=== PATIENT | male | born 1940 | race Caucasian/White ===

== ENCOUNTER 2020-07-11 10:26 | Outpatient (REF) | payer MEDICARE, MEDICAID, SELFPAY ==
[2020-07-11 11:09] LABS: Hematocrit 39.7 % (42-52); Hemoglobin 12.4 g/dl (14.0-18.0); Mean Corpuscular HGB Conc 31.2 g/dl (31.0-36.0); Mean Corpuscular Hemoglobin 27.8 pg (27.0-33.0); Mean Platelet Volume 11.3 fL (9.4-12.4); Platelet Count 246 X10*3/uL (160-400); Red Blood Count 4.46 X10*6/uL (4.60-5.80); Red Cell Distribution Width 14.2 % (11.0-16.0); White Blood Count 10.1 X10*3/uL (4.8-10.8)
[2020-07-11 11:39] LABS: Alanine Aminotransferase 13 U/L (0-40); Albumin Level 3.9 g/dL (3.5-5.0); Alkaline Phosphatase 95 U/L (39-117); Anion Gap 13 (12-20); Aspartate Amino Transferase 16 U/L (5-37); Bilirubin Total 0.5 mg/dL (0.0-1.0); Blood Urea Nitrogen 28 mg/dL (9-16); Calcium 9.4 mg/dL (8.4-10.2); Carbon Dioxide 34 mmol/L (22-29); Chloride 99 mmol/L (96-108); Cholesterol 271 mg/dL; Estimated Glomerular Filt Rate 49; Glucose Random 237 mg/dL (60-115); HDL Cholesterol 40 mg/dL; LDL Cholesterol Calculated 171 mg/dl; Potassium 4.9 mmol/L (3.3-5.1); Sodium 141 mmol/L (135-145); Total Protein 7.1 g/dL (6.5-8.0); Triglycerides 300 mg/dL
[2020-07-11 11:46] LABS: Creatinine Urine 100.23 mg/dL; Microalbum/Creatinine Ratio Ur 259.4 ug/mg cr
[2020-07-11 12:02] LABS: Thyroid Stimulating Hormone 1.87 uIU/mL (0.32-4.0)
[2020-07-11 12:13] LABS: Estimated Average Glucose 217 mg/dL; Hemoglobin A1c % 9.2 %
== END 2020-07-11 10:27 | disposition home or self-care (01) ==
LOC: HO.LAB 10:26
PROVIDERS: PCP Internal Medicine; Visit Provider Internal Medicine
DX: I10 Essential (primary) hypertension (principal); E78.00 Pure hypercholesterolemia, unspecified; E13.9 Other specified diabetes mellitus without complications
CPT/HCPCS: 36415; 80053; 80061; 82043; 83036; 84443; 85027

== ENCOUNTER 2020-07-27 11:24 | Inpatient (IN) | payer MEDICARE, MEDICAID, SELFPAY ==
[2020-07-27] VITALS (7 sets, daily range): BP systolic 111–185; BP diastolic 49–70; PULSE 61–88; RESP 16–19; TEMP 36.6–37.7; O2SAT 94–99; BMI 36.0
--- NOTE | ~2020-07-27 | US_ITS ---
EXAMINATION: US EXTRACRANIAL CAROTID DUPLEX, BILATERAL CLINICAL INFORMATION: CVA COMPARISON: None TECHNIQUE: Real-time ultrasound and Doppler techniques (integrating B-mode 2-D vascular images, Doppler spectral analysis and color-flow Doppler imaging) were utilized to interrogate the extracranial carotid arteries, the vertebral arteries and proximal subclavian arteries bilaterally. The degree of stenosis is determined by criteria similar to NASCET. FINDINGS: Right Side: 1. There is minimal atherosclerotic plaque seen in the bifurcation/proximal ICA region. 2. The common carotid artery PSV proximally is 149 cm/s and distally 123 cm/s. 3. The proximal internal carotid artery velocities are 90 cm/s systolic and 25 cm/s diastolic. 4. The proximal external carotid artery PSV is 159 cm/s. 5. The vertebral artery shows antegrade flow. 6. The subclavian artery waveforms are normal. Left Side: 1. There is minimal atherosclerotic plaque seen in the bifurcation/proximal ICA region. 2. The common carotid artery PSV proximally is 116 cm/s and distally 99 cm/s. 3. The proximal internal carotid artery velocities are 111 cm/s systolic and 26 cm/s diastolic. 4. The proximal external carotid artery PSV is 92 cm/s. 5. The vertebral artery shows antegrade flow. 6. The subclavian artery waveforms are normal. US/US carotid duplex BI IMPRESSION: 1. RIGHT: Minimal, non-hemodynamically significant stenosis of the proximal right internal carotid artery corresponding to a 0-49% stenosis by velocity criteria. 2. LEFT: Minimal, non-hemodynamically significant stenosis of the proximal left internal carotid artery corresponding to a 0-49% stenosis by velocity criteria.
--- NOTE | ~2020-07-27 | MR_ITS ---
EXAMINATION: BRAIN MRI WITHOUT CONTRAST CLINICAL INFORMATION: Altered mental status. Question acute stroke. New finding on CT scan. COMPARISON: CT scan of the head 07/27/2020. TECHNIQUE: Multiplanar MR imaging of the brain was performed without contrast. FINDINGS: There is restricted diffusion associated with an acute infarct involving the vascular territory of left posterior cerebral artery. There are a few small foci of magnetic susceptibility artifact within the cortical koch matter of the left occipital lobe demonstrated on the gradient recalled echo imaging that presumably represents petechial microhemorrhage. No overt hematoma. Numerous foci of T2 FLAIR signal hyperintense are also visualized within the periventricular white matter and griffin. No intracranial mass effect or midline shift. No abnormal extra-axial collection. Lateral and third ventricles are proportionate to the subarachnoid spaces. No hydrocephalus. Midline structures including the cervicomedullary junction are normal. No acute bone marrow signal changes. There is a small left mastoid effusion. Mild paranasal sinus disease primarily affecting the ethmoid air cells. Globes and orbits are symmetric. MR/MR head/brain wo con IMPRESSION: There is an acute infarct involving the vascular territory of left posterior cerebral artery and there is some curvilinear magnetic susceptibility artifact presumably representing a manifestation of petechial microhemorrhage. No overt parenchymal hematoma. Numerous chronic small vessel seen changes are also visualized throughout the periventricular white matter and griffin.
--- NOTE | ~2020-07-27 | XR_ITS ---
EXAMINATION: XR ABDOMEN KUB CLINICAL INDICATION: Exam. Evaluate for foreign body. MRI needed. COMPARISON: None TECHNIQUE: AP view of the abdomen. FINDINGS: The bowel gas pattern is normal with no evidence of ileus or obstruction. No unusual soft tissue calcifications are noted. Facet arthropathy is seen at the L4-L5 and L5-S1 level bilaterally. Iliac artery and superficial femoral artery calcifications seen bilaterally. No metallic radiopaque foreign body. XR/XR abdomen 1V IMPRESSION: No metallic radiopaque foreign body identified about the abdomen or pelvis.
--- NOTE | ~2020-07-27 | CT_ITS ---
EXAMINATION: CT ANGIOGRAM HEAD CT ANGIOGRAM NECK CLINICAL INFORMATION: Stroke. COMPARISON: CT head from 07/27/2020. Brain MRI from 07/27/2020. TECHNIQUE: Initial noncontrast pharmacy intake technician imaging of the head and neck was performed. Comparison is made with noncontrast head CT from earlier today. Test bolus sequences followed by intravenous administration 70 mL of Omnipaque 350. Helical imaging was performed in the axial plane from the aortic arch to the skull vertex. Delayed postcontrast imaging of the head was also performed. The data was processed at the certified ophthalmic technologist's workstation for generation of MIP sequences. Angled MIPs and volume rendered reformatted images were also generated at an offline 3D workstation. Stenoses are assessed in accordance with NASCET criteria unless otherwise indicated. DLP: 1573 mGy-cm This CT examination was performed using dose optimization techniques as appropriate, variously including the following: *Automated exposure control. *Adjustment of mA and/or kV according to patient size (this includes techniques or standardized protocols for targeted exams where dose is matched to indication/reason for exam; i.e. extremities or head). *Use of iterative reconstruction technique. FINDINGS: CT Head: Loss of waters-white matter differentiation throughout the parasagittal right occipitoparietal lobes correlating with previously demonstrated acute infarction. There is a superimposed on chronic encephalomalacia of the high left parietal lobe. Scattered hypoattenuation in the periventricular and deep white matter are consistent with moderate microangiopathy. Waters-white matter differentiation is preserved. Proportional prominence of the ventricles and sulcal spaces. No evidence for obstructive hydrocephalus. No abnormal mass effect or midline shift. No extra-axial fluid collections. No pathologic intra-axial arterial enhancement. No acute soft tissue or osseous abnormalities. Moderate mucosal thickening of the paranasal sinuses. The mastoid air cells and middle ear cavities are clear. CT Neck: The thyroid gland and remaining cervical soft tissues are within normal limits. Reversal the normal cervical lordosis centered on C4. Moderate to advanced degenerative disc disease from C2-C7 with disc-osteophyte complex formation. There appears to be at least mild spinal canal stenosis from C3-C6. Moderate to advanced facet and uncovertebral joint arthropathy from C3-C7. CT Upper Chest: The visualized lung apices and upper mediastinum are within normal limits. Neck CTA: Aortic Arch: Normal contour and caliber with moderate calcific atherosclerotic disease. Classic 3 vessel branching pattern of the aortic arch. Great Vessel Origins: No significant stenosis of the branch origins. Right Common Carotid Artery: Normal opacification without focal stenosis or occlusion. Cervical Right Internal Carotid Artery: Mild calcific atherosclerotic disease of the carotid bulb and proximal internal carotid artery without flow-limiting stenosis. Left Common Carotid Artery: Normal opacification without focal stenosis or occlusion. Cervical Left Internal Carotid Artery: Calcific atherosclerotic disease of the carotid bulb and proximal internal carotid artery causing less than 50% stenosis. Cervical Right Vertebral Artery: Dominant. The right vertebral artery is diminutive from its origin and largely terminates as the posterior inferior cerebellar artery. Threadlike continuation to the basilar artery. Cervical Left Vertebral Artery: The left vertebral artery is threadlike from its origin with concomitant decreased caliber of the foramen transversarium transversarium. Brain CTA: Intracranial Internal Carotid Arteries: Moderate calcific atherosclerotic disease of the intracranial internal carotid arteries without occlusion or flow-limiting stenosis. Normal contrast opacification of the petrous, cavernous, paraophthalmic, and supraclinoid segments of the internal carotid arteries without focal stenosis. 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 Right Anterior Cerebral Artery: The A1 segment is diminutive. Normal opacification of the distal segments of the DEMETRIO. Left Anterior Cerebral Artery: Normal A1 segment. Normal opacification of the distal segments of the DEMETRIO. Anterior Communicating Artery: Normal. Right Middle Cerebral Artery: Normal opacification of the M1 segment of the MCA without focal stenosis or occlusion. Normal arborization of the distal segments. Left Middle Cerebral Artery: Normal opacification of the M1 segment of the MCA without focal stenosis or occlusion. Normal arborization of the distal segments. Right Vertebral Artery: Normal opacification of the V4 segment. Normal opacification of the proximal segments of the posterior inferior cerebellar artery. Left Vertebral Artery: The V4 segment is minimally opacified with multifocal moderate irregular narrowings. Basilar Artery: The proximal basilar artery is threadlike in nature. The mid to distal basilar artery is reconstituted and largely fed by prominent left-sided trigeminal artery. Normal appearance of the proximal superior cerebellar arteries. Right Posterior Cerebral Artery: Normal P1 segment. Normal opacification of the distal segments of the MOVING PICTURE OPERATOR. Left Posterior Cerebral Artery: Normal P1 segment. Normal opacification of the distal segments of the MOVING PICTURE OPERATOR. CT/CT angio head neck stroke IMPRESSION: 1. Evolving acute infarct of the left occipitoparietal lobe as demonstrated on previous examinations. No demonstrated evidence of hemorrhagic conversion. Moderate underlying microangiopathy. 2. CTA of the head and neck is notable for a diminutive vertebrobasilar system (including the bilateral vertebral arteries and proximal basilar artery). The distal basilar artery and posterior cerebral arteries are largely fed by a prominent left-sided persistent trigeminal artery. Otherwise, CTA of the head and neck without proximal occlusion. 3. Advanced multilevel degenerative spondyloarthropathy of the cervical spine. There appears to be at least mild spinal canal stenosis from C3-C6.
--- NOTE | ~2020-07-27 | XR_ITS ---
EXAMINATION: XR CHEST CLINICAL INFORMATION: Acute mental status change. COMPARISON: 07/06/2019 chest/rib radiographs. TECHNIQUE: Frontal view of the chest was obtained. FINDINGS: No significant abnormality is noted involving the heart, lungs, mediastinum, bony thorax or soft tissues. XR/XR chest 1V IMPRESSION: No acute cardiopulmonary process.
--- NOTE | ~2020-07-27 | CT_ITS ---
EXAMINATION: CT HEAD WITHOUT CONTRAST CLINICAL INFORMATION: Acute mental status change. COMPARISON: None TECHNIQUE: Contiguous axial imaging was performed from the skull base to vertex without intravenous administration of contrast. This CT examination was performed using dose optimization techniques as appropriate, variously including the following: *Automated exposure control *Adjustment of mA and/or kV according to patient size (this includes techniques or standardized protocols for targeted exams where dose is matched to indication/reason for exam; i.e. extremities or head) *Use of iterative reconstruction technique DLP: 681 mGy-cm FINDINGS: An area of low-attenuation is seen in the left posterior parietal and occipital regions in the distribution of the left os or cerebral artery. No definitive hemorrhage, mass effect or midline shift is seen. There is mild widening of the cortical sulci and associated ventriculomegaly. Periventricular microvascular changes are seen most pronounced adjacent to the frontal horns. The lateral ventricles are symmetrical. The third and fourth ventricles are in their normal midline position. The basilar and prepontine cisterns are unremarkable. Sections through the bony calvarium are unremarkable. The orbits are intact. Mild mucosal thickening is seen in the paranasal sinuses. The remainder of the visualized paranasal sinuses are clear without air-fluid levels. The mastoid air cells are clear. CT/CT head/brain wo con IMPRESSION: 1. Age-indeterminate infarct in the distribution of the left posterior cerebral artery involving the left posterior parietal and occipital lobes. An acute infarct cannot be excluded. MRI is recommended to better assess for acuity. This critical result was discussed with Dr. Weathers at 12:30 PM on 05/26/2021 and it was ascertained that the content and urgency of the report was understood at the time of direct communication.
--- NOTE | 2020-07-27 11:26 | ED_ITS ---
HPI - Altered Mental Status General Chief Complaint: Altered Mental Status Stated Complaint: AMS PER VNA Time Seen by Provider: 07/27/20 11:31 Source: patient and EMS Mode of arrival: EMS Limitations: altered mental status History of Present Illness HPI narrative: 79 yo male with COPD, HTN, DM here with confusion reported by his [facility]NA the visit today, last known well not known - he has no complaints but is only oriented to person at this time, BS stable with EMS MD complaint: altered mental status Onset (ago): unknown Timing confirmed by: caregiver Severity: mild Consistency of symptoms: constant Context: COPD Associated symptoms: denies other symptoms Related Data Home Medications Medication Instructions Recorded Confirmed amlodipine 10 mg PO BEDTIME 07/27/20 07/27/20 aspirin 81 mg PO DAILY 07/27/20 07/27/20 atorvastatin 80 mg PO BEDTIME 07/27/20 07/27/20 cholecalciferol (vitamin D3) 25 mcg PO DAILY 07/27/20 07/27/20 furosemide 40 mg PO DAILY 07/27/20 07/27/20 glimepiride 4 mg PO DAILY 07/27/20 07/27/20 hydralazine 25 mg PO BID 07/27/20 07/27/20 insulin asp prt-insulin aspart 37 unit SUBCUT BEDTIME 07/27/20 07/27/20 [Novolog Mix 70-30FlexPen U-100] insulin asp prt-insulin aspart 48 unit SUBCUT DAILY 07/27/20 07/27/20 [Novolog Mix 70-30FlexPen U-100] losartan 100 mg PO DAILY 07/27/20 07/27/20 metoprolol succinate 150 mg PO DAILY 07/27/20 07/27/20 omeprazole 20 mg PO DAILY@0630 07/27/20 07/27/20 Allergies Allergy/AdvReac Type Severity Reaction Status Date / Time Penicillins [PENICILLINS] Allergy Intermediate RASH Unverified 02/24/20 17:47 Review of Systems Review of Systems: ROS unable to be obtained due to altered mental status [facility] Past Medical History Attestation statement: The following information was validated with the patient. Source: old records reviewed Medical History (Updated 07/27/20 @ 15:04 by Penny Weathers DO) COPD (chronic obstructive pulmonary disease) Diabetes HTN (hypertension) Hyperlipidemia Pneumonia Social History Social History (Updated 07/27/20 @ 11:34 by Penny Weathers DO) Alcohol intake: unknown Smoking Status: Smoker, status unknown Use of substances other than those prescribed or required for medical reasons: Unknown Advance Directives: No Advance Directives Information Provided: No Physical Exam Vital Signs: Vital Signs: Last Vital Signs Temp 99.9 F 07/27/20 11:34 Pulse 69 07/27/20 11:34 Resp 18 07/27/20 11:34 BP 180/64 H 07/27/20 11:34 Pulse Ox 98 07/27/20 11:34 Body Mass Index 36.0 Appearance: Alert. Oriented X1. No acute distress. Eyes: Pupils equal, round and reactive to light. ENT: Pharynx normal. Neck: Normal inspection. Neck supple. CVS: Normal heart rate and rhythm. Pulses normal. Respiratory: No respiratory distress. Breath sounds normal. Abdomen: Soft and nontender. Skin: Skin warm and dry. Normal skin color. Normal skin turgor. Extremities: No lower extremity edema. No calf ttp Neuro: Oriented X 1. No motor deficit. No sensory deficit. patient denies visual changes, states he has normal sensation, patient was not ambulated NIH Stroke Scale Internal: Initial- Upon Arrival Level of Consciousness: Not Alert; but arousable by minor stimulation Level of Consciousness Questions: Answers one question correctly Level of Consciousness Commands: Performs both tasks correctly Best Gaze: Normal Visual: No visual loss Facial Palsy: Normal Motor Arm (Right): No drift Motor Arm (Left): No drift Motor Leg (Right): No drift Motor Leg (Left): No drift Limb Ataxia: Absent Sensory: Normal Best Language: No aphasia Dysarthia: Normal Extinction and Inattention: No abnormality Score: 2 Course Course Course Narrative: call from Radiology : 1231 pm 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 ?subacute no shift no hemorrhage xrays ordered for FB needs MRI for ?acute stroke family states AMS since yesterday - no implants or metal in body for MRI MRI acute stroke - planned admit, neurology and workers compensation coordinator involved - 81mg ASA daily, will see in ED, okay to keep here MDM - Altered Mental Status MDM Narrative Medical decision making narrative: 79 yo male with COPD, HTN, HPL, DM here with AMS noted by VNA I do not know his last known well, lives alone per EMS - he has no focal deficits other than only oriented to self, follows all commands, no signs of trauma at this time will need labs, CXR, venous blood gas, ETOH level, head CT dispo per results and findings. Lab Data Result diagrams: 07/27/20 12:43 07/27/20 12:43 Labs: Lab Results 07/27/20 07/27/20 07/27/20 Range/Units 12:42 12:42 12:43 WBC 9.2 (4.8-10.8) X10*3/uL RBC 4.28 L (4.60-5.80) X10*6/uL Hgb 11.9 L (14.0-18.0) g/dl Hct 38.2 L (42-52) % MCV 89.3 (80-98) fL MCH 27.8 (27.0-33.0) pg MCHC 31.2 (31.0-36.0) g/dl RDW 14.5 (11.0-16.0) % Plt Count 259 (160-400) X10*3/uL MPV 11.3 (9.4-12.4) fL Immature Gran % (Auto) 0.3 (0.0-0.4) % Neut % (Auto) 66.9 (45-73) % Lymph % (Auto) 22.9 (20-40) % Levy % (Auto) 7.2 (2-11) % Eos % (Auto) 2.3 (0-4) % Baso % (Auto) 0.4 (0-2) % Lymph # (Auto) 2.1 (1.2-4.9) X10*3/uL Levy # (Auto) 0.7 (0.1-1.2) X10*3/uL Eos # (Auto) 0.2 (0.0-0.4) X10*3/uL Baso # (Auto) 0.0 (0.0-0.2) X10*3/uL Abs Immat Gran (auto) 0.03 (0.00-0.03) X10*3/uL Absolute Neuts (auto) 6.2 (2.0-8.3) X10*3/uL Absolute Nucleated RBC 0.000 (0.0-0.012) X10*3/uL Nucleated RBC % (auto) 0.0 (0.0-0.2) /100WBC PT (10.8-13.0) SEC INR (0.9-1.1) APTT (24.1-38.0) SEC VBG pH 7.40 (7.32-7.43) VBG pCO2 62 mmHg VBG pO2 43 mmHg VBG HCO3 38 mmol/L VBG O2 Saturation 67.0 % VBG Base Excess 11.8 mmol/L Sodium (135-145) mmol/L Potassium (3.3-5.1) mmol/L Chloride (96-108) mmol/L Carbon Dioxide (22-29) mmol/L Anion Gap (12-20) BUN (9-16) mg/dL Creatinine (0.5-1.4) mg/dL Estim Creat Clear Calc Estimated GFR Random Glucose (60-115) mg/dL Calcium (8.4-10.2) mg/dL Magnesium (1.6-2.6) mg/dL Total Bilirubin (0.0-1.0) mg/dL Direct Bilirubin (0.0-0.5) mg/dL AST (5-37) U/L ALT (0-40) U/L Alkaline Phosphatase (39-117) U/L Ammonia (13-55) umol/L Total Creatine Kinase (38-174) U/L Troponin I High Sens 10.1 (<3.5-35.0) ng/L Total Protein (6.5-8.0) g/dL Albumin (3.5-5.0) g/dL Lipase (8-78) U/L Ethyl Alcohol mg/dL COVID-19 (SHANA) (Negative) COVID-19 Clin Com 07/27/20 07/27/20 07/27/20 Range/Units 12:43 12:43 12:43 WBC (4.8-10.8) X10*3/uL RBC (4.60-5.80) X10*6/uL Hgb (14.0-18.0) g/dl Hct (42-52) % MCV (80-98) fL MCH (27.0-33.0) pg MCHC (31.0-36.0) g/dl RDW (11.0-16.0) % Plt Count (160-400) X10*3/uL MPV (9.4-12.4) fL Immature Gran % (Auto) (0.0-0.4) % Neut % (Auto) (45-73) % Lymph % (Auto) (20-40) % Levy % (Auto) (2-11) % Eos % (Auto) (0-4) % Baso % (Auto) (0-2) % Lymph # (Auto) (1.2-4.9) X10*3/uL Levy # (Auto) (0.1-1.2) X10*3/uL Eos # (Auto) (0.0-0.4) X10*3/uL Baso # (Auto) (0.0-0.2) X10*3/uL Abs Immat Gran (auto) (0.00-0.03) X10*3/uL Absolute Neuts (auto) (2.0-8.3) X10*3/uL Absolute Nucleated RBC (0.0-0.012) X10*3/uL Nucleated RBC % (auto) (0.0-0.2) /100WBC PT 12.9 (10.8-13.0) SEC INR 1.1 (0.9-1.1) APTT 39.5 H (24.1-38.0) SEC VBG pH (7.32-7.43) VBG pCO2 mmHg VBG pO2 mmHg VBG HCO3 mmol/L VBG O2 Saturation % VBG Base Excess mmol/L Sodium 142 (135-145) mmol/L Potassium 4.1 (3.3-5.1) mmol/L Chloride 100 (96-108) mmol/L Carbon Dioxide 35 H (22-29) mmol/L Anion Gap 11 L (12-20) BUN 22 H (9-16) mg/dL Creatinine 1.16 (0.5-1.4) mg/dL Estim Creat Clear Calc 52.8 Estimated GFR > 60 Random Glucose 101 D (60-115) mg/dL Calcium 9.5 (8.4-10.2) mg/dL Magnesium 2.0 (1.6-2.6) mg/dL Total Bilirubin 0.7 (0.0-1.0) mg/dL Direct Bilirubin 0.2 (0.0-0.5) mg/dL AST 12 (5-37) U/L ALT 11 (0-40) U/L Alkaline Phosphatase 90 (39-117) U/L Ammonia 23 (13-55) umol/L Total Creatine Kinase 75 (38-174) U/L Troponin I High Sens (<3.5-35.0) ng/L Total Protein 6.8 (6.5-8.0) g/dL Albumin 3.8 (3.5-5.0) g/dL Lipase 13 (8-78) U/L Ethyl Alcohol mg/dL COVID-19 (SHANA) (Negative) COVID-19 Clin Com 07/27/20 07/27/20 Range/Units 12:43 13:00 WBC (4.8-10.8) X10*3/uL RBC (4.60-5.80) X10*6/uL Hgb (14.0-18.0) g/dl Hct (42-52) % MCV (80-98) fL MCH (27.0-33.0) pg MCHC (31.0-36.0) g/dl RDW (11.0-16.0) % Plt Count (160-400) X10*3/uL MPV (9.4-12.4) fL Immature Gran % (Auto) (0.0-0.4) % Neut % (Auto) (45-73) % Lymph % (Auto) (20-40) % Levy % (Auto) (2-11) % Eos % (Auto) (0-4) % Baso % (Auto) (0-2) % Lymph # (Auto) (1.2-4.9) X10*3/uL Levy # (Auto) (0.1-1.2) X10*3/uL Eos # (Auto) (0.0-0.4) X10*3/uL Baso # (Auto) (0.0-0.2) X10*3/uL Abs Immat Gran (auto) (0.00-0.03) X10*3/uL Absolute Neuts (auto) (2.0-8.3) X10*3/uL Absolute Nucleated RBC (0.0-0.012) X10*3/uL Nucleated RBC % (auto) (0.0-0.2) /100WBC PT (10.8-13.0) SEC INR (0.9-1.1) APTT (24.1-38.0) SEC VBG pH (7.32-7.43) VBG pCO2 mmHg VBG pO2 mmHg VBG HCO3 mmol/L VBG O2 Saturation % VBG Base Excess mmol/L Sodium (135-145) mmol/L Potassium (3.3-5.1) mmol/L Chloride (96-108) mmol/L Carbon Dioxide (22-29) mmol/L Anion Gap (12-20) BUN (9-16) mg/dL Creatinine (0.5-1.4) mg/dL Estim Creat Clear Calc Estimated GFR Random Glucose (60-115) mg/dL Calcium (8.4-10.2) mg/dL Magnesium (1.6-2.6) mg/dL Total Bilirubin (0.0-1.0) mg/dL Direct Bilirubin (0.0-0.5) mg/dL AST (5-37) U/L ALT (0-40) U/L Alkaline Phosphatase (39-117) U/L Ammonia (13-55) umol/L Total Creatine Kinase (38-174) U/L Troponin I High Sens (<3.5-35.0) ng/L Total Protein (6.5-8.0) g/dL Albumin (3.5-5.0) g/dL Lipase (8-78) U/L Ethyl Alcohol < 10 mg/dL COVID-19 (SHANA) Negative (Negative) COVID-19 Clin Com See Note ECG Data ECG #1: Attestation: I personally reviewed and interpreted this ECG as follows: ECG interpretation date: 07/27/20 ECG interpretation time: 12:26 Interpretation: Rate: 63 Rhythm: NSR with occ PVCs Spelter: normal Normal P waves. Normal LAUREN. Normal QRS complex. ST T wave : no NEAL, normal qTC: normal prior studies: no acute ischemia The study has been interpreted contemporaneously by me. . Discharge Plan Discharge Clinical Impression: Acute CVA (cerebrovascular accident), Acute alteration in mental status Patient Disposition: Admitted As Inpatient
--- NOTE | 2020-07-27 12:22 | ECG_ITS ---
Test Reason : HYPERTENSION Blood Pressure : / mmHG Vent. Rate : 063 BPM Atrial Rate : 063 BPM P-R Int : 170 ms QRS Dur : 080 ms QT Int : 394 ms P-R-T Axes : 042 008 021 degrees QTc Int : 403 ms Sinus rhythm with frequent Premature ventricular complexes Nonspecific T changes abnormal ecg When compared to the previous EKG of Premature ventricular complexes Present Referred By: Penny Weathers Electronically Signed By:Mao Reddy
[2020-07-27 12:51] LABS: MANUAL DIFF FLAG NO
[2020-07-27 12:57] LABS: Base Excess VBG 11.8 mmol/L; HCO3 VBG 38 mmol/L; PCO2 VBG 62 mmHg; PO2 VBG 43 mmHg
[2020-07-27 12:58] LABS: Basophils Percent Auto 0.4 % (0-2); Eosinophils Absolute Auto 0.2 X10*3/uL (0.0-0.4); Eosinophils Percent Auto 2.3 % (0-4); Hematocrit 38.2 % (42-52); Hemoglobin 11.9 g/dl (14.0-18.0); Imm Gran Abs Auto 0.03 X10*3/uL (0.00-0.03); Imm Gran Pct Auto 0.3 % (0.0-0.4); Lymphocytes Absolute Auto 2.1 X10*3/uL (1.2-4.9); Lymphocytes Percent Auto 22.9 % (20-40); Mean Corpuscular HGB Conc 31.2 g/dl (31.0-36.0); Mean Corpuscular Hemoglobin 27.8 pg (27.0-33.0); Mean Corpuscular Volume 89.3 fL (80-98); Mean Platelet Volume 11.3 fL (9.4-12.4); Monocytes Absolute Auto 0.7 X10*3/uL (0.1-1.2); Monocytes Percent Auto 7.2 % (2-11); Neutrophils Absolute Auto 6.2 X10*3/uL (2.0-8.3); Neutrophils Percent Auto 66.9 % (45-73); Platelet Count 259 X10*3/uL (160-400); Red Blood Count 4.28 X10*6/uL (4.60-5.80); Red Cell Distribution Width 14.5 % (11.0-16.0); White Blood Count 9.2 X10*3/uL (4.8-10.8)
[2020-07-27] MEDS: Acetaminophen 325 MG TABLET 650 MG PO (12:58)
[2020-07-27 13:12] LABS: Ammonia 23 umol/L (13-55)
[2020-07-27 13:13] LABS: INTERNATIONAL NORM RATIO 1.1 (0.9-1.1); Prothrombin Time 12.9 SEC (10.8-13.0)
[2020-07-27 13:16] LABS: Partial Thromboplastin Time 39.5 SEC (24.1-38.0)
[2020-07-27 13:22] LABS: Ethanol < 10 mg/dL
[2020-07-27 13:24] LABS: Alanine Aminotransferase 11 U/L (0-40); Albumin Level 3.8 g/dL (3.5-5.0); Alkaline Phosphatase 90 U/L (39-117); Anion Gap 11 (12-20); Aspartate Amino Transferase 12 U/L (5-37); Bilirubin Direct 0.2 mg/dL (0.0-0.5); Bilirubin Total 0.7 mg/dL (0.0-1.0); Blood Urea Nitrogen 22 mg/dL (9-16); Calcium 9.5 mg/dL (8.4-10.2); Carbon Dioxide 35 mmol/L (22-29); Chloride 100 mmol/L (96-108); Creatinine Clr Calc Pharmacy 52.8; Estimated Glomerular Filt Rate > 60; Glucose Random 101 mg/dL (60-115); Lipase 13 U/L (8-78); Potassium 4.1 mmol/L (3.3-5.1); Sodium 142 mmol/L (135-145); Total Protein 6.8 g/dL (6.5-8.0)
[2020-07-27 13:25] LABS: COVID-19 Test Negative (Negative); IDNOW Serial# 9DD0AD1C
[2020-07-27 13:25] LABS: Troponin-I High Sensitivity 10.1 ng/L (<3.5-35.0)
--- NOTE | 2020-07-27 14:00 | MHC.STROKE ---
Addendum entered by Keke Hager RN 07/31/20 14:30: 07/30/20 1752, patient was discharged to [facility], I clarified this with Case Managment. Addendum entered by Keke Hager RN 07/28/20 15:49: I MET WITH THE PATIENT TODAY IN ICU OVERFLOW. HE WAS VERY COOPERATIVE. HIS NIHSS = 5. RIGHT HEMIANOPSIA, NEGLECT AND ATAXIA. I REVIEWED THE STROKE EDUCATION BOOKLET, HIS INDIVIDUAL RISK FACTORS, HIS MRI IMAGE WITH THE LOCATION OF THE STROKE AND HOW THAT AFFECTS HIS VISION ON THE RIGHT SIDE OF EACH EYE. I SPENT TIME EXPLAINING HIS DEFICIT. HE COULD NOT IDENTIFY WHEN HE LOST HIS VISION. I ANSWERED ALL OF HIS QUESTIONS. I WILL CONTINUE TO FOLLOW. Addendum entered by Keke Hager RN 07/27/20 16:14: I REVIEWED THE MRI WITH DR BENJAMIN. HE WILL SEE THE PATIENT TONIGHT. NO NEED TO TRANSFER. ADMIT TO TELEMETRY. SEE HIS NOTE ONCE HE EXAMINES THE PATIENT. Original Note: 1118 EMS PRE-NOTIFICATION, ARRIVED AT 1124. C/O AMS, FOUND BY VNA. LAST KNOWN WELL YESTERDAY PER FAMILY. 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 AWAKE, ALERT, BU UNABLE TO ANSWER EITHER QUESTION CORRECTLY OR FOLLOW COMMANDS. DIFFICULT TO TEST VISUAL FIELD, AWAIT NEUROLOGY EXAM FOR COMPLETE NIHSS. BP ELEVATED 180/64. 1255 PASSED SWALLOW SCREEN. TYLENOL GIVEN WITOUT DIFFICULTY AT 1258. PMH AND STROKE RISK FACTORS INCLUDE: HTN, HDL, DM. I DID SPEAK WITH DR GLASER AND SHE HAS UPDATED THE FAMILY. I WILL CONTINUE TO FOLLOW.
[2020-07-27] MEDS: Aspirin Enteric Coated 325 MG TABLET.DR PO (14:28)
--- NOTE | 2020-07-27 14:33 | PC.NURSE ---
PT TOLERATING PO W/O ISSUE. MEDICATED FURTHER PER EMAR. PLAN FOR MRI D/T CT SCAN FINDINGS, SCREENING FORM COMPLETED W FAMILY ASSISTANCE. PT C/O R SIDE VISION LOSS WHICH IS NEW FOR HIM TODAY, PT STS.
--- NOTE | 2020-07-27 16:10 | PC.NURSE ---
RETURNED FROM MRI, AWAITING NEURO CONSULT. PER NEUOLOGY, NO NEED FOR TRANSPORT TO HIGHER LEVEL OF CARE, PLAN FOR INPT ADMISSION.
--- NOTE | 2020-07-27 17:06 | PM.EVENT ---
Event Note Date of Service: 07/27/20 Event Note: Patient seen and examined independently and was present during busby portion of E/M service. Agree with midlevel's history, physical, assessment, and plan. 79M presented with ams found to have acute cva acute cva antiplatelet, statin, neuro eval, rehab
--- NOTE | 2020-07-27 17:14 | PM.NEUROCN ---
History of Present Illness Data of Consult Service Date: 07/27/20 Primary Care Provider: Gonzales Ross MD HPI Reason for consult: Altered mental status This is a 79-year-old man was a poor historian was brought in because the family noted altered mental status. He has a history of hypertension and hyperlipidemia,Diabetes and GERD.He denies any complaints specifically headache dizziness weakness or numbness. He has a right homonymous hemianopsia but is totally unaware of it. Review of Systems Eyes: Eyes: Reports no additional eye complaints ENT: Reports system reviewed and no additional complaints, except as documented and Reports Normal hearing present Cardiovascular: Cardiovascular: Reports no additional cardiovascular complaints Respiratory: Respiratory: Reports no additional respiratory complaints Gastrointestinal: Gastrointestinal: Reports no additional gastrointestinal complaints Genitourinary: Genitourinary: Reports no additional male genitourinary complaints Musculoskeletal: Musculoskeletal: Reports no additional musculoskeletal complaints Integumentary/Breasts: Skin/Breast: Reports system reviewed and no additional complaints, except as docu Neurologic: Reports as per HPI and Reports Normal hearing present Psychiatric: Psychiatric: Reports as per HPI Endocrine: Endocrine: Reports no additional endocrine complaints Hematologic/Lymphatic: Hematologic/Lymphatic: Reports no additional hematologic/lymphatic complaints Allergic/Immunologic: Allergic/Immunologic: Reports no additional allergic/immunologic complaints [facility] Past Medical History Medical History (Updated 07/27/20 @ 17:17 by Fidel Alva MD) COPD (chronic obstructive pulmonary disease) Diabetes HTN (hypertension) Hyperlipidemia Pneumonia Social History Social History (Updated 07/27/20 @ 11:34 by Penny Weathers DO) Alcohol intake: unknown Smoking Status: Smoker, status unknown Use of substances other than those prescribed or required for medical reasons: Unknown Advance Directives: No Advance Directives Information Provided: No Meds Allergies Allergy/AdvReac Type Severity Reaction Status Date / Time Penicillins [PENICILLINS] Allergy Intermediate RASH Unverified 02/24/20 17:47 Active Medications: Current Medications Generic Name Dose Route Start Last Admin Trade Name Freq PRN Reason Stop Dose Admin Acetaminophen 650 mg 07/27/20 17:07 Acetaminophen 325 Mg Tablet PO Q6H PRN Pain, Mild (Pain Scale 1-3) Amlodipine Besylate 10 mg 07/27/20 21:00 Amlodipine Besylate 10 Mg Tablet PO BEDTIME EBER Protocol Aspirin 81 mg 07/28/20 09:00 Aspirin Enteric Coated 81 Mg Tablet. PO DAILY REPLACED BY [facility] Atorvastatin Calcium 80 mg 07/27/20 21:00 Atorvastatin Calcium 80 Mg Tablet PO BEDTIME REPLACED BY [facility] Furosemide 40 mg 07/28/20 09:00 Furosemide 40 Mg Tablet PO DAILY REPLACED BY [facility] Protocol Glipizide 10 mg 07/28/20 09:00 Glipizide 10 Mg Tablet PO DAILY REPLACED BY [facility] Hydralazine HCl 25 mg 07/27/20 21:00 Hydralazine Hcl 25 Mg Tablet PO BID REPLACED BY [facility] Protocol Metoprolol Succinate 150 mg 07/28/20 09:00 Metoprolol Succinate Er 100 Mg Tab.Er.24h PO DAILY REPLACED BY [facility] Protocol Omeprazole 20 mg 07/28/20 06:30 Omeprazole 20 Mg Capsule. PO DAILY@0630 REPLACED BY [facility] Ondansetron HCl 4 mg 07/27/20 17:07 Ondansetron Hcl 4 Mg/2 Ml Vial IVPUSH Q8H PRN Nausea and Vomiting Pharmacy Consult 1 each 07/27/20 11:34 Consult Rx Perform Med Rec MISCELLANE ONCE PRN Consult order Sodium Chloride 3 ml 07/28/20 00:00 0.9 % Sodium Chloride Flush 3 Ml Syringe IVFLUSH QSHIFT REPLACED BY [facility] Vitamin D 25 mcg 07/28/20 09:00 Cholecalciferol (Vitamin D3) 25 Mcg Tablet PO DAILY REPLACED BY [facility] Home Medications Medication Instructions Recorded Confirmed Last Taken Type amlodipine 10 mg PO BEDTIME 07/27/20 07/27/20 Unknown History aspirin 81 mg PO DAILY 07/27/20 07/27/20 Unknown History atorvastatin 80 mg PO BEDTIME 07/27/20 07/27/20 Unknown History cholecalciferol (vitamin D3) 25 mcg PO DAILY 07/27/20 07/27/20 Unknown History furosemide 40 mg PO DAILY 07/27/20 07/27/20 Unknown History glimepiride 4 mg PO DAILY 07/27/20 07/27/20 Unknown History hydralazine 25 mg PO BID 07/27/20 07/27/20 Unknown History insulin asp prt-insulin aspart 37 unit SUBCUT BEDTIME 07/27/20 07/27/20 Unknown History [Novolog Mix 70-30FlexPen U-100] insulin asp prt-insulin aspart 48 unit SUBCUT DAILY 07/27/20 07/27/20 Unknown History [Novolog Mix 70-30FlexPen U-100] losartan 100 mg PO DAILY 07/27/20 07/27/20 Unknown History metoprolol succinate 150 mg PO DAILY 07/27/20 07/27/20 Unknown History omeprazole 20 mg PO DAILY@0630 07/27/20 07/27/20 Unknown History Physical Exam Vital Signs: Vital Signs: Last Vital Signs Temp 97.9 F 07/27/20 16:12 Pulse 61 07/27/20 16:12 Resp 18 07/27/20 16:12 BP 147/57 H 07/27/20 16:12 Pulse Ox 94 07/27/20 16:12 Body Mass Index 36.0 Const: General: cooperative, comfortable, no acute distress, well developed, alert and awake Nutritional Appearance: well nourished Orientation/consciousness: oriented to person, oriented to place and oriented to time Limitations: no limitations HENMT: Head: Yes normal to inspection, Yes normocephalic and Yes atraumatic Ears: hearing grossly normal bilaterally General nose exam: Normal external nose present Face and sinus: Yes normal facial exam Mouth: Normal oral and palatal mucosa present Eyes: General: appearance normal, both eyes and all related structures Visual Pool: abnormal by confrontation (Right homonymous hemianopsia) Alignment and Position: alignment normal Periorbital: periorbital findings normal Eyelids: Yes eyelids normal Conjunctivae: conjunctivae normal Sclerae: sclerae normal Corneas: corneas normal Pupils: Equal, round and reactive pupils present and Pupil accommodation reflex normal EOM: EOMs intact bilaterally Direct Ophthalmoscopy: normal light reflex Neck: Neck: Yes normal visual inspection, Yes full ROM and Yes no meningeal signs Thyroid: Thyroid normal Carotids: normal carotid upstroke and bounding pulses Chest: Chest palpation & inspection: normal inspection of the chest Resp: Effort & Inspection: normal respiratory effort Auscultation: clear to auscultation bilaterally Cardio: Rate: regular rate Rhythm: regular rhythm Heart sounds: S1 normal heart sound present and S2 normal heart sound present Peripheral pulses: Peripheral pulses 2+ throughout GI: Inspection: Yes normal to inspection Percussion: Yes normal to percussion Auscultation: normal bowel sounds Rectal Exam - Male: Yes deferred Back/Spine/Pelvis: Cervical Spine: normal cervical lordosis and cervical ROM normal Thoracic/Lumbar Spine: thoracic and lumbar spine normal to inspection Skin: General skin exam: no rashes or lesions noted Neuro: General: oriented to person, oriented to place, oriented to time, gait normal, tone normal, moves all extremities, Normal light touch and pain sensation, no meningeal signs, no focal motor deficits, normal sensation to monofilament and deep tendon reflexes 2+ bilaterally Cranial nerves: Yes Equal, round and reactive pupils present, Yes Bilaterally intact EOM present, Yes Nystagmus not present, Yes Normal facial strength present, Yes Midline tongue present, Yes Normal gag reflex present, Yes Symmetric palate elevation present, Yes Normal hearing present and Yes Ability to bilaterally rotate head present Speech: Other speech findings present (Neuro) Gait exam (Neuro): Normal gait present Motor exam (neuro): 5/5 motor strength present throughout, Pronator motor function not present, no tremor noted, no asterixis, Motor fasciculations not present, Normal motor muscle tone present throughout and Motor abnormalities not present Sensory Exam: Bilaterally intact graphesthesia Deep tendon reflexes (DTR's): Right triceps reflex intensity grade: 2+, Left triceps reflex intensity grade: 2+, Rt Biceps (C5, C6): 2+, Left biceps reflex intensity grade: 2+, Right brachioradialis reflex intensity grade: 2+, Left brachioradialis reflex intensity grade: 2+, Right patellar reflex intensity grade: 2+, Left patellar reflex intensity grade: 2+, Right ankle reflex intensity grade: 2+ and Left ankle reflex intensity grade: 2+ Plantar Reflex Responses: downgoing: right, left and bilateral Coordination: [id number] test normal, [id number] test normal, tandem gait normal and Romberg test negative Pupils: Normal pupillary reactivity/response: bilateral Extrem: General: Yes normal to inspection, Yes normal exam except as noted and Yes no pedal edema Psych: Appearance: grossly normal Mental Status: mental status grossly normal Speech and movement: Normal speech and movement present and Clear speech present Affect: normal affect Attitude: cooperative Thought process: Normal thought process present Results Labs CBC & Chem 7: 07/27/20 12:43 07/27/20 12:43 Labs: Short CBC 07/27/20 Range/Units 12:43 WBC 9.2 (4.8-10.8) X10*3/uL Hgb 11.9 L (14.0-18.0) g/dl Hct 38.2 L (42-52) % Plt Count 259 (160-400) X10*3/uL BMP 07/27/20 12:43 Sodium 142 Potassium 4.1 Chloride 100 Carbon Dioxide 35 H BUN 22 H Creatinine 1.16 Calcium 9.5 Cardiac Enzymes 07/27/20 Range/Units 12:43 Total Creatine Kinase 75 (38-174) U/L Liver Function 07/27/20 Range/Units 12:43 Total Bilirubin 0.7 (0.0-1.0) mg/dL Direct Bilirubin 0.2 (0.0-0.5) mg/dL AST 12 (5-37) U/L ALT 11 (0-40) U/L Alkaline Phosphatase 90 (39-117) U/L Albumin 3.8 (3.5-5.0) g/dL Assessment and Plan (1) Acute CVA (cerebrovascular accident): Problem details: Acute right homonymous hemianopsia secondary to left posterior cerebral distribution infarct probably embolic Status: Acute Echocardiogram, cardiac monitoring for atrial fibrillation, CTA of the neck and head if his kidney functions are normal (2) Acute alteration in mental status: Status: Acute
--- NOTE | 2020-07-27 17:46 | P.HPHOSP_ITS ---
History of Present Illness Date of Service: 07/27/20 79 year old man presenting with confusion. According to the patients step daughter, Ashely Bass ([phone]) he had seemed more confused Over the last few days. She reports that for some time now he has had some increasing forgetfulness. Apparently he had complained to his that he was having difficulty seeing out of his right eye yesterday. She suggested that he go to e evaluated in the emergency department however patient declined. Today he had gotten up and ended up going back to bed and when he woke up he told his that he had a headache. His called her daughter and they decided to call EMS for further evaluation. Patient was quite vague in the ER was unable to give much information. The he did report though that he had a central headache. MRI Showed acute infarct involving the vascular territory of left posterior cerebral artery and there is some curvilinear magnetic susceptibility artifact presumably representing a manifestation of petechial microhemorrhage. He was given aspirin, tylenol, zofran in the ED. He will be admitted fort further management and treatment of acute stroke. Review of Systems Review of Systems: Yes Unobtainable due to mental status [facility] Medical History COPD (chronic obstructive pulmonary disease) Diabetes HTN (hypertension) Hyperlipidemia Pneumonia Social History (Updated 07/27/20 @ 11:34 by Penny Weathers DO) Alcohol intake: unknown Smoking Status: Smoker, status unknown Use of substances other than those prescribed or required for medical reasons: Unknown Advance Directives: No Advance Directives Information Provided: No service: No Current occupational status: retired Meds Allergies Allergy/AdvReac Type Severity Reaction Status Date / Time Penicillins [PENICILLINS] Allergy Intermediate RASH Verified 07/27/20 21:30 Active Medications: Current Medications Generic Name Dose Route Start Last Admin Trade Name Freq PRN Reason Stop Dose Admin Acetaminophen 650 mg 07/27/20 17:07 Acetaminophen 325 Mg Tablet PO Q6H PRN Pain, Mild (Pain Scale 1-3) Amlodipine Besylate 10 mg 07/27/20 21:00 Amlodipine Besylate 10 Mg Tablet PO BEDTIME [facility] Protocol Aspirin 81 mg 07/28/20 09:00 Aspirin Enteric Coated 81 Mg Tablet. PO DAILY [facility] Atorvastatin Calcium 80 mg 07/27/20 21:00 Atorvastatin Calcium 80 Mg Tablet PO BEDTIME [facility] Furosemide 40 mg 07/28/20 09:00 Furosemide 40 Mg Tablet PO DAILY [facility] Protocol Glipizide 10 mg 07/28/20 09:00 Glipizide 10 Mg Tablet PO DAILY [facility] Hydralazine HCl 25 mg 07/27/20 21:00 Hydralazine Hcl 25 Mg Tablet PO BID [facility] Protocol Metoprolol Succinate 150 mg 07/28/20 09:00 Metoprolol Succinate Er 100 Mg Tab.Er.24h PO DAILY [facility] Protocol Omeprazole 20 mg 07/28/20 06:30 Omeprazole 20 Mg Capsule.Dr PO DAILY@0630 [facility] Ondansetron HCl 4 mg 07/27/20 17:07 Ondansetron Hcl 4 Mg/2 Ml Vial IVPUSH Q8H PRN Nausea and Vomiting Pharmacy Consult 1 each 07/27/20 11:34 Consult Rx Perform Med Rec MISCELLANE ONCE PRN Consult order Sodium Chloride 3 ml 07/28/20 00:00 0.9 % Sodium Chloride Flush 3 Ml Syringe IVFLUSH QSHIFT [facility] Vitamin D 25 mcg 07/28/20 09:00 Cholecalciferol (Vitamin D3) 25 Mcg Tablet PO DAILY [facility] Home Medications Medication Instructions Recorded Confirmed Last Taken Type amlodipine 10 mg PO BEDTIME 07/27/20 07/27/20 Unknown History aspirin 81 mg PO DAILY 07/27/20 07/27/20 Unknown History atorvastatin 80 mg PO BEDTIME 07/27/20 07/27/20 Unknown History cholecalciferol (vitamin D3) 25 mcg PO DAILY 07/27/20 07/27/20 Unknown History furosemide 40 mg PO DAILY 07/27/20 07/27/20 Unknown History glimepiride 4 mg PO DAILY 07/27/20 07/27/20 Unknown History hydralazine 25 mg PO BID 07/27/20 07/27/20 Unknown History insulin asp prt-insulin aspart 37 unit SUBCUT BEDTIME 07/27/20 07/27/20 Unknown History [Novolog Mix 70-30FlexPen U-100] insulin asp prt-insulin aspart 48 unit SUBCUT DAILY 07/27/20 07/27/20 Unknown History [Novolog Mix 70-30FlexPen U-100] losartan 100 mg PO DAILY 07/27/20 07/27/20 Unknown History metoprolol succinate 150 mg PO DAILY 07/27/20 07/27/20 Unknown History omeprazole 20 mg PO DAILY@0630 07/27/20 07/27/20 Unknown History Physical Exam Vital Signs and Narrative: Vital Signs: Last Vital Signs Temp 98.1 F 07/27/20 17:37 Pulse 78 07/27/20 17:37 Resp 16 07/27/20 17:37 BP 111/65 07/27/20 17:37 Pulse Ox 99 07/27/20 17:37 Body Mass Index 36.0 Appearing in no acute distress head is normocephalic atraumatic eyes No noted trauma mouth throat mucous membranes are intact and moist neck is supple no lymphadenopathy, no JVD noted lung sounds are clear to auscultation heart regular rate rhythm, clear S1, S2 positive bowel sounds, abdomen is soft, nontender neuro patient is alert, no focal deficits Results Labs CBC and Chem 7: 07/28/20 05:38 07/28/20 05:38 Labs: Laboratory Results - last 24 hr 07/27/20 07/27/20 07/27/20 12:42 12:42 12:43 MCV 89.3 MCH 27.8 MCHC 31.2 RDW 14.5 Plt Count 259 MPV 11.3 Immature Gran % (Auto) 0.3 Neut % (Auto) 66.9 Lymph % (Auto) 22.9 [place] % (Auto) 7.2 Eos % (Auto) 2.3 Baso % (Auto) 0.4 Lymph # (Auto) 2.1 [place] # (Auto) 0.7 Eos # (Auto) 0.2 Baso # (Auto) 0.0 Abs Immat Gran (auto) 0.03 Absolute Neuts (auto) 6.2 Absolute Nucleated RBC 0.000 Nucleated RBC % (auto) 0.0 PT INR APTT VBG pH 7.40 VBG pCO2 62 VBG pO2 43 VBG HCO3 38 VBG O2 Saturation 67.0 VBG Base Excess 11.8 Anion Gap Estim Creat Clear Calc Estimated GFR Random Glucose Calcium Magnesium Total Bilirubin Direct Bilirubin AST ALT Alkaline Phosphatase Ammonia Total Creatine Kinase Troponin I High Sens 10.1 Total Protein Albumin Lipase Ethyl Alcohol COVID-19 (SHANA) COVID-19 Clin Com 07/27/20 07/27/20 07/27/20 12:43 12:43 12:43 MCV MCH MCHC RDW Plt Count MPV Immature Gran % (Auto) Neut % (Auto) Lymph % (Auto) [place] % (Auto) Eos % (Auto) Baso % (Auto) Lymph # (Auto) [place] # (Auto) Eos # (Auto) Baso # (Auto) Abs Immat Gran (auto) Absolute Neuts (auto) Absolute Nucleated RBC Nucleated RBC % (auto) PT 12.9 INR 1.1 APTT 39.5 H VBG pH VBG pCO2 VBG pO2 VBG HCO3 VBG O2 Saturation VBG Base Excess Anion Gap 11 L Estim Creat Clear Calc 52.8 Estimated GFR > 60 Random Glucose 101 D Calcium 9.5 Magnesium 2.0 Total Bilirubin 0.7 Direct Bilirubin 0.2 AST 12 ALT 11 Alkaline Phosphatase 90 Ammonia 23 Total Creatine Kinase 75 Troponin I High Sens Total Protein 6.8 Albumin 3.8 Lipase 13 Ethyl Alcohol COVID-19 (SHANA) COVID-19 [employer] Com 07/27/20 07/27/20 12:43 13:00 MCV MCH MCHC RDW Plt Count MPV Immature Gran % (Auto) Neut % (Auto) Lymph % (Auto) [place] % (Auto) Eos % (Auto) Baso % (Auto) Lymph # (Auto) [place] # (Auto) Eos # (Auto) Baso # (Auto) Abs Immat Gran (auto) Absolute Neuts (auto) Absolute Nucleated RBC Nucleated RBC % (auto) PT INR APTT VBG pH VBG pCO2 VBG pO2 VBG HCO3 VBG O2 Saturation VBG Base Excess Anion Gap Estim Creat Clear Calc Estimated GFR Random Glucose Calcium Magnesium Total Bilirubin Direct Bilirubin AST ALT Alkaline Phosphatase Ammonia Total Creatine Kinase Troponin I High Sens Total Protein Albumin Lipase Ethyl Alcohol < 10 COVID-19 (SHANA) Negative COVID-19 Clin Com See Note Imaging Radiologist's Impressions: Impressions Head CT 07/27/20 11:34 IMPRESSION: 1. Age-indeterminate infarct in the distribution of the left posterior cerebral artery involving the left posterior parietal and occipital lobes. An acute infarct cannot be excluded. MRI is recommended to better assess for acuity. This critical result was discussed with Dr. Weathers at 12:30 PM on 05/26/2021 and it was ascertained that the content and urgency of the report was understood at the time of direct communication. Chest X-Ray 07/27/20 11:35 IMPRESSION: No acute cardiopulmonary process. Brain MRI 07/27/20 12:43 IMPRESSION: There is an acute infarct involving the vascular territory of left posterior cerebral artery and there is some curvilinear magnetic susceptibility artifact presumably representing a manifestation of petechial microhemorrhage. No overt parenchymal hematoma. Numerous chronic small vessel seen changes are also visualized throughout the periventricular white matter and griffin. Abdomen X-Ray 07/27/20 13:11 IMPRESSION: No metallic radiopaque foreign body identified about the abdomen or pelvis. Assessment and Plan (1) Acute CVA (cerebrovascular accident): Problem details: Acute right homonymous hemianopsia secondary to left posterior cerebral distribution infarct probably embolic Status: Acute 79 year old man admitted with acute stroke ? embolic Acute Stroke. MRI completed, obtain echocardiogram, carotid doppler. Head and neck CTA. Neurology to follow. Aspirin and statin. Small hem conversion noted. Hypertension. Hold amlodipine, hydralazine, losartan and metoprolol for now. Diabetes mellitus. Sliding scale, ADA diet. GERD. PPI. DVT prophylaxis mechanical compression boots. Case discussed with Dr. Naa Manning code
[2020-07-27] MEDS: iohexoL 350 MG/ML 100 ML INFUS..BTL IV (20:46)
[2020-07-27 21:03] LABS: Glucose, Whole Blood 48 mg/dL (60-115)
[2020-07-27] MEDS: hydrALAZINE HCl 25 MG TABLET PO (21:30)
[2020-07-27] MEDS: Dextrose 5 % and 0.45 % NaCl 1,000 ML 42 ML IVCONT (21:31)
[2020-07-27] MEDS: Atorvastatin Calcium 80 MG TABLET PO (21:31)
[2020-07-27] MEDS: amLODIPine Besylate 10 MG TABLET PO (21:31)
[2020-07-27 21:45] LABS: Glucose Urine UA NEG (NEG); Leukocyte Esterase Urine NEG (NEG); Nitrite Urine NEG (NEG); PH 7.5 (5.0-8.0); Specific Gravity - Urine 1.015 (1.005-1.025); Urine Blood NEG (NEG); Urine Ketones NEG (NEG); Urine Protein 1+ MG/DL (NEG-TRACE)
[2020-07-27 21:49] LABS: Appearance Urine CLEAR; Color Urine YELLOW
[2020-07-27 21:52] LABS: Bacteria Urine TRACE /LPF; RBC Urine 0-2 /HPF (0); Squamous Epithelial Cell Urine TRACE /LPF; WBC Urine 0-2 /HPF (0-4)
[2020-07-27 22:09] LABS: Amphetamine Screen Urine Not Detected (Not Detect); Barbiturates, Urine Not Detected (Not Detect); Benzodiazepines Screen Urine Not Detected (Not Detect); Cannabinoid Screen Urine Not Detected (Not Detect); Cocaine Screen Urine Not Detected (Not Detect); Opiate Screen Urine POSITIVE (Not Detect); Phencyclidine Screen Urine Not Detected (Not Detect)
[2020-07-27 22:14] LABS: Glucose, Whole Blood 153 mg/dL (60-115)
[2020-07-28] VITALS (11 sets, daily range): BP systolic 119–172; BP diastolic 50–97; PULSE 60–84; RESP 15–20; TEMP 36.6–37; O2SAT 86–97
[2020-07-28 00:51] LABS: Glucose, Whole Blood 121 mg/dL (60-115)
[2020-07-28 06:15] LABS: MANUAL DIFF FLAG NO
--- NOTE | 2020-07-28 06:33 | PC.NURSE ---
Patient refused his 0630 medicated because he was sleeping. Patient's iv has been alarming most of the shift because patient keeps bending his arm despite being reminded numerous times to keep arm straight.
[2020-07-28 06:53] LABS: Anion Gap 12 (12-20); Blood Urea Nitrogen 13 mg/dL (9-16); Calcium 8.9 mg/dL (8.4-10.2); Carbon Dioxide 32 mmol/L (22-29); Chloride 99 mmol/L (96-108); Cholesterol 249 mg/dL; Creatinine Clr Calc Pharmacy 68.1; Estimated Glomerular Filt Rate > 60; Glucose Random 135 mg/dL (60-115); HDL Cholesterol 32 mg/dL; LDL Cholesterol Calculated 167 mg/dl; Potassium 3.6 mmol/L (3.3-5.1); Sodium 139 mmol/L (135-145); Triglycerides 252 mg/dL
[2020-07-28 07:01] LABS: Basophils Absolute Auto 0.1 X10*3/uL (0.0-0.2); Basophils Percent Auto 0.5 % (0-2); Eosinophils Absolute Auto 0.3 X10*3/uL (0.0-0.4); Eosinophils Percent Auto 2.7 % (0-4); Hemoglobin 11.6 g/dl (14.0-18.0); Imm Gran Abs Auto 0.04 X10*3/uL (0.00-0.03); Imm Gran Pct Auto 0.4 % (0.0-0.4); Lymphocytes Absolute Auto 2.6 X10*3/uL (1.2-4.9); Lymphocytes Percent Auto 25.8 % (20-40); Mean Corpuscular HGB Conc 31.4 g/dl (31.0-36.0); Mean Corpuscular Hemoglobin 27.8 pg (27.0-33.0); Mean Corpuscular Volume 88.5 fL (80-98); Mean Platelet Volume 11.5 fL (9.4-12.4); Monocytes Absolute Auto 0.7 X10*3/uL (0.1-1.2); Monocytes Percent Auto 7.3 % (2-11); Neutrophils Absolute Auto 6.3 X10*3/uL (2.0-8.3); Neutrophils Percent Auto 63.3 % (45-73); Platelet Count 270 X10*3/uL (160-400); Red Blood Count 4.18 X10*6/uL (4.60-5.80); Red Cell Distribution Width 14.5 % (11.0-16.0); White Blood Count 9.9 X10*3/uL (4.8-10.8)
[2020-07-28 09:33] LABS: Glucose, Whole Blood 212 mg/dL (60-115)
[2020-07-28] MEDS: Metoprolol Succinate ER 100 MG TAB.ER.24H 150 MG PO (09:33)
[2020-07-28] MEDS: Cholecalciferol (Vitamin D3) 25 MCG TABLET PO (09:33)
[2020-07-28] MEDS: hydrALAZINE HCl 25 MG TABLET PO ×2 (09:35→20:20)
[2020-07-28] MEDS: Aspirin Enteric Coated 81 MG TABLET.DR PO (09:35)
[2020-07-28] MEDS: Furosemide 40 MG TABLET PO (09:36)
--- NOTE | 2020-07-28 10:11 | MHC.CM.PN ---
Attempted to meet with patient in regards to discharge planning. Patient currently sleeping. Occupational therapy eval is complete. Rehab is being recommended. Physical therapy eval is pending. Spoke with patient's step-daughter, Ashely via telephone at [phone]. Patient lives with Ashely's mom, Carolyne; ambulates independently and has daily nursing visits. Ashely is not sure of the agency's name. PCP verified. HCP is not on file. Ashely doesn't believe patient ever completed one. IMM explained and sent via certified mail. Rehab options discussed. [facility] is first choice. Referral sent via [employer] [employer]. Continue to [facility] for d/c needs.
--- NOTE | 2020-07-28 11:22 | PC.NURSE ---
pt ambulates in room with unsteady gait, he also needs frequent reminders to use call light for help, pt has been shouting for help. He is ptherwise calm and cooperative.
--- NOTE | 2020-07-28 11:59 | HO.PM.IMPN ---
Subjective Subjective Date of Service: 07/28/20 Interval History: no complaints ENT Ears, Nose, Mouth, and Throat: Reports Normal hearing present Respiratory Respiratory: Reports no additional respiratory complaints Gastrointestinal Gastrointestinal: Reports no additional gastrointestinal complaints Genitourinary Genitourinary: Reports no additional male genitourinary complaints Neurologic Neurologic: Reports Normal hearing present Physical Exam Vital Signs: Vital Signs: Last Vital Signs Temp 98.4 F 07/27/20 20:56 Pulse 67 07/28/20 09:35 Resp 16 07/28/20 06:00 BP 172/75 H 07/28/20 09:35 Pulse Ox 97 07/28/20 06:00 Body Mass Index 36.0 Const: Orientation/consciousness: oriented to person, oriented to place and oriented to time Eyes: Pupils: Equal, round and reactive pupils present Neck: Neck: Yes no meningeal signs Chest: Chest palpation & inspection: normal inspection of the chest Resp: Effort & Inspection: normal respiratory effort Auscultation: clear to auscultation bilaterally Cardio: Rate: regular rate Rhythm: regular rhythm Heart sounds: S1 normal heart sound present and S2 normal heart sound present Peripheral pulses: Peripheral pulses 2+ throughout GI: Inspection: Yes normal to inspection Percussion: Yes normal to percussion Auscultation: normal bowel sounds Rectal Exam - Male: Yes deferred Neuro: General: oriented to person, oriented to place, oriented to time, gait normal, tone normal, moves all extremities, Normal light touch and pain sensation, no meningeal signs, no focal motor deficits, normal sensation to monofilament and deep tendon reflexes 2+ bilaterally Cranial nerves: Yes Equal, round and reactive pupils present, Yes Bilaterally intact EOM present, Yes Nystagmus not present, Yes Normal facial strength present, Yes Midline tongue present, Yes Normal gag reflex present, Yes Symmetric palate elevation present, Yes Normal hearing present and Yes Ability to bilaterally rotate head present Speech: Other speech findings present (Neuro) Gait exam (Neuro): Normal gait present Motor exam (neuro): 5/5 motor strength present throughout, Pronator motor function not present, no tremor noted, no asterixis, Motor fasciculations not present, Normal motor muscle tone present throughout and Motor abnormalities not present Sensory Exam: Bilaterally intact graphesthesia Deep tendon reflexes (DTR's): Right triceps reflex intensity grade: 2+, Left triceps reflex intensity grade: 2+, Rt Biceps (C5, C6): 2+, Left biceps reflex intensity grade: 2+, Right brachioradialis reflex intensity grade: 2+, Left brachioradialis reflex intensity grade: 2+, Right patellar reflex intensity grade: 2+, Left patellar reflex intensity grade: 2+, Right ankle reflex intensity grade: 2+ and Left ankle reflex intensity grade: 2+ Plantar Reflex Responses: downgoing: right, left and bilateral Coordination: [id number] test normal, tqpo-[id number] test normal, tandem gait normal and Romberg test negative Pupils: Normal pupillary reactivity/response: bilateral Objective Data Current Medications Generic Name Dose Route Start Last Admin Trade Name Freq PRN Reason Stop Dose Admin Acetaminophen 650 mg 07/27/20 17:07 Acetaminophen 325 Mg Tablet PO Q6H PRN Pain, Mild (Pain Scale 1-3) Aspirin 81 mg 07/28/20 09:00 07/28/20 09:35 Aspirin Enteric Coated 81 Mg Tablet. PO 81 mg DAILY EBER Administration Atorvastatin Calcium 80 mg 07/27/20 21:00 07/27/20 21:31 Atorvastatin Calcium 80 Mg Tablet PO 80 mg BEDTIME [facility] Administration Furosemide 40 mg 07/28/20 09:00 07/28/20 09:36 Furosemide 40 Mg Tablet PO 40 mg DAILY [facility] Administration Protocol Glipizide 10 mg 07/28/20 09:00 07/28/20 09:48 Glipizide 10 Mg Tablet PO Not Given DAILY [facility] Hydralazine HCl 25 mg 07/27/20 21:00 07/28/20 09:35 Hydralazine Hcl 25 Mg Tablet PO 25 mg BID [facility] Administration Protocol Insulin Human Lispro 0 unit 07/27/20 21:00 07/28/20 09:30 Insulin Lispro 100 Unit/Ml 3 Ml Vial SUBCUT Not Given QIDACHS [facility] Protocol Metoprolol Succinate 50 mg 07/29/20 09:00 Metoprolol Succinate Er 50 Mg Tab.Er.24h PO DAILY [facility] Protocol Metoprolol Succinate 100 mg 07/29/20 09:00 Metoprolol Succinate Er 100 Mg Tab.Er.24h PO DAILY [facility] Protocol Omeprazole 20 mg 07/28/20 06:30 07/28/20 06:29 Omeprazole 20 Mg Capsule. PO Not Given DAILY@0630 [facility] Ondansetron HCl 4 mg 07/27/20 17:07 Ondansetron Hcl 4 Mg/2 Ml Vial IVPUSH Q8H PRN Nausea and Vomiting Pharmacy Consult 1 each 07/27/20 11:34 Consult Rx Perform Med Rec MISCELLANE ONCE PRN Consult order Sodium Chloride 3 ml 07/28/20 00:00 07/28/20 09:36 0.9 % Sodium Chloride Flush 3 Ml Syringe IVFLUSH Not Given QSHIFT EBER Vitamin D 25 mcg 07/28/20 09:00 07/28/20 09:33 Cholecalciferol (Vitamin D3) 25 Mcg Tablet PO 25 mcg DAILY EBER Administration Labs CBC & Chem 7: 07/28/20 05:38 07/28/20 05:38 Assessment and Plan (1) Acute CVA (cerebrovascular accident): Problem details: Acute right homonymous hemianopsia secondary to left posterior cerebral distribution infarct probably embolic Status: Acute Assessment and Plan: 79 year old man admitted with acute stroke Acute Stroke follow up echo asa, statin rehab permissive htn Hypertension. Hold amlodipine, hydralazine, losartan and metoprolol for now. Diabetes mellitus. Sliding scale, ADA diet. GERD. PPI.
[2020-07-28 12:12] LABS: Glucose, Whole Blood 205 mg/dL (60-115)
[2020-07-28 15:59] LABS: Glucose, Whole Blood 277 mg/dL (60-115)
--- NOTE | 2020-07-28 17:07 | CA_ITS ---
Transthoracic Echocardiogram Patient (Last, First, Middle): Jerome Ro, Gender: Male Date of : 1940 Age: 79 Procedure Date: 07/28/2020 Procedure Type: Transthoracic Echocardiogram Location: ER Height: 162.56 cm Weight: 95.26 kg BSA: 2.00 m2 Heart Rate: bpm BP: 172 / 75 mmHg System Technologist: KELVIN Referring MD: Nisha Conner NP Symptoms: STROKE Study Quality: Fair Conclusions: - Normal left ventricular size, thickness, systolic function, and wall motion. - Elevated filling pressures. - Normal right ventricular cavity size and systolic function. - The left atrium is likely dilated. There is no evidence of interatrial shunt by color Doppler. - Mildly elevated right atrial pressure. Mild pulmonary hypertension is present. - There is mild dilatation of the ascending aorta. Findings Left Ventricle Normal left ventricular size, thickness, systolic function, and wall motion. The visually estimated ejection fraction is between 55-60%. Abnormal diastolic function is noted. Spectral Doppler is indicative of an impaired relaxation filling pattern. Elevated filling pressures. Right Ventricle Normal right ventricular cavity size and systolic function. Atria The left atrium is likely dilated. There is no evidence of interatrial shunt by color Doppler. Aortic Valve There is a normal trileaflet aortic valve. There is mild calcification of the aortic valve. There is mild thickening of the aortic valve. There is no aortic valve stenosis. There is no aortic valve regurgitation. Mitral Valve Normal mitral valve structure and function. There is no mitral valve regurgitation. There is no mitral valve stenosis. Pulmonic Valve Normal pulmonic valve structure and function. There is trace pulmonic valve regurgitation. Tricuspid Valve Normal tricuspid valve structure and function. There is trace tricuspid valve regurgitation. Mildly elevated right atrial pressure. Mild pulmonary hypertension is present. Great Vessels The pulmonary artery was not well visualized. There is mild dilatation of the ascending aorta. Venous The inferior vena cava is dilated and collapses greater than 50% with inspiration. Pericardium/Pleural There is no evidence of pericardial effusion. Prior Study Comparison No prior study available for comparison. Measurements 2D Linear Measurements IVSd: 0.94 0.6-0.9/0.6-1.0 cm LVIDd: 4.57 3.9-5.3/4.2-5.9 cm LVIDd Index: 2.29 2.4-3.2/2.2-3.1 cm/m2 LVIDs: 2.83 2.0-3.6 cm LVPWd: 0.96 0.7-1.1 cm Ao Root: 3.30 2.1-3.5 cm LA Diam: 4.00 2.7-3.8/3.0-4.0 cm LAIDs Index: 2.00 1.5-2.3 cm/m2 LV Mass: 181.89 67-162/88-224 g LV Mass Index: 90.94 43-95/49-115 g/m2 LVOT Diam: 2.00 3.0+(-)1.3 cm Mitral Valve MV Pk E: 1.00 MV PK A: 1.22 MV Decel Time: 332.00 E/A: 0.80 E'Lateral: 6.74 E'Medial: 6.31 E/E' Med: 15.80 E/E' Lat: 14.80 PHT: 97.00 MVA PHT: 2.27 Decel [place]: 3.02 Aortic Valve AoV Pk Charli: 1.55 AoV Mn Charli: 1.00 AoV VTI: 0.33 AoV Pk Grad: 10.00 Aov Mn Grad: 5.00 PIERO Cont.VTI: 2.71 LVOT LVOT Pk Charli: 1.26 LVOT Mn Charli: 0.80 LVOT VTI: 0.28 LVOT Pk Grad: 6.00 LVOT Mn Grad: 3.00 LVOT Diam: 2.00 LVOT Area: 3.14 Diastolic Function MV Pk E: 1.00 MV Pk A: 1.22 E/A: 0.80 E'Medial: 6.31 E/E' Med: 15.80 E' Laterial: 6.74 E/E' Lat: 14.80 Tricuspid Valve TR Pk Charli: 2.66 TR Pk Grad: 28.00 RA Press: 8.00 RVSP: 36.00 Great Vessels Aorta Ao Root-2D: 3.30 2.0-3.7 cm Ao Asc: 3.60 2.1-3.4 cm Updated in Other Vendor System with Status of Final Mao Reddy MD electronically signed on 07/29/2020 12:59:00 PM with status of Final
[2020-07-28] MEDS: Insulin Lispro 100 UNIT/ML 3 ML VIAL SUBCUT ×2 (17:34→21:44)
[2020-07-28] MEDS: 0.9 % Sodium Chloride Flush 3 ML SYRINGE IVFLUSH (17:34)
[2020-07-28] MEDS: Atorvastatin Calcium 80 MG TABLET PO (20:28)
[2020-07-28 21:43] LABS: Glucose, Whole Blood 211 mg/dL (60-115)
[2020-07-29] VITALS (7 sets, daily range): BP systolic 130–168; BP diastolic 52–65; PULSE 54–66; RESP 17–24; TEMP 36.4–37.1; O2SAT 90–95
[2020-07-29] MEDS: 0.9 % Sodium Chloride Flush 3 ML SYRINGE IVFLUSH ×4 (00:41→22:23)
[2020-07-29] MEDS: Omeprazole 20 MG CAPSULE.DR PO (06:41)
[2020-07-29 07:09] LABS: Glucose, Whole Blood 182 mg/dL (60-115)
[2020-07-29] MEDS: glipiZIDE 10 MG TABLET PO (08:16)
[2020-07-29] MEDS: Aspirin Enteric Coated 81 MG TABLET.DR PO (08:16)
[2020-07-29] MEDS: Insulin Lispro 100 UNIT/ML 3 ML VIAL SUBCUT ×4 (08:16→22:22)
[2020-07-29] MEDS: Metoprolol Succinate ER 50 MG TAB.ER.24H PO (08:16)
[2020-07-29] MEDS: hydrALAZINE HCl 25 MG TABLET PO ×2 (08:17→22:21)
[2020-07-29] MEDS: Metoprolol Succinate ER 100 MG TAB.ER.24H PO (08:17)
[2020-07-29] MEDS: Furosemide 40 MG TABLET PO (08:17)
[2020-07-29] MEDS: Cholecalciferol (Vitamin D3) 25 MCG TABLET PO (08:17)
[2020-07-29] MEDS: Acetaminophen 325 MG TABLET 650 MG PO (08:18)
--- NOTE | 2020-07-29 10:41 | P.PNIM_ITS ---
Subjective Subjective Date of Service: 07/29/20 Interval History: diarrhea Cardiovascular Cardiovascular: Reports no additional cardiovascular complaints Respiratory Respiratory: Reports no additional respiratory complaints Physical Exam Vital Signs: Vital Signs: Last Vital Signs Temp 98.0 F 07/29/20 07:29 Pulse 62 07/29/20 07:29 Resp 20 07/29/20 07:29 BP 144/61 H 07/29/20 07:29 Pulse Ox 93 07/29/20 07:29 Body Mass Index 36.0 General: AO X 3, no acute distress Resp: CTA bilateral CVS: S1,S2,RRR GI: soft, non tender, non distended Psych: appropriate affect Objective Data Current Medications Generic Name Dose Route Start Last Admin Trade Name Freq PRN Reason Stop Dose Admin Acetaminophen 650 mg 07/27/20 17:07 07/29/20 08:18 Acetaminophen 325 Mg Tablet PO 650 mg Q6H PRN Administration Pain, Mild (Pain Scale 1-3) Aspirin 81 mg 07/28/20 09:00 07/29/20 08:16 Aspirin Enteric Coated 81 Mg Tablet.Dr PO 81 mg DAILY EBER Administration Atorvastatin Calcium 80 mg 07/27/20 21:00 07/28/20 20:28 Atorvastatin Calcium 80 Mg Tablet PO 80 mg BEDTIME [facility] Administration Furosemide 40 mg 07/28/20 09:00 07/29/20 08:17 Furosemide 40 Mg Tablet PO 40 mg DAILY EBER Administration Protocol Glipizide 10 mg 07/28/20 09:00 07/29/20 08:16 Glipizide 10 Mg Tablet PO 10 mg DAILY EBER Administration Hydralazine HCl 25 mg 07/27/20 21:00 07/29/20 08:17 Hydralazine Hcl 25 Mg Tablet PO 25 mg BID EBER Administration Protocol Insulin Human Lispro 0 unit 07/27/20 21:00 07/29/20 08:16 Insulin Lispro 100 Unit/Ml 3 Ml Vial SUBCUT 2 unit QIDACHS [facility] Administration Protocol Metoprolol Succinate 50 mg 07/29/20 09:00 07/29/20 08:16 Metoprolol Succinate Er 50 Mg Tab.Er.24h PO 50 mg DAILY EBER Administration Protocol Metoprolol Succinate 100 mg 07/29/20 09:00 07/29/20 08:17 Metoprolol Succinate Er 100 Mg Tab.Er.24h PO 100 mg DAILY EBER Administration Protocol Omeprazole 20 mg 07/28/20 06:30 07/29/20 06:41 Omeprazole 20 Mg Capsule. PO 20 mg DAILY@0630 E[facility] Administration Ondansetron HCl 4 mg 07/27/20 17:07 Ondansetron Hcl 4 Mg/2 Ml Vial IVPUSH Q8H PRN Nausea and Vomiting Pharmacy Consult 1 each 07/27/20 11:34 Consult Rx Perform Med Rec MISCELLANE ONCE PRN Consult order Sodium Chloride 3 ml 07/28/20 00:00 07/29/20 08:17 0.9 % Sodium Chloride Flush 3 Ml Syringe IVFLUSH 3 ml QSHIFT EBER Administration Vitamin D 25 mcg 07/28/20 09:00 07/29/20 08:17 Cholecalciferol (Vitamin D3) 25 Mcg Tablet PO 25 mcg DAILY EBER Administration Labs CBC & Chem 7: 07/28/20 05:38 07/28/20 05:38 Microbiology Microbiology Results: Microbiology 07/27/20 13:00 Blood - Venous Blood Culture - Preliminary No growth after 24 hours. 07/27/20 12:42 Blood - Venous Blood Culture - Preliminary No growth after 24 hours. Assessment and Plan (1) Acute CVA (cerebrovascular accident): Status: Acute Assessment and Plan: 79 year old man admitted with acute stroke Acute Stroke follow up echo asa, statin rehab permissive htn diarrhea monitor if continues - check cdif Hypertension. Hold amlodipine, hydralazine, losartan and metoprolol for now. Diabetes mellitus. Sliding scale, ADA diet. GERD. PPI.
[2020-07-29 11:25] LABS: Glucose, Whole Blood 321 mg/dL (60-115)
[2020-07-29 16:08] LABS: Glucose, Whole Blood 221 mg/dL (60-115)
[2020-07-29 20:53] LABS: Glucose, Whole Blood 247 mg/dL (60-115)
[2020-07-29] MEDS: Atorvastatin Calcium 80 MG TABLET PO (22:22)
[2020-07-30 04:20] VITALS: BP 138/63; PULSE 69; RESP 12; TEMP 36.8; O2SAT 91
[2020-07-30] MEDS: Omeprazole 20 MG CAPSULE.DR PO (06:19)
[2020-07-30 07:13] LABS: Glucose, Whole Blood 262 mg/dL (60-115)
[2020-07-30 08:00] VITALS: BP 179/71; PULSE 91; RESP 18; TEMP 36.8; O2SAT 91
[2020-07-30] MEDS: Insulin Lispro 100 UNIT/ML 3 ML VIAL SUBCUT ×3 (08:37→17:04)
[2020-07-30] MEDS: 0.9 % Sodium Chloride Flush 3 ML SYRINGE IVFLUSH (08:37)
[2020-07-30 08:42] VITALS: BP 179/71; PULSE 91
[2020-07-30] MEDS: glipiZIDE 10 MG TABLET PO (08:42)
[2020-07-30] MEDS: Aspirin Enteric Coated 81 MG TABLET.DR PO (08:42)
[2020-07-30] MEDS: Metoprolol Succinate ER 100 MG TAB.ER.24H PO (08:42)
[2020-07-30] MEDS: hydrALAZINE HCl 25 MG TABLET PO (08:42)
[2020-07-30] MEDS: Metoprolol Succinate ER 50 MG TAB.ER.24H PO (08:42)
[2020-07-30] MEDS: Cholecalciferol (Vitamin D3) 25 MCG TABLET PO (08:42)
[2020-07-30] MEDS: Furosemide 40 MG TABLET PO (08:42)
--- NOTE | 2020-07-30 10:48 | P.DS_ITS ---
DS: Providers Provider Date of Service: 07/30/20 Date of admission: 07/27/20 17:07 Primary care physician: Gonzales Ross MD Consults: 07/27/20 17:07 Consult to Neurology Routine Consulting Provider: [facility] Reason for consultation: STROKE Has provider been notified: No DS: Diagnosis Discharge Diagnosis (1) Acute CVA (cerebrovascular accident): Status: Acute DS: Medications Discharge Medications Home Medications: Home Medications Medication Instructions Recorded Confirmed amlodipine 10 mg PO BEDTIME 07/27/20 07/27/20 aspirin 81 mg PO DAILY 07/27/20 07/27/20 atorvastatin 80 mg PO BEDTIME 07/27/20 07/27/20 cholecalciferol (vitamin D3) 25 mcg PO DAILY 07/27/20 07/27/20 furosemide 40 mg PO DAILY 07/27/20 07/27/20 glimepiride 4 mg PO DAILY 07/27/20 07/27/20 hydralazine 25 mg PO BID 07/27/20 07/27/20 insulin asp prt-insulin aspart 37 unit SUBCUT BEDTIME 07/27/20 07/27/20 [Novolog Mix 70-30FlexPen U-100] insulin asp prt-insulin aspart 48 unit SUBCUT DAILY 07/27/20 07/27/20 [Novolog Mix 70-30FlexPen U-100] losartan 100 mg PO DAILY 07/27/20 07/27/20 metoprolol succinate 150 mg PO DAILY 07/27/20 07/27/20 omeprazole 20 mg PO DAILY@0630 07/27/20 07/27/20 DS: Summary Hospital Course Hospital Course: . He was seen by neurology recommended aspirin statin. Echocardiogram was unremarkable. Patient was seen by physical therapy recommended rehab. he had no events on tele Time Spent with Patient Time attestation: Total time spent providing and/or coordinating discharge services: Discharge coordination time: Greater than 30 minutes Quality: Stroke Pt Provided Written Stroke Discharge Instructions: Patient given written information Physical Exam Vital Signs: Vital Signs: Last Vital Signs Temp 98.2 F 07/30/20 08:00 Pulse 91 07/30/20 08:42 Resp 18 07/30/20 08:00 BP 179/71 H 07/30/20 08:42 Pulse Ox 91 L 07/30/20 08:00 Body Mass Index 36.0 General: Alert, no acute distress Resp: CTA bilateral CVS: S1,S2,RRR GI: soft, non tender, non distended General: oriented to person, oriented to place, oriented to time, gait normal, tone normal, moves all extremities, Normal light touch and pain sensation, no meningeal signs, no focal motor deficits, normal sensation to monofilament and deep tendon reflexes 2+ bilaterally Cranial nerves: Yes Equal, round and reactive pupils present, Yes Bilaterally intact EOM present, Yes Nystagmus not present, Yes Normal facial strength present, Yes Midline tongue present, Yes Normal gag reflex present, Yes Symmetric palate elevation present, Yes Normal hearing present and Yes Ability to bilaterally rotate head present Speech: Other speech findings present (Neuro) Gait exam (Neuro): Normal gait present Motor exam (neuro): 5/5 motor strength present throughout, Pronator motor function not present, no tremor noted, no asterixis, Motor fasciculations not present, Normal motor muscle tone present throughout and Motor abnormalities not present Sensory Exam: Bilaterally intact graphesthesia Deep tendon reflexes (DTR's): Right triceps reflex intensity grade: 2+, Left triceps reflex intensity grade: 2+, Rt Biceps (C5, C6): 2+, Left biceps reflex intensity grade: 2+, Right brachioradialis reflex intensity grade: 2+, Left brachioradialis reflex intensity grade: 2+, Right patellar reflex intensity grade: 2+, Left patellar reflex intensity grade: 2+, Right ankle reflex intensity grade: 2+ and Left ankle reflex intensity grade: 2+ Plantar Reflex Responses: downgoing: right, left and bilateral Coordination: [id number] test normal, [id number] test normal, tandem gait normal and Romberg test negative Pupils: Normal pupillary reactivity/response: bilateral Psych: appropriate affect DS: Data Data Completed and Pending Labs on day of discharge: Laboratory Results - last 24 hr 07/29/20 07/29/20 07/29/20 11:21 16:04 20:45 POC Glucose 321 H 221 H 247 H 07/30/20 07:10 POC Glucose 262 H Preliminary micro results at discharge 07/27/20 13:00 Blood Culture - Preliminary Blood - Venous No growth after 48 hours. 07/27/20 12:42 Blood Culture - Preliminary Blood - Venous No growth after 48 hours. Discharge Plan Discharge Patient Disposition: [facility] Referrals: Gonzales Ross MD [Primary Care Provider] - Discharge Medications: Continued furosemide 40 mg Tablet 40 mg PO DAILY RF: 0 atorvastatin 80 mg Tablet 80 mg PO BEDTIME RF: 0 metoprolol succinate 100 mg Tablet Extended Release 24 Hr 150 mg PO DAILY RF: 0 hydralazine 25 mg Tablet 25 mg PO BID RF: 0 aspirin 81 mg Tablet,Delayed Release (Dr/Ec) 81 mg PO DAILY RF: 0 amlodipine 10 mg Tablet 10 mg PO BEDTIME RF: 0 glimepiride 4 mg Tablet 4 mg PO DAILY RF: 0 omeprazole 20 mg Capsule,Delayed Release(Dr/Ec) 20 mg PO DAILY@0630 RF: 0 losartan 100 mg Tablet 100 mg PO DAILY RF: 0 insulin asp prt-insulin aspart [Novolog Mix 70-30FlexPen U-100] 100 unit/mL (70-30) Insulin Pen 48 unit SUBCUT DAILY RF: 0 insulin asp prt-insulin aspart [Novolog Mix 70-30FlexPen U-100] 100 unit/mL (70-30) Insulin Pen 37 unit SUBCUT BEDTIME RF: 0 cholecalciferol (vitamin D3) 25 mcg (1,000 unit) Tablet 25 mcg PO DAILY RF: 0 Discharge Orders: Discharge Order (Routine); Ordered 07/30/20 Ordered By: Xander Jacome Activity on Discharge: As tolerated Stand Alone Forms: Patient Portal Discharge page Care Plan Goals: prevent strokes Health Concerns: stroke Plan of Treatment: rehab, asa, statin
--- NOTE | 2020-07-30 11:55 | P.PNIM_ITS ---
Subjective Subjective Date of Service: 07/30/20 Interval History: no complaints, diarrhea resolved Cardiovascular Cardiovascular: Reports no additional cardiovascular complaints Respiratory Respiratory: Reports no additional respiratory complaints Physical Exam Vital Signs: Vital Signs: Last Vital Signs Temp 98.2 F 07/30/20 08:00 Pulse 91 07/30/20 08:42 Resp 18 07/30/20 08:00 BP 179/71 H 07/30/20 08:42 Pulse Ox 91 L 07/30/20 08:00 Body Mass Index 36.0 General: AO X 3, no acute distress Resp: CTA bilateral CVS: S1,S2,RRR GI: soft, non tender, non distended Psych: appropriate affect Objective Data Current Medications Generic Name Dose Route Start Last Admin Trade Name Freq PRN Reason Stop Dose Admin Acetaminophen 650 mg 07/27/20 17:07 07/29/20 08:18 Acetaminophen 325 Mg Tablet PO 650 mg Q6H PRN Administration Pain, Mild (Pain Scale 1-3) Aspirin 81 mg 07/28/20 09:00 07/30/20 08:42 Aspirin Enteric Coated 81 Mg Tablet.Dr PO 81 mg DAILY EBER Administration Atorvastatin Calcium 80 mg 07/27/20 21:00 07/29/20 22:22 Atorvastatin Calcium 80 Mg Tablet PO 80 mg BEDTIME EBER Administration Furosemide 40 mg 07/28/20 09:00 07/30/20 08:42 Furosemide 40 Mg Tablet PO 40 mg DAILY [facility] Administration Protocol Glipizide 10 mg 07/28/20 09:00 07/30/20 08:42 Glipizide 10 Mg Tablet PO 10 mg DAILY EBER Administration Hydralazine HCl 25 mg 07/27/20 21:00 07/30/20 08:42 Hydralazine Hcl 25 Mg Tablet PO 25 mg BID EBER Administration Protocol Insulin Human Lispro 0 unit 07/27/20 21:00 07/30/20 08:37 Insulin Lispro 100 Unit/Ml 3 Ml Vial SUBCUT 6 unit QIDACHS [facility] Administration Protocol Metoprolol Succinate 50 mg 07/29/20 09:00 07/30/20 08:42 Metoprolol Succinate Er 50 Mg Tab.Er.24h PO 50 mg DAILY [facility] Administration Protocol Metoprolol Succinate 100 mg 07/29/20 09:00 07/30/20 08:42 Metoprolol Succinate Er 100 Mg Tab.Er.24h PO 100 mg DAILY [facility] Administration Protocol Omeprazole 20 mg 07/28/20 06:30 07/30/20 06:19 Omeprazole 20 Mg Capsule. PO 20 mg DAILY@0630 [facility] Administration Ondansetron HCl 4 mg 07/27/20 17:07 Ondansetron Hcl 4 Mg/2 Ml Vial IVPUSH Q8H PRN Nausea and Vomiting Pharmacy Consult 1 each 07/27/20 11:34 Consult Rx Perform Med Rec MISCELLANE ONCE PRN Consult order Sodium Chloride 3 ml 07/28/20 00:00 07/30/20 08:37 0.9 % Sodium Chloride Flush 3 Ml Syringe IVFLUSH 3 ml QSHIFT [facility] Administration Vitamin D 25 mcg 07/28/20 09:00 07/30/20 08:42 Cholecalciferol (Vitamin D3) 25 Mcg Tablet PO 25 mcg DAILY EBER Administration Labs CBC & Chem 7: 07/28/20 05:38 07/28/20 05:38 Microbiology Microbiology Results: Microbiology 07/27/20 13:00 Blood - Venous Blood Culture - Preliminary No growth after 48 hours. 07/27/20 12:42 Blood - Venous Blood Culture - Preliminary No growth after 48 hours. Assessment and Plan (1) Acute CVA (cerebrovascular accident): Status: Acute Assessment and Plan: 79 year old man admitted with acute stroke Acute Stroke unremarkable echo asa, statin rehab awaiting placement diarrhea monitor if continues - check cdif Hypertension. Hold amlodipine, hydralazine, losartan and metoprolol for now. resumed on dc Diabetes mellitus. Sliding scale, ADA diet. GERD. PPI.
[2020-07-30 12:00] VITALS: BP 155/63; PULSE 70; RESP 22; TEMP 36.6; O2SAT 93
[2020-07-30] MEDS: Acetaminophen 325 MG TABLET 650 MG PO (12:09)
[2020-07-30 12:13] LABS: Glucose, Whole Blood 285 mg/dL (60-115)
[2020-07-30 13:36] LABS: COVID-19 Test Negative (Negative)
[2020-07-30 16:00] VITALS: BP 161/60; PULSE 63; RESP 20; TEMP 36.6; O2SAT 93
[2020-07-30 16:17] LABS: Glucose, Whole Blood 360 mg/dL (60-115)
[2020-07-30 16:17] LABS: Glucose, Whole Blood 409 mg/dL (60-115)
== END 2020-07-30 17:52 | DRG 66 ==
LOC: HO.ED 15:04 → HO.EDOVER 17:29 → HO.ICU 07-28 10:41
PROVIDERS: Nurse Practitioner Acute Care; Admitting Provider Internal Medicine; Emergency Provider Emergency Medicine; PCP Internal Medicine; Visit Provider Internal Medicine
DX: I63.432 Cerebral infarction due to embolism of left posterior cerebral artery (principal); E78.5 Hyperlipidemia, unspecified; R29.702 NIHSS score 2; I10 Essential (primary) hypertension; H53.461 Homonymous bilateral field defects, right side; K21.9 Gastro-esophageal reflux disease without esophagitis; E11.9 Type 2 diabetes mellitus without complications; Z20.822 Contact with and (suspected) exposure to COVID-19; Z79.4 Long term (current) use of insulin; Z79.82 Long term (current) use of aspirin; Z79.899 Other long term (current) drug therapy
CPT/HCPCS: 36415; 70450; 70496; 70498; 70551; 71045; 74018; 80048; 80061; 80076; 80307; 80320; 81001; 82140; 82550; 82803; 82947; 83690; 83735; 84484; 85025; 85610; 85730; 87040; 87635; 93005; 93306; 93880; 97162; 97165; 99285; Q9967

== ENCOUNTER 2020-08-31 12:34 | Emergency (ER) | payer MEDICARE, MEDICAID, SELFPAY ==
[2020-08-31] VITALS (9 sets, daily range): BP systolic 123–171; BP diastolic 48–68; PULSE 58–73; RESP 13–20; TEMP 36.8–37; O2SAT 94–98; BMI 35.2; BMI 34.8
--- NOTE | ~2020-08-31 | XR_ITS ---
EXAMINATION: XR LUMBAR SPINE XR CHEST XR KNEE, BILATERAL CLINICAL INFORMATION: Fall. COMPARISON: Chest 07/27/2020 TECHNIQUE: Chest 2 views. 4 views each knee. 3 views lumbar spine. FINDINGS: LUMBAR SPINE: There is normal lumbar lordosis. The vertebral heights and alignment is normal. There is loss of disc height virtually at every disc level. There is mild ventral spondylosis. There is minimal dextroscoliosis could be positional. No acute fracture or lytic process seen. RIGHT KNEE: There is mild loss of medial and patellofemoral compartment joint space with mild suprapatellar joint effusion. No bony erosive changes or loose body seen. No acute fracture or subluxation. LEFT KNEE: There is minimal loss of medial compartment joint space. The lateral and the patellofemoral compartment joint space is normal. There is no abnormal joint effusion. No bony erosive changes seen. There is a small anterior enthesophyte along the patella. XR/XR knee LT 4V IMPRESSION: Small enthesophyte along the anterior patellar left knee. 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 Mild right knee suprapatellar joint effusion. Unremarkable lumbar spine exam.
--- NOTE | ~2020-08-31 | CT_ITS ---
EXAMINATION: CT HEAD/BRAIN WITHOUT CONTRAST CLINICAL INFORMATION: Fall with recent CVA COMPARISON: July 27, 2020 TECHNIQUE: CT scanning from base of skull to vertex performed without IV contrast administration. DLP: 718.77 mGy-cm. FINDINGS: There is prominence of ventricles, sulci, and cisterns consistent with generalized atrophy. There is a large amount of periventricular white matter low density consistent with microangiopathy. 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 No blood products are seen within the ventricular system and no definite subarachnoid blood is evident. Paranasal sinuses and mastoid air cells unremarkable. 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 EXAMINATION: CT OF THE CERVICAL SPINE CLINICAL INFORMATION: [facility] [place] COMPARISON: None. TECHNIQUE: Thin helical images with sagittal and coronal reformats. DOSE: DLP 598.92 mGy-cm. FINDINGS: No abnormal prevertebral soft tissue swelling is seen. No acute cervical spine fracture is noted. There is osteopenia visualized bones. There is degenerative change with disc space narrowing from C2 through C7 with marginal spurring. There is some anterior neural foraminal compartment related from spurring of the joints of Luschka bilaterally from C3-C4 through C6-C7. Temporomandibular joints and pterygoid plates intact. Mastoid air cells and visualized paranasal sinuses are well aerated. Bilateral carotid artery calcifications seen. IMPRESSION: No acute cervical spine fracture. Diffuse cervical spondylosis C3 to through C7 as described. This critical result was discussed with Blanca Dela Cruz at 2:30 PM on August 31, 2020 and it was ascertained that the content and urgency of the report was understood at the time of direct communication.
--- NOTE | ~2020-08-31 | CT_ITS ---
EXAMINATION: CT CHEST WITH CONTRAST CLINICAL INFORMATION: abnormal cxr,?soft tissue density retrosternal eval for mass COMPARISON: 05/01/2016 TECHNIQUE: Multidetector volumetric CT imaging of the chest was obtained after the administration of 65 mL of Omnipaque 350 intravenous contrast without immediate adverse reactions. Axial MIP volume rendering provided. Sagittal and coronal reformatted images were obtained. This CT examination was performed using dose optimization techniques as appropriate, variously including the following: *Automated exposure control *Adjustment of mA and/or kV according to patient size (this includes techniques or standardized protocols for targeted exams where dose is matched to indication/reason for exam; i.e. extremities or head) *Use of iterative reconstruction technique DLP: 341 mGy-cm FINDINGS: LUNGS: There is a spiculated lobular pulmonary nodule in the right lower lobe measuring 2.3 x 1.5 cm with an adjacent micro-Satellite nodule along the major fissure which measures 1.1 x 0.6 cm. There is adjacent pleural retraction at the fissure as well. In the right upper lobe, there is a 1 x 1 cm pulmonary nodule with spiculated margins as well. In the anterior aspect of the left upper lobe, there is an oblong 1.1 x 0.6 cm reticular, subsolid nodule with adjacent pleural retraction, possibly corresponding to pleural parenchymal scarring, not significantly changed from 2016. Central airways are clear. No airspace consolidation. No bronchiectasis. MEDIASTINUM: Calcific and fibrofatty atherosclerotic disease is present in the thoracic aorta. No aneurysmal dilatation. Avascular calcifications are also present within the coronary arteries. Heart is normal in size. No mediastinal or hilar adenopathy. Thyroid gland is unremarkable. No pericardial effusion PLEURA: Multiple pleural calcifications are identified, notably in the left hemithorax. AXILLA: No lymphadenopathy. UPPER ABDOMEN: Multifocal renal cortical scarring is present at the left kidney. No acute upper abdominal abnormalities. OSSEOUS STRUCTURES: Mild to moderate multilevel degenerative disc disease. No acute osseous abnormalities. No aggressive osseous lesions are identified. CT/CT chest w con IMPRESSION: 1. A 2.3 cm spiculated, lobulated right pulmonary nodule with an adjacent satellite lesion, most concerning for a primary pulmonary neoplasm. 2. A 1 cm spiculated nodule in the right upper lobe which may correspond to a metastatic or metachronous lesion. 3. A 1 cm spiculated subpleural focus at the left lung apex is not significantly changed from 2016, most likely corresponding to pleural parenchymal scarring. Subsegmental nodules can be slow growing, however. Consider correlation with PET-CT as part of a oncologic workup. This critical result was discussed by telephone with AKIKO Quiñones on 08/31/2020 at 9:45 PM.
--- NOTE | ~2020-08-31 | XR_ITS ---
EXAMINATION: XR LUMBAR SPINE XR CHEST XR KNEE, BILATERAL CLINICAL INFORMATION: Fall. COMPARISON: Chest 07/27/2020 TECHNIQUE: Chest 2 views. 4 views each knee. 3 views lumbar spine. FINDINGS: LUMBAR SPINE: There is normal lumbar lordosis. The vertebral heights and alignment is normal. There is loss of disc height virtually at every disc level. There is mild ventral spondylosis. There is minimal dextroscoliosis could be positional. No acute fracture or lytic process seen. RIGHT KNEE: There is mild loss of medial and patellofemoral compartment joint space with mild suprapatellar joint effusion. No bony erosive changes or loose body seen. No acute fracture or subluxation. LEFT KNEE: There is minimal loss of medial compartment joint space. The lateral and the patellofemoral compartment joint space is normal. There is no abnormal joint effusion. No bony erosive changes seen. There is a small anterior enthesophyte along the patella. XR/XR chest 2V IMPRESSION: Small enthesophyte along the anterior patellar left knee. 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 Mild right knee suprapatellar joint effusion. Unremarkable lumbar spine exam.
--- NOTE | ~2020-08-31 | XR_ITS ---
EXAMINATION: XR LUMBAR SPINE XR CHEST XR KNEE, BILATERAL CLINICAL INFORMATION: Fall. COMPARISON: Chest 07/27/2020 TECHNIQUE: Chest 2 views. 4 views each knee. 3 views lumbar spine. FINDINGS: LUMBAR SPINE: There is normal lumbar lordosis. The vertebral heights and alignment is normal. There is loss of disc height virtually at every disc level. There is mild ventral spondylosis. There is minimal dextroscoliosis could be positional. No acute fracture or lytic process seen. RIGHT KNEE: There is mild loss of medial and patellofemoral compartment joint space with mild suprapatellar joint effusion. No bony erosive changes or loose body seen. No acute fracture or subluxation. LEFT KNEE: There is minimal loss of medial compartment joint space. The lateral and the patellofemoral compartment joint space is normal. There is no abnormal joint effusion. No bony erosive changes seen. There is a small anterior enthesophyte along the patella. XR/XR knee RT 4V IMPRESSION: Small enthesophyte along the anterior patellar left knee. 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 Mild right knee suprapatellar joint effusion. Unremarkable lumbar spine exam.
--- NOTE | ~2020-08-31 | XR_ITS ---
EXAMINATION: XR LUMBAR SPINE XR CHEST XR KNEE, BILATERAL CLINICAL INFORMATION: Fall. COMPARISON: Chest 07/27/2020 TECHNIQUE: Chest 2 views. 4 views each knee. 3 views lumbar spine. FINDINGS: LUMBAR SPINE: There is normal lumbar lordosis. The vertebral heights and alignment is normal. There is loss of disc height virtually at every disc level. There is mild ventral spondylosis. There is minimal dextroscoliosis could be positional. No acute fracture or lytic process seen. RIGHT KNEE: There is mild loss of medial and patellofemoral compartment joint space with mild suprapatellar joint effusion. No bony erosive changes or loose body seen. No acute fracture or subluxation. LEFT KNEE: There is minimal loss of medial compartment joint space. The lateral and the patellofemoral compartment joint space is normal. There is no abnormal joint effusion. No bony erosive changes seen. There is a small anterior enthesophyte along the patella. XR/XR lumbar spine 2-3V IMPRESSION: Small enthesophyte along the anterior patellar left knee. 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 Mild right knee suprapatellar joint effusion. Unremarkable lumbar spine exam.
--- NOTE | ~2020-08-31 | CT_ITS ---
EXAMINATION: CT HEAD/BRAIN WITHOUT CONTRAST CLINICAL INFORMATION: Fall with recent CVA COMPARISON: July 27, 2020 TECHNIQUE: CT scanning from base of skull to vertex performed without IV contrast administration. DLP: 718.77 mGy-cm. FINDINGS: There is prominence of ventricles, sulci, and cisterns consistent with generalized atrophy. There is a large amount of periventricular white matter low density consistent with microangiopathy. 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 No blood products are seen within the ventricular system and no definite subarachnoid blood is evident. Paranasal sinuses and mastoid air cells unremarkable. 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 EXAMINATION: CT OF THE CERVICAL SPINE CLINICAL INFORMATION: [facility] [place] COMPARISON: None. TECHNIQUE: Thin helical images with sagittal and coronal reformats. DOSE: DLP 598.92 mGy-cm. FINDINGS: No abnormal prevertebral soft tissue swelling is seen. No acute cervical spine fracture is noted. There is osteopenia visualized bones. There is degenerative change with disc space narrowing from C2 through C7 with marginal spurring. There is some anterior neural foraminal compartment related from spurring of the joints of Luschka bilaterally from C3-C4 through C6-C7. Temporomandibular joints and pterygoid plates intact. Mastoid air cells and visualized paranasal sinuses are well aerated. Bilateral carotid artery calcifications seen. IMPRESSION: No acute cervical spine fracture. Diffuse cervical spondylosis C3 to through C7 as described. This critical result was discussed with Blanca Dela Cruz at 2:30 PM on August 31, 2020 and it was ascertained that the content and urgency of the report was understood at the time of direct communication.
--- NOTE | 2020-08-31 12:47 | ED_ITS ---
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 Most of the h istory is obtained from the family as the patient is confused and a vague historian. Per family since being home patient has not been active, spending most days in recliner, in bed at nighttime. Does have visiting nurses, [facility]. PT to start tomorrow. Patient has had 2 falls at home witnessed by family. They tell me these falls have occurred when the patient stands and starts to walk. he takes 1-2 steps and his knees start to buckle and he falls to the ground. They tell me since falls patient has complained of bilateral knee pain and low back pain. No headache, dizziness, vision changes, chest pain, SOB, palpitations. They did not witness a head injury during these falls. Patient is on ASA only. They have noted some LE swelling but no SOB, weight gain or CP. Patient spends most days in recliner with feet in a dependent positions. Patient has been taking vicodin for his pain management which per family is a new prescription in the last week. Of note, patient has been confused for the last few weeks >1 month which is baseline since stroke per family. No change from baseline. On arrival patient c/o bilateral knee pain, low back pain. Related Data Home Medications Medication Instructions Recorded Confirmed amlodipine 10 mg PO BEDTIME 07/27/20 07/27/20 aspirin 81 mg PO DAILY 07/27/20 07/27/20 atorvastatin 80 mg PO BEDTIME 07/27/20 07/27/20 cholecalciferol (vitamin D3) 25 mcg PO DAILY 07/27/20 07/27/20 furosemide 40 mg PO DAILY 07/27/20 07/27/20 glimepiride 4 mg PO DAILY 07/27/20 07/27/20 hydralazine 25 mg PO BID 07/27/20 07/27/20 insulin asp prt-insulin aspart 37 unit SUBCUT BEDTIME 07/27/20 07/27/20 [Novolog Mix 70-30FlexPen U-100] insulin asp prt-insulin aspart 48 unit SUBCUT DAILY 07/27/20 07/27/20 [Novolog Mix 70-30FlexPen U-100] losartan 100 mg PO DAILY 07/27/20 07/27/20 metoprolol succinate 150 mg PO DAILY 07/27/20 07/27/20 omeprazole 20 mg PO DAILY@0630 07/27/20 07/27/20 Allergies Allergy/AdvReac Type Severity Reaction Status Date / Time Penicillins [PENICILLINS] Allergy Intermediate RASH Verified 08/31/20 12:51 Review of Systems Review of Systems: Yes all other systems are reviewed and are negative Constitutional: Constitutional: Reports no additional constitutional complaints, Denies body ache(s), Denies chills, Denies fever(s), Denies headac he(s) and Reports weakness Eyes: Eyes: Reports no additional eye complaints and Denies change in vision ENT: Reports system reviewed and no additional complaints, except as documented, Denies dizziness, Denies headache(s), Denies nasal congestion, Denies nasal discharge and Denies neck pain Cardiovascular: Cardiovascular: Reports no additional cardiovascular complaints, Denies chest pain, Reports leg edema and Denies dyspnea Respiratory: Respiratory: Reports no additional respiratory complaints, Denies cough and Denies dyspnea Gastrointestinal: Gastrointestinal: Reports no additional gastrointestinal complaints, Denies abdominal pain, Denies diarrhea, Denies nausea and Denies vomiting Genitourinary: Genitourinary: Denies urinary incontinence Musculoskeletal: Musculoskeletal: Reports no additional musculoskeletal complaints, Reports back pain, Reports arthralgias, Denies joint swelling, Denies limited range of motion, Denies neck pain, Denies numbness and Denies tingling Integumentary/Breasts: Skin/Breast: Reports system reviewed and no additional complaints, except as docu and Denies rash Neurologic: Reports system reviewed and no additional complaints, except as documented, Denies Abnormal speech present (normal speech ), Reports confusion, Denies dizziness, Denies headache(s), Denies numbness, Denies tingling and Reports weakness Psychiatric: Psychiatric: Reports confusion PMFSH Past Medical History Attestation statement: The following information was validated with the patient. Source: old records reviewed and nursing notes reviewed Medical History COPD (chronic obstructive pulmonary disease) Diabetes HTN (hypertension) Hyperlipidemia Pneumonia Stroke Social History Social History Household Members: Spouse Housing: House Alcohol intake: unknown Smoking Status: Former smoker Smoked in Last 30 Days: No Use of substances other than those prescribed or required for medical reasons: No Advance Directives: No Advance Directives Information Provided: No service: No Current occupational status: retired Physical Exam Vital Signs: Vital Signs: Last Vital Signs Temp 98.3 F 08/31/20 12:45 Pulse 60 08/31/20 17:40 Resp 19 08/31/20 17:40 BP 123/50 L 08/31/20 17:40 Pulse Ox 95 08/31/20 17:40 Body Mass Index 34.8 Const: General: cooperative, healthy appearing, comfortable, no acute distress and confusion Orientation/consciousness: oriented to person, oriented to place and confusion Limitations: altered mental status HENMT: Head: Yes normal to inspection Ears: hearing grossly normal bilaterally General nose exam: Normal external nose present Face and sinus: Yes normal facial exam Mouth: Normal oral and palatal mucosa present Throat: Yes posterior oropharynx normal Eyes: General: appearance normal, both eyes and all related structures Visual Pool: normal visual pool by confrontation Alignment and Position: alignment normal Pupils: Equal, round and reactive pupils present EOM: EOMs intact bilaterally Neck: Neck: Yes normal visual inspection, Yes full ROM, Yes no lymphadenopathy, Yes no meningeal signs and Yes trachea midline Chest: Chest palpation & inspection: normal inspection of the chest Resp: Effort & Inspection: normal respiratory effort Auscultation: clear to auscultation bilaterally Cardio: Rate: regular rate Rhythm: regular rhythm Peripheral pulses: Peripheral pulses 2+ throughout GI: Inspection: Yes normal to inspection Palpation (GI): Soft to palpation and nontender Auscultation: normal bowel sounds Back/Spine/Pelvis: Other: lower midline tenderness with no step offs, deformities, eechymosis. Thoracic/Lumbar Spine: thoracic and lumbar spine normal to inspection Skin: General skin exam: no rashes or lesions noted Neuro: General: oriented to person, oriented to place, no meningeal signs, no focal motor deficits, normal sensation to monofilament and confusion Cranial nerves: Yes Equal, round and reactive pupils present, Yes Bilaterally intact EOM present, Yes Nystagmus not present, Yes Normal facial strength present and Yes Midline tongue present Cognition (Neuro): normal cognition Speech: No Abnormal speech present (normal speech ) Motor exam (neuro): 5/5 motor strength present throughout Sensory Exam: Normal double simultaneous stimulation for sensation Deep tendon reflexes (DTR's): Right patellar reflex intensity grade: 2+, Left patellar reflex intensity grade: 2+, Right ankle reflex intensity grade: 2+ and Left ankle reflex intensity grade: 2+ Coordination: [id number] test normal and [id number] test normal Extrem: Other: abrasions to bilateral knees with FROM. Mild tenderness. No swelling, erythema, warmth. General: Yes full ROM, Yes capillary refill normal, Yes normal exam except as noted, Yes no calf tenderness and Yes edema (1+ edema (non pitting) bilateral until ankles ) NIH Stroke Scale Internal: Initial- Upon Arrival Level of Consciousness: Alert Level of Consciousness Questions: Answers one question correctly Level of Consciousness Commands: Performs both tasks correctly Best Gaze: Normal Visual: No visual loss Facial Palsy: Normal Motor Arm (Right): No drift Motor Arm (Left): No drift Motor Leg (Right): No drift Motor Leg (Left): No drift Limb Ataxia: Absent Sensory: Normal Best Language: No aphasia Dysarthia: Normal Extinction and Inattention: No abnormality Score: 1 Course Course Course Narrative: 79 yo male here with LE weakness/LE swelling, multiple falls at home with recent admit for CVA. On arrival patient very vague historian, offers little complaints with exception of bilateral knee discomfort and low b ack pain. NO neuro deficit. NIH 1 for confusion which per family is baseline. Called family who share additional concerns of weakness, falls and LE swelling. Will need labs, x-rays (knees, lumbar, chest), ct head/neck, EKG, UA. 1430-CT head shows hemorrhagic conversion of left parietal occipital infarct without significant mass effect. No shift. BP 145/54. No neurological deficits with exception of confusion which is unchanged from baseline. Will discuss with neurology. 1445-Call back from neurology Dr Alva. No further intervention necessary. If no neurological deficits, no mass effect or shift on CT no further intervention required. 1620-x-rays unremarkable. Labs show no acute finding. Urine is negative. EKG shows no ischemic changes. Patient at this point will need physical therapy evaluation and case management involved for possible placement due to the multiple falls at home. Family was updated and agreeable with this. Mildly elevated troponin with no EKG changes. Plan for repeat 3 hour troponin. Mildly elevated BNP with mild lower extremity edema. No hypoxia, shortness of breath, LS CTA. On lasix 40mg. Likely needs increased dose, compression stockings and elevation. 1940-repeat troponin unchanged. Call from radiologist. 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 New when compared to previous. Discussed with attending Dr. York. Recommended obtaining chest CT with contrast eval for mass. Patient will be placed tomorrow per case management. 2100-Sign out to Night team pending above. MDM - Weakness MDM Narrative Medical decision making narrative: [place] infection (uti, pna, viral syndrome), cva vs ich, metabolic abnormality, acs, fx vs contusion, orthostatic hypotension, GB, deconditioning. Less likely GB with no progressive symptoms, normal reflexes. Medical Records Attestation: I reviewed the patient's medical records. Lab Data Attestation: I reviewed the patient's lab results. Result diagrams: 08/31/20 13:25 08/31/20 13:25 Labs: Lab Results 08/31/20 08/31/20 08/31/20 Range/Units 13:25 13:25 13:25 WBC 11.4 H (4.8-10.8) X10*3/uL RBC 4.00 L (4.60-5.80) X10*6/uL Hgb 11.2 L (14.0-18.0) g/dl Hct 35.9 L (42-52) % MCV 89.8 (80-98) fL MCH 28.0 (27.0-33.0) pg MCHC 31.2 (31.0-36.0) g/dl RDW 15.2 (11.0-16.0) % Plt Count 292 (160-400) X10*3/uL MPV 10.2 (9.4-12.4) fL Immature Gran % (Auto) 0.4 (0.0-0.4) % Neut % (Auto) 61.8 (45-73) % Lymph % (Auto) 25.7 (20-40) % [place] % (Auto) 8.7 (2-11) % Eos % (Auto) 3.0 (0-4) % Baso % (Auto) 0.4 (0-2) % Lymph # (Auto) 2.9 (1.2-4.9) X10*3/uL [place] # (Auto) 1.0 (0.1-1.2) X10*3/uL Eos # (Auto) 0.3 (0.0-0.4) X10*3/uL Baso # (Auto) 0.1 (0.0-0.2) X10*3/uL Abs Immat Gran (auto) 0.04 H (0.00-0.03) X10*3/uL Absolute Neuts (auto) 7.1 (2.0-8.3) X10*3/uL Absolute Nucleated RBC 0.000 (0.0-0.012) X10*3/uL Nucleated RBC % (auto) 0.0 (0.0-0.2) /100WBC PT (10.8-13.0) SEC INR (0.9-1.1) Sodium 142 (135-145) mmol/L Potassium 4.6 D (3.3-5.1) mmol/L Chloride 97 (96-108) mmol/L Carbon Dioxide 34 H (22-29) mmol/L Anion Gap 16 (12-20) BUN 26 H D (9-16) mg/dL Creatinine 1.33 (0.5-1.4) mg/dL Estim Creat Clear Calc 45.5 Estimated GFR 52 Random Glucose 151 H (60-115) mg/dL Calcium 9.7 D (8.4-10.2) mg/dL Magnesium 2.0 (1.6-2.6) mg/dL Total Bilirubin 0.5 (0.0-1.0) mg/dL Direct Bilirubin 0.2 (0.0-0.5) mg/dL AST 34 D (5-37) U/L ALT 21 (0-40) U/L Alkaline Phosphatase 115 D (39-117) U/L Troponin I High Sens 14.9 (<3.5-35.0) ng/L B-Natriuretic Peptide (<100) pg/mL Total Protein 7.1 (6.5-8.0) g/dL Albumin 3.6 (3.5-5.0) g/dL Urine Color Urine Appearance Urine pH (5.0-8.0) Ur Specific [place] (1.005-1.025) Urine Protein (NEG-TRACE) MG/DL Urine Glucose (UA) (NEG) MG/DL Urine Ketones (NEG) MG/DL Urine Blood (NEG) Urine Nitrite (NEG) Ur Leukocyte Esterase (NEG) COVID-19 (SHANA) (Negative) COVID-19 Clin Com 08/31/20 08/31/20 08/31/20 Range/Units 13:25 13:25 13:25 WBC (4.8-10.8) X10*3/uL RBC (4.60-5.80) X10*6/uL Hgb (14.0-18.0) g/dl Hct (42-52) % MCV (80-98) fL MCH (27.0-33.0) pg MCHC (31.0-36.0) g/dl RDW (11.0-16.0) % Plt Count (160-400) X10*3/uL MPV (9.4-12.4) fL Immature Gran % (Auto) (0.0-0.4) % Neut % (Auto) (45-73) % Lymph % (Auto) (20-40) % [place] % (Auto) (2-11) % Eos % (Auto) (0-4) % Baso % (Auto) (0-2) % Lymph # (Auto) (1.2-4.9) X10*3/uL [place] # (Auto) (0.1-1.2) X10*3/uL Eos # (Auto) (0.0-0.4) X10*3/uL Baso # (Auto) (0.0-0.2) X10*3/uL Abs Immat Gran (auto) (0.00-0.03) X10*3/uL Absolute Neuts (auto) (2.0-8.3) X10*3/uL Absolute Nucleated RBC (0.0-0.012) X10*3/uL Nucleated RBC % (auto) (0.0-0.2) /100WBC PT 12.7 (10.8-13.0) SEC INR 1.1 (0.9-1.1) Sodium (135-145) mmol/L Potassium (3.3-5.1) mmol/L Chloride (96-108) mmol/L Carbon Dioxide (22-29) mmol/L Anion Gap (12-20) BUN (9-16) mg/dL Creatinine (0.5-1.4) mg/dL Estim Creat Clear Calc Estimated GFR Random Glucose (60-115) mg/dL Calcium (8.4-10.2) mg/dL Magnesium (1.6-2.6) mg/dL Total Bilirubin (0.0-1.0) mg/dL Direct Bilirubin (0.0-0.5) mg/dL AST (5-37) U/L ALT (0-40) U/L Alkaline Phosphatase (39-117) U/L Troponin I High Sens (<3.5-35.0) ng/L B-Natriuretic Peptide 108 H (<100) pg/mL Total Protein (6.5-8.0) g/dL Albumin (3.5-5.0) g/dL Urine Color Urine Appearance Urine pH (5.0-8.0) Ur Specific [place] (1.005-1.025) Urine Protein (NEG-TRACE) MG/DL Urine Glucose (UA) (NEG) MG/DL Urine Ketones (NEG) MG/DL Urine Blood (NEG) Urine Nitrite (NEG) Ur Leukocyte Esterase (NEG) COVID-19 (SHANA) Negative (Negative) COVID-19 Clin Com See Note 08/31/20 08/31/20 Range/Units 13:25 16:39 WBC (4.8-10.8) X10*3/uL RBC (4.60-5.80) X10*6/uL Hgb (14.0-18.0) g/dl Hct (42-52) % MCV (80-98) fL MCH (27.0-33.0) pg MCHC (31.0-36.0) g/dl RDW (11.0-16.0) % Plt Count (160-400) X10*3/uL MPV (9.4-12.4) fL Immature Gran % (Auto) (0.0-0.4) % Neut % (Auto) (45-73) % Lymph % (Auto) (20-40) % [place] % (Auto) (2-11) % Eos % (Auto) (0-4) % Baso % (Auto) (0-2) % Lymph # (Auto) (1.2-4.9) X10*3/uL [place] # (Auto) (0.1-1.2) X10*3/uL Eos # (Auto) (0.0-0.4) X10*3/uL Baso # (Auto) (0.0-0.2) X10*3/uL Abs Immat Gran (auto) (0.00-0.03) X10*3/uL Absolute Neuts (auto) (2.0-8.3) X10*3/uL Absolute Nucleated RBC (0.0-0.012) X10*3/uL Nucleated RBC % (auto) (0.0-0.2) /100WBC PT (10.8-13.0) SEC INR (0.9-1.1) Sodium (135-145) mmol/L Potassium (3.3-5.1) mmol/L Chloride (96-108) mmol/L Carbon Dioxide (22-29) mmol/L Anion Gap (12-20) BUN (9-16) mg/dL Creatinine (0.5-1.4) mg/dL Estim Creat Clear Calc Estimated GFR Random Glucose (60-115) mg/dL Calcium (8.4-10.2) mg/dL Magnesium (1.6-2.6) mg/dL Total Bilirubin (0.0-1.0) mg/dL Direct Bilirubin (0.0-0.5) mg/dL AST (5-37) U/L ALT (0-40) U/L Alkaline Phosphatase (39-117) U/L Troponin I High Sens 11.4 (<3.5-35.0) ng/L B-Natriuretic Peptide (<100) pg/mL Total Protein (6.5-8.0) g/dL Albumin (3.5-5.0) g/dL Urine Color YELLOW Urine Appearance CLEAR Urine pH 6.0 (5.0-8.0) Ur Specific [place] 1.010 (1.005-1.025) Urine Protein NEG (NEG-TRACE) MG/DL Urine Glucose (UA) NEG (NEG) MG/DL Urine Ketones NEG (NEG) MG/DL Urine Blood NEG (NEG) Urine Nitrite NEG (NEG) Ur Leukocyte Esterase NEG (NEG) COVID-19 (SHANA) (Negative) COVID-19 Clin Com Imaging Data CT scan - head: Attestation: I personally reviewed and interpreted this imaging study as follows: Radiologist's impression: Hemorrhagic conversion of left parietal occipital infarct without significant mass effect. lumbar xray: Attestation: I personally reviewed and interpreted this imaging study as follows: Radiologist's impression: LUMBAR SPINE: There is normal lumbar lordosis. The vertebral heights and alignment is normal. There is loss of disc height virtually at every disc level. There is mild ventral spondylosis. There is minimal dextroscoliosis could be positional. No acute fracture or lytic process seen. knee left xray: Attestation: I personally reviewed and interpreted this imaging study as follows: Radiologist's impression: LEFT KNEE: There is minimal loss of medial compartment joint space. The lateral and the patellofemoral compartment joint space is normal. There is no abnormal joint effusion. No bony erosive changes seen. There is a small anterior enthesophyte along the patella. right knee xray: Attestation: I personally reviewed and interpreted this imaging study as follows: Radiologist's impression: RIGHT KNEE: There is mild loss of medial and patellofemoral compartment joint space with mild suprapatellar joint effusion. No bony erosive changes or loose body seen. No acute fracture or subluxation. Chest x-ray: Attestation: I personally reviewed and interpreted this imaging study as follows: Radiologist's impression: EXAMINATION: Chest. CLINICAL INDICATION: fall. COMPARISON: Chest 07/27/2020 FINDINGS: The lungs are well-expanded and clear of acute pneumonic process. There is a nodular densities in the right lung base on PA projection not seen on the AP projection question artifact versus underlying nodule. Heart size and pulmonary vascularity is normal. There is soft tissue density in the superior mediastinum likely retrosternal goiter and or ectatic arch. No gross bony abnormality seen. IMPRESSION: Small nodule right lower lobe stable compared to 07/27/2020. 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 Consider CT chest exam. ECG Data Attestation: I personally reviewed and interpreted this ECG as follows: ECG interpretation date: 08/31/20 ECG interpretation time: 14:16 Interpretation: NSR, normal pr, normal qrs, normal qtc Discharge Plan Discharge Clinical Impression: Weakness, Multiple falls Patient Disposition: [facility] Prescriptions: No Action furosemide 40 mg Tablet 40 mg PO DAILY RF: 0 atorvastatin 80 mg Tablet 80 mg PO BEDTIME RF: 0 metoprolol succinate 100 mg Tablet Extended Release 24 Hr 150 mg PO DAILY RF: 0 hydralazine 25 mg Tablet 25 mg PO BID RF: 0 aspirin 81 mg Tablet,Delayed Release (Dr/Ec) 81 mg PO DAILY RF: 0 amlodipine 10 mg Tablet 10 mg PO BEDTIME RF: 0 glimepiride 4 mg Tablet 4 mg PO DAILY RF: 0 omeprazole 20 mg Capsule,Delayed Release(Dr/Ec) 20 mg PO DAILY@0630 RF: 0 losartan 100 mg Tablet 100 mg PO DAILY RF: 0 insulin asp prt-insulin aspart [Novolog Mix 70-30FlexPen U-100] 100 unit/mL (70-30) Insulin Pen 48 unit SUBCUT DAILY RF: 0 insulin asp prt-insulin aspart [Novolog Mix 70-30FlexPen U-100] 100 unit/mL (70-30) Insulin Pen 37 unit SUBCUT BEDTIME RF: 0 cholecalciferol (vitamin D3) 25 mcg (1,000 unit) Tablet 25 mcg PO DAILY RF: 0
--- NOTE | 2020-08-31 13:06 | ECG_ITS ---
Test Reason : FALL Blood Pressure : / mmHG Vent. Rate : 062 BPM Atrial Rate : 062 BPM P-R Int : 188 ms QRS Dur : 086 ms QT Int : 394 ms P-R-T Axes : 038 003 025 degrees QTc Int : 399 ms Normal sinus rhythm Normal ECG When compared to the previous EKG of 27 jul 2020, PVC not seen. Referred By: Blanca Dela Cruz Electronically Signed By:JEFFERY PLUMMER
[2020-08-31 13:31] LABS: MANUAL DIFF FLAG NO
[2020-08-31 13:35] LABS: Basophils Absolute Auto 0.1 X10*3/uL (0.0-0.2); Basophils Percent Auto 0.4 % (0-2); Eosinophils Absolute Auto 0.3 X10*3/uL (0.0-0.4); Hematocrit 35.9 % (42-52); Hemoglobin 11.2 g/dl (14.0-18.0); Imm Gran Abs Auto 0.04 X10*3/uL (0.00-0.03); Imm Gran Pct Auto 0.4 % (0.0-0.4); Lymphocytes Absolute Auto 2.9 X10*3/uL (1.2-4.9); Lymphocytes Percent Auto 25.7 % (20-40); Mean Corpuscular HGB Conc 31.2 g/dl (31.0-36.0); Mean Corpuscular Volume 89.8 fL (80-98); Mean Platelet Volume 10.2 fL (9.4-12.4); Monocytes Percent Auto 8.7 % (2-11); Neutrophils Absolute Auto 7.1 X10*3/uL (2.0-8.3); Neutrophils Percent Auto 61.8 % (45-73); Platelet Count 292 X10*3/uL (160-400); Red Cell Distribution Width 15.2 % (11.0-16.0); White Blood Count 11.4 X10*3/uL (4.8-10.8)
[2020-08-31 13:36] LABS: Glucose Urine UA NEG (NEG); Leukocyte Esterase Urine NEG (NEG); Nitrite Urine NEG (NEG); Urine Blood NEG (NEG); Urine Ketones NEG (NEG); Urine Protein NEG (NEG-TRACE)
[2020-08-31 13:40] LABS: Appearance Urine CLEAR; Color Urine YELLOW
[2020-08-31 13:42] LABS: INTERNATIONAL NORM RATIO 1.1 (0.9-1.1); Prothrombin Time 12.7 SEC (10.8-13.0)
[2020-08-31 13:50] LABS: COVID-19 Test Negative (Negative)
[2020-08-31 14:07] LABS: B Type Natriuretic Peptide 108 pg/mL (<100); Troponin-I High Sensitivity 14.9 ng/L (<3.5-35.0)
[2020-08-31 14:09] LABS: Alanine Aminotransferase 21 U/L (0-40); Albumin Level 3.6 g/dL (3.5-5.0); Alkaline Phosphatase 115 U/L (39-117); Anion Gap 16 (12-20); Aspartate Amino Transferase 34 U/L (5-37); Bilirubin Direct 0.2 mg/dL (0.0-0.5); Bilirubin Total 0.5 mg/dL (0.0-1.0); Blood Urea Nitrogen 26 mg/dL (9-16); Calcium 9.7 mg/dL (8.4-10.2); Carbon Dioxide 34 mmol/L (22-29); Chloride 97 mmol/L (96-108); Creatinine Clr Calc Pharmacy 45.5; Estimated Glomerular Filt Rate 52; Glucose Random 151 mg/dL (60-115); Potassium 4.6 mmol/L (3.3-5.1); Sodium 142 mmol/L (135-145); Total Protein 7.1 g/dL (6.5-8.0)
--- NOTE | 2020-08-31 15:23 | MHC.CM.ED ---
Received case management consult from Blanca TORRES. Patient was discharged from [facility] 08/21 with VNA and PHERESIS NURSE. Patient came to ER due to a fall. Found to have a head hemorrhage. Per Neuro, patient will only be medically managed and the bleed should heal on its own in about 6 weeks. Per Blanca, family was not happy with [facility]. Attemped to reach patient's step son, Flex via telephone at [phone]. No answer. Attempted to reach patient's step daughter, Ashely via telephone at [phone]. Left voicemail requesting return telephone call. Referrals sent to [facility] at this time. PT eval is pending. No HCP is on file at [facility], [facility], or [facility]. Continue to monitor for d/c needs.
[2020-08-31 17:20] LABS: Troponin-I High Sensitivity 11.4 ng/L (<3.5-35.0)
--- NOTE | 2020-08-31 18:11 | MHC.CM.ED ---
CM met with pt. Alert to person and place. No sure of why he is in the emergency room. Doesn't remember falling. Informed that he has some bleeding in his head that is controlled. Informed that PT recommneds STR. Pt c/o right leg and foot discomfort. Pt would like to go home, but understands he needs to go to STR to get stronger to go home. Explained with railroad cook what a HCP is. Pt requests his be HCP, Grace Alexander ([phone]) and Flex Bass ([phone]) be the alternate. Spoke with Flex at [phone]. Reviewed medical record and PT recommendations for STR. Explained that acute rehab may be best with him having a brain Hemorrhage. Reviewed that both [facility] and [place] have accepted pt. Flex would like pt to go to [facility] Pt had recently been at [facility] and Flex was not happy that they discharged his step-father and he did not have services at home. Spoke with pt and he is agreeable to [facility] if Flex thinks it best. Expect d/c tomorrow to [facility] via BLS. CM to follow for d/c needs.
--- NOTE | 2020-08-31 18:33 | PC.NURSE ---
Pt is alert x 2 (uknown date), rr even, speaks in full sentences, skin is pwdi, and he is in nad. He presents to the ED with concerns from family over falls and weakness, status post a stroke 1 month. CM reviewed paln with pt, post-ED work-up, which consists of SNF placement tomorrow. Pt agrees with plan. He will remain on observation in ED until bed availability tomorrow at [facility].
--- NOTE | 2020-08-31 18:54 | MHC.CM.ED ---
HCP reviewed, completed and signed. Uploaded in [employer] and [facility]. HCP/ Carolyne Alexander ([phone]) haitian speaking and alternate Flex Bass ([phone]) tajik speaking. Pt and his live with Flex. Copies of HCP given to pt. CM continuing to follow for d/c needs.
--- NOTE | 2020-08-31 21:40 | PC.NURSE ---
Patient given food and juice. Repositioned. Oriented to place and overnight stay pending transfer to rehab tomorrow.
[2020-09-01] VITALS: RESP 16
[2020-09-01 06:00] VITALS: PULSE 70; RESP 16; O2SAT 99
--- NOTE | 2020-09-01 07:48 | PC.NURSE ---
patient up in bed, helped with breakfast tray.
[2020-09-01 08:50] VITALS: BP 154/44; PULSE 63; RESP 18; O2SAT 95
--- NOTE | 2020-09-01 08:59 | MHC.CM.ED ---
Patient remains in ER. Per Ann at [facility], patient can leave at 11am. [facility] booked. [facility] with chart. Spoke with patient's step son Flex via telephone at [phone]. Flex upset patient isn't going to [facility]. T/W explained patient has a brain hemorrhage due to his fall. [facility] is a higher level of care. Flex verbalized understanding and agreeable. Patient, Braeden RN and Pasha [facility] CL[facility]PER aware. Continue to monitor for d/c needs.
[2020-09-01] MEDS: polyethylene glycoL 3350 17 GM POWD.PACK PO (10:25)
[2020-09-01] MEDS: Omeprazole 20 MG CAPSULE.DR PO (10:25)
[2020-09-01 10:26] VITALS: BP 161/53; PULSE 72
[2020-09-01] MEDS: Insulin Glargine,Hum.rec.anlog 100 UNIT/ML 10 ML VIAL 26 UNIT SUBCUT (10:26)
[2020-09-01] MEDS: Metoprolol Succinate ER 50 MG TAB.ER.24H 150 MG PO (10:26)
[2020-09-01] MEDS: Aspirin Enteric Coated 81 MG TABLET.DR PO (10:27)
[2020-09-01] MEDS: Losartan Potassium 50 MG TABLET 100 MG PO (10:27)
[2020-09-01] MEDS: Furosemide 40 MG TABLET PO (10:27)
[2020-09-01] MEDS: Cholecalciferol (Vitamin D3) 25 MCG TABLET PO (10:27)
[2020-09-01] MEDS: Docusate Sodium 100 MG CAPSULE PO (10:27)
[2020-09-01] MEDS: Gabapentin 100 MG CAPSULE PO (10:27)
[2020-09-01] MEDS: Ascorbic Acid 500 MG TABLET PO (10:27)
[2020-09-01 10:28] VITALS: PULSE 72
[2020-09-01 10:28] LABS: Glucose, Whole Blood 242 mg/dL (60-115)
[2020-09-01] MEDS: hydrALAZINE HCl 50 MG TABLET PO (10:28)
== END 2020-09-01 11:00 | disposition skilled nursing facility (03) ==
PROVIDERS: Nurse Practitioner Family; Emergency Provider Internal Medicine; PCP Internal Medicine
DX: I63.532 Cerebral infarction due to unspecified occlusion or stenosis of left posterior cerebral artery (principal); S80.212A Abrasion, left knee, initial encounter; S80.211A Abrasion, right knee, initial encounter; W01.0XXA Fall on same level from slipping, tripping and stumbling without subsequent striking against object, initial encounter; R53.1 Weakness; Z91.81 History of falling; R91.8 Other nonspecific abnormal finding of lung field; M25.562 Pain in left knee; M25.561 Pain in right knee; M54.5 Low back pain; M76.51 Patellar tendinitis, right knee; R60.0 Localized edema; R77.8 Other specified abnormalities of plasma proteins; Z20.822 Contact with and (suspected) exposure to COVID-19; J44.9 Chronic obstructive pulmonary disease, unspecified; E11.9 Type 2 diabetes mellitus without complications; E78.5 Hyperlipidemia, unspecified; G89.29 Other chronic pain; Z79.891 Long term (current) use of opiate analgesic; Z86.73 Personal history of transient ischemic attack (TIA), and cerebral infarction without residual deficits; Z87.01 Personal history of pneumonia (recurrent); Z79.82 Long term (current) use of aspirin; Z79.02 Long term (current) use of antithrombotics/antiplatelets; Z79.4 Long term (current) use of insulin; Z79.899 Other long term (current) drug therapy; Z87.891 Personal history of nicotine dependence; Y93.9 Activity, unspecified; Y92.019 Unspecified place in single-family (private) house as the place of occurrence of the external cause; Y99.9 Unspecified external cause status
CPT/HCPCS: 36415; 70450; 71046; 71260; 72100; 72125; 73564; 80048; 80076; 81003; 82947; 83735; 83880; 84484; 85025; 85610; 87635; 93005; 96372; 97162; 99284; 99285; Q9967

== ENCOUNTER → 2020-09-19 09:07 | Day surgery (SDC) | payer MEDICARE, MEDICAID, SELFPAY ==
[2020-09-19 10:10] LABS: Glucose, Whole Blood 145 mg/dL (60-115)
[2020-09-19 10:47] LABS: Anion Gap 12 (12-20); Blood Urea Nitrogen 38 mg/dL (9-16); Carbon Dioxide 28 mmol/L (22-29); Chloride 104 mmol/L (96-108); Estimated Glomerular Filt Rate 55; Potassium 4.9 mmol/L (3.3-5.1); Sodium 139 mmol/L (135-145)
== END ==
PROVIDERS: Radiology Diagnostic Radiology; PCP Internal Medicine; Visit Provider Radiology Diagnostic Radiology
DX: R91.8 Other nonspecific abnormal finding of lung field (principal); Z53.9 Procedure and treatment not carried out, unspecified reason; E11.9 Type 2 diabetes mellitus without complications; I10 Essential (primary) hypertension; J44.9 Chronic obstructive pulmonary disease, unspecified; Z79.4 Long term (current) use of insulin; Z79.899 Other long term (current) drug therapy
CPT/HCPCS: 36415; 80051; 82565; 82947; 84520; J2250; J3010

== ENCOUNTER 2020-10-13 11:04 | Day surgery (SDC) | payer MEDICARE, MEDICAID, SELFPAY ==
--- NOTE | ~2020-10-13 | CT_ITS ---
EXAMINATION: CT-GUIDED NEEDLE PLACEMENT CT-GUIDED LUNG BIOPSY CT-GUIDED FNA CLINICAL INFORMATION: Right lower lobe nodule. COMPARISON: Previous chest CT August 2020. TECHNIQUE: Procedure and risks and benefits including bleeding, infection and pneumothorax were discussed with the patient's healthcare proxy, his [id number] by telephone and informed consent was obtained. The patient was positioned in the supine/slight LPO position. Limited axial images through the lower chest was performed. The right lateral chest was prepped and draped in the usual sterile fashion. The skin and soft tissues were anesthetized with 1% lidocaine plain. Using CT guidance and a coaxial system, access to the right lower lobe nodule was obtained. Four 20-gauge core biopsies were obtained. There is no complication. The patient received Versed 2 mg and fentanyl 100 mcg intravenously during the procedure. DLP: 157 mGy-cm. SEDATION TIME: 40 minutes. FINDINGS: There is a 2 cm right lower lobe nodule that was targeted for biopsy. CT/CT guided FNA IMPRESSION: CT-guided right lower lobe lung nodule biopsy.
--- NOTE | ~2020-10-13 | XR_ITS ---
EXAMINATION: XR CHEST CLINICAL INFORMATION: Post right lower lung biopsy COMPARISON: Previous chest x-ray most recent 08/31/2020 TECHNIQUE: Frontal view of the chest was obtained. FINDINGS: The cardiac and mediastinal contours are stable. The lung volumes are low. The known right lower lobe nodule is not well visualized. There is no pleural effusion or pneumothorax. Bony structures are unremarkable. XR/XR chest 1V IMPRESSION: No pneumothorax post right lower lobe lung biopsy.
--- NOTE | ~2020-10-13 | CT_ITS ---
EXAMINATION: CT-GUIDED NEEDLE PLACEMENT CT-GUIDED LUNG BIOPSY CT-GUIDED FNA CLINICAL INFORMATION: Right lower lobe nodule. COMPARISON: Previous chest CT August 2020. TECHNIQUE: Procedure and risks and benefits including bleeding, infection and pneumothorax were discussed with the patient's healthcare proxy, his [id number] by telephone and informed consent was obtained. The patient was positioned in the supine/slight LPO position. Limited axial images through the lower chest was performed. The right lateral chest was prepped and draped in the usual sterile fashion. The skin and soft tissues were anesthetized with 1% lidocaine plain. Using CT guidance and a coaxial system, access to the right lower lobe nodule was obtained. Four 20-gauge core biopsies were obtained. There is no complication. The patient received Versed 2 mg and fentanyl 100 mcg intravenously during the procedure. DLP: 157 mGy-cm. SEDATION TIME: 40 minutes. FINDINGS: There is a 2 cm right lower lobe nodule that was targeted for biopsy. CT/CT biopsy lung RT IMPRESSION: CT-guided right lower lobe lung nodule biopsy.
--- NOTE | ~2020-10-13 | CT_ITS ---
EXAMINATION: CT-GUIDED NEEDLE PLACEMENT CT-GUIDED LUNG BIOPSY CT-GUIDED FNA CLINICAL INFORMATION: Right lower lobe nodule. COMPARISON: Previous chest CT August 2020. TECHNIQUE: Procedure and risks and benefits including bleeding, infection and pneumothorax were discussed with the patient's healthcare proxy, his [id number] by telephone and informed consent was obtained. The patient was positioned in the supine/slight LPO position. Limited axial images through the lower chest was performed. The right lateral chest was prepped and draped in the usual sterile fashion. The skin and soft tissues were anesthetized with 1% lidocaine plain. Using CT guidance and a coaxial system, access to the right lower lobe nodule was obtained. Four 20-gauge core biopsies were obtained. There is no complication. The patient received Versed 2 mg and fentanyl 100 mcg intravenously during the procedure. DLP: 157 mGy-cm. SEDATION TIME: 40 minutes. FINDINGS: There is a 2 cm right lower lobe nodule that was targeted for biopsy. CT/CT guided needle placement IMPRESSION: CT-guided right lower lobe lung nodule biopsy.
[2020-10-13 11:24] VITALS: BMI 27.3
[2020-10-13 11:34] LABS: MANUAL DIFF FLAG NO
[2020-10-13 11:45] LABS: Basophils Absolute Auto 0.1 X10*3/uL (0.0-0.2); Basophils Percent Auto 0.6 % (0-2); Eosinophils Absolute Auto 0.5 X10*3/uL (0.0-0.4); Eosinophils Percent Auto 4.6 % (0-4); Hematocrit 35.5 % (42-52); Hemoglobin 11.4 g/dl (14.0-18.0); Imm Gran Abs Auto 0.02 X10*3/uL (0.00-0.03); Imm Gran Pct Auto 0.2 % (0.0-0.4); Lymphocytes Absolute Auto 3.4 X10*3/uL (1.2-4.9); Lymphocytes Percent Auto 30.7 % (20-40); Mean Corpuscular HGB Conc 32.1 g/dl (31.0-36.0); Mean Corpuscular Hemoglobin 28.9 pg (27.0-33.0); Mean Corpuscular Volume 90.1 fL (80-98); Mean Platelet Volume 10.8 fL (9.4-12.4); Monocytes Absolute Auto 0.6 X10*3/uL (0.1-1.2); Monocytes Percent Auto 5.8 % (2-11); Neutrophils Absolute Auto 6.4 X10*3/uL (2.0-8.3); Neutrophils Percent Auto 58.1 % (45-73); Platelet Count 291 X10*3/uL (160-400); Prothrombin Time 12.2 SEC (10.8-13.0); Red Blood Count 3.94 X10*6/uL (4.60-5.80); Red Cell Distribution Width 15.1 % (11.0-16.0); White Blood Count 11.1 X10*3/uL (4.8-10.8)
[2020-10-13 11:48] LABS: Partial Thromboplastin Time 42.4 SEC (24.1-38.0)
[2020-10-13 12:01] LABS: Anion Gap 14 (12-20); Blood Urea Nitrogen 26 mg/dL (9-16); Carbon Dioxide 31 mmol/L (22-29); Chloride 100 mmol/L (96-108); Potassium 4.8 mmol/L (3.3-5.1); Sodium 140 mmol/L (135-145)
[2020-10-13 12:54] LABS: Glucose, Whole Blood 195 mg/dL (60-115)
[2020-10-13 14:25] VITALS: BP 145/102; PULSE 67; RESP 18; TEMP 36.2; O2SAT 96
--- NOTE | 2020-10-13 14:27 | HO.RADPN ---
RADIOLOGY Narrative Narrative: Right lower lobe 20g core biopsy x3 and 22g FNA performed using coaxial system. No complication.
[2020-10-13 14:40] VITALS: BP 137/99; PULSE 68; RESP 18; O2SAT 95
[2020-10-13 14:55] VITALS: BP 172/69; PULSE 73; RESP 18; O2SAT 96
[2020-10-13 15:25] VITALS: BP 146/73; PULSE 72; RESP 18; O2SAT 96
[2020-10-13 15:55] VITALS: BP 150/42; PULSE 71; RESP 18; O2SAT 96
== END 2020-10-13 16:19 | disposition home or self-care (01) ==
PROVIDERS: Radiology Diagnostic Radiology; PCP Internal Medicine; Visit Provider Radiology Diagnostic Radiology
DX: R91.1 Solitary pulmonary nodule (principal); C34.31 Malignant neoplasm of lower lobe, right bronchus or lung; I10 Essential (primary) hypertension; J44.9 Chronic obstructive pulmonary disease, unspecified; E11.9 Type 2 diabetes mellitus without complications; Z79.4 Long term (current) use of insulin; Z79.899 Other long term (current) drug therapy; Z86.73 Personal history of transient ischemic attack (TIA), and cerebral infarction without residual deficits; Z87.01 Personal history of pneumonia (recurrent); Z87.891 Personal history of nicotine dependence
CPT/HCPCS: 10009; 32408; 36415; 71045; 77012; 80051; 81210; 81235; 82947; 84520; 85025; 85610; 85730; 88173; 88305; 88341; 88342; 88360; 88377; 99152; 99153; J2250; J3010

== ENCOUNTER 2020-11-01 10:24 | Outpatient (REF) | payer MEDICARE, MEDICAID, SELFPAY ==
--- NOTE | ~2020-11-01 | MR_ITS ---
MRI OF THE BRAIN WITH AND WITHOUT IV CONTRAST INDICATION: Staging of lung cancer. COMPARISON: Brain MRI 07/22/2020. TECHNIQUE: Multiplanar multisequence MR imaging of the brain was obtained without and following the administration of 8.5 mL of Gadavist without complication. 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 There is no hydrocephalus, extra-axial surface collection, or herniation. The major flow voids at the skull base are preserved. 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 There is no acute infarct on diffusion-weighted imaging. There is no intracranial hemorrhage on the gradient recalled echo acquisition. The midline structures are normal. The cerebellar tonsils are normally positioned. The craniocervical junction is normal. Osseous marrow signal intensity is homogenous. The visualized soft tissues are unremarkable. MR/MR head/brain wo/w con IMPRESSION: - No suspicious enhancing intracranial lesions to suggest intracranial metastatic disease. 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 There is some gyriform enhancement in the left occipital lobe in the setting of chronic infarction, most likely attributable to chronic blood brain barrier breakdown. - There is background advanced chronic microangiopathy.
== END 2020-11-01 10:25 | disposition home or self-care (01) ==
LOC: HO.MRI 10:24
PROVIDERS: Visit Provider Internal Medicine
DX: C34.90 Malignant neoplasm of unspecified part of unspecified bronchus or lung (principal)
CPT/HCPCS: 70553; A9585

== ENCOUNTER 2021-01-10 13:04 | Outpatient (REF) | payer MEDICARE, MEDICAID, SELFPAY ==
--- NOTE | ~2021-01-10 | CT_ITS ---
EXAMINATION: CT ABDOMEN AND PELVIS WITHOUT CONTRAST CLINICAL INFORMATION: Lung cancer staging. COMPARISON: Previous renal ultrasound December 2013 TECHNIQUE: Multidetector volumetric imaging was performed from the superior aspect of the liver through the pubic symphysis. Sagittal and coronal reformatted images were obtained on the technologist's workstation. This CT examination was performed using dose optimization techniques as appropriate, variously including the following: *Automated exposure control *Adjustment of mA and/or kV according to patient size (this includes techniques or standardized protocols for targeted exams where dose is matched to indication/reason for exam; i.e. extremities or head) *Use of iterative reconstruction technique DLP: 465 mGy-cm FINDINGS: LUNG BASES: The visualized lung bases are unremarkable. LIVER, GALLBLADDER, AND BILIARY TREE: The liver is normal in size, shape, and attenuation. No focal hepatic lesion or biliary ductal dilatation is present. The gallbladder is unremarkable with no evidence of radiopaque gallstones, gallbladder wall thickening, or obvious pericholecystic inflammatory changes. PANCREAS: Unremarkable. SPLEEN: Unremarkable. ADRENAL GLANDS: Unremarkable. KIDNEYS AND URETERS: There is a small 3 mm stone in the upper pole of the right kidney. There are other small right renal calcifications probably representing vascular calcifications as opposed to stones. There is a 1 cm lesion exophytic to the medial lower pole of the left kidney axial image 37 series 3. Hounsfield units without contrast measure 25 not compatible with a simple cyst. Kidneys are otherwise unremarkable. BLADDER: Unremarkable. GASTROINTESTINAL TRACT: The small and large bowel are unremarkable. The appendix is unremarkable. ABDOMINAL WALL: There are bilateral inguinal hernias containing fat. LYMPH NODES: Normal. VASCULAR: There is evidence of atherosclerotic disease. No aneurysm is seen. PELVIC VISCERA: Unremarkable. OSSEOUS STRUCTURES: There are degenerative changes of the spine. CT/CT abdomen pelvis wo con IMPRESSION: Small right renal stone. 1 cm lesion exophytic to the lower pole of the left kidney. It is uncertain whether this represents a complex cyst or solid lesion. Followup renal ultrasound is recommended.
--- NOTE | ~2021-01-10 | CT_ITS ---
EXAMINATION: CT CHEST WITHOUT CONTRAST CLINICAL INFORMATION: Lung cancer. Staging. COMPARISON: Previous chest CT 08/31/[address] November 2020 TECHNIQUE: Multidetector volumetric CT imaging of the chest was done. Axial MIP volume rendering provided. Sagittal and coronal reformatted images were obtained. This CT examination was performed using dose optimization techniques as appropriate, variously including the following: *Automated exposure control *Adjustment of mA and/or kV according to patient size (this includes techniques or standardized protocols for targeted exams where dose is matched to indication/reason for exam; i.e. extremities or head) *Use of iterative reconstruction technique DLP: 159 mGy-cm FINDINGS: LUNGS: There is a linear density in the medial apical right upper lobe probably representing scarring or subsegmental atelectasis axial image 111 series 7. There is an abnormal parenchymal density in the anterior segment of the left upper lobe. This abuts the pleural surface and there is adjacent pleural thickening. This is unchanged and measures 2 x 6 mm in AP and transverse dimension. There is a 9 mm posterior segment right upper lobe nodule that appears unchanged axial image 244 series 7. There is a spiculated right lower lobe nodule that measures 1.5 x 2 cm axial image 332 series 7. This does not appear appreciably changed in size. This has a spicule that extends laterally into the adjacent pleural surface/right major fissure. The lungs are otherwise clear. MEDIASTINUM: There are small mediastinal lymph nodes that are stable. No enlarged lymph nodes are seen. The heart does not appear enlarged. There is severe coronary artery calcification. There is severe aortic valve calcification. The thoracic aorta is tortuous and upper normal in size.. There is no pericardial effusion. PLEURA: There is a left pleural calcification. There is no pleural effusion or pleural thickening. AXILLA: There are small bilateral axillary lymph nodes. No enlarged lymph nodes are seen. OSSEOUS STRUCTURES: There are degenerative changes of the spine. CT/CT chest wo con IMPRESSION: Stable right upper and right lower lobe pulmonary nodules and abnormal parenchymal density in the left upper lobe. Coronary artery calcification.
== END 2021-01-10 13:05 | disposition home or self-care (01) ==
LOC: HO.CT 13:04
PROVIDERS: Visit Provider Internal Medicine
DX: C34.90 Malignant neoplasm of unspecified part of unspecified bronchus or lung (principal)
CPT/HCPCS: 71250; 74176

== ENCOUNTER 2021-01-18 08:40 | Emergency (ER) | payer MEDICARE, MEDICAID, SELFPAY ==
--- NOTE | ~2021-01-18 | US_ITS ---
EXAMINATION: US ABDOMEN LIMITED CLINICAL INFORMATION: Diffuse abdominal pain. Distended gallbladder with possible wall thickening and pericholecystic fluid on CT. COMPARISON: CT abdomen and pelvis noncontrast 01/18/2021 TECHNIQUE: Real-time imaging of the right upper quadrant abdominal viscera. FINDINGS: PANCREAS: The pancreatic neck and body are normal in size and contour and echogenicity. There is no pancreatic ductal distention. The pancreatic tail is obscured by bowel gas and not imaged but unremarkable on CT earlier today. LIVER: Upper limits of normal size and smooth in contour. Parenchyma is homogeneous. No focal hepatic parenchymal lesion or intrahepatic ductal dilatation. GALLBLADDER: The gallbladder is distended within limits of normal, diameter 3.5 cm. There is a 2.4 cm mobile stone in the lumen along with tumefactive dependent sludge. The gallbladder wall is within normal thickness and there is no hyperemia in the wall on color Doppler or pericholecystic fluid. Negative sonographic Britton's sign. COMMON BILE DUCT: Normal in caliber measuring 0.5 cm in diameter. No choledocholithiasis. RIGHT KIDNEY: Right kidney measures 10.8 cm in length. There is no hydronephrosis or caliectasis or perinephric fluid. Normal renal parenchymal thickness and echogenicity. Nonobstructing renal calculus noted on CT not well visualized by ultrasound. FREE FLUID: None. US/US abdomen limited IMPRESSION: 1. Mobile gallstone 2.4 cm along with sludge in gallbladder lumen. No gallbladder wall thickening, or ductal dilatation, or pericholecystic fluid. 2. No right hydronephrosis or caliectasis.
--- NOTE | ~2021-01-18 | CT_ITS ---
EXAMINATION: CT ABDOMEN AND PELVIS WITHOUT CONTRAST CLINICAL INFORMATION: Diffuse abdominal pain. History urinary tract calculi, lung cancer. COMPARISON: CT chest, abdomen and pelvis noncontrast 01/10/2021 TECHNIQUE: Multidetector volumetric imaging was performed from the superior aspect of the liver through the pubic symphysis. No oral or intravenous contrast. Sagittal and coronal reformatted images were obtained on the technologist's workstation. This CT examination was performed using dose optimization techniques as appropriate, variously including the following: *Automated exposure control *Adjustment of mA and/or kV according to patient size (this includes techniques or standardized protocols for targeted exams where dose is matched to indication/reason for exam; i.e. extremities or head) *Use of iterative reconstruction technique DLP: 601 mGy-cm FINDINGS: LUNG BASES: Irregular nodule right base similar to recent CT. Subsegmental atelectasis left lateral base. No interval airspace consolidation or effusion. LIVER, GALLBLADDER, AND BILIARY TREE: The liver is normal in size and smooth in contour and homogeneous. No intrahepatic ductal dilatation or interval parenchymal lesion. The gallbladder is distended to 4.2 cm in diameter. There may be mild wall thickening with trace pericholecystic fluid. Common duct unremarkable. PANCREAS: Unremarkable. SPLEEN: Normal in size and homogeneous. Small splenule left upper quadrant. ADRENAL GLANDS: Unremarkable. KIDNEYS AND URETERS: Kidneys are normal in size and attenuation. There is no hydronephrosis, hydroureter, or interval perinephric stranding. Bilateral fine renal vascular calcifications are again seen. There is a small nonobstructing calculus again noted upper pole right kidney. There may be some fine parenchymal calcifications on the right as previously noted. No ureteral calculi. BLADDER: Unremarkable. GASTROINTESTINAL TRACT: No bowel obstruction or focal inflammatory changes in the bowel. Normal appendix. No generalized ascites or fluid collection. ABDOMINAL WALL: Diastases rectus, small bilateral fat-containing inguinal hernias. LYMPH NODES: No lymphadenopathy. VASCULAR: No acute abnormality. PELVIC VISCERA: Unremarkable. OSSEOUS STRUCTURES: Unremarkable. CT/CT abdomen pelvis wo con IMPRESSION: 1. Distended gallbladder. Suspect gallbladder wall thickening and possibly trace pericholecystic fluid. No visible gallstone or biliary ductal dilatation. Clinically correlate. Right upper quadrant ultrasound may be helpful for further assessment. 2. Nonobstructing right upper pole renal calculus similar to recent exam. No hydronephrosis or perinephric stranding. 3. No bowel obstruction or focal inflammatory changes in bowel. Normal appendix.
[2021-01-18 09:54] VITALS: BP 181/82; PULSE 70; RESP 18; TEMP 36.6; O2SAT 98; BMI 29.0
--- NOTE | 2021-01-18 10:18 | ED.ABDPAIN ---
HPI - Abdominal Pain General Chief Complaint: Abdominal Pain Stated Complaint: abdominal pain Time Seen by Provider: 01/18/21 10:03 Source: patient Mode of arrival: ambulatory Limitations: no limitations History of Present Illness HPI narrative: Patient comes to the emergency room complaining of diffuse abdominal pain that started approximately 2 days ago. Patient denies vomiting or diarrhea. Patient was recently diagnosed with lung cancer, states that he had a CT scan done on January 10, but he was not having any symptoms when the CT scan was done. Patient denies rectal bleeding, no UTI, denies chest pain or shortness of breath Related Data Home Medications Medication Instructions Recorded Confirmed amlodipine 10 mg tablet 10 mg PO BEDTIME 07/27/20 09/12/20 aspirin 81 mg tablet,delayed 81 mg PO DAILY 07/27/20 09/12/20 release atorvastatin 80 mg tablet 80 mg PO BEDTIME 07/27/20 09/12/20 cholecalciferol (vitamin D3) 25 25 mcg PO DAILY 07/27/20 09/12/20 mcg (1,000 unit) tablet furosemide 40 mg tablet 40 mg PO DAILY 07/27/20 09/12/20 glimepiride 4 mg tablet 4 mg PO DAILY 07/27/20 09/12/20 insulin aspar prot-insulin aspart 37 unit SUBCUT BEDTIME 07/27/20 09/12/20 100 unit/mL (70-30) subcutaneous pen (Novolog Mix 70-30FlexPen U-100) insulin aspar prot-insulin aspart 48 unit SUBCUT DAILY 07/27/20 09/12/20 100 unit/mL (70-30) subcutaneous pen (Novolog Mix 70-30FlexPen U-100) losartan 100 mg tablet 100 mg PO DAILY 07/27/20 09/12/20 metoprolol succinate 100 mg 150 mg PO DAILY 07/27/20 09/12/20 tablet,extended release 24 hr omeprazole 20 mg capsule,delayed 20 mg PO DAILY@0630 07/27/20 09/12/20 release ascorbic acid (vitamin C) 500 mg 500 mg PO DAILY 08/31/20 09/12/20 tablet docusate sodium 100 mg capsule 1 cap PO BID 08/31/20 09/12/20 gabapentin 100 mg capsule 1 cap PO BID 08/31/20 09/12/20 hydralazine 50 mg tablet 1 tab PO BID 08/31/20 09/12/20 hydrocodone 7.5 mg-acetaminophen 1 tab PO Q12H PRN 08/31/20 09/12/20 325 mg tablet polyethylene glycol 3350 17 gram 17 g PO DAILY 08/31/20 09/12/20 oral powder packet (Miralax) Allergies Allergy/AdvReac Type Severity Reaction Status Date / Time Penicillins [PENICILLINS] Allergy Intermediate RASH Verified 09/19/20 10:13 Review of Systems Review of Systems Constitutional : No Weight loss, No Fever, No Chills, No Night Sweats, No Fatigue, No Malaise ENT/Mouth : No Hearing loss, No Ear Pain, No Nasal Congestion, No Sinus Pain, No Hoarseness, No sore throat, No Rhinorrhea, No Swallowing Difficulty Eyes: No Eye Pain, No Swelling, No Redness, No Foreign Body, No Discharge, No Vision Changes Cardiovascular : No Chest Pain, No SOB, No Dyspnea on Exertion, No Orthopnea, No Edema, No Palpitations Respiratory : No Cough, No Sputum, No Wheezing, No Smoke Exposure, No Dyspnea Gastrointestinal : No Nausea, No Vomiting, No Diarrhea, complaining of diffuse abdominal pain, No Hematochezia, No Melena Genitourinary : no irregular bleeding, No Dysuria, No Urinary Frequency, No Hematuria, No Urinary Incontinence, No Urgency, No Flank Pain, No Urinary Flow Changes, No Hesitancy Musculoskeletal : No joint pain, No Myalgias, No Joint Swelling Skin : No Skin Lesions, No rash Neuro : No Weakness, No Numbness, No Paresthesias, No Loss of Consciousness, No Dizziness, No Headache Psych : No Anxiety/Panic, No Depression, No SI/HI/AH/VH, No Social Issues, Heme/Lymph: No Bruising, No Bleeding,No Lymphadenopathy Endocrine : No Polyuria, No Polydipsia, No Temperature Intolerance Physical Exam Vital Signs: Vital Signs: Last Vital Signs Temp 98.4 F 01/18/21 10:22 Pulse 98 01/18/21 14:31 Resp 16 01/18/21 14:31 BP 165/78 H 01/18/21 14:31 Pulse Ox 93 01/18/21 14:31 Body Mass Index 29.0 Const: Other: Appearance: Alert. Oriented X3. No acute distress. Eyes: Pupils equal, round and reactive to light. ENT: Pharynx normal. Neck: Normal inspection. Neck supple. No lymph nodes noted. No crepitus CVS: Normal heart rate and rhythm. Pulses normal. Normal S1 and S2 Respiratory: No respiratory distress. Breath sounds normal. No Wheezing. No rales Abdomen: Soft , pain to palpation in all quadrants, [id number] pain, mild distension, no guarding No rigidity. No distention. Skin: Skin warm and dry. Normal skin color. Normal skin turgor. Extremities: No lower extremity edema. No lower extremity edema. No Lacerations. No Rash Neuro: Oriented X 3. No motor deficit. No sensory deficit. Moving all extermities. No slurred speech. Course Course Course Narrative: Patient states that he feels well. I discussed the labs and imaging with Dr. Saucedo is from surgery. Patient can be discharged and follow-up as an outpatient. I tried to call the patient's significant other/friend. The call did not go through despite multiple attempts MDM - Abdominal Pain Lab Data Result diagrams: 01/18/21 10:27 01/18/21 10:27 Labs: Lab Results 01/18/21 01/18/21 01/18/21 Range/Units 10:27 10:27 10:27 WBC 12.1 H (4.8-10.8) X10*3/uL RBC 4.14 L (4.60-5.80) X10*6/uL Hgb 11.9 L (14.0-18.0) g/dl Hct 36.5 L (42-52) % MCV 88.2 (80-98) fL MCH 28.7 (27.0-33.0) pg MCHC 32.6 (31.0-36.0) g/dl RDW 13.7 (11.0-16.0) % Plt Count 224 (160-400) X10*3/uL MPV 11.2 (9.4-12.4) fL Immature Gran % (Auto) 0.3 (0.0-0.4) % Neut % (Auto) 81.5 H (45-73) % Lymph % (Auto) 12.3 L (20-40) % [place] % (Auto) 5.5 (2-11) % Eos % (Auto) 0.2 (0-4) % Baso % (Auto) 0.2 (0-2) % Lymph # (Auto) 1.5 (1.2-4.9) X10*3/uL [place] # (Auto) 0.7 (0.1-1.2) X10*3/uL Eos # (Auto) 0.0 (0.0-0.4) X10*3/uL Baso # (Auto) 0.0 (0.0-0.2) X10*3/uL Abs Immat Gran (auto) 0.04 H (0.00-0.03) X10*3/uL Absolute Neuts (auto) 9.9 H (2.0-8.3) X10*3/uL Absolute Nucleated RBC 0.000 (0.0-0.012) X10*3/uL Nucleated RBC % (auto) 0.0 (0.0-0.2) /100WBC Sodium 142 (135-145) mmol/L Potassium 4.5 (3.3-5.1) mmol/L Chloride 97 (96-108) mmol/L Carbon Dioxide 35 H (22-29) mmol/L Anion Gap 15 (12-20) BUN 31 H (9-16) mg/dL Creatinine 2.14 H (0.5-1.4) mg/dL Estim Creat Clear Calc 27.1 Estimated GFR 30 Random Glucose 314 H (60-115) mg/dL Calcium 9.6 (8.4-10.2) mg/dL Total Bilirubin 1.8 H (0.0-1.0) mg/dL Direct Bilirubin 1.3 H (0.0-0.5) mg/dL AST 149 H (5-37) U/L ALT 105 H (0-40) U/L Alkaline Phosphatase 316 H D (39-117) U/L Total Protein 7.3 (6.5-8.0) g/dL Albumin 4.0 (3.5-5.0) g/dL Lipase 37 (8-78) U/L Urine Color Urine Appearance Urine pH (5.0-8.0) Ur Specific [place] (1.005-1.025) Urine Protein (NEG-TRACE) MG/DL Urine Glucose (UA) (NEG) MG/DL Urine Ketones (NEG) MG/DL Urine Blood (NEG) Urine Nitrite (NEG) Ur Leukocyte Esterase (NEG) Urine RBC (0) /HPF Urine WBC (0-4) /HPF Ur Squamous Epith Cells /LPF Urine Bacteria /LPF 01/18/21 Range/Units 10:44 WBC (4.8-10.8) X10*3/uL RBC (4.60-5.80) X10*6/uL Hgb (14.0-18.0) g/dl Hct (42-52) % MCV (80-98) fL MCH (27.0-33.0) pg MCHC (31.0-36.0) g/dl RDW (11.0-16.0) % Plt Count (160-400) X10*3/uL MPV (9.4-12.4) fL Immature Gran % (Auto) (0.0-0.4) % Neut % (Auto) (45-73) % Lymph % (Auto) (20-40) % [place] % (Auto) (2-11) % Eos % (Auto) (0-4) % Baso % (Auto) (0-2) % Lymph # (Auto) (1.2-4.9) X10*3/uL [place] # (Auto) (0.1-1.2) X10*3/uL Eos # (Auto) (0.0-0.4) X10*3/uL Baso # (Auto) (0.0-0.2) X10*3/uL Abs Immat Gran (auto) (0.00-0.03) X10*3/uL Absolute Neuts (auto) (2.0-8.3) X10*3/uL Absolute Nucleated RBC (0.0-0.012) X10*3/uL Nucleated RBC % (auto) (0.0-0.2) /100WBC Sodium (135-145) mmol/L Potassium (3.3-5.1) mmol/L Chloride (96-108) mmol/L Carbon Dioxide (22-29) mmol/L Anion Gap (12-20) BUN (9-16) mg/dL Creatinine (0.5-1.4) mg/dL Estim Creat Clear Calc Estimated GFR Random Glucose (60-115) mg/dL Calcium (8.4-10.2) mg/dL Total Bilirubin (0.0-1.0) mg/dL Direct Bilirubin (0.0-0.5) mg/dL AST (5-37) U/L ALT (0-40) U/L Alkaline Phosphatase (39-117) U/L Total Protein (6.5-8.0) g/dL Albumin (3.5-5.0) g/dL Lipase (8-78) U/L Urine Color YELLOW Urine Appearance CLEAR Urine pH 7.0 (5.0-8.0) Ur Specific [place] 1.010 (1.005-1.025) Urine Protein 2+ H (NEG-TRACE) MG/DL Urine Glucose (UA) >=1000 H (NEG) MG/DL Urine Ketones 5 (NEG) MG/DL Urine Blood NEG (NEG) Urine Nitrite NEG (NEG) Ur Leukocyte Esterase NEG (NEG) Urine RBC 0-2 (0) /HPF Urine WBC 0-2 (0-4) /HPF Ur Squamous Epith Cells TRACE /LPF Urine Bacteria NONE /LPF Imaging Data CT scan - abdomen: Radiologist's impression: LUNG BASES: Irregular nodule right base similar to recent CT. Subsegmental atelectasis left lateral base. No interval airspace consolidation or effusion.? LIVER, GALLBLADDER, AND BILIARY TREE: The liver is normal in size and smooth in contour and homogeneous. No intrahepatic ductal dilatation or interval parenchymal lesion. The gallbladder is distended to 4.2 cm in diameter. There may be mild wall thickening with trace pericholecystic fluid. Common duct unremarkable.? PANCREAS: Unremarkable.? SPLEEN: Normal in size and homogeneous. Small splenule left upper quadrant.? ADRENAL GLANDS: Unremarkable.? KIDNEYS AND URETERS: Kidneys are normal in size and attenuation. There is no hydronephrosis, hydroureter, or interval perinephric stranding. Bilateral fine renal vascular calcifications are again seen. There is a small nonobstructing calculus again noted upper pole right kidney. There may be some fine parenchymal calcifications on the right as previously noted. No ureteral calculi.? BLADDER: Unremarkable.? GASTROINTESTINAL TRACT: No bowel obstruction or focal inflammatory changes in the bowel. Normal appendix. No generalized ascites or fluid collection.? ABDOMINAL WALL: Diastases rectus, small bilateral fat-containing inguinal hernias.? LYMPH NODES: No lymphadenopathy. VASCULAR: No acute abnormality. PELVIC VISCERA: Unremarkable.? OSSEOUS STRUCTURES: Unremarkable.? CT/CT abdomen pelvis wo con IMPRESSION: ? 1. Distended gallbladder. Suspect gallbladder wall thickening and possibly trace pericholecystic fluid. No visible gallstone or biliary ductal dilatation.? Clinically correlate. Right upper quadrant ultrasound may be helpful for further assessment. ? 2. Nonobstructing right upper pole renal calculus similar to recent exam. No hydronephrosis or perinephric stranding. ? 3. No bowel obstruction or focal inflammatory changes in bowel. Normal appendix. Discharge Plan Discharge Clinical Impression: Abdominal pain Patient Disposition: Home, Self-Care Instructions: Abdominal Pain (ED) Additional Instructions: You need to follow-up with surgery. If you continue having abdominal pain, it is possible you may need to have her gallbladder taken out (cholecystectomy). Please follow-up with your primary care physician tomorrow. If you have any worsening or new symptoms, please return to the emergency room or call 911 Prescriptions: No Action furosemide 40 mg Tablet 40 mg PO DAILY RF: 0 atorvastatin 80 mg Tablet 80 mg PO BEDTIME RF: 0 metoprolol succinate 100 mg Tablet Extended Release 24 Hr 150 mg PO DAILY RF: 0 aspirin 81 mg Tablet,Delayed Release (Dr/Ec) 81 mg PO DAILY RF: 0 amlodipine 10 mg Tablet 10 mg PO BEDTIME RF: 0 glimepiride 4 mg Tablet 4 mg PO DAILY RF: 0 omeprazole 20 mg Capsule,Delayed Release(Dr/Ec) 20 mg PO DAILY@0630 RF: 0 losartan 100 mg Tablet 100 mg PO DAILY RF: 0 insulin asp prt-insulin aspart [Novolog Mix 70-30FlexPen U-100] 100 unit/mL (70-30) Insulin Pen 48 unit SUBCUT DAILY RF: 0 insulin asp prt-insulin aspart [Novolog Mix 70-30FlexPen U-100] 100 unit/mL (70-30) Insulin Pen 37 unit SUBCUT BEDTIME RF: 0 cholecalciferol (vitamin D3) 25 mcg (1,000 unit) Tablet 25 mcg PO DAILY RF: 0 hydrocodone-acetaminophen 7.5-325 mg tablet 1 tab PO Q12H PRN (Reason: pain) RF: 0 docusate sodium 100 mg capsule 1 cap PO BID RF: 0 hydralazine 50 mg tablet 1 tab PO BID RF: 0 gabapentin 100 mg capsule 1 cap PO BID RF: 0 polyethylene glycol 3350 [Miralax] 17 gram Powder In Packet 17 g PO DAILY RF: 0 ascorbic acid (vitamin C) 500 mg Tablet 500 mg PO DAILY RF: 0 Referrals: Keith Saucedo MD [Physician] - 2 days [facility] Past Medical History Medical History COPD (chronic obstructive pulmonary disease) Diabetes HTN (hypertension) Hyperlipidemia Pneumonia Stroke Social History Social History (Updated 09/12/20 @ 14:35 by Krystyna Contreras) Household Members: Spouse Housing: House Alcohol intake: never Patient Tobacco Use Status: Never used Tobacco Cigarette Packs Per Day: 1 Use of substances other than those prescribed or required for medical reasons: No Advance Directives: Yes Advance Directives on File: Yes Advance Directives Date on File: 08/31/20 service: No Current occupational status: retired
[2021-01-18 10:22] VITALS: BP 173/65; PULSE 67; RESP 16; TEMP 36.9; O2SAT 97
[2021-01-18 10:33] LABS: MANUAL DIFF FLAG NO
[2021-01-18 10:34] LABS: Basophils Percent Auto 0.2 % (0-2); Eosinophils Percent Auto 0.2 % (0-4); Hematocrit 36.5 % (42-52); Hemoglobin 11.9 g/dl (14.0-18.0); Imm Gran Abs Auto 0.04 X10*3/uL (0.00-0.03); Imm Gran Pct Auto 0.3 % (0.0-0.4); Lymphocytes Absolute Auto 1.5 X10*3/uL (1.2-4.9); Lymphocytes Percent Auto 12.3 % (20-40); Mean Corpuscular HGB Conc 32.6 g/dl (31.0-36.0); Mean Corpuscular Hemoglobin 28.7 pg (27.0-33.0); Mean Corpuscular Volume 88.2 fL (80-98); Mean Platelet Volume 11.2 fL (9.4-12.4); Monocytes Absolute Auto 0.7 X10*3/uL (0.1-1.2); Monocytes Percent Auto 5.5 % (2-11); Neutrophils Absolute Auto 9.9 X10*3/uL (2.0-8.3); Neutrophils Percent Auto 81.5 % (45-73); Platelet Count 224 X10*3/uL (160-400); Red Blood Count 4.14 X10*6/uL (4.60-5.80); Red Cell Distribution Width 13.7 % (11.0-16.0); White Blood Count 12.1 X10*3/uL (4.8-10.8)
[2021-01-18 10:52] LABS: Glucose Urine UA >=1000 MG/DL (NEG); Leukocyte Esterase Urine NEG (NEG); Nitrite Urine NEG (NEG); UACC Culture Trigger NO; Urine Blood NEG (NEG); Urine Ketones 5 MG/DL (NEG); Urine Protein 2+ MG/DL (NEG-TRACE)
[2021-01-18 10:54] LABS: Appearance Urine CLEAR; Color Urine YELLOW
[2021-01-18 10:57] LABS: Anion Gap 15 (12-20); Blood Urea Nitrogen 31 mg/dL (9-16); Calcium 9.6 mg/dL (8.4-10.2); Carbon Dioxide 35 mmol/L (22-29); Chloride 97 mmol/L (96-108); Creatinine Clr Calc Pharmacy 27.1; Estimated Glomerular Filt Rate 30; Glucose Random 314 mg/dL (60-115); Potassium 4.5 mmol/L (3.3-5.1); Sodium 142 mmol/L (135-145)
[2021-01-18 10:59] LABS: Alanine Aminotransferase 105 U/L (0-40); Alkaline Phosphatase 316 U/L (39-117); Aspartate Amino Transferase 149 U/L (5-37); Bilirubin Direct 1.3 mg/dL (0.0-0.5); Bilirubin Total 1.8 mg/dL (0.0-1.0); Lipase 37 U/L (8-78); Total Protein 7.3 g/dL (6.5-8.0)
[2021-01-18 11:06] LABS: RBC Urine 0-2 /HPF (0); Squamous Epithelial Cell Urine TRACE /LPF; WBC Urine 0-2 /HPF (0-4)
[2021-01-18 11:53] VITALS: BP 148/63; PULSE 68; RESP 16; O2SAT 98
[2021-01-18] MEDS: 0.9 % Sodium Chloride 1,000 ML 999 ML IVCONT (11:53)
[2021-01-18 13:02] VITALS: BP 159/61; PULSE 70; RESP 16; O2SAT 98
[2021-01-18 14:31] VITALS: BP 165/78; PULSE 98; RESP 16; O2SAT 93
== END 2021-01-18 16:30 | disposition home or self-care (01) ==
PROVIDERS: Emergency Provider Emergency Medicine
DX: R10.9 Unspecified abdominal pain (principal); I10 Essential (primary) hypertension; E11.9 Type 2 diabetes mellitus without complications; Z85.118 Personal history of other malignant neoplasm of bronchus and lung; Z79.4 Long term (current) use of insulin; Z79.899 Other long term (current) drug therapy; Z79.02 Long term (current) use of antithrombotics/antiplatelets; Z86.73 Personal history of transient ischemic attack (TIA), and cerebral infarction without residual deficits
CPT/HCPCS: 36415; 74176; 76705; 80048; 80076; 81001; 83690; 85025; 96360; 99284

== ENCOUNTER 2021-03-07 00:06 | Emergency (ER) | payer MEDICARE, MEDICAID, SELFPAY ==
--- NOTE | ~2021-03-07 | CT_ITS ---
EXAMINATION: CT HEAD WITHOUT CONTRAST CLINICAL INFORMATION: Stroke protocol COMPARISON: 08/31/2020 TECHNIQUE: Contiguous axial imaging was performed from the skull base to vertex without intravenous contrast. This CT examination was performed using dose optimization techniques as appropriate, variously including the following: * Automated exposure control * Adjustment of mA and/or kV according to patient size (this includes techniques or standardized protocols for targeted exams where dose is matched to indication/reason for exam; i.e. extremities or head) Use of iterative reconstruction technique DLP: 726 mGy-cm. FINDINGS: There is no evidence of acute intracranial hemorrhage or territorial infarction. No abnormal mass effect or midline shift is seen. There is a chronic left parieto-occipital infarct. Waters to white matter differentiation is otherwise well preserved. No extra-axial fluid collections are identified. No hydrocephalus. Proportional prominence of the ventricles and sulcal spaces is consistent with moderate volume loss. Patchy periventricular and deep white matter hypoattenuation is consistent with moderate small vessel ischemic changes. The osseous structures and soft tissues are normal. The mastoid air cells and visualized portions of the paranasal sinuses are well aerated. CT/CT head for stroke IMPRESSION: No acute intracranial pathology. Chronic left parieto-occipital infarct. Chronic volume loss with small vessel ischemic change. This critical result was discussed with Carlos Guevara MD by telephone at 03/07/2021 12:23 AM and it was ascertained that the content and urgency of the report was understood at the time of direct communication.
--- NOTE | ~2021-03-07 | XR_ITS ---
EXAMINATION: XR CHEST CLINICAL INFORMATION: CVA COMPARISON: 10/13/2020 TECHNIQUE: Frontal view of the chest was obtained. FINDINGS: Cardiac leads overlie the chest. The lungs are well expanded. No consolidation, edema, or effusion. No pneumothorax. The cardiomediastinal silhouette is unchanged with a calcified aorta. XR/XR chest 1V IMPRESSION: No acute pulmonary finding.
--- NOTE | 2021-03-07 00:07 | ECG_ITS ---
Test Reason : STROKE? Blood Pressure : / mmHG Vent. Rate : 071 BPM Atrial Rate : 071 BPM P-R Int : 180 ms QRS Dur : 090 ms QT Int : 412 ms P-R-T Axes : 053 012 021 degrees QTc Int : 447 ms Sinus rhythm with occasional Premature ventricular complexes Otherwise normal ECG When compared with ECG of 31-AUG-2020 14:16, Premature ventricular complexes are now Present QT has lengthened Referred By: Carlos Guevara Electronically Signed By:WELLINGTON COOPER
[2021-03-07 00:13] LABS: Prothrombin Time Whole Bld POC 12.8 sec (11.1-13.5); ~PT, ~INR - Anti Coag Clinic 1.1 (0.9-1.1)
[2021-03-07 00:13] LABS: Glucose, Whole Blood 72 mg/dL (60-115)
--- NOTE | 2021-03-07 00:13 | ED_ITS ---
HPI - Neuro Symptoms/Deficit General Chief Complaint: Weakness Stated Complaint: Stroke Time Seen by Provider: 03/07/21 00:06 Source: patient and EMS Mode of arrival: EMS Limitations: no limitations History of Present Illness HPI Narrative: Patient has her diabetes hypertension history of CVA 07/30 left [employer] with full recovery with CTA neck negative was with family noticed that he has difficulty in expressing himself left facial droop no other deficit started about an hour prior to arrival. Patient's blood sugar noted to be 52 in the ER blood sugar was 72 when patient arrived was asymptomatic no speech problem or focal deficits noticed Related Data Home Medications Medication Instructions Recorded Confirmed amlodipine 10 mg tablet 10 mg PO BEDTIME 03/07/21 03/07/21 aspirin 81 mg tablet,delayed 81 mg PO QAM 03/07/21 03/07/21 release atorvastatin 80 mg tablet 80 mg PO BEDTIME 03/07/21 03/07/21 cholecalciferol (vitamin D3) 25 25 mcg PO QAM 03/07/21 03/07/21 mcg (1,000 unit) tablet furosemide 40 mg tablet 40 mg PO QAM 03/07/21 03/07/21 glimepiride 4 mg tablet 4 mg PO QAM 03/07/21 03/07/21 hydralazine 50 mg tablet 50 mg PO TID 03/07/21 03/07/21 insulin aspar prot-insulin aspart 37 unit SUBCUT BEDTIME 03/07/21 03/07/21 100 unit/mL (70-30) subcutaneous pen (Novolog Mix 70-30FlexPen U-100) insulin aspar prot-insulin aspart 48 unit SUBCUT QAM 03/07/21 03/07/21 100 unit/mL (70-30) subcutaneous pen (Novolog Mix 70-30FlexPen U-100) losartan 50 mg tablet 50 mg PO QAM 03/07/21 03/07/21 metoprolol succinate 50 mg 50 mg PO QAM 03/07/21 03/07/21 tablet,extended release 24 hr omeprazole 20 mg capsule,delayed 20 mg PO QAM 03/07/21 03/07/21 release Allergies Allergy/AdvReac Type Severity Reaction Status Date / Time Penicillins [PENICILLINS] Allergy Intermediate RASH Verified 09/19/20 10:13 Review of Systems Review of Systems: Yes all other systems are reviewed and are negative Neurologic: Denies Abnormal speech present PMFSH Past Medical History Medical History COPD (chronic obstructive pulmonary disease) Diabetes HTN (hypertension) Hyperlipidemia Pneumonia Stroke Social History Social History Household Members: Spouse Housing: House Alcohol intake: never Patient Tobacco Use Status: Never used Tobacco Cigarette Packs Per Day: 1 Advance Directives: Yes Advance Directives on File: Yes Advance Directives Date on File: 08/31/20 service: No Current occupational status: retired Physical Exam Vital Signs: Vital Signs: Last Vital Signs Temp 97.7 F 03/07/21 03:30 Pulse 73 03/07/21 03:30 Resp 16 03/07/21 04:52 BP 126/53 L 03/07/21 03:30 Pulse Ox 93 03/07/21 03:30 Body Mass Index 32.1 Const: General: healthy appearing, comfortable and no acute distress Nutritional Appearance: average body habitus Orientation/consciousness: patient oriented x3 HENMT: Head: Yes normal to inspection and Yes normocephalic Ears: hearing grossly normal bilaterally Eyes: General: appearance normal, both eyes and all related structures Pupils: Equal, round and reactive pupils present Neck: Neck: Yes normal visual inspection, Yes full ROM and Yes no lymphadenopathy Carotids: normal carotid upstroke Resp: Effort & Inspection: normal respiratory effort Auscultation: clear to auscultation bilaterally Cardio: Jugular venous distension: no JVD Palpation: normal PMI Rate: regular rate Rhythm: regular rhythm Heart sounds: S1 normal heart sound present and S2 normal heart sound present Peripheral pulses: Peripheral pulses 2+ throughout GI: Inspection: Yes normal to inspection Palpation (GI): Soft to palpation and nontender Auscultation: normal bowel sounds Back/Spine/Pelvis: Thoracic/Lumbar Spine: No thoracic spinal tenderness and No lumbar spinal tenderness Skin: General skin exam: no rashes or lesions noted Neuro: General: patient oriented x3, tone normal, moves all extremities, Normal light touch and pain sensation, no focal motor deficits and CN's II-XI intact bilaterally Cranial nerves: Yes CN's II-XII intact bilaterally and Yes Equal, round and reactive pupils present Speech: No Abnormal speech present Motor exam (neuro): 5/5 motor strength present throughout and Pronator motor function not present Course Reevaluation(s) Reevaluation #1: Patient case discussed with family was fine till 20:00 when son reached at 22:00 he found him a little confused EMS came blood sugar was 50 to give some orange juice when patient came to the ER was 72 during stay in the ER patient had some food and repeat blood sugar was 49 patient received 70/30 insulin 37 units in the evening usually given by the nurse. According to patient's family his sugar is very low he never gets blood sugar lower than 100. Likely the cause of symptoms is hypoglycemia will give him 3 dextrose 50 IV push and started on drip watch for some time Time: 02:03 MDM - Neuro Symptoms/Deficit MDM Narrative Medical decision making narrative: Patient with generalized weakness no focal deficit CT head is negative for any acute CVA noticed to have hyperglycemia , symptoms improved after hypoglycemia corrected patient had food in the ER and feeling much better back to normal no focal neurological deficit while in the ER. Case discussed with patient's family with patient take the patient home advised to follow with PCP Medical Records Attestation: I reviewed the patient's medical records. Lab Data Attestation: I reviewed the patient's lab results. Result diagrams: 03/07/21 00:15 03/07/21 00:15 Labs: Lab Results 03/07/21 03/07/21 03/07/21 Range/Units 00:08 00:10 00:15 WBC 12.1 H (4.8-10.8) X10*3/uL RBC 3.50 L (4.60-5.80) X10*6/uL Hgb 10.0 L (14.0-18.0) g/dl Hct 31.7 L (42-52) % MCV 90.6 (80-98) fL MCH 28.6 (27.0-33.0) pg MCHC 31.5 (31.0-36.0) g/dl RDW 14.6 (11.0-16.0) % Plt Count 267 (160-400) X10*3/uL MPV 10.9 (9.4-12.4) fL Immature Gran % (Auto) 0.2 (0.0-0.4) % Neut % (Auto) 73.0 (45-73) % Lymph % (Auto) 16.2 L (20-40) % [place] % (Auto) 7.0 (2-11) % Eos % (Auto) 3.2 (0-4) % Baso % (Auto) 0.4 (0-2) % Lymph # (Auto) 2.0 (1.2-4.9) X10*3/uL [place] # (Auto) 0.8 (0.1-1.2) X10*3/uL Eos # (Auto) 0.4 (0.0-0.4) X10*3/uL Baso # (Auto) 0.1 (0.0-0.2) X10*3/uL Abs Immat Gran (auto) 0.03 (0.00-0.03) X10*3/uL Absolute Neuts (auto) 8.8 H (2.0-8.3) X10*3/uL Absolute Nucleated RBC 0.000 (0.0-0.012) X10*3/uL Nucleated RBC % (auto) 0.0 (0.0-0.2) /100WBC PT (9.9-13.0) SEC Whole Blood PT 12.8 (11.1-13.5) sec INR (0.9-1.1) Whole Blood INR 1.1 (0.9-1.1) Sodium (135-145) mmol/L Potassium (3.3-5.1) mmol/L Chloride (96-108) mmol/L Carbon Dioxide (22-29) mmol/L Anion Gap (12-20) BUN (9-16) mg/dL Creatinine (0.5-1.4) mg/dL Estim Creat Clear Calc Estimated GFR POC Glucose 72 (60-115) mg/dL Random Glucose (60-115) mg/dL Calcium (8.4-10.2) mg/dL Troponin I High Sens (<3.5-35.0) ng/L B-Natriuretic Peptide (<100) pg/mL Urine Color Urine Appearance Urine pH (5.0-8.0) Ur Specific [place] (1.005-1.025) Urine Protein (NEG-TRACE) MG/DL Urine Glucose (UA) (NEG) MG/DL Urine Ketones (NEG) MG/DL Urine Blood (NEG) Urine Nitrite (NEG) Ur Leukocyte Esterase (NEG) Urine RBC (0) /HPF Urine WBC (0-4) /HPF Ur Squamous Epith Cells /LPF Urine Bacteria /LPF Granular Casts /LPF COVID-19 (SHANA) (Negative) COVID-19 Clin Com 03/07/21 03/07/21 03/07/21 Range/Units 00:15 00:15 00:30 WBC (4.8-10.8) X10*3/uL RBC (4.60-5.80) X10*6/uL Hgb (14.0-18.0) g/dl Hct (42-52) % MCV (80-98) fL MCH (27.0-33.0) pg MCHC (31.0-36.0) g/dl RDW (11.0-16.0) % Plt Count (160-400) X10*3/uL MPV (9.4-12.4) fL Immature Gran % (Auto) (0.0-0.4) % Neut % (Auto) (45-73) % Lymph % (Auto) (20-40) % [place] % (Auto) (2-11) % Eos % (Auto) (0-4) % Baso % (Auto) (0-2) % Lymph # (Auto) (1.2-4.9) X10*3/uL [place] # (Auto) (0.1-1.2) X10*3/uL Eos # (Auto) (0.0-0.4) X10*3/uL Baso # (Auto) (0.0-0.2) X10*3/uL Abs Immat Gran (auto) (0.00-0.03) X10*3/uL Absolute Neuts (auto) (2.0-8.3) X10*3/uL Absolute Nucleated RBC (0.0-0.012) X10*3/uL Nucleated RBC % (auto) (0.0-0.2) /100WBC PT 11.5 (9.9-13.0) SEC Whole Blood PT (11.1-13.5) sec INR 1.0 (0.9-1.1) Whole Blood INR (0.9-1.1) Sodium 144 (135-145) mmol/L Potassium 3.8 (3.3-5.1) mmol/L Chloride 106 (96-108) mmol/L Carbon Dioxide 24 (22-29) mmol/L Anion Gap 18 (12-20) BUN 24 H (9-16) mg/dL Creatinine 1.71 H (0.5-1.4) mg/dL Estim Creat Clear Calc 36.8 Estimated GFR 39 POC Glucose (60-115) mg/dL Random Glucose 68 D (60-115) mg/dL Calcium 9.3 (8.4-10.2) mg/dL Troponin I High Sens 8.5 (<3.5-35.0) ng/L B-Natriuretic Peptide 255 H (<100) pg/mL Urine Color Urine Appearance Urine pH (5.0-8.0) Ur Specific [place] (1.005-1.025) Urine Protein (NEG-TRACE) MG/DL Urine Glucose (UA) (NEG) MG/DL Urine Ketones (NEG) MG/DL Urine Blood (NEG) Urine Nitrite (NEG) Ur Leukocyte Esterase (NEG) Urine RBC (0) /HPF Urine WBC (0-4) /HPF Ur Squamous Epith Cells /LPF Urine Bacteria /LPF Granular Casts /LPF COVID-19 (SHANA) (Negative) COVID-19 Clin Com 03/07/21 03/07/21 03/07/21 Range/Units 00:48 01:57 02:31 WBC (4.8-10.8) X10*3/uL RBC (4.60-5.80) X10*6/uL Hgb (14.0-18.0) g/dl Hct (42-52) % MCV (80-98) fL MCH (27.0-33.0) pg MCHC (31.0-36.0) g/dl RDW (11.0-16.0) % Plt Count (160-400) X10*3/uL MPV (9.4-12.4) fL Immature Gran % (Auto) (0.0-0.4) % Neut % (Auto) (45-73) % Lymph % (Auto) (20-40) % [place] % (Auto) (2-11) % Eos % (Auto) (0-4) % Baso % (Auto) (0-2) % Lymph # (Auto) (1.2-4.9) X10*3/uL [place] # (Auto) (0.1-1.2) X10*3/uL Eos # (Auto) (0.0-0.4) X10*3/uL Baso # (Auto) (0.0-0.2) X10*3/uL Abs Immat Gran (auto) (0.00-0.03) X10*3/uL Absolute Neuts (auto) (2.0-8.3) X10*3/uL Absolute Nucleated RBC (0.0-0.012) X10*3/uL Nucleated RBC % (auto) (0.0-0.2) /100WBC PT (9.9-13.0) SEC Whole Blood PT (11.1-13.5) sec INR (0.9-1.1) Whole Blood INR (0.9-1.1) Sodium (135-145) mmol/L Potassium (3.3-5.1) mmol/L Chloride (96-108) mmol/L Carbon Dioxide (22-29) mmol/L Anion Gap (12-20) BUN (9-16) mg/dL Creatinine (0.5-1.4) mg/dL Estim Creat Clear Calc Estimated GFR POC Glucose 49 L* (60-115) mg/dL Random Glucose (60-115) mg/dL Calcium (8.4-10.2) mg/dL Troponin I High Sens (<3.5-35.0) ng/L B-Natriuretic Peptide (<100) pg/mL Urine Color YELLOW Urine Appearance CLEAR Urine pH 6.0 (5.0-8.0) Ur Specific [place] 1.020 (1.005-1.025) Urine Protein 1+ H (NEG-TRACE) MG/DL Urine Glucose (UA) NEG (NEG) MG/DL Urine Ketones NEG (NEG) MG/DL Urine Blood NEG (NEG) Urine Nitrite NEG (NEG) Ur Leukocyte Esterase NEG (NEG) Urine RBC 0 (0) /HPF Urine WBC 0-2 (0-4) /HPF Ur Squamous Epith Cells 1+ /LPF Urine Bacteria NONE /LPF Granular Casts 0-2 /LPF COVID-19 (SHANA) Negative (Negative) COVID-19 Clin Com See Note 03/07/21 03/07/21 Range/Units 03:38 04:44 WBC (4.8-10.8) X10*3/uL RBC (4.60-5.80) X10*6/uL Hgb (14.0-18.0) g/dl Hct (42-52) % MCV (80-98) fL MCH (27.0-33.0) pg MCHC (31.0-36.0) g/dl RDW (11.0-16.0) % Plt Count (160-400) X10*3/uL MPV (9.4-12.4) fL Immature Gran % (Auto) (0.0-0.4) % Neut % (Auto) (45-73) % Lymph % (Auto) (20-40) % [place] % (Auto) (2-11) % Eos % (Auto) (0-4) % Baso % (Auto) (0-2) % Lymph # (Auto) (1.2-4.9) X10*3/uL [place] # (Auto) (0.1-1.2) X10*3/uL Eos # (Auto) (0.0-0.4) X10*3/uL Baso # (Auto) (0.0-0.2) X10*3/uL Abs Immat Gran (auto) (0.00-0.03) X10*3/uL Absolute Neuts (auto) (2.0-8.3) X10*3/uL Absolute Nucleated RBC (0.0-0.012) X10*3/uL Nucleated RBC % (auto) (0.0-0.2) /100WBC PT (9.9-13.0) SEC Whole Blood PT (11.1-13.5) sec INR (0.9-1.1) Whole Blood INR (0.9-1.1) Sodium (135-145) mmol/L Potassium (3.3-5.1) mmol/L Chloride (96-108) mmol/L Carbon Dioxide (22-29) mmol/L Anion Gap (12-20) BUN (9-16) mg/dL Creatinine (0.5-1.4) mg/dL Estim Creat Clear Calc Estimated GFR POC Glucose 176 H 170 H (60-115) mg/dL Random Glucose (60-115) mg/dL Calcium (8.4-10.2) mg/dL Troponin I High Sens (<3.5-35.0) ng/L B-Natriuretic Peptide (<100) pg/mL Urine Color Urine Appearance Urine pH (5.0-8.0) Ur Specific [place] (1.005-1.025) Urine Protein (NEG-TRACE) MG/DL Urine Glucose (UA) (NEG) MG/DL Urine Ketones (NEG) MG/DL Urine Blood (NEG) Urine Nitrite (NEG) Ur Leukocyte Esterase (NEG) Urine RBC (0) /HPF Urine WBC (0-4) /HPF Ur Squamous Epith Cells /LPF Urine Bacteria /LPF Granular Casts /LPF COVID-19 (SHANA) (Negative) COVID-19 Clin Com NIH Stroke Scale Internal: Initial- Upon Arrival Level of Consciousness: Alert Level of Consciousness Questions: Answers both questions correctly Level of Consciousness Commands: Performs both tasks correctly Best Gaze: Normal Visual: No visual loss Facial Palsy: Normal Motor Arm (Right): No drift Motor Arm (Left): No drift Motor Leg (Right): No drift Motor Leg (Left): No drift Limb Ataxia: Absent Sensory: Normal Best Language: No aphasia Dysarthia: Normal Extinction and Inattention: No abnormality Score: 0 Discharge Plan Discharge Clinical Impression: Hypoglycemia, Acute alteration in mental status Patient Disposition: Home, Self-Care Instructions: Hypoglycemia in a Person with Diabetes (ED) Additional Instructions: Eat well while taking insulin Check blood sugar at least 2 to 3 times a day Continue other medications and follow with PCP Prescriptions: No Action losartan 50 mg tablet 50 mg PO QAM RF: 0 furosemide 40 mg tablet 40 mg PO QAM RF: 0 atorvastatin 80 mg tablet 80 mg PO BEDTIME RF: 0 metoprolol succinate 50 mg tablet extended release 24 hr 50 mg PO QAM RF: 0 aspirin 81 mg tablet,delayed release (DR/EC) 81 mg PO QAM RF: 0 amlodipine 10 mg tablet 10 mg PO BEDTIME RF: 0 glimepiride 4 mg tablet 4 mg PO QAM RF: 0 omeprazole 20 mg capsule,delayed release(DR/EC) 20 mg PO QAM RF: 0 hydralazine 50 mg tablet 50 mg PO TID RF: 0 insulin asp prt-insulin aspart [Novolog Mix 70-30FlexPen U-100] 100 unit/mL (70-30) insulin pen 48 unit subcut QAM RF: 0 cholecalciferol (vitamin D3) 25 mcg (1,000 unit) tablet 25 mcg PO QAM RF: 0 insulin asp prt-insulin aspart [Novolog Mix 70-30FlexPen U-100] 100 unit/mL (70-30) insulin pen 37 unit subcut BEDTIME RF: 0
[2021-03-07 00:20] VITALS: BP 142/65; PULSE 74; RESP 20; TEMP 36.5; O2SAT 97; BMI 32.1
[2021-03-07 00:23] LABS: MANUAL DIFF FLAG NO
[2021-03-07 00:24] LABS: Basophils Absolute Auto 0.1 X10*3/uL (0.0-0.2); Basophils Percent Auto 0.4 % (0-2); Eosinophils Absolute Auto 0.4 X10*3/uL (0.0-0.4); Eosinophils Percent Auto 3.2 % (0-4); Hematocrit 31.7 % (42-52); Imm Gran Abs Auto 0.03 X10*3/uL (0.00-0.03); Imm Gran Pct Auto 0.2 % (0.0-0.4); Lymphocytes Percent Auto 16.2 % (20-40); Mean Corpuscular HGB Conc 31.5 g/dl (31.0-36.0); Mean Corpuscular Hemoglobin 28.6 pg (27.0-33.0); Mean Corpuscular Volume 90.6 fL (80-98); Mean Platelet Volume 10.9 fL (9.4-12.4); Monocytes Absolute Auto 0.8 X10*3/uL (0.1-1.2); Neutrophils Absolute Auto 8.8 X10*3/uL (2.0-8.3); Platelet Count 267 X10*3/uL (160-400); Red Cell Distribution Width 14.6 % (11.0-16.0); White Blood Count 12.1 X10*3/uL (4.8-10.8)
--- NOTE | 2021-03-07 00:29 | PC.NURSE ---
at bedside for eval.
[2021-03-07 00:40] LABS: Prothrombin Time 11.5 SEC (9.9-13.0)
--- NOTE | 2021-03-07 00:41 | PC.NURSE ---
This RN at bedside, attempting to complete Med Rec with pt and photography manager. Pt completely unaware of what home medications he is taking. Per pt, noone at home to call and verify medications. This RN completing Med Rec from recent refills, pt noted to be allegedly taking multiple antihypertensives, pt unable to confirm.
[2021-03-07 00:43] LABS: Anion Gap 18 (12-20); Blood Urea Nitrogen 24 mg/dL (9-16); Calcium 9.3 mg/dL (8.4-10.2); Carbon Dioxide 24 mmol/L (22-29); Chloride 106 mmol/L (96-108); Creatinine Clr Calc Pharmacy 36.8; Estimated Glomerular Filt Rate 39; Glucose Random 68 mg/dL (60-115); Potassium 3.8 mmol/L (3.3-5.1); Sodium 144 mmol/L (135-145)
[2021-03-07 00:51] LABS: Troponin-I High Sensitivity 8.5 ng/L (<3.5-35.0)
--- NOTE | 2021-03-07 00:52 | PC.NURSE ---
PT's son called for update. PT consented to this nurse speaking with him. Son was informed that his father would be held overnight. Labs and CT pending.
[2021-03-07 01:01] LABS: B Type Natriuretic Peptide 255 pg/mL (<100)
[2021-03-07 01:07] LABS: COVID-19 Test Negative (Negative); IDNOW Serial# 08D9AD1C
[2021-03-07 01:14] LABS: Stroke Lab Use COMPLETE
--- NOTE | 2021-03-07 01:28 | PC.NURSE ---
Per MD, provide pt with food/drink and recheck POC in 1 hour.
[2021-03-07 02:01] LABS: Glucose, Whole Blood 49 mg/dL (60-115)
[2021-03-07] MEDS: Dextrose 5 % and 0.45 % NaCl 1,000 ML 100 ML IVCONT (02:06)
--- NOTE | 2021-03-07 02:10 | PC.NURSE ---
PT POC was rechecked, found to be 49 mg/dL. PT is mentating well, eating food at the bed side when prompted. PT medicated per AUG. Plan is to hold PT overnight until blood sugar stabilizes.
[2021-03-07 02:14] VITALS: BP 161/66; PULSE 76; RESP 16; O2SAT 95
--- NOTE | 2021-03-07 02:29 | PC.NURSE ---
PT used urinal in bed to provide urine sample.
[2021-03-07 02:37] LABS: Appearance Urine CLEAR; Color Urine YELLOW; Glucose Urine UA NEG (NEG); Leukocyte Esterase Urine NEG (NEG); Nitrite Urine NEG (NEG); UACC Culture Trigger NO; Urine Blood NEG (NEG); Urine Ketones NEG (NEG); Urine Protein 1+ MG/DL (NEG-TRACE)
[2021-03-07 02:45] LABS: Granular Casts Urine 0-2 /LPF; RBC Urine 0 /HPF (0); Squamous Epithelial Cell Urine 1+ /LPF; WBC Urine 0-2 /HPF (0-4)
[2021-03-07 03:30] VITALS: BP 126/53; PULSE 73; RESP 15; TEMP 36.5; O2SAT 93
[2021-03-07 03:43] LABS: Glucose, Whole Blood 176 mg/dL (60-115)
--- NOTE | 2021-03-07 04:13 | PC.NURSE ---
Family calling for an update. Per MD, plan to pause drip and recheck POC in 30 minutes. Family to be called for updated plan.
[2021-03-07 04:49] LABS: Glucose, Whole Blood 170 mg/dL (60-115)
[2021-03-07 04:52] VITALS: RESP 16
--- NOTE | 2021-03-07 06:11 | PC.NURSE ---
This RN calling family for transport home. Son, Flex not answering the phone at this time.
[2021-03-07 06:14] VITALS: BP 162/74; PULSE 75; RESP 16; TEMP 36.8; O2SAT 96
[2021-03-07 06:17] LABS: Glucose, Whole Blood 164 mg/dL (60-115)
== END 2021-03-07 06:31 | disposition home or self-care (01) ==
PROVIDERS: Emergency Provider Internal Medicine
DX: E11.649 Type 2 diabetes mellitus with hypoglycemia without coma (principal); J44.9 Chronic obstructive pulmonary disease, unspecified; I10 Essential (primary) hypertension; R29.700 NIHSS score 0; F17.210 Nicotine dependence, cigarettes, uncomplicated; Z20.822 Contact with and (suspected) exposure to COVID-19; Z71.6 Tobacco abuse counseling; Z79.899 Other long term (current) drug therapy; Z79.82 Long term (current) use of aspirin; Z86.73 Personal history of transient ischemic attack (TIA), and cerebral infarction without residual deficits
CPT/HCPCS: 36415; 70450; 71045; 80048; 81001; 82947; 83880; 84484; 85025; 85610; 87635; 93005; 96365; 96366; 96375; 99284; 99285

== ENCOUNTER → 2021-04-06 10:26 | Outpatient (BNVA) | payer MEDICARE, MEDICAID, SELFPAY | PROVIDERS: Visit Provider Surgery | DX: C34.91 Malignant neoplasm of unspecified part of right bronchus or lung (principal); R91.8 Other nonspecific abnormal finding of lung field; Z79.899 Other long term (current) drug therapy; Z79.82 Long term (current) use of aspirin; Z79.4 Long term (current) use of insulin; F03.90 Unspecified dementia, unspecified severity, without behavioral disturbance, psychotic disturbance, mood disturbance, and anxiety; Z87.891 Personal history of nicotine dependence; Z86.73 Personal history of transient ischemic attack (TIA), and cerebral infarction without residual deficits | CPT/HCPCS: 99212 ==

== ENCOUNTER 2021-04-29 10:07 | Inpatient (IN) | payer MEDICARE, MEDICAID, SELFPAY ==
[2021-04-29] VITALS (8 sets, daily range): BP systolic 124–167; BP diastolic 55–89; PULSE 60–68; RESP 16–19; TEMP 36.3–36.9; O2SAT 95–98; BMI 33.3
--- NOTE | ~2021-04-29 | US_ITS ---
EXAMINATION: US VENOUS ULTRASOUND WITH DOPPLER LOWER EXTREMITY, BILATERAL CLINICAL INFORMATION: Pain and edema COMPARISON: 09.01.2016 TECHNIQUE: Ultrasound of the deep veins is performed from the hip to the calf with compression sonography and color and pulse Doppler assessment. Spectral analysis with color-flow imaging is performed. FINDINGS: RIGHT: There is normal venous compression and respiratory variation and augmented flow. The visualized common femoral vein, superficial femoral vein, profunda femoral vein, popliteal vein, and the trifurcation region shows no evidence of deep venous thrombosis. There is no significant popliteal fossa cyst. LEFT: There is normal venous compression and respiratory variation and augmented flow. The visualized common femoral vein, superficial femoral vein, profunda femoral vein, popliteal vein, and the trifurcation region shows no evidence of deep venous thrombosis. There is no significant popliteal fossa cyst. If the patient's symptoms persist, followup ultrasound in 5 days 7 days might be of value to exclude proximal propagation from a non-visualized calf vein. US/US venous duplex LE BI IMPRESSION: No DVT demonstrated in the bilateral lower extremities.
--- NOTE | ~2021-04-29 | XR_ITS ---
EXAMINATION: XR CHEST CLINICAL INFORMATION: Lower extremity edema. History of lung cancer. COMPARISON: Chest x-rays of 03/07/2021, 10/13/2020, chest CT of 01/10/2021. Lung biopsy CT of 10/13/2020. TECHNIQUE: 2 views of the chest were obtained. FINDINGS: The cardiomediastinal silhouette is unchanged with upper limits of normal cardiac size. No abnormal tracheal deviation. Right lung nodules seen on the CT scan are not well appreciated by plain radiographs. Faint 1.2 cm nodular opacity in the right mid lung zone laterally likely corresponds to the right upper lobe lung nodule seen on the CT scan. Spiculated right lower lobe lung mass is not as discretely seen, however, there might be an ill-defined density in the region on the chest radiographs at the lung base. No new airspace opacities are noted. No pleural effusions, pulmonary edema or pneumothorax. No acute osseous abnormality. Osteopenia of the spine. Visualized upper abdomen is unremarkable. XR/XR chest 2V IMPRESSION: No radiographic evidence of pulmonary edema. No acute pulmonary process. Known right lung nodules are not as discretely seen on plain radiographs.
--- NOTE | 2021-04-29 12:00 | ED_ITS ---
HPI - General Adult General Chief complaint: General Medical Stated complaint: legs, hands, feet swollen Time Seen by Provider: 04/29/21 11:40 Source: patient Mode of arrival: ambulatory Limitations: no limitations History of Present Illness HPI narrative: 80-year-old male with a history of dementia,CVA, COPD, ravinder nocarcinoma of the right lung (has not yet had PET scan for staging), diabetes on insulin, HTN who presents to the ER for evaluation of swelling of his lower extremities and hands. He is a poor historian given his dementia. Upon review of his medication list it appears he is on Lasix 40 mg daily. Last ECHO showed a normal EF. he does not know how long his legs have been swollen for. He states he is walking normally even with the swelling. He denies any shortness of breath or chest pain, no orthopnea or or dyspnea on exertion. No fever or chills. No family at the bedside to assist in obtaining an acccurate history. MD complaint: worsening LE edema Onset (ago): unknown Location: left, right and lower extremity Radiation: proximal Severity: moderate Quality: aching Relieving factors: none Exacerbating factors: none Associated symptoms: denies other symptoms Treatments prior to arrival: none Related Data Home Medications Medication Instructions Recorded Confirmed amlodipine 10 mg tablet 10 mg PO BEDTIME 03/07/21 04/29/21 aspirin 81 mg tablet,delayed 81 mg PO QAM 03/07/21 04/29/21 release atorvastatin 80 mg tablet 80 mg PO BEDTIME 03/07/21 04/29/21 cholecalciferol (vitamin D3) 25 25 mcg PO QAM 03/07/21 04/29/21 mcg (1,000 unit) tablet furosemide 40 mg tablet 40 mg PO QAM 03/07/21 04/29/21 glimepiride 4 mg tablet 4 mg PO QAM 03/07/21 04/29/21 hydralazine 50 mg tablet 50 mg PO BID 03/07/21 04/29/21 insulin aspar prot-insulin aspart 37 unit SUBCUT 1630 03/07/21 04/29/21 100 unit/mL (70-30) subcutaneous pen (Novolog Mix 70-30FlexPen U-100) insulin aspar prot-insulin aspart 48 unit SUBCUT QAM 03/07/21 04/29/21 100 unit/mL (70-30) subcutaneous pen (Novolog Mix 70-30FlexPen U-100) losartan 50 mg tablet 50 mg PO QAM 03/07/21 04/29/21 metoprolol succinate 50 mg 50 mg PO QAM 03/07/21 04/29/21 tablet,extended release 24 hr omeprazole 20 mg capsule,delayed 20 mg PO QAM 03/07/21 04/29/21 release Allergies Allergy/AdvReac Type Severity Reaction Status Date / Time Penicillins [PENICILLINS] Allergy Intermediate RASH Verified 04/06/21 10:59 Review of Systems Review of Systems: Constitutional: No Fever, No Chills ENT/Mouth: No sore throat, No Rhinorrhea, No Swallowing Difficulty Cardiovascular: No Chest Pain, No SOB, No Orthopnea, + Edema Respiratory: No Cough, No Sputum, No Wheezing, No dyspnea Gastrointestinal: No Nausea, No Vomiting, No Diarrhea, No abdominal Pain Genitourinary: No Dysuria, No Urinary Frequency, No Hematuria Musculoskeletal: No joint pain, No Myalgias Skin: No Skin Lesions, No rash Neuro: No Weakness, No Numbness, No Dizziness, No Headache Psych: No Anxiety/Panic, No Depression Heme/Lymph: No Bruising, No Lymphadenopathy Endocrine: No Polyuria, No Polydipsia FOR[facility]LY [facility], [facility] Past Medical History Medical History COPD (chronic obstructive pulmonary disease) Dementia Diabetes Former smoker, stopped smoking in distant past History of CVA (cerebrovascular accident) (~07/2020) HTN (hypertension) Hyperlipidemia Pneumonia Surgical History History of lung biopsy (~10/2020) Social History Social History Household Members: Spouse Housing: House Alcohol intake: never Patient Tobacco Use Status: Never used Tobacco Cigarette Packs Per Day: 1 Use of substances other than those prescribed or required for medical reasons: No Advance Directives: No Advance Directives Date on File: 08/31/20 service: No Current occupational status: retired Physical Exam Vital Signs: Vital Signs: Last Vital Signs Temp 98.2 F 04/29/21 12:19 Pulse 68 04/29/21 14:23 Resp 16 04/29/21 14:23 BP 155/67 H 04/29/21 14:23 Pulse Ox 95 04/29/21 14:23 Body Mass Index 33.3 Appearance: Alert. Oriented X2. No acute distress. Eyes: Pupils equal, round and reactive to light. ENT: Pharynx normal. Neck: Normal inspection. Neck supple. CVS: Normal heart rate and rhythm. Pulses normal. Respiratory: No respiratory distress. Breath sounds normal. Abdomen: Soft and nontender. +BS x4 Skin: Skin warm and dry. Normal skin color. Normal skin turgor. No rashes. Extremities: 3+ pitting lower extremity edema from feet to below the knee bilaterally. 2+ dependent edema of the thighs as well. Excoriations on the anterior moeller bilaterally worse on the left than the right. No surrounding erythema or warmth to suggest cellulitis. He does have bilateral calf tenderness. Neuro: Oriented X 2. No motor deficit. No sensory deficit. Answers questions appropriately with poor memory. Course Course Course Narrative: 80-year-old male with a history of COPD, stroke, dementia, adenocarcinoma of the right lung who is not currently been staged or started on any treatment presents to the ER with worsening lower extremity edema for unknown amount of time. He is on Lasix at baseline. His edema is pitting bilaterally with slightly worse swelling on the left side. No signs of an infection. Concern for possible DVT given his active malignancy. Will get lower extremity Dopplers to rule out deep vein thrombosis. Will also get basic lab workup including BNP. Chest x-ray also ordered to assess for pulmonary edema. Reevaluation(s) Reevaluation #1: BNP 586 up from prior 255 in February. CXR is clear. Given his significant pitting edema he will likely require IV diuresis. Will give dose of IV lasix 80 mg now, PO KCl and monitor UOP. LE dopplers pending. Reevaluation #2: LE dopplers are negative for DVT. Will plan for admission for IV diuresis. Patient agreeable with plan. Medical Decision Making Lab Data Result diagrams: 04/29/21 12:13 04/29/21 12:13 Labs: Lab Results 04/29/21 04/29/21 04/29/21 Range/Units 12:13 12:13 12:13 WBC 9.0 (4.8-10.8) X10*3/uL RBC 3.38 L (4.60-5.80) X10*6/uL Hgb 9.9 L (14.0-18.0) g/dl Hct 31.0 L (42.0-52.0) % MCV 91.7 (80.0-98.0) fL MCH 29.3 (27.0-33.0) pg MCHC 31.9 (31.0-36.0) g/dl RDW 15.0 (11.0-16.0) % Plt Count 213 (160-400) X10*3/uL MPV 10.8 (9.4-12.4) fL Immature Gran % (Auto) 0.4 (0.0-0.4) % Neut % (Auto) 62.7 (45-73) % Lymph % (Auto) 25.0 (20-40) % [place] % (Auto) 7.3 (2-11) % Eos % (Auto) 4.2 H (0-4) % Baso % (Auto) 0.4 (0-2) % Lymph # (Auto) 2.2 (1.2-4.9) X10*3/uL [place] # (Auto) 0.7 (0.1-1.2) X10*3/uL Eos # (Auto) 0.4 (0.0-0.4) X10*3/uL Baso # (Auto) 0.0 (0.0-0.2) X10*3/uL Abs Immat Gran (auto) 0.04 H (0.00-0.03) X10*3/uL Absolute Neuts (auto) 5.6 (2.0-8.3) x10*3/uL Absolute Nucleated RBC 0.000 (0.0-0.012) X10*3/uL Nucleated RBC % (auto) 0.0 (0.0-0.2) /100WBC Sodium 142 (135-145) mmol/L Potassium 3.8 (3.3-5.1) mmol/L Chloride 104 (96-108) mmol/L Carbon Dioxide 31 H (22-29) mmol/L Anion Gap 11 L (12-20) BUN 16 (9-16) mg/dL Creatinine 1.24 (0.5-1.4) mg/dL Estim Creat Clear Calc 48.3 Estimated GFR 56 Random Glucose 284 H D (60-115) mg/dL Calcium 9.1 (8.4-10.2) mg/dL Magnesium 1.9 (1.6-2.6) mg/dL Total Bilirubin 0.5 (0.0-1.0) mg/dL Direct Bilirubin 0.2 (0.0-0.5) mg/dL AST 13 D (5-37) U/L ALT 14 (0-40) U/L Alkaline Phosphatase 104 D (39-117) U/L B-Natriuretic Peptide 586 H (<100) pg/mL Total Protein 6.5 (6.5-8.0) g/dL Albumin 3.6 (3.5-5.0) g/dL Urine Color Urine Appearance Urine pH (5.0-8.0) Ur Specific Rinard (1.005-1.025) Urine Protein (NEG-TRACE) MG/DL Urine Glucose (UA) (NEG) MG/DL Urine Ketones (NEG) MG/DL Urine Blood (NEG) Urine Nitrite (NEG) Ur Leukocyte Esterase (NEG) Urine RBC (0) /HPF Urine WBC (0-4) /HPF Ur Squamous Epith Cells /LPF Urine Bacteria COVID-19 (SHANA) (Negative) COVID-19 Clin Com 04/29/21 04/29/21 Range/Units 12:36 14:09 WBC (4.8-10.8) X10*3/uL RBC (4.60-5.80) X10*6/uL Hgb (14.0-18.0) g/dl Hct (42.0-52.0) % MCV (80.0-98.0) fL MCH (27.0-33.0) pg MCHC (31.0-36.0) g/dl RDW (11.0-16.0) % Plt Count (160-400) X10*3/uL MPV (9.4-12.4) fL Immature Gran % (Auto) (0.0-0.4) % Neut % (Auto) (45-73) % Lymph % (Auto) (20-40) % [place] % (Auto) (2-11) % Eos % (Auto) (0-4) % Baso % (Auto) (0-2) % Lymph # (Auto) (1.2-4.9) X10*3/uL [place] # (Auto) (0.1-1.2) X10*3/uL Eos # (Auto) (0.0-0.4) X10*3/uL Baso # (Auto) (0.0-0.2) X10*3/uL Abs Immat Gran (auto) (0.00-0.03) X10*3/uL Absolute Neuts (auto) (2.0-8.3) x10*3/uL Absolute Nucleated RBC (0.0-0.012) X10*3/uL Nucleated RBC % (auto) (0.0-0.2) /100WBC Sodium (135-145) mmol/L Potassium (3.3-5.1) mmol/L Chloride (96-108) mmol/L Carbon Dioxide (22-29) mmol/L Anion Gap (12-20) BUN (9-16) mg/dL Creatinine (0.5-1.4) mg/dL Estim Creat Clear Calc Estimated GFR Random Glucose (60-115) mg/dL Calcium (8.4-10.2) mg/dL Magnesium (1.6-2.6) mg/dL Total Bilirubin (0.0-1.0) mg/dL Direct Bilirubin (0.0-0.5) mg/dL AST (5-37) U/L ALT (0-40) U/L Alkaline Phosphatase (39-117) U/L B-Natriuretic Peptide (<100) pg/mL Total Protein (6.5-8.0) g/dL Albumin (3.5-5.0) g/dL Urine Color YELLOW Urine Appearance CLEAR Urine pH 6.0 (5.0-8.0) Ur Specific Rinard 1.020 (1.005-1.025) Urine Protein 2+ H (NEG-TRACE) MG/DL Urine Glucose (UA) 500 H (NEG) MG/DL Urine Ketones NEG (NEG) MG/DL Urine Blood NEG (NEG) Urine Nitrite NEG (NEG) Ur Leukocyte Esterase NEG (NEG) Urine RBC 0 (0) /HPF Urine WBC 0 (0-4) /HPF Ur Squamous Epith Cells TRACE /LPF Urine Bacteria Not Reportable COVID-19 (SHANA) Negative (Negative) COVID-19 Clin Com See Note ECG Data Attestation: I personally reviewed and interpreted this ECG as follows: Prior ECG tracings: available for review Interpretation: sinus rhythm with frequent PVCs in a pattern of bigeminy, heart rate 64 beats per minute, IN interval normal 186 ms, no ST segment elevation or depression Discharge Plan Discharge Clinical Impression: Volume overload Patient Disposition: Admitted As Inpatient Prescriptions: No Action losartan 50 mg tablet 50 mg PO QAM RF: 0 furosemide 40 mg tablet 40 mg PO QAM RF: 0 atorvastatin 80 mg tablet 80 mg PO BEDTIME RF: 0 metoprolol succinate 50 mg tablet extended release 24 hr 50 mg PO QAM RF: 0 aspirin 81 mg tablet,delayed release (DR/EC) 81 mg PO QAM RF: 0 amlodipine 10 mg tablet 10 mg PO BEDTIME RF: 0 glimepiride 4 mg tablet 4 mg PO QAM RF: 0 omeprazole 20 mg capsule,delayed release(DR/EC) 20 mg PO QAM RF: 0 hydralazine 50 mg tablet 50 mg PO BID RF: 0 insulin asp prt-insulin aspart [Novolog Mix 70-30FlexPen U-100] 100 unit/mL (70-30) insulin pen 48 unit subcut QAM RF: 0 cholecalciferol (vitamin D3) 25 mcg (1,000 unit) tablet 25 mcg PO QAM RF: 0 insulin asp prt-insulin aspart [Novolog Mix 70-30FlexPen U-100] 100 unit/mL (70-30) insulin pen 37 unit subcut 1630 RF: 0
[2021-04-29 12:18] LABS: MANUAL DIFF FLAG NO
[2021-04-29 12:19] LABS: Basophils Percent Auto 0.4 % (0-2); Eosinophils Absolute Auto 0.4 X10*3/uL (0.0-0.4); Eosinophils Percent Auto 4.2 % (0-4); Hemoglobin 9.9 g/dl (14.0-18.0); Imm Gran Abs Auto 0.04 X10*3/uL (0.00-0.03); Imm Gran Pct Auto 0.4 % (0.0-0.4); Lymphocytes Absolute Auto 2.2 X10*3/uL (1.2-4.9); Mean Corpuscular HGB Conc 31.9 g/dl (31.0-36.0); Mean Corpuscular Hemoglobin 29.3 pg (27.0-33.0); Mean Corpuscular Volume 91.7 fL (80.0-98.0); Mean Platelet Volume 10.8 fL (9.4-12.4); Monocytes Absolute Auto 0.7 X10*3/uL (0.1-1.2); Monocytes Percent Auto 7.3 % (2-11); Neutrophils Absolute Auto 5.6 x10*3/uL (2.0-8.3); Neutrophils Percent Auto 62.7 % (45-73); Platelet Count 213 X10*3/uL (160-400); Red Blood Count 3.38 X10*6/uL (4.60-5.80)
[2021-04-29 12:39] LABS: Alanine Aminotransferase 14 U/L (0-40); Albumin Level 3.6 g/dL (3.5-5.0); Alkaline Phosphatase 104 U/L (39-117); Anion Gap 11 (12-20); Aspartate Amino Transferase 13 U/L (5-37); Bilirubin Direct 0.2 mg/dL (0.0-0.5); Bilirubin Total 0.5 mg/dL (0.0-1.0); Blood Urea Nitrogen 16 mg/dL (9-16); Calcium 9.1 mg/dL (8.4-10.2); Carbon Dioxide 31 mmol/L (22-29); Chloride 104 mmol/L (96-108); Creatinine Clr Calc Pharmacy 48.3; Estimated Glomerular Filt Rate 56; Glucose Random 284 mg/dL (60-115); Magnesium 1.9 mg/dL (1.6-2.6); Potassium 3.8 mmol/L (3.3-5.1); Sodium 142 mmol/L (135-145); Total Protein 6.5 g/dL (6.5-8.0)
[2021-04-29 12:40] LABS: B Type Natriuretic Peptide 586 pg/mL (<100)
[2021-04-29 12:44] LABS: Appearance Urine CLEAR; Color Urine YELLOW; Glucose Urine UA 500 MG/DL (NEG); Leukocyte Esterase Urine NEG (NEG); Nitrite Urine NEG (NEG); UACC Culture Trigger NO; Urine Blood NEG (NEG); Urine Ketones NEG (NEG); Urine Protein 2+ MG/DL (NEG-TRACE)
[2021-04-29 13:03] LABS: RBC Urine 0 /HPF (0); Squamous Epithelial Cell Urine TRACE /LPF; WBC Urine 0 /HPF (0-4)
--- NOTE | 2021-04-29 13:16 | PHA.MEDREC ---
Pharmacy Consult ? Medication Reconciliation Pharmacy has completed the medication reconciliation. matched claim history
[2021-04-29] MEDS: Furosemide 100 MG/10 ML VIAL 80 MG IVPUSH (14:21)
[2021-04-29] MEDS: Potassium Chloride ER 20 MEQ TAB.ER.PRT 40 MEQ PO (14:21)
[2021-04-29 14:34] LABS: COVID-19 Test Negative (Negative)
--- NOTE | 2021-04-29 15:01 | ECG_ITS ---
Test Reason : general medical Blood Pressure : / mmHG Vent. Rate : 064 BPM Atrial Rate : 064 BPM P-R Int : 186 ms QRS Dur : 082 ms QT Int : 422 ms P-R-T Axes : 048 005 030 degrees QTc Int : 435 ms Sinus rhythm with frequent Premature ventricular complexes in a pattern of bigeminy Abnormal ECG When compared with ECG of 07-MAR-2021 00:20, in a pattern of bigeminy is new Referred By: Germania Rushing Electronically Signed By:LIZETH CHAVARRIA MD
--- NOTE | 2021-04-29 15:28 | P.HPHOSP_ITS ---
History of Present Illness Date of Service: 04/29/21 Attending physician on admission: Blanca Zhao Chief Complaint: leg swelling This is an 80 year old male with history of multiple medical problems who presents to the emergency department due to lower extremity edema. Patient has dementia and his history is somewhat limited. He is unsure why he was brought to the emergency department today. He was noted to have significant bilateral leg edema, but is not sure how long it has been present. He denies any shortness of breath at rest or with walking. His health care proxy Ashely says that his legs have been swollen for about 5 days. She does not think he is compliant with a low salt diet and he does not monitor his weight at home. She was worried that he was retaining fluid so she sent him to the hospital for his increasing leg edema. Workup in the emergency department revealed elevated BNP of 586. Chest x-ray was unremarkable. Bilateral lower extremity Doppler ultrasound was done and showed no evidence of DVT. The remainder was lab work. To be at his baseline. He was treated with a dose of IV Lasix the decision was made to admit him to the hospital for further management of acute on chronic CHF. Review of Systems 2 Review of Systems: Yes all other systems are reviewed and are negative Constitutional: Constitutional: Denies chills and Denies fever(s) Cardiovascular: Cardiovascular: Denies chest pain Respiratory: Respiratory: Denies cough Gastrointestinal: Gastrointestinal: Denies abdominal pain [facility] Medical History Adenocarcinoma of right lung (~2020) COPD (chronic obstructive pulmonary disease) Dementia Diabetes Former smoker, stopped smoking in distant past History of CVA (cerebrovascular accident) (~07/2020) HTN (hypertension) Hyperlipidemia Pneumonia Functional capacity: independent ambulation Pertinent family history: this was reviewed and unable to be obtained due to the patient's memory impairment Surgical History History of lung biopsy (~10/2020) Social History Household Members: Spouse Household Members Other:: step-son spends the night frequently Housing: House Alcohol intake: never Patient Tobacco Use Status: Former Tobacco user Use of substances other than those prescribed or required for medical reasons: No Are you DNR?: No Advance Directives: No Advance Directives Date on File: 08/31/20 service: No Current occupational status: retired Meds Allergies Allergy/AdvReac Type Severity Reaction Status Date / Time Penicillins [PENICILLINS] Allergy Intermediate RASH Verified 04/06/21 10:59 Active Medications: Current Medications Acetaminophen (Acetaminophen 325 Mg Tablet) 650 mg PO Q6H PRN PRN Reason: Pain, Mild (Pain Scale 1-3) Amlodipine Besylate (Amlodipine Besylate 10 Mg Tablet) 10 mg PO BEDTIME EBER; Protocol Aspirin (Aspirin Enteric Coated 81 Mg Tablet.) 81 mg PO QAM EBER Atorvastatin Calcium (Atorvastatin Calcium 80 Mg Tablet) 80 mg PO BEDTIME EBER Dextrose (Dextrose 50 % 25 Gm/50 Ml Vial) 25 gm IVPUSH Q15M PRN; Protocol PRN Reason: per Hypoglycemia Standing Ord. Docusate Sodium (Docusate Sodium 100 Mg Capsule) 100 mg PO DAILY PRN PRN Reason: Constipation Enoxaparin Sodium (Enoxaparin Sodium 40 Mg/0.4 Ml Syringe) 40 mg SUBCUT Q24H S [facility] Furosemide (Furosemide 40 Mg/4 Ml Vial) 40 mg IVPUSH BID@0900,1800 EBER; Protocol Glucose (Glucose Gel 15 Gm Gel..Gram.) 15 gm PO Q15M PRN; Protocol PRN Reason: per Hypoglycemia Standing Ord. Hydralazine HCl (Hydralazine Hcl 50 Mg Tablet) 50 mg PO BID EBER; Protocol Insulin Human Lispro (Insulin Lispro 100 Unit/Ml 3 Ml Vial) 0 unit SUBCUT QIDACHS EBER; Protocol Losartan Potassium (Losartan Potassium 50 Mg Tablet) 50 mg PO QAM EBER; Protocol Metoprolol Succinate (Metoprolol Succinate Er 50 Mg Tab.Er.24h) 50 mg PO QAM EBER; Protocol Non-Formulary Medication (Insulin Asp Prt-Insulin Aspart [Novolog Mix 70-30flexpen U-100]) 37 unit SUBCUT 1630 EBER Non-Formulary Medication (Insulin Asp Prt-Insulin Aspart [Novolog Mix 70- 30flexpen U-100]) 48 unit SUBCUT QAM EBER Omeprazole (Omeprazole 20 Mg Capsule.) 20 mg PO QAM EBER Ondansetron HCl (Ondansetron Hcl 4 Mg/2 Ml Vial) 4 mg IVPUSH Q8H PRN PRN Reason: Nausea and Vomiting Pharmacy Consult (Consult Rx Perform Med Rec) 1 each MISCELLANE ONCE PRN PRN Reason: Consult order Sodium Chloride (0.9 % Sodium Chloride Flush 3 Ml Syringe) [facility] Vitamin D (Cholecalciferol (Vitamin D3) 25 Mcg Tablet) [facility] [place] Medications Medication Instructions Recorded Confirmed Last Taken Type amlodipine 10 mg tablet 10 mg PO BEDTIME 03/07/21 04/29/21 Unknown History aspirin 81 mg tablet,delayed 81 mg PO QAM 03/07/21 04/29/21 Unknown History release atorvastatin 80 mg tablet 80 mg PO BEDTIME 03/07/21 04/29/21 Unknown History cholecalciferol (vitamin D3) 25 25 mcg PO QAM 03/07/21 04/29/21 Unknown History mcg (1,000 unit) tablet furosemide 40 mg tablet 40 mg PO QAM 03/07/21 04/29/21 Unknown History glimepiride 4 mg tablet 4 mg PO QAM 03/07/21 04/29/21 Unknown History hydralazine 50 mg tablet 50 mg PO BID 03/07/21 04/29/21 Unknown History insulin aspar prot-insulin aspart 37 unit SUBCUT 1630 03/07/21 04/29/21 Unknown History 100 unit/mL (70-30) subcutaneous pen (Novolog Mix 70-30FlexPen U-100) insulin aspar prot-insulin aspart 48 unit SUBCUT QA 03/07/21 04/29/21 Unknown History 100 unit/mL (70-30) subcutaneous pen (Novolog Mix 70-30FlexPen U-100) losartan 50 mg tablet 50 mg PO QAM 03/07/21 04/29/21 Unknown History metoprolol succinate 50 mg 50 mg PO QAM 03/07/21 04/29/21 Unknown History tablet,extended release 24 hr omeprazole 20 mg capsule,delayed 20 mg PO QAM 03/07/21 04/29/21 Unknown History release Physical Exam Vital Signs and Narrative: Vital Signs: Last Vital Signs Temp 98.2 F 04/29/21 12:19 Pulse 68 04/29/21 14:23 Resp 16 04/29/21 14:23 BP 155/67 H 04/29/21 14:23 Pulse Ox 95 04/29/21 14:23 Body Mass Index 33.3 Const: General: cooperative, healthy appearing, comfortable, no acute distress, alert and awake Nutritional Appearance: well nourished Orientation/consciousness: oriented to person and oriented to place HENMT: Head: Yes normocephalic and Yes atraumatic Eyes: Sclerae: sclerae normal Resp: Effort & Inspection: normal respiratory effort and no respiratory distress Cardio: Rate: regular rate Rhythm: regular rhythm GI: Inspection: No distended Palpation (GI): Soft to palpation and nontender Neuro: General: oriented to person and oriented to place Cranial nerves: Yes CN's II-XII intact bilaterally and Yes Bilaterally intact EOM present Extrem: Other: b/l pitting edema Results Labs CBC and Chem 7: 04/29/21 12:13 04/29/21 12:13 Labs: Laboratory Results - last 24 hr 04/29/21 04/29/21 04/29/21 12:13 12:13 12:13 MCV 91.7 MCH 29.3 MCHC 31.9 RDW 15.0 Plt Count 213 MPV 10.8 Immature Gran % (Auto) 0.4 Neut % (Auto) 62.7 Lymph % (Auto) 25.0 [place] % (Auto) 7.3 Eos % (Auto) 4.2 H Baso % (Auto) 0.4 Lymph # (Auto) 2.2 [place] # (Auto) 0.7 Eos # (Auto) 0.4 Baso # (Auto) 0.0 Abs Immat Gran (auto) 0.04 H Absolute Neuts (auto) 5.6 Absolute Nucleated RBC 0.000 Nucleated RBC % (auto) 0.0 Anion Gap 11 L Estim Creat Clear Calc 48.3 Estimated GFR 56 Random Glucose 284 H D Calcium 9.1 Magnesium 1.9 Total Bilirubin 0.5 Direct Bilirubin 0.2 AST 13 D ALT 14 Alkaline Phosphatase 104 D B-Natriuretic Peptide 586 H Total Protein 6.5 Albumin 3.6 Urine Color Urine Appearance Urine pH Ur Specific [place] Urine Protein Urine Glucose (UA) Urine Ketones Urine Blood Urine Nitrite Ur Leukocyte Esterase Urine RBC Urine WBC Ur Squamous Epith Cells Urine Bacteria COVID-19 (SHANA) COVID-19 Clin Com 04/29/21 04/29/21 12:36 14:09 MCV MCH MCHC RDW Plt Count MPV Immature Gran % (Auto) Neut % (Auto) Lymph % (Auto) [place] % (Auto) Eos % (Auto) Baso % (Auto) Lymph # (Auto) [place] # (Auto) Eos # (Auto) Baso # (Auto) Abs Immat Gran (auto) Absolute Neuts (auto) Absolute Nucleated RBC Nucleated RBC % (auto) Anion Gap Estim Creat Clear Calc Estimated GFR Random Glucose Calcium Magnesium Total Bilirubin Direct Bilirubin AST ALT Alkaline Phosphatase B-Natriuretic Peptide Total Protein Albumin Urine Color YELLOW Urine Appearance CLEAR Urine pH 6.0 Ur Specific [place] 1.020 Urine Protein 2+ H Urine Glucose (UA) 500 H Urine Ketones NEG Urine Blood NEG Urine Nitrite NEG Ur Leukocyte Esterase NEG Urine RBC 0 Urine WBC 0 Ur Squamous Epith Cells TRACE Urine Bacteria Not Reportable COVID-19 (SHANA) Negative COVID-19 Clin Com See Note Imaging Radiologist's Impressions: Impressions Chest X-Ray 04/29/21 11:42 IMPRESSION: No radiographic evidence of pulmonary edema. No acute pulmonary process. Known right lung nodules are not as discretely seen on plain radiographs. Venous Duplex 04/29/21 12:05 IMPRESSION: No DVT demonstrated in the bilateral lower extremities. Assessment and Plan (1) Acute on chronic heart failure with preserved ejection fraction: Status: Acute This is an 80-year-old male with history of dementia, stroke, COPD, hypertension, hyperlipidemia, diabetes and lung cancer who was brought to the emergency department for evaluation of lower extremity edema found to be in acute heart failure Acute on chronic HFpEF last echo from 07/30 with preserved EF and diastolic dysfunction BNP 586 -IV lasix -Is&Os -fluid restriction DM on 70/30 insulin at home will convert to lower dose of Lantus while inpatient. monitor POCs and uptitrate as needed -SSI, POCs, ADA diet HTN continue home doses of Norvasc, hydralzine, losartan, metoprolol HLD Continue statin gerd Continue omeprazole h/o CVA continue asa, statin Lung adenocarcinoma FNA 10/2020 revealed lung adenocarcinoma staging CT chest/abdomen/pelvis from 01/2021 with no evidence of metastatic disease follows with Dr. Dsouza, Dr. Chino, likely not good surgical candidate due to dementia and multiple co-morbidities; but awaiting PET scan to complete staging to determine treatment plan code status - Full code - confirmed with HCP Ashely DVT ppx - lovenox Attending. Dr. Pavel Quality Stroke Does the patient have a stroke diagnosis?: No VTE Prior VTE?: No VTE Risk Level:: Medical - moderate - high VTE Device Contraindication: Treatment Not Indicated VTE Drug Contraindication: N/A - Med Ordered
--- NOTE | 2021-04-29 16:42 | P.EN_ITS ---
Event Note Date of Service: 04/30/21 Event Note: Addendum to history and physical by mid-level provider AKIKO Ruiz. I interviewed and examined the patient. I discussed their presentation and management with the mid-level provider. I reviewed the history and physical and agree with the documentation, with the following additions and corrections: 80yo M with dementia, COPD, DM2, recently diagnosed lung CA, HTN, HLD, PNA, diastolic HF presenting with worsening edema no respiratory symptoms per HCP/stepdaughter [place]- nonadherent with low-sodium diet on exam, disoriented, lungs clear, 2+ pitting edema bilateral legs BNP 586 CXR clear plan admit to [facility] for acute/chronic HFpEF, diurese with IV furosemide, update TTE
[2021-04-29 16:48] LABS: Glucose, Whole Blood 166 mg/dL (60-115)
[2021-04-29] MEDS: Aspirin Enteric Coated 81 MG TABLET.DR PO (16:52)
[2021-04-29] MEDS: Enoxaparin Sodium 40 MG/0.4 ML SYRINGE SUBCUT (16:52)
[2021-04-29] MEDS: Insulin Lispro 100 UNIT/ML 3 ML VIAL SUBCUT ×2 (16:52→21:21)
[2021-04-29] MEDS: 0.9 % Sodium Chloride Flush 3 ML SYRINGE IVFLUSH ×2 (16:52→21:21)
[2021-04-29] MEDS: Furosemide 40 MG/4 ML VIAL IVPUSH (18:42)
[2021-04-29 20:40] LABS: Glucose, Whole Blood 172 mg/dL (60-115)
[2021-04-29] MEDS: Acetaminophen 325 MG TABLET 650 MG PO (21:19)
[2021-04-29] MEDS: amLODIPine Besylate 10 MG TABLET PO (21:19)
[2021-04-29] MEDS: Atorvastatin Calcium 80 MG TABLET PO (21:20)
[2021-04-29] MEDS: hydrALAZINE HCl 50 MG TABLET PO (21:20)
[2021-04-29] MEDS: Insulin Glargine,Hum.rec.anlog 100 UNIT/ML 10 ML VIAL 20 UNIT SUBCUT (21:21)
[2021-04-30] VITALS (7 sets, daily range): BP systolic 153–186; BP diastolic 62–78; PULSE 53–70; RESP 18–20; TEMP 36.5–36.8; O2SAT 94–97; BMI 33.4
[2021-04-30] MEDS: Omeprazole 20 MG CAPSULE.DR PO (05:49)
[2021-04-30 06:27] LABS: MANUAL DIFF FLAG NO
[2021-04-30 06:45] LABS: Anion Gap 15 (12-20); Blood Urea Nitrogen 19 mg/dL (9-16); Calcium 9.6 mg/dL (8.4-10.2); Carbon Dioxide 30 mmol/L (22-29); Chloride 103 mmol/L (96-108); Creatinine Clr Calc Pharmacy 51.3; Estimated Glomerular Filt Rate 60; Glucose Random 95 mg/dL (60-115); Potassium 3.9 mmol/L (3.3-5.1); Sodium 144 mmol/L (135-145)
[2021-04-30 06:51] LABS: Basophils Absolute Auto 0.1 X10*3/uL (0.0-0.2); Basophils Percent Auto 0.8 % (0-2); Eosinophils Absolute Auto 0.7 X10*3/uL (0.0-0.4); Hematocrit 32.4 % (42.0-52.0); Hemoglobin 10.4 g/dl (14.0-18.0); Imm Gran Abs Auto 0.03 X10*3/uL (0.00-0.03); Imm Gran Pct Auto 0.3 % (0.0-0.4); Lymphocytes Absolute Auto 3.1 X10*3/uL (1.2-4.9); Lymphocytes Percent Auto 32.3 % (20-40); Mean Corpuscular HGB Conc 32.1 g/dl (31.0-36.0); Mean Corpuscular Hemoglobin 28.5 pg (27.0-33.0); Mean Corpuscular Volume 88.8 fL (80.0-98.0); Monocytes Absolute Auto 0.7 X10*3/uL (0.1-1.2); Monocytes Percent Auto 7.2 % (2-11); Neutrophils Absolute Auto 5.1 x10*3/uL (2.0-8.3); Neutrophils Percent Auto 52.4 % (45-73); Platelet Count 245 X10*3/uL (160-400); Red Blood Count 3.65 X10*6/uL (4.60-5.80); Red Cell Distribution Width 14.6 % (11.0-16.0); White Blood Count 9.6 X10*3/uL (4.8-10.8)
[2021-04-30 07:37] LABS: Glucose, Whole Blood 98 mg/dL (60-115)
[2021-04-30 08:25] LABS: Estimated Average Glucose 180 mg/dL; Hemoglobin A1c % 7.9 %
[2021-04-30] MEDS: Aspirin Enteric Coated 81 MG TABLET.DR PO (08:34)
[2021-04-30] MEDS: Losartan Potassium 50 MG TABLET PO (08:34)
[2021-04-30] MEDS: Cholecalciferol (Vitamin D3) 25 MCG TABLET PO (08:34)
[2021-04-30] MEDS: hydrALAZINE HCl 50 MG TABLET PO ×2 (08:34→20:43)
[2021-04-30] MEDS: Furosemide 40 MG/4 ML VIAL IVPUSH ×2 (08:34→18:23)
[2021-04-30] MEDS: Metoprolol Succinate ER 50 MG TAB.ER.24H PO (08:34)
[2021-04-30] MEDS: 0.9 % Sodium Chloride Flush 3 ML SYRINGE IVFLUSH ×2 (08:35→18:23)
[2021-04-30] MEDS: Insulin Glargine,Hum.rec.anlog 100 UNIT/ML 10 ML VIAL 15 UNIT SUBCUT (08:35)
--- NOTE | 2021-04-30 10:18 | P.CDIC_ITS ---
CDI Concurrent Query Documentation Clarification: PHYSICIAN'S DOCUMENTATION REQUEST Date of Query: 04/30/21 1019 Patient Name: Jerome Davis Admit Date: 04/29/21 Dear Doctor, A review of the medical record indicates additional documentation may be needed. Please review below and update the documentation accordingly. Risk Factors/Clinical Indicators/Treatments H&P: 04/29 - Dementia, unsure what happened and why in the Ed. Not a good surgical candidate due to Dementia. Uable to obtain H/O due to patients memory impairment. If possible, please further clarify type of Alzheimer's and any associated manifestations: Disease Type: Dementia Dementia, Vascular, Senile, Presenile, etc. * Dementia without behavioral disturbance * Dementia with behavioral disturbance * No associated manifestations * Other ? please specify * Unable to determine Use of terms such as suspected, likely, concern for, or probable (associated with a specific diagnosis that is being evaluated, monitored, or treated as if it exists) are acceptable and can be coded in the inpatient setting, when documented at the time of discharge. Thank you, Yessenia Larson [facility], CDIS Extension: [phone] Please use your independent medical judgment in providing your response. THIS QUERY IS PART OF THE PERMANENT MEDICAL RECORD Provider Response: Other Other Diagnosis: dementia unable to determine
[2021-04-30 11:18] LABS: Glucose, Whole Blood 197 mg/dL (60-115)
[2021-04-30] MEDS: Insulin Lispro 100 UNIT/ML 3 ML VIAL SUBCUT ×3 (12:39→20:46)
--- NOTE | 2021-04-30 12:56 | HO.PM.IMPN ---
Subjective Subjective Date of Service: 04/30/21 Interval History: no complaints but unreliable ROS due to dementia Review of Systems Review of Systems: Yes Unobtainable due to mental status Physical Exam Vital Signs: Vital Signs: Last Vital Signs Temp 97.7 F 04/30/21 11:39 Pulse 58 04/30/21 11:39 Resp 20 04/30/21 11:39 BP 158/62 H 04/30/21 11:39 Pulse Ox 96 04/30/21 11:39 Body Mass Index 33.4 Gen: in no acute distress HEENT: sclera anicteric, moist mucus membranes Neck: supple Lungs: clear to auscultation bilaterally Heart: regular rate and rhythm, no murmurs Abd: soft, non-tender, non-distended Ext: 1+ lower extremity edema Skin: warm/well-perfused Neuro: disoriented Psych: appropriate affect Objective Data Active Medications Acetaminophen (Acetaminophen 325 Mg Tablet) 650 mg PO Q6H PRN PRN Reason: Pain, Mild (Pain Scale 1-3) Last Admin: 04/29/21 21:19 Dose: 650 mg Documented by: KINJAL Amlodipine Besylate (Amlodipine Besylate 10 Mg Tablet) 10 mg PO BEDTIME [facility]; Protocol Last Admin: 04/29/21 21:19 Dose: 10 mg Documented by: KINJAL Aspirin (Aspirin Enteric Coated 81 Mg Tablet.) 81 mg PO DAILY [facility] Last Admin: 04/30/21 08:34 Dose: 81 mg Documented by: JULIETTE Atorvastatin Calcium (Atorvastatin Calcium 80 Mg Tablet) 80 mg PO BEDTIME [facility] Last Admin: 04/29/21 21:20 Dose: 80 mg Documented by: KINJAL Dextrose (Dextrose 50 % 25 Gm/50 Ml Vial) 25 gm IVPUSH Q15M PRN; Protocol PRN Reason: per Hypoglycemia Standing Ord. Docusate Sodium (Docusate Sodium 100 Mg Capsule) 100 mg PO DAILY PRN PRN Reason: Constipation Enoxaparin Sodium (Enoxaparin Sodium 40 Mg/0.4 Ml Syringe) 40 mg SUBCUT Q24H [facility] Last Admin: 04/29/21 16:52 Dose: 40 mg Documented by: ANJUOPEAnnette Furosemide (Furosemide 40 Mg/4 Ml Vial) 40 mg IVPUSH BID@0900,1800 [facility]; Protocol Last Admin: 04/30/21 08:34 Dose: 40 mg Documented by: JULIETTE Glucose (Glucose Gel 15 Gm Gel..Gram.) 15 gm PO Q15M PRN; Protocol PRN Reason: per Hypoglycemia Standing Ord. Hydralazine HCl (Hydralazine Hcl 50 Mg Tablet) 50 mg PO BID [facility]; Protocol Last Admin: 04/30/21 08:34 Dose: 50 mg Documented by: JULIETTE Insulin Glargine (Insulin Glargine,Hum.Rec.Anlog 100 Unit/Ml 10 Ml Vial) 15 unit SUBCUT DAILY [facility] Last Admin: 04/30/21 08:35 Dose: 15 unit Documented by: JULIETTE Insulin Glargine (Insulin Glargine,Hum.Rec.Anlog 100 Unit/Ml 10 Ml Vial) 20 unit SUBCUT BEDTIME [facility] Last Admin: 04/29/21 21:21 Dose: 20 unit Documented by: KINJAL Insulin Human Lispro (Insulin Lispro 100 Unit/Ml 3 Ml Vial) 0 unit SUBCUT QIDACHS [facility]; Protocol Last Admin: 04/30/21 12:39 Dose: 2 unit Documented by: JULIETTE Losartan Potassium (Losartan Potassium 50 Mg Tablet) 50 mg PO DAILY [facility]; Protocol Last Admin: 04/30/21 08:34 Dose: 50 mg Documented by: JULIETTE Metoprolol Succinate (Metoprolol Succinate Er 50 Mg Tab.Er.24h) 50 mg PO DAILY [facility]; Protocol Last Admin: 04/30/21 08:34 Dose: 50 mg Documented by: JULIETTE Omeprazole (Omeprazole 20 Mg Capsule.) 20 mg PO DAILY@0630 [facility] Last Admin: 04/30/21 05:49 Dose: 20 mg Documented by: KINJAL Ondansetron HCl (Ondansetron Hcl 4 Mg/2 Ml Vial) 4 mg IVPUSH Q8H PRN PRN Reason: Nausea and Vomiting Pharmacy Consult (Consult Rx Perform Med Rec) 1 each MISCELLANE ONCE PRN PRN Reason: Consult order Sodium Chloride (0.9 % Sodium Chloride Flush 3 Ml Syringe) 3 ml IVFLUSH QSHIFT [facility] Last Admin: 04/30/21 08:35 Dose: 3 ml Documented by: JULIETTE Vitamin D (Cholecalciferol (Vitamin D3) 25 Mcg Tablet) 25 mcg PO DAILY [facility] Last Admin: 04/30/21 08:34 Dose: 25 mcg Documented by: JULIETTE Labs CBC & Chem 7: 04/30/21 05:57 04/30/21 05:57 Labs: Laboratory Results - last 24 hr 04/29/21 04/29/21 04/29/21 12:36 14:09 16:44 MCV MCH MCHC RDW Plt Count MPV Immature Gran % (Auto) Neut % (Auto) Lymph % (Auto) [place] % (Auto) Eos % (Auto) Baso % (Auto) Lymph # (Auto) [place] # (Auto) Eos # (Auto) Baso # (Auto) Abs Immat Gran (auto) Absolute Neuts (auto) Absolute Nucleated RBC Nucleated RBC % (auto) Anion Gap Estim Creat Clear Calc Estimated GFR POC Glucose 166 H Random Glucose Estimat Average Glucose Hemoglobin A1c % Calcium Urine Color YELLOW Urine Appearance CLEAR Urine pH 6.0 Ur Specific [place] 1.020 Urine Protein 2+ H Urine Glucose (UA) 500 H Urine Ketones NEG Urine Blood NEG Urine Nitrite NEG Ur Leukocyte Esterase NEG Urine RBC 0 Urine WBC 0 Ur Squamous Epith Cells TRACE Urine Bacteria Not Reportable COVID-19 (SHANA) Negative COVID-19 Clin Com See Note 04/29/21 04/30/21 04/30/21 20:36 05:57 05:57 MCV 88.8 MCH 28.5 MCHC 32.1 RDW 14.6 Plt Count 245 MPV 12.0 Immature Gran % (Auto) 0.3 Neut % (Auto) 52.4 Lymph % (Auto) 32.3 [place] % (Auto) 7.2 Eos % (Auto) 7.0 H Baso % (Auto) 0.8 Lymph # (Auto) 3.1 [place] # (Auto) 0.7 Eos # (Auto) 0.7 H Baso # (Auto) 0.1 Abs Immat Gran (auto) 0.03 Absolute Neuts (auto) 5.1 Absolute Nucleated RBC 0.000 Nucleated RBC % (auto) 0.0 Anion Gap 15 Estim Creat Clear Calc 51.3 Estimated GFR 60 POC Glucose 172 H Random Glucose 95 D Estimat Average Glucose Hemoglobin A1c % Calcium 9.6 Urine Color Urine Appearance Urine pH Ur Specific [place] Urine Protein Urine Glucose (UA) Urine Ketones Urine Blood Urine Nitrite Ur Leukocyte Esterase Urine RBC Urine WBC Ur Squamous Epith Cells Urine Bacteria COVID-19 (SHANA) COVID-19 Clin Com 04/30/21 04/30/21 04/30/21 05:57 07:20 11:14 MCV MCH MCHC RDW Plt Count MPV Immature Gran % (Auto) Neut % (Auto) Lymph % (Auto) [place] % (Auto) Eos % (Auto) Baso % (Auto) Lymph # (Auto) [place] # (Auto) Eos # (Auto) Baso # (Auto) Abs Immat Gran (auto) Absolute Neuts (auto) Absolute Nucleated RBC Nucleated RBC % (auto) Anion Gap Estim Creat Clear Calc Estimated GFR POC Glucose 98 197 H Random Glucose Estimat Average Glucose 180 Hemoglobin A1c % 7.9 Calcium Urine Color Urine Appearance Urine pH Ur Specific [place] Urine Protein Urine Glucose (UA) Urine Ketones Urine Blood Urine Nitrite Ur Leukocyte Esterase Urine RBC Urine WBC Ur Squamous Epith Cells Urine Bacteria COVID-19 (SHANA) COVID-19 Clin Com Assessment and Plan (1) Acute on chronic heart failure with preserved ejection fraction: Status: Acute Assessment and Plan: hospital d#2 80yo M with dementia, CVA, COPD, HTN, HLD, DM2, lung CA, diastolic HF admitted for CHF exacerbation # acute/chronic HFpEF - continue IV diuresis, trend I/O + BNP, monitor BMP + Mg - continue ARB, B-alejandro + other antihypertensives # HTN - continue amlodipine, losartan, metoprolol, hydralazine # HLD # hx CVA - continue statin + ASA # DM2, A1c 7.7 - basal/bolus insulin # GERD - continue PPI # lung CA - diagnosed on FNA October 2020- staging CT Jan 27 no evidence of metastatic dz; awaiting PET scan to complete staging; followed by Sameera Dsouza + Lul[place] # VTE ppx - LMWH Quality Stroke Does the patient have a stroke diagnosis?: No VTE Prior VTE?: No VTE Risk Level:: Medical - moderate - high VTE Device Contraindication: Treatment Not Indicated VTE Drug Contraindication: N/A - Med Ordered
--- NOTE | 2021-04-30 15:10 | MHC.CM.PN ---
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 HE REPORTS THE NURSE IS FROM [facility]. PT DENIES USE OF DME PT HAS A HCP ON FILE AND HIS PCP IS CELESTINA TOMPKINS. IMM DELIVERED CURRENT DC PLAN IS HOME WITH RESUMPTION OF SERVICES PT FAMILY TO TRANSPORT
[2021-04-30 16:43] LABS: Glucose, Whole Blood 184 mg/dL (60-115)
[2021-04-30] MEDS: Enoxaparin Sodium 40 MG/0.4 ML SYRINGE SUBCUT (18:24)
[2021-04-30 20:20] LABS: Glucose, Whole Blood 155 mg/dL (60-115)
[2021-04-30] MEDS: Atorvastatin Calcium 80 MG TABLET PO (20:43)
[2021-04-30] MEDS: amLODIPine Besylate 10 MG TABLET PO (20:43)
[2021-04-30] MEDS: Insulin Glargine,Hum.rec.anlog 100 UNIT/ML 10 ML VIAL 20 UNIT SUBCUT (20:43)
[2021-05-01] VITALS (9 sets, daily range): BP systolic 120–149; BP diastolic 46–75; PULSE 55–112; RESP 16–18; TEMP 35.8–37.1; O2SAT 92–97; BMI 32.8
[2021-05-01] MEDS: 0.9 % Sodium Chloride Flush 3 ML SYRINGE IVFLUSH ×4 (00:16→21:13)
[2021-05-01] MEDS: Omeprazole 20 MG CAPSULE.DR PO (05:44)
[2021-05-01 07:08] LABS: Anion Gap 15 (12-20); Blood Urea Nitrogen 26 mg/dL (9-16); Calcium 9.6 mg/dL (8.4-10.2); Carbon Dioxide 31 mmol/L (22-29); Chloride 101 mmol/L (96-108); Creatinine Clr Calc Pharmacy 44.4; Estimated Glomerular Filt Rate 51; Glucose Random 60 mg/dL (60-115); Magnesium 1.8 mg/dL (1.6-2.6); Potassium 3.5 mmol/L (3.3-5.1); Sodium 143 mmol/L (135-145)
[2021-05-01 07:11] LABS: B Type Natriuretic Peptide 172 pg/mL (<100)
[2021-05-01 07:28] LABS: Glucose, Whole Blood 60 mg/dL (60-115)
[2021-05-01 08:07] LABS: Glucose, Whole Blood 119 mg/dL (60-115)
--- NOTE | 2021-05-01 09:00 | CA_ITS ---
Transthoracic Echocardiogram Patient (Last, First, Middle): Jerome Ro, Gender: Male Date of : 1940 Age: 80 Procedure Date: 05/01/2021 Procedure Type: Transthoracic Echocardiogram Location: [facility] [place] Height: 165.1 cm Weight: 91.17 kg BSA: 1.98 m2 Heart Rate: bpm BP: 186 / 78 mmHg Embroiderer: Referring MD: Blanca Zhao MD Lump Room Supervisor: Clark Mercado MD Symptoms: chf Study Quality: Fair ECG Rhythm: Sinus with extra beats Conclusions: - 1. Normal LV systolic function with mild LVH with impaired relaxation filling pattern 2. Borderline left atrial enlargement 3. Normal cardiac valvular Doppler 4. Normal RV systolic pressure 5. No gross pericardial effusion Findings Left Ventricle Normal left ventricular size and systolic function. There is mildly increased left ventricular wall thickness. The visually estimated ejection fraction is between 60-65%. Spectral Doppler is indicative of an impaired relaxation filling pattern. E/E prime ratio is between 8 and 15 consistent with indeterminate filling pressures. Right Ventricle Normal right ventricular cavity size and systolic function. Atria The left atrium is likely dilated. There is lipomatous hypertrophy of the interatrial septum. Interatrial shunt cannot be excluded. The right atrium is normal in size. Aortic Valve There is mild calcification of the aortic valve. There is mild thickening of the aortic valve. There is no aortic valve stenosis. There is no aortic valve regurgitation. Mitral Valve There is mild anterior and posterior mitral leaflet thickening. There is mild mitral annular calcification. There is trace mitral valve regurgitation. There is no mitral valve stenosis. Pulmonic Valve The pulmonic valve was not well visualized. Tricuspid Valve Likely normal tricuspid valve structure and function. There is mild tricuspid valve regurgitation. The right ventricular systolic pressure is normal. The right ventricular systolic pressure is 29 mmHg. Normal right atrial pressure. There is no evidence of pulmonary hypertension. Great Vessels The pulmonary artery was not well visualized. Venous The inferior vena cava is normal in size and collapses greater than 50% with inspiration. Pericardium/Pleural There is no evidence of pericardial effusion. Prior Study Comparison Changes noted compared to prior study dated: 07/28/2020. RV systolic pressure measured on this study are within normal limits. Measurements 2D Linear Measurements IVSd: 1.27 0.6-0.9/0.6-1.0 cm LVIDd: 4.71 3.9-5.3/4.2-5.9 cm LVIDd Index: 2.38 2.4-3.2/2.2-3.1 cm/m2 LVIDs: 2.58 2.0-3.6 cm LVPWd: 1.27 0.7-1.1 cm Ao Root: 3.00 2.1-3.5 cm LA Diam: 4.40 2.7-3.8/3.0-4.0 cm LAIDs Index: 2.22 1.5-2.3 cm/m2 LV Mass: 287.65 67-162/88-224 g LV Mass Index: 145.28 43-95/49-115 g/m2 LVOT Diam: 2.10 3.0+(-)1.3 cm Mitral Valve MV Pk E: 1.04 MV PK A: 1.14 MV Decel Time: 262.00 E/A: 0.90 E'Lateral: 10.70 E'Medial: 6.42 E/E' Med: 16.20 E/E' Lat: 9.70 PHT: 77.00 MVA PHT: 2.86 Decel Grady: 3.98 Aortic Valve AoV Pk Charli: 1.75 AoV Mn Charli: 1.18 AoV VTI: 0.46 AoV Pk Grad: 12.00 Aov Mn Grad: 6.00 PIERO Cont.VTI: 2.56 LVOT LVOT Pk Charli: 1.13 LVOT Mn Charli: 0.67 LVOT VTI: 0.34 LVOT Pk Grad: 5.00 LVOT Mn Grad: 2.00 LVOT Diam: 2.10 LVOT Area: 3.46 Diastolic Function MV Pk E: 1.04 MV Pk A: 1.14 E/A: 0.90 E'Medial: 6.42 E/E' Med: 16.20 E' Laterial: 10.70 E/E' Lat: 9.70 Right Ventricle TAPSE (mm): 34.00 TVS' Charli: 15.00 Tricuspid Valve TR Pk Charli: 2.54 TR Pk Grad: 26.00 RA Press: 3.00 RVSP: 29.00 Great Vessels Aorta Ao Root-2D: 3.00 2.0-3.7 cm Ao Asc: 2.90 2.1-3.4 cm Pulmonary Valve PV Pk Charli: 1.19 Peak PV Grad: 6.00 Updated in Other Vendor System with Status of Final Clark Mercado MD electronically signed on 05/01/2021 4:58:47 PM with status of Final
[2021-05-01] MEDS: Losartan Potassium 50 MG TABLET PO (09:17)
[2021-05-01] MEDS: Aspirin Enteric Coated 81 MG TABLET.DR PO (09:18)
[2021-05-01] MEDS: Cholecalciferol (Vitamin D3) 25 MCG TABLET PO (09:18)
[2021-05-01] MEDS: hydrALAZINE HCl 50 MG TABLET PO ×2 (09:19→21:11)
[2021-05-01] MEDS: Metoprolol Succinate ER 50 MG TAB.ER.24H PO (09:19)
[2021-05-01] MEDS: Insulin Glargine,Hum.rec.anlog 100 UNIT/ML 10 ML VIAL 15 UNIT SUBCUT (09:20)
[2021-05-01] MEDS: Furosemide 40 MG/4 ML VIAL IVPUSH ×2 (09:21→18:09)
--- NOTE | 2021-05-01 11:32 | MHC.CM.PN ---
IMM 04/29/21 Male 80 DX CHF is discharged to home today with caregiver home; which is already in place. Family is providing transportation home.
[2021-05-01 11:41] LABS: Glucose, Whole Blood 246 mg/dL (60-115)
--- NOTE | 2021-05-01 12:02 | P.PNIM_ITS ---
Subjective Subjective Date of Service: 05/01/21 Interval History: still c/o leg edema Review of Systems Review of Systems: Yes all other systems are reviewed and are negative Physical Exam Vital Signs: Vital Signs: Last Vital Signs Temp 98.3 F 05/01/21 07:43 Pulse 67 05/01/21 09:19 Resp 16 05/01/21 07:43 BP 143/64 H 05/01/21 09:19 Pulse Ox 95 05/01/21 07:43 Body Mass Index 32.8 Gen: in no acute distress HEENT: sclera anicteric, moist mucus membranes Neck: supple Lungs: clear to auscultation bilaterally Heart: regular rate and rhythm, no murmurs Abd: soft, non-tender, non-distended Ext: 1+ lower extremity edema Skin: warm/well-perfused Neuro: disoriented Psych: appropriate affect Objective Data Active Medications Acetaminophen (Acetaminophen 325 Mg Tablet) 650 mg PO Q6H PRN PRN Reason: Pain, Mild (Pain Scale 1-3) Last Admin: 04/29/21 21:19 Dose: 650 mg Documented by: KINJAL Amlodipine Besylate (Amlodipine Besylate 10 Mg Tablet) 10 mg PO BEDTIME [facility]; Protocol Last Admin: 04/30/21 20:43 Dose: 10 mg Documented by: NATE Aspirin (Aspirin Enteric Coated 81 Mg Tablet.) 81 mg PO DAILY [facility] Last Admin: 05/01/21 09:18 Dose: 81 mg Documented by: ZORA Atorvastatin Calcium (Atorvastatin Calcium 80 Mg Tablet) 80 mg PO BEDTIME [facility] Last Admin: 04/30/21 20:43 Dose: 80 mg Documented by: NATE Dextrose (Dextrose 50 % 25 Gm/50 Ml Vial) 25 gm IVPUSH Q15M PRN; Protocol PRN Reason: per Hypoglycemia Standing Ord. Docusate Sodium (Docusate Sodium 100 Mg Capsule) 100 mg PO DAILY PRN PRN Reason: Constipation Enoxaparin Sodium (Enoxaparin Sodium 40 Mg/0.4 Ml Syringe) 40 mg SUBCUT Q24H [facility] Last Admin: 04/30/21 18:24 Dose: 40 mg Documented by: NATE Furosemide (Furosemide 40 Mg/4 Ml Vial) 40 mg IVPUSH BID@0900,1800 [facility]; Protocol Last Admin: 05/01/21 09:21 Dose: 40 mg Documented by: ZORA Glucose (Glucose Gel 15 Gm Gel..Gram.) 15 gm PO Q15M PRN; Protocol PRN Reason: per Hypoglycemia Standing Ord. Hydralazine HCl (Hydralazine Hcl 50 Mg Tablet) 50 mg PO BID [facility]; Protocol Last Admin: 05/01/21 09:19 Dose: 50 mg Documented by: ZORA Insulin Glargine (Insulin Glargine,Hum.Rec.Anlog 100 Unit/Ml 10 Ml Vial) 15 unit SUBCUT DAILY [facility] Last Admin: 05/01/21 09:20 Dose: 15 unit Documented by: ZORA Insulin Glargine (Insulin Glargine,Hum.Rec.Anlog 100 Unit/Ml 10 Ml Vial) 20 unit SUBCUT BEDTIME [facility] Last Admin: 04/30/21 20:43 Dose: 20 unit Documented by: NATE Insulin Human Lispro (Insulin Lispro 100 Unit/Ml 3 Ml Vial) 0 unit SUBCUT QIDACHS [facility]; Protocol Last Admin: 05/01/21 07:30 Dose: Not Given Documented by: MELVA Non-Admin Reason: No Insulin Coverage Losartan Potassium (Losartan Potassium 50 Mg Tablet) 50 mg PO DAILY [facility]; Protocol Last Admin: 05/01/21 09:17 Dose: 50 mg Documented by: ZORA Metoprolol Succinate (Metoprolol Succinate Er 50 Mg Tab.Er.24h) 50 mg PO DAILY [facility]; Protocol Last Admin: 05/01/21 09:19 Dose: 50 mg Documented by: ZORA Omeprazole (Omeprazole 20 Mg Capsule.Dr) 20 mg PO DAILY@0630 [facility] Last Admin: 05/01/21 05:44 Dose: 20 mg Documented by: GEO Ondansetron HCl (Ondansetron Hcl 4 Mg/2 Ml Vial) 4 mg IVPUSH Q8H PRN PRN Reason: Nausea and Vomiting Pharmacy Consult (Consult Rx Perform Med Rec) 1 each MISCELLANE ONCE PRN PRN Reason: Consult order Sodium Chloride (0.9 % Sodium Chloride Flush 3 Ml Syringe) 3 ml IVFLUSH QSHIFT [facility] Last Admin: 05/01/21 09:21 Dose: 3 ml Documented by: ZORA Vitamin D (Cholecalciferol (Vitamin D3) 25 Mcg Tablet) 25 mcg PO DAILY [facility] Last Admin: 05/01/21 09:18 Dose: 25 mcg Documented by: ZORA Labs CBC & Chem 7: 04/30/21 05:57 05/01/21 06:04 Labs: Laboratory Results - last 24 hr 04/30/21 04/30/21 05/01/21 16:36 20:17 06:04 Anion Gap 15 Estim Creat Clear Calc 44.4 Estimated GFR 51 POC Glucose 184 H 155 H Random Glucose 60 D Calcium 9.6 Magnesium 1.8 B-Natriuretic Peptide 05/01/21 05/01/21 05/01/21 06:04 07:23 08:04 Anion Gap Estim Creat Clear Calc Estimated GFR POC Glucose 60 119 H Random Glucose Calcium Magnesium B-Natriuretic Peptide 172 H 05/01/21 11:36 Anion Gap Estim Creat Clear Calc Estimated GFR POC Glucose 246 H Random Glucose Calcium Magnesium B-Natriuretic Peptide Assessment and Plan (1) Acute on chronic heart failure with preserved ejection fraction: Status: Acute Assessment and Plan: hospital d#3 80yo M with dementia, CVA, COPD, HTN, HLD, DM2, lung CA, diastolic HF admitted for CHF exacerbation # acute/chronic HFpEF - continue IV diuresis, trend I/O + BNP, monitor BMP + Mg - continue ARB, B-alejandro + other antihypertensives - TTE pending # HTN - continue amlodipine, losartan, metoprolol, hydralazine # HLD # hx CVA - continue statin + ASA # DM2, A1c 7.7 - basal/bolus insulin # GERD - continue PPI # lung CA - diagnosed on FNA October 2020- staging CT Jan 27 no evidence of metastatic dz; awaiting PET scan to complete staging; followed by Sameera Dsouza + Lul[facility] # VTE ppx - LMWH # dispo - anticipate home with VNA likely tomorrow Quality Stroke Does the patient have a stroke diagnosis?: No VTE Prior VTE?: No VTE Risk Level:: Medical - moderate - high VTE Device Contraindication: Treatment Not Indicated VTE Drug Contraindication: N/A - Med Ordered
[2021-05-01] MEDS: Insulin Lispro 100 UNIT/ML 3 ML VIAL SUBCUT ×2 (12:24→21:12)
[2021-05-01 16:30] LABS: Glucose, Whole Blood 142 mg/dL (60-115)
[2021-05-01] MEDS: Enoxaparin Sodium 40 MG/0.4 ML SYRINGE SUBCUT (18:09)
[2021-05-01] MEDS: Acetaminophen 325 MG TABLET 650 MG PO (18:14)
[2021-05-01 20:17] LABS: Glucose, Whole Blood 231 mg/dL (60-115)
[2021-05-01] MEDS: Atorvastatin Calcium 80 MG TABLET PO (21:11)
[2021-05-01] MEDS: amLODIPine Besylate 10 MG TABLET PO (21:11)
[2021-05-01] MEDS: Insulin Glargine,Hum.rec.anlog 100 UNIT/ML 10 ML VIAL 20 UNIT SUBCUT (21:12)
--- NOTE | 2021-05-01 21:31 | PC.NURSE ---
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
[2021-05-02 03:20] VITALS: BP 145/66; PULSE 65; RESP 17; TEMP 36.7; O2SAT 92
[2021-05-02] MEDS: Omeprazole 20 MG CAPSULE.DR PO (05:53)
[2021-05-02 06:58] LABS: B Type Natriuretic Peptide 104 pg/mL (<100)
[2021-05-02 07:00] LABS: Anion Gap 16 (12-20); Blood Urea Nitrogen 31 mg/dL (9-16); Calcium 9.3 mg/dL (8.4-10.2); Carbon Dioxide 30 mmol/L (22-29); Chloride 101 mmol/L (96-108); Creatinine Clr Calc Pharmacy 37.7; Estimated Glomerular Filt Rate 42; Glucose Random 91 mg/dL (60-115); Magnesium 1.9 mg/dL (1.6-2.6); Potassium 3.8 mmol/L (3.3-5.1); Sodium 143 mmol/L (135-145)
[2021-05-02 07:07] VITALS: BP 160/68; PULSE 67; RESP 20; TEMP 36.1; O2SAT 94
[2021-05-02 07:24] LABS: Glucose, Whole Blood 89 mg/dL (60-115)
[2021-05-02 08:32] VITALS: BP 160/68; PULSE 67
[2021-05-02] MEDS: Losartan Potassium 50 MG TABLET PO (08:32)
[2021-05-02 08:33] VITALS: BP 160/68; PULSE 67
[2021-05-02] MEDS: Aspirin Enteric Coated 81 MG TABLET.DR PO (08:33)
[2021-05-02] MEDS: Cholecalciferol (Vitamin D3) 25 MCG TABLET PO (08:33)
[2021-05-02] MEDS: Metoprolol Succinate ER 50 MG TAB.ER.24H PO (08:33)
[2021-05-02 08:34] VITALS: BP 160/68; PULSE 67
[2021-05-02] MEDS: hydrALAZINE HCl 50 MG TABLET PO (08:34)
[2021-05-02] MEDS: Insulin Glargine,Hum.rec.anlog 100 UNIT/ML 10 ML VIAL 15 UNIT SUBCUT (08:35)
[2021-05-02] MEDS: 0.9 % Sodium Chloride Flush 3 ML SYRINGE IVFLUSH (08:37)
--- NOTE | 2021-05-02 10:23 | PM.DS ---
DS: Providers Provider Date of Service: 05/02/21 Date of admission: 04/29/21 15:16 Primary care physician: Gonzales Ross MD DS: Diagnosis Discharge Diagnosis (1) Acute on chronic heart failure with preserved ejection fraction: Status: Acute DS: Summary Hospital Course Hospital Course: patient was admitted for acute on chronic diastolic chf. he was diuresed well, echo showed - EF 60-65%, impaired relaxation. his edema improved, sob improved. he is feeling much better and will be discharged home. will continue lasix 40mg daily, encouraged to keep low salt diet. Time Spent with Patient Time attestation: Total time spent providing and/or coordinating discharge services: Discharge coordination time: Greater than 30 minutes Quality: Stroke Does the patient have a stroke diagnosis?: No Physical Exam Vital Signs: Vital Signs: Last Vital Signs Temp 97 F 05/02/21 07:07 Pulse 67 05/02/21 08:34 Resp 20 05/02/21 07:07 BP 160/68 H 05/02/21 08:34 Pulse Ox 94 05/02/21 07:07 Body Mass Index 32.8 General: AO X 3, no acute distress Resp: CTA bilateral, no accessory muscles used CVS: S1,S2,RRR, 1-2+ edema GI: soft, non tender, non distended Neuro: motor grossly intact, alert Psych: appropriate affect, appropriate insight DS: Data Data Completed and Pending Labs on day of discharge: Laboratory Results - last 24 hr 05/01/21 05/01/21 05/01/21 11:36 16:19 20:11 Sodium Potassium Chloride Carbon Dioxide Anion Gap BUN Creatinine Estim Creat Clear Calc Estimated GFR POC Glucose 246 H 142 H 231 H Random Glucose Calcium Magnesium B-Natriuretic Peptide 05/02/21 05/02/21 05/02/21 06:02 06:02 07:07 Sodium 143 Potassium 3.8 Chloride 101 Carbon Dioxide 30 H Anion Gap 16 BUN 31 H Creatinine 1.58 H Estim Creat Clear Calc 37.7 Estimated GFR 42 POC Glucose 89 Random Glucose 91 D Calcium 9.3 Magnesium 1.9 B-Natriuretic Peptide 104 H Discharge Plan Discharge Patient Disposition: Home Health Service Discharge Diagnosis: chf Referrals: [facility] [Other] - 1 Week Gonzales oRss MD [Primary Care Provider] - 1 Week Discharge Medications: Continued losartan 50 mg tablet 50 mg PO QAM RF: 0 furosemide 40 mg tablet 40 mg PO QAM RF: 0 atorvastatin 80 mg tablet 80 mg PO BEDTIME RF: 0 metoprolol succinate 50 mg tablet extended release 24 hr 50 mg PO QAM RF: 0 aspirin 81 mg tablet,delayed release (DR/EC) 81 mg PO QAM RF: 0 amlodipine 10 mg tablet 10 mg PO BEDTIME RF: 0 glimepiride 4 mg tablet 4 mg PO QAM RF: 0 omeprazole 20 mg capsule,delayed release(DR/EC) 20 mg PO QAM RF: 0 hydralazine 50 mg tablet 50 mg PO BID RF: 0 insulin asp prt-insulin aspart [Novolog Mix 70-30FlexPen U-100] 100 unit/mL (70-30) insulin pen 48 unit subcut QAM RF: 0 cholecalciferol (vitamin D3) 25 mcg (1,000 unit) tablet 25 mcg PO QAM RF: 0 insulin asp prt-insulin aspart [Novolog Mix 70-30FlexPen U-100] 100 unit/mL (70-30) insulin pen 37 unit subcut 1630 RF: 0 Discharge Orders: Discharge Order (Routine); Ordered 05/02/21 Ordered By: Xander Jacome Diet: advance to usual diet Activity on Discharge: As tolerated Stand Alone Forms: Patient Portal Discharge page Care Plan Goals: avoid fluid overload Health Concerns: chf Plan of Treatment: continue lasix, avoid salt Assessment: see above
--- NOTE | 2021-05-02 10:24 | MHC.CM.PN ---
Addendum entered by Varsha Flores 05/02/21 12:45: Patient is discharged today. He is not able to arrange a ride home today. C shuttle has been arranged to bring the pt home. Original Note: IMM 05/01/21 Male 80 DX CHF. He lives with a friend. DP home with services already in place. [facility] the agency. Family will provide transportation.
[2021-05-02 11:05] VITALS: BP 150/66; PULSE 50; RESP 19; TEMP 36.1; O2SAT 97
[2021-05-02 11:25] LABS: Glucose, Whole Blood 217 mg/dL (60-115)
[2021-05-02] MEDS: Insulin Lispro 100 UNIT/ML 3 ML VIAL SUBCUT (11:42)
== END 2021-05-02 13:55 | disposition home health service (06) | DRG 291 ==
LOC: HO.ED 15:16 → HO.EDOVER 15:38 → HO.IMC 17:08
PROVIDERS: Family Medicine; Physician Assistant; Admitting Provider Physician Assistant Medical; Emergency Provider Emergency Medicine Emergency Medical Services; PCP Internal Medicine; Visit Provider Internal Medicine
DX: I11.0 Hypertensive heart disease with heart failure (principal); I50.33 Acute on chronic diastolic (congestive) heart failure; C34.91 Malignant neoplasm of unspecified part of right bronchus or lung; Z86.73 Personal history of transient ischemic attack (TIA), and cerebral infarction without residual deficits; E78.5 Hyperlipidemia, unspecified; E11.9 Type 2 diabetes mellitus without complications; K21.9 Gastro-esophageal reflux disease without esophagitis; F03.90 Unspecified dementia, unspecified severity, without behavioral disturbance, psychotic disturbance, mood disturbance, and anxiety; Z20.822 Contact with and (suspected) exposure to COVID-19; Z87.891 Personal history of nicotine dependence; Z79.4 Long term (current) use of insulin; Z79.82 Long term (current) use of aspirin; Z79.899 Other long term (current) drug therapy
CPT/HCPCS: 36415; 71046; 80048; 80076; 81001; 81003; 82947; 83036; 83735; 83880; 85025; 87635; 93005; 93306; 93970; 97161; 99285; J1650; J1940

== ENCOUNTER 2021-05-17 00:24 | Inpatient (IN) | payer MEDICARE, MEDICAID, SELFPAY ==
[2021-05-17] VITALS (10 sets, daily range): BP systolic 110–161; BP diastolic 39–73; PULSE 58–109; RESP 15–24; TEMP 36.6–39.3; O2SAT 88–99; BMI 30.2
--- NOTE | ~2021-05-17 | XR_ITS ---
EXAMINATION: XR CHEST CLINICAL INFORMATION: Weakness COMPARISON: 04/29/2021 TECHNIQUE: Frontal view of the chest was obtained. FINDINGS: Lung volumes are symmetric. There is patchy airspace opacity at the left lung base, new from 04/29/2021. There is also suggestion of minimal patchy opacity at the right lung base. No evidence of pneumothorax, significant pleural effusion, or overt pulmonary edema. The cardiomediastinal contour is unremarkable. Calcification is present at the aortic arch. No acute osseous findings are seen. XR/XR chest 1V IMPRESSION: Patchy bibasilar opacities, left greater than right, new from prior and concerning for developing pneumonia or sequelae of aspiration in the proper clinical setting.
--- NOTE | 2021-05-17 00:28 | ECG_ITS ---
Test Reason : weakness Blood Pressure : / mmHG Vent. Rate : 076 BPM Atrial Rate : 076 BPM P-R Int : 178 ms QRS Dur : 080 ms QT Int : 352 ms P-R-T Axes : 003 -08 017 degrees QTc Int : 396 ms Normal sinus rhythm Normal ECG When compared with ECG of 29-APR-2021 15:07, Premature ventricular complexes are no longer Present Referred By: Breanna Nicole Electronically Signed By:Mao Reddy
--- NOTE | 2021-05-17 00:38 | ED_ITS ---
HPI - Weakness General Chief complaint: Dyspnea Stated complaint: weakness Time Seen by Provider: 05/17/21 00:27 Source: patient and EMS Mode of arrival: EMS History of Present Illness HPI Narrative: 80-year-old male with history of COPD and CHF is brought in by EMS with initial call for knee pain and leg weakness and on arrival EMS noted that patient was face down on the bed and at 88% SpO2. They applied nasal cannula immediate response in oxygenation, on questioning patient denies feeling short of breath or having chest pain or palpitations. In addition, patient denies any new cough, abdominal pain, sore throat. Related Data Home Medications Medication Instructions Recorded Confirmed amlodipine 10 mg tablet 10 mg PO BEDTIME 03/07/21 05/17/21 aspirin 81 mg tablet,delayed 81 mg PO QAM 03/07/21 05/17/21 release atorvastatin 80 mg tablet 80 mg PO BEDTIME 03/07/21 05/17/21 cholecalciferol (vitamin D3) 25 25 mcg PO QAM 03/07/21 05/17/21 mcg (1,000 unit) tablet furosemide 40 mg tablet 40 mg PO QAM 03/07/21 05/17/21 glimepiride 4 mg tablet 4 mg PO QAM 03/07/21 05/17/21 hydralazine 50 mg tablet 50 mg PO BID 03/07/21 05/17/21 insulin aspar prot-insulin aspart 37 unit SUBCUT 1630 03/07/21 05/17/21 100 unit/mL (70-30) subcutaneous pen (Novolog Mix 70-30FlexPen U-100) insulin aspar prot-insulin aspart 48 unit SUBCUT QA 03/07/21 05/17/21 100 unit/mL (70-30) subcutaneous pen (Novolog Mix 70-30FlexPen U-100) losartan 50 mg tablet 50 mg PO QAM 03/07/21 05/17/21 metoprolol succinate 50 mg 50 mg PO QAM 03/07/21 05/17/21 tablet,extended release 24 hr omeprazole 20 mg capsule,delayed 20 mg PO QAM 03/07/21 05/17/21 release Allergies Allergy/AdvReac Type Severity Reaction Status Date / Time Penicillins [PENICILLINS] Allergy Intermediate RASH Verified 04/06/21 10:59 Review of Systems Review of Systems: Pertinent positives and negatives as stated in HPI 10 point review of systems is otherwise negative. [facility] Past Medical History Source: nursing notes reviewed Medical History Adenocarcinoma of right lung (~2020) COPD (chronic obstructive pulmonary disease) Dementia Diabetes Former smoker, stopped smoking in distant past History of CVA (cerebrovascular accident) (~07/2020) HTN (hypertension) Hyperlipidemia Pneumonia Surgical History History of lung biopsy (~10/2020) Social History Social History Household Members: Family Household Members Other:: step-son spends the night frequently Housing: House Do you presently have visiting nurse or other home services: Yes Alcohol intake: never Patient Tobacco Use Status: Former Tobacco user Advance Directives: No Advance Directives Information Provided: No Advance Directives Date on File: 08/31/20 service: No Current occupational status: retired and disabled Physical Exam Vital Signs: Vital Signs: Last Vital Signs Temp 101.1 F H 05/17/21 01:38 Pulse 66 05/17/21 01:38 Resp 22 H 05/17/21 01:38 BP 133/45 L 05/17/21 01:38 Pulse Ox 98 05/17/21 01:38 Oxygen Flow Rate 5 05/17/21 00:35 BMI result Body Mass Index 30.2 VITAL SIGNS: Reviewed. GENERAL: Elderly, chronically ill, in no acute distress. HEAD: Normocephalic/atraumatic EYES: PERRLA, EOMI OROPHARYNX: no oral lesions noted, posterior pharynx clear NECK: Supple, no adenopathy LUNGS: Coarse bibasilar rales, tachypnea, no retractions. SpO2<98> 3L nasal cannula CARDIOVASCULAR: Regular rate and rhythm without noted murmurs, no JVD but L>R 2+ pitting edema (venous duplex 04/29/2021 negative) ABDOMEN: Obese, Soft, non-tender, non-distended with bowel sounds. MUSCULOSKELETAL: No tenderness, deformities, or effusions noted on gross inspection. EXTREMITIES: No cyanosis, clubbing or edema. SKIN: Inspection of the skin reveals no rashes NEUROLOGIC: Alert and oriented x 2. Strength and sensation to light touch were grossly intact x 4. Course Course Course Narrative: 80-year-old male with history and clinical presentation consistent with possible COPD/CHF exacerbation, pneumonia given patient is febrile and clinically suspicious for CHF exacerbation and no focal findings. 0051: On review of all investigations patient is COVID-19 and responded well to antipyretic as well as 2 L nasal cannula. Therefore, this is not a sepsis case. This case was discussed with the inpatient hospitalist who accepts admission. MDM - Weakness Lab Data Result diagrams: 05/17/21 00:51 05/17/21 00:51 Labs: Lab Results 05/17/21 05/17/21 05/17/21 Range/Units 00:51 00:51 00:51 WBC 7.1 (4.8-10.8) X10*3/uL RBC 3.26 L (4.60-5.80) X10*6/uL Hgb 9.5 L (14.0-18.0) g/dl Hct 29.6 L (42.0-52.0) % MCV 90.8 (80.0-98.0) fL MCH 29.1 (27.0-33.0) pg MCHC 32.1 (31.0-36.0) g/dl RDW 14.6 (11.0-16.0) % Plt Count 228 (160-400) X10*3/uL MPV 10.1 (9.4-12.4) fL Immature Gran % (Auto) 0.4 (0.0-0.4) % Neut % (Auto) 78.7 H (45-73) % Lymph % (Auto) 11.9 L (20-40) % Ransom % (Auto) 8.8 (2-11) % Eos % (Auto) 0.1 (0-4) % Baso % (Auto) 0.1 (0-2) % Lymph # (Auto) 0.9 L (1.2-4.9) X10*3/uL Ransom # (Auto) 0.6 (0.1-1.2) X10*3/uL Eos # (Auto) 0.0 (0.0-0.4) X10*3/uL Baso # (Auto) 0.0 (0.0-0.2) X10*3/uL Abs Immat Gran (auto) 0.03 (0.00-0.03) X10*3/uL Absolute Neuts (auto) 5.6 (2.0-8.3) x10*3/uL Absolute Nucleated RBC 0.000 (0.0-0.012) X10*3/uL Nucleated RBC % (auto) 0.0 (0.0-0.2) /100WBC PT 13.1 H (9.9-13.0) SEC INR 1.2 H (0.9-1.1) VBG pH (7.32-7.43) VBG pCO2 mmHg VBG pO2 mmHg VBG HCO3 (22-26) mmol/L VBG O2 Saturation % VBG Base Excess mmol/L Sodium 142 (135-145) mmol/L Potassium 3.8 (3.3-5.1) mmol/L Chloride 107 (96-108) mmol/L Carbon Dioxide 25 (22-29) mmol/L Anion Gap 14 (12-20) BUN 24 H (9-16) mg/dL Creatinine 1.61 H (0.5-1.4) mg/dL Estim Creat Clear Calc 39.2 Estimated GFR 41 Random Glucose 75 (60-115) mg/dL Lactic Acid (0.5-2.0) mmol/L Calcium 8.8 (8.4-10.2) mg/dL Total Bilirubin 0.2 (0.0-1.0) mg/dL AST 43 H D (5-37) U/L ALT 21 (0-40) U/L Alkaline Phosphatase 102 (39-117) U/L B-Natriuretic Peptide (<100) pg/mL Total Protein 6.7 (6.5-8.0) g/dL Albumin 3.5 (3.5-5.0) g/dL Urine Color Urine Appearance Urine pH (5.0-8.0) Ur Specific Alber[place]on (1.005-1.025) Urine Protein (NEG-TRACE) MG/DL Urine Glucose (UA) (NEG) MG/DL Urine Ketones (NEG) MG/DL Urine Blood (NEG) Urine Nitrite (NEG) Ur Leukocyte Esterase (NEG) COVID-19 (SHANA) (Negative) COVID-19 Clin Com 05/17/21 05/17/21 05/17/21 Range/Units 00:51 00:51 00:51 WBC (4.8-10.8) X10*3/uL RBC (4.60-5.80) X10*6/uL Hgb (14.0-18.0) g/dl Hct (42.0-52.0) % MCV (80.0-98.0) fL MCH (27.0-33.0) pg MCHC (31.0-36.0) g/dl RDW (11.0-16.0) % Plt Count (160-400) X10*3/uL MPV (9.4-12.4) fL Immature Gran % (Auto) (0.0-0.4) % Neut % (Auto) (45-73) % Lymph % (Auto) (20-40) % Ransom % (Auto) (2-11) % Eos % (Auto) (0-4) % Baso % (Auto) (0-2) % Lymph # (Auto) (1.2-4.9) X10*3/uL Ransom # (Auto) (0.1-1.2) X10*3/uL Eos # (Auto) (0.0-0.4) X10*3/uL Baso # (Auto) (0.0-0.2) X10*3/uL Abs Immat Gran (auto) (0.00-0.03) X10*3/uL Absolute Neuts (auto) (2.0-8.3) x10*3/uL Absolute Nucleated RBC (0.0-0.012) X10*3/uL Nucleated RBC % (auto) (0.0-0.2) /100WBC PT (9.9-13.0) SEC INR (0.9-1.1) VBG pH (7.32-7.43) VBG pCO2 mmHg VBG pO2 mmHg VBG HCO3 (22-26) mmol/L VBG O2 Saturation % VBG Base Excess mmol/L Sodium (135-145) mmol/L Potassium (3.3-5.1) mmol/L Chloride (96-108) mmol/L Carbon Dioxide (22-29) mmol/L Anion Gap (12-20) BUN (9-16) mg/dL Creatinine (0.5-1.4) mg/dL Estim Creat Clear Calc Estimated GFR Random Glucose (60-115) mg/dL Lactic Acid 1.5 (0.5-2.0) mmol/L Calcium (8.4-10.2) mg/dL Total Bilirubin (0.0-1.0) mg/dL AST (5-37) U/L ALT (0-40) U/L Alkaline Phosphatase (39-117) U/L B-Natriuretic Peptide 76 (<100) pg/mL Total Protein (6.5-8.0) g/dL Albumin (3.5-5.0) g/dL Urine Color Urine Appearance Urine pH (5.0-8.0) Ur Specific Alber[place]on (1.005-1.025) Urine Protein (NEG-TRACE) MG/DL Urine Glucose (UA) (NEG) MG/DL Urine Ketones (NEG) MG/DL Urine Blood (NEG) Urine Nitrite (NEG) Ur Leukocyte Esterase (NEG) COVID-19 (SHANA) Positive A (Negative) COVID-19 Clin Com See Note 05/17/21 05/17/21 Range/Units 00:55 01:40 WBC (4.8-10.8) X10*3/uL RBC (4.60-5.80) X10*6/uL Hgb (14.0-18.0) g/dl Hct (42.0-52.0) % MCV (80.0-98.0) fL MCH (27.0-33.0) pg MCHC (31.0-36.0) g/dl RDW (11.0-16.0) % Plt Count (160-400) X10*3/uL MPV (9.4-12.4) fL Immature Gran % (Auto) (0.0-0.4) % Neut % (Auto) (45-73) % Lymph % (Auto) (20-40) % Ransom % (Auto) (2-11) % Eos % (Auto) (0-4) % Baso % (Auto) (0-2) % Lymph # (Auto) (1.2-4.9) X10*3/uL Ransom # (Auto) (0.1-1.2) X10*3/uL Eos # (Auto) (0.0-0.4) X10*3/uL Baso # (Auto) (0.0-0.2) X10*3/uL Abs Immat Gran (auto) (0.00-0.03) X10*3/uL Absolute Neuts (auto) (2.0-8.3) x10*3/uL Absolute Nucleated RBC (0.0-0.012) X10*3/uL Nucleated RBC % (auto) (0.0-0.2) /100WBC PT (9.9-13.0) SEC INR (0.9-1.1) VBG pH 7.41 (7.32-7.43) VBG pCO2 47 mmHg VBG pO2 66 mmHg VBG HCO3 30 H (22-26) mmol/L VBG O2 Saturation 89.0 % VBG Base Excess 5.1 mmol/L Sodium (135-145) mmol/L Potassium (3.3-5.1) mmol/L Chloride (96-108) mmol/L Carbon Dioxide (22-29) mmol/L Anion Gap (12-20) BUN (9-16) mg/dL Creatinine (0.5-1.4) mg/dL Estim Creat Clear Calc Estimated GFR Random Glucose (60-115) mg/dL Lactic Acid (0.5-2.0) mmol/L Calcium (8.4-10.2) mg/dL Total Bilirubin (0.0-1.0) mg/dL AST (5-37) U/L ALT (0-40) U/L Alkaline Phosphatase (39-117) U/L B-Natriuretic Peptide (<100) pg/mL Total Protein (6.5-8.0) g/dL Albumin (3.5-5.0) g/dL Urine Color YELLOW Urine Appearance CLEAR Urine pH 6.0 (5.0-8.0) Ur Specific [employer] 1.025 (1.005-1.025) Urine Protein 2+ H (NEG-TRACE) MG/DL Urine Glucose (UA) NEG (NEG) MG/DL Urine Ketones NEG (NEG) MG/DL Urine Blood 1+ H (NEG) Urine Nitrite NEG (NEG) Ur Leukocyte Esterase NEG (NEG) COVID-19 (SHANA) (Negative) COVID-19 Clin Com ECG Data Attestation: I personally reviewed and interpreted this ECG as follows: Prior ECG tracings: available for review (04/29/21) Interpretation: Normal sinus rhythm, HR-76, no STEMI, [place]/QRS/QTC are within normal limits. Discharge Plan Discharge Clinical Impression: Pneumonia due to COVID-19 virus, Hypoxia Patient Disposition: Admitted As Inpatient
[2021-05-17] MEDS: Acetaminophen 325 MG TABLET 975 MG PO (00:42)
[2021-05-17 00:58] LABS: Basophils Percent Auto 0.1 % (0-2); Eosinophils Percent Auto 0.1 % (0-4); Hematocrit 29.6 % (42.0-52.0); Hemoglobin 9.5 g/dl (14.0-18.0); Imm Gran Abs Auto 0.03 X10*3/uL (0.00-0.03); Imm Gran Pct Auto 0.4 % (0.0-0.4); Lymphocytes Absolute Auto 0.9 X10*3/uL (1.2-4.9); Lymphocytes Percent Auto 11.9 % (20-40); MANUAL DIFF FLAG NO; Mean Corpuscular HGB Conc 32.1 g/dl (31.0-36.0); Mean Corpuscular Hemoglobin 29.1 pg (27.0-33.0); Mean Corpuscular Volume 90.8 fL (80.0-98.0); Mean Platelet Volume 10.1 fL (9.4-12.4); Monocytes Absolute Auto 0.6 X10*3/uL (0.1-1.2); Monocytes Percent Auto 8.8 % (2-11); Neutrophils Absolute Auto 5.6 x10*3/uL (2.0-8.3); Neutrophils Percent Auto 78.7 % (45-73); Platelet Count 228 X10*3/uL (160-400); Red Blood Count 3.26 X10*6/uL (4.60-5.80); Red Cell Distribution Width 14.6 % (11.0-16.0); White Blood Count 7.1 X10*3/uL (4.8-10.8)
[2021-05-17 01:01] LABS: VBG Base Excess 5.1 mmol/L; VBG HCO3 30 mmol/L (22-26); VBG pCO2 47 mmHg; VBG pH 7.41 (7.32-7.43); VBG pO2 66 mmHg
[2021-05-17 01:02] LABS: Venous Blood Gas Refer to POC result
[2021-05-17 01:03] LABS: INTERNATIONAL NORM RATIO 1.2 (0.9-1.1); Prothrombin Time 13.1 SEC (9.9-13.0)
[2021-05-17 01:08] LABS: COVID-19 Test Positive (Negative)
[2021-05-17 01:11] LABS: Lactic Acid 1.5 mmol/L (0.5-2.0)
[2021-05-17 01:18] LABS: Alanine Aminotransferase 21 U/L (0-40); Albumin Level 3.5 g/dL (3.5-5.0); Alkaline Phosphatase 102 U/L (39-117); Anion Gap 14 (12-20); Aspartate Amino Transferase 43 U/L (5-37); Bilirubin Total 0.2 mg/dL (0.0-1.0); Blood Urea Nitrogen 24 mg/dL (9-16); Calcium 8.8 mg/dL (8.4-10.2); Carbon Dioxide 25 mmol/L (22-29); Chloride 107 mmol/L (96-108); Creatinine Clr Calc Pharmacy 39.2; Estimated Glomerular Filt Rate 41; Glucose Random 75 mg/dL (60-115); Potassium 3.8 mmol/L (3.3-5.1); Sodium 142 mmol/L (135-145); Total Protein 6.7 g/dL (6.5-8.0)
[2021-05-17 01:19] LABS: B Type Natriuretic Peptide 76 pg/mL (<100)
[2021-05-17 01:52] LABS: Appearance Urine CLEAR; Color Urine YELLOW; Glucose Urine UA NEG (NEG); Leukocyte Esterase Urine NEG (NEG); Nitrite Urine NEG (NEG); Specific Gravity - Urine 1.025 (1.005-1.025); UACC Culture Trigger NO; Urine Blood 1+ (NEG); Urine Ketones NEG (NEG); Urine Protein 2+ MG/DL (NEG-TRACE)
--- NOTE | 2021-05-17 01:57 | P.HPHOSP_ITS ---
History of Present Illness Date of Service: 05/17/21 Chief Complaint: Gen Weakness 80-year-old male with a past medical history of hypertension, hyperlipidemia, diabetes, CHF, COPD, CVA, dementia, history of lung cancer presented to the hospital with a chief complaint of generalized weakness/ bilateral leg pain; Patient denies any chest pain palpitations lightheadedness or dizziness. Denies any fever chills cough or shortness of breath. Denies any GI or symptoms. Review of all other systems is negative except mentioned above ER course: Per ER team when EMS saw the patient patient was saturating 88% on room air; placed on supplemental oxygen subsequent gotten to the hospital for further evaluation. On presentation patient noted to be febrile and has coarse breath sounds; Chest x-ray showed patchy opacities consistent COVID-19; COVID-19 rapid test came back positive. Admitted to the hospital for further management. [facility] Medical History Adenocarcinoma of right lung (~2020) COPD (chronic obstructive pulmonary disease) Dementia Diabetes Former smoker, stopped smoking in distant past History of CVA (cerebrovascular accident) (~07/2020) HTN (hypertension) Hyperlipidemia Pneumonia Surgical History History of lung biopsy (~10/2020) Social History Household Members: Spouse Household Members Other:: step-son spends the night frequently Housing: Apartment Do you presently have visiting nurse or other home services: Yes Alcohol intake: never Patient Tobacco Use Status: Former Tobacco user Advance Directives Date on File: 08/31/20 service: No Current occupational status: retired and disabled Meds Allergies Allergy/AdvReac Type Severity Reaction Status Date / Time Penicillins [PENICILLINS] Allergy Intermediate RASH Verified 04/06/21 10:59 Active Medications: Current Medications Acetaminophen (Acetaminophen 325 Mg Tablet) 650 mg PO Q6H PRN PRN Reason: Pain, Mild (Pain Scale 1-3) Enoxaparin Sodium (Enoxaparin Sodium 40 Mg/0.4 Ml Syringe) 40 mg SUBCUT Q24H EBER Melatonin (Melatonin 3 Mg Tablet) 6 mg PO BEDTIME PRN PRN Reason: Insomnia Morphine Sulfate (Morphine Sulfate 4 Mg/Ml Cartridge) 1 mg IVPUSH Q4H PRN; Protocol PRN Reason: Pain, SOB Senna (Sennosides 8.6 Mg Tablet) 17.2 mg PO BEDTIME PRN PRN Reason: Constipation Sodium Chloride (0.9 % Sodium Chloride Flush 3 Ml Syringe) 3 ml IVFLUSH [facility] Home Medications Medication Instructions Recorded Confirmed Last Taken Type amlodipine 10 mg tablet 10 mg PO BEDTIME 03/07/21 05/17/21 05/16/21 History aspirin 81 mg tablet,delayed 81 mg PO QAM 03/07/21 05/17/21 05/16/21 History release atorvastatin 80 mg tablet 80 mg PO BEDTIME 03/07/21 05/17/21 05/16/21 History cholecalciferol (vitamin D3) 25 25 mcg PO QAM 03/07/21 05/17/21 05/16/21 History mcg (1,000 unit) tablet furosemide 40 mg tablet 40 mg PO QAM 03/07/21 05/17/21 05/16/21 History glimepiride 4 mg tablet 4 mg PO QAM 03/07/21 05/17/21 05/16/21 History hydralazine 50 mg tablet 50 mg PO BID 03/07/21 05/17/21 05/16/21 History insulin aspar prot-insulin aspart 37 unit SUBCUT 1630 03/07/21 05/17/21 05/16/21 History 100 unit/mL (70-30) subcutaneous pen (Novolog Mix 70-30FlexPen U-100) insulin aspar prot-insulin aspart 48 unit SUBCUT QA 03/07/21 05/17/21 05/16/21 History 100 unit/mL (70-30) subcutaneous pen (Novolog Mix 70-30FlexPen U-100) losartan 50 mg tablet 50 mg PO QAM 03/07/21 05/17/21 05/16/21 History metoprolol succinate 50 mg 50 mg PO QAM 03/07/21 05/17/21 05/16/21 History tablet,extended release 24 hr omeprazole 20 mg capsule,delayed 20 mg PO QAM 03/07/21 05/17/21 05/16/21 History release Physical Exam Vital Signs and Narrative: Vital Signs: Last Vital Signs Temp 101.1 F H 12/09/21 01:38 Pulse 66 05/17/21 01:38 Resp 22 H 05/17/21 01:38 BP 133/45 L 05/17/21 01:38 Pulse Ox 98 05/17/21 01:38 Oxygen Flow Rate 5 05/17/21 00:35 BMI result Body Mass Index 30.2 Gen: Appears be in no acute distress HEENT: NCAT, Moist mucosa. Pulmonary: Coarse breath sounds, fair air entry CVS: Normal S1-S2 Abdomen: BS+, Soft, Nontender Extremities: Warm well perfused Neuro: Alert and awake. Results Labs CBC and Chem 7: 05/21/21 05:50 05/21/21 05:50 Labs: Laboratory Results - last 24 hr 05/17/21 05/17/21 05/17/21 00:51 00:51 00:51 MCV 90.8 MCH 29.1 MCHC 32.1 RDW 14.6 Plt Count 228 MPV 10.1 Immature Gran % (Auto) 0.4 Neut % (Auto) 78.7 H Lymph % (Auto) 11.9 L Mclennan % (Auto) 8.8 Eos % (Auto) 0.1 Baso % (Auto) 0.1 Lymph # (Auto) 0.9 L Mclennan # (Auto) 0.6 Eos # (Auto) 0.0 Baso # (Auto) 0.0 Abs Immat Gran (auto) 0.03 Absolute Neuts (auto) 5.6 Absolute Nucleated RBC 0.000 Nucleated RBC % (auto) 0.0 PT 13.1 H INR 1.2 H VBG pH VBG pCO2 VBG pO2 VBG HCO3 VBG O2 Saturation VBG Base Excess Anion Gap 14 Estim Creat Clear Calc 39.2 Estimated GFR 41 Random Glucose 75 Lactic Acid Calcium 8.8 Total Bilirubin 0.2 AST 43 H D ALT 21 Alkaline Phosphatase 102 B-Natriuretic Peptide Total Protein 6.7 Albumin 3.5 COVID-19 (SHANA) COVID-19 Clin Com 05/17/21 05/17/21 05/17/21 00:51 00:51 00:51 MCV MCH MCHC RDW Plt Count MPV Immature Gran % (Auto) Neut % (Auto) Lymph % (Auto) Mclennan % (Auto) Eos % (Auto) Baso % (Auto) Lymph # (Auto) Mclennan # (Auto) Eos # (Auto) Baso # (Auto) Abs Immat Gran (auto) Absolute Neuts (auto) Absolute Nucleated RBC Nucleated RBC % (auto) PT INR VBG pH VBG pCO2 VBG pO2 VBG HCO3 VBG O2 Saturation VBG Base Excess Anion Gap Estim Creat Clear Calc Estimated GFR Random Glucose Lactic Acid 1.5 Calcium Total Bilirubin AST ALT Alkaline Phosphatase B-Natriuretic Peptide 76 Total Protein Albumin COVID-19 (SHANA) Positive A COVID-19 Clin Com See Note 05/17/21 00:55 MCV MCH MCHC RDW Plt Count MPV Immature Gran % (Auto) Neut % (Auto) Lymph % (Auto) Mclennan % (Auto) Eos % (Auto) Baso % (Auto) Lymph # (Auto) Mclennan # (Auto) Eos # (Auto) Baso # (Auto) Abs Immat Gran (auto) Absolute Neuts (auto) Absolute Nucleated RBC Nucleated RBC % (auto) PT INR VBG pH 7.41 VBG pCO2 47 VBG pO2 66 VBG HCO3 30 H VBG O2 Saturation 89.0 VBG Base Excess 5.1 Anion Gap Estim Creat Clear Calc Estimated GFR Random Glucose Lactic Acid Calcium Total Bilirubin AST ALT Alkaline Phosphatase B-Natriuretic Peptide Total Protein Albumin COVID-19 (SHANA) COVID-19 Clin Com Imaging Radiologist's Impressions: Impressions Chest X-Ray 05/17/21 00:45 IMPRESSION: Patchy bibasilar opacities, left greater than right, new from prior and concerning for developing pneumonia or sequelae of aspiration in the proper clinical setting. Assessment and Plan (1) Pneumonia due to COVID-19 virus: Status: Acute 80-year-old male with a past medical history of hypertension, hyperlipidemia, diabetes, CHF, COPD, CVA, dementia, history of lung cancer presented to the hospital with a chief complaint of generalized weakness/ bilateral leg pain; noted to be febrile in COVID-19 positive. Admitted to the hospital for further management. Acute hypoxic respiratory failure: In the setting of COVID-19 pneumonia. Patient is saturating well on 3 L of supplemental oxygen. Noted in respiratory distress. Supportive care. COVID-19 pneumonia: Will give the patient Decadron 6 mg daily. Will also cover for any superimposed bacterial infection with Levaquin. Id consult for further recommendations. ELIZABETH on CKD: Patient's creatinine on presentation is 1.6. Patient's prior creatinine noted to be between 1.2-1.3. Avoid nephrotoxins History of CHF: Stable. Continue home Lasix. History of COPD: Stable. History of diabetes: Will give the patient on Lantus 20 units b.i.d. and insulin sliding scale. Monitor fingerstick glucose. Hold home oral hypoglycemic agents. History of hypertension / hyperlipidemia: Continue home metoprolol, amlodipine, statin. hold losartan. DVT prophylaxis: Lovenox Code status: Full code Quality Stroke Does the patient have a stroke diagnosis?: No VTE Prior VTE?: No VTE Risk Level:: Medical - moderate - high VTE Device Contraindication: Treatment Not Indicated VTE Drug Contraindication: N/A - Med Ordered
[2021-05-17 02:07] LABS: Bacteria Urine 1+ /LPF; Hyaline Casts Urine 0-2 /LPF; Squamous Epithelial Cell Urine 1+ /LPF
--- NOTE | 2021-05-17 02:30 | PC.NURSE ---
pt asleep in room vital signs stable will continue to monitor
[2021-05-17] MEDS: levoFLOXacin 500 MG TABLET PO (03:42)
[2021-05-17] MEDS: Enoxaparin Sodium 40 MG/0.4 ML SYRINGE SUBCUT (03:42)
[2021-05-17 06:55] LABS: Basophils Percent Auto 0.2 % (0-2); Eosinophils Percent Auto 0.2 % (0-4); Hematocrit 29.5 % (42.0-52.0); Hemoglobin 9.2 g/dl (14.0-18.0); Imm Gran Abs Auto 0.03 X10*3/uL (0.00-0.03); Imm Gran Pct Auto 0.4 % (0.0-0.4); Lymphocytes Absolute Auto 1.7 X10*3/uL (1.2-4.9); Lymphocytes Percent Auto 21.1 % (20-40); MANUAL DIFF FLAG NO; Mean Corpuscular HGB Conc 31.2 g/dl (31.0-36.0); Mean Corpuscular Hemoglobin 28.3 pg (27.0-33.0); Mean Corpuscular Volume 90.8 fL (80.0-98.0); Mean Platelet Volume 10.6 fL (9.4-12.4); Monocytes Absolute Auto 0.7 X10*3/uL (0.1-1.2); Monocytes Percent Auto 8.9 % (2-11); Neutrophils Absolute Auto 5.7 x10*3/uL (2.0-8.3); Neutrophils Percent Auto 69.2 % (45-73); Platelet Count 226 X10*3/uL (160-400); Red Blood Count 3.25 X10*6/uL (4.60-5.80); Red Cell Distribution Width 14.6 % (11.0-16.0); White Blood Count 8.2 X10*3/uL (4.8-10.8)
[2021-05-17] MEDS: Aspirin Enteric Coated 81 MG TABLET.DR PO (10:00)
[2021-05-17] MEDS: Furosemide 40 MG TABLET PO (10:00)
[2021-05-17] MEDS: Metoprolol Succinate ER 50 MG TAB.ER.24H PO (10:00)
[2021-05-17] MEDS: hydrALAZINE HCl 50 MG TABLET PO ×2 (10:01→22:42)
[2021-05-17] MEDS: Omeprazole 20 MG CAPSULE.DR PO (10:01)
[2021-05-17] MEDS: 0.9 % Sodium Chloride Flush 3 ML SYRINGE IVFLUSH ×2 (10:01→18:20)
[2021-05-17] MEDS: Cholecalciferol (Vitamin D3) 25 MCG TABLET PO (10:01)
[2021-05-17] MEDS: Acetaminophen 325 MG TABLET 650 MG PO ×2 (10:16→16:09)
--- NOTE | 2021-05-17 10:18 | PC.NURSE ---
repeat poc 87, long acting insulin held. temp 99.9 now, apap given, ate 60% breakfast
--- NOTE | 2021-05-17 11:17 | PC.NURSE ---
son called this am and is requesting rehab for the father when he is discharged from the hospital.
--- NOTE | 2021-05-17 12:49 | MHC.CM.PN ---
this interview was conducted through the pt's step daughter, jake harvey (ph: [phone]). pt is from [place] , he has no family here in the [place] except his , step daughter and step grandaughter. he lives in an apt c his . his step daughter jake is his HCP (copy of hcp requested) and a cares for patient and her mother, both of them need help c their care. jake's daughter is a drama teacher for [employer] through [employer] for 1hr/day. they are currently trying to get an increase in [place] hrs c the help of pt's pcp which dr. latif name at [facility]. pt is active [facility] [place] a ref. to this agency has been made. as reported by jake the patient has dementia and requires constant reminding and direction. he uses a walker and is still unsteady on his feet and considered a fall risk by jake who also works as a drama teacher for 30 + yrs. pt did recieve 2 pfizer vaccines completed sometime last spring but has not been boosted. jake prefers to have the patient return home at dc c his current svcs, however she says that if pt would benefit from going to STR then she would support that. she would like to make this decision when we get closer to the dc date depending on his condition then. dc plan is uncertain at this time pending further evaluation, most likely to STR vs return home c [facility] and drama teacher. cm to cont. to follow.
[2021-05-17] MEDS: dexAMETHasone sod phosphate 4 MG/ML VIAL 6 MG IVPUSH (13:18)
[2021-05-17 13:42] LABS: Glucose, Whole Blood 40 mg/dL (60-115)
[2021-05-17 13:42] LABS: Glucose, Whole Blood 124 mg/dL (60-115)
[2021-05-17 13:42] LABS: Glucose, Whole Blood 87 mg/dL (60-115)
--- NOTE | 2021-05-17 16:07 | PC.NURSE ---
Pt repositioned, states he feels like he can't breath, SPO2 96% at this time. Verbal reassurance provided. Medicated w PO APAP for fever 101.5Will continue to monitor.
--- NOTE | 2021-05-17 16:51 | PC.NURSE ---
PATIENT BEDDING WAS CHANGE AND PATIENT WAS REPOSITION .
[2021-05-17 17:59] LABS: Glucose, Whole Blood 247 mg/dL (60-115)
[2021-05-17] MEDS: Insulin Lispro 100 UNIT/ML 3 ML VIAL SUBCUT ×2 (18:21→22:43)
--- NOTE | 2021-05-17 21:02 | PC.NURSE ---
Pt w/ decreased respiratory difficulty, endorses relief s/p nebulizer administration. Remains attached to monitor
[2021-05-17 21:42] LABS: Glucose, Whole Blood 344 mg/dL (60-115)
[2021-05-17] MEDS: amLODIPine Besylate 10 MG TABLET PO (22:42)
[2021-05-17] MEDS: Insulin Glargine,Hum.rec.anlog 100 UNIT/ML 10 ML VIAL 20 UNIT SUBCUT (22:42)
[2021-05-17] MEDS: Atorvastatin Calcium 80 MG TABLET PO (22:42)
[2021-05-18] VITALS (9 sets, daily range): BP systolic 138–160; BP diastolic 41–61; PULSE 65–81; RESP 12–21; TEMP 37.1–37.9; O2SAT 93–99
[2021-05-18 06:44] LABS: Hematocrit 30.3 % (42.0-52.0); Hemoglobin 9.7 g/dl (14.0-18.0); Mean Corpuscular Hemoglobin 28.5 pg (27.0-33.0); Mean Corpuscular Volume 89.1 fL (80.0-98.0); Mean Platelet Volume 10.6 fL (9.4-12.4); Platelet Count 247 X10*3/uL (160-400); Red Cell Distribution Width 14.3 % (11.0-16.0); White Blood Count 10.2 X10*3/uL (4.8-10.8)
[2021-05-18 07:07] LABS: Anion Gap 13 (12-20); Blood Urea Nitrogen 29 mg/dL (9-16); Calcium 8.8 mg/dL (8.4-10.2); Carbon Dioxide 27 mmol/L (22-29); Chloride 102 mmol/L (96-108); Creatinine Clr Calc Pharmacy 39.4; Estimated Glomerular Filt Rate 42; Glucose Fasting 270 mg/dL (60-99); Potassium 3.8 mmol/L (3.3-5.1); Sodium 138 mmol/L (135-145)
[2021-05-18 07:55] LABS: Glucose, Whole Blood 230 mg/dL (60-115)
[2021-05-18] MEDS: Insulin Glargine,Hum.rec.anlog 100 UNIT/ML 10 ML VIAL 20 UNIT SUBCUT ×2 (08:51→20:42)
[2021-05-18] MEDS: Insulin Lispro 100 UNIT/ML 3 ML VIAL SUBCUT ×4 (08:52→20:59)
[2021-05-18] MEDS: Metoprolol Succinate ER 50 MG TAB.ER.24H PO (08:53)
[2021-05-18] MEDS: Acetaminophen 325 MG TABLET 650 MG PO (08:53)
[2021-05-18] MEDS: Aspirin Enteric Coated 81 MG TABLET.DR PO (08:53)
[2021-05-18] MEDS: Cholecalciferol (Vitamin D3) 25 MCG TABLET PO (08:54)
[2021-05-18] MEDS: Omeprazole 20 MG CAPSULE.DR PO (08:54)
[2021-05-18] MEDS: Furosemide 40 MG TABLET PO (08:54)
[2021-05-18] MEDS: dexAMETHasone sod phosphate 4 MG/ML VIAL 6 MG IVPUSH (08:55)
[2021-05-18] MEDS: hydrALAZINE HCl 50 MG TABLET PO ×2 (08:57→20:42)
[2021-05-18] MEDS: 0.9 % Sodium Chloride Flush 3 ML SYRINGE IVFLUSH (08:58)
--- NOTE | 2021-05-18 10:18 | PC.NURSE ---
pt's gave his family member kevin carmona his ebt card.
--- NOTE | 2021-05-18 11:22 | P.PNIM_ITS ---
Subjective Subjective Date of Service: 05/18/21 Interval History: cc: weakness interval history: weakness about the same, some right foot pain Cardiovascular Cardiovascular: Reports no additional cardiovascular complaints Respiratory Respiratory: Reports no additional respiratory complaints Physical Exam Vital Signs: Vital Signs: Last Vital Signs Temp 99.3 F 05/18/21 11:15 Pulse 65 05/18/21 11:15 Resp 21 H 05/18/21 11:15 BP 154/56 H 05/18/21 11:15 Pulse Ox 95 05/18/21 11:15 Oxygen Flow Rate 5 05/17/21 00:35 BMI result Body Mass Index 30.2 General: AO X 3, no acute distress Resp: diminihsed bilateral, no accessory muscles used CVS: S1,S2,RRR GI: soft, non tender, non distended Neuro: motor grossly intact, alert Psych: appropriate affect, appropriate insight Objective Data Active Medications Acetaminophen (Acetaminophen 325 Mg Tablet) 650 mg PO Q6H PRN PRN Reason: Pain, Mild (Pain Scale 1-3) Last Admin: 05/18/21 08:53 Dose: 650 mg Documented by: DENI Amlodipine Besylate (Amlodipine Besylate 10 Mg Tablet) 10 mg PO BEDTIME [facility]; Protocol Last Admin: 05/17/21 22:42 Dose: 10 mg Documented by: ANSHUL Aspirin (Aspirin Enteric Coated 81 Mg Tablet.) 81 mg PO 0800 [facility] Last Admin: 05/18/21 08:53 Dose: 81 mg Documented by: DENI Atorvastatin Calcium (Atorvastatin Calcium 80 Mg Tablet) 80 mg PO BEDTIME [facility] Last Admin: 05/17/21 22:42 Dose: 80 mg Documented by: ANSHUL Dexamethasone Sodium Phosphate (Dexamethasone Sod Phosphate 4 Mg/Ml Vial) 6 mg IVPUSH DAILY [facility] Last Admin: 05/18/21 08:55 Dose: 6 mg Documented by: DENI Dextrose (Dextrose 50 % 25 Gm/50 Ml Vial) 25 gm IVPUSH Q15M PRN; Protocol PRN Reason: per Hypoglycemia Standing Ord. Enoxaparin Sodium (Enoxaparin Sodium 40 Mg/0.4 Ml Syringe) 40 mg SUBCUT Q24H [facility] Last Admin: 05/18/21 04:16 Dose: Not Given Documented by: ANSHUL Non-Admin Reason: Patient Asleep Furosemide (Furosemide 40 Mg Tablet) 40 mg PO 0800 [facility]; Protocol Last Admin: 05/18/21 08:54 Dose: 40 mg Documented by: DENI Glucose (Glucose Gel 15 Gm Gel..Gram.) 15 gm PO Q15M PRN; Protocol PRN Reason: per Hypoglycemia Standing Ord. Hydralazine HCl (Hydralazine Hcl 50 Mg Tablet) 50 mg PO BID [facility]; Protocol Last Admin: 05/18/21 08:57 Dose: 50 mg Documented by: DENI Insulin Glargine (Insulin Glargine,Hum.Rec.Anlog 100 Unit/Ml 10 Ml Vial) 20 unit SUBCUT BID [facility] Last Admin: 05/18/21 08:51 Dose: 20 unit Documented by: DENI Insulin Human Lispro (Insulin Lispro 100 Unit/Ml 3 Ml Vial) 0 unit SUBCUT QIDACHS [facility]; Protocol Last Admin: 05/18/21 08:52 Dose: 4 unit Documented by: DENI Melatonin (Melatonin 3 Mg Tablet) 6 mg PO BEDTIME PRN PRN Reason: Insomnia Metoprolol Succinate (Metoprolol Succinate Er 50 Mg Tab.Er.24h) 50 mg PO 0800 [facility]; Protocol Last Admin: 05/18/21 08:53 Dose: 50 mg Documented by: DENI Morphine Sulfate (Morphine Sulfate 4 Mg/Ml Cartridge) 1 mg IVPUSH Q4H PRN; Protocol PRN Reason: Pain, SOB Omeprazole (Omeprazole 20 Mg Capsule.Dr) 20 mg PO 0800 [facility] Last Admin: 05/18/21 08:54 Dose: 20 mg Documented by: DENI Senna (Sennosides 8.6 Mg Tablet) 17.2 mg PO BEDTIME PRN PRN Reason: Constipation Sodium Chloride (0.9 % Sodium Chloride Flush 3 Ml Syringe) 3 ml IVFLUSH QSHIFT [facility] Last Admin: 05/18/21 08:58 Dose: 3 ml Documented by: DENI Vitamin D (Cholecalciferol (Vitamin D3) 25 Mcg Tablet) 25 mcg PO 0800 [facility] Last Admin: 05/18/21 08:54 Dose: 25 mcg Documented by: DENI Labs CBC & Chem 7: 05/18/21 06:37 05/18/21 06:37 Labs: Laboratory Results - last 24 hr 05/17/21 05/17/21 05/17/21 09:52 10:17 13:22 MCV MCH MCHC RDW Plt Count MPV Absolute Nucleated RBC Nucleated RBC % (auto) Anion Gap Estim Creat Clear Calc Estimated GFR POC Glucose 40 L* 87 124 H Fasting Glucose Calcium 05/17/21 05/17/21 05/18/21 16:37 21:38 06:37 MCV 89.1 MCH 28.5 MCHC 32.0 RDW 14.3 Plt Count 247 MPV 10.6 Absolute Nucleated RBC 0.000 Nucleated RBC % (auto) 0.0 Anion Gap Estim Creat Clear Calc Estimated GFR POC Glucose 247 H 344 H Fasting Glucose Calcium 05/18/21 05/18/21 06:37 07:47 MCV MCH MCHC RDW Plt Count MPV Absolute Nucleated RBC Nucleated RBC % (auto) Anion Gap 13 Estim Creat Clear Calc 39.4 Estimated GFR 42 POC Glucose 230 H Fasting Glucose 270 H Calcium 8.8 Microbiology Microbiology Results: Microbiology 05/17/21 00:51 Blood Culture - Preliminary Blood - Venous No growth after 24 hours. 05/17/21 00:51 Blood Culture - Preliminary Blood - Venous No growth after 24 hours. Assessment and Plan (1) Pneumonia due to COVID-19 virus: Status: Acute Assessment and Plan: 80M presented with weakness, found to have covid acute hypoxic respiratory failure and viral sepsis due to covid pneumonia continue decadron day 2 no evidence of bacterial superinfection - levaquin dced CKD III at baseline monitor chronic HFpEF continue lasix 40mg po HTN continue amlodipine, metoprolol, hydralazine hx CVA -continue statin + ASA DM2 basal/bolus insulin monitor poc lung CA diagnosed on FNA October 2020- staging CT Jan 27 no evidence of metastatic dz; awaiting PET scan to complete staging; followed by Sameera Dsouza + [facility] Quality Stroke Does the patient have a stroke diagnosis?: No VTE Prior VTE?: No VTE Risk Level:: Medical - moderate - high VTE Device Contraindication: Treatment Not Indicated VTE Drug Contraindication: N/A - Med Ordered
[2021-05-18 11:58] LABS: Glucose, Whole Blood 205 mg/dL (60-115)
[2021-05-18 18:21] LABS: Glucose, Whole Blood 306 mg/dL (60-115)
[2021-05-18] MEDS: Atorvastatin Calcium 80 MG TABLET PO (20:43)
[2021-05-18] MEDS: amLODIPine Besylate 10 MG TABLET PO (20:43)
[2021-05-18 20:49] LABS: Glucose, Whole Blood 288 mg/dL (60-115)
[2021-05-18 21:34] LABS: Glucose, Whole Blood 410 mg/dL (60-115)
--- NOTE | 2021-05-18 22:47 | W.PM.IDCN ---
History of Present Illness Data of Consult Service Date: 05/18/21 Requesting physician: Xander Jacome Primary Care Provider: [place] JEAN Guadarrama Reason for consult: shortness of breath He presents with shortness of breath worse for three days He has no fever or chills He has COPD Review of Systems Review of Systems: Yes all other systems are reviewed and are negative [facility] Past Medical History Medical History Adenocarcinoma of right lung (~2020) COPD (chronic obstructive pulmonary disease) Dementia Diabetes Former smoker, stopped smoking in distant past History of CVA (cerebrovascular accident) (~07/2020) HTN (hypertension) Hyperlipidemia Pneumonia Surgical History Surgical History History of lung biopsy (~10/2020) Social History Social History Household Members: Family Household Members Other:: step-son spends the night frequently Housing: House Do you presently have visiting nurse or other home services: Yes Alcohol intake: never Patient Tobacco Use Status: Former Tobacco user Use of substances other than those prescribed or required for medical reasons: No Advance Directives: No Advance Directives Information Provided: No Advance Directives Date on File: 08/31/20 service: No Current occupational status: retired and disabled Meds Allergies Allergy/AdvReac Type Severity Reaction Status Date / Time Penicillins [PENICILLINS] Allergy Intermediate RASH Verified 04/06/21 10:59 Active Medications: Current Medications Acetaminophen (Acetaminophen 325 Mg Tablet) 650 mg PO Q6H PRN PRN Reason: Pain, Mild (Pain Scale 1-3) Last Admin: 05/18/21 08:53 Dose: 650 mg Documented by: Amlodipine Besylate (Amlodipine Besylate 10 Mg Tablet) 10 mg PO BEDTIME [facility]; Protocol Last Admin: 05/18/21 20:43 Dose: 10 mg Documented by: Aspirin (Aspirin Enteric Coated 81 Mg Tablet.) 81 mg PO 0800 [facility] Last Admin: 05/18/21 08:53 Dose: 81 mg Documented by: Atorvastatin Calcium (Atorvastatin Calcium 80 Mg Tablet) 80 mg PO BEDTIME [facility] Last Admin: 05/18/21 20:43 Dose: 80 mg Documented by: Dexamethasone Sodium Phosphate (Dexamethasone Sod Phosphate 4 Mg/Ml Vial) 6 mg IVPUSH DAILY [facility] Last Admin: 05/18/21 08:55 Dose: 6 mg Documented by: Dextrose (Dextrose 50 % 25 Gm/50 Ml Vial) 25 gm IVPUSH Q15M PRN; Protocol PRN Reason: per Hypoglycemia Standing Ord. Enoxaparin Sodium (Enoxaparin Sodium 40 Mg/0.4 Ml Syringe) 40 mg SUBCUT Q24H [facility] Last Admin: 05/18/21 04:16 Dose: Not Given Documented by: Furosemide (Furosemide 40 Mg Tablet) 40 mg PO 0800 [facility]; Protocol Last Admin: 05/18/21 08:54 Dose: 40 mg Documented by: Glucose (Glucose Gel 15 Gm Gel..Gram.) 15 gm PO Q15M PRN; Protocol PRN Reason: per Hypoglycemia Standing Ord. Hydralazine HCl (Hydralazine Hcl 50 Mg Tablet) 50 mg PO BID [facility]; Protocol Last Admin: 05/18/21 20:42 Dose: 50 mg Documented by: Insulin Glargine (Insulin Glargine,Hum.Rec.Anlog 100 Unit/Ml 10 Ml Vial) 20 unit SUBCUT BID [facility] Last Admin: 05/18/21 20:42 Dose: 20 unit Documented by: Insulin Human Lispro (Insulin Lispro 100 Unit/Ml 3 Ml Vial) 0 unit SUBCUT QIDACHS [facility]; Protocol Last Admin: 05/18/21 20:59 Dose: 6 unit Documented by: Melatonin (Melatonin 3 Mg Tablet) 6 mg PO BEDTIME PRN PRN Reason: Insomnia Metoprolol Succinate (Metoprolol Succinate Er 50 Mg Tab.Er.24h) 50 mg PO 0800 [facility]; Protocol Last Admin: 05/18/21 08:53 Dose: 50 mg Documented by: Morphine Sulfate (Morphine Sulfate 4 Mg/Ml Cartridge) 1 mg IVPUSH Q4H PRN; Protocol PRN Reason: Pain, SOB Omeprazole (Omeprazole 20 Mg Capsule.Dr) 20 mg PO 0800 [facility] Last Admin: 05/18/21 08:54 Dose: 20 mg Documented by: Senna (Sennosides 8.6 Mg Tablet) 17.2 mg PO BEDTIME PRN PRN Reason: Constipation Sodium Chloride (0.9 % Sodium Chloride Flush 3 Ml Syringe) 3 ml IVFLUSH QSHIFT [facility] Last Admin: 05/18/21 19:33 Dose: Not Given Documented by: Vitamin D (Cholecalciferol (Vitamin D3) 25 Mcg Tablet) 25 mcg PO 0800 [facility] Last Admin: 05/18/21 08:54 Dose: 25 mcg Documented by: Home Medications Medication Instructions Recorded Confirmed Last Taken Type amlodipine 10 mg tablet 10 mg PO BEDTIME 03/07/21 05/17/21 05/16/21 History aspirin 81 mg tablet,delayed 81 mg PO QAM 03/07/21 05/17/21 05/16/21 History release atorvastatin 80 mg tablet 80 mg PO BEDTIME 03/07/21 05/17/21 05/16/21 History cholecalciferol (vitamin D3) 25 25 mcg PO QAM 03/07/21 05/17/21 05/16/21 History mcg (1,000 unit) tablet furosemide 40 mg tablet 40 mg PO QAM 03/07/21 05/17/21 05/16/21 History glimepiride 4 mg tablet 4 mg PO QAM 03/07/21 05/17/21 05/16/21 History hydralazine 50 mg tablet 50 mg PO BID 03/07/21 05/17/21 05/16/21 History insulin aspar prot-insulin aspart 37 unit SUBCUT 1630 03/07/21 05/17/21 05/16/21 History 100 unit/mL (70-30) subcutaneous pen (Novolog Mix 70-30FlexPen U-100) insulin aspar prot-insulin aspart 48 unit SUBCUT QA 03/07/21 05/17/21 05/16/21 History 100 unit/mL (70-30) subcutaneous pen (Novolog Mix 70-30FlexPen U-100) losartan 50 mg tablet 50 mg PO QAM 03/07/21 05/17/21 05/16/21 History metoprolol succinate 50 mg 50 mg PO QAM 03/07/21 05/17/21 05/16/21 History tablet,extended release 24 hr omeprazole 20 mg capsule,delayed 20 mg PO QAM 03/07/21 05/17/21 05/16/21 History release Physical Exam Vital Signs: Vital Signs: Last Vital Signs Temp 99.0 F 05/18/21 20:35 Pulse 73 05/18/21 20:35 Resp 18 05/18/21 20:35 BP 152/52 H 05/18/21 20:35 Pulse Ox 94 05/18/21 20:35 Oxygen Flow Rate 5 05/17/21 00:35 BMI result Body Mass Index 30.2 Const: General: cooperative Resp: Effort & Inspection: normal respiratory effort Cardio: Rate: regular rate Rhythm: regular rhythm GI: Palpation (GI): Soft to palpation and nontender Results Labs CBC & Chem 7: 05/18/21 06:37 05/18/21 06:37 Labs: Short CBC 05/18/21 Range/Units 06:37 WBC 10.2 (4.8-10.8) X10*3/uL Hgb 9.7 L (14.0-18.0) g/dl Hct 30.3 L (42.0-52.0) % Plt Count 247 (160-400) X10*3/uL BMP 05/18/21 06:37 Sodium 138 Potassium 3.8 Chloride 102 Carbon Dioxide 27 BUN 29 H Creatinine 1.60 H Calcium 8.8 Microbiology Microbiology Results: Microbiology 05/17/21 00:51 Blood - Venous Blood Culture - Preliminary No growth after 24 hours. 05/17/21 00:51 Blood - Venous Blood Culture - Preliminary No growth after 24 hours. Assessment and Plan (1) Pneumonia due to COVID-19 virus: Status: Acute He has no hypoxia He has weakness (2) Hypoxia: Status: Acute Can observe and only give oxygen as needed for COPD Hold Remdesivir unless has respiratory insufficiency and needs oxygen within seven days
[2021-05-19] VITALS (9 sets, daily range): BP systolic 135–169; BP diastolic 60–74; PULSE 61–82; RESP 18–20; TEMP 36.2–37.4; O2SAT 91–96; BMI 29.9
[2021-05-19 01:21] LABS: Glucose, Whole Blood 250 mg/dL (60-115)
[2021-05-19] MEDS: Enoxaparin Sodium 40 MG/0.4 ML SYRINGE SUBCUT (01:34)
[2021-05-19] MEDS: 0.9 % Sodium Chloride Flush 3 ML SYRINGE IVFLUSH ×4 (01:34→19:56)
[2021-05-19 07:01] LABS: D Dimer High Sensitivity 362 NG/ML
[2021-05-19 07:08] LABS: Anion Gap 13 (12-20); Blood Urea Nitrogen 33 mg/dL (9-16); C Reactive Protein 6.13 mg/dL (< or = 0.50); Calcium 8.9 mg/dL (8.4-10.2); Carbon Dioxide 29 mmol/L (22-29); Chloride 103 mmol/L (96-108); Estimated Glomerular Filt Rate 53; Glucose Fasting 160 mg/dL (60-99); Lactate Dehydrogenase 246 U/L (118-273); Sodium 141 mmol/L (135-145)
[2021-05-19 07:43] LABS: Glucose, Whole Blood 133 mg/dL (60-115)
[2021-05-19] MEDS: Furosemide 40 MG TABLET PO (07:53)
[2021-05-19] MEDS: hydrALAZINE HCl 50 MG TABLET PO ×2 (07:53→19:55)
[2021-05-19] MEDS: Metoprolol Succinate ER 50 MG TAB.ER.24H PO (07:53)
[2021-05-19] MEDS: Cholecalciferol (Vitamin D3) 25 MCG TABLET PO (07:53)
[2021-05-19] MEDS: Omeprazole 20 MG CAPSULE.DR PO (07:53)
[2021-05-19] MEDS: Aspirin Enteric Coated 81 MG TABLET.DR PO (07:53)
[2021-05-19] MEDS: Insulin Glargine,Hum.rec.anlog 100 UNIT/ML 10 ML VIAL 20 UNIT SUBCUT ×2 (07:54→19:56)
[2021-05-19] MEDS: dexAMETHasone sod phosphate 4 MG/ML VIAL 6 MG IVPUSH (07:54)
--- NOTE | 2021-05-19 10:17 | P.PNIM_ITS ---
Subjective Subjective Date of Service: 05/19/21 Interval History: ?cc: weakness interval history: weakness about the same Cardiovascular Cardiovascular: Reports no additional cardiovascular complaints Respiratory Respiratory: Reports no additional respiratory complaints Physical Exam Vital Signs: Vital Signs: Last Vital Signs Temp 99.3 F 05/19/21 07:33 Pulse 73 05/19/21 07:53 Resp 20 05/19/21 07:33 BP 169/74 H 05/19/21 07:53 Pulse Ox 96 05/19/21 07:33 Oxygen Flow Rate 5 05/17/21 00:35 BMI result Body Mass Index 29.9 General: AO X 3, no acute distress Resp:? diminihsed bilateral, no accessory muscles used CVS: S1,S2,RRR GI: soft, non tender, non distended Neuro:? motor grossly intact, alert Psych: appropriate affect, appropriate insight? Objective Data Active Medications Acetaminophen (Acetaminophen 325 Mg Tablet) 650 mg PO Q6H PRN PRN Reason: Pain, Mild (Pain Scale 1-3) Last Admin: 05/18/21 08:53 Dose: 650 mg Documented by: DENI Amlodipine Besylate (Amlodipine Besylate 10 Mg Tablet) 10 mg PO BEDTIME [facility]; Protocol Last Admin: 05/18/21 20:43 Dose: 10 mg Documented by: MILTON Aspirin (Aspirin Enteric Coated 81 Mg Tablet.) 81 mg PO 0800 [facility] Last Admin: 05/19/21 07:53 Dose: 81 mg Documented by: MELVA Atorvastatin Calcium (Atorvastatin Calcium 80 Mg Tablet) 80 mg PO BEDTIME [facility] Last Admin: 05/18/21 20:43 Dose: 80 mg Documented by: MILTON Dexamethasone Sodium Phosphate (Dexamethasone Sod Phosphate 4 Mg/Ml Vial) 6 mg IVPUSH DAILY [facility] Last Admin: 05/19/21 07:54 Dose: 6 mg Documented by: MELVA Dextrose (Dextrose 50 % 25 Gm/50 Ml Vial) 25 gm IVPUSH Q15M PRN; Protocol PRN Reason: per Hypoglycemia Standing Ord. Enoxaparin Sodium (Enoxaparin Sodium 40 Mg/0.4 Ml Syringe) 40 mg SUBCUT Q24H [facility] Last Admin: 05/19/21 01:34 Dose: 40 mg Documented by: KAT Furosemide (Furosemide 40 Mg Tablet) 40 mg PO 0800 [facility]; Protocol Last Admin: 05/19/21 07:53 Dose: 40 mg Documented by: MELVA Glucose (Glucose Gel 15 Gm Gel..Gram.) 15 gm PO Q15M PRN; Protocol PRN Reason: per Hypoglycemia Standing Ord. Hydralazine HCl (Hydralazine Hcl 50 Mg Tablet) 50 mg PO BID [facility]; Protocol Last Admin: 05/19/21 07:53 Dose: 50 mg Documented by: MELVA Insulin Glargine (Insulin Glargine,Hum.Rec.Anlog 100 Unit/Ml 10 Ml Vial) 20 unit SUBCUT BID [facility] Last Admin: 05/19/21 07:54 Dose: 20 unit Documented by: MELVA Insulin Human Lispro (Insulin Lispro 100 Unit/Ml 3 Ml Vial) 0 unit SUBCUT QIDACHS [facility]; Protocol Last Admin: 05/19/21 07:40 Dose: Not Given Documented by: MELVA Non-Admin Reason: No Insulin Coverage Melatonin (Melatonin 3 Mg Tablet) 6 mg PO BEDTIME PRN PRN Reason: Insomnia Metoprolol Succinate (Metoprolol Succinate Er 50 Mg Tab.Er.24h) 50 mg PO 0800 [facility]; Protocol Last Admin: 05/19/21 07:53 Dose: 50 mg Documented by: MELVA Morphine Sulfate (Morphine Sulfate 4 Mg/Ml Cartridge) 1 mg IVPUSH Q4H PRN; Protocol PRN Reason: Pain, SOB Omeprazole (Omeprazole 20 Mg Capsule.Dr) 20 mg PO 0800 [facility] Last Admin: 05/19/21 07:53 Dose: 20 mg Documented by: MELVA Senna (Sennosides 8.6 Mg Tablet) 17.2 mg PO BEDTIME PRN PRN Reason: Constipation Sodium Chloride (0.9 % Sodium Chloride Flush 3 Ml Syringe) 3 ml IVFLUSH QSHIFT [facility] Last Admin: 05/19/21 07:54 Dose: 3 ml Documented by: MELVA Vitamin D (Cholecalciferol (Vitamin D3) 25 Mcg Tablet) 25 mcg PO 0800 [facility] Last Admin: 05/19/21 07:53 Dose: 25 mcg Documented by: EMLVA Labs CBC & Chem 7: 05/18/21 06:37 05/19/21 06:05 Labs: Laboratory Results - last 24 hr 05/18/21 05/18/21 05/18/21 11:53 18:11 20:40 D-Dimer High Sensitivty Anion Gap Estim Creat Clear Calc Estimated GFR POC Glucose 205 H 306 H 288 H Fasting Glucose Calcium Lactate Dehydrogenase C-Reactive Protein 05/18/21 05/19/21 05/19/21 21:29 01:16 06:05 D-Dimer High Sensitivty 362 Anion Gap Estim Creat Clear Calc Estimated GFR POC Glucose 410 H* 250 H Fasting Glucose Calcium Lactate Dehydrogenase C-Reactive Protein 05/19/21 05/19/21 06:05 07:36 D-Dimer High Sensitivty Anion Gap 13 Estim Creat Clear Calc 48.0 Estimated GFR 53 POC Glucose 133 H Fasting Glucose 160 H D Calcium 8.9 Lactate Dehydrogenase 246 C-Reactive Protein 6.13 H Microbiology Microbiology Results: Microbiology 05/17/21 00:51 Blood Culture - Preliminary Blood - Venous No growth after 48 hours. 05/17/21 00:51 Blood Culture - Preliminary Blood - Venous No growth after 48 hours. Assessment and Plan (1) Pneumonia due to COVID-19 virus: Status: Acute Assessment and Plan: 80M presented with weakness, found to have covid acute hypoxic respiratory failure and viral sepsis due to covid pneumonia continue decadron day 3 no evidence of bacterial superinfection - levaquin dced CKD III at baseline monitor chronic HFpEF continue lasix 40mg po HTN continue amlodipine, metoprolol, hydralazine hx CVA continue statin + ASA DM2 basal/bolus insulin monitor poc lung CA diagnosed on FNA October 2020- staging CT Jan 27 no evidence of metastatic dz; awaiting PET scan to complete staging; followed by Sameera Dsouza + Lulú Quality Stroke Does the patient have a stroke diagnosis?: No VTE Prior VTE?: No VTE Risk Level:: Medical - moderate - high VTE Device Contraindication: Treatment Not Indicated VTE Drug Contraindication: N/A - Med Ordered
[2021-05-19 11:10] LABS: Glucose, Whole Blood 288 mg/dL (60-115)
[2021-05-19] MEDS: Insulin Lispro 100 UNIT/ML 3 ML VIAL SUBCUT ×3 (11:44→19:56)
[2021-05-19 16:23] LABS: Glucose, Whole Blood 296 mg/dL (60-115)
[2021-05-19] MEDS: amLODIPine Besylate 10 MG TABLET PO (19:55)
[2021-05-19] MEDS: Atorvastatin Calcium 80 MG TABLET PO (19:55)
[2021-05-19 19:56] LABS: Glucose, Whole Blood 384 mg/dL (60-115)
[2021-05-20] VITALS (8 sets, daily range): BP systolic 147–183; BP diastolic 62–74; PULSE 68–73; RESP 16–20; TEMP 36.2–36.8; O2SAT 90–96
[2021-05-20 08:05] LABS: Glucose, Whole Blood 291 mg/dL (60-115)
[2021-05-20] MEDS: dexAMETHasone sod phosphate 4 MG/ML VIAL 6 MG IVPUSH (08:17)
[2021-05-20] MEDS: Insulin Glargine,Hum.rec.anlog 100 UNIT/ML 10 ML VIAL 20 UNIT SUBCUT ×2 (08:17→22:09)
[2021-05-20] MEDS: hydrALAZINE HCl 50 MG TABLET PO ×2 (08:18→22:02)
[2021-05-20] MEDS: Omeprazole 20 MG CAPSULE.DR PO (08:18)
[2021-05-20] MEDS: Aspirin Enteric Coated 81 MG TABLET.DR PO (08:18)
[2021-05-20] MEDS: Insulin Lispro 100 UNIT/ML 3 ML VIAL SUBCUT ×5 (08:18→22:06)
[2021-05-20] MEDS: Furosemide 40 MG TABLET PO (08:18)
[2021-05-20] MEDS: Metoprolol Succinate ER 50 MG TAB.ER.24H PO (08:18)
[2021-05-20] MEDS: Cholecalciferol (Vitamin D3) 25 MCG TABLET PO (08:18)
[2021-05-20] MEDS: 0.9 % Sodium Chloride Flush 3 ML SYRINGE IVFLUSH ×3 (08:19→22:03)
--- NOTE | 2021-05-20 10:11 | P.PNIM_ITS ---
Subjective Subjective Date of Service: 05/20/21 Interval History: cc: weakness interval history: weakness about the same Cardiovascular Cardiovascular: Reports no additional cardiovascular complaints Respiratory Respiratory: Reports no additional respiratory complaints Physical Exam Vital Signs: Vital Signs: Last Vital Signs Temp 98.3 F 05/20/21 07:52 Pulse 70 05/20/21 08:18 Resp 20 05/20/21 07:52 BP 183/72 H 05/20/21 08:18 Pulse Ox 93 05/20/21 07:52 Oxygen Flow Rate 5 05/17/21 00:35 BMI result Body Mass Index 29.9 General: AO X 3, no acute distress Resp:? diminihsed bilateral, no accessory muscles used CVS: S1,S2,RRR GI: soft, non tender, non distended Neuro:? motor grossly intact, alert Psych: appropriate affect, appropriate insight? Objective Data Active Medications Acetaminophen (Acetaminophen 325 Mg Tablet) 650 mg PO Q6H PRN PRN Reason: Pain, Mild (Pain Scale 1-3) Last Admin: 05/18/21 08:53 Dose: 650 mg Documented by: DENI Amlodipine Besylate (Amlodipine Besylate 10 Mg Tablet) 10 mg PO BEDTIME [facility]; Protocol Last Admin: 05/19/21 19:55 Dose: 10 mg Documented by: KAT Aspirin (Aspirin Enteric Coated 81 Mg Tablet.) 81 mg PO 0800 [facility] Last Admin: 05/20/21 08:18 Dose: 81 mg Documented by: MELVA Atorvastatin Calcium (Atorvastatin Calcium 80 Mg Tablet) 80 mg PO BEDTIME [facility] Last Admin: 05/19/21 19:55 Dose: 80 mg Documented by: KAT Dexamethasone Sodium Phosphate (Dexamethasone Sod Phosphate 4 Mg/Ml Vial) 6 mg IVPUSH DAILY [facility] Last Admin: 05/20/21 08:17 Dose: 6 mg Documented by: MELVA Dextrose (Dextrose 50 % 25 Gm/50 Ml Vial) 25 gm IVPUSH Q15M PRN; Protocol PRN Reason: per Hypoglycemia Standing Ord. Enoxaparin Sodium (Enoxaparin Sodium 40 Mg/0.4 Ml Syringe) 40 mg SUBCUT Q24H [facility] Last Admin: 05/20/21 03:00 Dose: Not Given Documented by: KAT Non-Admin Reason: Patient Refused Furosemide (Furosemide 40 Mg Tablet) 40 mg PO 0800 [facility]; Protocol Last Admin: 05/20/21 08:18 Dose: 40 mg Documented by: MELVA Glucose (Glucose Gel 15 Gm Gel..Gram.) 15 gm PO Q15M PRN; Protocol PRN Reason: per Hypoglycemia Standing Ord. Hydralazine HCl (Hydralazine Hcl 50 Mg Tablet) 50 mg PO BID [facility]; Protocol Last Admin: 05/20/21 08:18 Dose: 50 mg Documented by: MELVA Insulin Glargine (Insulin Glargine,Hum.Rec.Anlog 100 Unit/Ml 10 Ml Vial) 20 unit SUBCUT BID [facility] Last Admin: 05/20/21 08:17 Dose: 20 unit Documented by: MELVA Comments: Insulin Human Lispro (Insulin Lispro 100 Unit/Ml 3 Ml Vial) 0 unit SUBCUT QIDACHS [facility]; Protocol Last Admin: 05/20/21 08:18 Dose: 6 unit Documented by: MELVA Melatonin (Melatonin 3 Mg Tablet) 6 mg PO BEDTIME PRN PRN Reason: Insomnia Metoprolol Succinate (Metoprolol Succinate Er 50 Mg Tab.Er.24h) 50 mg PO 0800 [facility]; Protocol Last Admin: 05/20/21 08:18 Dose: 50 mg Documented by: MELVA Morphine Sulfate (Morphine Sulfate 4 Mg/Ml Cartridge) 1 mg IVPUSH Q4H PRN; Protocol PRN Reason: Pain, SOB Omeprazole (Omeprazole 20 Mg Capsule.Dr) 20 mg PO 0800 [facility] Last Admin: 05/20/21 08:18 Dose: 20 mg Documented by: MELVA Senna (Sennosides 8.6 Mg Tablet) 17.2 mg PO BEDTIME PRN PRN Reason: Constipation Sodium Chloride (0.9 % Sodium Chloride Flush 3 Ml Syringe) 3 ml IVFLUSH QSHIFT [facility] Last Admin: 05/20/21 08:19 Dose: 3 ml Documented by: MELVA Vitamin D (Cholecalciferol (Vitamin D3) 25 Mcg Tablet) 25 mcg PO 0800 [facility] Last Admin: 05/20/21 08:18 Dose: 25 mcg Documented by: MELVA Labs CBC & Chem 7: 05/18/21 06:37 05/19/21 06:05 Labs: Laboratory Results - last 24 hr 12/11/21 12/11/21 12/11/21 10:59 16:20 19:45 POC Glucose 288 H 296 H 384 H* 05/20/21 08:01 POC Glucose 291 H Assessment and Plan (1) Pneumonia due to COVID-19 virus: Status: Acute Assessment and Plan: 80M presented with weakness, found to have covid acute hypoxic respiratory failure and viral sepsis due to covid pneumonia continue decadron day 4 no evidence of bacterial superinfection - levaquin dced CKD III at baseline monitor chronic HFpEF continue lasix 40mg po HTN continue amlodipine, metoprolol, hydralazine hx CVA continue statin + ASA DM2 basal/bolus insulin monitor poc lung CA diagnosed on FNA October 2020- staging CT Jan 27 no evidence of metastatic dz; awaiting PET scan to complete staging; followed by Sameera Dsouza + Lulú Quality Stroke Does the patient have a stroke diagnosis?: No VTE Prior VTE?: No VTE Risk Level:: Medical - moderate - high VTE Device Contraindication: Treatment Not Indicated VTE Drug Contraindication: N/A - Med Ordered
[2021-05-20 11:39] LABS: Glucose, Whole Blood 334 mg/dL (60-115)
[2021-05-20 16:35] LABS: Glucose, Whole Blood 286 mg/dL (60-115)
[2021-05-20 21:06] LABS: Glucose, Whole Blood 385 mg/dL (60-115)
[2021-05-20] MEDS: amLODIPine Besylate 10 MG TABLET PO (22:02)
[2021-05-20] MEDS: Atorvastatin Calcium 80 MG TABLET PO (22:03)
[2021-05-21] VITALS (8 sets, daily range): BP systolic 135–170; BP diastolic 64–76; PULSE 64–70; RESP 16–19; TEMP 36.2–36.7; O2SAT 90–95
[2021-05-21 06:13] LABS: Hematocrit 34.7 % (42.0-52.0); Hemoglobin 11.1 g/dl (14.0-18.0); Mean Corpuscular Volume 87.4 fL (80.0-98.0); Mean Platelet Volume 11.5 fL (9.4-12.4); Platelet Count 320 X10*3/uL (160-400); Red Blood Count 3.97 X10*6/uL (4.60-5.80); Red Cell Distribution Width 14.1 % (11.0-16.0); White Blood Count 12.8 X10*3/uL (4.8-10.8)
[2021-05-21 06:20] LABS: D Dimer High Sensitivity 700 NG/ML
[2021-05-21 06:39] LABS: Anion Gap 14 (12-20); Blood Urea Nitrogen 52 mg/dL (9-16); C Reactive Protein 5.91 mg/dL (< or = 0.50); Calcium 9.3 mg/dL (8.4-10.2); Carbon Dioxide 29 mmol/L (22-29); Chloride 101 mmol/L (96-108); Creatinine Clr Calc Pharmacy 43.6; Estimated Glomerular Filt Rate 47; Glucose Fasting 201 mg/dL (60-99); Lactate Dehydrogenase 298 U/L (118-273); Potassium 4.1 mmol/L (3.3-5.1); Sodium 140 mmol/L (135-145)
[2021-05-21 07:32] LABS: Glucose, Whole Blood 186 mg/dL (60-115)
[2021-05-21] MEDS: Insulin Lispro 100 UNIT/ML 3 ML VIAL SUBCUT ×4 (07:58→21:44)
[2021-05-21] MEDS: dexAMETHasone sod phosphate 4 MG/ML VIAL 6 MG IVPUSH (07:59)
[2021-05-21] MEDS: hydrALAZINE HCl 50 MG TABLET PO ×2 (08:00→21:45)
[2021-05-21] MEDS: Omeprazole 20 MG CAPSULE.DR PO (08:00)
[2021-05-21] MEDS: Metoprolol Succinate ER 50 MG TAB.ER.24H PO (08:00)
[2021-05-21] MEDS: Aspirin Enteric Coated 81 MG TABLET.DR PO (08:00)
[2021-05-21] MEDS: Furosemide 40 MG TABLET PO (08:00)
[2021-05-21] MEDS: 0.9 % Sodium Chloride Flush 3 ML SYRINGE IVFLUSH ×3 (08:01→21:50)
[2021-05-21] MEDS: Cholecalciferol (Vitamin D3) 25 MCG TABLET PO (08:01)
[2021-05-21 08:17] LABS: HIV AB/AG Nonreactive (Nonreactive); HIV Num 1 0.12 S/CO (0.00-0.99); ~HepC Num1 0.09 S/CO (0.00-0.79); ~Hepatitis B Surface Antibody NONREACTIVE (Nonreactive); ~Hepatitis C Antibody Nonreactive (Nonreactive)
[2021-05-21 08:35] LABS: HBc Num1 0.11 S/CO (0.00-0.79); Hepatitis B Core Antibody Nonreactive (Nonreactive); Hepatitis B Surface Antigen Negative (Negative)
[2021-05-21] MEDS: Insulin Glargine,Hum.rec.anlog 100 UNIT/ML 10 ML VIAL 20 UNIT SUBCUT ×2 (10:21→21:44)
--- NOTE | 2021-05-21 11:13 | P.PNIM_ITS ---
Subjective Subjective Date of Service: 05/21/21 Interval History: ?cc: weakness interval history: weakness about the same, sob resolved, asking for discharge but unable to ambulate Cardiovascular Cardiovascular: Reports no additional cardiovascular complaints Gastrointestinal Gastrointestinal: Reports no additional gastrointestinal complaints Physical Exam Vital Signs: Vital Signs: Last Vital Signs Temp 98.0 F 05/21/21 11:00 Pulse 70 05/21/21 11:00 Resp 18 05/21/21 11:00 BP 170/76 H 05/21/21 11:00 Pulse Ox 90 L 05/21/21 11:00 Oxygen Flow Rate 5 05/17/21 00:35 BMI result Body Mass Index 29.9 General: AO X 3, no acute distress Resp:? diminihsed bilateral, no accessory muscles used CVS: S1,S2,RRR GI: soft, non tender, non distended Neuro:? motor grossly weak, alert Psych: appropriate affect, appropriate insight? Objective Data Active Medications Acetaminophen (Acetaminophen 325 Mg Tablet) 650 mg PO Q6H PRN PRN Reason: Pain, Mild (Pain Scale 1-3) Last Admin: 05/18/21 08:53 Dose: 650 mg Documented by: DENI Amlodipine Besylate (Amlodipine Besylate 10 Mg Tablet) 10 mg PO BEDTIME [facility]; Protocol Last Admin: 05/20/21 22:02 Dose: 10 mg Documented by: PHILL Aspirin (Aspirin Enteric Coated 81 Mg Tablet.) 81 mg PO 0800 [facility] Last Admin: 05/21/21 08:00 Dose: 81 mg Documented by: ONEIDA Atorvastatin Calcium (Atorvastatin Calcium 80 Mg Tablet) 80 mg PO BEDTIME [facility] Last Admin: 05/20/21 22:03 Dose: 80 mg Documented by: PHILL Dexamethasone Sodium Phosphate (Dexamethasone Sod Phosphate 4 Mg/Ml Vial) 6 mg IVPUSH DAILY [facility] Last Admin: 05/21/21 07:59 Dose: 6 mg Documented by: ONEIDA Dextrose (Dextrose 50 % 25 Gm/50 Ml Vial) 25 gm IVPUSH Q15M PRN; Protocol PRN Reason: per Hypoglycemia Standing Ord. Enoxaparin Sodium (Enoxaparin Sodium 40 Mg/0.4 Ml Syringe) 40 mg SUBCUT Q24H [facility] Last Admin: 05/21/21 02:46 Dose: Not Given Documented by: PHILL Non-Admin Reason: Patient Refused Furosemide (Furosemide 40 Mg Tablet) 40 mg PO 0800 [facility]; Protocol Last Admin: 05/21/21 08:00 Dose: 40 mg Documented by: ONEIDA Glucose (Glucose Gel 15 Gm Gel..Gram.) 15 gm PO Q15M PRN; Protocol PRN Reason: per Hypoglycemia Standing Ord. Hydralazine HCl (Hydralazine Hcl 50 Mg Tablet) 50 mg PO BID [facility]; Protocol Last Admin: 05/21/21 08:00 Dose: 50 mg Documented by: ONEIDA Insulin Glargine (Insulin Glargine,Hum.Rec.Anlog 100 Unit/Ml 10 Ml Vial) 20 unit SUBCUT BID [facility] Last Admin: 05/21/21 10:21 Dose: 20 unit Documented by: ONEIDA Insulin Human Lispro (Insulin Lispro 100 Unit/Ml 3 Ml Vial) 0 unit SUBCUT QIDACHS [facility]; Protocol Last Admin: 05/21/21 07:58 Dose: 2 unit Documented by: ONEIDA Melatonin (Melatonin 3 Mg Tablet) 6 mg PO BEDTIME PRN PRN Reason: Insomnia Metoprolol Succinate (Metoprolol Succinate Er 50 Mg Tab.Er.24h) 50 mg PO 0800 [facility]; Protocol Last Admin: 05/21/21 08:00 Dose: 50 mg Documented by: ONEIDA Morphine Sulfate (Morphine Sulfate 4 Mg/Ml Cartridge) 1 mg IVPUSH Q4H PRN; Protocol PRN Reason: Pain, SOB Omeprazole (Omeprazole 20 Mg Capsule.Dr) 20 mg PO 0800 [facility] Last Admin: 05/21/21 08:00 Dose: 20 mg Documented by: ONEIDA Senna (Sennosides 8.6 Mg Tablet) 17.2 mg PO BEDTIME PRN PRN Reason: Constipation Sodium Chloride (0.9 % Sodium Chloride Flush 3 Ml Syringe) 3 ml IVFLUSH QSHIFT [facility] Last Admin: 05/21/21 08:01 Dose: 3 ml Documented by: ONEIDA Vitamin D (Cholecalciferol (Vitamin D3) 25 Mcg Tablet) 25 mcg PO 0800 [facility] Last Admin: 05/21/21 08:01 Dose: 25 mcg Documented by: ONEIDA Labs CBC & Chem 7: 05/21/21 05:50 05/21/21 05:50 Labs: Laboratory Results - last 24 hr 05/20/21 05/20/21 05/20/21 11:35 16:29 20:57 MCV MCH MCHC RDW Plt Count MPV Absolute Nucleated RBC Nucleated RBC % (auto) D-Dimer High Sensitivty Anion Gap Estim Creat Clear Calc Estimated GFR POC Glucose 334 H 286 H 385 H* Fasting Glucose Calcium Lactate Dehydrogenase C-Reactive Protein Hep Bs Antigen Hep Bs Antibody Hep B Core Total Ab Hepatitis C Ab (EIA) HIV 1&2 Ab/P24 Ag 4thGn 05/20/21 05/21/21 05/21/21 23:34 05:50 05:50 MCV 87.4 MCH 28.0 MCHC 32.0 RDW 14.1 Plt Count 320 D MPV 11.5 Absolute Nucleated RBC 0.000 Nucleated RBC % (auto) 0.0 D-Dimer High Sensitivty 700 Anion Gap Estim Creat Clear Calc Estimated GFR POC Glucose Fasting Glucose Calcium Lactate Dehydrogenase C-Reactive Protein Hep Bs Antigen Negative Hep Bs Antibody NONREACTIVE Hep B Core Total Ab Nonreactive Hepatitis C Ab (EIA) Nonreactive HIV 1&2 Ab/P24 Ag 4thGn Nonreactive 05/21/21 05/21/21 05:50 07:21 MCV MCH MCHC RDW Plt Count MPV Absolute Nucleated RBC Nucleated RBC % (auto) D-Dimer High Sensitivty Anion Gap 14 Estim Creat Clear Calc 43.6 Estimated GFR 47 POC Glucose 186 H Fasting Glucose 201 H Calcium 9.3 Lactate Dehydrogenase 298 H C-Reactive Protein 5.91 H Hep Bs Antigen Hep Bs Antibody Hep B Core Total Ab Hepatitis C Ab (EIA) HIV 1&2 Ab/P24 Ag 4thGn Assessment and Plan (1) Pneumonia due to COVID-19 virus: Status: Acute Assessment and Plan: 80M presented with weakness, found to have covid acute hypoxic respiratory failure and viral sepsis due to covid pneumonia continue decadron day 5 no evidence of bacterial superinfection - levaquin dced CKD III at baseline monitor chronic HFpEF continue lasix 40mg po HTN continue amlodipine, metoprolol, hydralazine hx CVA continue statin + ASA DM2 basal/bolus insulin monitor poc lung CA diagnosed on October 2020- staging CT Jan 27 no evidence of metastatic dz; awaiting PET scan to complete staging; followed by Sameera Dsouza + Lulú debility - PT eval Quality Stroke Does the patient have a stroke diagnosis?: No VTE Prior VTE?: No VTE Risk Level:: Medical - moderate - high VTE Device Contraindication: Treatment Not Indicated VTE Drug Contraindication: N/A - Med Ordered
[2021-05-21 11:20] LABS: Glucose, Whole Blood 331 mg/dL (60-115)
--- NOTE | 2021-05-21 11:26 | MHC.CM.PN ---
Per ROUNDS discussion, Patient is not yet medically cleared for dc (IV Decadron, 2L O2). Home/resume services vs STR is the goal, pending PT eval. CM will follow.
--- NOTE | 2021-05-21 11:58 | MHC.CM.PN ---
PT is recommending STR; referrals have been made. [facility] and [facility] are first choice and [facility]/HCP/[facility] at [phone] is also agreeable to additional SNF referrals. CM will follow.
[2021-05-21 16:22] LABS: Glucose, Whole Blood 305 mg/dL (60-115)
[2021-05-21 20:19] LABS: Glucose, Whole Blood 345 mg/dL (60-115)
[2021-05-21] MEDS: amLODIPine Besylate 10 MG TABLET PO (21:45)
[2021-05-21] MEDS: Atorvastatin Calcium 80 MG TABLET PO (21:45)
[2021-05-22] VITALS (9 sets, daily range): BP systolic 134–187; BP diastolic 61–85; PULSE 56–89; RESP 17–20; TEMP 36.1–37.1; O2SAT 90–97
[2021-05-22 07:23] LABS: Glucose, Whole Blood 239 mg/dL (60-115)
[2021-05-22] MEDS: Insulin Glargine,Hum.rec.anlog 100 UNIT/ML 10 ML VIAL 20 UNIT SUBCUT ×2 (08:46→21:09)
[2021-05-22] MEDS: dexAMETHasone sod phosphate 4 MG/ML VIAL 6 MG IVPUSH (08:47)
[2021-05-22] MEDS: Insulin Lispro 100 UNIT/ML 3 ML VIAL SUBCUT ×4 (08:47→21:10)
[2021-05-22] MEDS: Cholecalciferol (Vitamin D3) 25 MCG TABLET PO (08:48)
[2021-05-22] MEDS: hydrALAZINE HCl 50 MG TABLET PO ×2 (08:48→21:10)
[2021-05-22] MEDS: Omeprazole 20 MG CAPSULE.DR PO (08:48)
[2021-05-22] MEDS: 0.9 % Sodium Chloride Flush 3 ML SYRINGE IVFLUSH ×3 (08:49→21:11)
[2021-05-22] MEDS: Aspirin Enteric Coated 81 MG TABLET.DR PO (08:49)
[2021-05-22] MEDS: Metoprolol Succinate ER 50 MG TAB.ER.24H PO (08:49)
[2021-05-22] MEDS: Furosemide 40 MG TABLET PO (08:49)
[2021-05-22 10:56] LABS: Glucose, Whole Blood 409 mg/dL (60-115)
--- NOTE | 2021-05-22 13:04 | HO.PM.IMPN ---
Subjective Subjective Date of Service: 05/22/21 Interval History: ?cc: weakness interval history: weakness about the same, sob resolved Cardiovascular Cardiovascular: Reports no additional cardiovascular complaints Gastrointestinal Gastrointestinal: Reports no additional gastrointestinal complaints Physical Exam Vital Signs: Vital Signs: Last Vital Signs Temp 97.5 F 05/22/21 10:56 Pulse 72 05/22/21 10:56 Resp 20 05/22/21 10:56 BP 187/79 H 05/22/21 10:56 Pulse Ox 93 05/22/21 10:56 Oxygen Flow Rate 5 05/17/21 00:35 BMI result Body Mass Index 29.9 General: AO X 3, no acute distress Resp:? diminihsed bilateral, no accessory muscles used CVS: S1,S2,RRR GI: soft, non tender, non distended Neuro:? motor grossly weak, alert Psych: appropriate affect, appropriate insight? Objective Data Active Medications Acetaminophen (Acetaminophen 325 Mg Tablet) 650 mg PO Q6H PRN PRN Reason: Pain, Mild (Pain Scale 1-3) Last Admin: 05/18/21 08:53 Dose: 650 mg Documented by: DENI Amlodipine Besylate (Amlodipine Besylate 10 Mg Tablet) 10 mg PO BEDTIME [facility]; Protocol Last Admin: 05/21/21 21:45 Dose: 10 mg Documented by: TIAN Aspirin (Aspirin Enteric Coated 81 Mg Tablet.) 81 mg PO 0800 [facility] Last Admin: 05/22/21 08:49 Dose: 81 mg Documented by: NORMAN Atorvastatin Calcium (Atorvastatin Calcium 80 Mg Tablet) 80 mg PO BEDTIME [facility] Last Admin: 05/21/21 21:45 Dose: 80 mg Documented by: TIAN Dexamethasone Sodium Phosphate (Dexamethasone Sod Phosphate 4 Mg/Ml Vial) 6 mg IVPUSH DAILY [facility] Last Admin: 05/22/21 08:47 Dose: 6 mg Documented by: NORMAN Dextrose (Dextrose 50 % 25 Gm/50 Ml Vial) 25 gm IVPUSH Q15M PRN; Protocol PRN Reason: per Hypoglycemia Standing Ord. Enoxaparin Sodium (Enoxaparin Sodium 40 Mg/0.4 Ml Syringe) 40 mg SUBCUT Q24H [facility] Last Admin: 05/22/21 04:01 Dose: Not Given Documented by: TIAN Non-Admin Reason: Patient Refused Furosemide (Furosemide 40 Mg Tablet) 40 mg PO 0800 [facility]; Protocol Last Admin: 05/22/21 08:49 Dose: 40 mg Documented by: NORMAN Glucose (Glucose Gel 15 Gm Gel..Gram.) 15 gm PO Q15M PRN; Protocol PRN Reason: per Hypoglycemia Standing Ord. Hydralazine HCl (Hydralazine Hcl 50 Mg Tablet) 50 mg PO BID [facility]; Protocol Last Admin: 05/22/21 08:48 Dose: 50 mg Documented by: NORMAN Insulin Glargine (Insulin Glargine,Hum.Rec.Anlog 100 Unit/Ml 10 Ml Vial) 20 unit SUBCUT BID [facility] Last Admin: 05/22/21 08:46 Dose: 20 unit Documented by: NORMAN Insulin Human Lispro (Insulin Lispro 100 Unit/Ml 3 Ml Vial) 0 unit SUBCUT QIDACHS [facility]; Protocol Last Admin: 05/22/21 12:09 Dose: 20 unit Documented by: NORMAN Melatonin (Melatonin 3 Mg Tablet) 6 mg PO BEDTIME PRN PRN Reason: Insomnia Metoprolol Succinate (Metoprolol Succinate Er 50 Mg Tab.Er.24h) 50 mg PO 0800 [facility]; Protocol Last Admin: 05/22/21 08:49 Dose: 50 mg Documented by: NORMAN Omeprazole (Omeprazole 20 Mg Capsule.Dr) 20 mg PO 0800 [facility] Last Admin: 05/22/21 08:48 Dose: 20 mg Documented by: NORMAN Senna (Sennosides 8.6 Mg Tablet) 17.2 mg PO BEDTIME PRN PRN Reason: Constipation Sodium Chloride (0.9 % Sodium Chloride Flush 3 Ml Syringe) [facility] Last Admin: 05/22/21 08:49 Dose: 3 ml Documented by: NORMAN Vitamin D (Cholecalciferol (Vitamin D3) 25 Mcg Tablet) 25 mcg PO 0800 [facility] Last Admin: 05/22/21 08:48 Dose: 25 mcg Documented by: NORMAN Labs CBC & Chem 7: 05/21/21 05:50 05/21/21 05:50 Labs: Laboratory Results - last 24 hr 05/21/21 05/21/21 05/22/21 16:15 20:15 07:14 POC Glucose 305 H 345 H 239 H 05/22/21 10:51 POC Glucose 409 H* Microbiology Microbiology Results: Microbiology 05/17/21 00:51 Blood Culture - Final Blood - Venous No growth after 5 days. 05/17/21 00:51 Blood Culture - Final Blood - Venous No growth after 5 days. Assessment and Plan (1) Pneumonia due to COVID-19 virus: Status: Acute Assessment and Plan: 80M presented with weakness, found to have covid acute hypoxic respiratory failure and viral sepsis due to covid pneumonia continue decadron day 6 now on room air CKD III at baseline monitor chronic HFpEF continue lasix 40mg po HTN continue amlodipine, metoprolol, hydralazine hx CVA continue statin + ASA DM2 basal/bolus insulin monitor poc lung CA diagnosed on FNA October 2020- staging CT Jan 27 no evidence of metastatic dz; awaiting PET scan to complete staging; followed by Sameera Dsouza + Lulú debility - PT appreciated, awaiting SNF bed Quality Stroke Does the patient have a stroke diagnosis?: No VTE Prior VTE?: No VTE Risk Level:: Medical - moderate - high VTE Device Contraindication: Treatment Not Indicated VTE Drug Contraindication: N/A - Med Ordered
--- NOTE | 2021-05-22 15:05 | MHC.CM.PN ---
Male 80 DX Covid+ Spoke with step dtr. DP STR via BLS. Referrals updated. No covid bed available. [facility] is following for bed availability. If they have a bed available 10 days from 1st + covid test they will accept him. She also requested PET scan for [facility] plan of care. It was explained to her that insurance does not cover out pt procedures. MD aware.
[2021-05-22 16:14] LABS: Glucose, Whole Blood 348 mg/dL (60-115)
[2021-05-22 20:38] LABS: Glucose, Whole Blood 377 mg/dL (60-115)
[2021-05-22] MEDS: amLODIPine Besylate 10 MG TABLET PO (21:10)
[2021-05-22] MEDS: Atorvastatin Calcium 80 MG TABLET PO (21:10)
[2021-05-23] MEDS: Enoxaparin Sodium 40 MG/0.4 ML SYRINGE SUBCUT (00:02)
[2021-05-23 04:00] VITALS: BP 160/70; PULSE 60; RESP 17; TEMP 36.3; O2SAT 88
[2021-05-23 07:16] VITALS: BP 170/80; PULSE 62; RESP 18; TEMP 36.3; O2SAT 93
[2021-05-23 07:23] LABS: Glucose, Whole Blood 199 mg/dL (60-115)
[2021-05-23] MEDS: Insulin Lispro 100 UNIT/ML 3 ML VIAL SUBCUT ×3 (07:52→11:59)
[2021-05-23] MEDS: Insulin Glargine,Hum.rec.anlog 100 UNIT/ML 10 ML VIAL 20 UNIT SUBCUT (07:52)
[2021-05-23 07:53] VITALS: BP 170/80; PULSE 62
[2021-05-23] MEDS: dexAMETHasone sod phosphate 4 MG/ML VIAL 6 MG IVPUSH (07:53)
[2021-05-23] MEDS: Metoprolol Succinate ER 50 MG TAB.ER.24H PO (07:53)
[2021-05-23 07:54] VITALS: BP 170/80; PULSE 62
[2021-05-23] MEDS: hydrALAZINE HCl 50 MG TABLET PO (07:54)
[2021-05-23] MEDS: Omeprazole 20 MG CAPSULE.DR PO (07:54)
[2021-05-23] MEDS: Cholecalciferol (Vitamin D3) 25 MCG TABLET PO (07:54)
[2021-05-23] MEDS: 0.9 % Sodium Chloride Flush 3 ML SYRINGE IVFLUSH (07:54)
[2021-05-23] MEDS: Furosemide 40 MG TABLET PO (07:54)
[2021-05-23] MEDS: Aspirin Enteric Coated 81 MG TABLET.DR PO (07:54)
[2021-05-23 08:29] LABS: Hepatitis A Antibody IgM 0.36 Index (0-0.79); ~Hepatitis A Antibody IgM Nonreactive (Nonreactive)
[2021-05-23 09:20] VITALS: BP 170/80; PULSE 62
[2021-05-23 10:55] VITALS: BP 146/65; PULSE 59; RESP 18; TEMP 36.7; O2SAT 96
[2021-05-23 11:00] LABS: Glucose, Whole Blood 397 mg/dL (60-115)
--- NOTE | 2021-05-23 11:53 | PM.DS ---
DS: Providers Provider Date of Service: 05/23/21 Date of admission: 05/17/21 01:51 Primary care physician: Grant Carlson MD Consults: 05/17/21 01:47 Consult to Infectious Diseases Routine Consulting Provider: Thuy Gale Reason for consultation: COVID PNA DS: Diagnosis Discharge Diagnosis (1) Pneumonia due to COVID-19 virus: Status: Acute (2) Hypoxia: Status: Acute DS: Summary Hospital Course Hospital Course: Admission note HPI ?80-year-old male with a past medical history of hypertension, hyperlipidemia, diabetes, CHF, COPD, CVA, dementia, history of lung cancer presented to the hospital with a chief complaint of generalized weakness/ bilateral leg pain; Patient denies any chest pain palpitations lightheadedness or dizziness.? Denies any fever chills cough or shortness of breath.? Denies any GI or symptoms.? Per ER team when EMS saw the patient patient was saturating 88% on room air; placed on supplemental oxygen subsequent gotten to the hospital for further evaluation.? On presentation patient noted to be febrile and has coarse breath sounds; Chest x-ray showed patchy opacities consistent COVID-19; COVID-19 rapid test came back positive.? Admitted to the hospital for further management. Hospital course The patient was admitted for treatment of COVID-19 infection with hypoxia. Started on IV dexamethasone and oxygen supplement. Evaluated by infectious disease team who recommended no need for remdesivir. Patient responded well to the treatment and was weaned of the oxygen and able to ambulate with assistance from physical therapy team who recommended short-term rehab. To you discharged on 3 more days of dexamethasone. Time Spent with Patient Time attestation: Total time spent providing and/or coordinating discharge services: Discharge coordination time: Greater than 30 minutes Quality: Stroke Does the patient have a stroke diagnosis?: No Physical Exam Vital Signs: Vital Signs: Last Vital Signs Temp 98.1 F 05/23/21 10:55 Pulse 59 05/23/21 10:55 Resp 18 05/23/21 10:55 BP 146/65 H 05/23/21 10:55 Pulse Ox 96 05/23/21 10:55 Oxygen Flow Rate 5 05/17/21 00:35 BMI result Body Mass Index 29.9 Const: Other: Constitutional : Alert, oriented, not in distress Neck : Normal inspection, Supple Cardiovascular : RRR, S1 S2, no lower extremity edema Respiratory : Chest wall moving bilaterally, not in respiratory distress, on room air Gastrointestinal: soft, lax, Normal bowel sounds, Non tender Skin : Warm, Dry Neurological : Alert & oriented x3, No focal deficit DS: Data Data Completed and Pending Labs on day of discharge: Laboratory Results - last 24 hr 05/20/21 05/22/21 05/22/21 23:34 16:09 20:34 POC Glucose 348 H 377 H* Hepatitis A IgM Ab Nonreactive 05/23/21 05/23/21 07:15 10:56 POC Glucose 199 H 397 H* Hepatitis A IgM Ab Discharge Plan Discharge Patient Disposition: [facility] Discharge Diagnosis: COVID-19 infection Referrals: Name,MD Grant [Primary Care Provider] - 1 Week Discharge Medications: New dexamethasone 6 mg tablet 6 mg PO DAILY Qty: 3 RF: 0 Continued losartan 50 mg tablet 50 mg PO QAM RF: 0 furosemide 40 mg tablet 40 mg PO QAM RF: 0 atorvastatin 80 mg tablet 80 mg PO BEDTIME RF: 0 metoprolol succinate 50 mg tablet extended release 24 hr 50 mg PO QAM RF: 0 aspirin 81 mg tablet,delayed release (DR/EC) 81 mg PO QAM RF: 0 amlodipine 10 mg tablet 10 mg PO BEDTIME RF: 0 glimepiride 4 mg tablet 4 mg PO QAM RF: 0 omeprazole 20 mg capsule,delayed release(DR/EC) 20 mg PO QAM RF: 0 hydralazine 50 mg tablet 50 mg PO BID RF: 0 insulin asp prt-insulin aspart [Novolog Mix 70-30FlexPen U-100] 100 unit/mL (70-30) insulin pen 48 unit subcut QAM RF: 0 cholecalciferol (vitamin D3) 25 mcg (1,000 unit) tablet 25 mcg PO QAM RF: 0 insulin asp prt-insulin aspart [Novolog Mix 70-30FlexPen U-100] 100 unit/mL (70-30) insulin pen 37 unit subcut 1630 RF: 0 Discharge Orders: Discharge Order (Routine); Ordered 05/23/21 Ordered By: Douglas Yee Diet: low fat, low cholesterol and low salt diet Activity on Discharge: As tolerated Stand Alone Forms: Patient Portal Discharge page Care Plan Goals: Read below Health Concerns: Read below Plan of Treatment: Read below Assessment: You were admitted to the hospital for evaluation of difficulty breathing. Found to have COVID-19 infection treated with IV steroids and oxygen supplement with good response over the course of hospital stay as you were weaned of oxygen. To continue dexamethasone for 3 more days
--- NOTE | 2021-05-23 13:20 | MHC.CM.PN ---
IMM 05/23/21 Male 80 is discharged today to [facility]. He has been accepted @ [facility]. The Pt accepts the bed offer. Family will not accept the Pt @ home until Friday. Friday is 10 days from the + Covid test. His stepdtrAshely was called x2, no answer. VM left x2. Notification was provided re acceptance at [facility], and transportation is scheduled for 3pm.
== END 2021-05-23 15:24 | disposition skilled nursing facility (03) | DRG 177 ==
LOC: HO.ED 01:59 → HO.EDOVER 02:23 → HO.IMC 05-18 23:30
PROVIDERS: Internal Medicine; Admitting Provider Hospitalist; Emergency Provider Student in an Organized Health Care Education/Training Program; PCP Internal Medicine Geriatric Medicine; Visit Provider Student in an Organized Health Care Education/Training Program
DX: U07.1 COVID-19 (principal); J12.82 Pneumonia due to coronavirus disease 2019; J96.01 Acute respiratory failure with hypoxia; I13.0 Hypertensive heart and chronic kidney disease with heart failure and stage 1 through stage 4 chronic kidney disease, or unspecified chronic kidney disease; N17.9 Acute kidney failure, unspecified; C34.31 Malignant neoplasm of lower lobe, right bronchus or lung; I50.32 Chronic diastolic (congestive) heart failure; F03.90 Unspecified dementia, unspecified severity, without behavioral disturbance, psychotic disturbance, mood disturbance, and anxiety; E11.22 Type 2 diabetes mellitus with diabetic chronic kidney disease; H53.461 Homonymous bilateral field defects, right side; N18.30 Chronic kidney disease, stage 3 unspecified; J44.9 Chronic obstructive pulmonary disease, unspecified; I69.898 Other sequelae of other cerebrovascular disease; Z88.0 Allergy status to penicillin; Z79.4 Long term (current) use of insulin; Z79.82 Long term (current) use of aspirin; Z79.899 Other long term (current) drug therapy
CPT/HCPCS: 36415; 71045; 80048; 80053; 81001; 81003; 82803; 82947; 83605; 83615; 83880; 85025; 85027; 85379; 85610; 86140; 86704; 86706; 86709; 86803; 87040; 87340; 87389; 87635; 93005; 97110; 97116; 97162; 99285; J1100; J1650

== ENCOUNTER 2021-06-24 18:40 | Emergency (ER) | payer MEDICARE, MEDICAID, SELFPAY ==
[2021-06-24 18:57] VITALS: BP 167/90; PULSE 95; O2SAT 97
[2021-06-24 18:58] VITALS: BP 161/82; PULSE 65; RESP 19; TEMP 36.6; O2SAT 99; BMI 33.4
--- NOTE | 2021-06-24 19:04 | ED_ITS ---
HPI - Altered Mental Status General Chief Complaint: General Medical Stated Complaint: HYPOGLYCEMIA Time Seen by Provider: 06/24/21 19:03 Source: patient and family Mode of arrival: ambulatory Limitations: altered mental status History of Present Illness HPI narrative: Patient's history of diabetes on Humulin 70/30 37 units in the evening and 48 units in the morning which is given by visiting nurse apparently patient had the insulin in the morning but did not eat anything and when his stepdaughter came to see him he was on the couch in semi reclining position semiconscious she checked the blood sugar was 24 immediately she given juice with sugar when EMS came blood sugar was 42 patient was given dextrose after arrival patient's blood sugar improved to 167 Related Data Home Medications Medication Instructions Recorded Confirmed amlodipine 10 mg tablet 10 mg PO BEDTIME 03/07/21 05/17/21 aspirin 81 mg tablet,delayed 81 mg PO QAM 03/07/21 05/17/21 release atorvastatin 80 mg tablet 80 mg PO BEDTIME 03/07/21 05/17/21 cholecalciferol (vitamin D3) 25 25 mcg PO QAM 03/07/21 05/17/21 mcg (1,000 unit) tablet furosemide 40 mg tablet 40 mg PO QAM 03/07/21 05/17/21 glimepiride 4 mg tablet 4 mg PO QAM 03/07/21 05/17/21 hydralazine 50 mg tablet 50 mg PO BID 03/07/21 05/17/21 insulin aspar prot-insulin aspart 37 unit SUBCUT 1630 03/07/21 05/17/21 100 unit/mL (70-30) subcutaneous pen (Novolog Mix 70-30FlexPen U-100) insulin aspar prot-insulin aspart 48 unit SUBCUT QAM 03/07/21 05/17/21 100 unit/mL (70-30) subcutaneous pen (Novolog Mix 70-30FlexPen U-100) losartan 50 mg tablet 50 mg PO QAM 03/07/21 05/17/21 metoprolol succinate 50 mg 50 mg PO QAM 03/07/21 05/17/21 tablet,extended release 24 hr omeprazole 20 mg capsule,delayed 20 mg PO QAM 03/07/21 05/17/21 release Previous Rx's Medication Instructions Recorded dexamethasone 6 mg tablet 6 mg PO DAILY #3 tab 05/23/21 Allergies Allergy/AdvReac Type Severity Reaction Status Date / Time Penicillins [PENICILLINS] Allergy Intermediate RASH Verified 04/06/21 10:59 Review of Systems Review of Systems: Yes all other systems are reviewed and are negative [facility] Past Medical History Medical History Adenocarcinoma of right lung (~2020) COPD (chronic obstructive pulmonary disease) Dementia Diabetes Former smoker, stopped smoking in distant past History of CVA (cerebrovascular accident) (~07/2020) HTN (hypertension) Hyperlipidemia Pneumonia Surgical History History of lung biopsy (~10/2020) Social History Social History Household Members: Spouse Household Members Other:: step-son spends the night frequently Housing: Apartment Do you presently have visiting nurse or other home services: Yes Alcohol intake: never Patient Tobacco Use Status: Former Tobacco user Use of substances other than those prescribed or required for medical reasons: No Advance Directives: Yes Advance Directives on File: Yes Advance Directives Date on File: 08/31/20 service: No Current occupational status: retired and disabled Physical Exam Vital Signs: Vital Signs: Last Vital Signs Temp 98 F 06/24/21 18:58 Pulse 65 06/24/21 18:58 Resp 19 06/24/21 18:58 BP 161/82 H 06/24/21 18:58 Pulse Ox 99 06/24/21 18:58 BMI result Body Mass Index 33.4 Appearance: Alert. Oriented X2. No acute distress. Eyes: No pallor or icterus ENT: Pharynx normal. Oral Mucosa moist Neck: Normal inspection. Neck supple. CVS: Normal heart rate and rhythm. Pulses normal. Respiratory: No respiratory distress. Equal air entry bilateral, no wheez ing/rales/rhonchi Abdomen: Soft and nontender. Bowel sounds are present, no mass palpable, no CVA tenderness Skin: Skin warm and dry. Normal skin color. Normal skin turgor. Extremities: No lower extremity edema. No calf tenderness Neuro: Oriented X 2. No motor deficit. No sensory deficit.No cerebellar signs , cranial nerves II-XII intact MDM - Altered Mental Status MDM Narrative Medical decision making narrative: Patient hypoglycemic secondary to poor oral intake blood sugar improved after food was given in the ER no source of infection patient is at his baseline will discharge him home Lab Data Attestation: I reviewed the patient's lab results. Result diagrams: 06/24/21 20:07 06/24/21 20:07 Labs: Lab Results 06/24/21 06/24/21 06/24/21 Range/Units 19:04 20:07 20:07 WBC 12.2 H (4.8-10.8) X10*3/uL RBC 3.97 L (4.60-5.80) X10*6/uL Hgb 11.3 L (14.0-18.0) g/dl Hct 35.7 L (42.0-52.0) % MCV 89.9 (80.0-98.0) fL MCH 28.5 (27.0-33.0) pg MCHC 31.7 (31.0-36.0) g/dl RDW 15.2 (11.0-16.0) % Plt Count 417 H D (160-400) X10*3/uL MPV 9.8 (9.4-12.4) fL Immature Gran % (Auto) 0.7 H (0.0-0.4) % Neut % (Auto) 86.7 H (45-73) % Lymph % (Auto) 8.0 L (20-40) % [place] % (Auto) 3.9 (2-11) % Eos % (Auto) 0.2 (0-4) % Baso % (Auto) 0.5 (0-2) % Lymph # (Auto) 1.0 L (1.2-4.9) X10*3/uL [place] # (Auto) 0.5 (0.1-1.2) X10*3/uL Eos # (Auto) 0.0 (0.0-0.4) X10*3/uL Baso # (Auto) 0.1 (0.0-0.2) X10*3/uL Abs Immat Gran (auto) 0.08 H (0.00-0.03) X10*3/uL Absolute Neuts (auto) 10.6 H (2.0-8.3) x10*3/uL Absolute Nucleated RBC 0.000 (0.0-0.012) X10*3/uL Nucleated RBC % (auto) 0.0 (0.0-0.2) /100WBC Sodium 141 (135-145) mmol/L Potassium 4.1 (3.3-5.1) mmol/L Chloride 98 (96-108) mmol/L Carbon Dioxide 30 H (22-29) mmol/L Anion Gap 17 (12-20) BUN 19 H D (9-16) mg/dL Creatinine 1.43 H (0.5-1.4) mg/dL Estim Creat Clear Calc 46.3 Estimated GFR 47 POC Glucose 112 (60-115) mg/dL Random Glucose 141 H D (60-115) mg/dL Calcium 9.7 (8.4-10.2) mg/dL Urine Color Urine Appearance Urine pH (5.0-8.0) Ur Specific [place] (1.005-1.025) Urine Protein (NEG-TRACE) MG/DL Urine Glucose (UA) (NEG) MG/DL Urine Ketones (NEG) MG/DL Urine Blood (NEG) Urine Nitrite (NEG) Ur Leukocyte Esterase (NEG) Urine RBC (0) /HPF Urine WBC (0-4) /HPF Ur Squamous Epith Cells /LPF Urine Bacteria /LPF 06/24/21 Range/Units 20:07 WBC (4.8-10.8) X10*3/uL RBC (4.60-5.80) X10*6/uL Hgb (14.0-18.0) g/dl Hct (42.0-52.0) % MCV (80.0-98.0) fL MCH (27.0-33.0) pg MCHC (31.0-36.0) g/dl RDW (11.0-16.0) % Plt Count (160-400) X10*3/uL MPV (9.4-12.4) fL Immature Gran % (Auto) (0.0-0.4) % Neut % (Auto) (45-73) % Lymph % (Auto) (20-40) % [place] % (Auto) (2-11) % Eos % (Auto) (0-4) % Baso % (Auto) (0-2) % Lymph # (Auto) (1.2-4.9) X10*3/uL [place] # (Auto) (0.1-1.2) X10*3/uL Eos # (Auto) (0.0-0.4) X10*3/uL Baso # (Auto) (0.0-0.2) X10*3/uL Abs Immat Gran (auto) (0.00-0.03) X10*3/uL Absolute Neuts (auto) (2.0-8.3) x10*3/uL Absolute Nucleated RBC (0.0-0.012) X10*3/uL Nucleated RBC % (auto) (0.0-0.2) /100WBC Sodium (135-145) mmol/L Potassium (3.3-5.1) mmol/L Chloride (96-108) mmol/L Carbon Dioxide (22-29) mmol/L Anion Gap (12-20) BUN (9-16) mg/dL Creatinine (0.5-1.4) mg/dL Estim Creat Clear Calc Estimated GFR POC Glucose (60-115) mg/dL Random Glucose (60-115) mg/dL Calcium (8.4-10.2) mg/dL Urine Color YELLOW Urine Appearance CLEAR Urine pH 6.5 (5.0-8.0) Ur Specific [place] 1.010 (1.005-1.025) Urine Protein NEG (NEG-TRACE) MG/DL Urine Glucose (UA) NEG (NEG) MG/DL Urine Ketones NEG (NEG) MG/DL Urine Blood TRACE (NEG) Urine Nitrite NEG (NEG) Ur Leukocyte Esterase NEG (NEG) Urine RBC 0-2 (0) /HPF Urine WBC 0 (0-4) /HPF Ur Squamous Epith Cells TRACE /LPF Urine Bacteria NONE /LPF Discharge Plan Discharge Clinical Impression: Hypoglycemia Patient Disposition: Home, Self-Care Instructions: Hypoglycemia in a Person with Diabetes (ED) Additional Instructions: Eat well while taking insulin , do not miss your meals Prescriptions: No Action losartan 50 mg tablet 50 mg PO QAM RF: 0 furosemide 40 mg tablet 40 mg PO QAM RF: 0 atorvastatin 80 mg tablet 80 mg PO BEDTIME RF: 0 metoprolol succinate 50 mg tablet extended release 24 hr 50 mg PO QAM RF: 0 aspirin 81 mg tablet,delayed release (DR/EC) 81 mg PO QAM RF: 0 amlodipine 10 mg tablet 10 mg PO BEDTIME RF: 0 glimepiride 4 mg tablet 4 mg PO QAM RF: 0 omeprazole 20 mg capsule,delayed release(DR/EC) 20 mg PO QAM RF: 0 hydralazine 50 mg tablet 50 mg PO BID RF: 0 insulin asp prt-insulin aspart [Novolog Mix 70-30FlexPen U-100] 100 unit/mL (70-30) insulin pen 48 unit subcut QAM RF: 0 cholecalciferol (vitamin D3) 25 mcg (1,000 unit) tablet 25 mcg PO QAM RF: 0 insulin asp prt-insulin aspart [Novolog Mix 70-30FlexPen U-100] 100 unit/mL (70-30) insulin pen 37 unit subcut 1630 RF: 0 dexamethasone 6 mg tablet 6 mg PO DAILY Qty: 3 RF: 0
[2021-06-24 19:09] LABS: Glucose, Whole Blood 112 mg/dL (60-115)
[2021-06-24 20:12] LABS: MANUAL DIFF FLAG NO
[2021-06-24 20:13] LABS: Basophils Absolute Auto 0.1 X10*3/uL (0.0-0.2); Basophils Percent Auto 0.5 % (0-2); Eosinophils Percent Auto 0.2 % (0-4); Hematocrit 35.7 % (42.0-52.0); Hemoglobin 11.3 g/dl (14.0-18.0); Imm Gran Abs Auto 0.08 X10*3/uL (0.00-0.03); Imm Gran Pct Auto 0.7 % (0.0-0.4); Mean Corpuscular HGB Conc 31.7 g/dl (31.0-36.0); Mean Corpuscular Hemoglobin 28.5 pg (27.0-33.0); Mean Corpuscular Volume 89.9 fL (80.0-98.0); Mean Platelet Volume 9.8 fL (9.4-12.4); Monocytes Absolute Auto 0.5 X10*3/uL (0.1-1.2); Monocytes Percent Auto 3.9 % (2-11); Neutrophils Absolute Auto 10.6 x10*3/uL (2.0-8.3); Neutrophils Percent Auto 86.7 % (45-73); Platelet Count 417 X10*3/uL (160-400); Red Blood Count 3.97 X10*6/uL (4.60-5.80); Red Cell Distribution Width 15.2 % (11.0-16.0); White Blood Count 12.2 X10*3/uL (4.8-10.8)
[2021-06-24 20:15] LABS: Appearance Urine CLEAR; Color Urine YELLOW; Glucose Urine UA NEG (NEG); Leukocyte Esterase Urine NEG (NEG); Nitrite Urine NEG (NEG); PH 6.5 (5.0-8.0); UACC Culture Trigger NO; Urine Blood TRACE (NEG); Urine Ketones NEG (NEG); Urine Protein NEG (NEG-TRACE)
[2021-06-24 20:35] LABS: RBC Urine 0-2 /HPF (0); Squamous Epithelial Cell Urine TRACE /LPF; WBC Urine 0 /HPF (0-4)
[2021-06-24 20:38] LABS: Anion Gap 17 (12-20); Blood Urea Nitrogen 19 mg/dL (9-16); Calcium 9.7 mg/dL (8.4-10.2); Carbon Dioxide 30 mmol/L (22-29); Chloride 98 mmol/L (96-108); Creatinine Clr Calc Pharmacy 46.3; Estimated Glomerular Filt Rate 47; Glucose Random 141 mg/dL (60-115); Potassium 4.1 mmol/L (3.3-5.1); Sodium 141 mmol/L (135-145)
--- NOTE | 2021-06-24 23:00 | PC.NURSE ---
D/C'd into the care of his sobn Jevon. i brought the pt to front of waiting room in a wheelchair and assisted him into private vehicle of Jevon.Pt and Jevon vebralized an understanding of all DC orders. I assisted pt from wheelchair into private vehicle.
== END 2021-06-24 23:00 | disposition home or self-care (01) ==
PROVIDERS: Emergency Provider Internal Medicine
DX: E11.649 Type 2 diabetes mellitus with hypoglycemia without coma (principal); I10 Essential (primary) hypertension; J44.9 Chronic obstructive pulmonary disease, unspecified; Z79.4 Long term (current) use of insulin; Z79.899 Other long term (current) drug therapy; Z79.82 Long term (current) use of aspirin; Z87.891 Personal history of nicotine dependence
CPT/HCPCS: 36415; 80048; 81001; 82947; 85025; 96360; 99284

== ENCOUNTER 2021-07-07 01:00 | Inpatient (IN) | payer MEDICARE, MEDICAID, SELFPAY ==
[2021-07-07] VITALS (9 sets, daily range): BP systolic 121–150; BP diastolic 38–70; PULSE 72–95; RESP 15–21; TEMP 36.6–39.4; O2SAT 90–99; BMI 27.8
--- NOTE | ~2021-07-07 | XR_ITS ---
EXAMINATION: XR CHEST CLINICAL INFORMATION: Weakness COMPARISON: 05/17/2021 TECHNIQUE: Frontal view of the chest was obtained. FINDINGS: Cardiac leads overlie the chest. The lungs are well expanded. Patchy opacities of the lower lungs bilaterally. No pleural effusion or pneumothorax. The cardiomediastinal silhouette is unchanged with a calcified aorta. XR/XR chest 1V IMPRESSION: Patchy opacities are seen in both lungs which could be infectious or inflammatory.
--- NOTE | ~2021-07-07 | CT_ITS ---
EXAMINATION: CT HEAD WITHOUT CONTRAST CLINICAL INFORMATION: Confusion COMPARISON: 03/07/2021 TECHNIQUE: Contiguous axial imaging was performed from the skull base to vertex without intravenous contrast. This CT examination was performed using dose optimization techniques as appropriate, variously including the following: * Automated exposure control * Adjustment of mA and/or kV according to patient size (this includes techniques or standardized protocols for targeted exams where dose is matched to indication/reason for exam; i.e. extremities or head) Use of iterative reconstruction technique DLP: 707 mGy-cm. FINDINGS: There is no evidence of acute intracranial hemorrhage or territorial infarction. No abnormal mass effect or midline shift is seen. Chronic left parietal and occipital infarcts. Wat[place] to white matter differentiation is otherwise well preserved. No extra-axial fluid collections are identified. No hydrocephalus. Proportional prominence of the ventricles and sulcal spaces is consistent with mild volume loss. Patchy periventricular and deep white matter hypoattenuation is consistent with mild small vessel ischemic changes. The osseous structures and soft tissues are normal. The mastoid air cells and visualized portions of the paranasal sinuses are well aerated. CT/CT head/brain wo con IMPRESSION: No acute intracranial pathology. Chronic left parieto-occipital infarcts.
--- NOTE | 2021-07-07 01:07 | ECG_ITS ---
Test Reason : AMS Blood Pressure : / mmHG Vent. Rate : 092 BPM Atrial Rate : 092 BPM P-R Int : 166 ms QRS Dur : 074 ms QT Int : 332 ms P-R-T Axes : -11 015 045 degrees QTc Int : 410 ms Normal sinus rhythm Normal ECG When compared with ECG of 17-MAY-2021 00:35, No significant change was found Referred By: Penny Weathers Electronically Signed By:KRYSTEN COURTNEY MD
--- NOTE | 2021-07-07 01:08 | ED_ITS ---
HPI - Altered Mental Status General Chief Complaint: Altered Mental Status Stated Complaint: ams Time Seen by Provider: 07/07/21 01:06 Source: patient and EMS Mode of arrival: EMS Limitations: altered mental status (poor historian one word answers) History of Present Illness MD complaint: other (family told EMS he didnt take his medications today then woke up and peed on the floor he also ate a lot today) Onset (ago): unknown (EMS believes he was himself sometime earlier today) Timing confirmed by: family member Severity: mild Consistency of symptoms: unknown Context: other (hx of dementia) Associated symptoms: denies other symptoms Related Data Home Medications Medication Instructions Recorded Confirmed amlodipine 10 mg tablet 10 mg PO BEDTIME 03/07/21 07/07/21 aspirin 81 mg tablet,delayed 81 mg PO QAM 03/07/21 07/07/21 release atorvastatin 80 mg tablet 80 mg PO BEDTIME 03/07/21 07/07/21 cholecalciferol (vitamin D3) 25 25 mcg PO QAM 03/07/21 07/07/21 mcg (1,000 unit) tablet furosemide 40 mg tablet 40 mg PO QAM 03/07/21 07/07/21 omeprazole 20 mg capsule,delayed 20 mg PO QAM 03/07/21 07/07/21 release Previous Rx's Medication Instructions Recorded dexamethasone 6 mg tablet 6 mg PO DAILY #3 tab 05/23/21 Allergies Allergy/AdvReac Type Severity Reaction Status Date / Time Penicillins Allergy Intermediate RASH Verified 04/06/21 10:59 [PENICILLINS] Review of Systems Verdana 4l Review of Systems: Verdana 4d ROS unable to be obtained Verdana 4d due to poor historian, cognitive impairment Verdana 4d [facility] Past Medical History Medical History Adenocarcinoma of right lung (~2020) COPD (chronic obstructive pulmonary disease) Dementia Diabetes Former smoker, stopped smoking in distant past History of CVA (cerebrovascular accident) (~07/2020) HTN (hypertension) Hyperlipidemia Pneumonia Surgical History History of lung biopsy (~10/2020) Social History Social History Household Members: Spouse Household Members Other:: step-son spends the night frequently Housing: Apartment Do you presently have visiting nurse or other home services: Yes Alcohol intake: never Patient Tobacco Use Status: Former Tobacco user Advance Directives: Yes Advance Directives on File: Yes Advance Directives Date on File: 08/31/20 service: No Current occupational status: retired and disabled Physical Exam Verdana 4l Vital Signs: Verdana 4d Verdana 4d Vital Signs: Verdana 4d Verdana 4Bd Last Vital Signs Verdana 4d Outgoing Inspector New 4d Outgoing Inspector New 4d Temp 103 F H 07/07/21 05:17 Outgoing Inspector New 4d Pulse 92 07/07/21 05:17 Outgoing Inspector New 4d Resp 18 07/07/21 05:17 BP 137/61 07/07/21 05:17 Pulse Ox 95 07/07/21 05:17 BMI result Body Mass Index 27.8 Appearance: Alert. Oriented to person. No acute distress. Eyes: Pupils equal, round and reactive to light. ENT: Pharynx normal. Neck: Normal inspection. Neck supple. CVS: Normal heart rate and rhythm. Pulses normal. Respiratory: No respiratory distress. Breath sounds diminished at bases Abdomen: Soft and non-tender. Skin: Skin warm and dry. Normal skin color. Normal skin turgor. Extremities: 1+ pitting lower extremity edema. No calf ttp Neuro: Oriented to person. No motor deficit. No sensory deficit. Course Course Course Narrative: + fever - lactic acid, cultures UA and CXR ordered along with COVID and flu swab given CXR and recent admit treated for HCAP - started on cefepime and vancomycin MDM - Altered Mental Status MDM Narrative Medical decision making narrative: 80 yo male with hx of CHF, CVA, COPD, DM, dementia here with c/o being confused per family to EMS unknown last well but EMS notes sometime today he refused his medications with VNA and then woke up prior to arrival and urinated on the floor - currently he is alert and oriented to person he is annoyed he is in the ED. No focal weakness will obtain basic labs, CXR, UA and attempt to reach family. Dispo per results and findings. Lab Data Result diagrams: 07/07/21 01:54 07/07/21 01:54 Labs: Lab Results 07/07/21 07/07/21 07/07/21 Range/Units 01:45 01:45 01:54 WBC 9.0 (4.8-10.8) X10*3/uL RBC 3.83 L (4.60-5.80) X10*6/uL Hgb 10.8 L (14.0-18.0) g/dl Hct 34.3 L (42.0-52.0) % MCV 89.6 (80.0-98.0) fL MCH 28.2 (27.0-33.0) pg MCHC 31.5 (31.0-36.0) g/dl RDW 15.8 (11.0-16.0) % Plt Count 287 D (160-400) X10*3/uL MPV 10.7 (9.4-12.4) fL Immature Gran % (Auto) 0.2 (0.0-0.4) % Neut % (Auto) 85.3 H (45-73) % Lymph % (Auto) 6.1 L (20-40) % [place] % (Auto) 4.5 (2-11) % Eos % (Auto) 3.7 (0-4) % Baso % (Auto) 0.2 (0-2) % Lymph # (Auto) 0.6 L (1.2-4.9) X10*3/uL [place] # (Auto) 0.4 (0.1-1.2) X10*3/uL Eos # (Auto) 0.3 (0.0-0.4) X10*3/uL Baso # (Auto) 0.0 (0.0-0.2) X10*3/uL Abs Immat Gran (auto) 0.02 (0.00-0.03) X10*3/uL Absolute Neuts (auto) 7.7 (2.0-8.3) x10*3/uL Absolute Nucleated RBC 0.000 (0.0-0.012) X10*3/uL Nucleated RBC % (auto) 0.0 (0.0-0.2) /100WBC VBG pH (7.32-7.43) VBG pCO2 mmHg VBG pO2 mmHg VBG HCO3 (22-26) mmol/L VBG O2 Saturation % VBG Base Excess mmol/L Sodium (135-145) mmol/L Potassium (3.3-5.1) mmol/L Chloride (96-108) mmol/L Carbon Dioxide (22-29) mmol/L Anion Gap (12-20) BUN (9-16) mg/dL Creatinine (0.5-1.4) mg/dL Estim Creat Clear Calc Estimated GFR Random Glucose (60-115) mg/dL Lactic Acid (0.5-2.0) mmol/L Calcium (8.4-10.2) mg/dL Magnesium (1.6-2.6) mg/dL Total Bilirubin (0.0-1.0) mg/dL Direct Bilirubin (0.0-0.5) mg/dL AST (5-37) U/L ALT (0-40) U/L Alkaline Phosphatase (39-117) U/L Total Protein (6.5-8.0) g/dL Albumin (3.5-5.0) g/dL TSH (0.32-4.0) uIU/mL Urine Color Urine Appearance Urine pH (5.0-8.0) Ur Specific [place] (1.005-1.025) Urine Protein (NEG-TRACE) MG/DL Urine Glucose (UA) (NEG) MG/DL Urine Ketones (NEG) MG/DL Urine Blood (NEG) Urine Nitrite (NEG) Ur Leukocyte Esterase (NEG) Urine RBC (0) /HPF Urine WBC (0-4) /HPF Ur Squamous Epith Cells /LPF Uric Acid Crystals /LPF Urine Bacteria /LPF Urine Mucus /LPF Ethyl Alcohol mg/dL COVID-19 (SHANA) Negative (Negative) COVID-19 Clin Com See Note Influenza Type A (MICHELLE) Negative (Negative) Influenza Type B (MICHELLE) Negative (Negative) Influenza A & B Note See Note 07/07/21 07/07/21 07/07/21 Range/Units 01:54 01:54 01:54 WBC (4.8-10.8) X10*3/uL RBC (4.60-5.80) X10*6/uL Hgb (14.0-18.0) g/dl Hct (42.0-52.0) % MCV (80.0-98.0) fL MCH (27.0-33.0) pg MCHC (31.0-36.0) g/dl RDW (11.0-16.0) % Plt Count (160-400) X10*3/uL MPV (9.4-12.4) fL Immature Gran % (Auto) (0.0-0.4) % Neut % (Auto) (45-73) % Lymph % (Auto) (20-40) % [place] % (Auto) (2-11) % Eos % (Auto) (0-4) % Baso % (Auto) (0-2) % Lymph # (Auto) (1.2-4.9) X10*3/uL [place] # (Auto) (0.1-1.2) X10*3/uL Eos # (Auto) (0.0-0.4) X10*3/uL Baso # (Auto) (0.0-0.2) X10*3/uL Abs Immat Gran (auto) (0.00-0.03) X10*3/uL Absolute Neuts (auto) (2.0-8.3) x10*3/uL Absolute Nucleated RBC (0.0-0.012) X10*3/uL Nucleated RBC % (auto) (0.0-0.2) /100WBC VBG pH (7.32-7.43) VBG pCO2 mmHg VBG pO2 mmHg VBG HCO3 (22-26) mmol/L VBG O2 Saturation % VBG Base Excess mmol/L Sodium 142 (135-145) mmol/L Potassium 4.9 (3.3-5.1) mmol/L Chloride 103 (96-108) mmol/L Carbon Dioxide 28 (22-29) mmol/L Anion Gap 16 (12-20) BUN 33 H D (9-16) mg/dL Creatinine 2.10 H (0.5-1.4) mg/dL Estim Creat Clear Calc 32.7 Estimated GFR 30 Random Glucose 182 H (60-115) mg/dL Lactic Acid (0.5-2.0) mmol/L Calcium 9.1 D (8.4-10.2) mg/dL Magnesium 1.9 (1.6-2.6) mg/dL Total Bilirubin 0.5 (0.0-1.0) mg/dL Direct Bilirubin 0.2 (0.0-0.5) mg/dL AST 15 D (5-37) U/L ALT 15 (0-40) U/L Alkaline Phosphatase 115 (39-117) U/L Total Protein 7.0 (6.5-8.0) g/dL Albumin 3.4 L (3.5-5.0) g/dL TSH 0.79 (0.32-4.0) uIU/mL Urine Color Urine Appearance Urine pH (5.0-8.0) Ur Specific [place] (1.005-1.025) Urine Protein (NEG-TRACE) MG/DL Urine Glucose (UA) (NEG) MG/DL Urine Ketones (NEG) MG/DL Urine Blood (NEG) Urine Nitrite (NEG) Ur Leukocyte Esterase (NEG) Urine RBC (0) /HPF Urine WBC (0-4) /HPF Ur Squamous Epith Cells /LPF Uric Acid Crystals /LPF Urine Bacteria /LPF Urine Mucus /LPF Ethyl Alcohol < 10 mg/dL COVID-19 (SHANA) (Negative) COVID-19 Clin Com Influenza Type A (MICHELLE) (Negative) Influenza Type B (MICHELLE) (Negative) Influenza A & B Note 07/07/21 07/07/21 07/07/21 Range/Units 01:54 01:58 01:59 WBC (4.8-10.8) X10*3/uL RBC (4.60-5.80) X10*6/uL Hgb (14.0-18.0) g/dl Hct (42.0-52.0) % MCV (80.0-98.0) fL MCH (27.0-33.0) pg MCHC (31.0-36.0) g/dl RDW (11.0-16.0) % Plt Count (160-400) X10*3/uL MPV (9.4-12.4) fL Immature Gran % (Auto) (0.0-0.4) % Neut % (Auto) (45-73) % Lymph % (Auto) (20-40) % [place] % (Auto) (2-11) % Eos % (Auto) (0-4) % Baso % (Auto) (0-2) % Lymph # (Auto) (1.2-4.9) X10*3/uL [place] # (Auto) (0.1-1.2) X10*3/uL Eos # (Auto) (0.0-0.4) X10*3/uL Baso # (Auto) (0.0-0.2) X10*3/uL Abs Immat Gran (auto) (0.00-0.03) X10*3/uL Absolute Neuts (auto) (2.0-8.3) x10*3/uL Absolute Nucleated RBC (0.0-0.012) X10*3/uL Nucleated RBC % (auto) (0.0-0.2) /100WBC VBG pH 7.44 H (7.32-7.43) VBG pCO2 44 mmHg VBG pO2 47 mmHg VBG HCO3 30 H (22-26) mmol/L VBG O2 Saturation 70.0 % VBG Base Excess 5.3 mmol/L Sodium (135-145) mmol/L Potassium (3.3-5.1) mmol/L Chloride (96-108) mmol/L Carbon Dioxide (22-29) mmol/L Anion Gap (12-20) BUN (9-16) mg/dL Creatinine (0.5-1.4) mg/dL Estim Creat Clear Calc Estimated GFR Random Glucose (60-115) mg/dL Lactic Acid 2.3 H* (0.5-2.0) mmol/L Calcium (8.4-10.2) mg/dL Magnesium (1.6-2.6) mg/dL Total Bilirubin (0.0-1.0) mg/dL Direct Bilirubin (0.0-0.5) mg/dL AST (5-37) U/L ALT (0-40) U/L Alkaline Phosphatase (39-117) U/L Total Protein (6.5-8.0) g/dL Albumin (3.5-5.0) g/dL TSH (0.32-4.0) uIU/mL Urine Color YELLOW Urine Appearance CLEAR Urine pH 7.0 (5.0-8.0) Ur Specific [place] 1.010 (1.005-1.025) Urine Protein NEG (NEG-TRACE) MG/DL Urine Glucose (UA) >=1000 H (NEG) MG/DL Urine Ketones NEG (NEG) MG/DL Urine Blood NEG (NEG) Urine Nitrite NEG (NEG) Ur Leukocyte Esterase NEG (NEG) Urine RBC 0-2 (0) /HPF Urine WBC 0 (0-4) /HPF Ur Squamous Epith Cells TRACE /LPF Uric Acid Crystals 1+ /LPF Urine Bacteria NONE /LPF Urine Mucus TRACE /LPF Ethyl Alcohol mg/dL COVID-19 (SHANA) (Negative) COVID-19 Clin Com Influenza Type A (MICHELLE) (Negative) Influenza Type B (MICHELLE) (Negative) Influenza A & B Note ECG Data ECG #1: Attestation: I personally reviewed and interpreted this ECG as follows: ECG interpretation date: 07/07/21 ECG interpretation time: 01:43 Interpretation: Rate:92 Rhythm: NSR [place]: normal Normal P waves. Normal LAUREN. Normal QRS complex. ST T wave : normal no NEAL qTC: normal prior studies: no acute ischemia The study has been interpreted contemporaneously by me. . Discharge Plan Discharge Clinical Impression: ELIZABETH (acute kidney injury), Acidosis, lactic, Acute confusion Fever Qualifiers: Fever type: unspecified Qualified Code(s): R50.9 - Fever, unspecified Pneumonia Qualifiers: Pneumonia type: due to unspecified organism Laterality: bilateral Lung location: lower lobe of lung Qualified Code(s): J18.9 - Pneumonia, unspecified organism Patient Disposition: Admitted As Inpatient
[2021-07-07 02:05] LABS: VBG Base Excess 5.3 mmol/L; VBG HCO3 30 mmol/L (22-26); VBG pCO2 44 mmHg; VBG pH 7.44 (7.32-7.43); VBG pO2 47 mmHg
[2021-07-07 02:05] LABS: Venous Blood Gas Refer to POC result
[2021-07-07 02:06] LABS: MANUAL DIFF FLAG NO
[2021-07-07 02:09] LABS: Basophils Percent Auto 0.2 % (0-2); Eosinophils Absolute Auto 0.3 X10*3/uL (0.0-0.4); Eosinophils Percent Auto 3.7 % (0-4); Hematocrit 34.3 % (42.0-52.0); Hemoglobin 10.8 g/dl (14.0-18.0); Imm Gran Abs Auto 0.02 X10*3/uL (0.00-0.03); Imm Gran Pct Auto 0.2 % (0.0-0.4); Lymphocytes Absolute Auto 0.6 X10*3/uL (1.2-4.9); Lymphocytes Percent Auto 6.1 % (20-40); Mean Corpuscular HGB Conc 31.5 g/dl (31.0-36.0); Mean Corpuscular Hemoglobin 28.2 pg (27.0-33.0); Mean Corpuscular Volume 89.6 fL (80.0-98.0); Mean Platelet Volume 10.7 fL (9.4-12.4); Monocytes Absolute Auto 0.4 X10*3/uL (0.1-1.2); Monocytes Percent Auto 4.5 % (2-11); Neutrophils Absolute Auto 7.7 x10*3/uL (2.0-8.3); Neutrophils Percent Auto 85.3 % (45-73); Platelet Count 287 X10*3/uL (160-400); Red Blood Count 3.83 X10*6/uL (4.60-5.80); Red Cell Distribution Width 15.8 % (11.0-16.0)
[2021-07-07] MEDS: cefEPime HCl 2 GM in 0.9 % Sodium Chloride 50 ML IV ×3 (02:13→22:26)
[2021-07-07] MEDS: Acetaminophen 325 MG TABLET 650 MG PO (02:13)
[2021-07-07 02:15] LABS: Appearance Urine CLEAR; Color Urine YELLOW; Glucose Urine UA >=1000 MG/DL (NEG); Leukocyte Esterase Urine NEG (NEG); Nitrite Urine NEG (NEG); Urine Blood NEG (NEG); Urine Ketones NEG (NEG); Urine Protein NEG (NEG-TRACE)
[2021-07-07 02:21] LABS: Ethanol < 10 mg/dL
[2021-07-07 02:25] LABS: Alanine Aminotransferase 15 U/L (0-40); Albumin Level 3.4 g/dL (3.5-5.0); Alkaline Phosphatase 115 U/L (39-117); Anion Gap 16 (12-20); Aspartate Amino Transferase 15 U/L (5-37); Bilirubin Direct 0.2 mg/dL (0.0-0.5); Bilirubin Total 0.5 mg/dL (0.0-1.0); Blood Urea Nitrogen 33 mg/dL (9-16); Calcium 9.1 mg/dL (8.4-10.2); Carbon Dioxide 28 mmol/L (22-29); Chloride 103 mmol/L (96-108); Creatinine Clr Calc Pharmacy 32.7; Estimated Glomerular Filt Rate 30; Glucose Random 182 mg/dL (60-115); Magnesium 1.9 mg/dL (1.6-2.6); Potassium 4.9 mmol/L (3.3-5.1); Sodium 142 mmol/L (135-145)
[2021-07-07 02:27] LABS: COVID-19 Test Negative (Negative); IDNOW Serial# 9DD0AD1C; Influenza A Negative (Negative); Influenza B2 Negative (Negative)
[2021-07-07 02:29] LABS: Lactic Acid 2.3 mmol/L (0.5-2.0)
[2021-07-07 02:30] LABS: Mucus Urine TRACE /LPF; RBC Urine 0-2 /HPF (0); Squamous Epithelial Cell Urine TRACE /LPF; Uric Acid Crystals Urine 1+ /LPF; WBC Urine 0 /HPF (0-4)
[2021-07-07] MEDS: 0.9 % Sodium Chloride 500 ML IV (02:30)
[2021-07-07 02:45] LABS: TSH reflex Free T4 0.79 uIU/mL (0.32-4.0)
[2021-07-07] MEDS: vancomycin HCL 1,250 MG in 0.9 % Sodium Chloride 250 ML 166.67 MG IV (03:57)
[2021-07-07 04:05] LABS: Reflex Lactate? Lactic Acid Added
--- NOTE | 2021-07-07 04:07 | PC.NURSE ---
pt medicated as per emar.
--- NOTE | 2021-07-07 04:35 | PC.NURSE ---
PT refusing lab work for lactic acid level. have attempted 3x. will ask again later
[2021-07-07] MEDS: Azithromycin 500 MG in 0.9 % Sodium Chloride 250 ML 125 MG IV (05:00)
--- NOTE | 2021-07-07 06:13 | P.HPHOSP_ITS ---
History of Present Illness Date of Service: 07/07/21 Chief Complaint: Confused This is an 80-year-old male with past medical history of adenocarcinoma of the right lung, COPD, dementia, diabetes, history of CVA, hyperlipidemia, hypertension presents to the hospital with increased confusion. History is obtained from family as patient is confused, oriented to self only, unable to give much history. According to the family patient has become more and more confused over the last few days. He has urinated on the floor, not directable, and his baseline is usually alert oriented x3. I am unable to get any more review of system given the patient's confusion Of note patient was discharged from the hospital in May after being treated for COVID-19 pneumonia On arrival to the ED his vitals are significant for a temp of 102.3?, satting 95% on room air Labs are significant for WBC count of 9.0, hemoglobin of 10.8, hematocrit 34.3, pH of 7.44, CO2 of 47, creatinine of 2.1 with a baseline of around 1.4, lactic acid of 2.3, UA negative, COVID-19 not tested negative chest x-ray shows patchy opacities in both lungs Head CT negative for any acute intracranial pathology Review of Systems Verdana 4l Review of Systems: Yes Unobtainable due to mental Verdana 4d condition and Unobtainable due to mental status PMFSH Medical History Adenocarcinoma of right lung (~2020) COPD (chronic obstructive pulmonary disease) Dementia Diabetes Former smoker, stopped smoking in distant past History of CVA (cerebrovascular accident) (~07/2020) HTN (hypertension) Hyperlipidemia Pneumonia Pertinent family history: No history of CAD Surgical History History of lung biopsy (~10/2020) Social History Household Members: Spouse Household Members Other:: step-son spends the night frequently Housing: Apartment Do you presently have visiting nurse or other home services: Yes Alcohol intake: never Patient Tobacco Use Status: Former Tobacco user Advance Directives: Yes Advance Directives on File: Yes Advance Directives Date on File: 08/31/20 service: No Current occupational status: retired and disabled Meds Allergies Allergy/AdvReac Type Severity Reaction Status Date / Time Penicillins Allergy Intermediate RASH Verified 04/06/21 10:59 [PENICILLINS] Active Medications: Current Medications Acetaminophen (Acetaminophen 325 Mg Tablet) 650 mg PO Q6H PRN PRN Reason: Pain, Mild (Pain Scale 1-3) Docusate Sodium (Docusate Sodium 100 Mg Capsule) 100 mg PO DAILY PRN PRN Reason: Constipation Heparin Sodium (Porcine) (Heparin Sodium,Porcine 5,000 Unit/Ml Vial) 5,000 unit SUBCUT Q12H EBER Ceftriaxone Sodium 1 gm/ (Sodium Chloride) 50 mls @ 100 mls/hr IV Q24H EBER Azithromycin 500 mg/ Sodium (Chloride) 250 mls @ 125 mls/hr IV Q24H EBER Ondansetron HCl (Ondansetron Hcl 4 Mg/2 Ml Vial) 4 mg IVPUSH Q8H PRN PRN Reason: Nausea and Vomiting Pharmacy Consult (Consult Rx Vancomycin Dosing) 1 each MISCELLANE DAILY PRN PRN Reason: Consult order Sodium Chloride (0.9 % Sodium Chloride Flush 3 Ml Syringe) [facility] Medications Medication Instructions Recorded Confirmed Last Taken Type amlodipine 10 mg 10 mg PO BEDTIME 03/07/21 07/07/21 05/16/21 History tablet aspirin 81 mg 81 mg PO QAM 03/07/21 07/07/21 05/16/21 History tablet,delayed release atorvastatin 80 80 mg PO BEDTIME 03/07/21 07/07/21 05/16/21 History mg tablet cholecalciferol 25 mcg PO QAM 03/07/21 07/07/21 05/16/21 History (vitamin D3) 25 mcg (1,000 unit) tablet furosemide 40 mg 40 mg PO QAM 03/07/21 07/07/21 05/16/21 History tablet omeprazole 20 mg 20 mg PO QAM 03/07/21 07/07/21 05/16/21 History capsule,delayed release Physical Exam Verdana 4l Vital Signs and Narrative: Verdana 4d Verdana 4d Vital Signs: Verdana 4d Verdana 4Bd Last Vital Signs Verdana 4d Computer Systems Engineer New 4d Computer Systems Engineer New 4d Temp 103 F H 07/07/21 05:17 Computer Systems Engineer New 4d Pulse 92 07/07/21 05:17 Computer Systems Engineer New 4d Resp 18 07/07/21 05:17 BP 137/61 07/07/21 05:17 Pulse Ox 95 07/07/21 05:17 BMI result Body Mass Index 27.8 Const: Other: Patient is confused, trying to get out of bed, not answering questions approp riately General: no acute distress Eyes: General: appearance normal, both eyes and all related structures Pupils: Equal, round and reactive pupils present Resp: Other: Crackles bilaterally Effort & Inspection: normal respiratory effort Cardio: Rate: regular rate Rhythm: regular rhythm GI: Palpation (GI): Soft to palpation Auscultation: normal bowel sounds Skin: General skin exam: no rashes or lesions noted Neuro: Cranial nerves: Yes Equal, round and reactive pupils present Extrem: General: Yes normal to inspection and Yes no pedal edema Results Labs CBC and Chem 7: 07/07/21 01:54 07/07/21 01:54 Labs: Laboratory Results - last 24 hr 07/07/21 07/07/21 07/07/21 01:45 01:45 01:54 MCV 89.6 MCH 28.2 MCHC 31.5 RDW 15.8 Plt Count 287 D MPV 10.7 Immature Gran % (Auto) 0.2 Neut % (Auto) 85.3 H Lymph % (Auto) 6.1 L [place] % (Auto) 4.5 Eos % (Auto) 3.7 Baso % (Auto) 0.2 Lymph # (Auto) 0.6 L [place] # (Auto) 0.4 Eos # (Auto) 0.3 Baso # (Auto) 0.0 Abs Immat Gran (auto) 0.02 Absolute Neuts (auto) 7.7 Absolute Nucleated RBC 0.000 Nucleated RBC % (auto) 0.0 VBG pH VBG pCO2 VBG pO2 VBG HCO3 VBG O2 Saturation VBG Base Excess Anion Gap Estim Creat Clear Calc Estimated GFR Random Glucose Lactic Acid Calcium Magnesium Total Bilirubin Direct Bilirubin AST ALT Alkaline Phosphatase Total Protein Albumin TSH Urine Color Urine Appearance Urine pH Ur Specific [place] Urine Protein Urine Glucose (UA) Urine Ketones Urine Blood Urine Nitrite Ur Leukocyte Esterase Urine RBC Urine WBC Ur Squamous Epith Cells Uric Acid Crystals Urine Bacteria Urine Mucus Ethyl Alcohol COVID-19 (SHANA) Negative COVID-19 Clin Com See Note Influenza Type A (MICHELLE) Negative Influenza Type B (MICHELLE) Negative Influenza A & B Note See Note 07/07/21 07/07/21 07/07/21 01:54 01:54 01:54 MCV MCH MCHC RDW Plt Count MPV Immature Gran % (Auto) Neut % (Auto) Lymph % (Auto) [place] % (Auto) Eos % (Auto) Baso % (Auto) Lymph # (Auto) [place] # (Auto) Eos # (Auto) Baso # (Auto) Abs Immat Gran (auto) Absolute Neuts (auto) Absolute Nucleated RBC Nucleated RBC % (auto) VBG pH VBG pCO2 VBG pO2 VBG HCO3 VBG O2 Saturation VBG Base Excess Anion Gap 16 Estim Creat Clear Calc 32.7 Estimated GFR 30 Random Glucose 182 H Lactic Acid Calcium 9.1 D Magnesium 1.9 Total Bilirubin 0.5 Direct Bilirubin 0.2 AST 15 D ALT 15 Alkaline Phosphatase 115 Total Protein 7.0 Albumin 3.4 L TSH 0.79 Urine Color Urine Appearance Urine pH Ur Specific [place] Urine Protein Urine Glucose (UA) Urine Ketones Urine Blood Urine Nitrite Ur Leukocyte Esterase Urine RBC Urine WBC Ur Squamous Epith Cells Uric Acid Crystals Urine Bacteria Urine Mucus Ethyl Alcohol < 10 COVID-19 (SHANA) COVID-19 Clin Com Influenza Type A (MICHELLE) Influenza Type B (MICHELLE) Influenza A & B Note 07/07/21 07/07/21 07/07/21 01:54 01:58 01:59 MCV MCH MCHC RDW Plt Count MPV Immature Gran % (Auto) Neut % (Auto) Lymph % (Auto) [place] % (Auto) Eos % (Auto) Baso % (Auto) Lymph # (Auto) [place] # (Auto) Eos # (Auto) Baso # (Auto) Abs Immat Gran (auto) Absolute Neuts (auto) Absolute Nucleated RBC Nucleated RBC % (auto) VBG pH 7.44 H VBG pCO2 44 VBG pO2 47 VBG HCO3 30 H VBG O2 Saturation 70.0 VBG Base Excess 5.3 Anion Gap Estim Creat Clear Calc Estimated GFR Random Glucose Lactic Acid 2.3 H* Calcium Magnesium Total Bilirubin Direct Bilirubin AST ALT Alkaline Phosphatase Total Protein Albumin TSH Urine Color YELLOW Urine Appearance CLEAR Urine pH 7.0 Ur Specific [place] 1.010 Urine Protein NEG Urine Glucose (UA) >=1000 H Urine Ketones NEG Urine Blood NEG Urine Nitrite NEG Ur Leukocyte Esterase NEG Urine RBC 0-2 Urine WBC 0 Ur Squamous Epith Cells TRACE Uric Acid Crystals 1+ Urine Bacteria NONE Urine Mucus TRACE Ethyl Alcohol COVID-19 (SHANA) COVID-19 Clin Com Influenza Type A (MICHELLE) Influenza Type B (MICHELLE) Influenza A & B Note Imaging Radiologist's Impressions: Impressions Chest X-Ray 07/07/21 01:32 IMPRESSION: Patchy opacities are seen in both lungs which could be infectious or inflammatory. Head CT 07/07/21 01:37 IMPRESSION: No acute intracranial pathology. Chronic left parieto-occipital infarcts. Assessment and Plan (1) ELIZABETH (acute kidney injury): Status: Acute (2) Acidosis, lactic: Status: Acute (3) Pneumonia: Qualifiers: Laterality: bilateral Lung location: lower lobe of lung Pneumonia type: due to unspecified organism Qualified Code(s): J18.9 - Pneumonia, unspe cified organism Status: Acute (4) Encephalopathy: Status: Acute Plan 80-year-old male who recently discharged from the hospital after being treated for COVID-19 infection returns with increased confusion found to have pneumonia # encephalopathy - most likely secondary to acute pneumonia/toxic metabolic encephalopathy - will treat pneumonia as well as ELIZABETH - apparently baseline is A&O x3- per family - head CT negative - monitor mentation # hospital-acquired pneumonia - patchy infiltrates bilaterally - recently admitted to the hospital in May - broad-spectrum antibiotics - follow cultures # lactic acidosis - likely secondary to infection - no evidence of hypoxia or hypotension - IV fluids - follow lactic acid # ELIZABETH - most likely prerenal - will treat with IV fluids - follow BMP # hypertension - stable - continue antihypertensive DVT prophylaxis: Heparin subQ Quality Stroke Does the patient have a stroke diagnosis?: No VTE Prior VTE?: No VTE Risk Level:: Medical - moderate - high VTE Device Contraindication: Treatment Not Indicated VTE Drug Contraindication: N/A - Med Ordered
[2021-07-07 06:19] LABS: MANUAL DIFF FLAG NO
[2021-07-07 06:25] LABS: Basophils Percent Auto 0.4 % (0-2); Eosinophils Absolute Auto 0.2 X10*3/uL (0.0-0.4); Eosinophils Percent Auto 2.3 % (0-4); Hematocrit 32.8 % (42.0-52.0); Hemoglobin 10.2 g/dl (14.0-18.0); Imm Gran Abs Auto 0.02 X10*3/uL (0.00-0.03); Imm Gran Pct Auto 0.3 % (0.0-0.4); Lymphocytes Absolute Auto 0.8 X10*3/uL (1.2-4.9); Lymphocytes Percent Auto 10.2 % (20-40); Mean Corpuscular HGB Conc 31.1 g/dl (31.0-36.0); Mean Corpuscular Volume 90.1 fL (80.0-98.0); Monocytes Absolute Auto 0.4 X10*3/uL (0.1-1.2); Monocytes Percent Auto 5.4 % (2-11); Neutrophils Absolute Auto 6.5 x10*3/uL (2.0-8.3); Neutrophils Percent Auto 81.4 % (45-73); Platelet Count 257 X10*3/uL (160-400); Red Blood Count 3.64 X10*6/uL (4.60-5.80); Red Cell Distribution Width 15.6 % (11.0-16.0); White Blood Count 7.9 X10*3/uL (4.8-10.8)
[2021-07-07 06:27] LABS: ~Lactic Acid-LAB USE ONLY 1.5 mmol/L (0.5-2.0)
[2021-07-07 06:48] LABS: Anion Gap 15 (12-20); Blood Urea Nitrogen 34 mg/dL (9-16); Calcium 8.8 mg/dL (8.4-10.2); Carbon Dioxide 29 mmol/L (22-29); Chloride 105 mmol/L (96-108); Creatinine Clr Calc Pharmacy 34.1; Estimated Glomerular Filt Rate 32; Glucose Random 178 mg/dL (60-115); Potassium 4.5 mmol/L (3.3-5.1); Sodium 144 mmol/L (135-145)
[2021-07-07] MEDS: cefTRIAXone sodium 1 GM in 0.9 % Sodium Chloride 50 ML IV (07:06)
[2021-07-07] MEDS: 0.9 % Sodium Chloride Flush 3 ML SYRINGE IVFLUSH (07:06)
[2021-07-07] MEDS: Lactated Ringers 1,000 ML 100 ML IVCONT (07:36)
--- NOTE | 2021-07-07 07:51 | PHA.PROG ---
Admission Date/Time: July 07, 2021 05:22 Indication: Respiratory infection Weight in k.2 kg Adjusted body weight in Kg: [place] body weight in Kg: Obesity Dosing Indication % IBW: Serum Creatinine - Last 168 Hours 07/07/21 07/07/21 01:54 06:09 Creatinine 2.10 H 2.01 H Estimated CrCl and GFR - Last 168 Hours 07/07/21 07/07/21 01:54 06:09 Estim Creat Clear Calc 32.7 34.1 Estimated GFR 30 32 Vancomycin Loading Dose: 1250 mg Current Vancomycin Dosing Regimen: 750mg Q24H Vancomycin Monitoring using AUC goal of 400 - 600 range with trough as surrogate marker: AUC 411; TROUGH 13.9 Date and Time for next Vancomycin Level to be drawn: 07/08 @ 2200 Pharmacist Comments on Vancomycin Plan: Patient SCr is still elevated. Would consider 1g Q24H (10.7mg/kg) if SCR improves. Trough scheduled to be drawn after 2 doses to help assess safety Vancomycin dosing will take advantage of [employer] as a clinical decision support tool that uses Bayesian modeling to calculate individual patient's pharmacokinetic parameters and forecast the patient's drug concentration time course with the target goal AUC 24 range of 400 - 600 mg/L/hr.
--- NOTE | 2021-07-07 10:15 | PHA.MEDREC ---
MED REC COMPLETE, verified meds with family member contact, and pharmacy fill history Pharmacy Consult ? Medication Reconciliation Pharmacy has completed the medication reconciliation.
--- NOTE | 2021-07-07 11:47 | PM.EVENT ---
Event Note Date of Service: 07/07/21 Event Note: Pt examined/chart reviewed. No changes from admission
[2021-07-07] MEDS: ondansetron HCL 4 MG/2 ML VIAL IVPUSH (13:38)
--- NOTE | 2021-07-07 16:00 | PC.NURSE ---
PATIENT HAD A SMALL LOOSE BOWEL MOVEMENT ,CARE WAS GIVEN BEDDING WAS CHANGE ,PATIENT WAS REPOSITION .
[2021-07-07] MEDS: Heparin Sodium,Porcine 5,000 UNIT/ML VIAL 5000 UNIT SUBCUT (17:16)
--- NOTE | 2021-07-07 22:45 | PC.NURSE ---
Assumed care of pt Pt resting on stretcher wtih eyes closed Breathing even and unlabored NAD Pt medicated per AUG Pt tolerating abx Will continue to monitor
[2021-07-07] MEDS: vancomycin HCL 750 MG in 0.9 % Sodium Chloride 250 ML 265 MG IV (23:26)
[2021-07-08 02:00] VITALS: BP 149/51; PULSE 88; RESP 16; TEMP 37.1; O2SAT 98
[2021-07-08] MEDS: Lactated Ringers 1,000 ML 100 ML IVCONT ×2 (02:04→12:19)
[2021-07-08] MEDS: Heparin Sodium,Porcine 5,000 UNIT/ML VIAL 5000 UNIT SUBCUT ×2 (06:04→17:52)
[2021-07-08 06:20] LABS: MANUAL DIFF FLAG NO
[2021-07-08 06:27] LABS: Basophils Percent Auto 0.2 % (0-2); Eosinophils Absolute Auto 0.5 X10*3/uL (0.0-0.4); Eosinophils Percent Auto 6.5 % (0-4); Hematocrit 29.2 % (42.0-52.0); Hemoglobin 9.1 g/dl (14.0-18.0); Imm Gran Abs Auto 0.04 X10*3/uL (0.00-0.03); Imm Gran Pct Auto 0.5 % (0.0-0.4); Lymphocytes Absolute Auto 1.7 X10*3/uL (1.2-4.9); Mean Corpuscular HGB Conc 31.2 g/dl (31.0-36.0); Mean Corpuscular Hemoglobin 28.3 pg (27.0-33.0); Mean Platelet Volume 10.9 fL (9.4-12.4); Monocytes Absolute Auto 0.5 X10*3/uL (0.1-1.2); Monocytes Percent Auto 6.3 % (2-11); Neutrophils Absolute Auto 5.3 x10*3/uL (2.0-8.3); Neutrophils Percent Auto 65.5 % (45-73); Platelet Count 202 X10*3/uL (160-400); Red Blood Count 3.21 X10*6/uL (4.60-5.80); Red Cell Distribution Width 15.6 % (11.0-16.0); White Blood Count 8.1 X10*3/uL (4.8-10.8)
[2021-07-08 07:12] LABS: Alanine Aminotransferase 13 U/L (0-40); Albumin Level 2.6 g/dL (3.5-5.0); Alkaline Phosphatase 79 U/L (39-117); Anion Gap 13 (12-20); Aspartate Amino Transferase 15 U/L (5-37); Bilirubin Total 0.2 mg/dL (0.0-1.0); Blood Urea Nitrogen 26 mg/dL (9-16); Calcium 8.2 mg/dL (8.4-10.2); Carbon Dioxide 27 mmol/L (22-29); Chloride 105 mmol/L (96-108); Creatinine Clr Calc Pharmacy 50.5; Estimated Glomerular Filt Rate 50; Glucose Fasting 138 mg/dL (60-99); Potassium 3.8 mmol/L (3.3-5.1); Sodium 141 mmol/L (135-145); Total Protein 5.4 g/dL (6.5-8.0)
--- NOTE | 2021-07-08 11:24 | MHC.CM.PN ---
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 SHE REPORTS THE PT IS ALSO ACTIVE WITH [facility]. JOLYNN REPORTS SHE DOES NOT KNOW WHO THE PTS PCP IS BUT HAS THE INFORMATION BACK AT HER MOTHERS HOME SHE IS THE PTS HCP AND A COPY IS ON FILE JOLYNN REPORTS SHE FEELS THE PT MAY NEED STR AND WOULD LIKE HIM TO HAVE A PT EVAL PRIOR TO DC. SHE REPORTS HE DID RECEIVE THE COVID VACCINES, SHE DOES NOT KNOW THE INFORMATION BUT REPORTS SHE HAS THE PTS VAX CARD AT HER MOTHERS WELL. JOLYNN REQUESTS A REFERRAL BE MADE TO [facility] REFERRAL PLACED. IMM DELIVERED, COPY WILL BE EMAILED TO [email or web address], AND A COPY WAS SENT TO [facility] CURRENTLY DC PLAN IS TBD PENDING PT EVAL HOME [facility] VS STR [facility] IS PREFERRED FACILITY TRANSPORT TBD BY DISPO
[2021-07-08] MEDS: cefEPime HCl 2 GM in 0.9 % Sodium Chloride 50 ML IV ×2 (11:53→22:25)
[2021-07-08 12:51] VITALS: BP 137/81; PULSE 88; RESP 16; TEMP 36.9; O2SAT 96
--- NOTE | 2021-07-08 13:21 | PC.NURSE ---
pt alert, oriented x2, vss, denies pain. pt accidentally pulled out Iv, new iv placed in LAC 20g. meds given as documented, breakfast and lunch given. will continue to monitor.
--- NOTE | 2021-07-08 15:10 | P.PNIM_ITS ---
Subjective Subjective Date of Service: 07/08/21 Interval History: No acute issues overnight Physical Exam Verdana 4l Vital Signs: Verdana 4d Verdana 4d Vital Signs: Verdana 4d Verdana 4Bd Last Vital Signs Verdana 4d Senior Accounting Analyst New 4d Senior Accounting Analyst New 4d Temp 98.5 F 07/08/21 12:51 Senior Accounting Analyst New 4d Pulse 88 07/08/21 12:51 Senior Accounting Analyst New 4d Resp 16 07/08/21 12:51 BP 137/81 07/08/21 12:51 Pulse Ox 96 07/08/21 12:51 BMI result Body Mass Index 27.8 Const: Other: No acute distress Resp: Other: Scant bibasilar crackles Cardio: Other: -S4 +S1/S2 -S3 M/R/G GI: Other: Soft NABS x 4 quads Extrem: Other: No edema bilat Objective Data Active Medications Acetaminophen (Acetaminophen 325 Mg Tablet) 650 mg PO Q6H PRN PRN Reason: Pain, Mild (Pain Scale 1-3) Docusate Sodium (Docusate Sodium 100 Mg Capsule) 100 mg PO DAILY PRN PRN Reason: Constipation Heparin Sodium (Porcine) (Heparin Sodium,Porcine 5,000 Unit/Ml Vial) 5,000 unit SUBCUT Q12H [facility] Last Admin: 07/08/21 06:04 Dose: 5,000 unit Documented by: NEFTALI Lactated Ringer's (Lr) 1,000 mls @ 100 mls/hr IVCONT .Q10H [facility] Last Admin: 07/08/21 12:19 Dose: 100 mls/hr Documented by: NAVDEEP Vancomycin HCl 750 mg/ Sodium (Chloride) 265 mls @ 265 mls/hr IV Q24H [facility] Last Infusion: 07/08/21 00:46 Dose: 0 mls/hr Documented by: NEFTALI Cefepime HCl 2 gm/ Sodium (Chloride) 50 mls @ 100 mls/hr IV Q12H [facility] Last Infusion: 07/08/21 12:30 Dose: 0 mls/hr Documented by: NAVDEEP Ondansetron HCl (Ondansetron Hcl 4 Mg/2 Ml Vial) 4 mg IVPUSH Q8H PRN PRN Reason: Nausea and Vomiting Last Admin: 07/07/21 13:38 Dose: 4 mg Documented by: PAM Pharmacy Consult (Consult Rx Vancomycin Dosing) 1 each MISCELLANE DAILY PRN PRN Reason: Consult order Sodium Chloride (0.9 % Sodium Chloride Flush 3 Ml Syringe) 3 ml IVFLUSH QSHIFT [facility] Last Admin: 07/08/21 08:09 Dose: Not Given Documented by: NAVDEEP Non-Admin Reason: IV Running Labs CBC & Chem 7: 07/08/21 05:51 07/08/21 05:51 Labs: Laboratory Results - last 24 hr 07/08/21 07/08/21 05:51 05:51 MCV 91.0 MCH 28.3 MCHC 31.2 RDW 15.6 Plt Count 202 MPV 10.9 Immature Gran % (Auto) 0.5 H Neut % (Auto) 65.5 Lymph % (Auto) 21.0 [place] % (Auto) 6.3 Eos % (Auto) 6.5 H Baso % (Auto) 0.2 Lymph # (Auto) 1.7 [place] # (Auto) 0.5 Eos # (Auto) 0.5 H Baso # (Auto) 0.0 Abs Immat Gran (auto) 0.04 H Absolute Neuts (auto) 5.3 Absolute Nucleated RBC 0.000 Nucleated RBC % (auto) 0.0 Anion Gap 13 Estim Creat Clear Calc 50.5 Estimated GFR 50 Fasting Glucose 138 H Calcium 8.2 L D Total Bilirubin 0.2 AST 15 ALT 13 Alkaline Phosphatase 79 D Total Protein 5.4 L D Albumin 2.6 L D Microbiology Microbiology Results: Microbiology 07/07/21 01:54 Blood Culture - Preliminary Blood - Venous No growth after 24 hours. 07/07/21 01:54 Blood Culture - Preliminary Blood - Venous No growth after 24 hours. Assessment and Plan (1) HAP (hospital-acquired pneumonia): Status: Acute (2) Encephalopathy: Status: Acute Plan 80-year-old male who recently discharged from the hospital after being treated for COVID-19 infection returns with increased confusion found to have pneumonia 1. Hospital-acquired pneumonia -continue Vanco/Cefepime (2) -follow culture 2. ELIZABETH - Cr returned to baseline - follow renals/divalents 3.Hypertension - stable - continue antihypertensive DVT prophylaxis: Heparin subQ Quality Stroke Does the patient have a stroke diagnosis?: No VTE Prior VTE?: No VTE Risk Level:: Medical - moderate - high VTE Device Contraindication: Treatment Not Indicated VTE Drug Contraindication: N/A - Med Ordered
[2021-07-08 18:05] VITALS: PULSE 74; RESP 16; TEMP 36.2; O2SAT 96
--- NOTE | 2021-07-08 18:30 | PC.NURSE ---
pt sleeping on and off, fluid hung as documented, no complaints.
[2021-07-08 21:00] VITALS: PULSE 76; RESP 16; TEMP 36.4; O2SAT 94
[2021-07-08 21:31] LABS: Vancomycin Trough 7.1 mcg/mL (10.0-20.0)
--- NOTE | 2021-07-08 21:38 | PHA.PROG ---
Admission Date/Time: July 07, 2021 05:22 Indication: Weight in k.2 kg Adjusted body weight in Kg: [place] body weight in Kg: Obesity Dosing Indication % IBW: Serum Creatinine - Last 168 Hours 07/07/21 07/07/21 07/08/21 01:54 06:09 05:51 Creatinine 2.10 H 2.01 H 1.36 Estimated CrCl and GFR - Last 168 Hours 07/07/21 07/07/21 07/08/21 01:54 06:09 05:51 Estim Creat Clear Calc 32.7 34.1 50.5 Estimated GFR 30 32 50 Vancomycin Loading Dose: Current Vancomycin Dosing Regimen: Vancomycin Monitoring using AUC goal of 400 - 600 range with trough as surrogate marker: Date and Time for next Vancomycin Level to be drawn: Vancomycin Trough 7.1 mcg/mL (10.0-20.0) L 07/08/21 21:00 Pharmacist Comments on Vancomycin Plan: increase vanco to 1250 q24h Vancomycin dosing will take advantage of [employer] as a clinical decision support tool that uses Bayesian modeling to calculate individual patient's pharmacokinetic parameters and forecast the patient's drug concentration time course with the target goal AUC 24 range of 400 - 600 mg/L/hr.
[2021-07-08] MEDS: vancomycin HCL 1,250 MG in 0.9 % Sodium Chloride 250 ML 166.67 MG IV (23:00)
[2021-07-09 01:54] VITALS: BP 140/88; PULSE 62; RESP 14; TEMP 36.5; O2SAT 93
[2021-07-09 05:46] LABS: MANUAL DIFF FLAG NO
[2021-07-09 05:51] LABS: Basophils Percent Auto 0.2 % (0-2); Eosinophils Percent Auto 11.9 % (0-4); Hematocrit 30.2 % (42.0-52.0); Hemoglobin 9.4 g/dl (14.0-18.0); Imm Gran Abs Auto 0.03 X10*3/uL (0.00-0.03); Imm Gran Pct Auto 0.3 % (0.0-0.4); Lymphocytes Absolute Auto 2.1 X10*3/uL (1.2-4.9); Lymphocytes Percent Auto 23.6 % (20-40); Mean Corpuscular HGB Conc 31.1 g/dl (31.0-36.0); Mean Corpuscular Hemoglobin 27.8 pg (27.0-33.0); Mean Corpuscular Volume 89.3 fL (80.0-98.0); Mean Platelet Volume 11.1 fL (9.4-12.4); Monocytes Absolute Auto 0.8 X10*3/uL (0.1-1.2); Monocytes Percent Auto 8.6 % (2-11); Neutrophils Absolute Auto 4.8 x10*3/uL (2.0-8.3); Neutrophils Percent Auto 55.4 % (45-73); Platelet Count 203 X10*3/uL (160-400); Red Blood Count 3.38 X10*6/uL (4.60-5.80); Red Cell Distribution Width 15.2 % (11.0-16.0); White Blood Count 8.7 X10*3/uL (4.8-10.8)
[2021-07-09 06:06] LABS: Alanine Aminotransferase 13 U/L (0-40); Albumin Level 2.7 g/dL (3.5-5.0); Alkaline Phosphatase 82 U/L (39-117); Anion Gap 10 (12-20); Aspartate Amino Transferase 21 U/L (5-37); Bilirubin Total 0.3 mg/dL (0.0-1.0); Blood Urea Nitrogen 21 mg/dL (9-16); Calcium 8.6 mg/dL (8.4-10.2); Carbon Dioxide 30 mmol/L (22-29); Chloride 104 mmol/L (96-108); Creatinine Clr Calc Pharmacy 58.7; Estimated Glomerular Filt Rate 60; Glucose Fasting 128 mg/dL (60-99); Potassium 3.9 mmol/L (3.3-5.1); Sodium 140 mmol/L (135-145); Total Protein 5.6 g/dL (6.5-8.0)
[2021-07-09 06:17] VITALS: BP 156/71; PULSE 74; RESP 16; TEMP 36.8; O2SAT 95
[2021-07-09] MEDS: Heparin Sodium,Porcine 5,000 UNIT/ML VIAL 5000 UNIT SUBCUT (06:38)
[2021-07-09] MEDS: Lactated Ringers 1,000 ML 100 ML IVCONT ×2 (06:43→08:45)
--- NOTE | 2021-07-09 07:23 | PHA.PROG ---
Admission Date/Time: July 07, 2021 05:22 Indication: Resp. Infection Weight in k.2 kg Adjusted body weight in K.84 kg [place] body weight in K.6 kg Obesity Dosing Indication % IBW: 120% Serum Creatinine - Last 168 Hours 07/07/21 07/07/21 07/08/21 01:54 06:09 05:51 Creatinine 2.10 H 2.01 H 1.36 07/09/21 05:26 Creatinine 1.17 Estimated CrCl and GFR - Last 168 Hours 07/07/21 07/07/21 07/08/21 01:54 06:09 05:51 Estim Creat Clear Calc 32.7 34.1 50.5 Estimated GFR 30 32 50 07/09/21 05:26 Estim Creat Clear Calc 58.7 Estimated GFR 60 Vancomycin Loading Dose: 1250 mg (13 mg/kg) given 07/07 Current Vancomycin Dosing Regimen: 1250 mg Q24H Date and Time for next Vancomycin Level to be drawn: 07/10 @ 2100 Vancomycin Trough 7.1 mcg/mL (10.0-20.0) L 07/08/21 21:00 Pharmacist Comments on Vancomycin Plan: Patient's renal function is improving rapidly. Dose was adjust yesterday. Patient has one more dose tonight then a trough tomorrow. With the improvement in renal function, patient is predicted to still be in therapeutic levels. Expected Auc 414 with a trough of 12.7. Will adjust dose tomorrow when level comes back for more accurate adjustments Riri Camilo PharmD Vancomycin dosing will take advantage of [employer] as a clinical decision support tool that uses Bayesian modeling to calculate individual patient's pharmacokinetic parameters and forecast the patient's drug concentration time course with the target goal AUC 24 range of 400 - 600 mg/L/hr.
[2021-07-09 10:48] VITALS: BP 151/59; PULSE 59; RESP 18; TEMP 36.8; O2SAT 96
--- NOTE | 2021-07-09 10:56 | PC.NURSE ---
Pt Alert, oriented to person and place, asking when he can leave. Confused but redirectable. Concerned for BLE edema, +1 pitting edema noted at this time, MD made aware. Pt uses urinal with no assistance, fluids running as per MAR orders. Call sampson within reach, bed alarm on, will continue to monitor.
[2021-07-09] MEDS: cefEPime HCl 2 GM in 0.9 % Sodium Chloride 50 ML IV (11:34)
--- NOTE | 2021-07-09 12:52 | MHC.CM.PN ---
Addendum entered by Yusra Barroso 07/09/21 13:07: FAMILY UNABLE TO PROVIDE NAME OF VISITING NURSE AGENCY. CM CALLED DR SINGLETON'S OFFICE ([phone]) AND WAS INFORMED PT IS ACTIVE WITH [facility] ([phone]) CM CALLED [facility] TO OBTAIN A FAX NUMBER FOR PTS DC SUMMARY AND F2F. DOCUMENTS FAXED TO [phone]. 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 CM INFORMED HER THIS WOULD BE AN OUTPATIENT PROCEDURE AND COULD NOT BE DONE WHILE HE IS INPATIENT. JOLYNN ASKED TO SPEAK TO PTS MD PRIOR TO DC. REQUEST FORWARDED AND MD CONTACTED HER CM CALLED HER BACK TO [id number] HER SHE SHOULD PICK PT UP AROUND 1400 HOURS HOWEVER SHE DID NOT ANSWER. VM MESSAGE LEFT WITH INFORMATION
[2021-07-09 12:58] LABS: Glucose, Whole Blood 184 mg/dL (60-115)
--- NOTE | 2021-07-09 13:48 | P.DS_ITS ---
DS: Providers Provider Date of Service: 07/09/21 Date of admission: 07/07/21 05:22 Date of discharge: 07/09/21 Primary care physician: Unknown Physician DS: Diagnosis Discharge Diagnosis (1) HAP (hospital-acquired pneumonia): Status: Acute (2) Encephalopathy: Status: Acute DS: Summary Hospital Course Hospital Course: This is an 80-year-old male with past medical history of adenocarcinoma of the right lung, COPD, dementia, diabetes, history of CVA, hyperlipidemia, hypertension presents to the hospital with increased confusion.? History is obtained from family as patient is confused, oriented to self only, unable to give much history.? According to the family patient has become more and more confused over the last few days.? He has urinated on the floor, not directable, and his baseline is usu ally alert oriented x3. Hospital Course Admitted..placed on Cefepime/Vanco. Over the next 48 hrs remarkable improvement. This am, awake/pleasant and oriented. Seen by PT...OK to D/C home with home PT. 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 4d Marine Engine Mechanic New 4d Temp 98.2 F 07/09/21 10:48 Marine Engine Mechanic New 4d Pulse 59 07/09/21 10:48 Marine Engine Mechanic New 4d Resp 18 07/09/21 10:48 BP 151/59 H 07/09/21 10:48 Pulse Ox 96 07/09/21 10:48 BMI result Body Mass Index 27.8 Const: Other: No acute distress Resp: Other: Scant bibasilar crackles(improved) Cardio: Other: -S4 +S1/S2 -S4 M/R/G Extrem: Other: no edema DS: Data Data Completed and Pending Labs on day of discharge: Laboratory Results - last 24 hr 07/08/21 07/09/21 07/09/21 21:00 05:26 05:26 WBC 8.7 RBC 3.38 L Hgb 9.4 L Hct 30.2 L MCV 89.3 MCH 27.8 MCHC 31.1 RDW 15.2 Plt Count 203 MPV 11.1 Immature Gran % (Auto) 0.3 Neut % (Auto) 55.4 Lymph % (Auto) 23.6 [place] % (Auto) 8.6 Eos % (Auto) 11.9 H Baso % (Auto) 0.2 Lymph # (Auto) 2.1 [place] # (Auto) 0.8 Eos # (Auto) 1.0 H Baso # (Auto) 0.0 Abs Immat Gran (auto) 0.03 Absolute Neuts (auto) 4.8 Absolute Nucleated RBC 0.000 Nucleated RBC % (auto) 0.0 Sodium 140 Potassium 3.9 Chloride 104 Carbon Dioxide 30 H Anion Gap 10 L BUN 21 H Creatinine 1.17 Estim Creat Clear Calc 58.7 Estimated GFR 60 POC Glucose Fasting Glucose 128 H Calcium 8.6 Total Bilirubin 0.3 AST 21 ALT 13 Alkaline Phosphatase 82 Total Protein 5.6 L Albumin 2.7 L Vancomycin Trough 7.1 L 07/09/21 12:46 WBC RBC Hgb Hct MCV MCH MCHC RDW Plt Count MPV Immature Gran % (Auto) Neut % (Auto) Lymph % (Auto) [place] % (Auto) Eos % (Auto) Baso % (Auto) Lymph # (Auto) [place] # (Auto) Eos # (Auto) Baso # (Auto) Abs Immat Gran (auto) Absolute Neuts (auto) Absolute Nucleated RBC Nucleated RBC % (auto) Sodium Potassium Chloride Carbon Dioxide Anion Gap BUN Creatinine Estim Creat Clear Calc Estimated GFR POC Glucose 184 H Fasting Glucose Calcium Total Bilirubin AST ALT Alkaline Phosphatase Total Protein Albumin Vancomycin Trough Preliminary micro results at discharge 07/07/21 01:54 Blood Culture - Preliminary Blood - Venous No growth after 48 hours. 07/07/21 01:54 Blood Culture - Preliminary Blood - Venous No growth after 48 hours. Discharge Plan Discharge Patient Disposition: Home Health Service Discharge Diagnosis: Pneumonia Referrals: Physician,Unknown J [Primary Care Provider] - 1 Week Discharge Medications: New doxycycline hyclate 100 mg capsule 100 mg PO BID Qty: 20 0RF Continued furosemide 40 mg tablet 40 mg PO QAM 0RF atorvastatin 80 mg tablet 80 mg PO BEDTIME 0RF aspirin 81 mg tablet,delayed release (DR/EC) 81 mg PO QAM 0RF amlodipine 10 mg tablet 10 mg PO BEDTIME 0RF omeprazole 20 mg capsule,delayed release(DR/EC) 20 mg PO QAM 0RF cholecalciferol (vitamin D3) 25 mcg (1,000 unit) tablet 25 mcg PO QAM 0RF Jardiance 10 mg Tablet 10 mg PO QAM 0RF Trulicity 0.75 mg/0.5 mL Pen Injector 0.75 mg SUBCUT QWEEK 0RF hydralazine 50 mg Tablet 50 mg PO BID 0RF losartan 50 mg Tablet 100 mg PO DAILY 0RF Rx Instructions: THIS WAS JUST RECENTLY INCREASED TO 100 MG metoprolol succinate 50 mg Tablet Extended Release 24 Hr 50 mg PO DAILY 0RF insulin asp prt-insulin aspart [Novolog Mix 70-30FlexPen U-100] 100 unit/mL (70-30) Insulin Pen 48 unit SUBCUT QAM 0RF insulin asp prt-insulin aspart [Novolog Mix 70-30FlexPen U-100] 100 unit/mL (70-30) Insulin Pen 37 unit SUBCUT BEDTIME 0RF dexamethasone 6 mg tablet 6 mg PO DAILY Qty: 3 0RF Discharge Orders: Discharge Order (Routine); Ordered 07/09/21 Ordered By: Feliberto Bills Diet: advance to usual diet Activity on Discharge: As tolerated Stand Alone Forms: Patient Portal Discharge page Care Plan Goals: Home with services. Complete course of Doxycycline 100mg twice daily x 10 days Health Concerns: Complete therapies Plan of Treatment: Oral antibiotics. Follow up with PCP 2 weeks Assessment: Improved
--- NOTE | 2021-07-09 14:11 | PC.NURSE ---
Called [facility], phone number busy signal only. Called [facility], left voicemail.
[2021-07-09 14:30] VITALS: BP 164/64; PULSE 94; RESP 21; TEMP 37.1; O2SAT 96
--- NOTE | 2021-07-09 17:54 | PC.NURSE ---
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 IV has been removed, Dr. Zamorano aware of pt's inability to be DC'd at this time. Will continue to monitor.
== END 2021-07-09 19:53 | disposition home health service (06) | DRG 193 ==
LOC: HO.ED 02:38 → HO.EDOVER 05:31 → HO.S3 07-09 19:14
PROVIDERS: Admitting Provider Internal Medicine; Emergency Provider Emergency Medicine; PCP Internal Medicine Geriatric Medicine; Visit Provider Hospitalist
DX: J18.9 Pneumonia, unspecified organism (principal); G92.8 Other toxic encephalopathy; N17.9 Acute kidney failure, unspecified; F03.90 Unspecified dementia, unspecified severity, without behavioral disturbance, psychotic disturbance, mood disturbance, and anxiety; E11.9 Type 2 diabetes mellitus without complications; Z20.822 Contact with and (suspected) exposure to COVID-19; Z85.118 Personal history of other malignant neoplasm of bronchus and lung; Z87.891 Personal history of nicotine dependence; Z88.0 Allergy status to penicillin; Z79.4 Long term (current) use of insulin; Z79.82 Long term (current) use of aspirin; Z79.899 Other long term (current) drug therapy
CPT/HCPCS: 36415; 70450; 71045; 80048; 80053; 80076; 80202; 81001; 82077; 82803; 82947; 83605; 83735; 84443; 85025; 87040; 87502; 87635; 93005; 96361; 96365; 96375; 97162; 99285; J0456; J0692; J0696; J2405; J3370

== ENCOUNTER 2021-08-18 09:05 | Inpatient (IN) | payer MEDICARE, MEDICAID, SELFPAY ==
--- NOTE | ~2021-08-18 | US_ITS ---
EXAMINATION: US VENOUS ULTRASOUND WITH DOPPLER LOWER EXTREMITY, LEFT CLINICAL INFORMATION: Left lower extremity swelling and rash. COMPARISON: Left lower extremity venous ultrasonography 04/29/2021. TECHNIQUE: Ultrasound of the deep veins is performed from the hip to the calf with compression sonography and color and pulse Doppler assessment. Spectral analysis with color-flow imaging is performed. FINDINGS: There is normal venous compression and respiratory variation and augmented flow. The visualized common femoral vein, superficial femoral vein, profunda femoral vein, popliteal vein, and the trifurcation region shows no evidence of deep venous thrombosis. There is no significant popliteal fossa cyst. Mild segmental narrowing of the middle and distal segments of the left femoral vein are noted no mural thrombus is identified in this region. Findings may represent normal anatomic variation. If the patient's symptoms persist, followup ultrasound in 5 days 7 days might be of value to exclude proximal propagation from a non-visualized calf vein. US/US venous duplex LE LT IMPRESSION: No DVT demonstrated in the left lower extremity.
--- NOTE | ~2021-08-18 | XR_ITS ---
EXAMINATION: XR CHEST CLINICAL INFORMATION: Lower extremity swelling. COMPARISON: 07/07/2021 TECHNIQUE: Frontal view of the chest was obtained. FINDINGS: Rotated positioning. Cardiomediastinal silhouette is similar, line for difference in technique. Aortic arch calcification. Slightly low lung volumes. Mild patchy bibasilar opacities. Mild bronchial thickening in the right lower lobe. No effusion. No edema or pneumothorax. XR/XR chest 1V IMPRESSION: Mild bibasilar patchy opacities may reflect infectious inflammatory process.
--- NOTE | ~2021-08-18 | CT_ITS ---
EXAMINATION: CT ABDOMEN AND PELVIS WITHOUT CONTRAST CLINICAL INFORMATION: r/o obstruction. ELIZABETH . COMPARISON: 01/18/2021. TECHNIQUE: Multidetector volumetric imaging was performed from the superior aspect of the liver through the pubic symphysis without contrast per renal stone protocol. Sagittal and coronal reformatted images were obtained on the technologist workstation. This CT examination was performed using dose optimization techniques as appropriate, variously including the following: *Automated exposure control *Adjustment of mA and/or kV according to patient size (this includes techniques or standardized protocols for targeted exams where dose is matched to indication/reason for exam; i.e. extremities or head) *Use of iterative reconstruction technique DLP: 531 mGy-cm. FINDINGS: LUNG BASES: Minimal dependent basilar atelectasis LIVER, GALLBLADDER, BILIARY TREE: The non-contrast liver is normal in size, shape, and attenuation. No focal hepatic lesion or biliary ductal dilatation is present. The gallbladder is unremarkable with no evidence of radiopaque gallstones, gallbladder wall thickening, or obvious pericholecystic inflammatory changes. PANCREAS: Unremarkable. SPLEEN: Unremarkable. ADRENAL GLANDS: Unremarkable. KIDNEYS AND URETERS: The kidneys are normal in size, shape, and attenuation. Vascular calcification bilaterally. No hydronephrosis, hydroureter, or intrarenal calculi seen. No perinephric stranding. BLADDER: Unremarkable. GASTROINTESTINAL TRACT: Few scattered colonic diverticula are noted. No evidence for diverticulitis. Normal-appearing appendix in the right lower quadrant. Small bowel unremarkable ABDOMINAL WALL: Small bilateral fat-containing inguinal hernias LYMPHOVASCULAR STRUCTURES: Vascular calcification within the aorta iliac system. PELVIC VISCERA: Unremarkable. OSSEUS STRUCTURES: Multilevel degenerative changes noted in the spine CT/CT abdomen pelvis wo con IMPRESSION: Chronic appearing changes but no acute intra-abdominal process.
[2021-08-18 09:21] VITALS: BP 151/41; PULSE 62; RESP 16; TEMP 36.4; O2SAT 99; BMI 26.6
[2021-08-18 10:45] LABS: MANUAL DIFF FLAG NO
[2021-08-18 10:48] LABS: Basophils Absolute Auto 0.1 X10*3/uL (0.0-0.2); Basophils Percent Auto 0.7 % (0-2); Eosinophils Absolute Auto 0.6 X10*3/uL (0.0-0.4); Hematocrit 31.3 % (42.0-52.0); Hemoglobin 9.6 g/dl (14.0-18.0); Imm Gran Abs Auto 0.03 X10*3/uL (0.00-0.03); Imm Gran Pct Auto 0.3 % (0.0-0.4); Lymphocytes Absolute Auto 2.8 X10*3/uL (1.2-4.9); Lymphocytes Percent Auto 30.4 % (20-40); Mean Corpuscular HGB Conc 30.7 g/dl (31.0-36.0); Mean Corpuscular Hemoglobin 26.7 pg (27.0-33.0); Mean Corpuscular Volume 87.2 fL (80.0-98.0); Mean Platelet Volume 10.7 fL (9.4-12.4); Monocytes Absolute Auto 0.7 X10*3/uL (0.1-1.2); Neutrophils Percent Auto 54.6 % (45-73); Platelet Count 253 X10*3/uL (160-400); Red Blood Count 3.59 X10*6/uL (4.60-5.80); Red Cell Distribution Width 15.5 % (11.0-16.0); White Blood Count 9.2 X10*3/uL (4.8-10.8)
--- NOTE | 2021-08-18 10:54 | ED_ITS ---
HPI - Skin/Abscess/Foreign Bdy General Chief complaint: Skin/Abscess/Foreign Body Stated complaint: Rash on legs Time Seen by Provider: 08/18/21 09:25 Source: patient Mode of arrival: ambulatory History of Present Illness HPI narrative: 80-year-old male with a past medical history of COPD, dementia, DM, adenocarcinoma of the lung, CVA, HTN, HLD, presenting to the ED complaining bilateral lower extremity erythema/pruritic rash x3 days. Reports LLE more swollen than right. Denies fever, chills, SOB, new exposures including lotion/detergents, known insect bites MD complaint: rash Onset (ago): day(s) Related Data Home Medications Medication Instructions Recorded Confirmed amlodipine 10 mg tablet 10 mg PO BEDTIME 03/07/21 08/18/21 aspirin 81 mg tablet,delayed 81 mg PO QAM 03/07/21 08/18/21 release atorvastatin 80 mg tablet 80 mg PO BEDTIME 03/07/21 08/18/21 cholecalciferol (vitamin D3) 25 25 mcg PO QAM 03/07/21 08/18/21 mcg (1,000 unit) tablet furosemide 40 mg tablet 40 mg PO QAM 03/07/21 08/18/21 omeprazole 20 mg capsule,delayed 20 mg PO QAM 03/07/21 08/18/21 release dulaglutide 0.75 mg/0.5 mL 0.75 mg SUBCUT QWEEK 07/07/21 08/18/21 subcutaneous pen injector (Trulicity) empagliflozin 10 mg tablet 10 mg PO QAM 07/07/21 08/18/21 (Jardiance) hydralazine 50 mg tablet 50 mg PO BID 07/07/21 08/18/21 insulin aspar prot-insulin aspart 37 unit SUBCUT BEDTIME 07/07/21 08/18/21 100 unit/mL (70-30) subcutaneous pen (Novolog Mix 70-30FlexPen U-100) insulin aspar prot-insulin aspart 48 unit SUBCUT QAM 07/07/21 08/18/21 100 unit/mL (70-30) subcutaneous pen (Novolog Mix 70-30FlexPen U-100) losartan 50 mg tablet 100 mg PO DAILY 07/07/21 08/18/21 metoprolol succinate 50 mg 50 mg PO DAILY 07/07/21 08/18/21 tablet,extended release 24 hr Allergies Allergy/AdvReac Type Severity Reaction Status Date / Time Penicillins [PENICILLINS] Allergy Intermediate RASH Verified 04/06/21 10:59 Review of Systems Review of Systems: Constitutional: No Fever, No Chills, No Fatigue, No Malaise ENT/Mouth: No Ear Pain, No sore throat, No Rhinorrhea Eyes: No Eye Pain, No Swelling, No Redness Cardiovascular: No Chest Pain, No SOB, No Dyspnea on Exertion, No Orthopnea, + Edema Respiratory: No Cough, No Sputum, No Dyspnea Gastrointestinal: No Nausea, No Vomiting, No Diarrhea, No Abdominal pain Genitourinary: No Dysuria, No Urinary Frequency, No Urinary Incontinence, No Flank Pain Musculoskeletal: No joint pain, No Myalgias, No Joint Swelling Skin: No Skin Lesions, + rash Neuro: No Weakness, No Numbness, No Paresthesias, No Dizziness, No Headache Yes all other systems are reviewed and are negative [facility] Past Medical History Attestation statement: The following information was validated with the patient. Medical History Adenocarcinoma of right lung (~2020) COPD (chronic obstructive pulmonary disease) Dementia Diabetes Former smoker, stopped smoking in distant past History of CVA (cerebrovascular accident) (~07/2020) HTN (hypertension) Hyperlipidemia Pneumonia Surgical History History of lung biopsy (~10/2020) Social History Social History Household Members: Spouse Household Members Other:: step-son spends the night frequently Housing: Apartment Do you presently have visiting nurse or other home services: Yes Alcohol intake: never Patient Tobacco Use Status: Former Tobacco user Advance Directives: Yes Advance Directives on File: Yes Advance Directives Date on File: 05/24/21 service: No Current occupational status: retired and disabled Physical Exam Vital Signs: Vital Signs: Last Vital Signs Temp 97.5 F 08/18/21 09:21 Pulse 62 08/18/21 09:21 Resp 16 08/18/21 09:21 BP 151/41 H 08/18/21 09:21 Pulse Ox 99 08/18/21 09:21 BMI result Body Mass Index 26.6 Const: General: cooperative, healthy appearing, no acute distress, alert and awake Limitations: no limitations HENMT: Head: Yes normal to inspection Ears: hearing grossly normal bilater ally General nose exam: Normal external nose present Face and sinus: Yes normal facial exam Eyes: General: appearance normal, both eyes and all related structures EOM: EOMs intact bilaterally Neck: Neck: Yes normal visual inspection and Yes no meningeal signs Resp: Effort & Inspection: normal respiratory effort and no respiratory distress Auscultation: clear to auscultation bilaterally Cardio: Rate: regular rate Heart sounds: S1 normal heart sound present and S2 normal heart sound present Peripheral pulses: dorsalis pedis present GI: Inspection: Yes normal to inspection Palpation (GI): Soft to palpation, nontender and no guarding Skin: Wounds: no wounds Neuro: General: no meningeal signs Gait exam (Neuro): Normal gait present Extrem: Other: +bilateral LE with erythema and slight warmth to touch > LLE. +overlying dry skin with excoriations. No streaking, no drainage, no fluctuance/induration. +mild bilateral LE pitting edema > Left Course Course Course Narrative: Spoke to patient's son Flex who reports patient mental status is at baseline. States patient has decreased appetite, very picky are home with decreased p.o. intake. States interested in father getting STR or LTC -1200--no leukocytosis. H&H at patient's baseline. Potassium mildly elevated to 5.4, will obtain EKG. + ELIZABETH with BUN of 58, creatinine of 2.91 > ?Likely from dehydration. BNP 278 > will obtain UA, lactic/blood cultures ans anticipated admission -1246--UA not infected. US venous duplex LE LT IMPRESSION: No DVT demonstrated in the left lower extremity. XR chest 1V IMPRESSION: Mild bibasilar patchy opacities may reflect infectious inflammatory process. > appears similar to prior CXR on 07/07/2021. Patient denies, fever MDM - Skin/Abscess/Foreign Bdy MDM Narrative Medical decision making narrative: 80-year-old male with a past medical history of COPD, dementia, DM, adenoca rcinoma of the lung, CVA, HTN, HLD, presenting to the ED complaining bilateral lower extremity erythema/pruritic rash x3 days. On exam vital signs stable, NAD, well-appearing, physical exam as above, concern for early cellulitis vs dermatitis with superinfection vs DVT vs CHF. Low suspicion for allergic reaction Plan: Labs, venous duplex ultrasound Differential Diagnosis Differential diagnosis: Likely cellulitis, eczema and contact dermatitis Medical Records Attestation: I reviewed the patient's medical records. Lab Data Attestation: I reviewed the patient's lab results. Result diagrams: 08/18/21 10:41 08/18/21 10:41 Labs: Lab Results 08/18/21 08/18/21 08/18/21 Range/Units 10:41 10:41 10:41 WBC 9.2 (4.8-10.8) X10*3/uL RBC 3.59 L (4.60-5.80) X10*6/uL Hgb 9.6 L (14.0-18.0) g/dl Hct 31.3 L (42.0-52.0) % MCV 87.2 (80.0-98.0) fL MCH 26.7 L (27.0-33.0) pg MCHC 30.7 L (31.0-36.0) g/dl RDW 15.5 (11.0-16.0) % Plt Count 253 (160-400) X10*3/uL MPV 10.7 (9.4-12.4) fL Immature Gran % (Auto) 0.3 (0.0-0.4) % Neut % (Auto) 54.6 (45-73) % Lymph % (Auto) 30.4 (20-40) % [place] % (Auto) 8.0 (2-11) % Eos % (Auto) 6.0 H (0-4) % Baso % (Auto) 0.7 (0-2) % Lymph # (Auto) 2.8 (1.2-4.9) X10*3/uL [place] # (Auto) 0.7 (0.1-1.2) X10*3/uL Eos # (Auto) 0.6 H (0.0-0.4) X10*3/uL Baso # (Auto) 0.1 (0.0-0.2) X10*3/uL Abs Immat Gran (auto) 0.03 (0.00-0.03) X10*3/uL Absolute Neuts (auto) 5.0 (2.0-8.3) x10*3/uL Absolute Nucleated RBC 0.000 (0.0-0.012) X10*3/uL Nucleated RBC % (auto) 0.0 (0.0-0.2) /100WBC Sodium 137 (135-145) mmol/L Potassium 5.4 H D (3.3-5.1) mmol/L Chloride 103 (96-108) mmol/L Carbon Dioxide 28 (22-29) mmol/L Anion Gap 11 L (12-20) BUN 58 H D (9-16) mg/dL Creatinine 2.91 H (0.5-1.4) mg/dL Estim Creat Clear Calc 17.9 Estimated GFR 21 Random Glucose 219 H (60-115) mg/dL Lactic Acid (0.5-2.0) mmol/L Calcium 9.5 D (8.4-10.2) mg/dL Total Bilirubin 0.7 (0.0-1.0) mg/dL Direct Bilirubin 0.2 (0.0-0.5) mg/dL AST 14 (5-37) U/L ALT 15 (0-40) U/L Alkaline Phosphatase 99 D (39-117) U/L B-Natriuretic Peptide 278 H (<100) pg/mL Total Protein 7.0 D (6.5-8.0) g/dL Albumin 3.6 D (3.5-5.0) g/dL Urine Color Urine Appearance Urine pH (5.0-8.0) Ur Specific [place] (1.005-1.025) Urine Protein (NEG-TRACE) MG/DL Urine Glucose (UA) (NEG) MG/DL Urine Ketones (NEG) MG/DL Urine Blood (NEG) Urine Nitrite (NEG) Ur Leukocyte Esterase (NEG) Urine RBC (0) /HPF Urine WBC (0-4) /HPF Ur Squamous Epith Cells /LPF Urine Bacteria /LPF COVID-19 (SHANA) (Negative) COVID-19 Clin Com 08/18/21 08/18/21 08/18/21 Range/Units 11:21 11:21 11:50 WBC (4.8-10.8) X10*3/uL RBC (4.60-5.80) X10*6/uL Hgb (14.0-18.0) g/dl Hct (42.0-52.0) % MCV (80.0-98.0) fL MCH (27.0-33.0) pg MCHC (31.0-36.0) g/dl RDW (11.0-16.0) % Plt Count (160-400) X10*3/uL MPV (9.4-12.4) fL Immature Gran % (Auto) (0.0-0.4) % Neut % (Auto) (45-73) % Lymph % (Auto) (20-40) % [place] % (Auto) (2-11) % Eos % (Auto) (0-4) % Baso % (Auto) (0-2) % Lymph # (Auto) (1.2-4.9) X10*3/uL [place] # (Auto) (0.1-1.2) X10*3/uL Eos # (Auto) (0.0-0.4) X10*3/uL Baso # (Auto) (0.0-0.2) X10*3/uL Abs Immat Gran (auto) (0.00-0.03) X10*3/uL Absolute Neuts (auto) (2.0-8.3) x10*3/uL Absolute Nucleated RBC (0.0-0.012) X10*3/uL Nucleated RBC % (auto) (0.0-0.2) /100WBC Sodium (135-145) mmol/L Potassium (3.3-5.1) mmol/L Chloride (96-108) mmol/L Carbon Dioxide (22-29) mmol/L Anion Gap (12-20) BUN (9-16) mg/dL Creatinine (0.5-1.4) mg/dL Estim Creat Clear Calc Estimated GFR Random Glucose (60-115) mg/dL Lactic Acid 0.9 (0.5-2.0) mmol/L Calcium (8.4-10.2) mg/dL Total Bilirubin (0.0-1.0) mg/dL Direct Bilirubin (0.0-0.5) mg/dL AST (5-37) U/L ALT (0-40) U/L Alkaline Phosphatase (39-117) U/L B-Natriuretic Peptide (<100) pg/mL Total Protein (6.5-8.0) g/dL Albumin (3.5-5.0) g/dL Urine Color YELLOW Urine Appearance CLEAR Urine pH 7.0 (5.0-8.0) Ur Specific [place] <= 1.005 (1.005-1.025) Urine Protein NEG (NEG-TRACE) MG/DL Urine Glucose (UA) >=1000 H (NEG) MG/DL Urine Ketones NEG (NEG) MG/DL Urine Blood NEG (NEG) Urine Nitrite NEG (NEG) Ur Leukocyte Esterase NEG (NEG) Urine RBC 0 (0) /HPF Urine WBC 0 (0-4) /HPF Ur Squamous Epith Cells TRACE /LPF Urine Bacteria NONE /LPF COVID-19 (SHANA) Negative (Negative) COVID-19 Clin Com See Note ECG Data Attestation: I personally reviewed and interpreted this ECG as follows: ECG interpretation date: 08/18/21 ECG interpretation time: 12:15 Interpretation: EKG normal sinus rhythm with occasional PVCs. Artifact present. Rate of 67. Due to see 409. Nose numbing Discharge Plan Discharge Clinical Impression: ELIZABETH (acute kidney injury), Cellulitis Patient Disposition: Admitted As Inpatient
[2021-08-18 11:07] LABS: Alanine Aminotransferase 15 U/L (0-40); Albumin Level 3.6 g/dL (3.5-5.0); Alkaline Phosphatase 99 U/L (39-117); Anion Gap 11 (12-20); Aspartate Amino Transferase 14 U/L (5-37); Bilirubin Direct 0.2 mg/dL (0.0-0.5); Bilirubin Total 0.7 mg/dL (0.0-1.0); Blood Urea Nitrogen 58 mg/dL (9-16); Calcium 9.5 mg/dL (8.4-10.2); Carbon Dioxide 28 mmol/L (22-29); Chloride 103 mmol/L (96-108); Creatinine Clr Calc Pharmacy 17.9; Estimated Glomerular Filt Rate 21; Glucose Random 219 mg/dL (60-115); Potassium 5.4 mmol/L (3.3-5.1); Sodium 137 mmol/L (135-145)
[2021-08-18 11:08] LABS: B Type Natriuretic Peptide 278 pg/mL (<100)
--- NOTE | 2021-08-18 11:20 | ECG_ITS ---
Test Reason : hyperkalemia Blood Pressure : / mmHG Vent. Rate : 067 BPM Atrial Rate : 067 BPM P-R Int : 174 ms QRS Dur : 088 ms QT Int : 388 ms P-R-T Axes : 028 011 035 degrees QTc Int : 409 ms Sinus rhythm with occasional Premature ventricular complexes Otherwise normal ECG When compared with ECG of 07-JUL-2021 01:36, Premature ventricular complexes are now Present Referred By: Lisa Zimmerman Electronically Signed By:KRYSTEN COURTNEY MD
--- NOTE | 2021-08-18 12:06 | PHA.MEDREC ---
Pharmacy Consult ? Medication Reconciliation Pharmacy has completed the medication reconciliation.
[2021-08-18 12:09] LABS: Appearance Urine CLEAR; Color Urine YELLOW; Glucose Urine UA >=1000 MG/DL (NEG); Leukocyte Esterase Urine NEG (NEG); Nitrite Urine NEG (NEG); Specific Gravity - Urine <= 1.005 (1.005-1.025); Urine Blood NEG (NEG); Urine Ketones NEG (NEG); Urine Protein NEG (NEG-TRACE)
[2021-08-18 12:32] LABS: RBC Urine 0 /HPF (0); Squamous Epithelial Cell Urine TRACE /LPF; WBC Urine 0 /HPF (0-4)
[2021-08-18] MEDS: 0.9 % Sodium Chloride 500 ML 999 ML IV (13:05)
[2021-08-18 13:16] LABS: Lactic Acid 0.9 mmol/L (0.5-2.0)
[2021-08-18 13:19] LABS: COVID-19 Test Negative (Negative); IDNOW Serial# 16C4AD1C
[2021-08-18] MEDS: cefTRIAXone sodium 1 GM in 0.9 % Sodium Chloride 50 ML IV (13:34)
--- NOTE | 2021-08-18 13:58 | PM.IMHP ---
History of Present Illness Date of Service: 08/18/21 Attending physician on admission: Douglas Yee Chief Complaint: itchy leg rash This is an 80-year-old male with multiple medical problems who presented to the emergency department today with complaint of rash on his legs. For the past 2-3 days he has noticed redness on his bilateral lower legs. This area is very itchy. He does not have a rash on any other area of his body. He denies associated fevers or chills. He denies use of any new personal care products, detergent etc cetera. He denies any other changes prior to the onset of the rash. In the emergency department he was treated for possible cellulitis with IV ceftriaxone. He was afebrile and there was no leukocytosis on CBC. Lab work was significant for ELIZABETH with creatinine 2.91 and associated hyperkalemia with a potassium of 5.4. CT scan of the abdomen to evaluate for obstruction is pending at this time. The patient denies any urinary symptoms and has been eating and drinking well with no change in his appetite. Review of Systems Review of Systems: Yes all other systems are reviewed and are negative Constitutional: Constitutional: Denies chills and Denies fever(s) Cardiovascular: Cardiovascular: Denies chest pain, Denies palpitations and Denies dyspnea Respiratory: Respiratory: Denies dyspnea Gastrointestinal: Gastrointestinal: Denies abdominal pain Endocrine: Endocrine: Denies palpitations [facility] Medical History Adenocarcinoma of right lung (~2020) COPD (chronic obstructive pulmonary disease) Dementia Diabetes Former smoker, stopped smoking in distant past History of CVA (cerebrovascular accident) (~07/2020) HTN (hypertension) Hyperlipidemia Pneumonia Functional capacity: independent ambulation Pertinent family history: Family history was reviewed with the patient and unable to be obtained due to underlying memory impairment Surgical History History of lung biopsy (~10/2020) Social History Household Members: Spouse Household Members Other:: step-son spends the night frequently Housing: Apartment Do you presently have visiting nurse or other home services: Yes Alcohol intake: never Patient Tobacco Use Status: Former Tobacco user Advance Directives: Yes Advance Directives on File: Yes Advance Directives Date on File: 05/24/21 service: No Current occupational status: retired and disabled Meds Allergies Allergy/AdvReac Type Severity Reaction Status Date / Time Penicillins [PENICILLINS] Allergy Intermediate RASH Verified 04/06/21 10:59 Active Medications: Current Medications Acetaminophen (Acetaminophen 325 Mg Tablet) 650 mg PO Q6H PRN PRN Reason: Pain, Mild (Pain Scale 1-3) Amlodipine Besylate (Amlodipine Besylate 10 Mg Tablet) 10 mg PO BEDTIME EBER; Protocol Aspirin (Aspirin Enteric Coated 81 Mg Tablet.) 81 mg PO QAM EBER Atorvastatin Calcium (Atorvastatin Calcium 80 Mg Tablet) 80 mg PO BEDTIME EBER Dextrose (Dextrose 50 % 25 Gm/50 Ml Vial) 25 gm IVPUSH Q15M PRN; Protocol PRN Reason: per Hypoglycemia Standing Ord. Docusate Sodium (Docusate Sodium 100 Mg Capsule) 100 mg PO DAILY PRN PRN Reason: Constipation Glucose (Glucose Gel 15 Gm Gel..Gram.) 15 gm PO Q15M PRN; Protocol PRN Reason: per Hypoglycemia Standing Ord. Heparin Sodium (Porcine) (Heparin Sodium,Porcine 5,000 Unit/Ml Vial) 5,000 unit SUBCUT Q12H EBER Hydralazine HCl (Hydralazine Hcl 50 Mg Tablet) 50 mg PO BID EBER; Protocol Sodium Chloride (Ns) 500 mls @ 999 mls/hr IV .Q31M EBER Last Admin: 08/18/21 13:05 Dose: 999 mls/hr Documented by: Doxycycline Hyclate 100 mg/ (Sodium Chloride) 250 mls @ 166.67 mls/hr IV Q12H [facility] Insulin Human Lispro (Insulin Lispro 100 Unit/Ml 3 Ml Vial) 0 unit SUBCUT QIDACHS [facility]; Protocol Metoprolol Succinate (Metoprolol Succinate Er 50 Mg Tab.Er.24h) 50 mg PO DAILY EBER; Protocol Non-Formulary Medication (Insulin Asp Prt-Insulin Aspart [Novolog Mix 70-30flexpen U-100]) 48 unit SUBCUT QAM [facility] Non-Formulary Medication (Insulin Asp Prt-Insulin Aspart [Novolog Mix 70-30flexpen U-100]) 37 unit SUBCUT BEDTIME [facility] Omeprazole (Omeprazole 20 Mg Capsule.) 20 mg PO QAM [facility] Ondansetron HCl (Ondansetron Hcl 4 Mg/2 Ml Vial) 4 mg IVPUSH Q8H PRN PRN Reason: Nausea and Vomiting Pharmacy Consult (Consult Rx Perform Med Rec) 1 each MISCELLANE ONCE PRN PRN Reason: Consult order Sodium Chloride (0.9 % Sodium Chloride Flush 3 Ml Syringe) 3 ml IVFLUSH QSHIFT [facility] Sodium Zirconium Cyclosilicate (Sodium Zirconium Cyclosilicate 10 Gm Powd.Pack) 10 gm PO ONCE ONE Stop: 08/18/21 13:55 Vitamin D (Cholecalciferol (Vitamin D3) 25 Mcg Tablet) 25 mcg PO [facility] Home Medications Medication Instructions Recorded Confirmed Last Taken Type amlodipine 10 mg tablet 10 mg PO BEDTIME 03/07/21 08/18/21 05/16/21 History aspirin 81 mg tablet,delayed 81 mg PO QAM 03/07/21 08/18/21 05/16/21 History release atorvastatin 80 mg tablet 80 mg PO BEDTIME 03/07/21 08/18/21 05/16/21 History cholecalciferol (vitamin D3) 25 25 mcg PO QAM 03/07/21 08/18/21 05/16/21 History mcg (1,000 unit) tablet furosemide 40 mg tablet 40 mg PO QAM 03/07/21 08/18/21 05/16/21 History omeprazole 20 mg capsule,delayed 20 mg PO QAM 03/07/21 08/18/21 05/16/21 History release dulaglutide 0.75 mg/0.5 mL 0.75 mg SUBCUT QWEEK 07/07/21 08/18/21 Unknown History subcutaneous pen injector (Trulicity) empagliflozin 10 mg tablet 10 mg PO QAM 07/07/21 08/18/21 Unknown History (Jardiance) hydralazine 50 mg tablet 50 mg PO BID 07/07/21 08/18/21 Unknown History insulin aspar prot-insulin aspart 37 unit SUBCUT BEDTIME 07/07/21 08/18/21 Unknown History 100 unit/mL (70-30) subcutaneous pen (Novolog Mix 70-30FlexPen U-100) insulin aspar prot-insulin aspart 48 unit SUBCUT QAM 07/07/21 08/18/21 Unknown History 100 unit/mL (70-30) subcutaneous pen (Novolog Mix 70-30FlexPen U-100) losartan 50 mg tablet 100 mg PO DAILY 07/07/21 08/18/21 Unknown History metoprolol succinate 50 mg 50 mg PO DAILY 07/07/21 08/18/21 Unknown History tablet,extended release 24 hr Physical Exam Vital Signs and Narrative: Vital Signs: Last Vital Signs Temp 97.5 F 08/18/21 09:21 Pulse 62 08/18/21 09:21 Resp 16 08/18/21 09:21 BP 151/41 H 08/18/21 09:21 Pulse Ox 99 08/18/21 09:21 BMI result Body Mass Index 26.6 Const: General: cooperative, comfortable, no acute distress, alert and awake Nutritional Appearance: average body habitus Eyes: Pupils: Equal, round and reactive pupils present Resp: Effort & Inspection: normal respiratory effort and able to speak in complete sentences Cardio: Rate: regular rate Heart sounds: S1 normal heart sound present and S2 normal heart sound present GI: Inspection: No distended Palpation (GI): Soft to palpation and nontender Skin: Other: Neuro: Cranial nerves: Yes Equal, round and reactive pupils present Results Labs CBC and Chem 7: 08/18/21 10:41 08/18/21 10:41 Labs: Laboratory Results - last 24 hr 08/18/21 08/18/21 08/18/21 10:41 10:41 10:41 MCV 87.2 MCH 26.7 L MCHC 30.7 L RDW 15.5 Plt Count 253 MPV 10.7 Immature Gran % (Auto) 0.3 Neut % (Auto) 54.6 Lymph % (Auto) 30.4 [place] % (Auto) 8.0 Eos % (Auto) 6.0 H Baso % (Auto) 0.7 Lymph # (Auto) 2.8 [place] # (Auto) 0.7 Eos # (Auto) 0.6 H Baso # (Auto) 0.1 Abs Immat Gran (auto) 0.03 Absolute Neuts (auto) 5.0 Absolute Nucleated RBC 0.000 Nucleated RBC % (auto) 0.0 Anion Gap 11 L Estim Creat Clear Calc 17.9 Estimated GFR 21 Random Glucose 219 H Lactic Acid Calcium 9.5 D Total Bilirubin 0.7 Direct Bilirubin 0.2 AST 14 ALT 15 Alkaline Phosphatase 99 D B-Natriuretic Peptide 278 H Total Protein 7.0 D Albumin 3.6 D Urine Color Urine Appearance Urine pH Ur Specific [place] Urine Protein Urine Glucose (UA) Urine Ketones Urine Blood Urine Nitrite Ur Leukocyte Esterase Urine RBC Urine WBC Ur Squamous Epith Cells Urine Bacteria COVID-19 (SHANA) COVID-19 Clin Com 08/18/21 08/18/21 08/18/21 11:21 11:21 11:50 MCV MCH MCHC RDW Plt Count MPV Immature Gran % (Auto) Neut % (Auto) Lymph % (Auto) [place] % (Auto) Eos % (Auto) Baso % (Auto) Lymph # (Auto) [place] # (Auto) Eos # (Auto) Baso # (Auto) Abs Immat Gran (auto) Absolute Neuts (auto) Absolute Nucleated RBC Nucleated RBC % (auto) Anion Gap Estim Creat Clear Calc Estimated GFR Random Glucose Lactic Acid 0.9 Calcium Total Bilirubin Direct Bilirubin AST ALT Alkaline Phosphatase B-Natriuretic Peptide Total Protein Albumin Urine Color YELLOW Urine Appearance CLEAR Urine pH 7.0 Ur Specific [place] <= 1.005 Urine Protein NEG Urine Glucose (UA) >=1000 H Urine Ketones NEG Urine Blood NEG Urine Nitrite NEG Ur Leukocyte Esterase NEG Urine RBC 0 Urine WBC 0 Ur Squamous Epith Cells TRACE Urine Bacteria NONE COVID-19 (SHANA) Negative COVID-19 Clin Com See Note Imaging Radiologist's Impressions: Impressions Venous Duplex 08/18/21 11:11 IMPRESSION: No DVT demonstrated in the left lower extremity. Chest X-Ray 08/18/21 11:35 IMPRESSION: Mild bibasilar patchy opacities may reflect infectious inflammatory process. Assessment and Plan (1) ELIZABETH (acute kidney injury): Status: Acute Plan This is an 80-year-old male with history of dementia, stroke, COPD, hypertension, hyperlipidemia, diabetes and lung cancer who was brought to the emergency department for evaluation of lower extremity pruritic rash found to have ELIZABETH. ELIZABETH on CKD3 creatinine 2.91, basline around 1.5 CT to r/o obstruction pending gentle IVF hold nephrotoxins (lasix, losartan) close monitoring of renal function b/l Lower extremity rash/dermatitis rash covering knee to ankle on both lower legs no systemic features to indicate cellulitis but given age and relative immune compromise with DM will cover with Doxycycline due to risk of superimposed bacterial infection hydrocortisone cream DM on 70/30 insulin at home -will convert to Lantus while inpatient. monitor POCs -SSI, POCs, ADA diet HTN continue home doses of Norvasc, hydralzine, metoprolol hold losartan for ELIZABETH Chronic HFpEF lasix on hold for ELIZABETH monitor fluid status closely HLD Continue statin gerd Continue omeprazole h/o CVA continue asa, statin Lung adenocarcinoma FNA 10/2020 revealed lung adenocarcinoma staging CT chest/abdomen/pelvis from 01/2021 with no evidence of metastatic disease follows with Dr. Dsouza, Dr. Chino, likely not good surgical candidate due to dementia and multiple co-morbidities unclear if he has begun treatment DVT ppx -heparin due to renal dysfunction Code status - full code Attending: dr. ojeda Due to pt age multiple medical comorbidities including DM, patient will likely require 2 midnights in the hospital for evaluation/treatment of ELIZABETH and well as dermatitis of b/l legs Quality Stroke Does the patient have a stroke diagnosis?: No VTE Prior VTE?: No VTE Risk Level:: Medical - moderate - high VTE Device Contraindication: Treatment Not Indicated VTE Drug Contraindication: N/A - Med Ordered
[2021-08-18] MEDS: Sodium Zirconium Cyclosilicate 10 GM POWD.PACK PO (14:33)
[2021-08-18] MEDS: Doxycycline Hyclate 100 MG in 0.9 % Sodium Chloride 250 ML 166.67 MG IV (14:39)
[2021-08-18] MEDS: Heparin Sodium,Porcine 5,000 UNIT/ML VIAL 5000 UNIT SUBCUT (14:42)
[2021-08-18] MEDS: Hydrocortisone 1 % Ointment 28.35 GM TUBE 1 APPL TOPICAL ×3 (14:47→22:49)
[2021-08-18 16:50] VITALS: BP 141/48; PULSE 59; RESP 14; TEMP 36.3; O2SAT 98
[2021-08-18] MEDS: Cholecalciferol (Vitamin D3) 25 MCG TABLET PO (17:09)
[2021-08-18] MEDS: Aspirin Enteric Coated 81 MG TABLET.DR PO (17:09)
[2021-08-18] MEDS: 0.9 % Sodium Chloride Flush 3 ML SYRINGE IVFLUSH (17:10)
[2021-08-18] MEDS: Lactated Ringers 1,000 ML 80 ML IVCONT (17:11)
[2021-08-18 18:12] LABS: Glucose, Whole Blood 190 mg/dL (60-115)
[2021-08-18] MEDS: Insulin Lispro 100 UNIT/ML 3 ML VIAL SUBCUT ×2 (18:21→22:28)
[2021-08-18 20:21] LABS: Glucose, Whole Blood 175 mg/dL (60-115)
[2021-08-18 20:45] VITALS: BP 116/42; PULSE 62; RESP 14; TEMP 37.2; O2SAT 97
[2021-08-18] MEDS: hydrALAZINE HCl 50 MG TABLET PO (22:27)
[2021-08-18] MEDS: amLODIPine Besylate 10 MG TABLET PO (22:27)
[2021-08-18] MEDS: Atorvastatin Calcium 80 MG TABLET PO (22:27)
[2021-08-18] MEDS: Insulin Glargine,Hum.rec.anlog 100 UNIT/ML 10 ML VIAL 48 UNIT SUBCUT (22:28)
[2021-08-19] MEDS: 0.9 % Sodium Chloride Flush 3 ML SYRINGE IVFLUSH ×2 (00:47→07:55)
[2021-08-19 00:48] VITALS: BP 141/62; PULSE 67; RESP 18; TEMP 37.2; O2SAT 98
[2021-08-19 01:13] VITALS: BP 163/82
[2021-08-19] MEDS: Doxycycline Hyclate 100 MG in 0.9 % Sodium Chloride 250 ML 166.67 MG IV ×2 (04:01→15:12)
[2021-08-19] MEDS: Heparin Sodium,Porcine 5,000 UNIT/ML VIAL 5000 UNIT SUBCUT ×2 (04:04→15:13)
[2021-08-19] MEDS: Omeprazole 20 MG CAPSULE.DR PO (05:58)
[2021-08-19 07:22] LABS: Glucose, Whole Blood 98 mg/dL (60-115)
[2021-08-19 07:33] LABS: Anion Gap 10 (12-20); Blood Urea Nitrogen 40 mg/dL (9-16); Carbon Dioxide 25 mmol/L (22-29); Chloride 108 mmol/L (96-108); Creatinine Clr Calc Pharmacy 29.3; Estimated Glomerular Filt Rate 37; Glucose Random 103 mg/dL (60-115); Potassium 4.4 mmol/L (3.3-5.1); Sodium 139 mmol/L (135-145)
[2021-08-19] MEDS: Hydrocortisone 1 % Ointment 28.35 GM TUBE 1 APPL TOPICAL (08:03)
[2021-08-19] MEDS: Metoprolol Succinate ER 50 MG TAB.ER.24H PO (08:35)
[2021-08-19] MEDS: Aspirin Enteric Coated 81 MG TABLET.DR PO (08:35)
[2021-08-19] MEDS: Cholecalciferol (Vitamin D3) 25 MCG TABLET PO (08:35)
[2021-08-19] MEDS: hydrALAZINE HCl 50 MG TABLET PO ×2 (08:36→20:55)
--- NOTE | 2021-08-19 09:06 | MHC.CM.PN ---
IMM 08/19/21, CM CONTACTED PT'S DTR/HCP AT 0850 AND ASSESMENT PT HAS DEMENTIA, JOLYNN REPORTS PT LIVES W/SPOUSE AND STEP SON CONT'S TO STAY OVERNIGHT FREQUENTLY, PT HAS A WALKER HE DOES NOT LIKE TO USE AND HAS UNSTEADY GAIT, PT HAS HOME CARE [facility] [phone] BID 7D/WK AND HIS GDTR IS HIS [facility] THROUGH [facility], PT HAS 2DAY HRS AND 2 EVENING HRS AND IS ASSISTED WITH ADL'S/SHOWERING ETC. JOLYNN REPORTING THEY STILL HAVE NOT BEEN ABLE TO GET PT TO A PET SCAN HE HAS NOT BEEN VERY COOPERATIVE ABOUT GETTING UP EARLY AND GETTING TO APPT HE NEEDS TO EAT 4HRS PRIOR TO SCAN. D/C PLAN: HOME W/RESUMP OF HOME CARE [facility] & [facility] [employer] HRS, FAMILY FOR TRANSPORT ONCOLOGY: DR STINSON HCP: DTR-JOLYNN BRIGGS [phone] PCP: DTR REPORTS PT USES [facility] NAME ON FILE AND PREVIOUS CM NOTES LIST DR SINGLETON, RUMA WILL CLARIFY FRIDAY.
[2021-08-19 12:27] VITALS: BP 129/57; PULSE 56; RESP 16; TEMP 36.2; O2SAT 97
--- NOTE | 2021-08-19 12:40 | PC.NURSE ---
insulin held due to late lunch.
--- NOTE | 2021-08-19 13:22 | HO.PM.IMPN ---
Subjective Subjective Date of Service: 08/19/21 <AKIKO Ford - Last Filed: 08/19/21 13:38> 08/19/21 <Feliberto Bills DO - Last Filed: 08/19/21 15:36> Interval History: seen and examined this morning follow up for leg rash still with significant itching; no pain, no fever/chills <AKIKO Ford - Last Filed: 08/19/21 13:38> Review of Systems Review of Systems: Yes all other systems are reviewed and are negative <AKIKO Ford - Last Filed: 08/19/21 13:38> Constitutional Constitutional: Denies chills and Denies fever(s) <AKIKO Ford - Last Filed: 08/19/21 13:38> Cardiovascular Cardiovascular: Denies chest pain and Denies dyspnea <AKIKO Ford - Last Filed: 08/19/21 13:38> Respiratory Respiratory: Denies cough and Denies dyspnea <AKIKO Ford - Last Filed: 08/19/21 13:38> Physical Exam Vital Signs: Vital Signs: Last Vital Signs Temp 97.2 F 08/19/21 12:27 Pulse 56 08/19/21 12:27 Resp 16 08/19/21 12:27 BP 129/57 L 08/19/21 12:27 Pulse Ox 97 08/19/21 12:27 BMI result Body Mass Index 26.6 <AKIKO Ford - Last Filed: 08/19/21 13:38> Const: General: cooperative, comfortable, no acute distress, alert and awake <AKIKO Ford - Last Filed: 08/19/21 13:38> Nutritional Appearance: average body habitus <AKIKO Ford - Last Filed: 08/19/21 13:38> Eyes: Pupils: Equal, round and reactive pupils present <AKIKO Ford - Last Filed: 08/19/21 13:38> Resp: Effort & Inspection: normal respiratory effort and able to speak in complete sentences <AKIKO Ford - Last Filed: 08/19/21 13:38> Cardio: Rate: regular rate <AKIKO Ford - Last Filed: 08/19/21 13:38> Heart sounds: S1 normal heart sound present and S2 normal heart sound present <AKIKO Ford - Last Filed: 08/19/21 13:38> GI: Inspection: No distended <AKIKO Ford - Last Filed: 08/19/21 13:38> Palpation (GI): Soft to palpation and nontender <AKIKO Ford - Last Filed: 08/19/21 13:38> Skin: Other: <AKIKO Ford - Last Filed: 08/19/21 13:38> Neuro: Cranial nerves: Yes Equal, round and reactive pupils present <AKIKO Ford Last Filed: 08/19/21 13:38> Objective Data Active Medications Acetaminophen (Acetaminophen 325 Mg Tablet) 650 mg PO Q6H PRN PRN Reason: Pain, Mild (Pain Scale 1-3) Amlodipine Besylate (Amlodipine Besylate 10 Mg Tablet) 10 mg PO BEDTIME [facility]; Protocol Last Admin: 08/18/21 22:27 Dose: 10 mg Documented by: JOSE CARLOS Aspirin (Aspirin Enteric Coated 81 Mg Tablet.) 81 mg PO DAILY [facility] Last Admin: 08/19/21 08:35 Dose: 81 mg Documented by: CRISTIAN Atorvastatin Calcium (Atorvastatin Calcium 80 Mg Tablet) 80 mg PO BEDTIME [facility] Last Admin: 08/18/21 22:27 Dose: 80 mg Documented by: JOSE CARLOS Dextrose (Dextrose 50 % 25 Gm/50 Ml Vial) 25 gm IVPUSH Q15M PRN; Protocol PRN Reason: per Hypoglycemia Standing Ord. Diphenhydramine HCl (Diphenhydramine Hcl 25 Mg Tablet) 25 mg PO Q6H PRN PRN Reason: Itching Docusate Sodium (Docusate Sodium 100 Mg Capsule) 100 mg PO DAILY PRN PRN Reason: Constipation Glucose (Glucose Gel 15 Gm Gel..Gram.) 15 gm PO Q15M PRN; Protocol PRN Reason: per Hypoglycemia Standing Ord. Heparin Sodium (Porcine) (Heparin Sodium,Porcine 5,000 Unit/Ml Vial) 5,000 unit SUBCUT Q12H [facility] Last Admin: 08/19/21 04:04 Dose: 5,000 unit Documented by: IRON Hydralazine HCl (Hydralazine Hcl 50 Mg Tablet) 50 mg PO BID [facility]; Protocol Last Admin: 08/19/21 08:36 Dose: 50 mg Documented by: CRISTIAN Hydrocortisone (Hydrocortisone 1 % Ointment 28.35 Gm Tube) 1 appl TOPICAL BID [facility]; Protocol Last Admin: 08/19/21 08:03 Dose: 1 appl Documented by: CRISTIAN Sodium Chloride (Ns) 500 mls @ 999 mls/hr IV .Q31M [facility] Last Infusion: 08/18/21 14:09 Dose: 0 mls/hr Documented by: ROGER Doxycycline Hyclate 100 mg/ (Sodium Chloride) 250 mls @ 166.67 mls/hr IV Q12H [facility] Last Admin: 08/19/21 04:01 Dose: 166.67 mls/hr Documented by: IRON Insulin Glargine (Insulin Glargine,Hum.Rec.Anlog 100 Unit/Ml 10 Ml Vial) 48 unit SUBCUT BEDTIME [facility] Last Admin: 08/18/21 22:28 Dose: 48 unit Documented by: JOSE CARLOS Insulin Human Lispro (Insulin Lispro 100 Unit/Ml 3 Ml Vial) 0 unit SUBCUT QIDACHS [facility]; Protocol Last Admin: 08/19/21 08:36 Dose: Not Given Documented by: CRISTIAN Non-Admin Reason: No Insulin Coverage Comments: POC 98, no coverage needed Metoprolol Succinate (Metoprolol Succinate Er 50 Mg Tab.Er.24h) 50 mg PO DAILY [facility]; Protocol Last Admin: 08/19/21 08:35 Dose: 50 mg Documented by: CRISTIAN Omeprazole (Omeprazole 20 Mg Capsule.) 20 mg PO DAILY@0630 [facility] Last Admin: 08/19/21 05:58 Dose: 20 mg Documented by: IRON Ondansetron HCl (Ondansetron Hcl 4 Mg/2 Ml Vial) 4 mg IVPUSH Q8H PRN PRN Reason: Nausea and Vomiting Pharmacy Consult (Consult Rx Perform Med Rec) 1 each MISCELLANE ONCE PRN PRN Reason: Consult order Sodium Chloride (0.9 % Sodium Chloride Flush 3 Ml Syringe) 3 ml IVFLUSH QSHIFT [facility] Last Admin: 08/19/21 07:55 Dose: 3 ml Documented by: ABDI Vitamin D (Cholecalciferol (Vitamin D3) 25 Mcg Tablet) 25 mcg PO DAILY [facility] Last Admin: 08/19/21 08:35 Dose: 25 mcg Documented by: CRISTIAN <AKIKO Ford - Last Filed: 08/19/21 13:38> Labs CBC & Chem 7: : 08/18/21 10:41 08/19/21 06:57 <AKIKO Ford - Last Filed: 08/19/21 13:38> Labs: Laboratory Results - last 24 hr 08/18/21 08/18/21 08/18/21 11:21 11:21 11:50 Anion Gap Estim Creat Clear Calc Estimated GFR POC Glucose Random Glucose Lactic Acid 0.9 Calcium Urine RBC 0 Urine WBC 0 Ur Squamous Epith Cells TRACE Urine Bacteria NONE COVID-19 (SHANA) Negative COVID-19 Clin Com See Note 08/18/21 08/18/21 08/19/21 18:01 20:17 06:57 Anion Gap 10 L Estim Creat Clear Calc 29.3 Estimated GFR 37 POC Glucose 190 H 175 H Random Glucose 103 D Lactic Acid Calcium 9.0 Urine RBC Urine WBC Ur Squamous Epith Cells Urine Bacteria COVID-19 (SHANA) COVID-19 Clin Com 08/19/21 07:13 Anion Gap Estim Creat Clear Calc Estimated GFR POC Glucose 98 Random Glucose Lactic Acid Calcium Urine RBC Urine WBC Ur Squamous Epith Cells Urine Bacteria COVID-19 (SHANA) COVID-19 Clin Com <AKIKO Ford - Last Filed: 08/19/21 13:38> Assessment and Plan (1) ELIZABETH (acute kidney injury): Status: Acute <AKIKO Ford - Last Filed: 08/19/21 13:38> (2) Cellulitis: Status: Acute <AKIKO Ford - Last Filed: 08/19/21 13:38> Plan This is an 80-year-old male with history of dementia, stroke, COPD, hypertension, hyperlipidemia, diabetes and lung cancer who was brought to the emergency department for evaluation of lower extremity pruritic rash found to have ELIZABETH. ELIZABETH on CKD3 creatinine down from 2.91 to 1.78, baseline around 1.5 CT negative for obstruction gentle IVF in light of CHF history hold nephrotoxins (lasix, losartan) close monitoring of renal function b/l Lower extremity rash/dermatitis possible superimposed cellulitis afebrile, no leukocytosis continue IV doxycycline, hydrocortisone cream prn benadryl for severe itching Hyperkalemia r/t ELZIABETH. resolved. DM on 70/30 insulin at home -will convert to Lantus while inpatient. monitor POCs -SSI, POCs, ADA diet HTN continue home doses of Norvasc, hydralzine, metoprolol hold losartan for ELIZABETH Chronic HFpEF lasix on hold for ELIZABETH monitor fluid status closely HLD Continue statin gerd Continue omeprazole h/o CVA continue asa, statin Lung adenocarcinoma outpatient follow up DVT ppx -heparin Code status - full code Attending: Dr. Bills Requires ongoing hospitalization for treatment of ELIZABETH and well as dermatitis/ cellulitis of b/l legs. given age and diabetes at risk for sepsis <AKIKO Ford - Last Filed: 08/19/21 13:38> This is an 80-year-old male with history of dementia, stroke, COPD, hypertension, hyperlipidemia, diabetes and lung cancer who was brought to the emergency department for evaluation of lower extremity pruritic rash found to have ELIZABETH. ELIZABETH on CKD3 creatinine down from 2.91 to 1.78, baseline around 1.5 CT negative for obstruction gentle IVF in light of CHF history hold nephrotoxins (lasix, losartan) close monitoring of renal function b/l Lower extremity rash/dermatitis possible superimposed cellulitis afebrile, no leukocytosis continue IV doxycycline, hydrocortisone cream prn benadryl for severe itching Hyperkalemia r/t ELIZABETH. resolved. DM on 70/30 insulin at home -will convert to Lantus while inpatient. monitor POCs -SSI, POCs, ADA diet HTN continue home doses of Norvasc, hydralzine, metoprolol hold losartan for ELIZABETH Chronic HFpEF lasix on hold for ELIZABETH monitor fluid status closely HLD Continue statin gerd Continue omeprazole h/o CVA continue asa, statin Lung adenocarcinoma outpatient follow up DVT ppx -heparin Code status - full code Attending: Dr. Bills Requires ongoing hospitalization for treatment of ELIZABETH and well as dermatitis/ cellulitis of b/l legs. given age and diabetes at risk for sepsis Patient examined chart reviewed. Agree with history and physical as well as assessment and plan as outlined by Ms. Ruiz <Feliberto Bills DO - Last Filed: 08/19/21 15:36> Quality Stroke Does the patient have a stroke diagnosis?: No <AKIKO Ford - Last Filed: 08/19/21 13:38> VTE Prior VTE?: No <AKIKO Ford - Last Filed: 08/19/21 13:38> VTE Risk Level:: Medical - moderate - high <AKIKO Ford - Last Filed: 08/19/21 13:38> VTE Device Contraindication: Treatment Not Indicated <AKIKO Ford - Last Filed: 08/19/21 13:38> VTE Drug Contraindication: N/A - Med Ordered <AKIKO Ford - Last Filed: 08/19/21 13:38>
[2021-08-19 13:34] LABS: Glucose, Whole Blood 139 mg/dL (60-115)
[2021-08-19] MEDS: Lactated Ringers 1,000 ML 80 ML IVCONT (13:37)
--- NOTE | 2021-08-19 14:59 | PC.NURSE ---
attempted to hang LR, IV occluded, 20G IV started right wrist. flds restarted, medicated per provider order.
[2021-08-19] MEDS: diphenhydrAMINE HCL 25 MG TABLET PO (15:12)
[2021-08-19] MEDS: Acetaminophen 325 MG TABLET 650 MG PO (15:12)
--- NOTE | 2021-08-19 15:33 | PC.NURSE ---
pt medicated per provider order. pt is still having discomfort in legs - asking for a different topical ointment, will contact provider
[2021-08-19] MEDS: Calamine/Zinc Oxide LOTION 177 ML BOTTLE 1 APPL TOPICAL (17:15)
--- NOTE | 2021-08-19 17:24 | PC.NURSE ---
pt medicated w prn calamine ointment, insulin held - late dinner in ED overflow
[2021-08-19 17:31] VITALS: BP 159/45; PULSE 72; RESP 16; TEMP 36.6; O2SAT 100
[2021-08-19 17:41] LABS: Glucose, Whole Blood 194 mg/dL (60-115)
--- NOTE | 2021-08-19 17:56 | PC.NURSE ---
pt a&ox3, vss, pt indicates some relief/cooling w calamine lotion.
[2021-08-19] MEDS: Insulin Lispro 100 UNIT/ML 3 ML VIAL SUBCUT (18:24)
[2021-08-19] MEDS: amLODIPine Besylate 10 MG TABLET PO (20:54)
[2021-08-19] MEDS: Atorvastatin Calcium 80 MG TABLET PO (20:54)
[2021-08-19] MEDS: Insulin Glargine,Hum.rec.anlog 100 UNIT/ML 10 ML VIAL 48 UNIT SUBCUT (20:55)
[2021-08-19 21:01] VITALS: BP 136/56; PULSE 56; RESP 16; TEMP 36.1; O2SAT 100
[2021-08-19 21:22] LABS: Glucose, Whole Blood 144 mg/dL (60-115)
[2021-08-20] VITALS (7 sets, daily range): BP systolic 114–156; BP diastolic 45–85; PULSE 52–80; RESP 13–20; TEMP 36.1–36.9; O2SAT 96–99
[2021-08-20] MEDS: Doxycycline Hyclate 100 MG in 0.9 % Sodium Chloride 250 ML 166.67 MG IV (02:53)
[2021-08-20] MEDS: Omeprazole 20 MG CAPSULE.DR PO (07:07)
[2021-08-20 07:11] LABS: Glucose, Whole Blood 46 mg/dL (60-115)
[2021-08-20 08:05] LABS: Glucose, Whole Blood 78 mg/dL (60-115)
[2021-08-20 09:14] LABS: Anion Gap 14 (12-20); Blood Urea Nitrogen 27 mg/dL (9-16); Carbon Dioxide 25 mmol/L (22-29); Chloride 107 mmol/L (96-108); Creatinine Clr Calc Pharmacy 36.3; Estimated Glomerular Filt Rate 47; Glucose Random 67 mg/dL (60-115); Potassium 4.5 mmol/L (3.3-5.1); Sodium 141 mmol/L (135-145)
[2021-08-20] MEDS: Heparin Sodium,Porcine 5,000 UNIT/ML VIAL 5000 UNIT SUBCUT ×2 (09:15→20:32)
[2021-08-20] MEDS: Cholecalciferol (Vitamin D3) 25 MCG TABLET PO (09:16)
[2021-08-20] MEDS: hydrALAZINE HCl 50 MG TABLET PO ×2 (09:16→20:33)
[2021-08-20] MEDS: Metoprolol Succinate ER 50 MG TAB.ER.24H PO (09:16)
[2021-08-20] MEDS: 0.9 % Sodium Chloride Flush 3 ML SYRINGE IVFLUSH ×2 (09:16→17:10)
[2021-08-20] MEDS: Aspirin Enteric Coated 81 MG TABLET.DR PO (09:16)
[2021-08-20] MEDS: Calamine/Zinc Oxide LOTION 177 ML BOTTLE 1 APPL TOPICAL ×2 (09:22→20:40)
--- NOTE | 2021-08-20 10:46 | HO.PM.IMPN ---
Subjective Subjective Date of Service: 08/20/21 Interval History: Complaining of itching bilateral lower extremities, otherwise offers no complaints of fever chills, no nausea, no vomiting, tolerating diet, no acute events overnight. Review of Systems Review of Systems: Yes all other systems are reviewed and are negative Physical Exam Vital Signs: Vital Signs: Last Vital Signs Temp 97.2 F 08/20/21 07:36 Pulse 80 08/20/21 07:36 Resp 13 08/20/21 07:36 BP 116/60 08/20/21 07:36 Pulse Ox 98 08/20/21 07:36 BMI result Body Mass Index 26.6 Const: Other: General awake alert x3, sitting comfortably in no acute distress. Neck supple no JVD. CVS regular rate rhythm, Respiratory lungs clear to auscultation, no respiratory distress, no wheeze, no rhonchi. Gastrointestinal abdomen soft, nontender, bowel sounds audible Extremities no edema, diffuse hyperemia both lower extremities extending from ankle to mid leg few scab Neuro nonfocal Psych appropriate affect Musculoskeletal no deformity Objective Data Active Medications Acetaminophen (Acetaminophen 325 Mg Tablet) 650 mg PO Q6H PRN PRN Reason: Pain, Mild (Pain Scale 1-3) Last Admin: 08/19/21 15:12 Dose: 650 mg Documented by: CRISTIAN Amlodipine Besylate (Amlodipine Besylate 10 Mg Tablet) 10 mg PO BEDTIME [facility]; Protocol Last Admin: 08/19/21 20:54 Dose: 10 mg Documented by: CEE Aspirin (Aspirin Enteric Coated 81 Mg Tablet.) 81 mg PO DAILY [facility] Last Admin: 08/20/21 09:16 Dose: 81 mg Documented by: MINSEH Atorvastatin Calcium (Atorvastatin Calcium 80 Mg Tablet) 80 mg PO BEDTIME [facility] Last Admin: 08/19/21 20:54 Dose: 80 mg Documented by: CEE Calamine (Calamine/Zinc Oxide Lotion 177 Ml Bottle) 1 appl TOPICAL Q3H PRN; Protocol PRN Reason: Itching Last Admin: 08/20/21 09:22 Dose: 1 appl Documented by: MINESH Dextrose (Dextrose 50 % 25 Gm/50 Ml Vial) 25 gm IVPUSH Q15M PRN; Protocol PRN Reason: per Hypoglycemia Standing Ord. Diphenhydramine HCl (Diphenhydramine Hcl 25 Mg Tablet) 25 mg PO Q6H PRN PRN Reason: Itching Last Admin: 08/19/21 15:12 Dose: 25 mg Documented by: CRISTIAN Docusate Sodium (Docusate Sodium 100 Mg Capsule) 100 mg PO DAILY PRN PRN Reason: Constipation Glucose (Glucose Gel 15 Gm Gel..Gram.) 15 gm PO Q15M PRN; Protocol PRN Reason: per Hypoglycemia Standing Ord. Heparin Sodium (Porcine) (Heparin Sodium,Porcine 5,000 Unit/Ml Vial) 5,000 unit SUBCUT Q12H [facility] Last Admin: 08/20/21 09:15 Dose: 5,000 unit Documented by: MINESH Hydralazine HCl (Hydralazine Hcl 50 Mg Tablet) 50 mg PO BID [facility]; Protocol Last Admin: 08/20/21 09:16 Dose: 50 mg Documented by: MINESH Sodium Chloride (Ns) 500 mls @ 999 mls/hr IV .Q31M [facility] Last Infusion: 08/18/21 14:09 Dose: 0 mls/hr Documented by: ROGER Doxycycline Hyclate 100 mg/ (Sodium Chloride) 250 mls @ 166.67 mls/hr IV Q12H [facility] Last Infusion: 08/20/21 04:55 Dose: 0 mls/hr Documented by: MARLEY Insulin Glargine (Insulin Glargine,Hum.Rec.Anlog 100 Unit/Ml 10 Ml Vial) 48 unit SUBCUT BEDTIME [facility] Last Admin: 08/19/21 20:55 Dose: 48 unit Documented by: CEE Insulin Human Lispro (Insulin Lispro 100 Unit/Ml 3 Ml Vial) 0 unit SUBCUT QIDACHS [facility]; Protocol Last Admin: 08/20/21 07:25 Dose: Not Given Documented by: MINESH Non-Admin Reason: No Insulin Coverage Metoprolol Succinate (Metoprolol Succinate Er 50 Mg Tab.Er.24h) 50 mg PO DAILY [facility]; Protocol Last Admin: 08/20/21 09:16 Dose: 50 mg Documented by: MINESH Omeprazole (Omeprazole 20 Mg Capsule.Dr) 20 mg PO DAILY@0630 [facility] Last Admin: 08/20/21 07:07 Dose: 20 mg Documented by: MINESH Ondansetron HCl (Ondansetron Hcl 4 Mg/2 Ml Vial) 4 mg IVPUSH Q8H PRN PRN Reason: Nausea and Vomiting Pharmacy Consult (Consult Rx Perform Med Rec) 1 each MISCELLANE ONCE PRN PRN Reason: Consult order Sodium Chloride (0.9 % Sodium Chloride Flush 3 Ml Syringe) 3 ml IVFLUSH QSHIFT [facility] Last Admin: 08/20/21 09:16 Dose: 3 ml Documented by: MINESH Vitamin D (Cholecalciferol (Vitamin D3) 25 Mcg Tablet) 25 mcg PO DAILY [facility] Last Admin: 08/20/21 09:16 Dose: 25 mcg Documented by: MINESH Labs CBC & Chem 7: 08/18/21 10:41 08/20/21 08:27 Labs: Laboratory Results - last 24 hr 08/19/21 08/19/21 08/19/21 13:30 17:29 21:00 Anion Gap Estim Creat Clear Calc Estimated GFR POC Glucose 139 H 194 H 144 H Random Glucose Calcium 08/20/21 08/20/21 08/20/21 07:08 08:02 08:27 Anion Gap 14 Estim Creat Clear Calc 36.3 Estimated GFR 47 POC Glucose 46 L* 78 Random Glucose 67 Calcium 10.0 D Microbiology Microbiology Results: Microbiology 08/18/21 17:36 Blood Culture - Preliminary Blood - Venous No growth after 24 hours. 08/18/21 11:21 Blood Culture - Preliminary Blood - Venous No growth after 24 hours. Assessment and Plan (1) ELIZABETH (acute kidney injury): Status: Acute (2) Cellulitis: Status: Acute Plan This is an 80-year-old male with history of dementia, stroke, COPD, hypertension, hyperlipidemia, diabetes and lung cancer who was brought to the emergency department for evaluation of lower extremity pruritic rash found to have ELIZABETH. ELIZABETH on CKD3 creatinine down from 2.91 to 1.4, baseline around 1.5 CT negative for obstruction Will DC IV fluid, hold nephrotoxins (lasix, losartan) close monitoring of renal function b/l Lower extremity cellulitis not related to diabetes Persistent bilateral lower extremity hyperemia and itching, on IV doxycycline, hydrocortisone cream ,prn benadryl for severe itching Will consult Infectious Disease, meanwhile change IV antibiotic to clindamycin, patient has allergy to penicillin that causes rash Hyperkalemia r/t ELIZABETH. resolved. Hypoglycemia with history of DM on 70/30 insulin at home , currently on Lantus- Blood sugar 46 this morning, will decrease dose of Lantus, continue SSI, POCs, ADA diet HTN continue home doses of Norvasc, hydralzine, metoprolol, BP stable, will resume losartan if blood pressure tolerates Chronic HFpEF lasix on hold for ELIZABETH, remains euvolemic follow clinical course HLD Continue statin gerd Continue omeprazole h/o CVA continue asa, statin Lung adenocarcinoma outpatient follow up DVT ppx -heparin Code status - full code Requires ongoing hospitalization for treatment of bilateral lower extremity cellulitis with IV antibiotic, not responding to current antibiotics, with high risk of sepsis with underlying diabetes, currently hypoglycemic requiring medication adjustment. Quality Stroke Does the patient have a stroke diagnosis?: No VTE Prior VTE?: No VTE Risk Level:: Medical - moderate - high VTE Device Contraindication: Treatment Not Indicated VTE Drug Contraindication: N/A - Med Ordered
[2021-08-20 11:39] LABS: Glucose, Whole Blood 158 mg/dL (60-115)
[2021-08-20] MEDS: Insulin Lispro 100 UNIT/ML 3 ML VIAL SUBCUT ×2 (11:52→20:31)
[2021-08-20] MEDS: Clindamycin Phosphate/D5W 600 MG/50 ML PIGGYBACK 100 MG IV ×2 (12:41→20:32)
--- NOTE | 2021-08-20 13:48 | P.CDIC_ITS ---
CDI Concurrent Query Documentation Clarification: PHYSICIAN'S DOCUMENTATION REQUEST Date of Query: 08/20/21 134 Patient Name: Jerome Davis Admit Date: 08/18/21 Dear Doctor, A review of the medical record indicates additional documentation may be needed. Please review below and update the documentation accordingly. Risk Factors/Clinical Indicators/Treatments Per MD progress note 08/20/21: b/l Lower extremity cellulitis Persistent bilateral lower extremity hyperemia and itching PMH: Diabetes Mellitus Please clarify the relationship between these conditions: * Yes, Cellulitis is related to / associated with / due to Diabetes Mellitus * No, Cellulitis is not related to / associated with / due to Diabetes Mellitus * Unable to determine Use of terms such as suspected, likely, concern for, or probable (associated with a specific diagnosis that is being evaluated, monitored, or treated as if it exists) are acceptable and can be coded in the inpatient setting, when documented at the time of discharge. Thank you, Aimee Anaya RN Extension: [phone] Please use your independent medical judgment in providing your response. THIS QUERY IS PART OF THE PERMANENT MEDICAL RECORD Provider Response: Other Other Diagnosis: See note not related to diabetes
[2021-08-20 16:46] LABS: Glucose, Whole Blood 133 mg/dL (60-115)
[2021-08-20 20:10] LABS: Glucose, Whole Blood 206 mg/dL (60-115)
[2021-08-20] MEDS: Insulin Glargine,Hum.rec.anlog 100 UNIT/ML 10 ML VIAL 38 UNIT SUBCUT (20:33)
[2021-08-20] MEDS: amLODIPine Besylate 10 MG TABLET PO ×2 (20:33→20:36)
[2021-08-20] MEDS: Atorvastatin Calcium 80 MG TABLET PO ×2 (20:33→20:36)
--- NOTE | 2021-08-20 21:18 | W.PM.IDCN ---
History of Present Illness Data of Consult Service Date: 08/20/21 Requesting physician: Francoise Zamorano Primary Care Provider: MD JEAN Guadarrama Reason for consult: bilateral lower extremity erythema He presents to hospital with three days bilateral lower extremity erythema. He has no fever or chills. Lower leg areas are itchy. He has no insect or unusual cream or lotion exposure. No one else is ill. Review of Systems Review of Systems: Yes all other systems are reviewed and are negative PMFSH Past Medical History Medical History Adenocarcinoma of right lung (~2020) COPD (chronic obstructive pulmonary disease) Dementia Diabetes Former smoker, stopped smoking in distant past History of CVA (cerebrovascular accident) (~07/2020) HTN (hypertension) Hyperlipidemia Pneumonia Functional capacity: independent ambulation Family History Family history: reviewed and not pertinent Surgical History Surgical History History of lung biopsy (~10/2020) Social History Social History Household Members: Family Household Members Other:: step-son spends the night frequently Housing: Apartment Do you presently have visiting nurse or other home services: Yes Alcohol intake: unknown Patient Tobacco Use Status: Former Tobacco user Advance Directives Date on File: 05/24/21 service: No Current occupational status: retired and disabled Meds Allergies Allergy/AdvReac Type Severity Reaction Status Date / Time Penicillins [PENICILLINS] Allergy Intermediate RASH Verified 04/06/21 10:59 Active Medications: Current Medications Acetaminophen (Acetaminophen 325 Mg Tablet) 650 mg PO Q6H PRN PRN Reason: Pain, Mild (Pain Scale 1-3) Last Admin: 08/19/21 15:12 Dose: 650 mg Documented by: Amlodipine Besylate (Amlodipine Besylate 10 Mg Tablet) 10 mg PO BEDTIME [facility]; Protocol Last Admin: 08/20/21 20:36 Dose: 10 mg Documented by: Aspirin (Aspirin Enteric Coated 81 Mg Tablet.) 81 mg PO DAILY [facility] Last Admin: 08/20/21 09:16 Dose: 81 mg Documented by: Atorvastatin Calcium (Atorvastatin Calcium 80 Mg Tablet) 80 mg PO BEDTIME [facility] Last Admin: 08/20/21 20:36 Dose: 80 mg Documented by: Calamine (Calamine/Zinc Oxide Lotion 177 Ml Bottle) 1 appl TOPICAL Q3H PRN; Protocol PRN Reason: Itching Last Admin: 08/20/21 20:40 Dose: 1 appl Documented by: Dextrose (Dextrose 50 % 25 Gm/50 Ml Vial) 25 gm IVPUSH Q15M PRN; Protocol PRN Reason: per Hypoglycemia Standing Ord. Diphenhydramine HCl (Diphenhydramine Hcl 25 Mg Tablet) 25 mg PO Q6H PRN PRN Reason: Itching Last Admin: 08/19/21 15:12 Dose: 25 mg Documented by: Docusate Sodium (Docusate Sodium 100 Mg Capsule) 100 mg PO DAILY PRN PRN Reason: Constipation Glucose (Glucose Gel 15 Gm Gel..Gram.) 15 gm PO Q15M PRN; Protocol PRN Reason: per Hypoglycemia Standing Ord. Heparin Sodium (Porcine) (Heparin Sodium,Porcine 5,000 Unit/Ml Vial) 5,000 unit SUBCUT Q12H [facility] Last Admin: 08/20/21 20:32 Dose: 5,000 unit Documented by: Hydralazine HCl (Hydralazine Hcl 50 Mg Tablet) 50 mg PO BID [facility]; Protocol Last Admin: 08/20/21 20:35 Dose: 50 mg Documented by: Clindamycin Phosphate (Cleocin) 600 mg in 50 mls @ 100 mls/hr IV Q8H [facility] Last Admin: 08/20/21 20:32 Dose: 100 mls/hr Documented by: Insulin Glargine (Insulin Glargine,Hum.Rec.Anlog 100 Unit/Ml 10 Ml Vial) 38 unit SUBCUT BEDTIME [facility] Last Admin: 08/20/21 20:33 Dose: 38 unit Documented by: Insulin Human Lispro (Insulin Lispro 100 Unit/Ml 3 Ml Vial) 0 unit SUBCUT QIDACHS [facility]; Protocol Last Admin: 08/20/21 20:31 Dose: 4 unit Documented by: Metoprolol Succinate (Metoprolol Succinate Er 50 Mg Tab.Er.24h) 50 mg PO DAILY [facility]; Protocol Last Admin: 08/20/21 09:16 Dose: 50 mg Documented by: Omeprazole (Omeprazole 20 Mg Capsule.) 20 mg PO DAILY@0630 [facility] Last Admin: 08/20/21 07:07 Dose: 20 mg Documented by: Ondansetron HCl (Ondansetron Hcl 4 Mg/2 Ml Vial) 4 mg IVPUSH Q8H PRN PRN Reason: Nausea and Vomiting Pharmacy Consult (Consult Rx Perform Med Rec) 1 each MISCELLANE ONCE PRN PRN Reason: Consult order Sodium Chloride (0.9 % Sodium Chloride Flush 3 Ml Syringe) 3 ml IVFLUSH QSHIFT [facility] Last Admin: 08/20/21 17:10 Dose: 3 ml Documented by: Vitamin D (Cholecalciferol (Vitamin D3) 25 Mcg Tablet) 25 mcg PO DAILY [facility] Last Admin: 08/20/21 09:16 Dose: 25 mcg Documented by: Home Medications Medication Instructions Recorded Confirmed Last Taken Type amlodipine 10 mg tablet 10 mg PO BEDTIME 03/07/21 08/18/21 05/16/21 History aspirin 81 mg tablet,delayed 81 mg PO QAM 03/07/21 08/18/21 05/16/21 History release atorvastatin 80 mg tablet 80 mg PO BEDTIME 03/07/21 08/18/21 05/16/21 History cholecalciferol (vitamin D3) 25 25 mcg PO QAM 03/07/21 08/18/21 05/16/21 History mcg (1,000 unit) tablet furosemide 40 mg tablet 40 mg PO QAM 03/07/21 08/18/21 05/16/21 History omeprazole 20 mg capsule,delayed 20 mg PO QAM 03/07/21 08/18/21 05/16/21 History release dulaglutide 0.75 mg/0.5 mL 0.75 mg SUBCUT QWEEK 07/07/21 08/18/21 Unknown History subcutaneous pen injector (Trulicity) empagliflozin 10 mg tablet 10 mg PO QAM 07/07/21 08/18/21 Unknown History (Jardiance) hydralazine 50 mg tablet 50 mg PO BID 07/07/21 08/18/21 Unknown History insulin aspar prot-insulin aspart 37 unit SUBCUT BEDTIME 07/07/21 08/18/21 Unknown History 100 unit/mL (70-30) subcutaneous pen (Novolog Mix 70-30FlexPen U-100) insulin aspar prot-insulin aspart 48 unit SUBCUT QAM 07/07/21 08/18/21 Unknown History 100 unit/mL (70-30) subcutaneous pen (Novolog Mix 70-30FlexPen U-100) losartan 50 mg tablet 100 mg PO DAILY 07/07/21 08/18/21 Unknown History metoprolol succinate 50 mg 50 mg PO DAILY 07/07/21 08/18/21 Unknown History tablet,extended release 24 hr Physical Exam Vital Signs: Vital Signs: Last Vital Signs Temp 97.5 F 08/20/21 19:14 Pulse 55 08/20/21 19:14 Resp 18 08/20/21 19:14 BP 143/66 H 08/20/21 19:14 Pulse Ox 98 08/20/21 19:14 BMI result Body Mass Index 26.6 Const: General: cooperative HENMT: Head: Yes normal to inspection Eyes: General: appearance normal, both eyes and all related structures Resp: Effort & Inspection: normal respiratory effort Cardio: Rate: regular rate Rhythm: regular rhythm GI: Palpation (GI): Soft to palpation and nontender Extrem: Other: mild erythema scaly legs Results Labs CBC & Chem 7: 08/18/21 10:41 08/20/21 08:27 Labs: BMP 08/20/21 08:27 Sodium 141 Potassium 4.5 Chloride 107 Carbon Dioxide 25 BUN 27 H Creatinine 1.44 H Calcium 10.0 D Microbiology Microbiology Results: Microbiology 08/18/21 17:36 Blood - Venous Blood Culture - Preliminary No growth after 48 hours. 08/18/21 11:21 Blood - Venous Blood Culture - Preliminary No growth after 48 hours. Assessment and Plan (1) Cellulitis: Status: Acute scaly areas legs more consistent with venous stasis dermatitis especially since bilateral there may be early area of cellulitis Plan Would continue Clindamycin IV can give po Clindamycin 300 mg tid for five days after. Can give topical steroids locally,treat venous stasis changes
[2021-08-21] MEDS: 0.9 % Sodium Chloride Flush 3 ML SYRINGE IVFLUSH ×2 (01:18→09:34)
[2021-08-21 03:36] VITALS: BP 139/63; PULSE 52; RESP 14; TEMP 36.7; O2SAT 97
[2021-08-21] MEDS: Clindamycin Phosphate/D5W 600 MG/50 ML PIGGYBACK 100 MG IV ×2 (04:21→12:32)
[2021-08-21 07:31] VITALS: BP 132/49; PULSE 61; RESP 18; TEMP 36.6; O2SAT 94
[2021-08-21 07:52] LABS: Glucose, Whole Blood 43 mg/dL (60-115)
[2021-08-21 08:00] LABS: Glucose, Whole Blood 80 mg/dL (60-115)
[2021-08-21] MEDS: Metoprolol Succinate ER 50 MG TAB.ER.24H PO (09:30)
[2021-08-21] MEDS: Cholecalciferol (Vitamin D3) 25 MCG TABLET PO (09:30)
[2021-08-21] MEDS: Omeprazole 20 MG CAPSULE.DR PO (09:31)
[2021-08-21] MEDS: hydrALAZINE HCl 50 MG TABLET PO ×2 (09:32→09:43)
[2021-08-21] MEDS: Aspirin Enteric Coated 81 MG TABLET.DR PO (09:42)
[2021-08-21 11:04] VITALS: BP 146/41; PULSE 54; RESP 18; TEMP 36.5; O2SAT 99
[2021-08-21 11:08] LABS: Glucose, Whole Blood 286 mg/dL (60-115)
[2021-08-21] MEDS: Loratadine 10 MG TABLET PO (12:31)
[2021-08-21] MEDS: Insulin Lispro 100 UNIT/ML 3 ML VIAL SUBCUT (12:31)
[2021-08-21] MEDS: Acetaminophen 325 MG TABLET 650 MG PO (12:41)
--- NOTE | 2021-08-21 16:01 | MHC.CM.PN ---
Addendum entered by Nessa Ortega 08/21/21 16:03: PATIENT TO RESUME HIS HOME CARE [facility] SERVICES Original Note: PLAN IS DC HOME WITH FAMILY. PATIENT HAS RX RN AWARE OF PLAN.
--- NOTE | 2021-08-31 13:30 | PM.DS ---
DS: Providers Provider Date of Service: 08/21/21 Date of admission: 08/18/21 13:50 Primary care physician: Grant Carlson MD Consults: 08/20/21 11:16 Consult to Infectious Diseases Routine Consulting Provider: Thuy Gale Reason for consultation: cellulitis Has provider been notified: No DS: Diagnosis Discharge Diagnosis (1) Cellulitis: Status: Acute DS: Summary Hospital Course Hospital Course: history of presenting illness Chief Complaint: itchy leg rash This is an 80-year-old male with multiple medical problems who presented to the emergency department today with complaint of rash on his legs.? For the past 2-3 days he has noticed redness on his bilateral lower legs.? This area is very itchy.? He does not have a rash on any other area of his body.? He denies associated fevers or chills.? He denies use of any new personal care products, detergent etc cetera.? He denies any other changes prior to the onset of the rash. In the emergency department he was treated for possible cellulitis with IV ceftriaxone.? He was afebrile and there was no leukocytosis on CBC. Lab work was significant for ELIZABETH with creatinine 2.91 and associated hyperkalemia with a potassium of 5.4. CT scan of the abdomen to evaluate for obstruction is pending at this time. The patient denies any urinary symptoms and has been eating and drinking well with no change in his appetite. hospital course 80-year-old male with history of dementia, stroke, COPD, hypertension, hyperlipidemia, diabetes and lung cancer who was brought to the emergency department for evaluation of lower extremity pruritic rash found to have ELIZABETH. ELIZABETH on CKD3, likely pre renal creatinine normalized with IV fluids CT abdomen negative for obstruction, recommend to discontinue Lasix. b/l Lower extremity cellulitis not related to diabetes, patient noted to have bilateral lower extremity itching and hyperemia, patient initially treated with IV doxycycline and hydrocortisone cream with concern for dermatitis patient seen in consultation by Infectious Disease Dr. Gale she recommended clindamycin for 5 days, since symptoms of redness and itching improved approving patient will be discharged home to finish the course of antibiotic, recommended to continue corticosteroid cream. Hyperkalemia r/t ELIZABETH. resolved. Diabetes mellitus on insulin patient noted to have few episodes of hypoglycemia, that improved with lowering dose of Lantus insulin, recommend to continue home medication 70/30 insulin and follow blood sugar closely. HTN noted to have soft blood pressure recommend to continue Norvasc, hydralazine, metoprolol at home dose, and dose of losartan reduced to 50 mg Chronic HFpEF patient appeared euvolemic will discontinue Lasix recommend outpatient follow-up PCP and recommend to call PCP with any shortness of breath or leg edema. HLD recommend to continue statin. gerd Continue omeprazole. h/o CVA continue asa, statin. Lung adenocarcinoma recommend outpatient follow up. Time Spent with Patient Time attestation: Total time spent providing and/or coordinating discharge services: Discharge coordination time: Greater than 30 minutes Quality: Stroke Does the patient have a stroke diagnosis?: No Physical Exam Vital Signs: Vital Signs: Last Vital Signs Temp 97.7 F 08/21/21 11:04 Pulse 54 08/21/21 11:04 Resp 18 08/21/21 11:04 BP 146/41 H 08/21/21 11:04 Pulse Ox 99 08/21/21 11:04 BMI result Body Mass Index 26.6 Const: Other: General awake alert x3, sitting comfortably in no acute distress.? Neck supple no JVD. CVS? regular rate rhythm, Respiratory lungs clear to auscultation, no respiratory distress, no wheeze, no rhonchi. Gastrointestinal abdomen soft, nontender, bowel sounds audible Extremities no edema, improving hyperemia both lower extremities extending from ankle to mid leg few dry scab Neuro nonfocal Psych appropriate affect Musculoskeletal no deformity Discharge Plan Discharge Patient Disposition: Home, Self-Care Discharge Diagnosis: Acute on chronic kidney disease stage 3 Bilateral lower extremity cellulitis not related to diabetes Hyperkalemia Hypoglycemia Referrals: Name,MD Grant [Primary Care Provider] - 1 Week Discharge Medications: New clindamycin HCl 300 mg capsule 300 mg PO TID Qty: 14 0RF Continued atorvastatin 80 mg tablet 80 mg PO BEDTIME 0RF aspirin 81 mg tablet,delayed release (DR/EC) 81 mg PO QAM 0RF amlodipine 10 mg tablet 10 mg PO BEDTIME 0RF omeprazole 20 mg capsule,delayed release(DR/EC) 20 mg PO QAM 0RF cholecalciferol (vitamin D3) 25 mcg (1,000 unit) tablet 25 mcg PO QAM 0RF Jardiance 10 mg Tablet 10 mg PO QAM 0RF Trulicity 0.75 mg/0.5 mL Pen Injector 0.75 mg SUBCUT QWEEK 0RF hydralazine 50 mg Tablet 50 mg PO BID 0RF metoprolol succinate 50 mg Tablet Extended Release 24 Hr 50 mg PO DAILY 0RF Changed losartan 50 mg Tablet 50 mg PO DAILY Qty: 0 0RF Rx Instructions: THIS WAS JUST RECENTLY INCREASED TO 100 MG Discontinued furosemide 40 mg tablet 40 mg PO QAM 0RF insulin asp prt-insulin aspart [Novolog Mix 70-30FlexPen U-100] 100 unit/mL (70-30) Insulin Pen 48 unit SUBCUT QAM 0RF insulin asp prt-insulin aspart [Novolog Mix 70-30FlexPen U-100] 100 unit/mL (70-30) Insulin Pen 37 unit SUBCUT BEDTIME 0RF No Action triamcinolone acetonide 0.1 % cream 1 appl topical DAILY 7 Days Qty: 30 0RF prednisone 10 mg tablet 10 mg PO DAILY Qty: 5 0RF (DME) compr.stocking,knee,long,large Misc See Rx Instructions .Route Qty: 12 0RF Rx Instructions: As directed Discharge Orders: Discharge Order (Routine); Ordered 08/21/21 Ordered By: Francoise Zamorano Diet: diabetic diet Activity on Discharge: As tolerated Stand Alone Forms: Patient Portal Discharge page Care Plan Goals: Take clindamycin 300 mg 3 times a day for 5 days for infection apply hydrocortisone/clindamycin cream to lower extremity, stop Lasix and follow-up with primary care physician if noted to have worsening lower extremity edema or shortness of breath Health Concerns: Diabetes mellitus as per patient not taking insulin at home, follow diabetic diet and all home medications as before Plan of Treatment: Follow-up with PCP in 1-2 weeks Assessment: Per discharge summary Discharge Date/Time: 08/21/21 16:55
== END 2021-08-21 16:55 | disposition home or self-care (01) | DRG 603 ==
LOC: HO.ED 12:08 → HO.EDOVER 14:14 → HO.S3 08-20 02:10
PROVIDERS: Physician Assistant; Admitting Provider Physician Assistant Medical; Emergency Provider Emergency Medicine; PCP Internal Medicine Geriatric Medicine; Visit Provider Hospitalist
DX: L03.116 Cellulitis of left lower limb (principal); N17.9 Acute kidney failure, unspecified; I13.0 Hypertensive heart and chronic kidney disease with heart failure and stage 1 through stage 4 chronic kidney disease, or unspecified chronic kidney disease; I50.32 Chronic diastolic (congestive) heart failure; L03.115 Cellulitis of right lower limb; I87.323 Chronic venous hypertension (idiopathic) with inflammation of bilateral lower extremity; Z87.891 Personal history of nicotine dependence; Z86.73 Personal history of transient ischemic attack (TIA), and cerebral infarction without residual deficits; F03.90 Unspecified dementia, unspecified severity, without behavioral disturbance, psychotic disturbance, mood disturbance, and anxiety; N18.30 Chronic kidney disease, stage 3 unspecified; K21.9 Gastro-esophageal reflux disease without esophagitis; E11.649 Type 2 diabetes mellitus with hypoglycemia without coma; Z85.118 Personal history of other malignant neoplasm of bronchus and lung; Z20.822 Contact with and (suspected) exposure to COVID-19; Z88.0 Allergy status to penicillin; Z79.82 Long term (current) use of aspirin; Z79.84 Long term (current) use of oral hypoglycemic drugs; Z79.899 Other long term (current) drug therapy
CPT/HCPCS: 36415; 71045; 74176; 80048; 80076; 81001; 81003; 82947; 83605; 83880; 85025; 87040; 87635; 93005; 93971; 96365; 99285; J0696; Q0163

== ENCOUNTER 2021-08-31 10:40 | Emergency (ER) | payer MEDICARE, MEDICAID, SELFPAY ==
[2021-08-31 10:44] VITALS: BP 112/61; PULSE 79; RESP 18; TEMP 36.4; O2SAT 94; BMI 32.8
--- NOTE | 2021-08-31 12:16 | ED.SKABFB ---
HPI - Skin/Abscess/Foreign Bdy General Chief complaint: Extremity Problem Stated complaint: Itchy/Blisters all over legs Time Seen by Provider: 08/31/21 11:49 Source: patient and old records reviewed Mode of arrival: ambulatory Limitations: no limitations History of Present Illness HPI narrative: just admitted for venous stasis dermatitis about 10 days ago Rx with topical steroids, oral clindamycin comes back as he notes his legs are itchy still he has no cream at home doesn't know how to take care of them. He does not wear compressive socks at home complaint: other (itchy legs with rash) Onset (ago): month(s) (1) Tetanus up to date: yes Location: LLE and RLE Severity: moderate Quality: pruritic Pain Consistency: constant Relieving factors: none Exacerbating factors: movement Context: other (hx of venous stasis dermatitis) Associated symptoms: itching Treatments prior to arrival: none Related Data Home Medications Medication Instructions Recorded Confirmed amlodipine 10 mg tablet 10 mg PO BEDTIME 03/07/21 08/18/21 aspirin 81 mg tablet,delayed 81 mg PO QAM 03/07/21 08/18/21 release atorvastatin 80 mg tablet 80 mg PO BEDTIME 03/07/21 08/18/21 cholecalciferol (vitamin D3) 25 25 mcg PO QAM 03/07/21 08/18/21 mcg (1,000 unit) tablet omeprazole 20 mg capsule,delayed 20 mg PO QAM 03/07/21 08/18/21 release dulaglutide 0.75 mg/0.5 mL 0.75 mg SUBCUT QWEEK 07/07/21 08/18/21 subcutaneous pen injector (Trulicity) empagliflozin 10 mg tablet 10 mg PO QAM 07/07/21 08/18/21 (Jardiance) hydralazine 50 mg tablet 50 mg PO BID 07/07/21 08/18/21 metoprolol succinate 50 mg 50 mg PO DAILY 07/07/21 08/18/21 tablet,extended release 24 hr Previous Rx's Medication Instructions Recorded clindamycin HCl 300 mg capsule 300 mg PO TID #14 cap 08/21/21 losartan 50 mg tablet 50 mg PO DAILY #0 tab 08/21/21 compr.stocking,knee,long,large #12 ea 08/31/21 prednisone 10 mg tablet 10 mg PO DAILY #5 tab 08/31/21 triamcinolone acetonide 0.1 % 1 appl TOPICAL DAILY 7 Days #30 g 08/31/21 topical cream Allergies Allergy/AdvReac Type Severity Reaction Status Date / Time Penicillins [PENICILLINS] Allergy Intermediate RASH Verified 04/06/21 10:59 Review of Systems Review of Systems: Constitutional : No Fever, No Chills ENT/Mouth : No sore throat, No Rhinorrhea Eyes: No Eye Pain, No Swelling, No Redness Cardiovascular : No Chest Pain, No SOB, pos lower extremity edema Respiratory : No Cough, No Sputum Gastrointestinal : No Nausea, No Vomiting, No Diarrhea, No abdominal Pain Genitourinary : No Dysuria, No Hematuria Musculoskeletal : No joint pain, No Myalgias, No Joint Swelling Skin : pos Skin Lesions, positive skin rash Neuro : No Weakness, No Numbness, No Headache Psych : No Anxiety, No Depression Heme/Lymph: No Bruising, No Bleeding,No Lymphadenopathy Endocrine : No Polyuria, No Polydipsia All other systems reviewed and are negative [facility] Past Medical History Attestation statement: The following information was validated with the patient. Medical History Adenocarcinoma of right lung (~2020) COPD (chronic obstructive pulmonary disease) Dementia Diabetes Former smoker, stopped smoking in distant past History of CVA (cerebrovascular accident) (~07/2020) HTN (hypertension) Hyperlipidemia Pneumonia Surgical History History of lung biopsy (~10/2020) Social History Social History Household Members: Family Household Members Other:: step-son spends the night frequently Housing: Apartment Do you presently have visiting nurse or other home services: Yes Alcohol intake: unknown Patient Tobacco Use Status: Former Tobacco user Advance Directives: Yes Advance Directives on File: Yes Advance Directives Date on File: 05/24/21 service: No Current occupational status: retired and disabled Physical Exam Vital Signs: Vital Signs: Last Vital Signs Temp 97.5 F 08/31/21 10:44 Pulse 79 08/31/21 10:44 Resp 18 08/31/21 10:44 BP 112/61 08/31/21 10:44 Pulse Ox 94 08/31/21 10:44 BMI result Body Mass Index 32.8 Appearance: Alert. Oriented X3. No acute distress. Eyes: Pupils equal, round and reactive to light. ENT: Pharynx normal. Neck: Normal inspection. Neck supple. CVS: Normal heart rate and rhythm. Pulses normal. Respiratory: No respiratory distress. Breath sounds normal. Abdomen: Soft and nontender. Skin: Skin warm and dry. Normal skin color. Normal skin turgor. Extremities: 1 to 2+ pitting edema of bilateral LE. shiny erythema of both legs states it is itchy no fluctuance, no abscess felt, no sig ttp Neuro: Oriented X 3. No motor deficit. No sensory deficit. Course Course Course Narrative: Cr 1.8 slightly bumped from baseline 1.5 H/H at baseline at this time BNP at baseline will start on topical medications and 10mg prednisone for 5 days, compression stockings. MDM - Skin/Abscess/Foreign Bdy MDM Narrative Medical decision making narrative: 80 yo male COPD, CHF with preserved EF, CVA, cellulitis, venous stasis dermatitis here with c/o return of leg itchiness - his legs are shiny and red. no overwhelming heat to the legs he has no ointment at home, no medicine for pruritis, does not know how to care for his legs does not wear compression stockings. The patient had DVT studies on 08/21 that were negative. Will order labs, topical steroids, low dose benadryl. Lab Data Result diagrams: 08/31/21 12:22 08/31/21 12:22 Labs: Lab Results 08/31/21 08/31/21 08/31/21 Range/Units 12:22 12:22 12:22 WBC 9.8 (4.8-10.8) X10*3/uL RBC 3.51 L (4.60-5.80) X10*6/uL Hgb 9.4 L (14.0-18.0) g/dl Hct 30.5 L (42.0-52.0) % MCV 86.9 (80.0-98.0) fL MCH 26.8 L (27.0-33.0) pg MCHC 30.8 L (31.0-36.0) g/dl RDW 15.9 (11.0-16.0) % Plt Count 272 (160-400) X10*3/uL MPV 10.9 (9.4-12.4) fL Immature Gran % (Auto) 0.4 (0.0-0.4) % Neut % (Auto) 58.3 (45-73) % Lymph % (Auto) 27.9 (20-40) % [place] % (Auto) 7.0 (2-11) % Eos % (Auto) 5.8 H (0-4) % Baso % (Auto) 0.6 (0-2) % Lymph # (Auto) 2.7 (1.2-4.9) X10*3/uL [place] # (Auto) 0.7 (0.1-1.2) X10*3/uL Eos # (Auto) 0.6 H (0.0-0.4) X10*3/uL Baso # (Auto) 0.1 (0.0-0.2) X10*3/uL Abs Immat Gran (auto) 0.04 H (0.00-0.03) X10*3/uL Absolute Neuts (auto) 5.7 (2.0-8.3) x10*3/uL Absolute Nucleated RBC 0.000 (0.0-0.012) X10*3/uL Nucleated RBC % (auto) 0.0 (0.0-0.2) /100WBC Sodium 141 (135-145) mmol/L Potassium 4.1 (3.3-5.1) mmol/L Chloride 104 (96-108) mmol/L Carbon Dioxide 26 (22-29) mmol/L Anion Gap 15 (12-20) BUN 48 H D (9-16) mg/dL Creatinine 1.86 H (0.5-1.4) mg/dL Estim Creat Clear Calc 29.8 Estimated GFR 35 Random Glucose 332 H D (60-115) mg/dL Calcium 9.5 (8.4-10.2) mg/dL Total Bilirubin 0.4 (0.0-1.0) mg/dL Direct Bilirubin < 0.2 (0.0-0.5) mg/dL AST 12 (5-37) U/L ALT 12 (0-40) U/L Alkaline Phosphatase 85 (39-117) U/L B-Natriuretic Peptide 246 H (<100) pg/mL Total Protein 7.0 (6.5-8.0) g/dL Albumin 3.7 (3.5-5.0) g/dL Discharge Plan Discharge Clinical Impression: Chronic venous stasis dermatitis Patient Disposition: Home, Self-Care Instructions: Lymphedema (ED), Dermatitis (ED), Venous Insufficiency (DC) Additional Instructions: return to ED for any worsening symptoms or concerns recheck kidney function on Friday with Primary care doctor you need to wear tight compression stocking daily, keep legs elevated Prescriptions: New triamcinolone acetonide 0.1 % cream 1 appl topical DAILY 7 Days Qty: 30 0RF prednisone 10 mg tablet 10 mg PO DAILY Qty: 5 0RF (DME) compr.stocking,knee,long,large Misc See Rx Instructions .Route Qty: 12 0RF Rx Instructions: As directed No Action atorvastatin 80 mg tablet 80 mg PO BEDTIME 0RF aspirin 81 mg tablet,delayed release (DR/EC) 81 mg PO QAM 0RF amlodipine 10 mg tablet 10 mg PO BEDTIME 0RF omeprazole 20 mg capsule,delayed release(DR/EC) 20 mg PO QAM 0RF cholecalciferol (vitamin D3) 25 mcg (1,000 unit) tablet 25 mcg PO QAM 0RF Jardiance 10 mg Tablet 10 mg PO QAM 0RF Trulicity 0.75 mg/0.5 mL Pen Injector 0.75 mg SUBCUT QWEEK 0RF hydralazine 50 mg Tablet 50 mg PO BID 0RF metoprolol succinate 50 mg Tablet Extended Release 24 Hr 50 mg PO DAILY 0RF clindamycin HCl 300 mg capsule 300 mg PO TID Qty: 14 0RF losartan 50 mg Tablet 50 mg PO DAILY Qty: 0 0RF Rx Instructions: THIS WAS JUST RECENTLY INCREASED TO 100 MG Referrals: Name,MD Grant [Primary Care Provider] - 3 days (repeat kidney function)
[2021-08-31] MEDS: diphenhydrAMINE HCL 25 MG TABLET 12.5 MG PO (12:24)
[2021-08-31 12:26] LABS: MANUAL DIFF FLAG NO
[2021-08-31 12:36] LABS: Basophils Absolute Auto 0.1 X10*3/uL (0.0-0.2); Basophils Percent Auto 0.6 % (0-2); Eosinophils Absolute Auto 0.6 X10*3/uL (0.0-0.4); Eosinophils Percent Auto 5.8 % (0-4); Hematocrit 30.5 % (42.0-52.0); Hemoglobin 9.4 g/dl (14.0-18.0); Imm Gran Abs Auto 0.04 X10*3/uL (0.00-0.03); Imm Gran Pct Auto 0.4 % (0.0-0.4); Lymphocytes Absolute Auto 2.7 X10*3/uL (1.2-4.9); Lymphocytes Percent Auto 27.9 % (20-40); Mean Corpuscular HGB Conc 30.8 g/dl (31.0-36.0); Mean Corpuscular Hemoglobin 26.8 pg (27.0-33.0); Mean Corpuscular Volume 86.9 fL (80.0-98.0); Mean Platelet Volume 10.9 fL (9.4-12.4); Monocytes Absolute Auto 0.7 X10*3/uL (0.1-1.2); Neutrophils Absolute Auto 5.7 x10*3/uL (2.0-8.3); Neutrophils Percent Auto 58.3 % (45-73); Platelet Count 272 X10*3/uL (160-400); Red Blood Count 3.51 X10*6/uL (4.60-5.80); Red Cell Distribution Width 15.9 % (11.0-16.0); White Blood Count 9.8 X10*3/uL (4.8-10.8)
[2021-08-31 12:46] LABS: Alanine Aminotransferase 12 U/L (0-40); Albumin Level 3.7 g/dL (3.5-5.0); Alkaline Phosphatase 85 U/L (39-117); Anion Gap 15 (12-20); Aspartate Amino Transferase 12 U/L (5-37); Bilirubin Direct < 0.2 mg/dL (0.0-0.5); Bilirubin Total 0.4 mg/dL (0.0-1.0); Blood Urea Nitrogen 48 mg/dL (9-16); Calcium 9.5 mg/dL (8.4-10.2); Carbon Dioxide 26 mmol/L (22-29); Chloride 104 mmol/L (96-108); Creatinine Clr Calc Pharmacy 29.8; Estimated Glomerular Filt Rate 35; Glucose Random 332 mg/dL (60-115); Potassium 4.1 mmol/L (3.3-5.1); Sodium 141 mmol/L (135-145)
[2021-08-31] MEDS: Triamcinolone Acet 0.1 % Cream 15 GM TUBE 1 APPL TOPICAL (12:50)
[2021-08-31 12:54] LABS: B Type Natriuretic Peptide 246 pg/mL (<100)
== END 2021-08-31 13:58 | disposition home or self-care (01) ==
PROVIDERS: Emergency Provider Emergency Medicine; PCP Internal Medicine Geriatric Medicine
DX: I87.2 Venous insufficiency (chronic) (peripheral) (principal); R21 Rash and other nonspecific skin eruption; R60.0 Localized edema; J44.9 Chronic obstructive pulmonary disease, unspecified; E11.9 Type 2 diabetes mellitus without complications; I10 Essential (primary) hypertension; Z86.73 Personal history of transient ischemic attack (TIA), and cerebral infarction without residual deficits; C34.91 Malignant neoplasm of unspecified part of right bronchus or lung; Z87.891 Personal history of nicotine dependence; Z87.01 Personal history of pneumonia (recurrent)
CPT/HCPCS: 36415; 80048; 80076; 83880; 85025; 99283; Q0163

== ENCOUNTER 2021-09-23 08:44 | Emergency (ER) | payer MEDICARE, MEDICAID, SELFPAY ==
--- NOTE | ~2021-09-23 | XR_ITS ---
EXAMINATION: XR CHEST CLINICAL INFORMATION: Dyspnea COMPARISON: August 18, [address] scan of January 10, 2021 TECHNIQUE: 2 views of the chest were obtained. FINDINGS: There is again noted to be an approximately 1.7 cm ill-defined density about the lower right lung. There appears be some pleural-parenchymal scarring in this location as well. There are some smaller nodular densities noted more superior to this in the right lung. Heart normal size. No evidence of pulmonary edema. No pneumothorax or pleural effusion. XR/XR chest 2V IMPRESSION: Right lung densities which appear to have been present dating back to CT scan of January 10, 2021. No definite acute parenchymal disease.
--- NOTE | ~2021-09-23 | US_ITS ---
EXAMINATION: US VENOUS ULTRASOUND WITH DOPPLER LOWER EXTREMITY, BILATERAL CLINICAL INFORMATION: Bilateral leg pain COMPARISON: August 18, 2021 and April 29, 2021 TECHNIQUE: Ultrasound of the deep veins is performed from the hip to the calf with compression sonography and color and pulse Doppler assessment. Spectral analysis with color-flow imaging is performed. FINDINGS: There is limited visualization of the bilateral peroneal veins and left posterior tibial vein RIGHT: There is normal venous compression and respiratory variation and augmented flow. The visualized common femoral vein, superficial femoral vein, profunda femoral vein, popliteal vein, and the trifurcation region shows no evidence of deep venous thrombosis. There is no significant popliteal fossa cyst. No popliteal artery aneurysm. The peroneal vein was not seen. LEFT: There is normal venous compression and respiratory variation and augmented flow. The visualized common femoral vein, superficial femoral vein, profunda femoral vein, popliteal vein, and the trifurcation region shows no evidence of deep venous thrombosis. There is no significant popliteal fossa cyst. No popliteal artery aneurysm.The peroneal vein and posterior tibial vein were not seen. There was limited because fixation of the distal superficial femoral vein however Doppler spectral flow was present. If the patient's symptoms persist, followup ultrasound in 5 days 7 days might be of value to exclude proximal propagation from a non-visualized calf vein. US/US venous duplex LE BI IMPRESSION: No acute DVT demonstrated in the bilateral lower extremity.
[2021-09-23 08:49] VITALS: BP 142/59; PULSE 82; RESP 16; TEMP 36.5; O2SAT 99; BMI 38.9
[2021-09-23 09:34] VITALS: BMI 34.0
--- NOTE | 2021-09-23 09:49 | PC.NURSE ---
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 PT REQUESTING COFFEE SEVERAL TIMES, PT AWARE HE IS HAVING SOME IMAGING DONE AND THEN WE WILL REVISIT PO LIQUIDS. THIS RN WAS PLACING CARDIAC LEADS ON PTS CHEST, I OBSERVED A PURPLE BRUISE TO LEFT ABDOMEN/LOWER RIB AREA. PT STATES HE FELT DIZZY AND FELL AT HOME 3 DAYS AGO. DENIES HEAD STRIKE.
[2021-09-23 09:52] LABS: MANUAL DIFF FLAG NO
--- NOTE | 2021-09-23 09:52 | ECG_ITS ---
Test Reason : DIZZY Blood Pressure : / mmHG Vent. Rate : 084 BPM Atrial Rate : 084 BPM P-R Int : 194 ms QRS Dur : 094 ms QT Int : 368 ms P-R-T Axes : 050 014 047 degrees QTc Int : 434 ms Sinus rhythm with frequent Premature ventricular complexes Incomplete right bundle branch block Borderline ECG When compared with ECG of 18-AUG-2021 12:15, No significant change was found Referred By: Kenia Xavier Electronically Signed By:KRYSTEN COURTNEY MD
[2021-09-23 09:53] LABS: Basophils Absolute Auto 0.1 X10*3/uL (0.0-0.2); Basophils Percent Auto 0.6 % (0-2); Eosinophils Absolute Auto 0.5 X10*3/uL (0.0-0.4); Eosinophils Percent Auto 3.7 % (0-4); Hematocrit 31.6 % (42.0-52.0); Hemoglobin 9.8 g/dl (14.0-18.0); Imm Gran Abs Auto 0.04 X10*3/uL (0.00-0.03); Imm Gran Pct Auto 0.3 % (0.0-0.4); Lymphocytes Absolute Auto 2.7 X10*3/uL (1.2-4.9); Mean Corpuscular Hemoglobin 26.8 pg (27.0-33.0); Mean Corpuscular Volume 86.3 fL (80.0-98.0); Mean Platelet Volume 11.4 fL (9.4-12.4); Monocytes Absolute Auto 0.8 X10*3/uL (0.1-1.2); Monocytes Percent Auto 6.2 % (2-11); Neutrophils Absolute Auto 8.1 x10*3/uL (2.0-8.3); Neutrophils Percent Auto 67.2 % (45-73); Platelet Count 268 X10*3/uL (160-400); Red Blood Count 3.66 X10*6/uL (4.60-5.80); Red Cell Distribution Width 14.8 % (11.0-16.0)
[2021-09-23 10:11] LABS: Alanine Aminotransferase 12 U/L (0-40); Albumin Level 3.8 g/dL (3.5-5.0); Alkaline Phosphatase 102 U/L (39-117); Anion Gap 13 (12-20); Aspartate Amino Transferase 13 U/L (5-37); Bilirubin Total 0.5 mg/dL (0.0-1.0); Blood Urea Nitrogen 24 mg/dL (9-16); Calcium 9.4 mg/dL (8.4-10.2); Carbon Dioxide 25 mmol/L (22-29); Chloride 106 mmol/L (96-108); Creatinine Clr Calc Pharmacy 44.2; Estimated Glomerular Filt Rate 54; Glucose Random 238 mg/dL (60-115); Potassium 4.1 mmol/L (3.3-5.1); Sodium 140 mmol/L (135-145); Total Protein 7.2 g/dL (6.5-8.0)
[2021-09-23 10:17] LABS: B Type Natriuretic Peptide 187 pg/mL (<100)
[2021-09-23 10:38] LABS: Troponin-I High Sensitivity 8.5 ng/L (<3.5-35.0)
[2021-09-23 10:40] VITALS: BP 160/68; PULSE 81; RESP 18; TEMP 36.9; O2SAT 97
--- NOTE | 2021-09-23 11:42 | ED.GENADULT ---
HPI - General Adult General Chief complaint: Skin/Abscess/Foreign Body Stated complaint: Rash on legs Time Seen by Provider: 09/23/21 09:00 Source: patient Mode of arrival: ambulatory Limitations: no limitations History of Present Illness HPI narrative: 80-year-old male with a history of diabetes, COPD, heart failure, CVA, cellulitis, chronic bilateral venous stasis dermatitis, presents for bilateral leg pain. Patient was seen on 08/31/2021, diagnosed with chronic venous stasis, told to wear compression stockings and use ointment he was prescribed. Patient does not seem to remember this. Patient is a poor historian. Patient states he has not been doing anything for his legs. From patient's medications, it appears he was prescribed Lasix in August, patient does not remember if he took it. Patient's weight today is 87.3 kg, I do not have another weight on him to determine if he has gained weight recently. Related Data Home Medications Medication Instructions Recorded Confirmed amlodipine 10 mg tablet 10 mg PO BEDTIME 03/07/21 08/18/21 aspirin 81 mg tablet,delayed 81 mg PO QAM 03/07/21 08/18/21 release atorvastatin 80 mg tablet 80 mg PO BEDTIME 03/07/21 08/18/21 cholecalciferol (vitamin D3) 25 25 mcg PO QAM 03/07/21 08/18/21 mcg (1,000 unit) tablet omeprazole 20 mg capsule,delayed 20 mg PO QAM 03/07/21 08/18/21 release dulaglutide 0.75 mg/0.5 mL 0.75 mg SUBCUT QWEEK 07/07/21 08/18/21 subcutaneous pen injector (Trulicity) empagliflozin 10 mg tablet 10 mg PO QAM 07/07/21 08/18/21 (Jardiance) hydralazine 50 mg tablet 50 mg PO BID 07/07/21 08/18/21 metoprolol succinate 50 mg 50 mg PO DAILY 07/07/21 08/18/21 tablet,extended release 24 hr Previous Rx's Medication Instructions Recorded clindamycin HCl 300 mg capsule 300 mg PO TID #14 cap 08/21/21 losartan 50 mg tablet 50 mg PO DAILY #0 tab 08/21/21 compr.stocking,knee,long,large #12 ea 08/31/21 prednisone 10 mg tablet 10 mg PO DAILY #5 tab 08/31/21 prednisone 10 mg tablet 10 mg PO DAILY 5 Days #5 tab 08/31/21 triamcinolone acetonide 0.1 % 1 appl TOPICAL DAILY 7 Days #30 g 08/31/21 topical cream triamcinolone acetonide 0.1 % 1 appl TOPICAL DAILY 7 Days #30 g 08/31/21 topical cream compress.stocking,knee,reg,lrg #2 ea 09/23/21 doxycycline hyclate 100 mg tablet 100 mg PO BID 10 Days #20 tab 09/23/21 furosemide 20 mg tablet 20 mg PO DAILY 10 Days #10 tab 09/23/21 triamcinolone acetonide 0.5 % 1 appl TOPICAL BID #15 g 09/23/21 topical cream Allergies Allergy/AdvReac Type Severity Reaction Status Date / Time Penicillins [PENICILLINS] Allergy Intermediate RASH Verified 04/06/21 10:59 Review of Systems Constitutional: Constitutional: Denies body ache(s), Denies chills, Denies fatigue, Denies fever(s), Denies headache(s), Denies malaise and Denies weakness Eyes: Eyes: Denies diplopia ENT: Denies vertigo, Denies dizziness, Denies headache(s) and Denies throat swelling Cardiovascular: Cardiovascular: Denies chest pain, Denies syncope, Denies leg edema, Denies lightheadedness, Denies Loss of Consciousness, Denies palpitations and Denies dyspnea Respiratory: Respiratory: Denies chest congestion, Denies cough and Denies dyspnea Gastrointestinal: Gastrointestinal: Denies abdominal pain, Denies hematochezia, Denies constipation, Denies diarrhea and Denies vomiting Musculoskeletal: Musculoskeletal: Reports no additional musculoskeletal complaints Integumentary/Breasts: Skin/Breast: Reports pruritus, Reports erythema, Reports skin pain and Reports skin swelling Neurologic: Denies confusion, Denies vertigo, Denies dizziness, Denies syncope, Denies headache(s) and Denies weakness Psychiatric: Psychiatric: Denies anxiety, Denies confusion and Denies depression Endocrine: Endocrine: Denies fatigue and Denies palpitations Allergic/Immunologic: Allergic/Immunologic: Denies throat swelling PMFSH Past Medical History Medical History Adenocarcinoma of right lung (~2020) COPD (chronic obstructive pulmonary disease) Dementia Diabetes Former smoker, stopped smoking in distant past History of CVA (cerebrovascular accident) (~07/2020) HTN (hypertension) Hyperlipidemia Pneumonia Surgical History History of lung biopsy (~10/2020) Social History Social History Household Members: Family Household Members Other:: step-son spends the night frequently Housing: Apartment Do you presently have visiting nurse or other home services: Yes Alcohol intake: unknown Patient Tobacco Use Status: Former Tobacco user Advance Directives: Yes Advance Directives on File: Yes Advance Directives Date on File: 05/24/21 service: No Current occupational status: retired and disabled Physical Exam ED Vital Signs: Vital Signs - 24 hr 09/23/21 08:49 09/23/21 10:40 09/23/21 12:32 Temperature 97.7 F 98.5 F Pulse Rate 82 81 80 Respiratory Rate 16 18 18 Blood Pressure 142/59 H 160/68 H 154/68 H Pulse Oximetry 99 97 97 BMI result Body Mass Index 34.0 Const General: no acute distress, alert and awake; No confusion Nutritional Appearance: obese Orientation/consciousness: patient oriented x3 and No confusion Limitations: no limitations HENMT Head: Yes normal to inspection, Yes No palpable skull fracture present and Yes normocephalic Eyes Pupils: Equal, round and reactive pupils present EOM: EOMs intact bilaterally Neck Neck: Yes normal visual inspection, Yes full ROM, Yes no lymphadenopathy and Yes no meningeal signs Resp Effort & Inspection: normal respiratory effort and able to speak in complete sentences Auscultation: clear to auscultation bilaterally, no crackles, no rales, no rhonchi and no wheezes Cardio Rate: regular rate Rhythm: regular rhythm Skin Other: Shiny anterior calves, left leg larger than right, red and indurated, seeping blisters left lateral calf Neuro General: patient oriented x3, no meningeal signs and No confusion Cranial nerves: Yes Equal, round and reactive pupils present Extrem General: Yes full ROM, Yes capillary refill normal and Yes normal exam except as noted Course Course Course Narrative: 80-year-old male with a past medical history of heart failure, CVA, cellulitis, COPD, diabetes, venous stasis dermatitis, who had negative DVT studies in the middle of last month, was told to wear compression stockings but who is not compliant presents today for worsening bilateral leg pain, legs feel tight and itchy. Obtain chest x-ray, labs, ultrasound, EKG, troponin. Patient has BNP of 187, patient had a BNP of 246 in August. Ultrasound is negative, troponin is not elevated, chest x-ray shows no pleural effusion or cardiomegaly, Prescribe a short course of Lasix, prescribed antibiotics, prescribed compression stockings Counseled patient to follow-up with primary care provider. FINDINGS: There is again noted to be an approximately 1.7 cm ill-defined density about the lower right lung. There appears be some pleural-parenchymal scarring in this location as well. There are some smaller nodular densities noted more superior to this in the right lung. Heart normal size. No evidence of pulmonary edema. No pneumothorax or pleural effusion. XR/XR chest 2V IMPRESSION: Right lung densities which appear to have been present dating back to CT scan of January 10, 2021. No definite acute parenchymal disease. US/US venous duplex LE BI IMPRESSION: No acute DVT demonstrated in the bilateral lower extremity. Medical Decision Making Lab Data Result diagrams: 09/23/21 09:44 09/23/21 09:44 Labs: Lab Results 09/23/21 09/23/21 09/23/21 Range/Units 09:44 09:44 09:44 WBC 12.0 H (4.8-10.8) X10*3/uL RBC 3.66 L (4.60-5.80) X10*6/uL Hgb 9.8 L (14.0-18.0) g/dl Hct 31.6 L (42.0-52.0) % MCV 86.3 (80.0-98.0) fL MCH 26.8 L (27.0-33.0) pg MCHC 31.0 (31.0-36.0) g/dl RDW 14.8 (11.0-16.0) % Plt Count 268 (160-400) X10*3/uL MPV 11.4 (9.4-12.4) fL Immature Gran % (Auto) 0.3 (0.0-0.4) % Neut % (Auto) 67.2 (45-73) % Lymph % (Auto) 22.0 (20-40) % [place] % (Auto) 6.2 (2-11) % Eos % (Auto) 3.7 (0-4) % Baso % (Auto) 0.6 (0-2) % Lymph # (Auto) 2.7 (1.2-4.9) X10*3/uL [place] # (Auto) 0.8 (0.1-1.2) X10*3/uL Eos # (Auto) 0.5 H (0.0-0.4) X10*3/uL Baso # (Auto) 0.1 (0.0-0.2) X10*3/uL Abs Immat Gran (auto) 0.04 H (0.00-0.03) X10*3/uL Absolute Neuts (auto) 8.1 (2.0-8.3) x10*3/uL Absolute Nucleated RBC 0.000 (0.0-0.012) X10*3/uL Nucleated RBC % (auto) 0.0 (0.0-0.2) /100WBC Sodium 140 (135-145) mmol/L Potassium 4.1 (3.3-5.1) mmol/L Chloride 106 (96-108) mmol/L Carbon Dioxide 25 (22-29) mmol/L Anion Gap 13 (12-20) BUN 24 H (9-16) mg/dL Creatinine 1.28 (0.5-1.4) mg/dL Estim Creat Clear Calc 44.2 Estimated GFR 54 Random Glucose 238 H (60-115) mg/dL Calcium 9.4 (8.4-10.2) mg/dL Total Bilirubin 0.5 (0.0-1.0) mg/dL AST 13 (5-37) U/L ALT 12 (0-40) U/L Alkaline Phosphatase 102 (39-117) U/L Troponin I High Sens (<3.5-35.0) ng/L B-Natriuretic Peptide 187 H (<100) pg/mL Total Protein 7.2 (6.5-8.0) g/dL Albumin 3.8 (3.5-5.0) g/dL 09/23/21 Range/Units 10:13 WBC (4.8-10.8) X10*3/uL RBC (4.60-5.80) X10*6/uL Hgb (14.0-18.0) g/dl Hct (42.0-52.0) % MCV (80.0-98.0) fL MCH (27.0-33.0) pg MCHC (31.0-36.0) g/dl RDW (11.0-16.0) % Plt Count (160-400) X10*3/uL MPV (9.4-12.4) fL Immature Gran % (Auto) (0.0-0.4) % Neut % (Auto) (45-73) % Lymph % (Auto) (20-40) % [place] % (Auto) (2-11) % Eos % (Auto) (0-4) % Baso % (Auto) (0-2) % Lymph # (Auto) (1.2-4.9) X10*3/uL [place] # (Auto) (0.1-1.2) X10*3/uL Eos # (Auto) (0.0-0.4) X10*3/uL Baso # (Auto) (0.0-0.2) X10*3/uL Abs Immat Gran (auto) (0.00-0.03) X10*3/uL Absolute Neuts (auto) (2.0-8.3) x10*3/uL Absolute Nucleated RBC (0.0-0.012) X10*3/uL Nucleated RBC % (auto) (0.0-0.2) /100WBC Sodium (135-145) mmol/L Potassium (3.3-5.1) mmol/L Chloride (96-108) mmol/L Carbon Dioxide (22-29) mmol/L Anion Gap (12-20) BUN (9-16) mg/dL Creatinine (0.5-1.4) mg/dL Estim Creat Clear Calc Estimated GFR Random Glucose (60-115) mg/dL Calcium (8.4-10.2) mg/dL Total Bilirubin (0.0-1.0) mg/dL AST (5-37) U/L ALT (0-40) U/L Alkaline Phosphatase (39-117) U/L Troponin I High Sens 8.5 (<3.5-35.0) ng/L B-Natriuretic Peptide (<100) pg/mL Total Protein (6.5-8.0) g/dL Albumin (3.5-5.0) g/dL Discharge Plan Discharge Clinical Impression: Acute bilateral venous stasis dermatitis, Cellulitis, Leg swelling Patient Disposition: Home, Self-Care Additional Instructions: You must use compression stockings. Please take the prescription I prescribed to a medical supply store so you can get compression stockings. Please take furosemide once a day for the next 10 days. Please call your primary care provider for follow-up appointment. You may need to be on a continuous dose of furosemide. Please take cephalexin as prescribed. Please apply the steroid cream to your legs twice a day and then put the compression stockings on. Please return to the emergency room for any new or concerning symptoms. Prescriptions: New furosemide 20 mg tablet 20 mg PO DAILY 10 Days Qty: 10 0RF doxycycline hyclate 100 mg tablet 100 mg PO BID 10 Days Qty: 20 0RF triamcinolone acetonide 0.5 % cream 1 appl topical BID Qty: 15 2RF Rx Instructions: apply to legs twice a day (DME) compress.stocking,knee,reg,lrg Misc See Rx Instructions .Route Qty: 2 0RF Rx Instructions: As directed No Action atorvastatin 80 mg tablet 80 mg PO BEDTIME 0RF aspirin 81 mg tablet,delayed release (DR/EC) 81 mg PO QAM 0RF amlodipine 10 mg tablet 10 mg PO BEDTIME 0RF omeprazole 20 mg capsule,delayed release(DR/EC) 20 mg PO QAM 0RF cholecalciferol (vitamin D3) 25 mcg (1,000 unit) tablet 25 mcg PO QAM 0RF Jardiance 10 mg Tablet 10 mg PO QAM 0RF Trulicity 0.75 mg/0.5 mL Pen Injector 0.75 mg SUBCUT QWEEK 0RF hydralazine 50 mg Tablet 50 mg PO BID 0RF metoprolol succinate 50 mg Tablet Extended Release 24 Hr 50 mg PO DAILY 0RF clindamycin HCl 300 mg capsule 300 mg PO TID Qty: 14 0RF losartan 50 mg Tablet 50 mg PO DAILY Qty: 0 0RF Rx Instructions: THIS WAS JUST RECENTLY INCREASED TO 100 MG triamcinolone acetonide 0.1 % cream 1 appl topical DAILY 7 Days Qty: 30 0RF prednisone 10 mg tablet 10 mg PO DAILY Qty: 5 0RF (DME) compr.stocking,knee,long,large Misc See Rx Instructions .Route Qty: 12 0RF Rx Instructions: As directed prednisone 10 mg tablet 10 mg PO DAILY 5 Days Qty: 5 0RF triamcinolone acetonide 0.1 % cream 1 appl topical DAILY 7 Days Qty: 30 0RF Interventions: ED Discharge Assessment Last Done: 09/23/21 14:03 Discharge Date/Time: 09/23/21 14:03
[2021-09-23 12:32] VITALS: BP 154/68; PULSE 80; RESP 18; O2SAT 97
== END 2021-09-23 14:03 | disposition home or self-care (01) ==
PROVIDERS: Physician Assistant; Emergency Provider Emergency Medicine; PCP Internal Medicine Geriatric Medicine
DX: I87.2 Venous insufficiency (chronic) (peripheral) (principal); L03.116 Cellulitis of left lower limb; L03.115 Cellulitis of right lower limb; M79.89 Other specified soft tissue disorders; M79.604 Pain in right leg; M79.605 Pain in left leg; I11.0 Hypertensive heart disease with heart failure; I50.9 Heart failure, unspecified; E11.9 Type 2 diabetes mellitus without complications; J44.9 Chronic obstructive pulmonary disease, unspecified; F03.90 Unspecified dementia, unspecified severity, without behavioral disturbance, psychotic disturbance, mood disturbance, and anxiety; Z86.73 Personal history of transient ischemic attack (TIA), and cerebral infarction without residual deficits
CPT/HCPCS: 36415; 71046; 80053; 83880; 84484; 85025; 93005; 93970; 99284

== ENCOUNTER 2021-10-03 09:22 | Outpatient (RCR) | payer MEDICARE, OTHER, MEDICAID, SELFPAY | END 2022-01-08 10:00 | disposition home or self-care (01) | LOC: HO.WCC 09:22 | PROVIDERS: PCP Internal Medicine Geriatric Medicine; Visit Provider Surgery | DX: E11.622 Type 2 diabetes mellitus with other skin ulcer (principal); I87.333 Chronic venous hypertension (idiopathic) with ulcer and inflammation of bilateral lower extremity; E11.51 Type 2 diabetes mellitus with diabetic peripheral angiopathy without gangrene; L97.821 Non-pressure chronic ulcer of other part of left lower leg limited to breakdown of skin; L97.811 Non-pressure chronic ulcer of other part of right lower leg limited to breakdown of skin; F03.90 Unspecified dementia, unspecified severity, without behavioral disturbance, psychotic disturbance, mood disturbance, and anxiety; C34.90 Malignant neoplasm of unspecified part of unspecified bronchus or lung | CPT/HCPCS: 97597; 99215 ==

== ENCOUNTER 2021-10-04 16:05 | Inpatient (IN) | payer MEDICARE, MEDICAID, SELFPAY ==
--- NOTE | ~2021-10-04 | US_ITS ---
EXAMINATION: BILATERAL LOWER EXTREMITY DEEP VENOUS ULTRASOUND CLINICAL INFORMATION: Bilateral leg swelling and pain. COMPARISON: Bilateral DVT study September 23, 2021 TECHNIQUE: Duplex Doppler imaging with compression maneuvers were performed of the bilateral lower extremity deep venous systems. FINDINGS: The bilateral visualized common femoral, femoral and popliteal veins demonstrate normal compressibility and color flow without evidence of venous thrombosis. Calf vein evaluation is somewhat limited due to subcutaneous edema bilaterally, however, visualized portions of the bilateral calf veins demonstrate normal color fill-in suggesting patency. There is no evidence of a Goins's cyst. US/US venous duplex LE BI IMPRESSION: No evidence of deep venous thrombosis involving the bilateral lower extremities.
[2021-10-04 16:18] VITALS: BP 137/65; BP 145/55; PULSE 69; PULSE 74; RESP 18; TEMP 36.9; O2SAT 97; O2SAT 98; BMI 31.5
--- NOTE | 2021-10-04 16:21 | ED_ITS ---
HPI - Extremity Problem General Chief complaint: Recheck/Abnormal Lab/Rx Stated complaint: LT FOOT PAIN, INFECTION, GLUCOSE 501 Time Seen by Provider: 10/04/21 16:20 Source: patient Mode of arrival: EMS Limitations: altered mental status History of Present Illness HPI Narrative: Patient 80 years old with history of dementia, CVA, COPD, hypertension, hyperlipidemia, diabetes adrenal carcinoma of the lung with history of ELIZABETH in 08/28 came here for worsening of the wound on the left leg for last few days patient was treated with clindamycin last month in our last few days has purulent discharge coming out from the wound with surrounding erythema. Also patient blood sugar was 501 on arrival patient used to be on Humulin 70 30 37 units at bedtime and Jardiance but patient now taking only Jardiance and Trulici ty at this time Related Data Home Medications Medication Instructions Recorded Confirmed amlodipine 10 mg tablet 10 mg PO BEDTIME 03/07/21 10/04/21 aspirin 81 mg tablet,delayed 81 mg PO QAM 03/07/21 10/04/21 release atorvastatin 80 mg tablet 80 mg PO BEDTIME 03/07/21 10/04/21 omeprazole 20 mg capsule,delayed 20 mg PO QAM 03/07/21 10/04/21 release dulaglutide 0.75 mg/0.5 mL 0.75 mg SUBCUT QWEEK 07/07/21 10/04/21 subcutaneous pen injector (Trulicity) empagliflozin 10 mg tablet 10 mg PO QAM 07/07/21 10/04/21 (Jardiance) hydralazine 50 mg tablet 50 mg PO BID 07/07/21 10/04/21 metoprolol succinate 50 mg 50 mg PO DAILY 07/07/21 10/04/21 tablet,extended release 24 hr dulaglutide 0.75 mg/0.5 mL 0.75 mg SUBCUT QWEEK 10/04/21 10/04/21 subcutaneous pen injector (Trulicity) Previous Rx's Medication Instructions Recorded losartan 50 mg tablet 50 mg PO DAILY #0 tab 08/21/21 compr.stocking,knee,long,large #12 ea 08/31/21 compress.stocking,knee,reg,lrg #2 ea 09/23/21 Allergies Allergy/AdvReac Type Severity Reaction Status Date / Time Penicillins [PENICILLINS] Allergy Intermediate RASH Verified 10/04/21 16:18 Review of Systems Review of Systems: Yes all other systems are reviewed and are negative [facility] Past Medical History Medical History Adenocarcinoma of right lung (~2020) COPD (chronic obstructive pulmonary disease) Dementia Diabetes Former smoker, stopped smoking in distant past History of CVA (cerebrovascular accident) (~07/2020) HTN (hypertension) Hyperlipidemia Pneumonia Surgical History History of lung biopsy (~10/2020) Social History Social History Household Members: Family Household Members Other:: step-son spends the night frequently Housing: Apartment Do you presently have visiting nurse or other home services: Yes Alcohol intake: never Patient Tobacco Use Status: Former Tobacco user Use of substances other than those prescribed or required for medical reasons: No Advance Directives: Yes Advance Directives on File: Yes Advance Directives Date on File: 05/24/21 service: No Current occupational status: retired and disabled Physical Exam Vital Signs: Vital Signs: Last Vital Signs Temp 97.9 F 10/04/21 22:34 Pulse 75 10/04/21 22:34 Resp 16 10/04/21 22:34 BP 160/48 H 10/04/21 22:34 Pulse Ox 99 10/04/21 22:34 BMI result Body Mass Index 31.5 Appearance: Alert. Oriented X3. No acute distress. Forgetful Eyes: No pallor or icterus ENT: Pharynx normal. Oral Mucosa moist Neck: Normal inspection. Neck supple. CVS: Normal heart rate and rhythm. Pulses normal. Respiratory: No respiratory distress. Equal air entry bilateral, no wheezing/rales/rhonchi Abdomen: Soft and nontender. Bowel sounds are present, no mass palpable, no CVA tenderness Skin: Skin warm and dry. Erythematous rash left lower extremity with open wound Normal skin turgor. Extremities: No lower extremity edema. No calf tenderness Neuro: Oriented X 2 MDM - Extremity (Nontraumatic) MDM Narrative Medical decision making narrative: Patient infected left lower extremity wound with several surrounding cellulitis failed outpatient antibiotic treatment we will admit for hyperglycemia and infected wound with cellulitis patient received IV fluid and antibiotics in the ER Lab Data Attestation: I reviewed the patient's lab results. Result diagrams: 10/04/21 17:06 10/04/21 17:06 Labs: Lab Results 10/04/21 10/04/21 10/04/21 Range/Units 16:16 17:06 17:06 WBC 8.4 (4.8-10.8) X10*3/uL RBC 3.76 L (4.60-5.80) X10*6/uL Hgb 10.0 L (14.0-18.0) g/dl Hct 32.6 L (42.0-52.0) % MCV 86.7 (80.0-98.0) fL MCH 26.6 L (27.0-33.0) pg MCHC 30.7 L (31.0-36.0) g/dl RDW 14.8 (11.0-16.0) % Plt Count 291 (160-400) X10*3/uL MPV 11.2 (9.4-12.4) fL Immature Gran % (Auto) 0.4 (0.0-0.4) % Neut % (Auto) 55.0 (45-73) % Lymph % (Auto) 33.4 (20-40) % [place] % (Auto) 6.3 (2-11) % Eos % (Auto) 4.2 H (0-4) % Baso % (Auto) 0.7 (0-2) % Lymph # (Auto) 2.8 (1.2-4.9) X10*3/uL [place] # (Auto) 0.5 (0.1-1.2) X10*3/uL Eos # (Auto) 0.4 (0.0-0.4) X10*3/uL Baso # (Auto) 0.1 (0.0-0.2) X10*3/uL Abs Immat Gran (auto) 0.03 (0.00-0.03) X10*3/uL Absolute Neuts (auto) 4.6 (2.0-8.3) x10*3/uL Absolute Nucleated RBC 0.000 (0.0-0.012) X10*3/uL Nucleated RBC % (auto) 0.0 (0.0-0.2) /100WBC Sodium 138 (135-145) mmol/L Potassium 4.1 (3.3-5.1) mmol/L Chloride 102 (96-108) mmol/L Carbon Dioxide 30 H (22-29) mmol/L Anion Gap 10 L (12-20) BUN 36 H (9-16) mg/dL Creatinine 1.71 H (0.5-1.4) mg/dL Estim Creat Clear Calc 34.1 Estimated GFR 39 POC Glucose 338 H (60-115) mg/dL Random Glucose 388 H* (60-115) mg/dL Lactic Acid (0.5-2.0) mmol/L Lactic Acid F/U @ 2Hr (0.5-2.0) mmol/L Calcium 9.4 (8.4-10.2) mg/dL Total Bilirubin 0.3 (0.0-1.0) mg/dL AST 13 (5-37) U/L ALT 11 (0-40) U/L Alkaline Phosphatase 102 (39-117) U/L Total Protein 7.0 (6.5-8.0) g/dL Albumin 3.6 (3.5-5.0) g/dL COVID-19 (SHANA) (Negative) COVID-19 Clin Com 10/04/21 10/04/21 10/04/21 Range/Units 17:06 19:31 19:42 WBC (4.8-10.8) X10*3/uL RBC (4.60-5.80) X10*6/uL Hgb (14.0-18.0) g/dl Hct (42.0-52.0) % MCV (80.0-98.0) fL MCH (27.0-33.0) pg MCHC (31.0-36.0) g/dl RDW (11.0-16.0) % Plt Count (160-400) X10*3/uL MPV (9.4-12.4) fL Immature Gran % (Auto) (0.0-0.4) % Neut % (Auto) (45-73) % Lymph % (Auto) (20-40) % [place] % (Auto) (2-11) % Eos % (Auto) (0-4) % Baso % (Auto) (0-2) % Lymph # (Auto) (1.2-4.9) X10*3/uL [place] # (Auto) (0.1-1.2) X10*3/uL Eos # (Auto) (0.0-0.4) X10*3/uL Baso # (Auto) (0.0-0.2) X10*3/uL Abs Immat Gran (auto) (0.00-0.03) X10*3/uL Absolute Neuts (auto) (2.0-8.3) x10*3/uL Absolute Nucleated RBC (0.0-0.012) X10*3/uL Nucleated RBC % (auto) (0.0-0.2) /100WBC Sodium (135-145) mmol/L Potassium (3.3-5.1) mmol/L Chloride (96-108) mmol/L Carbon Dioxide (22-29) mmol/L Anion Gap (12-20) BUN (9-16) mg/dL Creatinine (0.5-1.4) mg/dL Estim Creat Clear Calc Estimated GFR POC Glucose 288 H (60-115) mg/dL Random Glucose (60-115) mg/dL Lactic Acid 2.1 H* (0.5-2.0) mmol/L Lactic Acid F/U @ 2Hr 1.9 (0.5-2.0) mmol/L Calcium (8.4-10.2) mg/dL Total Bilirubin (0.0-1.0) mg/dL AST (5-37) U/L ALT (0-40) U/L Alkaline Phosphatase (39-117) U/L Total Protein (6.5-8.0) g/dL Albumin (3.5-5.0) g/dL COVID-19 (SHANA) (Negative) COVID-19 Clin Com 10/04/21 Range/Units 22:15 WBC (4.8-10.8) X10*3/uL RBC (4.60-5.80) X10*6/uL Hgb (14.0-18.0) g/dl Hct (42.0-52.0) % MCV (80.0-98.0) fL MCH (27.0-33.0) pg MCHC (31.0-36.0) g/dl RDW (11.0-16.0) % Plt Count (160-400) X10*3/uL MPV (9.4-12.4) fL Immature Gran % (Auto) (0.0-0.4) % Neut % (Auto) (45-73) % Lymph % (Auto) (20-40) % [place] % (Auto) (2-11) % Eos % (Auto) (0-4) % Baso % (Auto) (0-2) % Lymph # (Auto) (1.2-4.9) X10*3/uL [place] # (Auto) (0.1-1.2) X10*3/uL Eos # (Auto) (0.0-0.4) X10*3/uL Baso # (Auto) (0.0-0.2) X10*3/uL Abs Immat Gran (auto) (0.00-0.03) X10*3/uL Absolute Neuts (auto) (2.0-8.3) x10*3/uL Absolute Nucleated RBC (0.0-0.012) X10*3/uL Nucleated RBC % (auto) (0.0-0.2) /100WBC Sodium (135-145) mmol/L Potassium (3.3-5.1) mmol/L Chloride (96-108) mmol/L Carbon Dioxide (22-29) mmol/L Anion Gap (12-20) BUN (9-16) mg/dL Creatinine (0.5-1.4) mg/dL Estim Creat Clear Calc Estimated GFR POC Glucose (60-115) mg/dL Random Glucose (60-115) mg/dL Lactic Acid (0.5-2.0) mmol/L Lactic Acid F/U @ 2Hr (0.5-2.0) mmol/L Calcium (8.4-10.2) mg/dL Total Bilirubin (0.0-1.0) mg/dL AST (5-37) U/L ALT (0-40) U/L Alkaline Phosphatase (39-117) U/L Total Protein (6.5-8.0) g/dL Albumin (3.5-5.0) g/dL COVID-19 (SHANA) Negative (Negative) COVID-19 Clin Com See Note Discharge Plan Discharge Clinical Impression: Cellulitis of left leg, Infected wound Patient Disposition: Admitted As Inpatient
[2021-10-04 16:28] LABS: Glucose, Whole Blood 338 mg/dL (60-115)
[2021-10-04 17:09] LABS: MANUAL DIFF FLAG NO
[2021-10-04 17:13] LABS: Basophils Absolute Auto 0.1 X10*3/uL (0.0-0.2); Basophils Percent Auto 0.7 % (0-2); Eosinophils Absolute Auto 0.4 X10*3/uL (0.0-0.4); Eosinophils Percent Auto 4.2 % (0-4); Hematocrit 32.6 % (42.0-52.0); Imm Gran Abs Auto 0.03 X10*3/uL (0.00-0.03); Imm Gran Pct Auto 0.4 % (0.0-0.4); Lymphocytes Absolute Auto 2.8 X10*3/uL (1.2-4.9); Lymphocytes Percent Auto 33.4 % (20-40); Mean Corpuscular HGB Conc 30.7 g/dl (31.0-36.0); Mean Corpuscular Hemoglobin 26.6 pg (27.0-33.0); Mean Corpuscular Volume 86.7 fL (80.0-98.0); Mean Platelet Volume 11.2 fL (9.4-12.4); Monocytes Absolute Auto 0.5 X10*3/uL (0.1-1.2); Monocytes Percent Auto 6.3 % (2-11); Neutrophils Absolute Auto 4.6 x10*3/uL (2.0-8.3); Platelet Count 291 X10*3/uL (160-400); Red Blood Count 3.76 X10*6/uL (4.60-5.80); Red Cell Distribution Width 14.8 % (11.0-16.0); White Blood Count 8.4 X10*3/uL (4.8-10.8)
--- NOTE | 2021-10-04 17:14 | PC.NURSE ---
Ashely, HCP, on phone. [phone] states pt was seen at wound care yesterday. has been on abx. has three days left. was using insulin, but was stopped and only using truliciy. sugars have been high since.
[2021-10-04 17:48] LABS: Lactic Acid 2.1 mmol/L (0.5-2.0)
[2021-10-04 17:49] LABS: Alanine Aminotransferase 11 U/L (0-40); Albumin Level 3.6 g/dL (3.5-5.0); Alkaline Phosphatase 102 U/L (39-117); Anion Gap 10 (12-20); Aspartate Amino Transferase 13 U/L (5-37); Bilirubin Total 0.3 mg/dL (0.0-1.0); Blood Urea Nitrogen 36 mg/dL (9-16); Calcium 9.4 mg/dL (8.4-10.2); Carbon Dioxide 30 mmol/L (22-29); Chloride 102 mmol/L (96-108); Creatinine Clr Calc Pharmacy 34.1; Estimated Glomerular Filt Rate 39; Glucose Random 388 mg/dL (60-115); Potassium 4.1 mmol/L (3.3-5.1); Sodium 138 mmol/L (135-145)
[2021-10-04] MEDS: Insulin Lispro 100 UNIT/ML 3 ML VIAL 8 UNIT SUBCUT (18:29)
[2021-10-04] MEDS: 0.9 % Sodium Chloride 1,000 ML 999 ML IV (18:29)
[2021-10-04 18:32] VITALS: BP 146/56; PULSE 70; RESP 18; TEMP 36.9; O2SAT 99
[2021-10-04] MEDS: cefTRIAXone sodium 1 GM in 0.9 % Sodium Chloride 50 ML IV (18:51)
[2021-10-04 19:08] LABS: Reflex Lactate? Lactic Acid Added
[2021-10-04 19:45] LABS: Glucose, Whole Blood 288 mg/dL (60-115)
[2021-10-04 19:57] LABS: ~Lactic Acid-LAB USE ONLY 1.9 mmol/L (0.5-2.0)
[2021-10-04] MEDS: vancomycin HCL 1,000 MG in 0.9 % Sodium Chloride 250 ML 270 MG IV (20:11)
[2021-10-04 20:20] VITALS: BP 161/65; PULSE 72; RESP 14; O2SAT 96
--- NOTE | 2021-10-04 20:39 | PHA.MEDREC ---
Pharmacy Consult ? Medication Reconciliation Pharmacy has completed the medication reconciliation.
[2021-10-04 22:34] VITALS: BP 160/48; PULSE 75; RESP 16; TEMP 36.6; O2SAT 99
--- NOTE | 2021-10-04 22:38 | PM.IMHP ---
History of Present Illness Date of Service: 10/04/21 Chief Complaint: Pain in the leg 80-year-old male with a past medical history of hypertension, hyperlipidemia, CVA, diabetes, history of adenocarcinoma of the lung; presented to the hospital today with a chief complaint of left leg pain redness and swelling. Patient reportedly has pain and swelling in his left leg for the past 4 days. Denies any fevers at home. Also complains of mild erythema on the right leg but not bothering as much as the left leg. Reported drainage from the left leg. Denies any numbness tingling or focal weakness. Mentions that he was recently on antibiotics. Denies any diarrhea. Denies any chest pain palpitations lightheadedness or dizziness. Review of all other systems is negative except mentioned above ER course: Per ER team patient noted to have ulcer on the left leg with surrounding erythema; patient was given empiric antibiotics. Admitted to the hospital for further management. Also noted mild ELIZABETH/. PMFSH Medical History Adenocarcinoma of right lung (~2020) COPD (chronic obstructive pulmonary disease) Dementia Diabetes Former smoker, stopped smoking in distant past History of CVA (cerebrovascular accident) (~07/2020) HTN (hypertension) Hyperlipidemia Pneumonia Pertinent family history: Parents Surgical History History of lung biopsy (~10/2020) Social History Household Members: Spouse Household Members Other:: step-son spends the night frequently Housing: Apartment Do you presently have visiting nurse or other home services: No Alcohol intake: never Patient Tobacco Use Status: Former Tobacco user Advance Directives Date on File: 05/24/21 service: No Current occupational status: retired and disabled Meds Allergies Allergy/AdvReac Type Severity Reaction Status Date / Time Penicillins [PENICILLINS] Allergy Intermediate RASH Verified 10/04/21 16:18 Active Medications: Current Medications Acetaminophen (Acetaminophen 325 Mg Tablet) 650 mg PO Q6H PRN PRN Reason: Pain, Mild (Pain Scale 1-3) Dextrose (Dextrose 50 % 25 Gm/50 Ml Syringe) 25 gm IVPUSH Q15M PRN; Protocol PRN Reason: per Hypoglycemia Standing Ord. Docusate Sodium (Docusate Sodium 100 Mg Capsule) 100 mg PO DAILY PRN PRN Reason: Constipation Enoxaparin Sodium (Enoxaparin Sodium 40 Mg/0.4 Ml Syringe) 40 mg SUBCUT Q24H [facility] Glucose (Glucose Gel 15 Gm Gel..Gram.) 15 gm PO Q15M PRN; Protocol PRN Reason: per Hypoglycemia Standing Ord. Vancomycin HCl 1,000 mg/ (Sodium Chloride) 270 mls @ 270 mls/hr IV Q12H EBER Cefepime HCl 1 gm/ Sodium (Chloride) 50 mls @ 100 mls/hr IV Q8H EBER Insulin Glargine (Insulin Glargine,Hum.Rec.Anlog 100 Unit/Ml 10 Ml Vial) 20 unit SUBCUT BEDTIME EBER Insulin Human Lispro (Insulin Lispro 100 Unit/Ml 3 Ml Vial) 0 unit SUBCUT QIDACHS EBER; Protocol Melatonin (Melatonin 3 Mg Tablet) 6 mg PO BEDTIME PRN PRN Reason: Insomnia Pharmacy Consult (Consult Rx Vancomycin Dosing) 1 each MISCELLANE DAILY PRN PRN Reason: Consult order Pharmacy Consult (Consult Rx Perform Med Rec) 1 each MISCELLANE ONCE PRN PRN Reason: Consult order Pharmacy Consult (Consult Rx Vancomycin Dosing) 1 each MISCELLANE DAILY PRN PRN Reason: Consult order Sodium Chloride (0.9 % Sodium Chloride Flush 3 Ml Syringe) 3 ml IVFLUSH QSHIFT [facility] Home Medications Medication Instructions Recorded Confirmed Last Taken Type amlodipine 10 mg tablet 10 mg PO BEDTIME 03/07/21 10/04/21 05/16/21 History aspirin 81 mg tablet,delayed 81 mg PO QAM 03/07/21 10/04/21 05/16/21 History release atorvastatin 80 mg tablet 80 mg PO BEDTIME 03/07/21 10/04/21 05/16/21 History omeprazole 20 mg capsule,delayed 20 mg PO QAM 03/07/21 10/04/21 05/16/21 History release dulaglutide 0.75 mg/0.5 mL 0.75 mg subcut QWEEK 07/07/21 10/04/21 Unknown History subcutaneous pen injector (Trulicity) empagliflozin 10 mg tablet 10 mg PO QAM 07/07/21 10/04/21 Unknown History (Jardiance) hydralazine 50 mg tablet 50 mg PO BID 07/07/21 10/04/21 Unknown History metoprolol succinate 50 mg 50 mg PO DAILY 07/07/21 10/04/21 Unknown History tablet,extended release 24 hr dulaglutide 0.75 mg/0.5 mL 0.75 mg subcut QWEEK 10/04/21 10/04/21 Unknown History [facility] Physical Exam Vital Signs and Narrative: Vital Signs: Last Vital Signs Temp 98.5 F 10/04/21 18:32 Pulse 72 10/04/21 20:20 Resp 14 10/04/21 20:20 BP 161/65 H 10/04/21 20:20 Pulse Ox 96 10/04/21 20:20 BMI result Body Mass Index 31.5 Gen: Appears be in no acute distress HEENT: NCAT, Moist mucosa. Pulmonary: Vesicular breath sounds, fair air entry CVS: Normal S1-S2 Abdomen: BS+, Soft, Nontender; Extremities: Warm well perfused; left leg is warm tender and swollen; small ulcer noted on the lateral aspect; no discharge. Right leg is mildly tender/eczematous scaly. The Neuro: Alert and awake. Results Labs CBC and Chem 7: 10/05/21 06:23 10/05/21 06:23 Labs: Laboratory Results - last 24 hr 10/04/21 10/04/21 10/04/21 16:16 17:06 17:06 MCV 86.7 MCH 26.6 L MCHC 30.7 L RDW 14.8 Plt Count 291 MPV 11.2 Immature Gran % (Auto) 0.4 Neut % (Auto) 55.0 Lymph % (Auto) 33.4 [place] % (Auto) 6.3 Eos % (Auto) 4.2 H Baso % (Auto) 0.7 Lymph # (Auto) 2.8 [place] # (Auto) 0.5 Eos # (Auto) 0.4 Baso # (Auto) 0.1 Abs Immat Gran (auto) 0.03 Absolute Neuts (auto) 4.6 Absolute Nucleated RBC 0.000 Nucleated RBC % (auto) 0.0 Anion Gap 10 L Estim Creat Clear Calc 34.1 Estimated GFR 39 POC Glucose 338 H Random Glucose 388 H* Lactic Acid Lactic Acid F/U @ 2Hr Calcium 9.4 Total Bilirubin 0.3 AST 13 ALT 11 Alkaline Phosphatase 102 Total Protein 7.0 Albumin 3.6 10/04/21 10/04/21 10/04/21 17:06 19:31 19:42 MCV MCH MCHC RDW Plt Count MPV Immature Gran % (Auto) Neut % (Auto) Lymph % (Auto) [place] % (Auto) Eos % (Auto) Baso % (Auto) Lymph # (Auto) [place] # (Auto) Eos # (Auto) Baso # (Auto) Abs Immat Gran (auto) Absolute Neuts (auto) Absolute Nucleated RBC Nucleated RBC % (auto) Anion Gap Estim Creat Clear Calc Estimated GFR POC Glucose 288 H Random Glucose Lactic Acid 2.1 H* Lactic Acid F/U @ 2Hr 1.9 Calcium Total Bilirubin AST ALT Alkaline Phosphatase Total Protein Albumin Assessment and Plan (1) Cellulitis of left leg: Status: Acute Plan 80-year-old male with a past medical history of hypertension, hyperlipidemia, CVA, diabetes, history of adenocarcinoma of the lung; presented to the hospital today with a chief complaint of left leg pain redness and swelling. Left lower extremity cellulitis/ulcer: Reported poorly discharge prior to coming to the hospital with currently open ulcer no significant discharge noted. Tender to touch. Continue IV vanc and cefepime. Id consult Will obtain venous duplex Mild ELIZABETH: Gentle IV fluids. Avoid nephrotoxins. Renally dose antibiotics. History of diabetes: Patient reports he is on Trulicity and Jardiance currently. Will defer to the day team to confirm with the patient's PCP about the patient's insulin regimen in the morning. Currently will keep the patient on Lantus 20 units plus insulin Sliding scale. Patient was hyperglycemic on presentation. Improving. History of COPD: Stable. Faustobs p.r.n. History of hypertension/hyperlipidemia: Continue home amlodipine, metoprolol, statin, aspirin DVT prophylaxis: Lovenox Code status: Full code Quality Stroke Does the patient have a stroke diagnosis?: No VTE Prior VTE?: No VTE Risk Level:: Medical - moderate - high VTE Device Contraindication: Treatment Not Indicated VTE Drug Contraindication: N/A - Med Ordered
[2021-10-04 22:40] LABS: COVID-19 Test Negative (Negative); IDNOW Serial# 55D5AD1C
[2021-10-04] MEDS: Enoxaparin Sodium 40 MG/0.4 ML SYRINGE SUBCUT (23:31)
[2021-10-04 23:37] LABS: Glucose, Whole Blood 197 mg/dL (60-115)
[2021-10-05] VITALS (7 sets, daily range): BP systolic 136–188; BP diastolic 60–77; PULSE 53–74; RESP 18–19; TEMP 36.4–37; O2SAT 93–99
[2021-10-05] MEDS: cefEPime HCl 2 GM in 0.9 % Sodium Chloride 50 ML IV ×2 (01:19→11:52)
[2021-10-05] MEDS: Acetaminophen 325 MG TABLET 650 MG PO ×3 (02:08→14:28)
[2021-10-05] MEDS: 0.9 % Sodium Chloride Flush 3 ML SYRINGE IVFLUSH ×4 (02:15→20:39)
--- NOTE | 2021-10-05 02:59 | PC.NURSE ---
Assumed care at 2302 from the main ED, alert and oriented x2-3, pleasant and cooperative, deneis any pain, endorse itch on the left leg, VSS, no fever, left leg noted with dressing dry and intact, + PP, callbell in reach. Later c/o increasing left leg pain, prn Tylenol given with good effect.
[2021-10-05] MEDS: Omeprazole 20 MG CAPSULE.DR PO (05:35)
[2021-10-05 06:29] LABS: MANUAL DIFF FLAG NO
[2021-10-05 06:35] LABS: Basophils Absolute Auto 0.1 X10*3/uL (0.0-0.2); Basophils Percent Auto 0.7 % (0-2); Eosinophils Absolute Auto 0.4 X10*3/uL (0.0-0.4); Eosinophils Percent Auto 4.5 % (0-4); Hematocrit 30.3 % (42.0-52.0); Hemoglobin 9.3 g/dl (14.0-18.0); Imm Gran Abs Auto 0.03 X10*3/uL (0.00-0.03); Imm Gran Pct Auto 0.3 % (0.0-0.4); Lymphocytes Absolute Auto 3.2 X10*3/uL (1.2-4.9); Mean Corpuscular HGB Conc 30.7 g/dl (31.0-36.0); Mean Corpuscular Hemoglobin 25.8 pg (27.0-33.0); Mean Corpuscular Volume 83.9 fL (80.0-98.0); Monocytes Absolute Auto 0.7 X10*3/uL (0.1-1.2); Monocytes Percent Auto 7.3 % (2-11); Neutrophils Absolute Auto 4.8 x10*3/uL (2.0-8.3); Neutrophils Percent Auto 52.2 % (45-73); Platelet Count 269 X10*3/uL (160-400); Red Blood Count 3.61 X10*6/uL (4.60-5.80); Red Cell Distribution Width 14.5 % (11.0-16.0); White Blood Count 9.2 X10*3/uL (4.8-10.8)
[2021-10-05 06:58] LABS: Anion Gap 11 (12-20); Blood Urea Nitrogen 30 mg/dL (9-16); Calcium 9.3 mg/dL (8.4-10.2); Carbon Dioxide 28 mmol/L (22-29); Chloride 106 mmol/L (96-108); Creatinine Clr Calc Pharmacy 44.9; Estimated Glomerular Filt Rate 53; Glucose Random 221 mg/dL (60-115); Potassium 3.8 mmol/L (3.3-5.1); Sodium 141 mmol/L (135-145)
[2021-10-05 07:23] LABS: Glucose, Whole Blood 197 mg/dL (60-115)
[2021-10-05] MEDS: Metoprolol Succinate ER 50 MG TAB.ER.24H PO (07:46)
[2021-10-05] MEDS: Aspirin Enteric Coated 81 MG TABLET.DR PO (07:46)
[2021-10-05] MEDS: hydrALAZINE HCl 50 MG TABLET PO ×2 (07:46→20:36)
[2021-10-05] MEDS: Insulin Lispro 100 UNIT/ML 3 ML VIAL SUBCUT ×4 (07:47→20:36)
[2021-10-05] MEDS: Losartan Potassium 50 MG TABLET PO (07:47)
--- NOTE | 2021-10-05 08:32 | PC.NURSE ---
Pt alert to place and self. Medicated per AUG. AM BP elevated. provider made aware. Pt upset stating he had not received pain meds all night, pt made aware that he received some at 2am. RN provided pain meds this AM. Pt LLE red. distal pulses palpable. CSM intact. Pt resting in hospital bed. DVT Duplex to be completed as US tech at bedside. call sampson and belongings within reach.
--- NOTE | 2021-10-05 10:38 | PC.NURSE ---
Skin assessment completed today. Patient has venous ulcers to left lower extremity. Ulcers cleansed with wound cleanser, silver alginate applied covered with non woven gauze and roll gauze.
--- NOTE | 2021-10-05 10:49 | PHA.PROG ---
Admission Date/Time: October 04, 2021 22:34 Indication: skin and soft tissue Weight in k kg Adjusted body weight in Kg: Cades body weight in Kg: Obesity Dosing Indication % IBW: Serum Creatinine - Last 168 Hours 10/04/21 10/05/21 17:06 06:23 Creatinine 1.71 H 1.30 Estimated CrCl and GFR - Last 168 Hours 10/04/21 10/05/21 17:06 06:23 Estim Creat Clear Calc 34.1 44.9 Estimated GFR 39 53 Vancomycin Loading Dose: 1000mg x 1 Current Vancomycin Dosing Regimen: 1000mg Q24H Vancomycin Monitoring using AUC goal of 400 - 600 range with trough as surrogate marker: 404mg/L Date and Time for next Vancomycin Level to be drawn: trough 10/06/21 @1800 Pharmacist Comments on Vancomycin Plan: Will continue to monitor, renal function has improved from 10/04 to 10/05. Vancomycin dosing will take advantage of [employer] as a clinical decision support tool that uses Bayesian modeling to calculate individual patient's pharmacokinetic parameters and forecast the patient's drug concentration time course with the target goal AUC 24 range of 400 - 600 mg/L/hr.
[2021-10-05 11:31] LABS: Glucose, Whole Blood 207 mg/dL (60-115)
--- NOTE | 2021-10-05 13:41 | P.PNIM_ITS ---
Subjective Subjective Date of Service: 10/05/21 Interval History: seen and examined this morning follow up for cellulitis reporting leg pain denies fever, chills Review of Systems Review of Systems: Yes all other systems are reviewed and are negative Constitutional Constitutional: Denies chills and Denies fever(s) Cardiovascular Cardiovascular: Denies chest pain, Denies palpitations and Denies dyspnea Respiratory Respiratory: Denies cough and Denies dyspnea Gastrointestinal Gastrointestinal: Denies abdominal pain, Denies diarrhea, Denies nausea and Denies vomiting Endocrine Endocrine: Denies palpitations Physical Exam Vital Signs: Vital Signs: Last Vital Signs Temp 98.1 F 10/05/21 10:38 Pulse 67 10/05/21 10:38 Resp 18 10/05/21 10:38 BP 137/60 10/05/21 10:38 Pulse Ox 96 10/05/21 10:38 BMI result Body Mass Index 31.5 Const: General: cooperative, no acute distress, alert and awake Nutritional Appearance: average body habitus Eyes: Pupils: Equal, round and reactive pupils present EOM: EOMs intact bilaterally Resp: Effort & Inspection: normal respiratory effort and able to speak in complete sentences Auscultation: clear to auscultation bilaterally Cardio: Rate: regular rate Heart sounds: S1 normal heart sound present and S2 normal heart sound present GI: Inspection: No distended Palpation (GI): Soft to palpation and nontender Skin: Other: Neuro: Cranial nerves: Yes Equal, round and reactive pupils present Extrem: General: Yes no pedal edema Objective Data Active Medications Acetaminophen (Acetaminophen 325 Mg Tablet) 650 mg PO Q6H PRN PRN Reason: Pain, Mild (Pain Scale 1-3) Last Admin: 10/05/21 07:46 Dose: 650 mg Documented by: GISEL Amlodipine Besylate (Amlodipine Besylate 10 Mg Tablet) 10 mg PO BEDTIME [facility]; Protocol Aspirin (Aspirin Enteric Coated 81 Mg Tablet.) 81 mg PO DAILY [facility] Last Admin: 10/05/21 07:46 Dose: 81 mg Documented by: GISEL Atorvastatin Calcium (Atorvastatin Calcium 80 Mg Tablet) 80 mg PO BEDTIME [facility] Dextrose (Dextrose 50 % 25 Gm/50 Ml Syringe) 25 gm IVPUSH Q15M PRN; Protocol PRN Reason: per Hypoglycemia Standing Ord. Docusate Sodium (Docusate Sodium 100 Mg Capsule) 100 mg PO DAILY PRN PRN Reason: Constipation Enoxaparin Sodium (Enoxaparin Sodium 40 Mg/0.4 Ml Syringe) 40 mg SUBCUT Q24H [facility] Last Admin: 10/04/21 23:31 Dose: 40 mg Documented by: JOSE FRANCISCO Glucose (Glucose Gel 15 Gm Gel..Gram.) 15 gm PO Q15M PRN; Protocol PRN Reason: per Hypoglycemia Standing Ord. Hydralazine HCl (Hydralazine Hcl 50 Mg Tablet) 50 mg PO BID [facility]; Protocol Last Admin: 10/05/21 07:46 Dose: 50 mg Documented by: GISEL Doxycycline Hyclate 100 mg/ (Sodium Chloride) 250 mls @ 166.67 mls/hr IV Q12H [facility] Insulin Glargine (Insulin Glargine,Hum.Rec.Anlog 100 Unit/Ml 10 Ml Vial) 20 unit SUBCUT BEDTIME [facility] Insulin Human Lispro (Insulin Lispro 100 Unit/Ml 3 Ml Vial) 0 unit SUBCUT QIDACHS [facility]; Protocol Last Admin: 10/05/21 11:54 Dose: 4 unit Documented by: SHELLEY Lactic Acid (Ammonium Lactate 12 % Cream 140 Gm Tube) 1 appl TOPICAL DAILY [facility]; Protocol Last Admin: 10/05/21 09:33 Dose: Not Given Documented by: GISEL Non-Admin Reason: Patient Refused Losartan Potassium (Losartan Potassium 50 Mg Tablet) 50 mg PO DAILY [facility]; Protocol Last Admin: 10/05/21 07:47 Dose: 50 mg Documented by: GISEL Melatonin (Melatonin 3 Mg Tablet) 6 mg PO BEDTIME PRN PRN Reason: Insomnia Metoprolol Succinate (Metoprolol Succinate Er 50 Mg Tab.Er.24h) 50 mg PO DAILY [facility]; Protocol Last Admin: 10/05/21 07:46 Dose: 50 mg Documented by: GISEL Omeprazole (Omeprazole 20 Mg Capsule.) 20 mg PO DAILY@0630 [facility] Last Admin: 10/05/21 05:35 Dose: 20 mg Documented by: JOSE FRANCISCO Pharmacy Consult (Consult Rx Vancomycin Dosing) 1 each MISCELLANE DAILY PRN PRN Reason: Consult order Pharmacy Consult (Consult Rx Perform Med Rec) 1 each MISCELLANE ONCE PRN PRN Reason: Consult order Pharmacy Consult (Consult Rx Vancomycin Dosing) 1 each MISCELLANE DAILY PRN PRN Reason: Consult order Sodium Chloride (0.9 % Sodium Chloride Flush 3 Ml Syringe) [facility] Last Admin: 10/05/21 07:47 Dose: 3 ml Documented by: GISEL Labs CBC & Chem 7: 10/05/21 06:23 10/05/21 06:23 Labs: Laboratory Results - last 24 hr 10/04/21 10/04/21 10/04/21 16:16 17:06 17:06 MCV 86.7 MCH 26.6 L MCHC 30.7 L RDW 14.8 Plt Count 291 MPV 11.2 Immature Gran % (Auto) 0.4 Neut % (Auto) 55.0 Lymph % (Auto) 33.4 [place] % (Auto) 6.3 Eos % (Auto) 4.2 H Baso % (Auto) 0.7 Lymph # (Auto) 2.8 [place] # (Auto) 0.5 Eos # (Auto) 0.4 Baso # (Auto) 0.1 Abs Immat Gran (auto) 0.03 Absolute Neuts (auto) 4.6 Absolute Nucleated RBC 0.000 Nucleated RBC % (auto) 0.0 Anion Gap 10 L Estim Creat Clear Calc 34.1 Estimated GFR 39 POC Glucose 338 H Random Glucose 388 H* Lactic Acid Lactic Acid F/U @ 2Hr Calcium 9.4 Total Bilirubin 0.3 AST 13 ALT 11 Alkaline Phosphatase 102 Total Protein 7.0 Albumin 3.6 COVID-19 (SHANA) COVID-19 Clin Com 10/04/21 10/04/21 10/04/21 17:06 19:31 19:42 MCV MCH MCHC RDW Plt Count MPV Immature Gran % (Auto) Neut % (Auto) Lymph % (Auto) [place] % (Auto) Eos % (Auto) Baso % (Auto) Lymph # (Auto) [place] # (Auto) Eos # (Auto) Baso # (Auto) Abs Immat Gran (auto) Absolute Neuts (auto) Absolute Nucleated RBC Nucleated RBC % (auto) Anion Gap Estim Creat Clear Calc Estimated GFR POC Glucose 288 H Random Glucose Lactic Acid 2.1 H* Lactic Acid F/U @ 2Hr 1.9 Calcium Total Bilirubin AST ALT Alkaline Phosphatase Total Protein Albumin COVID-19 (SHANA) COVID-19 [facility] Com 10/04/21 10/04/21 10/05/21 22:15 23:33 06:23 MCV 83.9 MCH 25.8 L MCHC 30.7 L RDW 14.5 Plt Count 269 MPV 11.0 Immature Gran % (Auto) 0.3 Neut % (Auto) 52.2 Lymph % (Auto) 35.0 [place] % (Auto) 7.3 Eos % (Auto) 4.5 H Baso % (Auto) 0.7 Lymph # (Auto) 3.2 [place] # (Auto) 0.7 Eos # (Auto) 0.4 Baso # (Auto) 0.1 Abs Immat Gran (auto) 0.03 Absolute Neuts (auto) 4.8 Absolute Nucleated RBC 0.000 Nucleated RBC % (auto) 0.0 Anion Gap Estim Creat Clear Calc Estimated GFR POC Glucose 197 H Random Glucose Lactic Acid Lactic Acid F/U @ 2Hr Calcium Total Bilirubin AST ALT Alkaline Phosphatase Total Protein Albumin COVID-19 (SHANA) Negative COVID-19 [facility] See Note 10/05/21 10/05/21 10/05/21 06:23 07:11 10:59 MCV MCH MCHC RDW Plt Count MPV Immature Gran % (Auto) Neut % (Auto) Lymph % (Auto) [place] % (Auto) Eos % (Auto) Baso % (Auto) Lymph # (Auto) [place] # (Auto) Eos # (Auto) Baso # (Auto) Abs Immat Gran (auto) Absolute Neuts (auto) Absolute Nucleated RBC Nucleated RBC % (auto) Anion Gap 11 L Estim Creat Clear Calc 44.9 Estimated GFR 53 POC Glucose 197 H 207 H Random Glucose 221 H D Lactic Acid Lactic Acid F/U @ 2Hr Calcium 9.3 Total Bilirubin AST ALT Alkaline Phosphatase Total Protein Albumin COVID-19 (SHANA) COVID-19 [employer] Com Microbiology Microbiology Results: Microbiology 10/04/21 20:49 Gram Stain - Final Calf Left Routine Culture - Preliminary Culture in progress. Assessment and Plan (1) Cellulitis of left leg: Status: Acute Plan This is an 80-year-old male with a past medical history of hypertension, hyperlipidemia, CVA, diabetes, history of adenocarcinoma of the lung; presented to the hospital today with a chief complaint of left leg pain redness and swelli ng.? Left lower extremity cellulitis/dermatitis multiple admissions for the same will de-escalate abx no evidence of sepsis has been treated with topical steroids no leg edema at this time Doxycycline, wound care consult, lac hydrin cream should follow in wound care clinic on discharge ELIZABETH:? resolved with IVF diabetes:? on Trulicity and Jardiance, NF placed on hold 70/30 insulin d/c on last admission due to hypoglycemia episodes continue Lantus 20 units continue SSI follow POCs History of COPD:? Stable.? DuoNebs p.r.n. hypertension bp stable continue home meds, hydralazine, norvasc, losartan, metoprolol hyperlipidemia: continue statin DVT prophylaxis:? Lovenox Code status:? Full code requires on going inpatient Hospitalization secondary to cellulitis/ left lower extremity wound requiring wound care Quality Stroke Does the patient have a stroke diagnosis?: No VTE Prior VTE?: No VTE Risk Level:: Medical - moderate - high VTE Device Contraindication: Treatment Not Indicated VTE Drug Contraindication: N/A - Med Ordered
--- NOTE | 2021-10-05 14:20 | W.PM.IDCN ---
History of Present Illness Data of Consult Service Date: 10/05/21 Requesting physician: Sakshi Ruiz Primary Care Provider: Unknown Physician HPI Reason for consult: leg redness,left He presents with four days discomfort,redness and swelling in left leg. He has no fever or chills He has diabetes Review of Systems Review of Systems: Yes all other systems are reviewed and are negative PMFSH Past Medical History Medical History Adenocarcinoma of right lung (~2020) COPD (chronic obstructive pulmonary disease) Dementia Diabetes Former smoker, stopped smoking in distant past History of CVA (cerebrovascular accident) (~07/2020) HTN (hypertension) Hyperlipidemia Pneumonia Family History Family history: reviewed and not pertinent Surgical History Surgical History History of lung biopsy (~10/2020) Social History Social History Household Members: Spouse Household Members Other:: step-son spends the night frequently Housing: Apartment Do you presently have visiting nurse or other home services: No Alcohol intake: never Patient Tobacco Use Status: Former Tobacco user Use of substances other than those prescribed or required for medical reasons: No Have you been hit, kicked, punched, or otherwise hurt by someone within the past year? If so, by whom?: No Do you feel safe in your current relationship?: Yes Is there a partner from a previous relationship who is making you feel unsafe now?: No Are you made to feel afraid or neglected: No Advance Directives: Yes Advance Directives on File: Yes Advance Directives Date on File: 05/24/21 Do you have thoughts of harming others: None Do you have a plan to hurt others: No Plan Recently lost weight without trying: No Eating poorly because of decreased appetite: No Nutrition Risks: No Nutritional Risk Poor oral hygiene: No service: No Current occupational status: retired and disabled Meds Allergies Allergy/AdvReac Type Severity Reaction Status Date / Time Penicillins [PENICILLINS] Allergy Intermediate RASH Verified 10/04/21 16:18 Active Medications: Current Medications Acetaminophen (Acetaminophen 325 Mg Tablet) 650 mg PO Q6H PRN PRN Reason: Pain, Mild (Pain Scale 1-3) Last Admin: 10/05/21 07:46 Dose: 650 mg Documented by: Amlodipine Besylate (Amlodipine Besylate 10 Mg Tablet) 10 mg PO BEDTIME EBER; Protocol Aspirin (Aspirin Enteric Coated 81 Mg Tablet.Dr) 81 mg PO DAILY [facility] Last Admin: 10/05/21 07:46 Dose: 81 mg Documented by: Atorvastatin Calcium (Atorvastatin Calcium 80 Mg Tablet) 80 mg PO BEDTIME EBER Dextrose (Dextrose 50 % 25 Gm/50 Ml Syringe) 25 gm IVPUSH Q15M PRN; Protocol PRN Reason: per Hypoglycemia Standing Ord. Docusate Sodium (Docusate Sodium 100 Mg Capsule) 100 mg PO DAILY PRN PRN Reason: Constipation Enoxaparin Sodium (Enoxaparin Sodium 40 Mg/0.4 Ml Syringe) 40 mg SUBCUT Q24H [facility] Last Admin: 10/04/21 23:31 Dose: 40 mg Documented by: Glucose (Glucose Gel 15 Gm Gel..Gram.) 15 gm PO Q15M PRN; Protocol PRN Reason: per Hypoglycemia Standing Ord. Hydralazine HCl (Hydralazine Hcl 50 Mg Tablet) 50 mg PO BID EBER; Protocol Last Admin: 10/05/21 07:46 Dose: 50 mg Documented by: Doxycycline Hyclate 100 mg/ (Sodium Chloride) 250 mls @ 166.67 mls/hr IV Q12H [facility] Insulin Glargine (Insulin Glargine,Hum.Rec.Anlog 100 Unit/Ml 10 Ml Vial) 20 unit SUBCUT BEDTIME EBER Insulin Human Lispro (Insulin Lispro 100 Unit/Ml 3 Ml Vial) 0 unit SUBCUT QIDACHS EBER; Protocol Last Admin: 10/05/21 11:54 Dose: 4 unit Documented by: Lactic Acid (Ammonium Lactate 12 % Cream 140 Gm Tube) 1 appl TOPICAL DAILY EBER; Protocol Last Admin: 10/05/21 09:33 Dose: Not Given Documented by: Losartan Potassium (Losartan Potassium 50 Mg Tablet) 50 mg PO DAILY [facility]; Protocol Last Admin: 10/05/21 07:47 Dose: 50 mg Documented by: Melatonin (Melatonin 3 Mg Tablet) 6 mg PO BEDTIME PRN PRN Reason: Insomnia Metoprolol Succinate (Metoprolol Succinate Er 50 Mg Tab.Er.24h) 50 mg PO DAILY [facility]; Protocol Last Admin: 10/05/21 07:46 Dose: 50 mg Documented by: Omeprazole (Omeprazole 20 Mg Capsule.) 20 mg PO DAILY@0630 [facility] Last Admin: 10/05/21 05:35 Dose: 20 mg Documented by: Pharmacy Consult (Consult Rx Vancomycin Dosing) 1 each MISCELLANE DAILY PRN PRN Reason: Consult order Pharmacy Consult (Consult Rx Perform Med Rec) 1 each MISCELLANE ONCE PRN PRN Reason: Consult order Pharmacy Consult (Consult Rx Vancomycin Dosing) 1 each MISCELLANE DAILY PRN PRN Reason: Consult order Sodium Chloride (0.9 % Sodium Chloride Flush 3 Ml Syringe) 3 ml IVFLUSH QSHIFT [facility] Last Admin: 10/05/21 07:47 Dose: 3 ml Documented by: Home Medications Medication Instructions Recorded Confirmed Last Taken Type amlodipine 10 mg tablet 10 mg PO BEDTIME 03/07/21 10/04/21 05/16/21 History aspirin 81 mg tablet,delayed 81 mg PO QAM 03/07/21 10/04/21 05/16/21 History release atorvastatin 80 mg tablet 80 mg PO BEDTIME 03/07/21 10/04/21 05/16/21 History omeprazole 20 mg capsule,delayed 20 mg PO QAM 03/07/21 10/04/21 05/16/21 History release dulaglutide 0.75 mg/0.5 mL 0.75 mg SUBCUT QWEEK 07/07/21 10/04/21 Unknown History subcutaneous pen injector (Trulicity) empagliflozin 10 mg tablet 10 mg PO QAM 07/07/21 10/04/21 Unknown History (Jardiance) hydralazine 50 mg tablet 50 mg PO BID 07/07/21 10/04/21 Unknown History metoprolol succinate 50 mg 50 mg PO DAILY 07/07/21 10/04/21 Unknown History tablet,extended release 24 hr dulaglutide 0.75 mg/0.5 mL 0.75 mg SUBCUT QWEEK 10/04/21 10/04/21 Unknown History subcutaneous pen injector (Trulicity) Physical Exam Vital Signs: Vital Signs: Last Vital Signs Temp 98.1 F 10/05/21 10:38 Pulse 67 10/05/21 10:38 Resp 18 10/05/21 10:38 BP 137/60 10/05/21 10:38 Pulse Ox 96 10/05/21 10:38 BMI result Body Mass Index 31.5 Const: General: cooperative Eyes: General: appearance normal, both eyes and all related structures Pupils: Equal, round and reactive pupils present Resp: Effort & Inspection: normal respiratory effort Cardio: Rate: regular rate Rhythm: regular rhythm GI: Palpation (GI): Soft to palpation and nontender Skin: General skin exam: no rashes or lesions noted Neuro: Cranial nerves: Yes Equal, round and reactive pupils present Extrem: Other: improved redness LLE Results Labs CBC & Chem 7: 10/05/21 06:23 10/05/21 06:23 Labs: Short CBC 10/04/21 10/05/21 Range/Units 17:06 06:23 WBC 8.4 9.2 (4.8-10.8) X10*3/uL Hgb 10.0 L 9.3 L (14.0-18.0) g/dl Hct 32.6 L 30.3 L (42.0-52.0) % Plt Count 291 269 (160-400) X10*3/uL BMP 10/04/21 10/05/21 17:06 06:23 Sodium 138 141 Potassium 4.1 3.8 Chloride 102 106 Carbon Dioxide 30 H 28 BUN 36 H 30 H Creatinine 1.71 H 1.30 Calcium 9.4 9.3 Liver Function 10/04/21 Range/Units 17:06 Total Bilirubin 0.3 (0.0-1.0) mg/dL AST 13 (5-37) U/L ALT 11 (0-40) U/L Alkaline Phosphatase 102 (39-117) U/L Albumin 3.6 (3.5-5.0) g/dL Microbiology Microbiology Results: Microbiology 10/04/21 20:49 Calf Left Gram Stain - Final 10/04/21 20:49 Calf Left Routine Culture - Preliminary Culture in progress. Assessment and Plan (1) Cellulitis of left leg: Status: Acute There is probably staph or strep Cellulitis is quite superficial at this point Probable venous stasis ulcer (2) Infected wound: Status: Acute Plan Would continue Doxycycline May switch to po in day or two for 10 days See Wound Clinic outpatient for venous stasis wound care
[2021-10-05] MEDS: Doxycycline Hyclate 100 MG in 0.9 % Sodium Chloride 250 ML 166.67 MG IV (14:30)
[2021-10-05 16:11] LABS: Glucose, Whole Blood 222 mg/dL (60-115)
--- NOTE | 2021-10-05 16:44 | PC.NURSE ---
Pt ambulated to BR using walker. C/o pain with ambulation to left leg. Dressings applied to left lower leg by wound nurse
[2021-10-05 20:10] LABS: Glucose, Whole Blood 207 mg/dL (60-115)
[2021-10-05] MEDS: Atorvastatin Calcium 80 MG TABLET PO (20:35)
[2021-10-05] MEDS: amLODIPine Besylate 10 MG TABLET PO (20:35)
[2021-10-05] MEDS: Insulin Glargine,Hum.rec.anlog 100 UNIT/ML 10 ML VIAL 20 UNIT SUBCUT (20:36)
[2021-10-05] MEDS: Enoxaparin Sodium 40 MG/0.4 ML SYRINGE SUBCUT (21:33)
[2021-10-06] MEDS: Doxycycline Hyclate 100 MG in 0.9 % Sodium Chloride 250 ML 166.67 MG IV ×2 (02:03→15:35)
[2021-10-06 03:33] VITALS: BP 134/62; PULSE 64; RESP 18; TEMP 37.1; O2SAT 95
[2021-10-06] MEDS: Omeprazole 20 MG CAPSULE.DR PO (05:57)
[2021-10-06 08:00] VITALS: BP 139/55; PULSE 71; RESP 18; TEMP 36.6; O2SAT 94
[2021-10-06 08:05] LABS: Glucose, Whole Blood 144 mg/dL (60-115)
[2021-10-06] MEDS: hydrALAZINE HCl 50 MG TABLET PO ×2 (08:55→21:31)
[2021-10-06] MEDS: 0.9 % Sodium Chloride Flush 3 ML SYRINGE IVFLUSH (08:56)
[2021-10-06] MEDS: Losartan Potassium 50 MG TABLET PO (08:56)
[2021-10-06] MEDS: Aspirin Enteric Coated 81 MG TABLET.DR PO (08:56)
[2021-10-06] MEDS: Metoprolol Succinate ER 50 MG TAB.ER.24H PO (08:56)
--- NOTE | 2021-10-06 08:58 | MHC.CM.PN ---
Addendum entered by Nessa Ortega 10/06/21 09:03: PATIENT'S PRIMARY LANGUAGE IS [place]. 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 WHEN ASKED IF PATIENT WANTS T/W TO CALL HIS DAUGHTER FOR ANY QUESTIONS, HE DENIES Original Note: PATIENT LIVES WITH DAUGHTER AND GRANDSON. GRANDSON ASSISTS WITH TRANSPORT NEEDS. NO DME IN THE HOME. PATIENT STATES THAT HE HAS HAD A FEW VACCINES BUT CANNOT REMEMBER IF HE HAS BEEN COVID VACCINATED. HE ALSO STATES THAT HE MAY HAVE A VNA SERVICE IN THE HOME BUT IS UNABLE TO RECALL IOF THEY STILL VISIT OR NOT. HE DOES KNOW HIS NAME, , AND WHERE HE IS ( [facility] ). HE DOES NOT KNOW THE DAY OR MONTH BUT DOES LOOK AT HIS WATCH WHEN ASKED FOR THIS INFORMATION. 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 CASE MANAGEMENT FOLLOWING HCP ON FILE AND VERIFIED (STEP DAUGHTER JOLYNN [phone]) IMM 10/06 IN CHART
--- NOTE | 2021-10-06 11:25 | P.PNIM_ITS ---
Subjective Subjective Date of Service: 10/06/21 Review of Systems follow up for cellulitis reporting leg pain denies fever, chills Physical Exam Vital Signs: Vital Signs: Last Vital Signs Temp 97.8 F 10/06/21 08:00 Pulse 71 10/06/21 08:00 Resp 18 10/06/21 08:00 BP 139/55 L 10/06/21 08:00 Pulse Ox 94 10/06/21 08:00 BMI result Body Mass Index 31.5 Appearing in no acute distress heart regular rate rhythm, clear S1, S2 positive bowel sounds, abdomen is soft, nontender neuro patient is alert x3, no focal deficits Dry, dermatitis to lower extremities with chronic would to LLE, lateral aspect, pink wound bed, no eschar no drainage or odor, quarter size Objective Data Active Medications Acetaminophen (Acetaminophen 325 Mg Tablet) 650 mg PO Q6H PRN PRN Reason: Pain, Mild (Pain Scale 1-3) Last Admin: 10/05/21 14:28 Dose: 650 mg Documented by: SHELLEY Amlodipine Besylate (Amlodipine Besylate 10 Mg Tablet) 10 mg PO BEDTIME EBER; P rotocol Last Admin: 10/05/21 20:35 Dose: 10 mg Documented by: KEO Aspirin (Aspirin Enteric Coated 81 Mg Tablet.) 81 mg PO DAILY [facility] Last Admin: 10/06/21 08:56 Dose: 81 mg Documented by: DONALD Atorvastatin Calcium (Atorvastatin Calcium 80 Mg Tablet) 80 mg PO BEDTIME [facility] Last Admin: 10/05/21 20:35 Dose: 80 mg Documented by: KEO Dextrose (Dextrose 50 % 25 Gm/50 Ml Syringe) 25 gm IVPUSH Q15M PRN; Protocol PRN Reason: per Hypoglycemia Standing Ord. Docusate Sodium (Docusate Sodium 100 Mg Capsule) 100 mg PO DAILY PRN PRN Reason: Constipation Enoxaparin Sodium (Enoxaparin Sodium 40 Mg/0.4 Ml Syringe) 40 mg SUBCUT Q24H [facility] Last Admin: 10/05/21 21:33 Dose: 40 mg Documented by: KEO Glucose (Glucose Gel 15 Gm Gel..Gram.) 15 gm PO Q15M PRN; Protocol PRN Reason: per Hypoglycemia Standing Ord. Hydralazine HCl (Hydralazine Hcl 50 Mg Tablet) 50 mg PO BID EBER; Protocol Last Admin: 10/06/21 08:55 Dose: 50 mg Documented by: DONALD Doxycycline Hyclate 100 mg/ (Sodium Chloride) 250 mls @ 166.67 mls/hr IV Q12H [facility] Last Infusion: 10/06/21 03:39 Dose: 0 mls/hr Documented by: KEO Insulin Glargine (Insulin Glargine,Hum.Rec.Anlog 100 Unit/Ml 10 Ml Vial) 20 unit SUBCUT BEDTIME [facility] Last Admin: 10/05/21 20:36 Dose: 20 unit Documented by: KEO Insulin Human Lispro (Insulin Lispro 100 Unit/Ml 3 Ml Vial) 0 unit SUBCUT QIDACHS [facility]; Protocol Last Admin: 10/06/21 08:07 Dose: Not Given Documented by: DONALD Non-Admin Reason: No Insulin Coverage Lactic Acid (Ammonium Lactate 12 % Cream 140 Gm Tube) 1 appl TOPICAL DAILY [facility]; Protocol Last Admin: 10/06/21 08:57 Dose: Not Given Documented by: DONALD Non-Admin Reason: Med Not Available Losartan Potassium (Losartan Potassium 50 Mg Tablet) 50 mg PO DAILY [facility]; Protocol Last Admin: 10/06/21 08:56 Dose: 50 mg Documented by: DONALD Melatonin (Melatonin 3 Mg Tablet) 6 mg PO BEDTIME PRN PRN Reason: Insomnia Metoprolol Succinate (Metoprolol Succinate Er 50 Mg Tab.Er.24h) 50 mg PO DAILY [facility]; Protocol Last Admin: 10/06/21 08:56 Dose: 50 mg Documented by: DONALD Omeprazole (Omeprazole 20 Mg Capsule.Dr) 20 mg PO DAILY@0630 [facility] Last Admin: 10/06/21 05:57 Dose: 20 mg Documented by: KEO Pharmacy Consult (Consult Rx Vancomycin Dosing) 1 each MISCELLANE DAILY PRN PRN Reason: Consult order Pharmacy Consult (Consult Rx Perform Med Rec) 1 each MISCELLANE ONCE PRN PRN Reason: Consult order Pharmacy Consult (Consult Rx Vancomycin Dosing) 1 each MISCELLANE DAILY PRN PRN Reason: Consult order Sodium Chloride (0.9 % Sodium Chloride Flush 3 Ml Syringe) 3 ml IVFLUSH QSHIFT [facility] Last Admin: 10/06/21 08:56 Dose: 3 ml Documented by: DONALD Labs CBC & Chem 7: 10/05/21 06:23 10/05/21 06:23 Labs: Laboratory Results - last 24 hr 10/05/21 10/05/21 10/05/21 10:59 15:24 19:43 POC Glucose 207 H 222 H 207 H 10/06/21 08:00 POC Glucose 144 H Microbiology Microbiology Results: Microbiology 10/04/21 20:49 Gram Stain - Final Calf Left Routine Culture - Final 10/04/21 18:47 Blood Culture - Preliminary Blood - Venous No growth after 24 hours. 10/04/21 18:47 Blood Culture - Preliminary Blood - Venous No growth after 24 hours. Assessment and Plan (1) Cellulitis of left leg: Status: Acute Plan This is an 80-year-old male with a past medical history of hypertension, hyperlipidemia, CVA, diabetes, history of adenocarcinoma of the lung; presented to the hospital today with a chief complaint of left leg pain redness and swelling.? Left lower extremity cellulitis/dermatitis multiple admissions for the same no evidence of sepsis has been treated with topical steroids no leg edema at this time will change to oral Doxycycline tomorrow as per ID and continue for 10day, Lac hydrin cream should follow in wound care clinic on discharge ELIZABETH resolved with IVF diabetes on Heather and Fransico, NF placed on hold 70/30 insulin d/c on last admission due to hypoglycemia episodes continue Lantus 20 units continue SSI follow POCs History of COPD Stable.? DuoNebs p.r.n. hypertension bp stable continue home meds, hydralazine, norvasc, losartan, metoprolol hyperlipidemia continue statin DVT prophylaxis:? Lovenox Code status:? Full code Attending Dr. Barker requires on going inpatient Hospitalization secondary to cellulitis/ left lower extremity wound requiring wound care and IV antibiotics Quality Stroke Does the patient have a stroke diagnosis?: No VTE Prior VTE?: No VTE Risk Level:: Medical - moderate - high VTE Device Contraindication: Treatment Not Indicated VTE Drug Contraindication: N/A - Med Ordered
[2021-10-06 11:40] LABS: Glucose, Whole Blood 397 mg/dL (60-115)
[2021-10-06 11:43] VITALS: BP 146/58; PULSE 53; RESP 18; TEMP 36.5; O2SAT 100
[2021-10-06] MEDS: Insulin Lispro 100 UNIT/ML 3 ML VIAL SUBCUT ×3 (12:01→21:28)
[2021-10-06 15:04] VITALS: BP 142/62; PULSE 51; RESP 18; TEMP 36.6; O2SAT 100
[2021-10-06 15:43] LABS: Glucose, Whole Blood 251 mg/dL (60-115)
[2021-10-06 18:43] LABS: Vancomycin Trough < 3.0 mcg/mL (10.0-20.0)
[2021-10-06 19:28] VITALS: BP 154/66; PULSE 71; RESP 18; TEMP 36.8; O2SAT 99
[2021-10-06 20:31] LABS: Glucose, Whole Blood 171 mg/dL (60-115)
[2021-10-06] MEDS: Enoxaparin Sodium 40 MG/0.4 ML SYRINGE SUBCUT (21:23)
[2021-10-06] MEDS: Insulin Glargine,Hum.rec.anlog 100 UNIT/ML 10 ML VIAL 20 UNIT SUBCUT (21:29)
[2021-10-06] MEDS: amLODIPine Besylate 10 MG TABLET PO (21:31)
[2021-10-06] MEDS: Atorvastatin Calcium 80 MG TABLET PO (21:31)
[2021-10-06 23:37] VITALS: BP 141/65; PULSE 75; RESP 18; TEMP 36.9; O2SAT 95
[2021-10-07] MEDS: 0.9 % Sodium Chloride Flush 3 ML SYRINGE IVFLUSH ×2 (01:07→08:32)
[2021-10-07] MEDS: Doxycycline Hyclate 100 MG in 0.9 % Sodium Chloride 250 ML 166.67 MG IV (01:08)
[2021-10-07] MEDS: diphenhydrAMINE HCL 25 MG TABLET PO (01:43)
--- NOTE | 2021-10-07 03:17 | PC.NURSE ---
PT C/O itching to bilateral lower legs and face. No rash, notified and new order for Benadryl one time. PT lower legs still itching but improved upon reassessment.
[2021-10-07 03:38] VITALS: BP 135/62; PULSE 72; RESP 18; TEMP 36.7; O2SAT 95
[2021-10-07 08:00] VITALS: BP 134/63; PULSE 71; RESP 18; TEMP 36.9; O2SAT 95
[2021-10-07 08:05] LABS: Glucose, Whole Blood 174 mg/dL (60-115)
[2021-10-07] MEDS: Losartan Potassium 50 MG TABLET PO (08:31)
[2021-10-07] MEDS: Metoprolol Succinate ER 50 MG TAB.ER.24H PO (08:31)
[2021-10-07] MEDS: Aspirin Enteric Coated 81 MG TABLET.DR PO (08:31)
[2021-10-07] MEDS: Insulin Lispro 100 UNIT/ML 3 ML VIAL SUBCUT ×2 (08:31→11:57)
[2021-10-07] MEDS: hydrALAZINE HCl 50 MG TABLET PO (08:31)
[2021-10-07] MEDS: Acetaminophen 325 MG TABLET 650 MG PO (08:35)
--- NOTE | 2021-10-07 10:47 | MHC.CM.PN ---
PT MEDICALLY CLEARED FOR D/C HOME W/[facility], [employer] HRS AND 24HR FAMILY SUPPORT, PT ACTIVE W/[facility] AND NEXT APPT IS Friday10/09/21 FAMILY WILL TRANSPORT PT HOME
--- NOTE | 2021-10-07 10:58 | PM.DS ---
DS: Providers Provider Date of Service: 10/07/21 Date of admission: 10/04/21 22:34 Primary care physician: Grant Carlson MD Consults: 10/04/21 22:34 Consult to Infectious Diseases Routine Consulting Provider: Thuy Gale Reason for consultation: cellulitis/ulcer Attending physician on discharge: Xander Jacome Discharging clinician: Nisha Conner DS: Diagnosis Discharge Diagnosis (1) Cellulitis of left leg: Status: Acute DS: Summary Hospital Course Hospital Course: HP as per admitting provider 80-year-old male with a past medical history of hypertension, hyperlipidemia, CVA, diabetes, history of adenocarcinoma of the lung; presented to the hospital today with a chief complaint of left leg pain redness and swelling.?Patient reportedly has pain and swelling in his left leg for the past 4 days.? Denies any fevers at home.? Also complains of mild erythema on the right leg but not bothering as much as the left leg.? Reported drainage from the left leg.?Denies any numbness tingling or focal weakness.?Mentions that he was recently on antibiotics.?Denies any diarrhea.?Denies any chest pain palpitations lightheadedness or dizziness.?Review of all other systems is negative except mentioned above. ER course: Per ER team patient noted to have ulcer on the left leg with surrounding erythema; patient was given empiric antibiotics.? Admitted to the hospital for further management.? Also noted mild ELIZABETH/ . Left lower extremity cellulitis/dermatitis multiple admissions for the same no evidence of sepsis has been treated with topical steroids no leg edema at this time will change to oral Doxycycline tomorrow for 10 days continue lac hydrin for dry skin should follow in wound care clinic on discharge ELIZABETH resolved with IVF diabetes on Trulicity and Jardiance, NF placed on hold continue Lantus 20 units History of COPD Stable.?no exacerbation hypertension bp remained stable continue home meds, hydralazine, norvasc, losartan, metoprolol hyperlipidemia continue statin Time Spent with Patient Time attestation: Total time spent providing and/or coordinating discharge services: Discharge coordination time: Greater than 30 minutes Quality: Safe Use of Opioids Does Pt have an Active Cancer Diagnosis on the Problem List?: No Quality: Stroke Does the patient have a stroke diagnosis?: No Physical Exam Vital Signs: Vital Signs: Last Vital Signs Temp 98.5 F 10/07/21 08:00 Pulse 71 10/07/21 08:00 Resp 18 10/07/21 08:00 BP 134/63 10/07/21 08:00 Pulse Ox 95 10/07/21 08:00 BMI result Body Mass Index 31.5 Appearing in no acute distress head is normocephalic atraumatic eyes pupils are PERRLA sclera is anicteric mouth throat mucous membranes are intact and moist neck is supple no lymphadenopathy, no JVD noted lung sounds are clear to auscultation heart regular rate rhythm, clear S1, S2 positive bowel sounds, abdomen is soft, nontender neuro patient is alert x3, no focal deficits Dry, dermatitis to lower extremities with chronic would to LLE, lateral aspect, pink wound bed, no eschar no drainage or odor, quarter size DS: Data Data Completed and Pending Labs on day of discharge: Laboratory Results - last 24 hr 10/06/21 10/06/21 10/06/21 11:26 15:08 18:11 POC Glucose 397 H* 251 H Vancomycin Trough < 3.0 L 10/06/21 10/07/21 19:44 07:59 POC Glucose 171 H 174 H Vancomycin Trough Preliminary micro results at discharge 10/04/21 18:47 Blood Culture - Preliminary Blood - Venous No growth after 48 hours. 10/04/21 18:47 Blood Culture - Preliminary Blood - Venous No growth after 48 hours. Discharge Plan Discharge Anticipated Discharge Date/Time: 10/07/21 10:53 Patient Disposition: Home Health Service Discharge Diagnosis: Cellulitis ELIZABETH Referrals: [facility] [Other] - 1 Day (RESUMPTION OF CARE) [facility] [Other] - 3-5 Days (NEXT APPT Friday10/09/21) Name,MD Grant [Primary Care Provider] - 1 Week Discharge Medications: New doxycycline hyclate 100 mg tablet 100 mg PO BID Qty: 20 0RF Continued atorvastatin 80 mg tablet 80 mg PO BEDTIME 0RF aspirin 81 mg tablet,delayed release (DR/EC) 81 mg PO QAM 0RF amlodipine 10 mg tablet 10 mg PO BEDTIME 0RF omeprazole 20 mg capsule,delayed release(DR/EC) 20 mg PO QAM 0RF Jardiance 10 mg Tablet 10 mg PO QAM 0RF Trulicity 0.75 mg/0.5 mL Pen Injector 0.75 mg SUBCUT QWEEK 0RF hydralazine 50 mg Tablet 50 mg PO BID 0RF metoprolol succinate 50 mg Tablet Extended Release 24 Hr 50 mg PO DAILY 0RF Trulicity 0.75 mg/0.5 mL pen injector 0.75 mg subcut QWEEK 0RF losartan 50 mg Tablet 50 mg PO DAILY Qty: 0 0RF Rx Instructions: THIS WAS JUST RECENTLY INCREASED TO 100 MG (DME) compr.stocking,knee,long,large Misc See Rx Instructions .Route Qty: 12 0RF Rx Instructions: As directed (DME) compress.stocking,knee,reg,lrg Misc See Rx Instructions .Route Qty: 2 0RF Rx Instructions: As directed Discharge Orders: Discharge Order (Routine); Ordered 10/07/21 Ordered By: Nisha Conner Diet: advance to usual diet Activity on Discharge: As tolerated Stand Alone Forms: Patient Portal Discharge page Care Plan Goals: Continue with the wound care clinic for wound care Health Concerns: Cellulitis ELIZABETH Plan of Treatment: follow-up with primary care provider as needed Take all medications as prescribed Assessment: See discharge summary
[2021-10-07 11:40] LABS: Glucose, Whole Blood 253 mg/dL (60-115)
[2021-10-07 11:42] VITALS: BP 144/67; PULSE 65; RESP 18; TEMP 37.1; O2SAT 96
== END 2021-10-07 15:56 | disposition home health service (06) | DRG 603 ==
LOC: HO.ED 16:31 → HO.EDOVER 22:40 → HO.S3 10-05 09:24
PROVIDERS: Physician Assistant Medical; Admitting Provider Hospitalist; Emergency Provider Internal Medicine; PCP Internal Medicine Geriatric Medicine; Visit Provider Nurse Practitioner Acute Care
DX: L03.116 Cellulitis of left lower limb (principal); I87.312 Chronic venous hypertension (idiopathic) with ulcer of left lower extremity; N17.9 Acute kidney failure, unspecified; L97.829 Non-pressure chronic ulcer of other part of left lower leg with unspecified severity; F03.90 Unspecified dementia, unspecified severity, without behavioral disturbance, psychotic disturbance, mood disturbance, and anxiety; E78.5 Hyperlipidemia, unspecified; E11.65 Type 2 diabetes mellitus with hyperglycemia; J44.9 Chronic obstructive pulmonary disease, unspecified; Z20.822 Contact with and (suspected) exposure to COVID-19; Z86.73 Personal history of transient ischemic attack (TIA), and cerebral infarction without residual deficits; Z87.01 Personal history of pneumonia (recurrent); Z87.891 Personal history of nicotine dependence; Z88.0 Allergy status to penicillin; Z79.82 Long term (current) use of aspirin; Z79.899 Other long term (current) drug therapy
CPT/HCPCS: 36415; 80048; 80053; 80202; 82947; 83605; 85025; 87040; 87071; 87205; 87635; 93970; 96361; 96374; 96375; 99285; J0692; J0696; J1650; J3370; Q0163

== ENCOUNTER 2021-12-12 20:38 | Emergency (ER) | payer OTHER, SELFPAY ==
[2021-12-12 20:44] VITALS: BP 137/47; PULSE 74; RESP 18; TEMP 37.2; O2SAT 97; BMI 34.7
[2021-12-12 22:58] VITALS: BP 153/51; PULSE 82; RESP 16; O2SAT 98
[2021-12-12 23:11] LABS: MANUAL DIFF FLAG NO
[2021-12-12 23:13] LABS: Basophils Absolute Auto 0.1 X10*3/uL (0.0-0.2); Basophils Percent Auto 0.5 % (0-2); Eosinophils Absolute Auto 0.4 X10*3/uL (0.0-0.4); Eosinophils Percent Auto 3.8 % (0-4); Hematocrit 32.3 % (42.0-52.0); Hemoglobin 9.6 g/dl (14.0-18.0); Imm Gran Abs Auto 0.03 X10*3/uL (0.00-0.03); Imm Gran Pct Auto 0.3 % (0.0-0.4); Lymphocytes Absolute Auto 2.9 X10*3/uL (1.2-4.9); Lymphocytes Percent Auto 30.8 % (20-40); Mean Corpuscular HGB Conc 29.7 g/dl (31.0-36.0); Mean Corpuscular Hemoglobin 24.5 pg (27.0-33.0); Mean Corpuscular Volume 82.4 fL (80.0-98.0); Mean Platelet Volume 10.2 fL (9.4-12.4); Monocytes Absolute Auto 0.7 X10*3/uL (0.1-1.2); Monocytes Percent Auto 7.7 % (2-11); Neutrophils Absolute Auto 5.4 x10*3/uL (2.0-8.3); Neutrophils Percent Auto 56.9 % (45-73); Platelet Count 307 X10*3/uL (160-400); Red Blood Count 3.92 X10*6/uL (4.60-5.80); Red Cell Distribution Width 15.5 % (11.0-16.0); White Blood Count 9.4 X10*3/uL (4.8-10.8)
--- NOTE | 2021-12-12 23:22 | PC.NURSE ---
BLE cellulitis outlined with surgical marker. Left lower leg is weeping yellow drainage.
[2021-12-12 23:28] LABS: Anion Gap 13 (12-20); Blood Urea Nitrogen 30 mg/dL (9-16); Calcium 8.8 mg/dL (8.4-10.2); Carbon Dioxide 27 mmol/L (22-29); Chloride 105 mmol/L (96-108); Estimated Glomerular Filt Rate 31; Glucose Random 256 mg/dL (60-115); Sodium 141 mmol/L (135-145)
--- NOTE | 2021-12-12 23:29 | ED_ITS ---
HPI - General Adult General Chief complaint: General Medical Stated complaint: bilateral legs and feet are swollen Time Seen by Provider: 12/12/21 23:29 Source: patient Mode of arrival: ambulatory Limitations: no limitations History of Present Illness HPI narrative: 81-year-old male who presents emergency department for evaluation bilateral lower extremity redness, swelling, pain in itchiness. Patient states that his symptoms started 2 or 3 days prior to evaluation. He states that the scan is lower extremities become red and warm to the touch. He states that the area of redness is very itchy and painful. He states he has had similar problems in the past and has been treated with antibiotics. He also states that he has been in wound care in the past for a similar problem. He denied fever, chills, rhi norrhea, sore throat, cough, chest pain, shortness of breath, nausea, vomiting. MD complaint: Leg pain, swelling and erythema Onset (ago): day(s) (3) Location: lower extremity (Bilateral) Severity: moderate Severity scale (1-10): 6 Quality: burning and other (Pruritic) Pain Consistency: constant Relieving factors: none Exacerbating factors: none Treatments prior to arrival: none Related Data Home Medications Medication Instructions Recorded Confirmed amlodipine 10 mg tablet 10 mg PO BEDTIME 03/07/21 10/04/21 aspirin 81 mg tablet,delayed 81 mg PO QAM 03/07/21 10/04/21 release atorvastatin 80 mg tablet 80 mg PO BEDTIME 03/07/21 10/04/21 omeprazole 20 mg capsule,delayed 20 mg PO QAM 03/07/21 10/04/21 release dulaglutide 0.75 mg/0.5 mL 0.75 mg subcut QWEEK 07/07/21 10/04/21 subcutaneous pen injector (Trulicity) empagliflozin 10 mg tablet 10 mg PO QAM 07/07/21 10/04/21 (Jardiance) hydralazine 50 mg tablet 50 mg PO BID 07/07/21 10/04/21 metoprolol succinate 50 mg 50 mg PO DAILY 07/07/21 10/04/21 tablet,extended release 24 hr dulaglutide 0.75 mg/0.5 mL 0.75 mg subcut QWEEK 10/04/21 10/04/21 subcutaneous pen injector (Trulicity) Previous Rx's Medication Instructions Recorded losartan 50 mg tablet 50 mg PO DAILY #0 tabs 08/21/21 compr.stocking,knee,long,large #12 ea 08/31/21 compress.stocking,knee,reg,lrg #2 ea 09/23/21 ammonium lactate 12 % topical cream 1 appl topical DAILY #140 grams 10/07/21 doxycycline hyclate 100 mg tablet 100 mg PO BID #20 tabs 10/07/21 cephalexin 500 mg capsule 500 mg PO TID 7 days #21 caps 12/13/21 doxycycline hyclate 100 mg tablet 100 mg PO Q12H 7 days #14 tabs 12/13/21 hydroxyzine HCl 25 mg tablet 25 mg PO Q8H PRN itching #14 tabs 12/13/21 Allergies Allergy/AdvReac Type Severity Reaction Status Date / Time Penicillins [PENICILLINS] Allergy Intermediate RASH Verified 12/12/21 20:43 Review of Systems Review of Systems: Yes all other systems are reviewed and are negative [facility] Past Medical History [facility] Narrative: Social history: The patient states he is a former smoker but has not smoked in many years. He denies alcohol use. He denies drug use. He states he lives at home with his and child. Medical History Adenocarcinoma of right lung (~2020) COPD (chronic obstructive pulmonary disease) Dementia Diabetes Former smoker, stopped smoking in distant past History of CVA (cerebrovascular accident) (~07/2020) HTN (hypertension) Hyperlipidemia Pneumonia Surgical History History of lung biopsy (~10/2020) Social History Social History Household Members: Spouse Household Members Other:: step-son spends the night frequently Housing: Apartment Do you presently have visiting nurse or other home services: No Alcohol intake: never Patient Tobacco Use Status: Former Tobacco user Advance Directives: Yes Advance Directives on File: Yes Advance Directives Date on File: 05/24/21 service: No Current occupational status: retired and disabled Physical Exam ED Vital Signs: Vital Signs - 24 hr 12/12/21 20:44 12/12/21 22:58 Temperature 99.0 F Pulse Rate 74 82 Respiratory Rate 18 16 Blood Pressure 137/47 L 153/51 H Pulse Oximetry 97 98 Oxygen Delivery Method Room Air Room Air BMI result Body Mass Index 34.7 Const General: cooperative and no acute distress Orientation/consciousness: oriented to person and oriented to place Limitations: no limitations HENVT Head: Yes normal to inspection, Yes normocephalic and Yes atraumatic Ears: external ears normal General nose exam: Normal external nose present Face and sinus: Yes normal facial exam Mouth: Normal oral and palatal mucosa present Throat: Yes posterior oropharynx normal Eyes General: appearance normal, both eyes and all related structures Pupils: Equal, round and reactive pupils present Neck Neck: Yes normal visual inspection, Yes no lymphadenopathy, Yes trachea midline and Yes supple Chest Chest palpation & inspection: normal inspection of the chest and normal palpation of entire chest wall Resp Effort & Inspection: normal respiratory effort and able to speak in complete sentences Auscultation: clear to auscultation bilaterally Cardio Rate: regular rate Rhythm: regular rhythm Heart sounds: S1 normal heart sound present, S2 normal heart sound present and no murmurs GI Inspection: Yes normal to inspection Palpation (GI): Soft to palpation, nontender and no guarding Auscultation: normal bowel sounds General: Yes no CVA tenderness Back/Spine/Pelvis Back: no CVA tenderness Skin General skin exam: no rashes or lesions noted Neuro General: oriented to person and oriented to place Cranial nerves: Yes CN's II-XII intact bilaterally and Yes Equal, round and reactive pupils present Cognition (Neuro): normal cognition Motor exam (neuro): 5/5 motor strength present throughout Extrem Other: Patient has circumferential erythema to both legs from the ankle to just below the knee, there are several areas of excoriation, the erythema is warm to the touch the skin in the area of the erythema is also very dry and scaly. The air a hematoma was outlined with purple skin marker pen. There is nonpitting edema which is symmetric Psych Appearance: grossly normal Speech and movement: Normal speech and movement present Affect: normal affect Attitude: cooperative Thought process: Normal thought process present Thought content: Normal thought content present Course Course Course Narrative: 2358: 81-year-old male who presents emergency department for evaluation erythema, swelling, pain and per right is to his lower extremities. He has had similar presentations in the past he states that he has been treated with antibiotics he also states that he has been in wound care this problem in the past. Symptoms started 3 days prior. He had no significant systemic symptoms. Patient's vital signs revealed an elevated blood pressure 153/51 otherwise were unremarkable. Patient does have circumferential erythema to both lower extremities from the ankle to just below the knee, the skin in the area is warm to the touch, excoriated in the skin is very scaly and dry. Presentation is consistent with either dermatitis or cellulitis. Patient states he has improved in the past with antibiotics. Patient was given Keflex 500 mg orally and doxycycline 100 mg orally. He was started on Keflex 500 mg 3 times a day for 7 days and doxycycline 100 mg twice a day for 7 days. He was also given hydroxyzine 25 mg orally for his pruritus and he was prescribed hydroxyzine 25 mg twice a day as needed for pruritus. He was given printed and verbal instructions and cellulitis and discharged home. Medical Decision Making Lab Data Result diagrams: 12/12/21 23:06 12/12/21 23:06 Labs: Lab Results 12/12/21 12/12/21 Range/Units 23:06 23:06 WBC 9.4 (4.8-10.8) X10*3/uL RBC 3.92 L (4.60-5.80) X10*6/uL Hgb 9.6 L (14.0-18.0) g/dl Hct 32.3 L (42.0-52.0) % MCV 82.4 (80.0-98.0) fL MCH 24.5 L (27.0-33.0) pg MCHC 29.7 L (31.0-36.0) g/dl RDW 15.5 (11.0-16.0) % Plt Count 307 (160-400) X10*3/uL MPV 10.2 (9.4-12.4) fL Immature Gran % (Auto) 0.3 (0.0-0.4) % Neut % (Auto) 56.9 (45-73) % Lymph % (Auto) 30.8 (20-40) % [place] % (Auto) 7.7 (2-11) % Eos % (Auto) 3.8 (0-4) % Baso % (Auto) 0.5 (0-2) % Lymph # (Auto) 2.9 (1.2-4.9) X10*3/uL [place] # (Auto) 0.7 (0.1-1.2) X10*3/uL Eos # (Auto) 0.4 (0.0-0.4) X10*3/uL Baso # (Auto) 0.1 (0.0-0.2) X10*3/uL Abs Immat Gran (auto) 0.03 (0.00-0.03) X10*3/uL Absolute Neuts (auto) 5.4 (2.0-8.3) x10*3/uL Absolute Nucleated RBC 0.000 (0.0-0.012) X10*3/uL Nucleated RBC % (auto) 0.0 (0.0-0.2) /100WBC Sodium 141 (135-145) mmol/L Potassium 4.0 (3.3-5.1) mmol/L Chloride 105 (96-108) mmol/L Carbon Dioxide 27 (22-29) mmol/L Anion Gap 13 (12-20) BUN 30 H (9-16) mg/dL Creatinine 2.08 H (0.5-1.4) mg/dL Estim Creat Clear Calc 25.0 Estimated GFR 31 Random Glucose 256 H (60-115) mg/dL Calcium 8.8 (8.4-10.2) mg/dL Discharge Plan Discharge Clinical Impression: Cellulitis of both lower extremities, Pruritus Patient Disposition: Home, Self-Care Additional Instructions: Cellulitis Discharge Instructions You have an infection of the skin of your legs. This is called cellulitis. This is usually caused by bacteria on your skin that gets under your skin and then causes the infection Take Keflex 500 mg pills, 1 pill 3 times a day for 1 week. Take doxycycline 100 mg pills, 1 pill twice a day for 1 week. These medicines are antibiotic that should help your body fight off the infection. Keep your legs elevated to help reduce swelling in the infected area and this helps with the healing process Also apply a heating pad on low or use a warm compress for 15 minutes, 4-6 times a day. This will increase the blood flow to the area and will bring white blood cells to the area which will help your body fight off the infection. Take Tylenol( acetaminophen) 325 mg pills, 2 pills every 4 hours as needed for pain or fever. Take hydroxyzine 25 mg pills, 1 pill 3 times a day as needed for itchiness. We ashley a line around the area of cellulitis, the redness should withdraw from the line in the next 1-3 days. If the redness crosses the line this is a sign that the infection is getting worse and you should see your doctor or return to the Emergency Department for a recheck. Other signs of worsening infection include fever, chills, weakness, increased pain, increased redness, increased swelling or red streaks going away from the area of infection. If you develop any of these symptoms or any other symptoms that are concerning to you, see your doctor immediately or return to the Emergency Department. Follow up with your doctor in 3 days for a recheck Please read the other printed instructions that we printed for you. Prescriptions: New cephalexin 500 mg capsule 500 mg PO TID 7 Days Qty: 21 0RF doxycycline hyclate 100 mg tablet 100 mg PO Q12H 7 Days Qty: 14 0RF hydroxyzine HCl 25 mg tablet 25 mg PO Q8H PRN (Reason: itching) Qty: 14 0RF No Action atorvastatin 80 mg tablet 80 mg PO BEDTIME aspirin 81 mg tablet,delayed release (DR/EC) 81 mg PO QAM amlodipine 10 mg tablet 10 mg PO BEDTIME omeprazole 20 mg capsule,delayed release(DR/EC) 20 mg PO QAM Jardiance 10 mg Tablet 10 mg PO QAM Trulicity 0.75 mg/0.5 mL Pen Injector 0.75 mg SUBCUT QWEEK hydralazine 50 mg Tablet 50 mg PO BID metoprolol succinate 50 mg Tablet Extended Release 24 Hr 50 mg PO DAILY Trulicity 0.75 mg/0.5 mL pen injector 0.75 mg subcut QWEEK doxycycline hyclate 100 mg tablet 100 mg PO BID Qty: 20 0RF ammonium lactate 12 % Cream 1 appl topical DAILY Qty: 140 0RF Protocol: Apply to: Apply to: legs losartan 50 mg Tablet 50 mg PO DAILY Qty: 0 0RF Rx Instructions: THIS WAS JUST RECENTLY INCREASED TO 100 MG (DME) compr.stocking,knee,long,large Misc See Rx Instructions .Route Qty: 12 0RF Rx Instructions: As directed (DME) compress.stocking,knee,reg,lrg Misc See Rx Instructions .Route Qty: 2 0RF Rx Instructions: As directed
[2021-12-13] MEDS: cephALEXin 500 MG CAPSULE PO (00:03)
[2021-12-13] MEDS: hydrOXYzine HCL 25 MG TABLET PO (00:03)
== END 2021-12-13 00:23 | disposition home or self-care (01) ==
PROVIDERS: Emergency Provider Emergency Medicine Emergency Medical Services
DX: L03.116 Cellulitis of left lower limb (principal); L03.115 Cellulitis of right lower limb; L29.9 Pruritus, unspecified; M79.662 Pain in left lower leg; M79.661 Pain in right lower leg; I10 Essential (primary) hypertension; E11.9 Type 2 diabetes mellitus without complications; E78.5 Hyperlipidemia, unspecified; Z87.891 Personal history of nicotine dependence
CPT/HCPCS: 36415; 80048; 85025; 99283; 99284

== ENCOUNTER 2022-01-02 12:27 | Outpatient (REF) | payer OTHER, SELFPAY ==
--- NOTE | ~2022-01-02 | XR_ITS ---
EXAMINATION: XR CHEST CLINICAL INFORMATION: Localized edema COMPARISON: Previous chest x-rays most recent September [address] most recent January 2021 TECHNIQUE: 2 views of the chest were obtained. FINDINGS: The cardiac silhouette does not appear enlarged. The thoracic aorta is tortuous but unchanged. Hilar and mediastinal contours are otherwise unremarkable. There is a 1.5 x 1.7 cm right base pulmonary nodule. This does not appear appreciably changed from previous exams. The lungs are otherwise clear. There is no pleural effusion or pneumothorax. There are degenerative changes of the spine. XR/XR chest 2V IMPRESSION: No evidence for acute disease in the chest. Stable appearance to the approximately 1.5 x 1.7 cm right base pulmonary nodule. This could be better assessed with chest CT scan.
== END 2022-01-02 12:28 | disposition home or self-care (01) ==
LOC: HO.HMGCX 12:27
PROVIDERS: PCP Internal Medicine; Visit Provider Internal Medicine
DX: R30.0 Dysuria (principal)
CPT/HCPCS: 71046

== ENCOUNTER 2022-01-14 15:41 | Emergency (ER) | payer OTHER, SELFPAY ==
--- NOTE | ~2022-01-14 | XR_ITS ---
EXAMINATION: XR FOOT, RIGHT CLINICAL INFORMATION: right foot pain, discoloration, nail falling off COMPARISON: None TECHNIQUE: AP, lateral, and oblique views of the right foot. FINDINGS: Marked vascular calcifications are seen. No fractures or dislocations are seen. No bony destructive lesions are seen. Some minimal osteoarthritic changes are seen at the interphalangeal joints and the first metatarsal phalangeal joint XR/XR foot RT min 3V IMPRESSION: Unremarkable exam of the right foot. No evidence of osteomyelitis
[2022-01-14 16:33] VITALS: BP 168/55; PULSE 75; RESP 16; TEMP 36.2; O2SAT 99; BMI 29.5
[2022-01-14 20:28] VITALS: BP 177/67; PULSE 68; RESP 18; TEMP 36.3; O2SAT 100
[2022-01-14 20:48] LABS: MANUAL DIFF FLAG NO
[2022-01-14 20:49] LABS: Basophils Absolute Auto 0.1 X10*3/uL (0.0-0.2); Basophils Percent Auto 0.6 % (0-2); Eosinophils Absolute Auto 0.5 X10*3/uL (0.0-0.4); Eosinophils Percent Auto 5.2 % (0-4); Hematocrit 34.5 % (42.0-52.0); Hemoglobin 10.6 g/dl (14.0-18.0); Imm Gran Abs Auto 0.03 X10*3/uL (0.00-0.03); Imm Gran Pct Auto 0.3 % (0.0-0.4); Lymphocytes Absolute Auto 2.8 X10*3/uL (1.2-4.9); Lymphocytes Percent Auto 29.6 % (20-40); Mean Corpuscular HGB Conc 30.7 g/dl (31.0-36.0); Mean Corpuscular Hemoglobin 24.7 pg (27.0-33.0); Mean Corpuscular Volume 80.4 fL (80.0-98.0); Mean Platelet Volume 10.3 fL (9.4-12.4); Monocytes Absolute Auto 0.6 X10*3/uL (0.1-1.2); Monocytes Percent Auto 6.3 % (2-11); Neutrophils Absolute Auto 5.5 x10*3/uL (2.0-8.3); Platelet Count 349 X10*3/uL (160-400); Red Blood Count 4.29 X10*6/uL (4.60-5.80); Red Cell Distribution Width 16.5 % (11.0-16.0); White Blood Count 9.5 X10*3/uL (4.8-10.8)
[2022-01-14 20:59] LABS: Lactic Acid 1.3 mmol/L (0.5-2.0)
[2022-01-14 21:02] LABS: Anion Gap 14 (12-20); Blood Urea Nitrogen 19 mg/dL (9-16); Calcium 8.9 mg/dL (8.4-10.2); Carbon Dioxide 27 mmol/L (22-29); Chloride 104 mmol/L (96-108); Creatinine Clr Calc Pharmacy 47.1; Estimated Glomerular Filt Rate 57; Glucose Random 241 mg/dL (60-115); Potassium 3.5 mmol/L (3.3-5.1); Sodium 141 mmol/L (135-145)
--- NOTE | 2022-01-14 22:53 | ED.EXTPRO ---
HPI - Extremity Problem General Chief complaint: Extremity Problem Stated complaint: R swollen toe/diabetic Time Seen by Provider: 01/14/22 22:53 Source: patient Mode of arrival: ambulatory Limitations: no limitations History of Present Illness HPI Narrative: patient complaining of pain in the right great toe nail almost coming off patient diabetic slight redness around the toenail no fever no chills blood sugar stable Related Data Home Medications Medication Instructions Recorded Confirmed amlodipine 10 mg tablet 10 mg PO BEDTIME 03/07/21 10/04/21 aspirin 81 mg tablet,delayed 81 mg PO QAM 03/07/21 10/04/21 release atorvastatin 80 mg tablet 80 mg PO BEDTIME 03/07/21 10/04/21 omeprazole 20 mg capsule,delayed 20 mg PO QAM 03/07/21 10/04/21 release dulaglutide 0.75 mg/0.5 mL 0.75 mg subcut QWEEK 07/07/21 10/04/21 subcutaneous pen injector (Trulicity) empagliflozin 10 mg tablet 10 mg PO QAM 07/07/21 10/04/21 (Jardiance) hydralazine 50 mg tablet 50 mg PO BID 07/07/21 10/04/21 metoprolol succinate 50 mg 50 mg PO DAILY 07/07/21 10/04/21 tablet,extended release 24 hr dulaglutide 0.75 mg/0.5 mL 0.75 mg subcut QWEEK 10/04/21 10/04/21 subcutaneous pen injector (Trulicity) Previous Rx's Medication Instructions Recorded losartan 50 mg tablet 50 mg PO DAILY #0 tabs 08/21/21 compr.stocking,knee,long,large #12 ea 08/31/21 compress.stocking,knee,reg,lrg #2 ea 09/23/21 ammonium lactate 12 % topical cream 1 appl topical DAILY #140 grams 10/07/21 doxycycline hyclate 100 mg tablet 100 mg PO BID #20 tabs 10/07/21 cephalexin 500 mg capsule 500 mg PO TID 7 days #21 caps 12/13/21 doxycycline hyclate 100 mg tablet 100 mg PO Q12H 7 days #14 tabs 12/13/21 hydroxyzine HCl 25 mg tablet 25 mg PO Q8H PRN itching #14 tabs 12/13/21 cephalexin 500 mg capsule 500 mg PO QID 10 days #40 caps 01/15/22 doxycycline hyclate 100 mg tablet 100 mg PO BID #20 tabs 01/15/22 Allergies Allergy/AdvReac Type Severity Reaction Status Date / Time Penicillins [PENICILLINS] Allergy Intermediate RASH Verified 01/14/22 16:39 Review of Systems Review of Systems: Yes all other systems are reviewed and are negative [facility] Past Medical History Medical History Adenocarcinoma of right lung (~2020) COPD (chronic obstructive pulmonary disease) Dementia Diabetes Former smoker, stopped smoking in distant past History of CVA (cerebrovascular accident) (~07/2020) HTN (hypertension) Hyperlipidemia Pneumonia Surgical History History of lung biopsy (~10/2020) Social History Social History Household Members: Spouse Household Members Other:: step-son spends the night frequently Housing: Apartment Do you presently have visiting nurse or other home services: No Alcohol intake: never Patient Tobacco Use Status: Former Tobacco user Advance Directives: Yes Advance Directives on File: Yes Advance Directives Date on File: 05/24/21 service: No Current occupational status: retired and disabled Physical Exam Vital Signs: Vital Signs: Last Vital Signs Temp 98.0 F 01/15/22 00:00 Pulse 68 01/15/22 00:00 Resp 16 01/15/22 00:00 BP 171/72 H 01/15/22 00:00 Pulse Ox 98 01/15/22 00:00 O2 Del Method 01/15/22 00:00 BMI result Body Mass Index 29.5 Appearance: Alert. Oriented X3. No acute distress. ENT: Pharynx normal. Oral Mucosa moist Neck: Normal inspection. Neck supple. CVS: Normal heart rate and rhythm. Pulses normal. Respiratory: No respiratory distress. Equal air entry bilateral, no wheezing/rales/rhonchi Abdomen: Soft and nontender. Bowel sounds are present, no mass palpable, no CVA tenderness Skin: Skin warm and dry. Normal skin color. Normal skin turgor. Extremities: No lower extremity edema. No calf tenderness Neuro: Oriented X 3. No motor deficit. No sensory deficit. Extrem: Ankle/foot/toe images: 1. half broken toenail no sick with pus discharge no fluctuation no significant redness MDM - Extremity (Nontraumatic) MDM Narrative Medical decision making narrative: >> half of the nail was removed on right greater toe, nail base is clean right toe was cleaned with peroxide and iodine, Xeroform dressing was applied will give antibiotic doxycycline and Keflex as patient diabetic x-ray negative for bony erosion Lab Data Attestation: I reviewed the patient's lab results. Result diagrams: 01/14/22 20:41 01/14/22 20:41 Labs: Lab Results 01/14/22 01/14/22 01/14/22 Range/Units 20:41 20:41 20:41 WBC 9.5 (4.8-10.8) X10*3/uL RBC 4.29 L (4.60-5.80) X10*6/uL Hgb 10.6 L (14.0-18.0) g/dl Hct 34.5 L (42.0-52.0) % MCV 80.4 (80.0-98.0) fL MCH 24.7 L (27.0-33.0) pg MCHC 30.7 L (31.0-36.0) g/dl RDW 16.5 H (11.0-16.0) % Plt Count 349 (160-400) X10*3/uL MPV 10.3 (9.4-12.4) fL Immature Gran % (Auto) 0.3 (0.0-0.4) % Neut % (Auto) 58.0 (45-73) % Lymph % (Auto) 29.6 (20-40) % [place] % (Auto) 6.3 (2-11) % Eos % (Auto) 5.2 H (0-4) % Baso % (Auto) 0.6 (0-2) % Lymph # (Auto) 2.8 (1.2-4.9) X10*3/uL [place] # (Auto) 0.6 (0.1-1.2) X10*3/uL Eos # (Auto) 0.5 H (0.0-0.4) X10*3/uL Baso # (Auto) 0.1 (0.0-0.2) X10*3/uL Abs Immat Gran (auto) 0.03 (0.00-0.03) X10*3/uL Absolute Neuts (auto) 5.5 (2.0-8.3) x10*3/uL Absolute Nucleated RBC 0.000 (0.0-0.012) X10*3/uL Nucleated RBC % (auto) 0.0 (0.0-0.2) /100WBC Sodium 141 (135-145) mmol/L Potassium 3.5 (3.3-5.1) mmol/L Chloride 104 (96-108) mmol/L Carbon Dioxide 27 (22-29) mmol/L Anion Gap 14 (12-20) BUN 19 H (9-16) mg/dL Creatinine 1.22 (0.5-1.4) mg/dL Estim Creat Clear Calc 47.1 Estimated GFR 57 Random Glucose 241 H (60-115) mg/dL Lactic Acid 1.3 (0.5-2.0) mmol/L Calcium 8.9 (8.4-10.2) mg/dL Discharge Plan Discharge Clinical Impression: Infection of great toe Patient Disposition: Home, Self-Care Instructions: Acute Wounds (ED) Additional Instructions: local care as advised follow-up with core driller helper antibiotics as advised report to the ER if worsening of the swelling or pain cuidado local seg?n lo recomendado seguimiento con pod?logo antibi?ticos seg?n lo recomendado informe a la [place] de emergencias si empeora la hinchaz?n o el dolor Prescriptions: New cephalexin 500 mg capsule 500 mg PO QID 10 Days Qty: 40 0RF doxycycline hyclate 100 mg tablet 100 mg PO BID Qty: 20 0RF No Action atorvastatin 80 mg tablet 80 mg PO BEDTIME aspirin 81 mg tablet,delayed release (DR/EC) 81 mg PO QAM amlodipine 10 mg tablet 10 mg PO BEDTIME omeprazole 20 mg capsule,delayed release(DR/EC) 20 mg PO QAM Jardiance 10 mg Tablet 10 mg PO QAM Trulicity 0.75 mg/0.5 mL Pen Injector 0.75 mg SUBCUT QWEEK hydralazine 50 mg Tablet 50 mg PO BID metoprolol succinate 50 mg Tablet Extended Release 24 Hr 50 mg PO DAILY Trulicity 0.75 mg/0.5 mL pen injector 0.75 mg subcut QWEEK doxycycline hyclate 100 mg tablet 100 mg PO BID Qty: 20 0RF ammonium lactate 12 % Cream 1 appl topical DAILY Qty: 140 0RF Protocol: Apply to: Apply to: legs cephalexin 500 mg capsule 500 mg PO TID 7 Days Qty: 21 0RF doxycycline hyclate 100 mg tablet 100 mg PO Q12H 7 Days Qty: 14 0RF hydroxyzine HCl 25 mg tablet 25 mg PO Q8H PRN (Reason: itching) Qty: 14 0RF losartan 50 mg Tablet 50 mg PO DAILY Qty: 0 0RF Rx Instructions: THIS WAS JUST RECENTLY INCREASED TO 100 MG (DME) compr.stocking,knee,long,large Misc See Rx Instructions .Route Qty: 12 0RF Rx Instructions: As directed (DME) compress.stocking,knee,reg,lrg Misc See Rx Instructions .Route Qty: 2 0RF Rx Instructions: As directed Interventions: ED Discharge Assessment Last Done: 01/15/22 00:48 Discharge Date/Time: 01/15/22 00:49 Print Language: Estonian
[2022-01-15] VITALS: BP 171/72; PULSE 68; RESP 16; TEMP 36.7; O2SAT 98
[2022-01-15] MEDS: cephALEXin 500 MG CAPSULE PO (00:32)
== END 2022-01-15 00:49 | disposition home or self-care (01) ==
PROVIDERS: Emergency Provider Internal Medicine; PCP Internal Medicine
DX: L03.031 Cellulitis of right toe (principal); M79.674 Pain in right toe(s); E11.9 Type 2 diabetes mellitus without complications; E78.5 Hyperlipidemia, unspecified; I10 Essential (primary) hypertension; Z86.73 Personal history of transient ischemic attack (TIA), and cerebral infarction without residual deficits; Z87.891 Personal history of nicotine dependence
CPT/HCPCS: 11730; 36415; 73630; 80048; 83605; 85025; 87040; 99283; 99284

== ENCOUNTER 2022-01-17 15:20 | Inpatient (IN) | payer OTHER, SELFPAY ==
--- NOTE | ~2022-01-17 | XR_ITS ---
EXAMINATION: XR FOOT, RIGHT CLINICAL INFORMATION: Great toe infection COMPARISON: Right foot radiographs 01/14/2022 TECHNIQUE: AP, lateral, and oblique views of the right foot. FINDINGS: Mild soft tissue swelling about the great toe. No tracking soft tissue gas. No osseous destructive change or periostitis identified. Minimal first MTP joint space narrowing. Joint spaces otherwise maintained. Extensive vascular calcifications. Mild dorsal soft tissue swelling about the foot. Plantar calcaneal spur. XR/XR foot RT 2V IMPRESSION: 1. No tracking soft tissue gas or radiographic evidence of advanced acute osteomyelitis. If high clinical concern for osteomyelitis, suggest either radiographic follow-up or alternatively MRI.
--- NOTE | ~2022-01-17 | CT_ITS ---
EXAMINATION: CT FOOT WITH CONTRAST, RIGHT CLINICAL INFORMATION: Nonhealing wound COMPARISON: Right foot radiographs 04/28/2022 TECHNIQUE: Axial images were obtained through the right foot following the intravenous administration of 85 mL Omnipaque 350 contrast. Multiplanar reformatted images were generated. This CT examination was performed using dose optimization techniques as appropriate, variously including the following: *Automated exposure control *Adjustment of mA and/or kV according to patient size (this includes techniques or standardized protocols for targeted exams where dose is matched to indication/reason for exam; i.e. extremities or head) *Use of iterative reconstruction technique DLP: 174 mGy-cm FINDINGS: Soft tissue wound overlying the dorsal distal great toe with deformity and/or defect in the toe nail. Correlate with exam. The wound extends to the underlying dorsal tuft of the distal phalanx, which may be exposed. Correlate with exam. There is question of subtle cortical erosive change of the tuft. No fluid collection/abscess. No tracking soft tissue gas. No periostitis. No acute fracture or dislocation. No joint effusions. Limited assessment of soft tissues due to noncontrast CT technique. No evidence tenosynovitis. Mild diffuse muscle atrophy. Mild dorsal subcutaneous edema about the foot. Atherosclerotic vascular calcifications noted. CT/CT foot RT w con IMPRESSION: 1. Soft tissue ulcer overlying the distal phalanx of the great toe that may expose the underlying tuft of the distal phalanx. Correlate with exam. There is question of subtle cortical erosive change at the tuft of the distal phalanx, concerning for early acute small volume osteomyelitis. 2. No soft tissue fluid collection/abscess. 3. No tracking soft tissue gas. 4. No tenosynovitis.
--- NOTE | ~2022-01-17 | US_ITS ---
EXAMINATION: ULTRASOUND ARTERIAL DUPLEX RIGHT LOWER EXTREMITY CLINICAL INFORMATION: Nonhealing wound. Question peripheral vascular disease. COMPARISON: Previous exam March 2008 TECHNIQUE: Doppler color and grayscale evaluation of the arteries of the right lower extremity including waveform spectral analysis FINDINGS: There is significant calcified plaque. The right common femoral artery is patent. Right common femoral artery peak systolic velocity is 107 cm/s. There is a mono to biphasic waveform. The right proximal profunda is patent. Systolic velocity is 71 cm/s. There is a monophasic to biphasic waveform. There is severe disease of the right superficial femoral artery with multiple areas of wall thickening and luminal narrowing. Right superficial femoral systolic velocities measure 44, 44 and 25 cm/s proximally, in the midportion and distally. There is a monophasic waveform. There are collateral vessel arising from the proximal and mid right superficial femoral artery. The right popliteal artery is patent. Peak systolic velocity is 34 cm/s. There is a monophasic waveform. The right posterior tibial artery appears very small in caliber with segmental stenoses. Right superior tibial artery peak systolic velocity is 67 cm/s. There is a monophasic waveform. There is a collateral off the visualized right posterior tibial artery. 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
[2022-01-17 15:30] VITALS: BP 170/89; PULSE 76; RESP 18; TEMP 37; O2SAT 98; BMI 29.6
--- NOTE | 2022-01-17 18:17 | PC.NURSE ---
NIECE JOLYNN LEFT CONTACT INFORMATION, ALSO STS HER UNCLE, THE PT, HAS DEMENTIA.
--- NOTE | 2022-01-17 18:47 | ED_ITS ---
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 Patient denies any fevers or chills. Patient saw his primary care doctor this week us follow-up in referred into the emergency room but did not come in till today. Related Data Home Medications Medication Instructions Recorded Confirmed amlodipine 10 mg tablet 10 mg PO BEDTIME 03/07/21 01/17/22 aspirin 81 mg tablet,delayed 81 mg PO QAM 03/07/21 01/17/22 release atorvastatin 80 mg tablet 80 mg PO BEDTIME 03/07/21 01/17/22 omeprazole 20 mg capsule,delayed 20 mg PO QAM 03/07/21 01/17/22 release hydralazine 50 mg tablet 50 mg PO BID 07/07/21 01/17/22 metoprolol succinate 50 mg 50 mg PO DAILY 07/07/21 01/17/22 tablet,extended release 24 hr cholecalciferol (vitamin D3) 25 1 tab PO DAILY 01/17/22 01/17/22 mcg (1,000 unit) tablet dulaglutide 1.5 mg/0.5 mL 1.5 mg subcut QWEEK 01/17/22 01/17/22 subcutaneous pen injector (Trulicity) insulin glargine 100 unit/mL 15 unit subcut BEDTIME 01/17/22 01/17/22 subcutaneous solution (Lantus U-100 Insulin) Previous Rx's Medication Instructions Recorded losartan 50 mg tablet 50 mg PO DAILY #0 tabs 08/21/21 compr.stocking,knee,long,large #12 ea 08/31/21 compress.stocking,knee,reg,lrg #2 ea 09/23/21 hydroxyzine HCl 25 mg tablet 25 mg PO Q8H PRN itching #14 tabs 12/13/21 cephalexin 500 mg capsule 500 mg PO QID 10 days #40 caps 01/15/22 doxycycline hyclate 100 mg tablet 100 mg PO BID #20 tabs 01/15/22 Allergies Allergy/AdvReac Type Severity Reaction Status Date / Time Penicillins [PENICILLINS] Allergy Intermediate RASH Verified 01/14/22 16:39 Review of Systems Review of Systems: Yes all other systems are reviewed and are negative Constitutional: Constitutional: Reports no additional constitutional c omplaints, Denies body ache(s), Denies chills, Denies fever(s), Denies headache(s) and Denies weakness Eyes: Eyes: Reports no additional eye complaints and Denies change in vision ENT: Reports system reviewed and no additional complaints, except as documented, Denies dizziness, Denies headache(s), Denies nasal congestion, Denies nasal discharge and Denies neck pain Cardiovascular: Cardiovascular: Reports no additional cardiovascular complaints, Denies chest pain, Denies leg edema and Denies dyspnea Respiratory: Respiratory: Reports no additional respiratory complaints, Denies cough and Denies dyspnea Gastrointestinal: Gastrointestinal: Reports no additional gastrointestinal complaints, Denies abdominal pain, Denies diarrhea, Denies nausea and Denies vomiting Genitourinary: Genitourinary: Denies urinary incontinence Musculoskeletal: Musculoskeletal: Reports no additional musculoskeletal complaints, Denies back pain, Denies arthralgias, Denies joint swelling, Denies neck pain, Denies numbness and Denies tingling Integumentary/Breasts: Skin/Breast: Reports system reviewed and no additional complaints, except as docu, Reports swelling, Reports erythema, Denies rash and Reports wounds Neurologic: Reports system reviewed and no additional complaints, except as documented, Denies Abnormal speech present, Denies dizziness, Denies headache(s), Denies numbness, Denies tingling and Denies weakness [facility] Past Medical History Attestation statement: The following information was validated with the patient. Source: old records reviewed and nursing notes reviewed Medical History Adenocarcinoma of right lung (~2020) COPD (chronic obstructive pulmonary disease) Dementia Diabetes Former smoker, stopped smoking in distant past History of CVA (cerebrovascular accident) (~07/2020) HTN (hypertension) Hyperlipidemia Pneumonia Surgical History History of lung biopsy (~10/2020) Social History Social History Household Members: Spouse Household Members Other:: step-son spends the night frequently Housing: Apartment Do you presently have visiting nurse or other home services: No Alcohol intake: never Patient Tobacco Use Status: Former Tobacco user Advance Directives: Yes Advance Directives on File: Yes Advance Directives Date on File: 05/24/21 service: No Current occupational status: retired and disabled Physical Exam Vital Signs: Vital Signs: Last Vital Signs Temp 98.6 F 01/17/22 15:30 Pulse 76 01/17/22 15:30 Resp 18 01/17/22 15:30 BP 170/89 H 01/17/22 15:30 Pulse Ox 98 01/17/22 15:30 O2 Del Method 01/17/22 15:30 BMI result Body Mass Index 29.6 Const: General: cooperative, healthy appearing, comfortable and no acute distress Orientation/consciousness: patient oriented x3 Limitations: no limitations HEENT: Head: Yes normal to inspection Ears: hearing grossly normal bilaterally General nose exam: Normal external nose present Face and sinus: Yes normal facial exam Mouth: Normal oral and palatal mucosa present Throat: Yes posterior oropharynx normal Eyes: General: appearance normal, both eyes and all related structures Pupils: Equal, round and reactive pupils present Neck: Neck: Yes normal visual inspection Chest: Chest palpation & inspection: normal inspection of the chest Resp: Effort & Inspection: normal respiratory effort Auscultation: clear to auscultation bilaterally Cardio: Rate: regular rate Rhythm: regular rhythm Peripheral pulses: Peripheral pulses 2+ throughout GI: Inspection: Yes normal to inspection Palpation (GI): Soft to palpation and nontender Auscultation: normal bowel sounds Back/Spine/Pelvis: Thoracic/Lumbar Spine: thoracic and lumbar spine normal to inspection Skin: Other: General skin exam: no rashes or lesions noted Neuro: General: patient oriented x3, no focal motor deficits and normal sensation to monofilament Cranial nerves: Yes Equal, round and reactive pupils present Cognition (Neuro): normal cognition Speech: No Abnormal speech present Gait exam (Neuro): Normal gait present Motor exam (neuro): 5/5 motor strength present throughout Extrem: General: Yes normal to inspection Course Course Course Narrative: 0845-spoke to Dr. Breen who accepted patient for admission. Family was informed (Ashely) MDM - Wound/Laceration MDM Narrative Medical decision making narrative: 81-year-old male who presents with a right great toe infection despite being on doxycycline and Keflex since Friday with worsening redness, swelling, pain and foul odor. Patient denies fevers or chills. Will obtain an x-ray, labs. At this time infection is suspected. Antibiotics ordered Medical Records Attestation: I reviewed the patient's medical records. Lab Data Attestation: I reviewed the patient's lab results. Result diagrams: 01/17/22 19:20 01/17/22 19:20 Labs: Lab Results 01/17/22 01/17/22 01/17/22 Range/Units 19:20 19:20 19:20 WBC 9.7 (4.8-10.8) X10*3/uL RBC 4.07 L (4.60-5.80) X10*6/uL Hgb 10.2 L (14.0-18.0) g/dl Hct 32.9 L (42.0-52.0) % MCV 80.8 (80.0-98.0) fL MCH 25.1 L (27.0-33.0) pg MCHC 31.0 (31.0-36.0) g/dl RDW 16.3 H (11.0-16.0) % Plt Count 343 (160-400) X10*3/uL MPV 10.3 (9.4-12.4) fL Immature Gran % (Auto) 0.2 (0.0-0.4) % Neut % (Auto) 54.2 (45-73) % Lymph % (Auto) 34.0 (20-40) % [place] % (Auto) 6.9 (2-11) % Eos % (Auto) 4.0 (0-4) % Baso % (Auto) 0.7 (0-2) % Lymph # (Auto) 3.3 (1.2-4.9) X10*3/uL [place] # (Auto) 0.7 (0.1-1.2) X10*3/uL Eos # (Auto) 0.4 (0.0-0.4) X10*3/uL Baso # (Auto) 0.1 (0.0-0.2) X10*3/uL Abs Immat Gran (auto) 0.02 (0.00-0.03) X10*3/uL Absolute Neuts (auto) 5.3 (2.0-8.3) x10*3/uL Absolute Nucleated RBC 0.000 (0.0-0.012) X10*3/uL Nucleated RBC % (auto) 0.0 (0.0-0.2) /100WBC ESR (0-15) MM/HR Sodium 140 (135-145) mmol/L Potassium 4.0 (3.3-5.1) mmol/L Chloride 103 (96-108) mmol/L Carbon Dioxide 24 (22-29) mmol/L Anion Gap 17 (12-20) BUN 16 (9-16) mg/dL Creatinine 1.09 (0.5-1.4) mg/dL Estim Creat Clear Calc 51.1 Estimated GFR > 60 Random Glucose 171 H (60-115) mg/dL Lactic Acid 1.4 (0.5-2.0) mmol/L Calcium 9.1 (8.4-10.2) mg/dL Total Bilirubin 0.4 (0.0-1.0) mg/dL Direct Bilirubin 0.2 (0.0-0.5) mg/dL AST 14 (5-37) U/L ALT 10 (0-40) U/L Alkaline Phosphatase 127 H D (39-117) U/L C-Reactive Protein (< or = 0.50) mg/dL Total Protein 7.4 (6.5-8.0) g/dL Albumin 3.7 (3.5-5.0) g/dL COVID-19 (SHANA) (Negative) COVID-19 Clin Com 01/17/22 01/17/22 01/17/22 Range/Units 19:20 19:20 19:20 WBC (4.8-10.8) X10*3/uL RBC (4.60-5.80) X10*6/uL Hgb (14.0-18.0) g/dl Hct (42.0-52.0) % MCV (80.0-98.0) fL MCH (27.0-33.0) pg MCHC (31.0-36.0) g/dl RDW (11.0-16.0) % Plt Count (160-400) X10*3/uL MPV (9.4-12.4) fL Immature Gran % (Auto) (0.0-0.4) % Neut % (Auto) (45-73) % Lymph % (Auto) (20-40) % [place] % (Auto) (2-11) % Eos % (Auto) (0-4) % Baso % (Auto) (0-2) % Lymph # (Auto) (1.2-4.9) X10*3/uL [place] # (Auto) (0.1-1.2) X10*3/uL Eos # (Auto) (0.0-0.4) X10*3/uL Baso # (Auto) (0.0-0.2) X10*3/uL Abs Immat Gran (auto) (0.00-0.03) X10*3/uL Absolute Neuts (auto) (2.0-8.3) x10*3/uL Absolute Nucleated RBC (0.0-0.012) X10*3/uL Nucleated RBC % (auto) (0.0-0.2) /100WBC ESR 67 H (0-15) MM/HR Sodium (135-145) mmol/L Potassium (3.3-5.1) mmol/L Chloride (96-108) mmol/L Carbon Dioxide (22-29) mmol/L Anion Gap (12-20) BUN (9-16) mg/dL Creatinine (0.5-1.4) mg/dL Estim Creat Clear Calc Estimated GFR Random Glucose (60-115) mg/dL Lactic Acid (0.5-2.0) mmol/L Calcium (8.4-10.2) mg/dL Total Bilirubin (0.0-1.0) mg/dL Direct Bilirubin (0.0-0.5) mg/dL AST (5-37) U/L ALT (0-40) U/L Alkaline Phosphatase (39-117) U/L C-Reactive Protein 0.53 H (< or = 0.50) mg/dL Total Protein (6.5-8.0) g/dL Albumin (3.5-5.0) g/dL COVID-19 (SHANA) Negative (Negative) COVID-19 Clin Com See Note Imaging Data foot xray: Attestation: I personally reviewed and interpreted this imaging study as follows: Radiologist's impression: [id number] [place] [address] XRay Report Signed Patient: Jerome Ro MR#: [id number] : 1940 Acct:[id number] Age/Sex: 81 / M ADM Date: 01/17/22 Loc: HO.ED Attending Dr: Ordering Physician: Blanca Dela Cruz NP Date of Service: 01/17/22 Procedure(s): XR foot RT 2V Accession Number(s): [id number] cc: Blanca Dela Cruz NP~ EXAMINATION: XR FOOT, RIGHT CLINICAL INFORMATION: Great toe infection? COMPARISON: Right foot radiographs 01/14/2022? TECHNIQUE: AP, lateral, and oblique views of the right foot. FINDINGS: Mild soft tissue swelling about the great toe. No tracking soft tissue gas. No osseous destructive change or periostitis identified. Minimal first MTP joint space narrowing. Joint spaces otherwise maintained. Extensive vascular calcifications. Mild dorsal soft tissue swelling about the foot. Plantar calcaneal spur.? XR/XR foot RT 2V IMPRESSION: ? 1. No tracking soft tissue gas or radiographic evidence of advanced acute osteomyelitis. If high clinical concern for osteomyelitis, suggest either radiographic follow-up or alternatively MRI. Discharge Plan Discharge Clinical Impression: Diabetic ulcer of right great toe Patient Disposition: Admitted As Inpatient Prescriptions: No Action insulin glargine [Lantus U-100 Insulin] 100 unit/mL solution 15 unit subcut BEDTIME atorvastatin 80 mg tablet 80 mg PO BEDTIME aspirin 81 mg tablet,delayed release (DR/EC) 81 mg PO QAM amlodipine 10 mg tablet 10 mg PO BEDTIME omeprazole 20 mg capsule,delayed release(DR/EC) 20 mg PO QAM hydralazine 50 mg Tablet 50 mg PO BID metoprolol succinate 50 mg Tablet Extended Release 24 Hr 50 mg PO DAILY hydroxyzine HCl 25 mg tablet 25 mg PO Q8H PRN (Reason: itching) Qty: 14 0RF cholecalciferol (vitamin D3) 25 mcg (1,000 unit) tablet 1 tab PO DAILY Trulicity 1.5 mg/0.5 mL pen injector 1.5 mg subcut QWEEK losartan 50 mg Tablet 50 mg PO DAILY Qty: 0 0RF Rx Instructions: THIS WAS JUST RECENTLY INCREASED TO 100 MG (DME) compr.stocking,knee,long,large Misc See Rx Instructions .Route Qty: 12 0RF Rx Instructions: As directed (DME) compress.stocking,knee,reg,lrg Misc See Rx Instructions .Route Qty: 2 0RF Rx Instructions: As directed cephalexin 500 mg capsule 500 mg PO QID 10 Days Qty: 40 0RF doxycycline hyclate 100 mg tablet 100 mg PO BID Qty: 20 0RF
[2022-01-17 19:26] LABS: MANUAL DIFF FLAG NO
[2022-01-17] MEDS: cefTRIAXone sodium 1 GM in 0.9 % Sodium Chloride 50 ML IV (19:27)
[2022-01-17 19:31] LABS: Basophils Absolute Auto 0.1 X10*3/uL (0.0-0.2); Basophils Percent Auto 0.7 % (0-2); Eosinophils Absolute Auto 0.4 X10*3/uL (0.0-0.4); Hematocrit 32.9 % (42.0-52.0); Hemoglobin 10.2 g/dl (14.0-18.0); Imm Gran Abs Auto 0.02 X10*3/uL (0.00-0.03); Imm Gran Pct Auto 0.2 % (0.0-0.4); Lymphocytes Absolute Auto 3.3 X10*3/uL (1.2-4.9); Mean Corpuscular Hemoglobin 25.1 pg (27.0-33.0); Mean Corpuscular Volume 80.8 fL (80.0-98.0); Mean Platelet Volume 10.3 fL (9.4-12.4); Monocytes Absolute Auto 0.7 X10*3/uL (0.1-1.2); Monocytes Percent Auto 6.9 % (2-11); Neutrophils Absolute Auto 5.3 x10*3/uL (2.0-8.3); Neutrophils Percent Auto 54.2 % (45-73); Platelet Count 343 X10*3/uL (160-400); Red Blood Count 4.07 X10*6/uL (4.60-5.80); Red Cell Distribution Width 16.3 % (11.0-16.0); White Blood Count 9.7 X10*3/uL (4.8-10.8)
[2022-01-17 19:39] LABS: Lactic Acid 1.4 mmol/L (0.5-2.0)
[2022-01-17 19:41] LABS: C Reactive Protein 0.53 mg/dL (< or = 0.50)
[2022-01-17 19:43] LABS: Alanine Aminotransferase 10 U/L (0-40); Albumin Level 3.7 g/dL (3.5-5.0); Alkaline Phosphatase 127 U/L (39-117); Anion Gap 17 (12-20); Aspartate Amino Transferase 14 U/L (5-37); Bilirubin Direct 0.2 mg/dL (0.0-0.5); Bilirubin Total 0.4 mg/dL (0.0-1.0); Blood Urea Nitrogen 16 mg/dL (9-16); Calcium 9.1 mg/dL (8.4-10.2); Carbon Dioxide 24 mmol/L (22-29); Chloride 103 mmol/L (96-108); Creatinine Clr Calc Pharmacy 51.1; Estimated Glomerular Filt Rate > 60; Glucose Random 171 mg/dL (60-115); Sodium 140 mmol/L (135-145); Total Protein 7.4 g/dL (6.5-8.0)
[2022-01-17 19:46] LABS: COVID-19 Test Negative (Negative)
[2022-01-17 20:14] LABS: Erythrocyte Sedimentation Rate 67 MM/HR (0-15)
--- NOTE | 2022-01-17 20:44 | PHA.MEDREC ---
Pharmacy Consult ? Medication Reconciliation Pharmacy has completed the medication reconciliation. Spoke with pt's clarke or fredy Lund who provided some information, but also gave me a visiting nurse phone number. Spoke with Shazia the visiting nurse who provided some doses and current medications. Pt gets meds bubble packed at [facility].
--- NOTE | 2022-01-17 21:04 | PM.IMHP ---
History of Present Illness Date of Service: 01/17/22 Chief Complaint: foot wound Kiswahili-speaking male, history is obtained with the help of an juvenile probation officer This is an 81-year-old male with past medical history of COPD, dementia, diabetes, history of CVA, HTN, HLD, presents the hospital with right toe nonhealing infection. Patient was seen in the hospital on FridayJanuary 14 and was sent home on Keflex and doxycycline, returns now stating that the wound has not healed and it appears to be more painful. Patient denies any chest pain, no abdominal pain nausea or vomiting, no diarrhea constipation, no urinary symptoms and no lower extremity edema. On arrival to the ED patient hemodynamically stable with no significant abnormal vitals Labs are significant for WBC count 9.7, ESR of 67, CRP of 0.5 Review of Systems Review of Systems: Yes all other systems are reviewed and are negative [facility] Medical History Adenocarcinoma of right lung (~2020) COPD (chronic obstructive pulmonary disease) Dementia Diabetes Former smoker, stopped smoking in distant past History of CVA (cerebrovascular accident) (~07/2020) HTN (hypertension) Hyperlipidemia Pneumonia Surgical History History of lung biopsy (~10/2020) Social History Household Members: Spouse Household Members Other:: step-son spends the night frequently Housing: Apartment Do you presently have visiting nurse or other home services: No Alcohol intake: never Patient Tobacco Use Status: Former Tobacco user Use of substances other than those prescribed or required for medical reasons: No Advance Directives: Yes Advance Directives on File: Yes Advance Directives Date on File: 05/24/21 service: No Current occupational status: retired and disabled Meds Allergies Allergy/AdvReac Type Severity Reaction Status Date / Time Penicillins [PENICILLINS] Allergy Intermediate RASH Verified 01/14/22 16:39 Active Medications: Current Medications Pharmacy Consult (Consult Rx Perform Med Rec) 1 each MISCELLANE ONCE PRN PRN Reason: Consult order Pharmacy Consult (Consult Rx Vancomycin Dosing) 1 each MISCELLANE DAILY PRN PRN Reason: Consult order Home Medications Medication Instructions Recorded Confirmed Last Taken Type amlodipine 10 mg tablet 10 mg PO BEDTIME 03/07/21 01/17/22 05/16/21 History aspirin 81 mg tablet,delayed 81 mg PO QAM 03/07/21 01/17/22 05/16/21 History release atorvastatin 80 mg tablet 80 mg PO BEDTIME 03/07/21 01/17/22 05/16/21 History omeprazole 20 mg capsule,delayed 20 mg PO QAM 03/07/21 01/17/22 05/16/21 History release hydralazine 50 mg tablet 50 mg PO BID 07/07/21 01/17/22 Unknown History metoprolol succinate 50 mg 50 mg PO DAILY 07/07/21 01/17/22 Unknown History tablet,extended release 24 hr cholecalciferol (vitamin D3) 25 1 tab PO DAILY 01/17/22 01/17/22 Unknown History mcg (1,000 unit) tablet dulaglutide 1.5 mg/0.5 mL 1.5 mg subcut QWEEK 01/17/22 01/17/22 Unknown History subcutaneous pen injector (Trulicity) insulin glargine 100 unit/mL 15 unit subcut BEDTIME 01/17/22 01/17/22 Unknown History subcutaneous solution (Lantus U-100 Insulin) Physical Exam Vital Signs and Narrative: Vital Signs: Last Vital Signs Temp 98.6 F 01/17/22 15:30 Pulse 76 01/17/22 15:30 Resp 18 01/17/22 15:30 BP 170/89 H 01/17/22 15:30 Pulse Ox 98 01/17/22 15:30 O2 Del Method 01/17/22 15:30 BMI result Body Mass Index 29.6 Const: Other: Patient oriented to self and place, able to give history of General: cooperative and no acute distress Eyes: General: appearance normal, both eyes and all related structures Resp: Effort & Inspection: normal respiratory effort Auscultation: clear to auscultation bilaterally Cardio: Rate: regular rate Rhythm: regular rhythm GI: Palpation (GI): Soft to palpation Auscultation: normal bowel sounds Skin: General skin exam: no rashes or lesions noted Neuro: Cognition (Neuro): normal cognition Extrem: Other: Right big toe wound with erythema, no drainage, significant tenderness Patient has multiple injuries to the toes appears that he cuts his nails too short and too close to the skin Results Labs CBC and Chem 7: 01/18/22 06:05 01/17/22 19:20 Labs: Laboratory Results - last 24 hr 01/17/22 01/17/22 01/17/22 19:20 19:20 19:20 MCV 80.8 MCH 25.1 L MCHC 31.0 RDW 16.3 H Plt Count 343 MPV 10.3 Immature Gran % (Auto) 0.2 Neut % (Auto) 54.2 Lymph % (Auto) 34.0 [place] % (Auto) 6.9 Eos % (Auto) 4.0 Baso % (Auto) 0.7 Lymph # (Auto) 3.3 [place] # (Auto) 0.7 Eos # (Auto) 0.4 Baso # (Auto) 0.1 Abs Immat Gran (auto) 0.02 Absolute Neuts (auto) 5.3 Absolute Nucleated RBC 0.000 Nucleated RBC % (auto) 0.0 ESR Anion Gap 17 Estim Creat Clear Calc 51.1 Estimated GFR > 60 Random Glucose 171 H Lactic Acid 1.4 Calcium 9.1 Total Bilirubin 0.4 Direct Bilirubin 0.2 AST 14 ALT 10 Alkaline Phosphatase 127 H D C-Reactive Protein Total Protein 7.4 Albumin 3.7 COVID-19 (SHANA) COVID-19 Clin Com 01/17/22 01/17/22 01/17/22 19:20 19:20 19:20 MCV MCH MCHC RDW Plt Count MPV Immature Gran % (Auto) Neut % (Auto) Lymph % (Auto) [place] % (Auto) Eos % (Auto) Baso % (Auto) Lymph # (Auto) [place] # (Auto) Eos # (Auto) Baso # (Auto) Abs Immat Gran (auto) Absolute Neuts (auto) Absolute Nucleated RBC Nucleated RBC % (auto) ESR 67 H Anion Gap Estim Creat Clear Calc Estimated GFR Random Glucose Lactic Acid Calcium Total Bilirubin Direct Bilirubin AST ALT Alkaline Phosphatase C-Reactive Protein 0.53 H Total Protein Albumin COVID-19 (SHANA) Negative COVID-19 Clin Com See Note Imaging Radiologist's Impressions: Impressions Foot X-Ray 01/17/22 18:47 IMPRESSION: 1. No tracking soft tissue gas or radiographic evidence of advanced acute osteomyelitis. If high clinical concern for osteomyelitis, suggest either radiographic follow-up or alternatively MRI. Assessment and Plan (1) Diabetic ulcer of right great toe: Status: Acute Plan 81-year-old male with past medical history of diabetes presents to the hospital with nonhealing wound of the right foot # diabetic wound infection - was on antibiotics for 4 days and reports that is getting worse - elevated ESR - will obtain MRI - at this time will start him on broad-spectrum antibiotics - follow cultures - infectious disease consulted # diabetes - low-dose sliding scale insulin - continue home insulin - diabetic diet # hypertension - stable - continue medications Quality Stroke Does the patient have a stroke diagnosis?: No VTE Prior VTE?: No VTE Risk Level:: Medical - moderate - high VTE Device Contraindication: Treatment Not Indicated VTE Drug Contraindication: N/A - Med Ordered
[2022-01-18] VITALS (9 sets, daily range): BP systolic 105–176; BP diastolic 55–78; PULSE 63–93; RESP 14–18; TEMP 36–36.8; O2SAT 91–99; BMI 29.3
[2022-01-18] MEDS: Enoxaparin Sodium 40 MG/0.4 ML SYRINGE SUBCUT (00:23)
[2022-01-18] MEDS: hydrALAZINE HCl 50 MG TABLET PO ×3 (00:23→22:11)
[2022-01-18] MEDS: Insulin Glargine,Hum.rec.anlog 100 UNIT/ML 10 ML VIAL 15 UNIT SUBCUT ×2 (00:23→22:32)
[2022-01-18] MEDS: 0.9 % Sodium Chloride Flush 3 ML SYRINGE IVFLUSH (00:24)
[2022-01-18] MEDS: Losartan Potassium 50 MG TABLET PO ×2 (00:25→09:41)
--- NOTE | 2022-01-18 04:32 | PC.NURSE ---
Scotty Lund's Number please contact with any medical info,
[2022-01-18] MEDS: cefEPime HCl 1 GM in 0.9 % Sodium Chloride 50 ML IV ×2 (06:00→19:46)
[2022-01-18] MEDS: Omeprazole 20 MG CAPSULE.DR PO (06:00)
[2022-01-18 06:49] LABS: MANUAL DIFF FLAG NO
[2022-01-18 06:59] LABS: Basophils Absolute Auto 0.1 X10*3/uL (0.0-0.2); Basophils Percent Auto 0.7 % (0-2); Eosinophils Absolute Auto 0.6 X10*3/uL (0.0-0.4); Eosinophils Percent Auto 5.6 % (0-4); Hematocrit 32.2 % (42.0-52.0); Hemoglobin 9.8 g/dl (14.0-18.0); Imm Gran Abs Auto 0.02 X10*3/uL (0.00-0.03); Imm Gran Pct Auto 0.2 % (0.0-0.4); Lymphocytes Absolute Auto 2.9 X10*3/uL (1.2-4.9); Lymphocytes Percent Auto 29.5 % (20-40); Mean Corpuscular HGB Conc 30.4 g/dl (31.0-36.0); Mean Corpuscular Hemoglobin 24.4 pg (27.0-33.0); Mean Corpuscular Volume 80.1 fL (80.0-98.0); Mean Platelet Volume 10.8 fL (9.4-12.4); Monocytes Absolute Auto 0.7 X10*3/uL (0.1-1.2); Neutrophils Absolute Auto 5.6 x10*3/uL (2.0-8.3); Platelet Count 329 X10*3/uL (160-400); Red Blood Count 4.02 X10*6/uL (4.60-5.80); Red Cell Distribution Width 16.4 % (11.0-16.0); White Blood Count 9.8 X10*3/uL (4.8-10.8)
[2022-01-18 07:26] LABS: Anion Gap 16 (12-20); Blood Urea Nitrogen 14 mg/dL (9-16); Calcium 8.8 mg/dL (8.4-10.2); Carbon Dioxide 27 mmol/L (22-29); Chloride 105 mmol/L (96-108); Creatinine Clr Calc Pharmacy 55.7; Estimated Glomerular Filt Rate > 60; Glucose Random 91 mg/dL (60-115); Potassium 3.6 mmol/L (3.3-5.1); Sodium 144 mmol/L (135-145)
[2022-01-18 07:52] LABS: Glucose, Whole Blood 71 mg/dL (60-115)
--- NOTE | 2022-01-18 07:59 | HE.PHANOTE ---
re flaca continue current dose, next trough due 01/19 @1800. Suspected auc 454, trough 13.3 thanks genesis
--- NOTE | 2022-01-18 08:08 | PC.NURSE ---
Pt sitting up eating breakfast. POC in 70's this am. no change in mentation. axox3. skin pwd. awaits MRI.
--- NOTE | 2022-01-18 08:23 | PM.CNGS ---
History of Present Illness Consult details Consult date: 01/18/22 Requesting physician: Sakshi Ruiz Narrative: 81-year-old male patient with history of COPD, dementia, diabetes mellitus, CVA, hypertension, hyperlipidemia presenting with a right great toe diabetic foot infection. He was previously placed on Keflex and doxycycline but noted increased pain in the toe. He denies a previous history of infection of the great toe. He is admitted to the hospitalist service for IV antibiotics. In the emergency department he was noted to have a WBC of 9.7 ESR of 67 CRP of 0.5. Foot x-ray obtained yesterday revealed no tracking of soft tissue gas or radiographic evidence of advanced acute osteomyelitis. Review of Systems Review of Systems: Yes all other systems are reviewed and are negative PMFSH Past Medical History Medical History Adenocarcinoma of right lung (~2020) COPD (chronic obstructive pulmonary disease) Dementia Diabetes Former smoker, stopped smoking in distant past History of CVA (cerebrovascular accident) (~07/2020) HTN (hypertension) Hyperlipidemia Pneumonia Surgical History Surgical History History of lung biopsy (~10/2020) Social History Social History Household Members: Spouse Household Members Other:: step-son spends the night frequently Housing: Apartment Do you presently have visiting nurse or other home services: No Alcohol intake: never Patient Tobacco Use Status: Former Tobacco user Use of substances other than those prescribed or required for medical reasons: No Advance Directives: Yes Advance Directives on File: Yes Advance Directives Date on File: 05/24/21 service: No Current occupational status: retired and disabled Meds Allergies Allergy/AdvReac Type Severity Reaction Status Date / Time Penicillins [PENICILLINS] Allergy Intermediate RASH Verified 01/14/22 16:39 Active Medications: Current Medications Acetaminophen (Acetaminophen 325 Mg Tablet) 650 mg PO Q6H PRN PRN Reason: Pain, Mild (Pain Scale 1-3) Amlodipine Besylate (Amlodipine Besylate 10 Mg Tablet) 10 mg PO BEDTIME [facility]; Protocol Aspirin (Aspirin Enteric Coated 81 Mg Tablet.Dr) 81 mg PO DAILY [facility] Atorvastatin Calcium (Atorvastatin Calcium 80 Mg Tablet) 80 mg PO BEDTIME [facility] Dextrose (Dextrose 50 % 25 Gm/50 Ml Syringe) 25 gm IVPUSH Q15M PRN; Protocol PRN Reason: per Hypoglycemia Standing Ord. Docusate Sodium (Docusate Sodium 100 Mg Capsule) 100 mg PO DAILY PRN PRN Reason: Constipation Enoxaparin Sodium (Enoxaparin Sodium 40 Mg/0.4 Ml Syringe) 40 mg SUBCUT Q24H [facility] Last Admin: 01/18/22 00:23 Dose: 40 mg Glucose (Glucose Gel 15 Gm Gel..Gram.) 15 gm PO Q15M PRN; Protocol PRN Reason: per Hypoglycemia Standing Ord. Hydralazine HCl (Hydralazine Hcl 50 Mg Tablet) 50 mg PO BID [facility]; Protocol Last Admin: 01/18/22 00:23 Dose: 50 mg Hydroxyzine HCl (Hydroxyzine Hcl 25 Mg Tablet) 25 mg PO Q8H PRN PRN Reason: itching Cefepime HCl 1 gm/ Sodium (Chloride) 50 mls @ 100 mls/hr IV Q12H [facility] Last Infusion: 01/18/22 06:29 Dose: Infused Vancomycin HCl 1,250 mg/ (Sodium Chloride) 250 mls @ 166.667 mls/hr IV Q24H [facility] Insulin Glargine (Insulin Glargine,Hum.Rec.Anlog 100 Unit/Ml 10 Ml Vial) 15 unit SUBCUT BEDTIME [facility] Last Admin: 01/18/22 00:23 Dose: 15 unit Insulin Human Lispro (Insulin Lispro 100 Unit/Ml 3 Ml Vial) 0 unit SUBCUT QIDACHS [facility]; Protocol Last Admin: 01/18/22 08:08 Dose: Not Given Losartan Potassium (Losartan Potassium 50 Mg Tablet) 50 mg PO DAILY [facility]; Protocol Last Admin: 01/18/22 00:25 Dose: 50 mg Metoprolol Succinate (Metoprolol Succinate Er 50 Mg Tab.Er.24h) 50 mg PO DAILY [facility]; Protocol Morphine Sulfate (Morphine Sulfate 4 Mg/Ml Cartridge) 4 mg IVPUSH Q4H PRN; Protocol PRN Reason: Pain, Severe (Pain Scale 7-10) Omeprazole (Omeprazole 20 Mg Capsule.Dr) 20 mg PO DAILY@0630 [facility] Last Admin: 01/18/22 06:00 Dose: 20 mg Ondansetron HCl (Ondansetron Hcl 4 Mg/2 Ml Vial) 4 mg IVPUSH Q8H PRN PRN Reason: Nausea and Vomiting Pharmacy Consult (Consult Rx Perform Med Rec) 1 each MISCELLANE ONCE PRN PRN Reason: Consult order Pharmacy Consult (Consult Rx Vancomycin Dosing) 1 each MISCELLANE DAILY PRN PRN Reason: Consult order Pharmacy Consult (Consult Rx Vancomycin Dosing) 1 each MISCELLANE DAILY PRN PRN Reason: Consult order Sodium Chloride (0.9 % Sodium Chloride Flush 3 Ml Syringe) 3 ml IVFLUSH QSHIFT [facility] Last Admin: 01/18/22 08:08 Dose: Not Given Vitamin D (Cholecalciferol (Vitamin D3) 25 Mcg Tablet) 25 mcg PO DAILY [facility] Home Medications Medication Instructions Recorded Confirmed Last Taken Type amlodipine 10 mg tablet 10 mg PO BEDTIME 03/07/21 01/17/22 05/16/21 History aspirin 81 mg tablet,delayed 81 mg PO QAM 03/07/21 01/17/22 05/16/21 History release atorvastatin 80 mg tablet 80 mg PO BEDTIME 03/07/21 01/17/22 05/16/21 History omeprazole 20 mg capsule,delayed 20 mg PO QAM 03/07/21 01/17/22 05/16/21 History release hydralazine 50 mg tablet 50 mg PO BID 07/07/21 01/17/22 Unknown History metoprolol succinate 50 mg 50 mg PO DAILY 07/07/21 01/17/22 Unknown History tablet,extended release 24 hr cholecalciferol (vitamin D3) 25 1 tab PO DAILY 01/17/22 01/17/22 Unknown History mcg (1,000 unit) tablet dulaglutide 1.5 mg/0.5 mL 1.5 mg subcut QWEEK 01/17/22 01/17/22 Unknown History subcutaneous pen injector (Trulicity) insulin glargine 100 unit/mL 15 unit subcut BEDTIME 01/17/22 01/17/22 Unknown History subcutaneous solution (Lantus U-100 Insulin) Physical Exam Vital Signs: Vital Signs: Last Vital Signs Temp 98.2 F 01/18/22 08:18 Pulse 63 01/18/22 07:55 Resp 18 01/18/22 07:55 BP 164/58 H 01/18/22 07:55 Pulse Ox 95 01/18/22 07:55 O2 Del Method 01/18/22 07:55 BMI result Body Mass Index 29.6 Const: General: comfortable and no acute distress Nutritional Appearance: well nourished Orientation/consciousness: patient oriented x3 Limitations: no limitations Resp: Effort & Inspection: normal respiratory effort, no audible wheezes, no cough and no respiratory distress GI: Inspection: Yes normal to inspection Skin: General skin exam: no rashes or lesions noted Neuro: General: patient oriented x3 Extrem: Other: Right great toe with an area swelling especially in the lateral nail fold with a small area of redness. Toe is tender to palpation. No skin necrosis is identified. No fluctuance to palpation. Remainder of the toes and foot are within normal limits. Results Labs Result diagrams: 01/18/22 06:05 01/18/22 06:05 Labs: Abnormal lab results 01/17/22 01/17/22 01/17/22 Range/Units 19:20 19:20 19:20 RBC 4.07 L (4.60-5.80) X10*6/uL Hgb 10.2 L (14.0-18.0) g/dl Hct 32.9 L (42.0-52.0) % MCH 25.1 L (27.0-33.0) pg MCHC (31.0-36.0) g/dl RDW 16.3 H (11.0-16.0) % Eos % (Auto) (0-4) % Eos # (Auto) (0.0-0.4) X10*3/uL ESR 67 H (0-15) MM/HR Random Glucose 171 H (60-115) mg/dL Alkaline Phosphatase 127 H D (39-117) U/L C-Reactive Protein (< or = 0.50) mg/dL 01/17/22 01/18/22 Range/Units 19:20 06:05 RBC 4.02 L (4.60-5.80) X10*6/uL Hgb 9.8 L (14.0-18.0) g/dl Hct 32.2 L (42.0-52.0) % MCH 24.4 L (27.0-33.0) pg MCHC 30.4 L (31.0-36.0) g/dl RDW 16.4 H (11.0-16.0) % Eos % (Auto) 5.6 H (0-4) % Eos # (Auto) 0.6 H (0.0-0.4) X10*3/uL ESR (0-15) MM/HR Random Glucose (60-115) mg/dL Alkaline Phosphatase (39-117) U/L C-Reactive Protein 0.53 H (< or = 0.50) mg/dL Short CBC 01/17/22 01/18/22 Range/Units 19:20 06:05 WBC 9.7 9.8 (4.8-10.8) X10*3/uL Hgb 10.2 L 9.8 L (14.0-18.0) g/dl Hct 32.9 L 32.2 L (42.0-52.0) % Plt Count 343 329 (160-400) X10*3/uL BMP 01/17/22 01/18/22 19:20 06:05 Sodium 140 144 Potassium 4.0 3.6 Chloride 103 105 Carbon Dioxide 24 27 BUN 16 14 Creatinine 1.09 1.00 Calcium 9.1 8.8 Liver Function 01/17/22 Range/Units 19:20 Total Bilirubin 0.4 (0.0-1.0) mg/dL Direct Bilirubin 0.2 (0.0-0.5) mg/dL AST 14 (5-37) U/L ALT 10 (0-40) U/L Alkaline Phosphatase 127 H D (39-117) U/L Albumin 3.7 (3.5-5.0) g/dL All other labs normal. Assessment and Plan (1) Diabetic ulcer of right great toe: Status: Acute Plan Right great toe infection associated with diabetes mellitus involving the nail fold. X-ray negative for osteomyelitis. Do not recommend surgical intervention at this time. Noninvasive vascular studies may be helpful. Recommend continuing IV antibiotics. Will monitor patient's progress during his admission. Procedures Date of Service Date of Service: 01/18/22
[2022-01-18] MEDS: Metoprolol Succinate ER 50 MG TAB.ER.24H PO (09:42)
[2022-01-18] MEDS: Cholecalciferol (Vitamin D3) 25 MCG TABLET PO (09:42)
[2022-01-18] MEDS: Aspirin Enteric Coated 81 MG TABLET.DR PO (09:42)
--- NOTE | 2022-01-18 14:26 | P.PNIM_ITS ---
Subjective Subjective Date of Service: 01/18/22 Interval History: seen and examined this morning Follow-up for right great toe foot ulcer thinks wound has been there for the past 4-5 days. Denies any associated fever or chills Review of Systems Review of Systems: Yes all other systems are reviewed and are negative Constitutional Constitutional: Denies chills and Denies fever(s) Cardiovascular Cardiovascular: Denies chest pain, Denies palpitations and Denies dyspnea Respiratory Respiratory: Denies cough and Denies dyspnea Gastrointestinal Gastrointestinal: Denies abdominal pain, Denies nausea and Denies vomiting Endocrine Endocrine: Denies palpitations Physical Exam Vital Signs: Vital Signs: Last Vital Signs Temp 98.2 F 01/18/22 08:18 Pulse 66 01/18/22 09:14 Resp 15 01/18/22 09:14 BP 148/55 H 01/18/22 09:14 Pulse Ox 99 01/18/22 09:14 O2 Del Method 01/18/22 09:14 BMI result Body Mass Index 29.6 Const: General: cooperative, comfortable, alert and awake Nutritional Appearance: average body habitus Orientation/consciousness: patient oriented x3 Resp: Effort & Inspection: normal respiratory effort and able to speak in complete sentences Cardio: Rate: regular rate Heart sounds: S1 normal heart sound present and S2 normal heart sound present GI: Inspection: No distended Palpation (GI): Soft to palpation and nontender Skin: Other: Neuro: General: patient oriented x3 Extrem: Other: able to move all 4 extremities spontaneously Objective Data Active Medications Acetaminophen (Acetaminophen 325 Mg Tablet) 650 mg PO Q6H PRN PRN Reason: Pain, Mild (Pain Scale 1-3) Amlodipine Besylate (Amlodipine Besylate 10 Mg Tablet) 10 mg PO BEDTIME [facility]; Protocol Aspirin (Aspirin Enteric Coated 81 Mg Tablet.) 81 mg PO DAILY [facility] Last Admin: 01/18/22 09:42 Dose: 81 mg Documented By: MARS Atorvastatin Calcium (Atorvastatin Calcium 80 Mg Tablet) 80 mg PO BEDTIME [facility] Dextrose (Dextrose 50 % 25 Gm/50 Ml Syringe) 25 gm IVPUSH Q15M PRN; Protocol PRN Reason: per Hypoglycemia Standing Ord. Docusate Sodium (Docusate Sodium 100 Mg Capsule) 100 mg PO DAILY PRN PRN Reason: Constipation Enoxaparin Sodium (Enoxaparin Sodium 40 Mg/0.4 Ml Syringe) 40 mg SUBCUT Q24H [facility] Last Admin: 01/18/22 00:23 Dose: 40 mg Documented By: [place] Glucose (Glucose Gel 15 Gm Gel..Gram.) 15 gm PO Q15M PRN; Protocol PRN Reason: per Hypoglycemia Standing Ord. Hydralazine HCl (Hydralazine Hcl 50 Mg Tablet) 50 mg PO BID [facility]; Protocol Last Admin: 01/18/22 09:41 Dose: 50 mg Documented By: MARS Hydroxyzine HCl (Hydroxyzine Hcl 25 Mg Tablet) 25 mg PO Q8H PRN PRN Reason: itching Cefepime HCl 1 gm/ Sodium (Chloride) 50 mls @ 100 mls/hr IV Q12H [facility] Last Infusion: 01/18/22 06:29 Dose: 0 mls/hr Documented By: [place] Vancomycin HCl 1,250 mg/ (Sodium Chloride) 250 mls @ 166.667 mls/hr IV Q24H [facility] Insulin Glargine (Insulin Glargine,Hum.Rec.Anlog 100 Unit/Ml 10 Ml Vial) 15 unit SUBCUT BEDTIME [facility] Last Admin: 01/18/22 00:23 Dose: 15 unit Documented By: [place] Insulin Human Lispro (Insulin Lispro 100 Unit/Ml 3 Ml Vial) 0 unit SUBCUT QIDACHS [facility]; Protocol Last Admin: 01/18/22 14:18 Dose: Not Given Documented By: JOHNNY Non-Admin Reason: No Insulin Coverage Losartan Potassium (Losartan Potassium 50 Mg Tablet) 50 mg PO DAILY [facility]; Protocol Last Admin: 01/18/22 09:41 Dose: 50 mg Documented By: MARS Metoprolol Succinate (Metoprolol Succinate Er 50 Mg Tab.Er.24h) 50 mg PO DAILY [facility]; Protocol Last Admin: 01/18/22 09:42 Dose: 50 mg Documented By: MARS Morphine Sulfate (Morphine Sulfate 4 Mg/Ml Cartridge) 4 mg IVPUSH Q4H PRN; Protocol PRN Reason: Pain, Severe (Pain Scale 7-10) Omeprazole (Omeprazole 20 Mg Capsule.) 20 mg PO DAILY@0630 [facility] Last Admin: 01/18/22 06:00 Dose: 20 mg Documented By: [place] Ondansetron HCl (Ondansetron Hcl 4 Mg/2 Ml Vial) 4 mg IVPUSH Q8H PRN PRN Reason: Nausea and Vomiting Pharmacy Consult (Consult Rx Perform Med Rec) 1 each MISCELLANE ONCE PRN PRN Reason: Consult order Pharmacy Consult (Consult Rx Vancomycin Dosing) 1 each MISCELLANE DAILY PRN PRN Reason: Consult order Pharmacy Consult (Consult Rx Vancomycin Dosing) 1 each MISCELLANE DAILY PRN PRN Reason: Consult order Sodium Chloride (0.9 % Sodium Chloride Flush 3 Ml Syringe) 3 ml IVFLUSH QSHIFT [facility] Last Admin: 01/18/22 08:08 Dose: Not Given Documented By: JOHNNY Non-Admin Reason: Med Not Available Vitamin D (Cholecalciferol (Vitamin D3) 25 Mcg Tablet) 25 mcg PO DAILY [facility] Last Admin: 01/18/22 09:42 Dose: 25 mcg Documented By: MARS Labs CBC & Chem 7: 01/18/22 06:05 01/18/22 06:05 Labs: Laboratory Results - last 24 hr 01/17/22 01/17/22 01/17/22 19:20 19:20 19:20 MCV 80.8 MCH 25.1 L MCHC 31.0 RDW 16.3 H Plt Count 343 MPV 10.3 Immature Gran % (Auto) 0.2 Neut % (Auto) 54.2 Lymph % (Auto) 34.0 [place] % (Auto) 6.9 Eos % (Auto) 4.0 Baso % (Auto) 0.7 Lymph # (Auto) 3.3 [place] # (Auto) 0.7 Eos # (Auto) 0.4 Baso # (Auto) 0.1 Abs Immat Gran (auto) 0.02 Absolute Neuts (auto) 5.3 Absolute Nucleated RBC 0.000 Nucleated RBC % (auto) 0.0 ESR Anion Gap 17 Estim Creat Clear Calc 51.1 Estimated GFR > 60 POC Glucose Random Glucose 171 H Lactic Acid 1.4 Calcium 9.1 Total Bilirubin 0.4 Direct Bilirubin 0.2 AST 14 ALT 10 Alkaline Phosphatase 127 H D C-Reactive Protein Total Protein 7.4 Albumin 3.7 COVID-19 (SHANA) COVID-19 Clin Com 01/17/22 01/17/22 01/17/22 19:20 19:20 19:20 MCV MCH MCHC RDW Plt Count MPV Immature Gran % (Auto) Neut % (Auto) Lymph % (Auto) [place] % (Auto) Eos % (Auto) Baso % (Auto) Lymph # (Auto) [place] # (Auto) Eos # (Auto) Baso # (Auto) Abs Immat Gran (auto) Absolute Neuts (auto) Absolute Nucleated RBC Nucleated RBC % (auto) ESR 67 H Anion Gap Estim Creat Clear Calc Estimated GFR POC Glucose Random Glucose Lactic Acid Calcium Total Bilirubin Direct Bilirubin AST ALT Alkaline Phosphatase C-Reactive Protein 0.53 H Total Protein Albumin COVID-19 (SHANA) Negative COVID-19 Clin Com See Note 01/18/22 01/18/22 01/18/22 06:05 06:05 07:45 MCV 80.1 MCH 24.4 L MCHC 30.4 L RDW 16.4 H Plt Count 329 MPV 10.8 Immature Gran % (Auto) 0.2 Neut % (Auto) 57.0 Lymph % (Auto) 29.5 [place] % (Auto) 7.0 Eos % (Auto) 5.6 H Baso % (Auto) 0.7 Lymph # (Auto) 2.9 [place] # (Auto) 0.7 Eos # (Auto) 0.6 H Baso # (Auto) 0.1 Abs Immat Gran (auto) 0.02 Absolute Neuts (auto) 5.6 Absolute Nucleated RBC 0.000 Nucleated RBC % (auto) 0.0 ESR Anion Gap 16 Estim Creat Clear Calc 55.7 Estimated GFR > 60 POC Glucose 71 Random Glucose 91 D Lactic Acid Calcium 8.8 Total Bilirubin Direct Bilirubin AST ALT Alkaline Phosphatase C-Reactive Protein Total Protein Albumin COVID-19 (SHANA) COVID-19 Clin Com Assessment and Plan (1) Diabetic ulcer of right great toe: Status: Acute Plan 81-year-old male with past medical history of diabetes presents to the hospital with nonhealing wound of the right foot diabetic wound infection of right great toe was on Keflex and doxy for 4 days and reports that is getting worse elevated ESR - MRI pending - continue vanco, cefepime - follow cultures - infectious disease consult pending diabetes SSI, POCs, ADA diet Trulicity is non formulary continue Lantus hypertension - stable - continue medications HLD continue statin DVT prophylaxis -Lovenox Attending-Dr. Carrillo patient requires ongoing inpatient hospitalization for IV antibiotics at given patient is diabetic and at risk for severe infection Quality Stroke Does the patient have a stroke diagnosis?: No VTE Prior VTE?: No VTE Risk Level:: Medical - moderate - high VTE Device Contraindication: Treatment Not Indicated VTE Drug Contraindication: N/A - Med Ordered
[2022-01-18 14:29] LABS: Glucose, Whole Blood 104 mg/dL (60-115)
--- NOTE | 2022-01-18 16:52 | W.PM.IDCN ---
History of Present Illness Data of Consult Service Date: 01/18/22 Requesting physician: Sakshi Ruiz Primary Care Provider: MD JEAN Brown Reason for consult: right great toe swelling He presents worsening right great toe pain and swelling. He was seen and started keflex and Doxycycline last week. He has negative XRay toe Review of Systems Review of Systems: Yes all other systems are reviewed and are negative PMFSH Past Medical History Medical History Adenocarcinoma of right lung (~2020) COPD (chronic obstructive pulmonary disease) Dementia Diabetes Former smoker, stopped smoking in distant past History of CVA (cerebrovascular accident) (~07/2020) HTN (hypertension) Hyperlipidemia Pneumonia Family History Family history: reviewed and not pertinent Surgical History Surgical History History of lung biopsy (~10/2020) Social History Social History Household Members: Spouse Household Members Other:: step-son spends the night frequently Housing: Apartment Do you presently have visiting nurse or other home services: No Alcohol intake: never Patient Tobacco Use Status: Former Tobacco user Use of substances other than those prescribed or required for medical reasons: No Advance Directives: Yes Advance Directives on File: Yes Advance Directives Date on File: 05/24/21 service: No Current occupational status: retired and disabled Meds Allergies Allergy/AdvReac Type Severity Reaction Status Date / Time Penicillins [PENICILLINS] Allergy Intermediate RASH Verified 01/14/22 16:39 Active Medications: Current Medications Acetaminophen (Acetaminophen 325 Mg Tablet) 650 mg PO Q6H PRN PRN Reason: Pain, Mild (Pain Scale 1-3) Amlodipine Besylate (Amlodipine Besylate 10 Mg Tablet) 10 mg PO BEDTIME [facility]; Protocol Aspirin (Aspirin Enteric Coated 81 Mg Tablet.) 81 mg PO DAILY [facility] Last Admin: 01/18/22 09:42 Dose: 81 mg Atorvastatin Calcium (Atorvastatin Calcium 80 Mg Tablet) 80 mg PO BEDTIME [facility] Dextrose (Dextrose 50 % 25 Gm/50 Ml Syringe) 25 gm IVPUSH Q15M PRN; Protocol PRN Reason: per Hypoglycemia Standing Ord. Docusate Sodium (Docusate Sodium 100 Mg Capsule) 100 mg PO DAILY PRN PRN Reason: Constipation Enoxaparin Sodium (Enoxaparin Sodium 40 Mg/0.4 Ml Syringe) 40 mg SUBCUT Q24H [facility] Last Admin: 01/18/22 00:23 Dose: 40 mg Glucose (Glucose Gel 15 Gm Gel..Gram.) 15 gm PO Q15M PRN; Protocol PRN Reason: per Hypoglycemia Standing Ord. Hydralazine HCl (Hydralazine Hcl 50 Mg Tablet) 50 mg PO BID [facility]; Protocol Last Admin: 01/18/22 09:41 Dose: 50 mg Hydroxyzine HCl (Hydroxyzine Hcl 25 Mg Tablet) 25 mg PO Q8H PRN PRN Reason: itching Cefepime HCl 1 gm/ Sodium (Chloride) 50 mls @ 100 mls/hr IV Q12H [facility] Last Infusion: 01/18/22 06:29 Dose: Infused Vancomycin HCl 1,250 mg/ (Sodium Chloride) 250 mls @ 166.667 mls/hr IV Q24H [facility] Insulin Glargine (Insulin Glargine,Hum.Rec.Anlog 100 Unit/Ml 10 Ml Vial) 15 unit SUBCUT BEDTIME [facility] Last Admin: 01/18/22 00:23 Dose: 15 unit Insulin Human Lispro (Insulin Lispro 100 Unit/Ml 3 Ml Vial) 0 unit SUBCUT QIDACHS [facility]; Protocol Last Admin: 01/18/22 14:18 Dose: Not Given Losartan Potassium (Losartan Potassium 50 Mg Tablet) 50 mg PO DAILY [facility]; Protocol Last Admin: 01/18/22 09:41 Dose: 50 mg Metoprolol Succinate (Metoprolol Succinate Er 50 Mg Tab.Er.24h) 50 mg PO DAILY [facility]; Protocol Last Admin: 01/18/22 09:42 Dose: 50 mg Morphine Sulfate (Morphine Sulfate 4 Mg/Ml Cartridge) 4 mg IVPUSH Q4H [facility]; Protocol PRN Reason: Pain, Severe (Pain Scale 7-10) Omeprazole (Omeprazole 20 Mg Capsule.Dr) 20 mg PO DAILY@0630 [facility] Last Admin: 01/18/22 06:00 Dose: 20 mg Ondansetron HCl (Ondansetron Hcl 4 Mg/2 Ml Vial) 4 mg IVPUSH Q8H PRN PRN Reason: Nausea and Vomiting Pharmacy Consult (Consult Rx Perform Med Rec) 1 each MISCELLANE ONCE PRN PRN Reason: Consult order Pharmacy Consult (Consult Rx Vancomycin Dosing) 1 each MISCELLANE DAILY PRN PRN Reason: Consult order Pharmacy Consult (Consult Rx Vancomycin Dosing) 1 each MISCELLANE DAILY PRN PRN Reason: Consult order Sodium Chloride (0.9 % Sodium Chloride Flush 3 Ml Syringe) 3 ml IVFLUSH QSHIFT [facility] Last Admin: 01/18/22 15:04 Dose: Not Given Vitamin D (Cholecalciferol (Vitamin D3) 25 Mcg Tablet) 25 mcg PO DAILY [facility] Last Admin: 01/18/22 09:42 Dose: 25 mcg Home Medications Medication Instructions Recorded Confirmed Last Taken Type amlodipine 10 mg tablet 10 mg PO BEDTIME 03/07/21 01/17/22 05/16/21 History aspirin 81 mg tablet,delayed 81 mg PO QAM 03/07/21 01/17/22 05/16/21 History release atorvastatin 80 mg tablet 80 mg PO BEDTIME 03/07/21 01/17/22 05/16/21 History omeprazole 20 mg capsule,delayed 20 mg PO QAM 03/07/21 01/17/22 05/16/21 History release hydralazine 50 mg tablet 50 mg PO BID 07/07/21 01/17/22 Unknown History metoprolol succinate 50 mg 50 mg PO DAILY 07/07/21 01/17/22 Unknown History tablet,extended release 24 hr cholecalciferol (vitamin D3) 25 1 tab PO DAILY 01/17/22 01/17/22 Unknown History mcg (1,000 unit) tablet dulaglutide 1.5 mg/0.5 mL 1.5 mg subcut QWEEK 01/17/22 01/17/22 Unknown History subcutaneous pen injector (Trulicity) insulin glargine 100 unit/mL 15 unit subcut BEDTIME 01/17/22 01/17/22 Unknown History subcutaneous solution (Lantus U-100 Insulin) Physical Exam Vital Signs: Vital Signs: Last Vital Signs Temp 98.1 F 01/18/22 14:31 Pulse 65 01/18/22 15:12 Resp 17 01/18/22 15:12 BP 165/61 H 01/18/22 15:12 Pulse Ox 98 01/18/22 15:12 O2 Del Method 01/18/22 15:12 BMI result Body Mass Index 29.6 Const: General: cooperative HEENT: Head: Yes normal to inspection Face and sinus: Yes normal facial exam Mouth: Normal oral and palatal mucosa present Teeth and gingiva: dentition normal Eyes: General: appearance normal, both eyes and all related structures Pupils: Equal, round and reactive pupils present Resp: Effort & Inspection: normal respiratory effort Cardio: Rate: regular rate Rhythm: regular rhythm GI: Palpation (GI): Soft to palpation and nontender : General: Yes no CVA tenderness Back/Spine/Pelvis: Back: no CVA tenderness Skin: General skin exam: no rashes or lesions noted Neuro: General: moves all extremities Cranial nerves: Yes Equal, round and reactive pupils present Extrem: Other: swollen right great toe,redness Psych: Appearance: grossly normal Results Labs CBC & Chem 7: 01/18/22 06:05 01/18/22 06:05 Labs: Short CBC 01/17/22 01/18/22 Range/Units 19:20 06:05 WBC 9.7 9.8 (4.8-10.8) X10*3/uL Hgb 10.2 L 9.8 L (14.0-18.0) g/dl Hct 32.9 L 32.2 L (42.0-52.0) % Plt Count 343 329 (160-400) X10*3/uL BMP 01/17/22 01/18/22 19:20 06:05 Sodium 140 144 Potassium 4.0 3.6 Chloride 103 105 Carbon Dioxide 24 27 BUN 16 14 Creatinine 1.09 1.00 Calcium 9.1 8.8 Liver Function 01/17/22 Range/Units 19:20 Total Bilirubin 0.4 (0.0-1.0) mg/dL Direct Bilirubin 0.2 (0.0-0.5) mg/dL AST 14 (5-37) U/L ALT 10 (0-40) U/L Alkaline Phosphatase 127 H D (39-117) U/L Albumin 3.7 (3.5-5.0) g/dL Assessment and Plan (1) Diabetic ulcer of right great toe: Status: Acute there is possible osteomyelitis Plan Further imaging CT or MRI Continue current antibiotics for now duration to be determined ,if no osteomyelitis po Ceftin for 14 d
[2022-01-18 18:41] LABS: Glucose, Whole Blood 166 mg/dL (60-115)
--- NOTE | 2022-01-18 19:13 | PM.EVENT ---
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 also concerned that pt with his dementia can not fill out the pre-screening form appropriately. questioning utility of MRI.
[2022-01-18] MEDS: Insulin Lispro 100 UNIT/ML 3 ML VIAL SUBCUT ×2 (19:47→22:32)
[2022-01-18 20:07] LABS: Glucose, Whole Blood 161 mg/dL (60-115)
[2022-01-18] MEDS: iohexoL 350 MG/ML 100 ML INFUS..BTL IV (21:55)
[2022-01-18 22:03] LABS: Glucose, Whole Blood 243 mg/dL (60-115)
[2022-01-18] MEDS: amLODIPine Besylate 10 MG TABLET PO (22:09)
[2022-01-18] MEDS: Atorvastatin Calcium 80 MG TABLET PO (22:11)
[2022-01-18] MEDS: vancomycin HCL 1,250 MG in 0.9 % Sodium Chloride 250 ML 166.67 MG IV (22:18)
[2022-01-19 03:32] VITALS: BP 153/72; PULSE 59; RESP 16; TEMP 36.1; O2SAT 94
[2022-01-19] MEDS: cefEPime HCl 1 GM in 0.9 % Sodium Chloride 50 ML IV (05:56)
[2022-01-19] MEDS: Omeprazole 20 MG CAPSULE.DR PO (05:56)
[2022-01-19 06:08] LABS: Hematocrit 31.6 % (42.0-52.0); Mean Corpuscular HGB Conc 31.6 g/dl (31.0-36.0); Mean Corpuscular Hemoglobin 25.2 pg (27.0-33.0); Mean Corpuscular Volume 79.6 fL (80.0-98.0); Mean Platelet Volume 10.6 fL (9.4-12.4); Platelet Count 341 X10*3/uL (160-400); Red Blood Count 3.97 X10*6/uL (4.60-5.80); Red Cell Distribution Width 16.8 % (11.0-16.0); White Blood Count 11.1 X10*3/uL (4.8-10.8)
[2022-01-19 06:47] LABS: Anion Gap 14 (12-20); Blood Urea Nitrogen 15 mg/dL (9-16); Calcium 9.2 mg/dL (8.4-10.2); Carbon Dioxide 28 mmol/L (22-29); Chloride 103 mmol/L (96-108); Creatinine Clr Calc Pharmacy 51.3; Estimated Glomerular Filt Rate > 60; Glucose Random 97 mg/dL (60-115); Potassium 3.6 mmol/L (3.3-5.1); Sodium 141 mmol/L (135-145)
[2022-01-19 07:24] VITALS: BP 149/66; PULSE 68; RESP 18; TEMP 36.4; O2SAT 97
[2022-01-19 07:39] LABS: Glucose, Whole Blood 114 mg/dL (60-115)
--- NOTE | 2022-01-19 09:47 | MHC.CM.PN ---
Patient has a diagnosis of Dementia; CM spoke with [employer] @ listed # for [employer] and addressed IMM with him (original to be mailed certified letter to [employer] and a copy has been placed on the chart). Patient lives in an apartment with his and Son and he required no DME RESIN REMOVER. Patient has a CCA RN BID r/t BS testing and home/resume said services is the goal.CM has initiated and will follow for dc planning. PCP is Dr. Ross and Patient has received [employer]/Hyperpia vax X2.
[2022-01-19] MEDS: Aspirin Enteric Coated 81 MG TABLET.DR PO (10:07)
[2022-01-19] MEDS: Losartan Potassium 50 MG TABLET PO (10:07)
[2022-01-19] MEDS: Metoprolol Succinate ER 50 MG TAB.ER.24H PO (10:07)
[2022-01-19] MEDS: hydrALAZINE HCl 50 MG TABLET PO ×2 (10:07→22:07)
[2022-01-19] MEDS: 0.9 % Sodium Chloride Flush 3 ML SYRINGE IVFLUSH ×2 (10:08→22:08)
[2022-01-19] MEDS: Cholecalciferol (Vitamin D3) 25 MCG TABLET PO (10:08)
[2022-01-19] MEDS: hydrOXYzine HCL 25 MG TABLET PO (10:26)
[2022-01-19 11:07] VITALS: BP 150/56; PULSE 70; RESP 18; TEMP 36.3; O2SAT 97
[2022-01-19 11:21] LABS: Glucose, Whole Blood 190 mg/dL (60-115)
--- NOTE | 2022-01-19 11:34 | P.PNIM_ITS ---
Subjective Subjective Date of Service: 01/19/22 Interval History: seen and examined this morning Follow-up for right great toe infection Patient reports pain in right big toe, denies any associated fever, chills Patient reports itching, legs and back - always with itching legs Review of Systems Review of Systems: Yes all other systems are reviewed and are negative Constitutional Constitutional: Denies chills and Denies fever(s) Cardiovascular Cardiovascular: Denies chest pain, Denies palpitations and Denies dyspnea Respiratory Respiratory: Denies cough and Denies dyspnea Gastrointestinal Gastrointestinal: Denies abdominal pain Endocrine Endocrine: Denies palpitations Physical Exam Vital Signs: Vital Signs: Last Vital Signs Temp 97.4 F 01/19/22 11:07 Pulse 70 01/19/22 11:07 Resp 18 01/19/22 11:07 BP 150/56 H 01/19/22 11:07 Pulse Ox 97 01/19/22 11:07 O2 Del Method 01/19/22 11:07 BMI result Body Mass Index 29.3 Const: General: cooperative, comfortable, alert and awake Nutritional Appearance: average body habitus Resp: Effort & Inspection: normal respiratory effort and able to speak in complete sentences Auscultation: clear to auscultation bilaterally Cardio: Rate: regular rate Heart sounds: S1 normal heart sound present and S2 normal heart sound present GI: Inspection: No distended Palpation (GI): Soft to palpation and nontender Extrem: Other: chronic skin changes bilateral lower extremities right great toe largely unchanged from yesterday, tender to touch Objective Data Active Medications Acetaminophen (Acetaminophen 325 Mg Tablet) 650 mg PO Q6H PRN PRN Reason: Pain, Mild (Pain Scale 1-3) Amlodipine Besylate (Amlodipine Besylate 10 Mg Tablet) 10 mg PO BEDTIME [facility]; Protocol Last Admin: 01/18/22 22:09 Dose: 10 mg Documented By: FAUSTINA Comments: pt just came to unit Aspirin (Aspirin Enteric Coated 81 Mg Tablet.) 81 mg PO DAILY [facility] Last Admin: 01/19/22 10:07 Dose: 81 mg Documented By: COLLEEN Atorvastatin Calcium (Atorvastatin Calcium 80 Mg Tablet) 80 mg PO BEDTIME [facility] Last Admin: 01/18/22 22:11 Dose: 80 mg Documented By: FAUSTINA Dextrose (Dextrose 50 % 25 Gm/50 Ml Syringe) 25 gm IVPUSH Q15M PRN; Protocol PRN Reason: per Hypoglycemia Standing Ord. Docusate Sodium (Docusate Sodium 100 Mg Capsule) 100 mg PO DAILY PRN PRN Reason: Constipation Enoxaparin Sodium (Enoxaparin Sodium 40 Mg/0.4 Ml Syringe) 40 mg SUBCUT Q24H [facility] Last Admin: 01/18/22 22:19 Dose: Not Given Documented By: FAUSTINA Non-Admin Reason: Patient Refused Glucose (Glucose Gel 15 Gm Gel..Gram.) 15 gm PO Q15M PRN; Protocol PRN Reason: per Hypoglycemia Standing Ord. Hydralazine HCl (Hydralazine Hcl 50 Mg Tablet) 50 mg PO BID [facility]; Protocol Last Admin: 01/19/22 10:07 Dose: 50 mg Documented By: COLLEEN Hydroxyzine HCl (Hydroxyzine Hcl 25 Mg Tablet) 25 mg PO Q8H PRN PRN Reason: itching Last Admin: 01/19/22 10:26 Dose: 25 mg Documented By: COLLEEN Cefepime HCl 1 gm/ Sodium (Chloride) 50 mls @ 100 mls/hr IV Q12H [facility] Last Infusion: 01/19/22 06:43 Dose: 100 mls/hr Documented By: FAUSTINA Vancomycin HCl 1,250 mg/ (Sodium Chloride) 250 mls @ 166.667 mls/hr IV Q24H [facility] Last Infusion: 01/19/22 00:03 Dose: 166.67 mls/hr Documented By: FAUSTINA Insulin Glargine (Insulin Glargine,Hum.Rec.Anlog 100 Unit/Ml 10 Ml Vial) 15 un it SUBCUT BEDTIME [facility] Last Admin: 01/18/22 22:32 Dose: 15 unit Documented By: FAUSTINA Insulin Human Lispro (Insulin Lispro 100 Unit/Ml 3 Ml Vial) 0 unit SUBCUT QIDACHS [facility]; Protocol Last Admin: 01/19/22 08:03 Dose: Not Given Documented By: COLLEEN Non-Admin Reason: No Insulin Coverage Losartan Potassium (Losartan Potassium 50 Mg Tablet) 50 mg PO DAILY [facility]; Protocol Last Admin: 01/19/22 10:07 Dose: 50 mg Documented By: COLLEEN Metoprolol Succinate (Metoprolol Succinate Er 50 Mg Tab.Er.24h) 50 mg PO DAILY [facility]; Protocol Last Admin: 01/19/22 10:07 Dose: 50 mg Documented By: COLLEEN Morphine Sulfate (Morphine Sulfate 4 Mg/Ml Cartridge) 4 mg IVPUSH Q4H PRN; Protocol PRN Reason: Pain, Severe (Pain Scale 7-10) Omeprazole (Omeprazole 20 Mg Capsule.Dr) 20 mg PO DAILY@0630 [facility] Last Admin: 01/19/22 05:56 Dose: 20 mg Documented By: FAUSTINA Ondansetron HCl (Ondansetron Hcl 4 Mg/2 Ml Vial) 4 mg IVPUSH Q8H PRN PRN Reason: Nausea and Vomiting Pharmacy Consult (Consult Rx Perform Med Rec) 1 each MISCELLANE ONCE PRN PRN Reason: Consult order Pharmacy Consult (Consult Rx Vancomycin Dosing) 1 each MISCELLANE DAILY PRN PRN Reason: Consult order Pharmacy Consult (Consult Rx Vancomycin Dosing) 1 each MISCELLANE DAILY PRN PRN Reason: Consult order Sodium Chloride (0.9 % Sodium Chloride Flush 3 Ml Syringe) 3 ml IVFLUSH QSHIFT [facility] Last Admin: 01/19/22 10:08 Dose: 3 ml Documented By: COLLEEN Vitamin D (Cholecalciferol (Vitamin D3) 25 Mcg Tablet) 25 mcg PO DAILY [facility] Last Admin: 01/19/22 10:08 Dose: 25 mcg Documented By: COLLEEN Labs CBC & Chem 7: 01/19/22 05:17 01/19/22 05:17 Labs: Laboratory Results - last 24 hr 01/18/22 01/18/22 01/18/22 14:17 18:37 19:09 MCV MCH MCHC RDW Plt Count MPV Absolute Nucleated RBC Nucleated RBC % (auto) Anion Gap Estim Creat Clear Calc Estimated GFR POC Glucose 104 166 H 161 H Random Glucose Calcium 01/18/22 01/19/22 01/19/22 21:58 05:17 05:17 MCV 79.6 L MCH 25.2 L MCHC 31.6 RDW 16.8 H Plt Count 341 MPV 10.6 Absolute Nucleated RBC 0.000 Nucleated RBC % (auto) 0.0 Anion Gap 14 Estim Creat Clear Calc 51.3 Estimated GFR > 60 POC Glucose 243 H Random Glucose 97 Calcium 9.2 01/19/22 01/19/22 07:29 11:10 MCV MCH MCHC RDW Plt Count MPV Absolute Nucleated RBC Nucleated RBC % (auto) Anion Gap Estim Creat Clear Calc Estimated GFR POC Glucose 114 190 H Random Glucose Calcium Microbiology Microbiology Results: Microbiology 01/17/22 19:31 Blood Culture - Preliminary Blood - Venous No growth after 24 hours. 01/17/22 19:20 Blood Culture - Preliminary Blood - Venous No growth after 24 hours. Assessment and Plan (1) Diabetic ulcer of right great toe: Status: Acute Plan 81-year-old male with past medical history of diabetes presents to the hospital with nonhealing wound of the right foot diabetic wound of right great toe/ acute osteomyelitis CT of right foot shows osteomyelitis of the tuft of the right great toe - continue vanco, cefepime - follow cultures - ID following - will need PICC line for [employer] ABX - blood cultures negative to date - seen by General surgery, no need for surgical intervention at this time diabetes SSI, POCs, ADA diet Trulicity is non formulary continue Lantus hypertension - stable - continue medications HLD continue statin DVT prophylaxis -Lovenox Attending-Dr. Zhao patient requires ongoing inpatient hospitalization for IV antibiotics at given patient is diabetic and at risk for severe infection Quality Stroke Does the patient have a stroke diagnosis?: No VTE Prior VTE?: No VTE Risk Level:: Medical - moderate - high VTE Device Contraindication: Treatment Not Indicated VTE Drug Contraindication: N/A - Med Ordered
[2022-01-19] MEDS: Insulin Lispro 100 UNIT/ML 3 ML VIAL SUBCUT ×3 (11:44→22:07)
[2022-01-19 15:48] VITALS: BP 178/80; PULSE 62; RESP 17; TEMP 35.9; O2SAT 95
[2022-01-19 16:07] LABS: Glucose, Whole Blood 161 mg/dL (60-115)
[2022-01-19 19:24] VITALS: BP 132/61; PULSE 58; RESP 17; TEMP 36.3; O2SAT 98
[2022-01-19 19:56] LABS: Glucose, Whole Blood 197 mg/dL (60-115)
[2022-01-19] MEDS: Enoxaparin Sodium 40 MG/0.4 ML SYRINGE SUBCUT (22:06)
[2022-01-19] MEDS: Insulin Glargine,Hum.rec.anlog 100 UNIT/ML 10 ML VIAL 15 UNIT SUBCUT (22:07)
[2022-01-19] MEDS: amLODIPine Besylate 10 MG TABLET PO (22:07)
[2022-01-19] MEDS: Atorvastatin Calcium 80 MG TABLET PO (22:07)
[2022-01-19 23:41] VITALS: BP 167/77; PULSE 64; RESP 16; TEMP 36; O2SAT 97
[2022-01-20] MEDS: hydrOXYzine HCL 25 MG TABLET PO ×2 (01:06→09:06)
[2022-01-20 03:54] VITALS: BP 138/64; PULSE 61; RESP 17; TEMP 36; O2SAT 95
[2022-01-20] MEDS: Omeprazole 20 MG CAPSULE.DR PO (06:34)
[2022-01-20 07:15] VITALS: BP 161/74; PULSE 65; RESP 18; TEMP 36.6; O2SAT 95
[2022-01-20 07:23] LABS: Glucose, Whole Blood 106 mg/dL (60-115)
[2022-01-20] MEDS: 0.9 % Sodium Chloride Flush 3 ML SYRINGE IVFLUSH ×3 (09:00→20:14)
[2022-01-20] MEDS: Cholecalciferol (Vitamin D3) 25 MCG TABLET PO (09:00)
[2022-01-20] MEDS: Metoprolol Succinate ER 50 MG TAB.ER.24H PO (09:00)
[2022-01-20] MEDS: oxyCODONE HCl Immed Release 5 MG TABLET PO (09:00)
[2022-01-20] MEDS: hydrALAZINE HCl 50 MG TABLET PO ×2 (09:00→20:09)
[2022-01-20] MEDS: Aspirin Enteric Coated 81 MG TABLET.DR PO (09:01)
[2022-01-20] MEDS: Losartan Potassium 50 MG TABLET PO (09:01)
--- NOTE | 2022-01-20 09:04 | MHC.CM.PN ---
Per AKIKO/Sakshi, Patient will need LT IVABT for Osteo and a PICC. IV Antibiotic will be Ertapenem QD. A referral has been made to [facility] and Patient is already active with a VNA. CM will follow.
--- NOTE | 2022-01-20 10:23 | MHC.CM.PN ---
RUMA was asked by Hearing Aid Specialist to return a call to [employer] (Contact) @ [phone]. CM attempted to reach [employer] but the call went to voice mail and the mailbox was full; RUMA was unable to leave a message.
--- NOTE | 2022-01-20 10:50 | P.PNIM_ITS ---
Subjective Subjective Date of Service: 01/20/22 Interval History: seen and examined this morning Follow-up for right great toe infection, imaging c/w osteomyelitis of right great toe reporting pain in right toe reporting itching - always itchy inpatient - denies having this problem at home denies any fever, chills Review of Systems Review of Systems: Yes all other systems are reviewed and are negative Constitutional Constitutional: Denies chills and Denies fever(s) Cardiovascular Cardiovascular: Denies chest pain, Denies palpitations and Denies dyspnea Respiratory Respiratory: Denies cough and Denies dyspnea Gastrointestinal Gastrointestinal: Denies abdominal pain, Denies diarrhea, Denies nausea and Denies vomiting Endocrine Endocrine: Denies palpitations Physical Exam Vital Signs: Vital Signs: Last Vital Signs Temp 97.9 F 01/20/22 07:15 Pulse 65 01/20/22 07:15 Resp 18 01/20/22 07:15 BP 161/74 H 01/20/22 07:15 Pulse Ox 95 01/20/22 07:15 O2 Del Method 01/20/22 07:15 BMI result Body Mass Index 29.3 Const: General: cooperative, comfortable, alert and awake Nutritional Appearance: average body habitus Resp: Effort & Inspection: normal respiratory effort and able to speak in complete sentences Auscultation: clear to auscultation bilaterally Cardio: Rate: regular rate Heart sounds: S1 normal heart sound present and S2 normal heart sound present GI: Inspection: No distended Palpation (GI): Soft to palpation and nontender Skin: Other: swelling improved. chronic skin changes bilateral lower leg, dry skin. Right foot edema improving Extrem: Other: Right great toe/foot erythema improving. Objective Data Active Medications Acetaminophen (Acetaminophen 325 Mg Tablet) 650 mg PO Q6H PRN PRN Reason: Pain, Mild (Pain Scale 1-3) Amlodipine Besylate (Amlodipine Besylate 10 Mg Tablet) 10 mg PO BEDTIME [facility]; Protocol Last Admin: 01/19/22 22:07 Dose: 10 mg Documented By: TIAN Aspirin (Aspirin Enteric Coated 81 Mg Tablet.) 81 mg PO DAILY [facility] Last Admin: 01/20/22 09:01 Dose: 81 mg Documented By: COLLEEN Atorvastatin Calcium (Atorvastatin Calcium 80 Mg Tablet) 80 mg PO BEDTIME [facility] Last Admin: 01/19/22 22:07 Dose: 80 mg Documented By: TIAN Dextrose (Dextrose 50 % 25 Gm/50 Ml Syringe) 25 gm IVPUSH Q15M PRN; Protocol PRN Reason: per Hypoglycemia Standing Ord. Docusate Sodium (Docusate Sodium 100 Mg Capsule) 100 mg PO DAILY PRN PRN Reason: Constipation Enoxaparin Sodium (Enoxaparin Sodium 40 Mg/0.4 Ml Syringe) 40 mg SUBCUT Q24H [facility] Last Admin: 01/19/22 22:06 Dose: 40 mg Documented By: TIAN Glucose (Glucose Gel 15 Gm Gel..Gram.) 15 gm PO Q15M PRN; Protocol PRN Reason: per Hypoglycemia Standing Ord. Hydralazine HCl (Hydralazine Hcl 50 Mg Tablet) 50 mg PO BID [facility]; Protocol Last Admin: 01/20/22 09:00 Dose: 50 mg Documented By: COLLEEN Hydroxyzine HCl (Hydroxyzine Hcl 25 Mg Tablet) 25 mg PO Q8H PRN PRN Reason: itching Last Admin: 01/20/22 09:06 Dose: 25 mg Documented By: COLLEEN Meropenem 1 gm/ Sodium (Chloride) 100 mls @ 200 mls/hr IV Q8H [facility] Last Infusion: 01/20/22 05:47 Dose: 0 mls/hr Documented By: IRON Insulin Glargine (Insulin Glargine,Hum.Rec.Anlog 100 Unit/Ml 10 Ml Vial) 15 unit SUBCUT BEDTIME [facility] Last Admin: 01/19/22 22:07 Dose: 15 unit Documented By: TIAN Insulin Human Lispro (Insulin Lispro 100 Unit/Ml 3 Ml Vial) 0 unit SUBCUT QIDACHS [facility]; Protocol Last Admin: 01/20/22 08:02 Dose: Not Given Documented By: COLLEEN Non-Admin Reason: No Insulin Coverage Losartan Potassium (Losartan Potassium 50 Mg Tablet) 50 mg PO DAILY [facility]; Protocol Last Admin: 01/20/22 09:01 Dose: 50 mg Documented By: COLLEEN Metoprolol Succinate (Metoprolol Succinate Er 50 Mg Tab.Er.24h) 50 mg PO DAILY [facility]; Protocol Last Admin: 01/20/22 09:00 Dose: 50 mg Documented By: COLLEEN Morphine Sulfate (Morphine Sulfate 4 Mg/Ml Cartridge) 4 mg IVPUSH Q4H PRN; Protocol PRN Reason: Pain, Severe (Pain Scale 7-10) Omeprazole (Omeprazole 20 Mg Capsule.Dr) 20 mg PO DAILY@0630 [facility] Last Admin: 01/20/22 06:34 Dose: 20 mg Documented By: IRON Ondansetron HCl (Ondansetron Hcl 4 Mg/2 Ml Vial) 4 mg IVPUSH Q8H PRN PRN Reason: Nausea and Vomiting Oxycodone HCl (Oxycodone Hcl Immed Release 5 Mg Tablet) 5 mg PO Q6H PRN PRN Reason: Pain, Moderate (Pain Scale 4-6 Last Admin: 01/20/22 09:00 Dose: 5 mg Documented By: COLLEEN Pharmacy Consult (Consult Rx Perform Med Rec) 1 each MISCELLANE ONCE PRN PRN Reason: Consult order Pharmacy Consult (Consult Rx Vancomycin Dosing) 1 each MISCELLANE DAILY PRN PRN Reason: Consult order Pharmacy Consult (Consult Rx Vancomycin Dosing) 1 each MISCELLANE DAILY PRN PRN Reason: Consult order Sodium Chloride (0.9 % Sodium Chloride Flush 3 Ml Syringe) 3 ml IVFLUSH QSHIFT [facility] Last Admin: 01/20/22 09:00 Dose: 3 ml Documented By: COLLEEN Vitamin D (Cholecalciferol (Vitamin D3) 25 Mcg Tablet) 25 mcg PO DAILY [facility] Last Admin: 01/20/22 09:00 Dose: 25 mcg Documented By: COLLEEN Labs CBC & Chem 7: 01/19/22 05:17 01/19/22 05:17 Labs: Laboratory Results - last 24 hr 01/19/22 01/19/22 01/19/22 11:10 16:03 19:51 POC Glucose 190 H 161 H 197 H 01/20/22 07:19 POC Glucose 106 Microbiology Microbiology Results: Microbiology 01/17/22 19:31 Blood Culture - Preliminary Blood - Venous No growth after 48 hours. 01/17/22 19:20 Blood Culture - Preliminary Blood - Venous No growth after 48 hours. Assessment and Plan (1) Osteomyelitis: Status: Acute Plan 81-year-old male with past medical history of diabetes presents to the hospital with nonhealing wound of the right foot diabetic wound of right great toe/ acute osteomyelitis CT of right foot shows osteomyelitis of the tuft of the right great toe discussed with ID, change to meropenem and discharge with ertapenem for 4 weeks - blood cultures negative to date - seen by General surgery, no need for surgical intervention at this time - artery disease right lower extremity ultrasound showing moderate to severe right SFA and posterior tibial - with likely benefit from outpatient vascular surgery evaluation - PICC line ordered for a.m. diabetes SSI, POCs, ADA diet Trulicity is non formulary continue Lantus hypertension BP not at goal, possibly due to component of pain - continue home medications HLD continue statin DVT prophylaxis -Lovenox Attending-Dr. Melvin dispo - home with director long term care abx - has nurses who come to his house twice daily for medication patient requires ongoing inpatient hospitalization for IV antibiotics at given patient is diabetic and at risk for severe infection Quality Stroke Does the patient have a stroke diagnosis?: No VTE Prior VTE?: No VTE Risk Level:: Medical - moderate - high VTE Device Contraindication: Treatment Not Indicated VTE Drug Contraindication: N/A - Med Ordered
[2022-01-20 11:22] VITALS: BP 160/56; PULSE 61; RESP 18; TEMP 36.2; O2SAT 96
[2022-01-20 11:30] LABS: Glucose, Whole Blood 184 mg/dL (60-115)
[2022-01-20] MEDS: Insulin Lispro 100 UNIT/ML 3 ML VIAL SUBCUT ×3 (11:41→20:10)
[2022-01-20 15:37] VITALS: BP 165/71; PULSE 54; RESP 20; TEMP 36.1; O2SAT 99
[2022-01-20 15:53] LABS: Glucose, Whole Blood 192 mg/dL (60-115)
[2022-01-20 19:41] VITALS: BP 157/70; PULSE 59; RESP 18; TEMP 36.1; O2SAT 100
[2022-01-20 19:58] LABS: Glucose, Whole Blood 202 mg/dL (60-115)
[2022-01-20] MEDS: Atorvastatin Calcium 80 MG TABLET PO (20:09)
[2022-01-20] MEDS: Insulin Glargine,Hum.rec.anlog 100 UNIT/ML 10 ML VIAL 15 UNIT SUBCUT (20:10)
[2022-01-20] MEDS: amLODIPine Besylate 10 MG TABLET PO (20:10)
[2022-01-20 23:33] VITALS: BP 146/66; PULSE 65; RESP 17; TEMP 36.1; O2SAT 96
[2022-01-21] VITALS (7 sets, daily range): BP systolic 134–173; BP diastolic 62–77; PULSE 66–77; RESP 16–18; TEMP 36–36.4; O2SAT 93–99
[2022-01-21] MEDS: Omeprazole 20 MG CAPSULE.DR PO (05:46)
[2022-01-21 07:24] LABS: Glucose, Whole Blood 81 mg/dL (60-115)
[2022-01-21] MEDS: Aspirin Enteric Coated 81 MG TABLET.DR PO (08:22)
[2022-01-21] MEDS: Metoprolol Succinate ER 50 MG TAB.ER.24H PO (08:22)
[2022-01-21] MEDS: hydrALAZINE HCl 50 MG TABLET PO ×2 (08:22→20:53)
[2022-01-21] MEDS: Losartan Potassium 50 MG TABLET PO (08:23)
[2022-01-21] MEDS: Cholecalciferol (Vitamin D3) 25 MCG TABLET PO (08:23)
[2022-01-21] MEDS: oxyCODONE HCl Immed Release 5 MG TABLET PO (08:27)
[2022-01-21] MEDS: 0.9 % Sodium Chloride Flush 3 ML SYRINGE IVFLUSH ×2 (08:29→15:52)
--- NOTE | 2022-01-21 09:55 | HO.PM.IMPN ---
Subjective Subjective Date of Service: 01/21/22 Interval History: seen and examined this morning Follow-up for right great toe infection, imaging c/w osteomyelitis of right great toe pain in the foot is tolerable Physical Exam Vital Signs: Vital Signs: Last Vital Signs Temp 97.6 F 01/21/22 07:14 Pulse 67 01/21/22 08:29 Resp 16 01/21/22 07:14 BP 134/62 01/21/22 08:29 Pulse Ox 97 01/21/22 07:14 O2 Del Method 01/21/22 07:14 BMI result Body Mass Index 29.3 Const: Other: Patient oriented to self and place, able to give history of General: cooperative and alert Orientation/consciousness: patient oriented x3 Resp: Effort & Inspection: normal respiratory effort and able to speak in complete sentences Auscultation: clear to auscultation bilaterally Cardio: Rate: regular rate Rhythm: regular rhythm Heart sounds: S1 normal heart sound present and S2 normal heart sound present GI: Inspection: No distended Palpation (GI): Soft to palpation and nontender Auscultation: normal bowel sounds Skin: Other: swelling improved. chronic skin changes bilateral lower leg, dry skin. Right foot edema improving General skin exam: no rashes or lesions noted Neuro: General: patient oriented x3 Cognition (Neuro): normal cognition Extrem: Other: Right great toe/foot erythema improving. Objective Data Active Medications Acetaminophen (Acetaminophen 325 Mg Tablet) 650 mg PO Q6H PRN PRN Reason: Pain, Mild (Pain Scale 1-3) Amlodipine Besylate (Amlodipine Besylate 10 Mg Tablet) 10 mg PO BEDTIME [facility]; Protocol Last Admin: 01/20/22 20:10 Dose: 10 mg Documented By: FAUSTINA Aspirin (Aspirin Enteric Coated 81 Mg Tablet.) 81 mg PO DAILY [facility] Last Admin: 01/21/22 08:22 Dose: 81 mg Documented By: SHELLEY Atorvastatin Calcium (Atorvastatin Calcium 80 Mg Tablet) 80 mg PO BEDTIME [facility] Last Admin: 01/20/22 20:09 Dose: 80 mg Documented By: FAUSTINA Dextrose (Dextrose 50 % 25 Gm/50 Ml Syringe) 25 gm IVPUSH Q15M PRN; Protocol PRN Reason: per Hypoglycemia Standing Ord. Docusate Sodium (Docusate Sodium 100 Mg Capsule) 100 mg PO DAILY PRN PRN Reason: Constipation Enoxaparin Sodium (Enoxaparin Sodium 40 Mg/0.4 Ml Syringe) 40 mg SUBCUT Q24H [facility] Last Admin: 01/20/22 20:19 Dose: Not Given Documented By: FAUSTINA Non-Admin Reason: Patient Refused Glucose (Glucose Gel 15 Gm Gel..Gram.) 15 gm PO Q15M PRN; Protocol PRN Reason: per Hypoglycemia Standing Ord. Hydralazine HCl (Hydralazine Hcl 50 Mg Tablet) 50 mg PO BID [facility]; Protocol Last Admin: 01/21/22 08:22 Dose: 50 mg Documented By: SHELLEY Hydroxyzine HCl (Hydroxyzine Hcl 25 Mg Tablet) 25 mg PO Q8H PRN PRN Reason: itching Last Admin: 01/20/22 09:06 Dose: 25 mg Documented By: COLLEEN Meropenem 1 gm/ Sodium (Chloride) 100 mls @ 200 mls/hr IV Q8H [facility] Last Infusion: 01/21/22 04:59 Dose: 200 mls/hr Documented By: FAUSTINA Insulin Glargine (Insulin Glargine,Hum.Rec.Anlog 100 Unit/Ml 10 Ml Vial) 15 unit SUBCUT BEDTIME [facility] Last Admin: 01/20/22 20:10 Dose: 15 unit Documented By: FAUSTINA Insulin Human Lispro (Insulin Lispro 100 Unit/Ml 3 Ml Vial) 0 unit SUBCUT QIDACHS [facility]; Protocol Last Admin: 01/21/22 07:55 Dose: Not Given Documented By: SHELLEY Non-Admin Reason: No Insulin Coverage Losartan Potassium (Losartan Potassium 50 Mg Tablet) 50 mg PO DAILY [facility]; Protocol Last Admin: 01/21/22 08:23 Dose: 50 mg Documented By: SHELLEY Metoprolol Succinate (Metoprolol Succinate Er 50 Mg Tab.Er.24h) 50 mg PO DAILY [facility]; Protocol Last Admin: 01/21/22 08:22 Dose: 50 mg Documented By: SHELLEY Morphine Sulfate (Morphine Sulfate 4 Mg/Ml Cartridge) 4 mg IVPUSH Q4H PRN; Protocol PRN Reason: Pain, Severe (Pain Scale 7-10) Omeprazole (Omeprazole 20 Mg Capsule.Dr) 20 mg PO DAILY@0630 [facility] Last Admin: 01/21/22 05:46 Dose: 20 mg Documented By: FAUSTINA Ondansetron HCl (Ondansetron Hcl 4 Mg/2 Ml Vial) 4 mg IVPUSH Q8H PRN PRN Reason: Nausea and Vomiting Oxycodone HCl (Oxycodone Hcl Immed Release 5 Mg Tablet) 5 mg PO Q6H PRN PRN Reason: Pain, Moderate (Pain Scale 4-6 Last Admin: 01/21/22 08:27 Dose: 5 mg Documented By: SHELLEY Pharmacy Consult (Consult Rx Perform Med Rec) 1 each MISCELLANE ONCE PRN PRN Reason: Consult order Pharmacy Consult (Consult Rx Vancomycin Dosing) 1 each MISCELLANE DAILY PRN PRN Reason: Consult order Pharmacy Consult (Consult Rx Vancomycin Dosing) 1 each MISCELLANE DAILY PRN PRN Reason: Consult order Sodium Chloride (0.9 % Sodium Chloride Flush 3 Ml Syringe) [facility] Admin: 01/21/22 08:29 Dose: 3 ml Documented By: SHELLEY Vitamin D (Cholecalciferol (Vitamin D3) 25 Mcg Tablet) 25 mcg PO DAILY [facility] Last Admin: 01/21/22 08:23 Dose: 25 mcg Documented By: SHELLEY Labs CBC & Chem 7: 01/19/22 05:17 01/19/22 05:17 Labs: Laboratory Results - last 24 hr 01/20/22 01/20/22 01/20/22 11:27 15:40 19:49 POC Glucose 184 H 192 H 202 H 01/21/22 07:19 POC Glucose 81 Assessment and Plan (1) Osteomyelitis: Status: Acute Plan 81-year-old male with past medical history of diabetes presents to the hospital with nonhealing wound of the right foot diabetic wound of right great toe/ acute osteomyelitis CT of right foot shows osteomyelitis of the tuft of the right great toe discussed with ID, change to meropenem and discharge with ertapenem for 4 weeks - blood cultures negative to date - seen by General surgery, no need for surgical intervention at this time - artery disease right lower extremity ultrasound showing moderate to severe right SFA and posterior tibial - with likely benefit from outpatient vascular surgery evaluation - PICC line ordered diabetes SSI, POCs, ADA diet Trulicity is non formulary continue Lantus hypertension BP not at goal, possibly due to component of pain - continue home medications HLD continue statin DVT prophylaxis -Lovenox dispo - home with correction abx - has nurses who come to his house twice daily for medication patient requires ongoing inpatient hospitalization for IV antibiotics at given patient is diabetic and at risk for severe infection PT to assess for need for rehab Quality Stroke Does the patient have a stroke diagnosis?: No VTE Prior VTE?: No VTE Risk Level:: Medical - moderate - high VTE Device Contraindication: Treatment Not Indicated VTE Drug Contraindication: N/A - Med Ordered
--- NOTE | 2022-01-21 10:47 | MHC.CLN ---
NUTRITION CONSULT FOR NON HEALING WOUND. DIABETIC ULCER RIGHT FOOT. DIET=DIABETIC 1800 KCAL-APPROPRIATE. INTAKE APPEARS VERY GOOD, 75-100%. NO ADDITIONAL NUTRITION INTERVENTIONS AT THIS TIME.
[2022-01-21 11:33] LABS: Glucose, Whole Blood 129 mg/dL (60-115)
--- NOTE | 2022-01-21 13:40 | MHC.CM.PN ---
PER CONVERSATION WITH STEP DAUGHTER JOLYNN ([phone]) PATIENT WILL DC WITH [facility] AND A REFERRAL TO [facility]. JOLYNN DOES NOT WOANT HOME [facility] ANY LONGER, THE AGENCY REPORTEDLY DOES NOT SHOW UP ON TIME AND OFTEN NOT AT ALL. PLAN IS FOR TRANSPRT HOME TONIGHT OR BY Friday. CASE MANAGEMENT TO UPDATE JOLYNN WITH FINAL PLAN
--- NOTE | 2022-01-21 13:51 | W.MHC.F2F ---
Service Date Service Date: 01/21/22 Encounter Date of encounter: 01/21/22 Encounter: for osteomylitis of the foot Reasons for Services Signs and symptoms assessed: Diabetic foot ulcer, osteomylitis of right big toe Reason for custodial: medication treatment Homebound: Leaving the home is medically contraindicated at this time without the asist of a device and/or another person due th the listed conditions above and below. Reason homebound: pain with ambulation Homebound supporting statement: homebound due to osteomylitis of the right big toe, diabetic foot ulcer, making ambulation difficult Certification: Based on the above findings, I certify that this patient is confined to the home and needs intermittent custodial care, physical therapy and/or speech therapy, or continues to need occupational therapy. The patient is under my care, and I have initiated the establishment of the plan of care. The patient will be followed by a physician who will periodically review the plan of care.
--- NOTE | 2022-01-21 14:53 | HO.PICC ---
PICC Line Insertion NPICC Diagnosis: [Osteomyelitis] Indication: [senior care antibx] Pertinent Labs: [Reviewed] Technique: Following informed consent including risks, benefits and alternatives and using sterile technique including cap and mask, sterile gown, glove and drape, the Right arm was prepped and draped in the usual sterile fashion of full barrier technique with [facility]. Following completion of [place] Protocol the skin and soft tissues were anesthetized with 1% Lidocaine plain. Using ultrasound guidance, Right Brachial vein attempted twice by Marysol Alvarado RN but unable to wire it, Joleen Dewitt RN accessed it on the second attempt. Over an 0.018 wire through peel-away sheath, a 4 FR Single Lumen PICC line was positioned. Catheter length is 35CM internal length, 0CM external length, for a total trimmed length of 35CM. The procedure was performed in Rm. 272. Tip verification was performed by Bishop Faulkner with Sherlock 3CG. Tip located in SVC. Ultrasound was used to document vein patency and for needle entry. A formal ultrasound picture and cardiac rhythm strip was recorded. Vascular Spray Drier has released the line for use and it is currently dressed with a StatLock, Tegaderm, and CHG disc. Verification has been performed for blood return and line patency. Arm Circumference: 32CM Equipment: In Flow POWER SOLO Catheter Type: 4FR SINGLE LUMEN PICC Lot #: [id number]
--- NOTE | 2022-01-21 15:15 | MHC.CM.PN ---
Addendum entered by Nessa Ortega 01/21/22 15:28: joanna cannot offer family refuses yousuf Original Note: PER CONVERSATION WITH FAMILY, THEY MAY NOT FEEL COMFORTABLE ADMINISTERING PICC LINE MEDICATION. [facility] DECLINED AT LAST MINUTE. 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 PLAN IS FOR REHAB REFERRALS WITH [facility]NA BEING FIRST CHOICE. FACILITY IS REVIEWING
--- NOTE | 2022-01-21 15:39 | MHC.CM.PN ---
Addendum entered by Nessa Ortega 01/21/22 15:50: DC PAPERWORK FAXED TO JEFFRY @ [phone] Original Note: FAMILY TO TRANSPORT PATIENT HOME TOMORROW (01/22/22) [facility] (JEFFRY [phone]) ARE AWARE OF PLAN AND WILLING TO OFFER SERVICES. JEFFRY VISITS PATIENT QD FOR DM MANAGEMENT AND MEDICATION ADMINISTRATION.
[2022-01-21] MEDS: Ertapenem Sodium 1 GM in 0.9 % Sodium Chloride 50 ML IV (15:51)
[2022-01-21 16:27] LABS: Glucose, Whole Blood 287 mg/dL (60-115)
[2022-01-21] MEDS: Insulin Lispro 100 UNIT/ML 3 ML VIAL SUBCUT ×2 (16:31→20:53)
[2022-01-21 19:48] LABS: Glucose, Whole Blood 220 mg/dL (60-115)
[2022-01-21] MEDS: Atorvastatin Calcium 80 MG TABLET PO (20:53)
[2022-01-21] MEDS: Insulin Glargine,Hum.rec.anlog 100 UNIT/ML 10 ML VIAL 15 UNIT SUBCUT (20:53)
[2022-01-21] MEDS: amLODIPine Besylate 10 MG TABLET PO (20:53)
[2022-01-22 03:56] VITALS: BP 152/66; PULSE 73; RESP 18; TEMP 36.6; O2SAT 94
[2022-01-22] MEDS: Omeprazole 20 MG CAPSULE.DR PO (05:51)
[2022-01-22 07:32] LABS: Glucose, Whole Blood 164 mg/dL (60-115)
[2022-01-22] MEDS: Metoprolol Succinate ER 50 MG TAB.ER.24H PO (08:13)
[2022-01-22] MEDS: Aspirin Enteric Coated 81 MG TABLET.DR PO (08:13)
[2022-01-22] MEDS: hydrALAZINE HCl 50 MG TABLET PO ×2 (08:13→21:44)
[2022-01-22] MEDS: Cholecalciferol (Vitamin D3) 25 MCG TABLET PO (08:14)
[2022-01-22] MEDS: Insulin Lispro 100 UNIT/ML 3 ML VIAL SUBCUT ×4 (08:14→21:44)
[2022-01-22] MEDS: Losartan Potassium 50 MG TABLET PO (08:14)
--- NOTE | 2022-01-22 09:37 | P.DS_ITS ---
DS: Providers Provider Date of Service: 01/21/22 Date of admission: 01/17/22 20:57 Primary care physician: Gonzales Ross MD Consults: 01/17/22 20:51 Consult to Infectious Diseases Routine Consulting Provider: Thuy Gale Reason for consultation: Non-healing wound Has provider been notified: No 01/17/22 21:01 Consult to General Surgery Routine Consulting Provider: Hu Eaton Reason for consultation: diabetic foot wound Has provider been notified: No DS: Diagnosis Discharge Diagnosis (1) Osteomyelitis: Status: Acute DS: Summary Hospital Course Hospital Course: Admission HPI Chief Complaint: foot wound Albanian-speaking male, history is obtained with the help of an recreation technician ?This is an 81-year-old male with past medical history of COPD, dementia, diabe mary, history of CVA, HTN, HLD, presents the hospital with right toe nonhealing infection.? Patient was seen in the hospital on FridayJanuary 14 and was sent home on Keflex and doxycycline, returns now stating that the wound has not healed and it appears to be more painful. Patient denies any chest pain, no abdominal pain nausea or vomiting, no diarrhea constipation, no urinary symptoms and no lower extremity edema. On arrival to the ED patient hemodynamically stable with no significant abnormal vitals Labs are significant for WBC count 9.7, ESR of 67, CRP of 0.5 Hospital course: He presentd with Diabetic wound of right great toe/ acute? osteomyelitis as evident on CT of right foot showing osteomyelitis of the tuft of the right great toe with elevated ESR of 67 ID recommend meropenem and discharge with ertapenem for 4 weeks, a PICC line is done for this. - blood cultures negative to date. Seen by General surgery, no need for surgical intervention at this time - Peripheral artery disease right lower extremity ultrasound showing moderate to severe right SFA and posterior tibial - with likely benefit from outpatient vascular surgery evaluation To continue usual meds for diabetes, HTN, HLD Time Spent with Patient Time attestation: Total time spent providing and/or coordinating discharge services: Discharge coordination time: Greater than 30 minutes Quality: Safe Use of Opioids Does Pt have an Active Cancer Diagnosis on the Problem List?: No Quality: Stroke Does the patient have a stroke diagnosis?: No Physical Exam Vital Signs: Vital Signs: Selected Entries 01/22/22 03:56 Temperature 97.8 F Pulse Rate 73 Respiratory Rate 18 Blood Pressure 152/66 H Pulse Oximetry 94 Oxygen Delivery Me thod Room Air DS: Data Data Completed and Pending Labs on day of discharge: Laboratory Results - last 24 hr 01/20/22 01/20/22 01/21/22 15:40 19:49 07:19 POC Glucose 192 H 202 H 81 01/21/22 11:25 POC Glucose 129 H Preliminary micro results at discharge 01/17/22 19:31 Blood Culture - Preliminary Blood - Venous No growth after 48 hours. 01/17/22 19:20 Blood Culture - Preliminary Blood - Venous No growth after 48 hours. Discharge Plan Discharge Anticipated Discharge Date/Time: 01/22/22 09:33 Patient Disposition: Home Health Service Discharge Diagnosis: Acute osteomylitis Referrals: [facility] [Outside] - 1 Week Gonzales Ross MD [Primary Care Provider] - 1 Week Discharge Medications: New ertapenem [Invanz] 1 gram recon soln 1 g IV Q24H Qty: 28 0RF Continued insulin glargine [Lantus U-100 Insulin] 100 unit/mL solution 15 unit subcut BEDTIME atorvastatin 80 mg tablet 80 mg PO BEDTIME aspirin 81 mg tablet,delayed release (DR/EC) 81 mg PO QAM amlodipine 10 mg tablet 10 mg PO BEDTIME omeprazole 20 mg capsule,delayed release(DR/EC) 20 mg PO QAM hydralazine 50 mg Tablet 50 mg PO BID metoprolol succinate 50 mg Tablet Extended Release 24 Hr 50 mg PO DAILY hydroxyzine HCl 25 mg tablet 25 mg PO Q8H PRN (Reason: itching) Qty: 14 0RF cholecalciferol (vitamin D3) 25 mcg (1,000 unit) tablet 1 tab PO DAILY Trulicity 1.5 mg/0.5 mL pen injector 1.5 mg subcut QWEEK losartan 50 mg Tablet 50 mg PO DAILY Qty: 0 0RF Rx Instructions: THIS WAS JUST RECENTLY INCREASED TO 100 MG (DME) compr.stocking,knee,long,large Misc See Rx Instructions .Route Qty: 12 0RF Rx Instructions: As directed (DME) compress.stocking,knee,reg,lrg Misc See Rx Instructions .Route Qty: 2 0RF Rx Instructions: As directed Discontinued cephalexin 500 mg capsule 500 mg PO QID 10 Days Qty: 40 0RF doxycycline hyclate 100 mg tablet 100 mg PO BID Qty: 20 0RF Discharge Orders: Discharge Order (Routine); Ordered 01/22/22 Ordered By: Bean Barker Diet: Diabetic diet Activity on Discharge: As tolerated Stand Alone Forms: Patient Portal Discharge page Care Plan Goals: Resolution of osteomylitis Health Concerns: Osteomylitis of the foot Plan of Treatment: Take IV Invanz daily for 28 doses Assessment: as above
--- NOTE | 2022-01-22 09:46 | MHC.CM.PN ---
PT CLEARED TO D/C HOME W/[facility] AND [facility] FOR IV ERTAPENEM X28 DAYS, PT'S FAMILY PRARRANGED A 10AM MARINE CARGO INSPECTOR.
--- NOTE | 2022-01-22 10:11 | MHC.CM.PN ---
CM RECEIVED MESSAGE FROM HEAD STILL OPERATOR THAT JOLYNN [phone] CALLED NURSES STATION AND REPORTED IV ABX AT HOME WILL NOT WORK, CM ATTEMPTED TO CALL JOLYNN BACK AT 10:10AM, NO ANSWER AND CALL WENT STRAIGHT TO VOICEMAIL, MESSAGE LEFT AND CM WILL REATTEMPT.
[2022-01-22 11:45] LABS: Glucose, Whole Blood 180 mg/dL (60-115)
[2022-01-22 12:00] VITALS: BP 142/63; PULSE 71; RESP 19; TEMP 36.3; O2SAT 98
--- NOTE | 2022-01-22 13:44 | MHC.CM.PN ---
RUMA ATTEMPTED TO CONTACT JOLYNN REGARDING VACCINE STATUS AND JOLYNN REPORTS SHE WILL NOW TAKE PT HOME AND WOULD LIKE PT TO D/C TOMORROW, RUMA DISCUSSED W/CM BLOOD TYPER WHO WILL CALL FAMILY TO FINALIZE D/C PLAN W/CM SETTING UP TRANSPORT HOME. [facility] NOTIFIED, JE[facility]RY FROM [facility] REPORTS SHE IS HAPPY TO GO IN AND DO TEACHING W/HER AND PT UNTIL SHE IS COMFORTABLE DOING PT'S DAILY IV ABX ALTHOUGH SHE HAS SET UP FOR A NURSE TO ADMINISTER PT'S IV ABX DAILY. PER NSG PT'S DRESSING IS XEROFORM AND DCD TO WOUND.
--- NOTE | 2022-01-22 13:52 | MHC.CM.PN ---
This writer technical publications left 2 voicemails for JESUS Lund, at [phone] to inform her of patient's discharge home at 7 PM and [facility] services that are in place. Requested call back. Patient aware and in agreement with discharge plan.
--- NOTE | 2022-01-22 14:29 | MHC.CM.PN ---
CM CONTACTED PT'S STEP DTR/HCP JOLYNN TO DISCUSS DISPO AND LET HER KNOW WE CAN TRANSPORT PT HOME AT 7PM, JOLYNN IS AGREEABLE AND WILL BE AT APT W/PT'S TO MEET AMBULANCE. HOSPITALIST, NSG AND UNIT AWARE.
[2022-01-22] MEDS: Ertapenem Sodium 1 GM in 0.9 % Sodium Chloride 50 ML IV (14:46)
[2022-01-22 16:00] VITALS: BP 143/93; PULSE 69; RESP 16; TEMP 36.3; O2SAT 96
[2022-01-22 16:13] LABS: Glucose, Whole Blood 215 mg/dL (60-115)
[2022-01-22] MEDS: oxyCODONE HCl Immed Release 5 MG TABLET PO (16:35)
[2022-01-22] MEDS: 0.9 % Sodium Chloride Flush 3 ML SYRINGE IVFLUSH (16:36)
[2022-01-22] MEDS: diphenhydrAMINE HCL 50 MG/ML VIAL 12.5 MG IVPUSH (17:13)
[2022-01-22 19:28] VITALS: PULSE 66; RESP 16; TEMP 35.8; O2SAT 100
[2022-01-22 19:39] VITALS: BP 171/72
[2022-01-22 21:29] LABS: Glucose, Whole Blood 211 mg/dL (60-115)
[2022-01-22] MEDS: amLODIPine Besylate 10 MG TABLET PO (21:43)
[2022-01-22] MEDS: Atorvastatin Calcium 80 MG TABLET PO (21:43)
[2022-01-22] MEDS: Insulin Glargine,Hum.rec.anlog 100 UNIT/ML 10 ML VIAL 15 UNIT SUBCUT (21:44)
[2022-01-23] VITALS: BP 169/72; PULSE 63; RESP 18; TEMP 36.2; O2SAT 98
[2022-01-23 04:00] VITALS: BP 145/67; PULSE 67; RESP 18; TEMP 36.2; O2SAT 98
[2022-01-23 07:44] LABS: Glucose, Whole Blood 109 mg/dL (60-115)
[2022-01-23] MEDS: Aspirin Enteric Coated 81 MG TABLET.DR PO (09:20)
[2022-01-23] MEDS: Metoprolol Succinate ER 50 MG TAB.ER.24H PO (09:20)
[2022-01-23] MEDS: Losartan Potassium 50 MG TABLET PO (09:20)
[2022-01-23] MEDS: Cholecalciferol (Vitamin D3) 25 MCG TABLET PO (09:20)
[2022-01-23] MEDS: hydrALAZINE HCl 50 MG TABLET PO ×2 (09:21→20:22)
[2022-01-23] MEDS: 0.9 % Sodium Chloride Flush 3 ML SYRINGE IVFLUSH ×3 (09:21→19:56)
[2022-01-23] MEDS: oxyCODONE HCl Immed Release 5 MG TABLET PO (09:26)
[2022-01-23] MEDS: Acetaminophen 325 MG TABLET 650 MG PO (09:27)
--- NOTE | 2022-01-23 11:09 | HO.PM.IMPN ---
Subjective Subjective Date of Service: 01/23/22 Interval History: seen and examined this morning Follow-up for right great toe infection, imaging c/w osteomyelitis of right great toe Patient was to go home yesterday with Invanz however developed diffuse itchiness following infusion, id is recommended changing antibiotic to vancomycin. Review of Systems No fever or chills no chest pain no pain in the foot. Physical Exam Vital Signs: Vital Signs: Last Vital Signs Temp 97.2 F 01/23/22 04:00 Pulse 67 01/23/22 04:00 Resp 18 01/23/22 04:00 BP 145/67 H 01/23/22 04:00 Pulse Ox 98 01/23/22 04:00 O2 Del Method 01/23/22 04:00 BMI result Body Mass Index 29.3 Const: Other: Patient oriented to self and place, able to give history of General: cooperative and alert Orientation/consciousness: patient oriented x3 Resp: Effort & Inspection: normal respiratory effort and able to speak in complete sentences Auscultation: clear to auscultation bilaterally Cardio: Rate: regular rate Rhythm: regular rhythm Heart sounds: S1 normal heart sound present and S2 normal heart sound present GI: Inspection: No distended Palpation (GI): Soft to palpation and nontender Auscultation: normal bowel sounds Skin: Other: swelling improved. chronic skin changes bilateral lower leg, dry skin. Right foot edema improving General skin exam: no rashes or lesions noted Neuro: General: patient oriented x3 Cognition (Neuro): normal cognition Extrem: Other: Right great toe/foot erythema improving. Objective Data Active Medications Acetaminophen (Acetaminophen 325 Mg Tablet) 650 mg PO Q6H PRN PRN Reason: Pain, Mild (Pain Scale 1-3) Last Admin: 01/23/22 09:27 Dose: 650 mg Documented By: GRANT Amlodipine Besylate (Amlodipine Besylate 10 Mg Tablet) 10 mg PO BEDTIME [facility]; Protocol Last Admin: 01/22/22 21:43 Dose: 10 mg Documented By: DONALD Aspirin (Aspirin Enteric Coated 81 Mg Tablet.) 81 mg PO DAILY [facility] Last Admin: 01/23/22 09:20 Dose: 81 mg Documented By: GRANT Atorvastatin Calcium (Atorvastatin Calcium 80 Mg Tablet) 80 mg PO BEDTIME [facility] Last Admin: 01/22/22 21:43 Dose: 80 mg Documented By: DONALD Dextrose (Dextrose 50 % 25 Gm/50 Ml Syringe) 25 gm IVPUSH Q15M PRN; Protocol PRN Reason: per Hypoglycemia Standing Ord. Diphenhydramine HCl (Diphenhydramine Hcl 50 Mg/Ml Vial) 12.5 mg IVPUSH Q6H PRN PRN Reason: Itching Last Admin: 01/22/22 17:13 Dose: 12.5 mg Documented By: DONALD Docusate Sodium (Docusate Sodium 100 Mg Capsule) 100 mg PO DAILY PRN PRN Reason: Constipation Enoxaparin Sodium (Enoxaparin Sodium 40 Mg/0.4 Ml Syringe) 40 mg SUBCUT Q24H EBER Last Admin: 01/22/22 21:44 Dose: Not Given Documented By: DONALD Non-Admin Reason: Patient Refused Glucose (Glucose Gel 15 Gm Gel..Gram.) 15 gm PO Q15M PRN; Protocol PRN Reason: per Hypoglycemia Standing Ord. Hydralazine HCl (Hydralazine Hcl 50 Mg Tablet) 50 mg PO BID [facility]; Protocol Last Admin: 01/23/22 09:21 Dose: 50 mg Documented By: GRANT Hydroxyzine HCl (Hydroxyzine Hcl 25 Mg Tablet) 25 mg PO Q8H PRN PRN Reason: itching Last Admin: 01/20/22 09:06 Dose: 25 mg Documented By: COLLEEN Insulin Glargine (Insulin Glargine,Hum.Rec.Anlog 100 Unit/Ml 10 Ml Vial) 15 unit SUBCUT BEDTIME [facility] Last Admin: 01/22/22 21:44 Dose: 15 unit Documented By: DONALD Insulin Human Lispro (Insulin Lispro 100 Unit/Ml 3 Ml Vial) 0 unit SUBCUT QIDACHS [facility]; Protocol Last Admin: 01/23/22 07:31 Dose: Not Given Documented By: GRANT Non-Admin Reason: No Insulin Coverage Losartan Potassium (Losartan Potassium 50 Mg Tablet) 50 mg PO DAILY [facility]; Protocol Last Admin: 01/23/22 09:20 Dose: 50 mg Documented By: GRANT Metoprolol Succinate (Metoprolol Succinate Er 50 Mg Tab.Er.24h) 50 mg PO DAILY [facility]; Protocol Last Admin: 01/23/22 09:20 Dose: 50 mg Documented By: GRANT Omeprazole (Omeprazole 20 Mg Capsule.) 20 mg PO DAILY@0630 [facility] Last Admin: 01/23/22 05:55 Dose: Not Given Documented By: LUCIANA Non-Admin Reason: Patient Refused Ondansetron HCl (Ondansetron Hcl 4 Mg/2 Ml Vial) 4 mg IVPUSH Q8H PRN PRN Reason: Nausea and Vomiting Oxycodone HCl (Oxycodone Hcl Immed Release 5 Mg Tablet) 5 mg PO Q6H PRN PRN Reason: Pain, Moderate (Pain Scale 4-6 Last Admin: 01/23/22 09:26 Dose: 5 mg Documented By: GRANT Pharmacy Consult (Consult Rx Perform Med Rec) 1 each MISCELLANE ONCE PRN PRN Reason: Consult order Pharmacy Consult (Consult Rx Vancomycin Dosing) 1 each MISCELLANE DAILY PRN PRN Reason: Consult order Pharmacy Consult (Consult Rx Vancomycin Dosing) 1 each MISCELLANE DAILY PRN PRN Reason: Consult order Sodium Chloride (0.9 % Sodium Chloride Flush 3 Ml Syringe) 3 ml IVFLUSH QSHIFT [facility] Last Admin: 01/23/22 09:21 Dose: 3 ml Documented By: GRANT Vitamin D (Cholecalciferol (Vitamin D3) 25 Mcg Tablet) 25 mcg PO DAILY [facility] Last Admin: 01/23/22 09:20 Dose: 25 mcg Documented By: GRANT Labs CBC & Chem 7: 01/19/22 05:17 01/19/22 05:17 Labs: Laboratory Results - last 24 hr 01/22/22 01/22/22 01/22/22 11:37 15:47 21:25 POC Glucose 180 H 215 H 211 H 01/23/22 07:25 POC Glucose 109 Microbiology Microbiology Results: Microbiology 01/17/22 19:31 Blood Culture - Final Blood - Venous No growth after 5 days. 01/17/22 19:20 Blood Culture - Final Blood - Venous No growth after 5 days. Assessment and Plan (1) Osteomyelitis: Status: Acute Plan 81-year-old male with past medical history of diabetes presents to the hospital with nonhealing wound of the right foot diabetic wound of right great toe/ acute osteomyelitis CT of right foot shows osteomyelitis of the tuft of the right great toe discussed with ID, he was on meropenem and was to be discharged with ertapenem for 4 weeks however he developed severe H&H to ertapenem and therefore Infectious Diseases recommended that we change the antibiotics to vancomycin, started vancomycin today and adjust the level and once leveled he can be discharged - blood cultures negative to date - seen by General surgery, no need for surgical intervention at this time - PICC inserted on 01/21 diabetes SSI, POCs, ADA diet Trulicity is non formulary continue Lantus hypertension BP not at goal, possibly due to component of pain - continue home medications HLD continue statin DVT prophylaxis -Lovenox dispo - home with shelter abx - has nurses who come to his house twice daily for medication patient requires ongoing inpatient hospitalization for IV antibiotics at given patient is diabetic and at risk for severe infection Need for inpatient: IV antibiotic for osteomyelitis. Quality Stroke Does the patient have a stroke diagnosis?: No VTE Prior VTE?: No VTE Risk Level:: Medical - moderate - high VTE Device Contraindication: Treatment Not Indicated VTE Drug Contraindication: N/A - Med Ordered
[2022-01-23 11:48] LABS: Glucose, Whole Blood 197 mg/dL (60-115)
[2022-01-23] MEDS: Insulin Lispro 100 UNIT/ML 3 ML VIAL SUBCUT ×3 (11:58→20:20)
[2022-01-23 12:00] VITALS: BP 124/61; PULSE 63; RESP 18; TEMP 36.5; O2SAT 99
[2022-01-23 12:23] LABS: Creatinine Clr Calc Pharmacy 43.3; Estimated Glomerular Filt Rate 54
[2022-01-23] MEDS: diphenhydrAMINE HCL 50 MG/ML VIAL 12.5 MG IVPUSH (13:12)
--- NOTE | 2022-01-23 13:32 | MHC.CM.PN ---
Addendum entered by Nessa Ortega 01/23/22 14:55: SNF REFERRALS UPDATED IN THE EVENT PATIENT REQUIRES VANCO MORE THAN QD. PER PREVIOUS CONVERSATION WITH HCP ERIC NEIL ARE FIRST CHOICE Original Note: DC HELD DUE TO PATIENT EXPERIENCING ITCHING. ACCORDING TO ID, PATIENT ABX TO BE CHANGED TO VANCOMYCIN. NO DC TODAY [facility] TO BE UPDATED
[2022-01-23 15:15] VITALS: BP 140/67; PULSE 61; RESP 18; TEMP 35.2; O2SAT 98
[2022-01-23 16:22] LABS: Glucose, Whole Blood 187 mg/dL (60-115)
--- NOTE | 2022-01-23 18:09 | PHA.PROG ---
Admission Date/Time: January 17, 2022 20:57 Indication: Bone and Joint Weight in k kg Adjusted body weight in K.9 Patterson body weight in K.5 Obesity Dosing Indication % IBW: 130% Serum Creatinine - Last 168 Hours 01/17/22 01/18/22 01/19/22 19:20 06:05 05:17 Creatinine 1.09 1.00 1.08 01/23/22 11:50 Creatinine 1.28 Estimated CrCl and GFR - Last 168 Hours 01/17/22 01/18/22 01/19/22 19:20 06:05 05:17 Estim Creat Clear Calc 51.1 55.7 51.3 Estimated GFR > 60 > 60 > 60 01/23/22 11:50 Estim Creat Clear Calc 43.3 Estimated GFR 54 Vancomycin Loading Dose: 2000 mg Current Vancomycin Dosing Regimen: 1000 mg Q24H Date and Time for next Vancomycin Level to be drawn: 01/26 @ 1100 Pharmacist Comments on Vancomycin Plan: Patient being restarted on vancomycin, last recieve vancomycin on 01/19 Patient is > 65 years and his obese since % IBW >/= 130 Loading dose vancomycin 2000 mg given 01/23 @ 1313. mainteance dose vancomycin 1000 mg Q24H to start 01/24 @ 1300. Expected AUC of 574 with a trough of of 17.3. Trough to be drawn prior to 4th dose Pharmacy to monitor renal fucntion daily Riri Camilo PharmD Vancomycin dosing will take advantage of [employer] as a clinical decision support tool that uses Bayesian modeling to calculate individual patient's pharmacokinetic parameters and forecast the patient's drug concentration time course with the target goal AUC 24 range of 400 - 600 mg/L/hr.
[2022-01-23] MEDS: Atorvastatin Calcium 80 MG TABLET PO (19:56)
[2022-01-23] MEDS: Insulin Glargine,Hum.rec.anlog 100 UNIT/ML 10 ML VIAL 15 UNIT SUBCUT (19:57)
[2022-01-23 20:11] VITALS: BP 169/78; PULSE 74; RESP 18; TEMP 36.1; O2SAT 98
[2022-01-23 20:14] LABS: Glucose, Whole Blood 201 mg/dL (60-115)
[2022-01-23] MEDS: amLODIPine Besylate 10 MG TABLET PO (20:22)
[2022-01-23 23:55] VITALS: BP 176/77; PULSE 78; RESP 17; TEMP 36.4; O2SAT 93
[2022-01-24] MEDS: oxyCODONE HCl Immed Release 5 MG TABLET PO ×2 (00:14→08:00)
[2022-01-24 03:42] VITALS: BP 160/88; PULSE 77; RESP 17; TEMP 36.3; O2SAT 96
[2022-01-24] MEDS: Omeprazole 20 MG CAPSULE.DR PO (05:38)
[2022-01-24 06:41] LABS: Creatinine Clr Calc Pharmacy 45.8; Estimated Glomerular Filt Rate 57
--- NOTE | 2022-01-24 07:05 | HE.PHANOTE ---
Vancomycin Dosing Addendum Patients Scr is down to 1.21 from 1.28. Patient has only received his load at this time. Load was properly dosed. Patient to continue 1000mg Q24H. Predicted AUC 551 mg/L/hr.
[2022-01-24 07:56] LABS: Glucose, Whole Blood 145 mg/dL (60-115)
[2022-01-24 08:00] VITALS: BP 108/53; PULSE 85; RESP 18; TEMP 36.2; O2SAT 99
[2022-01-24] MEDS: Losartan Potassium 50 MG TABLET PO (08:00)
[2022-01-24] MEDS: hydrALAZINE HCl 50 MG TABLET PO ×2 (08:00→19:53)
[2022-01-24] MEDS: 0.9 % Sodium Chloride Flush 3 ML SYRINGE IVFLUSH ×3 (08:00→21:53)
[2022-01-24] MEDS: Aspirin Enteric Coated 81 MG TABLET.DR PO (08:00)
[2022-01-24] MEDS: Metoprolol Succinate ER 50 MG TAB.ER.24H PO (08:00)
[2022-01-24] MEDS: Cholecalciferol (Vitamin D3) 25 MCG TABLET PO (08:00)
--- NOTE | 2022-01-24 09:16 | P.PNIM_ITS ---
Subjective Subjective Date of Service: 01/24/22 Interval History: seen and examined this morning Follow-up for right great toe infection, imaging c/w osteomyelitis of right great toe No new issues, seems to be tolerating IV vanco Physical Exam Vital Signs: Vital Signs: Last Vital Signs Temp 97.2 F 01/24/22 08:00 Pulse 85 01/24/22 08:00 Resp 18 01/24/22 08:00 BP 108/53 L 01/24/22 08:00 Pulse Ox 99 01/24/22 08:00 O2 Del Method 01/24/22 08:00 BMI result Body Mass Index 29.3 Const: Other: Patient oriented to self and place, able to give history of General: cooperative and alert Orientation/consciousness: patient oriented x3 Resp: Effort & Inspection: normal respiratory effort and able to speak in complete sentences Auscultation: clear to auscultation bilaterally Cardio: Rate: regular rate Rhythm: regular rhythm Heart sounds: S1 normal heart sound present and S2 normal heart sound present GI: Inspection: No distended Palpation (GI): Soft to palpation and nontender Auscultation: normal bowel sounds Skin: Other: swelling improved. chronic skin changes bilateral lower leg, dry skin. Right foot edema improving General skin exam: no rashes or lesions noted Neuro: General: patient oriented x3 Cognition (Neuro): normal cognition Extrem: Other: Right great toe/foot erythema improving. Objective Data Active Medications Acetaminophen (Acetaminophen 325 Mg Tablet) 650 mg PO Q6H PRN PRN Reason: Pain, Mild (Pain Scale 1-3) Last Admin: 01/23/22 09:27 Dose: 650 mg Documented By: GRANT Amlodipine Besylate (Amlodipine Besylate 10 Mg Tablet) 10 mg PO BEDTIME [facility]; Protocol Last Admin: 01/23/22 20:22 Dose: 10 mg Documented By: MALVIN Aspirin (Aspirin Enteric Coated 81 Mg Tablet.Dr) 81 mg PO DAILY [facility] Last Admin: 01/24/22 08:00 Dose: 81 mg Documented By: DABBronson Atorvastatin Calcium (Atorvastatin Calcium 80 Mg Tablet) 80 mg PO BEDTIME [facility] Last Admin: 01/23/22 19:56 Dose: 80 mg Documented By: MALVIN Dextrose (Dextrose 50 % 25 Gm/50 Ml Syringe) 25 gm IVPUSH Q15M PRN; Protocol PRN Reason: per Hypoglycemia Standing Ord. Diphenhydramine HCl (Diphenhydramine Hcl 50 Mg/Ml Vial) 12.5 mg IVPUSH Q6H PRN PRN Reason: Itching Last Admin: 01/23/22 13:12 Dose: 12.5 mg Documented By: HARRIET Docusate Sodium (Docusate Sodium 100 Mg Capsule) 100 mg PO DAILY PRN PRN Reason: Constipation Enoxaparin Sodium (Enoxaparin Sodium 40 Mg/0.4 Ml Syringe) 40 mg SUBCUT Q24H [facility] Last Admin: 01/23/22 21:24 Dose: Not Given Documented By: MALVIN Non-Admin Reason: Patient Refused Glucose (Glucose Gel 15 Gm Gel..Gram.) 15 gm PO Q15M PRN; Protocol PRN Reason: per Hypoglycemia Standing Ord. Hydralazine HCl (Hydralazine Hcl 50 Mg Tablet) 50 mg PO BID [facility]; Protocol Last Admin: 01/24/22 08:00 Dose: 50 mg Documented By: HARRIET Hydroxyzine HCl (Hydroxyzine Hcl 25 Mg Tablet) 25 mg PO Q8H PRN PRN Reason: itching Last Admin: 01/20/22 09:06 Dose: 25 mg Documented By: PRESTOS Vancomycin HCl 1,000 mg/ (Sodium Chloride) 270 mls @ 270 mls/hr IV Q24H [facility] Insulin Glargine (Insulin Glargine,Hum.Rec.Anlog 100 Unit/Ml 10 Ml Vial) 15 unit SUBCUT BEDTIME [facility] Last Admin: 01/23/22 19:57 Dose: 15 unit Documented By: MALVIN Insulin Human Lispro (Insulin Lispro 100 Unit/Ml 3 Ml Vial) 0 unit SUBCUT QIDACHS [facility]; Protocol Last Admin: 01/24/22 07:54 Dose: Not Given Documented By: HARRIET Non-Admin Reason: No Insulin Coverage Losartan Potassium (Losartan Potassium 50 Mg Tablet) 50 mg PO DAILY [facility]; Protocol Last Admin: 01/24/22 08:00 Dose: 50 mg Documented By: HARRIET Metoprolol Succinate (Metoprolol Succinate Er 50 Mg Tab.Er.24h) 50 mg PO DAILY [facility]; Protocol Last Admin: 01/24/22 08:00 Dose: 50 mg Documented By: HARRIET Omeprazole (Omeprazole 20 Mg Capsule.) 20 mg PO DAILY@0630 [facility] Last Admin: 01/24/22 05:38 Dose: 20 mg Documented By: MALVIN Ondansetron HCl (Ondansetron Hcl 4 Mg/2 Ml Vial) 4 mg IVPUSH Q8H PRN PRN Reason: Nausea and Vomiting Oxycodone HCl (Oxycodone Hcl Immed Release 5 Mg Tablet) 5 mg PO Q6H PRN PRN Reason: Pain, Moderate (Pain Scale 4-6 Last Admin: 01/24/22 08:00 Dose: 5 mg Documented By: HARRIET Pharmacy Consult (Consult Rx Perform Med Rec) 1 each MISCELLANE ONCE PRN PRN Reason: Consult order Pharmacy Consult (Consult Rx Vancomycin Dosing) 1 each MISCELLANE DAILY PRN PRN Reason: Consult order Pharmacy Consult (Consult Rx Vancomycin Dosing) 1 each MISCELLANE DAILY PRN PRN Reason: Consult order Pharmacy Consult (Consult Rx Vancomycin Dosing) 1 each MISCELLANE DAILY PRN PRN Reason: Consult order Sodium Chloride (0.9 % Sodium Chloride Flush 3 Ml Syringe) 3 ml IVFLUSH QSHIFT [facility] Last Admin: 01/24/22 08:00 Dose: 3 ml Documented By: HARRIET Vitamin D (Cholecalciferol (Vitamin D3) 25 Mcg Tablet) 25 mcg PO DAILY [facility] Last Admin: 01/24/22 08:00 Dose: 25 mcg Documented By: HARRIET Labs CBC & Chem 7: 01/19/22 05:17 01/24/22 06:11 Labs: Laboratory Results - last 24 hr 01/23/22 01/23/22 01/23/22 11:26 11:50 16:05 Estim Creat Clear Calc 43.3 Estimated GFR 54 POC Glucose 197 H 187 H 01/23/22 01/24/22 01/24/22 20:10 06:11 07:43 Estim Creat Clear Calc 45.8 Estimated GFR 57 POC Glucose 201 H 145 H Assessment and Plan (1) Osteomyelitis: Status: Acute Plan 81-year-old male with past medical history of diabetes presents to the hospital with nonhealing wound of the right foot diabetic wound of right great toe/ acute osteomyelitis CT of right foot shows osteomyelitis of the tuft of the right great toe discussed with ID, he was on meropenem and was to be discharged with ertapenem for 4 weeks however he developed severe H&H to ertapenem and therefore Infectious Diseases recommended that we change the antibiotics to vancomycin, started vancomycin 01/23 and adjust the level and once leveled he can be discharged - blood cultures negative to date - seen by General surgery, no need for surgical intervention at this time - PICC inserted on 01/21 diabetes SSI, POCs, ADA diet Trulicity is non formulary continue Lantus hypertension BP not at goal, possibly due to component of pain - continue home medications HLD continue statin DVT prophylaxis -Lovenox dispo - home with terminal clerk abx - has nurses who come to his house twice daily for medication patient requires ongoing inpatient hospitalization for IV antibiotics at given patient is diabetic and at risk for severe infection Need for inpatient: IV antibiotic for osteomyelitis and monitoring Vancomycin level Quality Stroke Does the patient have a stroke diagnosis?: No VTE Prior VTE?: No VTE Risk Level:: Medical - moderate - high VTE Device Contraindication: Treatment Not Indicated VTE Drug Contraindication: N/A - Med Ordered
[2022-01-24 11:29] VITALS: BP 152/66; PULSE 80; RESP 16; TEMP 36.6; O2SAT 99
[2022-01-24 11:41] VITALS: BP 152/66; PULSE 68; RESP 18; TEMP 36.6; O2SAT 96
[2022-01-24 11:41] LABS: Glucose, Whole Blood 194 mg/dL (60-115)
[2022-01-24] MEDS: Insulin Lispro 100 UNIT/ML 3 ML VIAL SUBCUT ×2 (12:01→16:29)
[2022-01-24] MEDS: diphenhydrAMINE HCL 50 MG/ML VIAL 12.5 MG IVPUSH (12:58)
[2022-01-24] MEDS: vancomycin HCL 1,000 MG in 0.9 % Sodium Chloride 250 ML 270 MG IV (13:00)
[2022-01-24 15:48] VITALS: BP 140/63; PULSE 69; RESP 18; TEMP 36.2; O2SAT 94
[2022-01-24 16:03] LABS: Glucose, Whole Blood 157 mg/dL (60-115)
[2022-01-24] MEDS: amLODIPine Besylate 10 MG TABLET PO (19:53)
[2022-01-24] MEDS: Atorvastatin Calcium 80 MG TABLET PO (19:53)
--- NOTE | 2022-01-24 19:58 | PC.NURSE ---
PT refused point of care at 1945. PT educated on importance of POC and insulin due to DM. PT still refused. Lantus and humalog refused.
[2022-01-25] VITALS: BP 167/71; PULSE 76; RESP 19; TEMP 36; O2SAT 97
[2022-01-25 04:00] VITALS: BP 143/63; PULSE 72; RESP 17; TEMP 36.4; O2SAT 94
[2022-01-25] MEDS: Omeprazole 20 MG CAPSULE.DR PO (05:20)
[2022-01-25 06:08] LABS: Creatinine Clr Calc Pharmacy 39.3; Estimated Glomerular Filt Rate 48
--- NOTE | 2022-01-25 07:04 | HE.PHANOTE ---
Patient Cr increase to 1.41 today. Due to declinei renal function current regiemn is expected to be supratherapetuic. Will decrease to vancomycin 750 mg Q24H. Expected AUC 476 with a trough of 14.8. Trough to be drawn 01/25 @ 1100. Riri Camilo, CortneyD
[2022-01-25] MEDS: Metoprolol Succinate ER 50 MG TAB.ER.24H PO (09:20)
[2022-01-25] MEDS: Cholecalciferol (Vitamin D3) 25 MCG TABLET PO (09:21)
[2022-01-25] MEDS: 0.9 % Sodium Chloride Flush 3 ML SYRINGE IVFLUSH ×3 (09:21→20:47)
[2022-01-25] MEDS: hydrALAZINE HCl 50 MG TABLET PO ×2 (09:21→20:24)
[2022-01-25] MEDS: Aspirin Enteric Coated 81 MG TABLET.DR PO (09:21)
[2022-01-25] MEDS: Losartan Potassium 50 MG TABLET PO (09:21)
[2022-01-25 11:23] VITALS: BP 145/67; PULSE 88; RESP 17; TEMP 36.3; O2SAT 99
[2022-01-25 11:45] LABS: Glucose, Whole Blood 301 mg/dL (60-115)
--- NOTE | 2022-01-25 11:45 | HO.PM.IMPN ---
Subjective Subjective Date of Service: 01/25/22 Interval History: seen and examined this morning Follow-up for right great toe infection, imaging c/w osteomyelitis of right great toe No new issues, seems to be tolerating IV vanco, renal function is slightly Review of Systems no fever no pain no itchyness Physical Exam Vital Signs: Vital Signs: Last Vital Signs Temp 97.3 F 01/25/22 11:23 Pulse 88 01/25/22 11:23 Resp 17 01/25/22 11:23 BP 145/67 H 01/25/22 11:23 Pulse Ox 99 01/25/22 11:23 O2 Del Method 01/25/22 11:23 BMI result Body Mass Index 29.3 Objective Data Active Medications Acetaminophen (Acetaminophen 325 Mg Tablet) 650 mg PO Q6H PRN PRN Reason: Pain, Mild (Pain Scale 1-3) Last Admin: 01/23/22 09:27 Dose: 650 mg Documented By: GRANT Amlodipine Besylate (Amlodipine Besylate 10 Mg Tablet) 10 mg PO BEDTIME [facility]; Protocol Last Admin: 01/24/22 19:53 Dose: 10 mg Documented By: MALVIN Aspirin (Aspirin Enteric Coated 81 Mg Tablet.) 81 mg PO DAILY [facility] Last Admin: 01/25/22 09:21 Dose: 81 mg Documented By: FREDDIE Atorvastatin Calcium (Atorvastatin Calcium 80 Mg Tablet) 80 mg PO BEDTIME [facility] Last Admin: 01/24/22 19:53 Dose: 80 mg Documented By: MALVIN Dextrose (Dextrose 50 % 25 Gm/50 Ml Syringe) 25 gm IVPUSH Q15M PRN; Protocol PRN Reason: per Hypoglycemia Standing Ord. Diphenhydramine HCl (Diphenhydramine Hcl 50 Mg/Ml Vial) 12.5 mg IVPUSH Q6H PRN PRN Reason: Itching Last Admin: 01/24/22 12:58 Dose: 12.5 mg Documented By: DABA Docusate Sodium (Docusate Sodium 100 Mg Capsule) 100 mg PO DAILY PRN PRN Reason: Constipation Enoxaparin Sodium (Enoxaparin Sodium 40 Mg/0.4 Ml Syringe) 40 mg SUBCUT Q24H [facility] Last Admin: 01/24/22 21:22 Dose: Not Given Documented By: MALVIN Non-Admin Reason: Patient Refused Glucose (Glucose Gel 15 Gm Gel..Gram.) 15 gm PO Q15M PRN; Protocol PRN Reason: per Hypoglycemia Standing Ord. Hydralazine HCl (Hydralazine Hcl 50 Mg Tablet) 50 mg PO BID [facility]; Protocol Last Admin: 01/25/22 09:21 Dose: 50 mg Documented By: FREDDIE Hydroxyzine HCl (Hydroxyzine Hcl 25 Mg Tablet) 25 mg PO Q8H PRN PRN Reason: itching Last Admin: 01/20/22 09:06 Dose: 25 mg Documented By: COLLEEN Vancomycin HCl 750 mg/ Sodium (Chloride) 265 mls @ 265 mls/hr IV Q24H [facility] Insulin Glargine (Insulin Glargine,Hum.Rec.Anlog 100 Unit/Ml 10 Ml Vial) 15 unit SUBCUT BEDTIME [facility] Last Admin: 01/24/22 19:56 Dose: Not Given Documented By: MALVIN Non-Admin Reason: PT refused point of care and snack Insulin Human Lispro (Insulin Lispro 100 Unit/Ml 3 Ml Vial) 0 unit SUBCUT QIDACHS [facility]; Protocol Last Admin: 01/25/22 09:21 Dose: Not Given Documented By: FREDDIE Non-Admin Reason: Patient Refused Losartan Potassium (Losartan Potassium 50 Mg Tablet) 50 mg PO DAILY [facility]; Protocol Last Admin: 01/25/22 09:21 Dose: 50 mg Documented By: FREDDIE Metoprolol Succinate (Metoprolol Succinate Er 50 Mg Tab.Er.24h) 50 mg PO DAILY [facility]; Protocol Last Admin: 01/25/22 09:20 Dose: 50 mg Documented By: FREDDIE Omeprazole (Omeprazole 20 Mg Capsule.Dr) 20 mg PO DAILY@0630 [facility] Last Admin: 01/25/22 05:20 Dose: 20 mg Documented By: MALVIN Ondansetron HCl (Ondansetron Hcl 4 Mg/2 Ml Vial) 4 mg IVPUSH Q8H PRN PRN Reason: Nausea and Vomiting Pharmacy Consult (Consult Rx Perform Med Rec) 1 each MISCELLANE ONCE PRN PRN Reason: Consult order Pharmacy Consult (Consult Rx Vancomycin Dosing) 1 each MISCELLANE DAILY PRN PRN Reason: Consult order Pharmacy Consult (Consult Rx Vancomycin Dosing) 1 each MISCELLANE DAILY PRN PRN Reason: Consult order Pharmacy Consult (Consult Rx Vancomycin Dosing) 1 each MISCELLANE DAILY PRN PRN Reason: Consult order Sodium Chloride (0.9 % Sodium Chloride Flush 3 Ml Syringe) 3 ml IVFLUSH QSHIFT [facility] Last Admin: 01/25/22 09:21 Dose: 3 ml Documented By: FREDDIE Vitamin D (Cholecalciferol (Vitamin D3) 25 Mcg Tablet) 25 mcg PO DAILY [facility] Last Admin: 01/25/22 09:21 Dose: 25 mcg Documented By: FREDDIE Labs CBC & Chem 7: 01/19/22 05:17 01/25/22 05:21 Labs: Laboratory Results - last 24 hr 01/24/22 01/25/22 15:46 05:21 Estim Creat Clear Calc 39.3 Estimated GFR 48 POC Glucose 157 H Assessment and Plan (1) Osteomyelitis: Status: Acute Plan 81-year-old male with past medical history of diabetes presents to the hospital with nonhealing wound of the right foot Wound associated with diabetes complicated by acute osteomyelitis CT of right foot shows osteomyelitis of the tuft of the right great toe discussed with ID, he was on meropenem and was to be discharged with ertapenem for 4 weeks however he developed severe H&H to ertapenem and therefore Infectious Diseases recommended that we change the antibiotics to vancomycin, started vancomycin 01/23 and adjust the level and once leveled he can be discharged - blood cultures negative to date - seen by General surgery, no need for surgical intervention at this time - PICC inserted on 01/21 diabetes SSI, POCs, ADA diet Trulicity is non formulary continue Lantus hypertension BP not at goal, possibly due to component of pain - continue home medications HLD continue statin ELIAZBETH--?pre renal but monitor for Vanco related DVT prophylaxis -Lovenox dispo - 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
[2022-01-25] MEDS: Acetaminophen 325 MG TABLET 650 MG PO ×2 (11:46→20:52)
[2022-01-25] MEDS: Insulin Lispro 100 UNIT/ML 3 ML VIAL SUBCUT ×3 (11:59→20:46)
[2022-01-25] MEDS: vancomycin HCL 750 MG in 0.9 % Sodium Chloride 250 ML 265 MG IV (13:00)
[2022-01-25 16:00] VITALS: BP 141/60; PULSE 68; RESP 20; TEMP 36.4; O2SAT 99
[2022-01-25 16:17] LABS: Glucose, Whole Blood 153 mg/dL (60-115)
[2022-01-25 20:00] VITALS: BP 149/66; PULSE 74; RESP 20; TEMP 36.2; O2SAT 100
[2022-01-25 20:17] LABS: Glucose, Whole Blood 163 mg/dL (60-115)
[2022-01-25] MEDS: amLODIPine Besylate 10 MG TABLET PO (20:20)
[2022-01-25] MEDS: Atorvastatin Calcium 80 MG TABLET PO (20:20)
[2022-01-25] MEDS: Insulin Glargine,Hum.rec.anlog 100 UNIT/ML 10 ML VIAL 15 UNIT SUBCUT (20:21)
[2022-01-25 23:30] VITALS: BP 119/53; PULSE 75; RESP 17; TEMP 36.2; O2SAT 97
[2022-01-26 03:28] VITALS: BP 120/51; PULSE 74; RESP 16; TEMP 36.4; O2SAT 95
[2022-01-26] MEDS: Omeprazole 20 MG CAPSULE.DR PO (05:09)
[2022-01-26] MEDS: Acetaminophen 325 MG TABLET 650 MG PO (05:12)
[2022-01-26 07:16] LABS: Creatinine Clr Calc Pharmacy 42.3; Estimated Glomerular Filt Rate 52
[2022-01-26 07:51] LABS: Glucose, Whole Blood 117 mg/dL (60-115)
[2022-01-26 08:00] VITALS: BP 144/64; PULSE 69; RESP 18; TEMP 36.2; O2SAT 95
--- NOTE | 2022-01-26 09:02 | HO.PM.IMPN ---
Subjective Subjective Date of Service: 01/26/22 Interval History: Follow-up for right great toe infection, osteomyelitis of right great toe No new issues, continues to tolerate vancomcyin, renal function improved Review of Systems no fever no pain no itchyness Physical Exam Vital Signs: Vital Signs: Last Vital Signs Temp 97.2 F 01/26/22 08:00 Pulse 69 01/26/22 08:00 Resp 18 01/26/22 08:00 BP 144/64 H 01/26/22 08:00 Pulse Ox 95 01/26/22 08:00 O2 Del Method 01/26/22 08:00 BMI result Body Mass Index 29.3 Const: Other: Patient oriented to self and place, able to give history of General: cooperative and alert Orientation/consciousness: patient oriented x3 Resp: Effort & Inspection: normal respiratory effort and able to speak in complete sentences Auscultation: clear to auscultation bilaterally Cardio: Rate: regular rate Rhythm: regular rhythm Heart sounds: S1 normal heart sound present and S2 normal heart sound present GI: Inspection: No distended Palpation (GI): Soft to palpation and nontender Auscultation: normal bowel sounds Skin: Other: swelling improved. chronic skin changes bilateral lower leg, dry skin. Right foot edema improving General skin exam: no rashes or lesions noted Neuro: General: patient oriented x3 Cognition (Neuro): normal cognition Extrem: Other: Right great toe/foot erythema improving. Objective Data Active Medications Acetaminophen (Acetaminophen 325 Mg Tablet) 650 mg PO Q6H PRN PRN Reason: Pain, Mild (Pain Scale 1-3) Last Admin: 01/26/22 05:12 Dose: 650 mg Documented By: MALVIN Amlodipine Besylate (Amlodipine Besylate 10 Mg Tablet) 10 mg PO BEDTIME [facility]; Protocol Last Admin: 01/25/22 20:20 Dose: 10 mg Documented By: MALVIN Aspirin (Aspirin Enteric Coated 81 Mg Tablet.) 81 mg PO DAILY [facility] Last Admin: 01/25/22 09:21 Dose: 81 mg Documented By: FREDDIE Atorvastatin Calcium (Atorvastatin Calcium 80 Mg Tablet) 80 mg PO BEDTIME [facility] Last Admin: 01/25/22 20:20 Dose: 80 mg Documented By: MALVIN Dextrose (Dextrose 50 % 25 Gm/50 Ml Syringe) 25 gm IVPUSH Q15M PRN; Protocol PRN Reason: per Hypoglycemia Standing Ord. Diphenhydramine HCl (Diphenhydramine Hcl 50 Mg/Ml Vial) 12.5 mg IVPUSH Q6H PRN PRN Reason: Itching Last Admin: 01/24/22 12:58 Dose: 12.5 mg Documented By: DABA Docusate Sodium (Docusate Sodium 100 Mg Capsule) 100 mg PO DAILY PRN PRN Reason: Constipation Enoxaparin Sodium (Enoxaparin Sodium 40 Mg/0.4 Ml Syringe) 40 mg SUBCUT Q24H [facility] Last Admin: 01/25/22 20:47 Dose: Not Given Documented By: MALVIN Non-Admin Reason: Patient Refused Glucose (Glucose Gel 15 Gm Gel..Gram.) 15 gm PO Q15M PRN; Protocol PRN Reason: per Hypoglycemia Standing Ord. Hydralazine HCl (Hydralazine Hcl 50 Mg Tablet) 50 mg PO BID [facility]; Protocol Last Admin: 01/25/22 20:24 Dose: 50 mg Documented By: MALVIN Hydroxyzine HCl (Hydroxyzine Hcl 25 Mg Tablet) 25 mg PO Q8H PRN PRN Reason: itching Last Admin: 01/20/22 09:06 Dose: 25 mg Documented By: PRESTGINA Vancomycin HCl 750 mg/ Sodium (Chloride) 265 mls @ 265 mls/hr IV Q24H [facility] Last Infusion: 01/25/22 14:19 Dose: 0 mls/hr Documented By: FREDDIE Insulin Glargine (Insulin Glargine,Hum.Rec.Anlog 100 Unit/Ml 10 Ml Vial) 15 unit SUBCUT BEDTIME [facility] Last Admin: 01/25/22 20:21 Dose: 15 unit Documented By: MALVIN Insulin Human Lispro (Insulin Lispro 100 Unit/Ml 3 Ml Vial) 0 unit SUBCUT QIDACHS [facility]; Protocol Last Admin: 01/26/22 07:49 Dose: Not Given Documented By: EDGAR Non-Admin Reason: No Insulin Coverage Losartan Potassium (Losartan Potassium 50 Mg Tablet) 50 mg PO DAILY [facility]; Protocol Last Admin: 01/25/22 09:21 Dose: 50 mg Documented By: FREDDIE Metoprolol Succinate (Metoprolol Succinate Er 50 Mg Tab.Er.24h) 50 mg PO DAILY [facility]; Protocol Last Admin: 01/25/22 09:20 Dose: 50 mg Documented By: FREDDIE Omeprazole (Omeprazole 20 Mg Capsule.) 20 mg PO DAILY@0630 [facility] Last Admin: 01/26/22 05:09 Dose: 20 mg Documented By: MALVIN Ondansetron HCl (Ondansetron Hcl 4 Mg/2 Ml Vial) 4 mg IVPUSH Q8H PRN PRN Reason: Nausea and Vomiting Pharmacy Consult (Consult Rx Perform Med Rec) 1 each MISCELLANE ONCE PRN PRN Reason: Consult order Pharmacy Consult (Consult Rx Vancomycin Dosing) 1 each MISCELLANE DAILY PRN PRN Reason: Consult order Pharmacy Consult (Consult Rx Vancomycin Dosing) 1 each MISCELLANE DAILY PRN PRN Reason: Consult order Pharmacy Consult (Consult Rx Vancomycin Dosing) 1 each MISCELLANE DAILY PRN PRN Reason: Consult order Sodium Chloride (0.9 % Sodium Chloride Flush 3 Ml Syringe) 3 ml IVFLUSH QSHIFT [facility] Last Admin: 01/25/22 20:47 Dose: 3 ml Documented By: MALVIN Vitamin D (Cholecalciferol (Vitamin D3) 25 Mcg Tablet) 25 mcg PO DAILY [facility] Last Admin: 01/25/22 09:21 Dose: 25 mcg Documented By: FREDDIE Labs CBC & Chem 7: 01/19/22 05:17 01/26/22 05:54 Labs: Laboratory Results - last 24 hr 01/25/22 01/25/22 01/25/22 11:26 15:51 20:08 Estim Creat Clear Calc Estimated GFR POC Glucose 301 H 153 H 163 H 01/26/22 01/26/22 05:54 07:48 Estim Creat Clear Calc 42.3 Estimated GFR 52 POC Glucose 117 H Assessment and Plan (1) Osteomyelitis: Status: Acute Plan 81-year-old male with past medical history of diabetes presents to the hospital with nonhealing wound of the right foot #Woud associated with diabetes # Osteomyelitis of the tuft of the right great toe -Surgery advises Abx and if fails then amputation -Didn't tolerate Invanz d/t pruritis - PICC inserted on 01/21 -ID advises Vanco for 6 week, level being adjuted for dc home #Diabetes--Ok control -Continue Lantus -SSI, POCs, ADA diet - Trulicity is non formulary hypertension--Acceptable control HLD continue statin ELIZABETH--?pre renal but monitor for Vanco related--> Improved DVT prophylaxis -Lovenox dispo - 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
[2022-01-26] MEDS: Metoprolol Succinate ER 50 MG TAB.ER.24H PO (09:44)
[2022-01-26] MEDS: Cholecalciferol (Vitamin D3) 25 MCG TABLET PO (09:44)
[2022-01-26] MEDS: 0.9 % Sodium Chloride Flush 3 ML SYRINGE IVFLUSH ×2 (09:44→15:17)
[2022-01-26] MEDS: hydrALAZINE HCl 50 MG TABLET PO ×2 (09:44→22:11)
[2022-01-26] MEDS: Aspirin Enteric Coated 81 MG TABLET.DR PO (09:45)
[2022-01-26] MEDS: Losartan Potassium 50 MG TABLET PO (09:45)
[2022-01-26 10:57] VITALS: BP 153/67; PULSE 68; RESP 18; TEMP 36.1; O2SAT 99
[2022-01-26 11:26] LABS: Vancomycin Trough 10.7 mcg/mL (10.0-20.0)
[2022-01-26 11:28] LABS: Glucose, Whole Blood 202 mg/dL (60-115)
--- NOTE | 2022-01-26 11:46 | HE.PHANOTE ---
Patient trough 10.7, based on insight pts auc wouldnt be therapeutic (345), increase dose to 1000 mg q24h predicted auc 459, trough 10.8, next level 01/28@1100
[2022-01-26] MEDS: Insulin Lispro 100 UNIT/ML 3 ML VIAL SUBCUT ×3 (11:48→22:12)
[2022-01-26] MEDS: vancomycin HCL 1,000 MG in 0.9 % Sodium Chloride 250 ML 270 MG IV (13:21)
[2022-01-26 15:44] VITALS: BP 156/70; PULSE 68; RESP 16; TEMP 36.4; O2SAT 99
[2022-01-26 16:12] LABS: Glucose, Whole Blood 169 mg/dL (60-115)
[2022-01-26 20:00] VITALS: BP 142/65; PULSE 64; RESP 17; TEMP 36.4; O2SAT 98
[2022-01-26 20:57] LABS: Glucose, Whole Blood 213 mg/dL (60-115)
[2022-01-26] MEDS: Atorvastatin Calcium 80 MG TABLET PO (22:11)
[2022-01-26] MEDS: amLODIPine Besylate 10 MG TABLET PO (22:11)
[2022-01-26] MEDS: Insulin Glargine,Hum.rec.anlog 100 UNIT/ML 10 ML VIAL 15 UNIT SUBCUT (22:12)
[2022-01-27] VITALS: BP 133/60; PULSE 52; RESP 17; TEMP 36.1; O2SAT 98
[2022-01-27] MEDS: 0.9 % Sodium Chloride Flush 3 ML SYRINGE IVFLUSH ×3 (00:11→16:37)
[2022-01-27 04:00] VITALS: BP 147/66; PULSE 71; RESP 17; TEMP 36.6; O2SAT 98
[2022-01-27] MEDS: Omeprazole 20 MG CAPSULE.DR PO (05:55)
[2022-01-27 06:59] LABS: Creatinine Clr Calc Pharmacy 50.9; Estimated Glomerular Filt Rate > 60
--- NOTE | 2022-01-27 07:18 | HE.PHANOTE ---
Pt cr improved, per insight auc is 389 on current regimen, since increased dose yesterday and trough is tomorrow will cont same for now
[2022-01-27 07:52] LABS: Glucose, Whole Blood 128 mg/dL (60-115)
[2022-01-27 08:00] VITALS: BP 148/65; PULSE 62; RESP 17; TEMP 36; O2SAT 95
[2022-01-27] MEDS: Metoprolol Succinate ER 50 MG TAB.ER.24H PO (10:28)
[2022-01-27] MEDS: Aspirin Enteric Coated 81 MG TABLET.DR PO (10:28)
[2022-01-27] MEDS: hydrALAZINE HCl 50 MG TABLET PO ×2 (10:29→20:09)
[2022-01-27] MEDS: Losartan Potassium 50 MG TABLET PO (10:29)
[2022-01-27] MEDS: Cholecalciferol (Vitamin D3) 25 MCG TABLET PO (10:29)
--- NOTE | 2022-01-27 10:37 | HO.PM.IMPN ---
Subjective Subjective Date of Service: 01/27/22 Interval History: Follow-up for right great toe infection, osteomyelitis of right great toe No new issues, Cr within normal now Review of Systems no fever no pain no itchyness Physical Exam Vital Signs: Vital Signs: Last Vital Signs Temp 96.8 F 01/27/22 08:00 Pulse 62 01/27/22 08:00 Resp 17 01/27/22 08:00 BP 148/65 H 01/27/22 08:00 Pulse Ox 95 01/27/22 08:00 O2 Del Method 01/27/22 08:00 BMI result Body Mass Index 29.3 Const: Other: Patient oriented to self and place, able to give history of General: cooperative and alert Orientation/consciousness: patient oriented x3 Resp: Effort & Inspection: normal respiratory effort and able to speak in complete sentences Auscultation: clear to auscultation bilaterally Cardio: Rate: regular rate Rhythm: regular rhythm Heart sounds: S1 normal heart sound present and S2 normal heart sound present GI: Inspection: No distended Palpation (GI): Soft to palpation and nontender Auscultation: normal bowel sounds Skin: Other: swelling improved. chronic skin changes bilateral lower leg, dry skin. Right foot edema improving General skin exam: no rashes or lesions noted Neuro: General: patient oriented x3 Cognition (Neuro): normal cognition Extrem: Other: Right great toe/foot erythema improving. Objective Data Active Medications Acetaminophen (Acetaminophen 325 Mg Tablet) 650 mg PO Q6H PRN PRN Reason: Pain, Mild (Pain Scale 1-3) Last Admin: 01/26/22 05:12 Dose: 650 mg Documented By: MALVIN Amlodipine Besylate (Amlodipine Besylate 10 Mg Tablet) 10 mg PO BEDTIME [facility]; Protocol Last Admin: 01/26/22 22:11 Dose: 10 mg Documented By: FARHEEN Artificial Tears (Artificial Tears 15 Ml Drops) 1 drop EYE-BOTH Q4H PRN PRN Reason: Itching Aspirin (Aspirin Enteric Coated 81 Mg Tablet.) 81 mg PO DAILY [facility] Last Admin: 01/27/22 10:28 Dose: 81 mg Documented By: EDGAR Atorvastatin Calcium (Atorvastatin Calcium 80 Mg Tablet) 80 mg PO BEDTIME [facility] Last Admin: 01/26/22 22:11 Dose: 80 mg Documented By: FARHEEN Dextrose (Dextrose 50 % 25 Gm/50 Ml Syringe) 25 gm IVPUSH Q15M PRN; Protocol PRN Reason: per Hypoglycemia Standing Ord. Diphenhydramine HCl (Diphenhydramine Hcl 50 Mg/Ml Vial) 12.5 mg IVPUSH Q6H PRN PRN Reason: Itching Last Admin: 01/24/22 12:58 Dose: 12.5 mg Documented By: DABA Docusate Sodium (Docusate Sodium 100 Mg Capsule) 100 mg PO DAILY PRN PRN Reason: Constipation Enoxaparin Sodium (Enoxaparin Sodium 40 Mg/0.4 Ml Syringe) 40 mg SUBCUT Q24H [facility] Last Admin: 01/26/22 22:18 Dose: Not Given Documented By: FARHEEN Non-Admin Reason: Patient Refused Glucose (Glucose Gel 15 Gm Gel..Gram.) 15 gm PO Q15M PRN; Protocol PRN Reason: per Hypoglycemia Standing Ord. Hydralazine HCl (Hydralazine Hcl 50 Mg Tablet) 50 mg PO BID [facility]; Protocol Last Admin: 01/27/22 10:29 Dose: 50 mg Documented By: EDGAR Hydroxyzine HCl (Hydroxyzine Hcl 25 Mg Tablet) 25 mg PO Q8H PRN PRN Reason: itching Last Admin: 01/20/22 09:06 Dose: 25 mg Documented By: COLLEEN Vancomycin HCl 1,000 mg/ (Sodium Chloride) 270 mls @ 270 mls/hr IV Q24H [facility] Last Infusion: 01/26/22 15:16 Dose: 0 mls/hr Documented By: EDGAR Insulin Glargine (Insulin Glargine,Hum.Rec.Anlog 100 Unit/Ml 10 Ml Vial) 15 unit SUBCUT BEDTIME [facility] Last Admin: 01/26/22 22:12 Dose: 15 unit Documented By: FARHEEN Insulin Human Lispro (Insulin Lispro 100 Unit/Ml 3 Ml Vial) 0 unit SUBCUT QIDACHS [facility]; Protocol Last Admin: 01/27/22 07:56 Dose: Not Given Documented By: EDGAR Non-Admin Reason: No Insulin Coverage Losartan Potassium (Losartan Potassium 50 Mg Tablet) 50 mg PO DAILY [facility]; Protocol Last Admin: 01/27/22 10:29 Dose: 50 mg Documented By: HO.MATTHEP Metoprolol Succinate (Metoprolol Succinate Er 50 Mg Tab.Er.24h) 50 mg PO DAILY [facility]; Protocol Last Admin: 01/27/22 10:28 Dose: 50 mg Documented By: EDGAR Omeprazole (Omeprazole 20 Mg Capsule.Dr) 20 mg PO DAILY@0630 [facility] Last Admin: 01/27/22 05:55 Dose: 20 mg Documented By: MADI Ondansetron HCl (Ondansetron Hcl 4 Mg/2 Ml Vial) 4 mg IVPUSH Q8H PRN PRN Reason: Nausea and Vomiting Pharmacy Consult (Consult Rx Perform Med Rec) 1 each MISCELLANE ONCE PRN PRN Reason: Consult order Pharmacy Consult (Consult Rx Vancomycin Dosing) 1 each MISCELLANE DAILY PRN PRN Reason: Consult order Pharmacy Consult (Consult Rx Vancomycin Dosing) 1 each MISCELLANE DAILY PRN PRN Reason: Consult order Pharmacy Consult (Consult Rx Vancomycin Dosing) 1 each MISCELLANE DAILY PRN PRN Reason: Consult order Sodium Chloride (0.9 % Sodium Chloride Flush 3 Ml Syringe) 3 ml IVFLUSH QSHIFT [facility] Last Admin: 01/27/22 10:29 Dose: 3 ml Documented By: EDGAR Vitamin D (Cholecalciferol (Vitamin D3) 25 Mcg Tablet) 25 mcg PO DAILY [facility] Last Admin: 01/27/22 10:29 Dose: 25 mcg Documented By: EDGAR Labs CBC & Chem 7: 01/19/22 05:17 01/27/22 05:55 Labs: Laboratory Results - last 24 hr 01/26/22 01/26/22 01/26/22 10:48 10:54 15:49 Estim Creat Clear Calc Estimated GFR POC Glucose 202 H 169 H Vancomycin Trough 10.7 01/26/22 01/27/22 01/27/22 20:42 05:55 07:29 Estim Creat Clear Calc 50.9 Estimated GFR > 60 POC Glucose 213 H 128 H Vancomycin Trough Assessment and Plan (1) Osteomyelitis: Status: Acute Plan 81-year-old male with past medical history of diabetes presents to the hospital with nonhealing wound of the right foot #Woud associated with diabetes # Osteomyelitis of the tuft of the right great toe -Surgery advises Abx and if fails then amputation -Didn't tolerate Invanz d/t pruritis - PICC inserted on 01/21 -ID advises Vanco for 6 week, started 01/23, D5/42.. last vanco level 10, so adjusting level #Diabetes--Ok control -Continue Lantus -SSI, POCs, ADA diet - Trulicity is non formulary #hypertension--Acceptable control #HLD--continue Lipitor #ELIZABETH--?pre renal, not related to vanco. resolved. DVT prophylaxis -Lovenox dispo - home with [facility] abx - has nurses who come to his house twice daily for medication Need for inpatient: IV antibiotic for osteomyelitis and monitoring Vancomycin level until stable Quality Stroke Does the patient have a stroke diagnosis?: No VTE Prior VTE?: No VTE Risk Level:: Medical - moderate - high VTE Device Contraindication: Treatment Not Indicated VTE Drug Contraindication: N/A - Med Ordered
[2022-01-27 11:16] LABS: Glucose, Whole Blood 223 mg/dL (60-115)
[2022-01-27 11:51] VITALS: BP 160/67; PULSE 79; RESP 17; TEMP 36; O2SAT 99
[2022-01-27] MEDS: Insulin Lispro 100 UNIT/ML 3 ML VIAL SUBCUT ×3 (12:26→20:07)
[2022-01-27] MEDS: vancomycin HCL 1,000 MG in 0.9 % Sodium Chloride 250 ML 270 MG IV (12:27)
[2022-01-27 16:00] VITALS: BP 169/74; PULSE 68; RESP 16; TEMP 36.2; O2SAT 100
[2022-01-27 16:37] LABS: Glucose, Whole Blood 166 mg/dL (60-115)
[2022-01-27 19:34] VITALS: BP 167/74; PULSE 70; RESP 16; TEMP 36.1; O2SAT 98
[2022-01-27 19:52] LABS: Glucose, Whole Blood 222 mg/dL (60-115)
[2022-01-27] MEDS: Atorvastatin Calcium 80 MG TABLET PO (20:06)
[2022-01-27] MEDS: amLODIPine Besylate 10 MG TABLET PO (20:06)
[2022-01-27] MEDS: Insulin Glargine,Hum.rec.anlog 100 UNIT/ML 10 ML VIAL 15 UNIT SUBCUT (20:06)
[2022-01-28] VITALS: BP 148/65; PULSE 78; RESP 17; TEMP 36.4; O2SAT 94
[2022-01-28 04:00] VITALS: BP 157/66; PULSE 52; RESP 17; TEMP 36.3; O2SAT 97
[2022-01-28] MEDS: Omeprazole 20 MG CAPSULE.DR PO (06:08)
[2022-01-28 06:57] VITALS: BP 152/70; PULSE 62; RESP 18; TEMP 36.1; O2SAT 97
--- NOTE | 2022-01-28 07:00 | HE.PHANOTE ---
RE DUC CONTINUE CURRENT DOSE. SCR AND TROUGH DUE @ 1100. WILL ADJUST NEEDED
[2022-01-28 07:07] LABS: Glucose, Whole Blood 108 mg/dL (60-115)
--- NOTE | 2022-01-28 09:19 | HO.PM.IMPN ---
Subjective Subjective Date of Service: 01/28/22 Interval History: Follow-up for right great toe infection, osteomyelitis of right great toe No new issues, Cr within normal now Review of Systems no fever no pain no itchyness Physical Exam Vital Signs: Vital Signs: Last Vital Signs Temp 97 F 01/28/22 06:57 Pulse 62 01/28/22 06:57 Resp 18 01/28/22 06:57 BP 152/70 H 01/28/22 06:57 Pulse Ox 97 01/28/22 06:57 O2 Del Method 01/28/22 06:57 BMI result Body Mass Index 29.3 Const: Other: Patient oriented to self and place, able to give history of General: cooperative and alert Orientation/consciousness: patient oriented x3 Resp: Effort & Inspection: normal respiratory effort and able to speak in complete sentences Auscultation: clear to auscultation bilaterally Cardio: Rate: regular rate Rhythm: regular rhythm Heart sounds: S1 normal heart sound present and S2 normal heart sound present GI: Inspection: No distended Palpation (GI): Soft to palpation and nontender Auscultation: normal bowel sounds Skin: Other: swelling improved. chronic skin changes bilateral lower leg, dry skin. Right foot edema improving General skin exam: no rashes or lesions noted Neuro: General: patient oriented x3 Cognition (Neuro): normal cognition Extrem: Other: Right great toe/foot erythema improving. Objective Data Active Medications Acetaminophen (Acetaminophen 325 Mg Tablet) 650 mg PO Q6H PRN PRN Reason: Pain, Mild (Pain Scale 1-3) Last Admin: 01/26/22 05:12 Dose: 650 mg Documented By: MALVIN Amlodipine Besylate (Amlodipine Besylate 10 Mg Tablet) 10 mg PO BEDTIME [facility]; Protocol Last Admin: 01/27/22 20:06 Dose: 10 mg Documented By: PHILL Artificial Tears (Artificial Tears 15 Ml Drops) 1 drop EYE-BOTH Q4H PRN PRN Reason: Itching Aspirin (Aspirin Enteric Coated 81 Mg Tablet.) 81 mg PO DAILY [facility] Last Admin: 01/27/22 10:28 Dose: 81 mg Documented By: EDGAR Atorvastatin Calcium (Atorvastatin Calcium 80 Mg Tablet) 80 mg PO BEDTIME [facility] Last Admin: 01/27/22 20:06 Dose: 80 mg Documented By: PHILL Dextrose (Dextrose 50 % 25 Gm/50 Ml Syringe) 25 gm IVPUSH Q15M PRN; Protocol PRN Reason: per Hypoglycemia Standing Ord. Diphenhydramine HCl (Diphenhydramine Hcl 50 Mg/Ml Vial) 12.5 mg IVPUSH Q6H PRN PRN Reason: Itching Last Admin: 01/24/22 12:58 Dose: 12.5 mg Documented By: DABBronson Docusate Sodium (Docusate Sodium 100 Mg Capsule) 100 mg PO DAILY PRN PRN Reason: Constipation Enoxaparin Sodium (Enoxaparin Sodium 40 Mg/0.4 Ml Syringe) 40 mg SUBCUT Q24H [facility] Last Admin: 01/27/22 20:08 Dose: Not Given Documented By: PHILL Non-Admin Reason: Patient Refused Glucose (Glucose Gel 15 Gm Gel..Gram.) 15 gm PO Q15M PRN; Protocol PRN Reason: per Hypoglycemia Standing Ord. Hydralazine HCl (Hydralazine Hcl 50 Mg Tablet) 50 mg PO BID [facility]; Protocol Last Admin: 01/27/22 20:09 Dose: 50 mg Documented By: PHILL Hydroxyzine HCl (Hydroxyzine Hcl 25 Mg Tablet) 25 mg PO Q8H PRN PRN Reason: itching Last Admin: 01/20/22 09:06 Dose: 25 mg Documented By: COLLEEN Vancomycin HCl 1,000 mg/ (Sodium Chloride) 270 mls @ 270 mls/hr IV Q24H [facility] Last Infusion: 01/27/22 13:42 Dose: 0 mls/hr Documented By: EDGAR Insulin Glargine (Insulin Glargine,Hum.Rec.Anlog 100 Unit/Ml 10 Ml Vial) 15 unit SUBCUT BEDTIME [facility] Last Admin: 01/27/22 20:06 Dose: 15 unit Documented By: PHILL Insulin Human Lispro (Insulin Lispro 100 Unit/Ml 3 Ml Vial) 0 unit SUBCUT QIDACHS [facility]; Protocol Last Admin: 01/28/22 08:49 Dose: Not Given Documented By: FREDDIE Non-Admin Reason: No Insulin Coverage Losartan Potassium (Losartan Potassium 50 Mg Tablet) 50 mg PO DAILY [facility]; Protocol Last Admin: 01/27/22 10:29 Dose: 50 mg Documented By: EDGAR Metoprolol Succinate (Metoprolol Succinate Er 50 Mg Tab.Er.24h) 50 mg PO DAILY [facility]; Protocol Last Admin: 01/27/22 10:28 Dose: 50 mg Documented By: EDGAR Omeprazole (Omeprazole 20 Mg Capsule.) 20 mg PO DAILY@0630 [facility] Last Admin: 01/28/22 06:08 Dose: 20 mg Documented By: LUCIANA Ondansetron HCl (Ondansetron Hcl 4 Mg/2 Ml Vial) 4 mg IVPUSH Q8H PRN PRN Reason: Nausea and Vomiting Pharmacy Consult (Consult Rx Perform Med Rec) 1 each MISCELLANE ONCE PRN PRN Reason: Consult order Pharmacy Consult (Consult Rx Vancomycin Dosing) 1 each MISCELLANE DAILY PRN PRN Reason: Consult order Sodium Chloride (0.9 % Sodium Chloride Flush 3 Ml Syringe) 3 ml IVFLUSH QSHIFT [facility] Last Admin: 01/28/22 01:07 Dose: Not Given Documented By: LUCIANA Non-Admin Reason: PICC LINE FLUSH ONLY Vitamin D (Cholecalciferol (Vitamin D3) 25 Mcg Tablet) 25 mcg PO DAILY [facility] Last Admin: 01/27/22 10:29 Dose: 25 mcg Documented By: EDGAR Labs CBC & Chem 7: 01/19/22 05:17 01/27/22 05:55 Labs: Laboratory Results - last 24 hr 01/27/22 01/27/22 01/27/22 11:04 16:15 19:38 POC Glucose 223 H 166 H 222 H 01/28/22 06:59 POC Glucose 108 Assessment and Plan (1) Osteomyelitis: Status: Acute Plan 81-year-old male with past medical history of diabetes presents to the hospital with nonhealing wound of the right foot #Woud associated with diabetes # Osteomyelitis of the tuft of the right great toe -Surgery advises Abx and if fails then amputation -Didn't tolerate Invanz d/t pruritis - PICC inserted on 01/21 -ID advises Vanco for 6 week, started 01/23, .. last vanco level 10, vanco level today and possible discharge if good range #Diabetes--Ok control -Continue Lantus -SSI, POCs, ADA diet - Trulicity is non formulary #hypertension--Acceptable control #HLD--continue Lipitor #ELIZABETH--?pre renal, not related to vanco. resolved. DVT prophylaxis -Lovenox dispo - home with intermediate abx - has nurses who come to his house twice daily for medication Need for inpatient: IV antibiotic for osteomyelitis and monitoring Vancomycin level until stable Quality Stroke Does the patient have a stroke diagnosis?: No VTE Prior VTE?: No VTE Risk Level:: Medical - moderate - high VTE Device Contraindication: Treatment Not Indicated VTE Drug Contraindication: N/A - Med Ordered
[2022-01-28] MEDS: Cholecalciferol (Vitamin D3) 25 MCG TABLET PO (10:15)
[2022-01-28] MEDS: Aspirin Enteric Coated 81 MG TABLET.DR PO (10:15)
[2022-01-28] MEDS: Metoprolol Succinate ER 50 MG TAB.ER.24H PO (10:15)
[2022-01-28] MEDS: Losartan Potassium 50 MG TABLET PO (10:15)
[2022-01-28] MEDS: 0.9 % Sodium Chloride Flush 3 ML SYRINGE IVFLUSH ×2 (10:16→17:17)
[2022-01-28] MEDS: hydrALAZINE HCl 50 MG TABLET PO ×2 (10:17→21:05)
[2022-01-28 11:13] LABS: Creatinine Clr Calc Pharmacy 47.4; Estimated Glomerular Filt Rate 60
[2022-01-28 11:30] LABS: Vancomycin Random 12.4 mcg/mL (15-20)
--- NOTE | 2022-01-28 11:32 | MHC.CM.PN ---
PLAN IS FOR DC TOMORROW ON [facility] QD FOR 6 WEEKS [facility] AND [facility] AWARE AND WILL COORDINATE DAUGHTER JOLYNN ([phone]) WANTS PATIENT TO RETURN HOME WITH SERVICES AND NOT DC TO SNF. PATIENT WANTS THE SAME.
[2022-01-28 11:55] LABS: Glucose, Whole Blood 164 mg/dL (60-115)
--- NOTE | 2022-01-28 11:58 | HE.PHANOTE ---
[facility]IER CONTINUE CURRENT DOSE, NEXT TROUGH 01/30/2022 @1100
[2022-01-28 12:00] VITALS: BP 118/67; PULSE 78; RESP 16; TEMP 36; O2SAT 96
[2022-01-28] MEDS: vancomycin HCL 1,000 MG in 0.9 % Sodium Chloride 250 ML 270 MG IV (13:58)
[2022-01-28 14:29] VITALS: BP 139/68; PULSE 71; RESP 18; TEMP 35.8; O2SAT 98
--- NOTE | 2022-01-28 14:39 | MHC.CLN ---
NUTRITION CONSULT FOR SKIN. PATIENT WITH RIGHT GREAT TOE DIABETIC ULCER. DIET=DIABETIC 1800 KCALS. APPEARS TO BE EATING VERY WELL. NO NEW NUTRITION INTERVENTIONS.
[2022-01-28 16:32] LABS: Glucose, Whole Blood 206 mg/dL (60-115)
[2022-01-28] MEDS: Insulin Lispro 100 UNIT/ML 3 ML VIAL SUBCUT ×2 (17:17→21:06)
[2022-01-28 19:41] VITALS: BP 135/57; PULSE 69; RESP 18; TEMP 36.4; O2SAT 100
[2022-01-28 19:58] LABS: Glucose, Whole Blood 259 mg/dL (60-115)
[2022-01-28] MEDS: amLODIPine Besylate 10 MG TABLET PO (21:06)
[2022-01-28] MEDS: Atorvastatin Calcium 80 MG TABLET PO (21:06)
[2022-01-28] MEDS: Insulin Glargine,Hum.rec.anlog 100 UNIT/ML 10 ML VIAL 15 UNIT SUBCUT (21:06)
[2022-01-29] VITALS: BP 128/60; PULSE 73; RESP 17; TEMP 36.5; O2SAT 94
[2022-01-29 04:00] VITALS: BP 142/48; PULSE 75; RESP 17; TEMP 36.3; O2SAT 98
[2022-01-29 07:20] LABS: Glucose, Whole Blood 159 mg/dL (60-115)
[2022-01-29 07:31] VITALS: BP 143/64; PULSE 81; RESP 18; TEMP 36.3; O2SAT 95
[2022-01-29] MEDS: Metoprolol Succinate ER 50 MG TAB.ER.24H PO (08:13)
[2022-01-29] MEDS: Aspirin Enteric Coated 81 MG TABLET.DR PO (08:13)
[2022-01-29] MEDS: Losartan Potassium 50 MG TABLET PO (08:13)
[2022-01-29] MEDS: hydrALAZINE HCl 50 MG TABLET PO (08:13)
[2022-01-29] MEDS: Cholecalciferol (Vitamin D3) 25 MCG TABLET PO (08:13)
[2022-01-29] MEDS: Insulin Lispro 100 UNIT/ML 3 ML VIAL SUBCUT ×2 (08:14→11:51)
[2022-01-29] MEDS: 0.9 % Sodium Chloride Flush 3 ML SYRINGE IVFLUSH (08:14)
[2022-01-29 11:20] LABS: Estimated Glomerular Filt Rate 53
[2022-01-29 11:28] LABS: Glucose, Whole Blood 218 mg/dL (60-115)
[2022-01-29 11:36] VITALS: BP 163/70; PULSE 71; RESP 18; TEMP 36.2; O2SAT 99
--- NOTE | 2022-01-29 11:46 | HE.PHANOTE ---
[VANCO ADDENDUM] Jovany spoke to Dr. Jaun harrington increasing the dose to 1250mg Q24H; she stated that pt will be discontinued later today 01/29/22 so trough was cancelled. Will continue to monitor pending discharge
[2022-01-29] MEDS: vancomycin HCL 1,250 MG in 0.9 % Sodium Chloride 250 ML 270 MG IV (11:51)
--- NOTE | 2022-01-29 12:02 | MHC.CM.PN ---
DC HOME TODAY FOLLOWING [facility] INFUSION. FAMILY TO TRANSPORT. IMM 01/28 IN CHART. [facility] HAS BEEN IN TOUCH WITH JEFFRY (AMELIA) OF [facility] AND IS WORKING WITH AGENCY TO COORDINATE BEST DOSING TIME.
--- NOTE | 2022-01-29 12:13 | P.DS_ITS ---
DS: Providers Provider Date of Service: 01/29/22 Date of admission: 01/17/22 20:57 Primary care physician: Gonzales Ross MD Consults: 01/17/22 20:51 Consult to Infectious Diseases Routine Consulting Provider: Thuy Gale Reason for consultation: Non-healing wound Has provider been notified: No 01/17/22 21:01 Consult to General Surgery Routine Consulting Provider: Hu Eaton Reason for consultation: diabetic foot wound Has provider been notified: No DS: Diagnosis Discharge Diagnosis (1) Osteomyelitis: Status: Acute DS: Summary Hospital Course Hospital Course: Admission HPI Chief Complaint: foot wound Citizen Of [place]-speaking male, history is obtained with the help of an composite mechanic ?This is an 81-year-old male with past medical history of COPD, dementia, diabe mary, history of CVA, HTN, HLD, presents the hospital with right toe nonhealing infection.? Patient was seen in the hospital on FridayJanuary 14 and was sent home on Keflex and doxycycline, returns now stating that the wound has not healed and it appears to be more painful. Patient denies any chest pain, no abdominal pain nausea or vomiting, no diarrhea constipation, no urinary symptoms and no lower extremity edema. On arrival to the ED patient hemodynamically stable with no significant abnormal vitals Labs are significant for WBC count 9.7, ESR of 67, CRP of 0.5 Hospital course: He presentd with Diabetic wound of right great toe/ acute? osteomyelitis as evident on CT of right foot showing osteomyelitis of the tuft of the right great toe with elevated ESR of 67 ID recommend meropenem and was supposed to be discharged on ertapenem but however he developed pruritus, therefore antibiotic switched to vancomycin, he need total 42 days treatment end date is March 06 PICC line is done for this. - blood cultures negative to date. Recommend Q weekly BMP and Vanco trough, Seen by General surgery, no need for surgical intervention at this time Peripheral artery disease right lower extremity ultrasound showing moderate to severe right SFA and posterior tibial - with likely benefit from outpatient vascular surgery evaluation To continue usual meds for diabetes, HTN, HLD Time Spent with Patient Time attestation: Total time spent providing and/or coordinating discharge services: Discharge coordination time: Greater than 30 minutes Quality: Safe Use of Opioids Does Pt have an Active Cancer Diagnosis on the Problem List?: No Quality: Stroke Does the patient have a stroke diagnosis?: No Physical Exam 2 Vital Signs: Vital Signs: Last Vital Signs Temp 97.2 F 01/29/22 11:36 Pulse 71 01/29/22 11:36 Resp 18 01/29/22 11:36 BP 163/70 H 01/29/22 11:36 Pulse Ox 99 01/29/22 11:36 O2 Del Method 01/29/22 11:36 BMI result Body Mass Index 29.3 Const: Other: General awake alert x3, in no acute distress. Neck supple no JVD. CVS regular rate rhythm, Respiratory lungs clear to auscultation, no respiratory distress, no wheeze, no rhonchi. Gastrointestinal abdomen soft, nontender, bowel sounds audible Extremities bilateral chronic skin changes lower extremity, right foot edema improved no rashes or lesions noted, right great toe/foot erythema improved, no skin necrosis is identified, no fluctuation noted. Neuro nonfocal DS: Data Data Completed and Pending Labs on day of discharge: Laboratory Results - last 24 hr 01/28/22 01/28/22 01/29/22 16:22 19:54 07:09 Creatinine Estim Creat Clear Calc Estimated GFR POC Glucose 206 H 259 H 159 H 01/29/22 01/29/22 10:53 11:18 Creatinine 1.29 Estim Creat Clear Calc 43.0 Estimated GFR 53 POC Glucose 218 H Discharge Plan Discharge Anticipated Discharge Date/Time: 01/22/22 09:33 Patient Disposition: Home Health Service Discharge Diagnosis: Acute osteomylitis Referrals: [facility] [Other] - 1 Day ([facility] WILL BE SEEING PT TOMORROW FOR ADMINISTRATION OF FIRST DOSE OF IV ANTIBIOTICS. ) [facility] [Other] - 1 Day ([facility] WILL DELIVER IV ERTAPENEM.) Gonzales Ross MD [Primary Care Provider] - 1 Week Discharge Medications: Continued insulin glargine [Lantus U-100 Insulin] 100 unit/mL solution 15 unit subcut BEDTIME atorvastatin 80 mg tablet 80 mg PO BEDTIME aspirin 81 mg tablet,delayed release (DR/EC) 81 mg PO QAM amlodipine 10 mg tablet 10 mg PO BEDTIME omeprazole 20 mg capsule,delayed release(DR/EC) 20 mg PO QAM hydralazine 50 mg Tablet 50 mg PO BID metoprolol succinate 50 mg Tablet Extended Release 24 Hr 50 mg PO DAILY hydroxyzine HCl 25 mg tablet 25 mg PO Q8H PRN (Reason: itching) Qty: 14 0RF cholecalciferol (vitamin D3) 25 mcg (1,000 unit) tablet 1 tab PO DAILY Trulicity 1.5 mg/0.5 mL pen injector 1.5 mg subcut QWEEK losartan 50 mg Tablet 50 mg PO DAILY Qty: 0 0RF Rx Instructions: THIS WAS JUST RECENTLY INCREASED TO 100 MG (DME) compr.stocking,knee,long,large Misc See Rx Instructions .Route Qty: 12 0RF Rx Instructions: As directed (DME) compress.stocking,knee,reg,lrg Misc See Rx Instructions .Route Qty: 2 0RF Rx Instructions: As directed Discontinued cephalexin 500 mg capsule 500 mg PO QID 10 Days Qty: 40 0RF doxycycline hyclate 100 mg tablet 100 mg PO BID Qty: 20 0RF Discharge Orders: Discharge Order (Routine); Ordered 01/29/22 Ordered By: Francoise Zamorano Diet: Diabetic diet Activity on Discharge: As tolerated Stand Alone Forms: Patient Portal Discharge page Care Plan Goals: Resolution of osteomylitis Health Concerns: Osteomylitis of the foot Plan of Treatment: Take IV vancomycin check BMP, Vanco trough q.weekly end date for vancomycin, March 06. Assessment: as above
--- NOTE | 2022-01-29 15:41 | MHC.CM.PN ---
DAUGHTER JOLYNN IS CONTACTING PATIENT'S SON TO PROVIDE TRANSPORT. IF SON IS UNAVAILABLE, JOLYNN WILL BE HERE AROUND 7 PM. JOLYNN ASKED YOU CAN'T GET HIM A RIDE T/W REMINDED JOLYNN THAT SHE TOLD T/W THAT FAMILY WOULD TRANSPORT AND NO TRANSPORTATION NEEDED TO BE ARRANGED ON THE PART OF [facility] [place], [place]. RN AND UNIT MADE AWARE.
--- NOTE | 2022-01-29 16:56 | P.F2F_ITS ---
Service Date Service Date: 01/29/22 Encounter Date of encounter: 01/29/22 Reasons for Services Signs and symptoms assessed: Diabetic foot ulcer, osteomyelitis of right big toe Reason for care home: medication management Homebound: Leaving the home is medically contraindicated at this time without the asist of a device and/or another person due th the listed conditions above and below. Reason homebound: pain with ambulation and weakness related to hospital stay Certification: Based on the above findings, I certify that this patient is confined to the home and needs intermittent care home care, physical therapy and/or speech therapy, or continues to need occupational therapy. The patient is under my care, and I have initiated the establishment of the plan of care. The patient will be followed by a physician who will periodically review the plan of care.
== END 2022-01-29 17:59 | disposition home health service (06) | DRG 638 ==
LOC: HO.ED 21:01 → HO.EDOVER 21:06 → HO.S3 01-18 20:45
PROVIDERS: Internal Medicine; Nurse Practitioner Family; Physician Assistant Medical; Admitting Provider Internal Medicine; Emergency Provider Internal Medicine; PCP Internal Medicine; Visit Provider Hospitalist
DX: E11.69 Type 2 diabetes mellitus with other specified complication (principal); M86.171 Other acute osteomyelitis, right ankle and foot; E11.621 Type 2 diabetes mellitus with foot ulcer; F03.90 Unspecified dementia, unspecified severity, without behavioral disturbance, psychotic disturbance, mood disturbance, and anxiety; E78.5 Hyperlipidemia, unspecified; I10 Essential (primary) hypertension; N17.9 Acute kidney failure, unspecified; E11.51 Type 2 diabetes mellitus with diabetic peripheral angiopathy without gangrene; J44.9 Chronic obstructive pulmonary disease, unspecified; L97.519 Non-pressure chronic ulcer of other part of right foot with unspecified severity; Z20.822 Contact with and (suspected) exposure to COVID-19; Z86.73 Personal history of transient ischemic attack (TIA), and cerebral infarction without residual deficits; Z87.891 Personal history of nicotine dependence; Z79.4 Long term (current) use of insulin; Z79.82 Long term (current) use of aspirin; Z79.899 Other long term (current) drug therapy
CPT/HCPCS: 36415; 36573; 73620; 73701; 80048; 80076; 80202; 82565; 82947; 83605; 85025; 85027; 85652; 86140; 87040; 87635; 93926; 96365; 96375; 97162; 99285; C1751; J0692; J0696; J1200; J1335; J1650; J2185; J3370; Q9967

== ENCOUNTER 2022-01-30 19:36 | Emergency (ER) | payer OTHER, SELFPAY ==
[2022-01-30 19:45] VITALS: BP 129/60; BP 134/60; PULSE 73; PULSE 79; RESP 20; TEMP 36.1; O2SAT 96; O2SAT 97; BMI 27.4
[2022-01-30] MEDS: Acetaminophen 325 MG TABLET 650 MG PO (20:41)
--- NOTE | 2022-01-30 20:55 | ED.GENADULT ---
HPI - General Adult General Chief complaint: General Medical Stated complaint: FOOT PAIN Time Seen by Provider: 01/30/22 20:55 Source: patient Mode of arrival: EMS Limitations: no limitations History of Present Illness HPI narrative: Patient 81 years old with history of COPD, dementia, DM diabetes, CVA, hypertension, hyperlipidemia just discharged yesterday admitted for right greater toe osteomyelitis discharge home on IV vancomycin comes back as family unable take care of him requesting placement patient denying any complaints as such other than pain in the right great toe patient has a PICC line in right arm from where he is getting IV antibiotics Related Data Home Medications Medication Instructions Recorded Confirmed amlodipine 10 mg tablet 10 mg PO BEDTIME 03/07/21 01/17/22 aspirin 81 mg tablet,delayed 81 mg PO QAM 03/07/21 01/17/22 release atorvastatin 80 mg tablet 80 mg PO BEDTIME 03/07/21 01/17/22 omeprazole 20 mg capsule,delayed 20 mg PO QAM 03/07/21 01/17/22 release hydralazine 50 mg tablet 50 mg PO BID 07/07/21 01/17/22 metoprolol succinate 50 mg 50 mg PO DAILY 07/07/21 01/17/22 tablet,extended release 24 hr cholecalciferol (vitamin D3) 25 1 tab PO DAILY 01/17/22 01/17/22 mcg (1,000 unit) tablet dulaglutide 1.5 mg/0.5 mL 1.5 mg subcut QWEEK 01/17/22 01/17/22 subcutaneous pen injector (Trulicity) insulin glargine 100 unit/mL 15 unit subcut BEDTIME 01/17/22 01/17/22 subcutaneous solution (Lantus U-100 Insulin) Previous Rx's Medication Instructions Recorded losartan 50 mg tablet 50 mg PO DAILY #0 tabs 08/21/21 compr.stocking,knee,long,large #12 ea 08/31/21 compress.stocking,knee,reg,lrg #2 ea 09/23/21 hydroxyzine HCl 25 mg tablet 25 mg PO Q8H PRN itching #14 tabs 12/13/21 Allergies Allergy/AdvReac Type Severity Reaction Status Date / Time Penicillins [PENICILLINS] Allergy Intermediate RASH Verified 01/14/22 16:39 Review of Systems Review of Systems: Yes all other systems are reviewed and are negative PMFSH Past Medical History Medical History Adenocarcinoma of right lung (~2020) COPD (chronic obstructive pulmonary disease) Dementia Diabetes Former smoker, stopped smoking in distant past History of CVA (cerebrovascular accident) (~07/2020) HTN (hypertension) Hyperlipidemia Pneumonia Surgical History History of lung biopsy (~10/2020) Social History Social History Household Members: Spouse and Family Household Members Other:: step-son spends the night frequently Housing: Apartment Do you presently have visiting nurse or other home services: No Alcohol intake: never Patient Tobacco Use Status: Former Tobacco user Advance Directives: Yes Advance Directives on File: Yes Advance Directives Date on File: 05/24/21 service: No Current occupational status: retired Physical Exam ED Vital Signs: Vital Signs - 24 hr 01/30/22 19:45 01/30/22 22:58 Temperature 96.9 F 97.0 F Pulse Rate 73 64 Respiratory Rate 20 16 Blood Pressure 129/60 130/84 Pulse Oximetry 96 98 Oxygen Delivery Method Room Air Room Air BMI result Body Mass Index 27.4 Appearance: Alert. Oriented X3. No acute distress. Eyes: PERRLA, No Nystagmus ENT: Pharynx normal. Oral Mucosa moist Neck: Normal inspection. Neck supple. CVS: Normal heart rate and rhythm. Pulses normal. Respiratory: No respiratory distress. Equal air entry bilateral, no wheezing/rales/rhonchi Abdomen: Soft and nontender. Bowel sounds are present, no mass palpable, no CVA tenderness Skin: Skin warm and dry. Normal skin color. Normal skin turgor. Extremities: No lower extremity edema. No calf tenderness right foot greater toe slight erythema and tenderness Neuro: Oriented X 3. No motor deficit. No sensory deficit.No cerebellar signs , cranial nerves II-XII intact Medical Decision Making MDM Narrative Medical decision making narrative: Patient with right greater toe osteomyelitis unable to manage at home will get PT OT consult plan for rehab placement Lab Data Lab results reviewed: Yes I reviewed the patient's lab results. Result diagrams: 01/30/22 22:08 01/30/22 22:08 Labs: Lab Results 01/30/22 01/30/22 01/30/22 Range/Units 22:08 22:08 22:08 WBC 10.2 (4.8-10.8) X10*3/uL RBC 3.58 L (4.60-5.80) X10*6/uL Hgb 8.8 L (14.0-18.0) g/dl Hct 29.0 L (42.0-52.0) % MCV 81.0 (80.0-98.0) fL MCH 24.6 L (27.0-33.0) pg MCHC 30.3 L (31.0-36.0) g/dl RDW 16.8 H (11.0-16.0) % Plt Count 320 (160-400) X10*3/uL MPV 10.5 (9.4-12.4) fL Immature Gran % (Auto) 0.2 (0.0-0.4) % Neut % (Auto) 58.5 (45-73) % Lymph % (Auto) 29.3 (20-40) % [place] % (Auto) 7.3 (2-11) % Eos % (Auto) 4.0 (0-4) % Baso % (Auto) 0.7 (0-2) % Lymph # (Auto) 3.0 (1.2-4.9) X10*3/uL [place] # (Auto) 0.8 (0.1-1.2) X10*3/uL Eos # (Auto) 0.4 (0.0-0.4) X10*3/uL Baso # (Auto) 0.1 (0.0-0.2) X10*3/uL Abs Immat Gran (auto) 0.02 (0.00-0.03) X10*3/uL Absolute Neuts (auto) 6.0 (2.0-8.3) x10*3/uL Absolute Nucleated RBC 0.000 (0.0-0.012) X10*3/uL Nucleated RBC % (auto) 0.0 (0.0-0.2) /100WBC Sodium 142 (135-145) mmol/L Potassium 4.6 D (3.3-5.1) mmol/L Chloride 107 (96-108) mmol/L Carbon Dioxide 24 (22-29) mmol/L Anion Gap 16 (12-20) BUN 36 H D (9-16) mg/dL Creatinine 1.36 (0.5-1.4) mg/dL Estim Creat Clear Calc 40.5 Estimated GFR 50 Random Glucose 177 H D (60-115) mg/dL Calcium 8.9 (8.4-10.2) mg/dL Total Bilirubin 0.3 (0.0-1.0) mg/dL AST 22 D (5-37) U/L ALT 21 (0-40) U/L Alkaline Phosphatase 111 (39-117) U/L Total Protein 6.8 (6.5-8.0) g/dL Albumin 3.5 (3.5-5.0) g/dL COVID-19 (SHANA) Negative (Negative) COVID-19 Clin Com See Note Discharge Plan Discharge Clinical Impression: Diabetic ulcer of right great toe, Osteomyelitis Patient Disposition: Still a Patient Prescriptions: No Action insulin glargine [Lantus U-100 Insulin] 100 unit/mL solution 15 unit subcut BEDTIME atorvastatin 80 mg tablet 80 mg PO BEDTIME aspirin 81 mg tablet,delayed release (DR/EC) 81 mg PO QAM amlodipine 10 mg tablet 10 mg PO BEDTIME omeprazole 20 mg capsule,delayed release(DR/EC) 20 mg PO QAM hydralazine 50 mg Tablet 50 mg PO BID metoprolol succinate 50 mg Tablet Extended Release 24 Hr 50 mg PO DAILY hydroxyzine HCl 25 mg tablet 25 mg PO Q8H PRN (Reason: itching) Qty: 14 0RF cholecalciferol (vitamin D3) 25 mcg (1,000 unit) tablet 1 tab PO DAILY Trulicity 1.5 mg/0.5 mL pen injector 1.5 mg subcut QWEEK losartan 50 mg Tablet 50 mg PO DAILY Qty: 0 0RF Rx Instructions: THIS WAS JUST RECENTLY INCREASED TO 100 MG (DME) compr.stocking,knee,long,large Misc See Rx Instructions .Route Qty: 12 0RF Rx Instructions: As directed (DME) compress.stocking,knee,reg,lrg Misc See Rx Instructions .Route Qty: 2 0RF Rx Instructions: As directed
[2022-01-30] MEDS: oxyCODONE HCl Immed Release 5 MG TABLET 10 MG PO (21:53)
[2022-01-30 22:13] LABS: MANUAL DIFF FLAG NO
[2022-01-30 22:18] LABS: Basophils Absolute Auto 0.1 X10*3/uL (0.0-0.2); Basophils Percent Auto 0.7 % (0-2); Eosinophils Absolute Auto 0.4 X10*3/uL (0.0-0.4); Hemoglobin 8.8 g/dl (14.0-18.0); Imm Gran Abs Auto 0.02 X10*3/uL (0.00-0.03); Imm Gran Pct Auto 0.2 % (0.0-0.4); Lymphocytes Percent Auto 29.3 % (20-40); Mean Corpuscular HGB Conc 30.3 g/dl (31.0-36.0); Mean Corpuscular Hemoglobin 24.6 pg (27.0-33.0); Mean Platelet Volume 10.5 fL (9.4-12.4); Monocytes Absolute Auto 0.8 X10*3/uL (0.1-1.2); Monocytes Percent Auto 7.3 % (2-11); Neutrophils Percent Auto 58.5 % (45-73); Platelet Count 320 X10*3/uL (160-400); Red Blood Count 3.58 X10*6/uL (4.60-5.80); Red Cell Distribution Width 16.8 % (11.0-16.0); White Blood Count 10.2 X10*3/uL (4.8-10.8)
--- NOTE | 2022-01-30 22:23 | MHC.CM.ED ---
Addendum entered by Vonnie Harman 01/30/22 23:18: 23 referrals broadcast, with [facility] first choice. [facility] notified of pt arrival in ED and family request for STR via [facility]. CM to follow for d/c needs. Original Note: Pt was inpatient at [facility] [place]01/29. D/C with osteomyelitis and Home IV therapy. According to medical record, pt was initially going to be D/C to SNF for IV antibiotics, but family and patient changed their mind and wanted home therapy. Pt was d/c with PICC line and [facility]. [facility] ([phone]). [facility] [place] is delivering the home antibiotics. Pt had first dose of Home IV therapy today 01/30. Pt to have vancomycin 750 mg daily for 42 days, with an end date of March 06. CM called step daughter/HCP Ashely Gonzalezenez at request of Dr Jaylen Guevara. Ashely tells CM that she does not live with this patient and her mother cannot care for him. States even though the visiting nurse gave him his antibiotic, it was too much for her mother and they cannot do this for another 41 days. Ashely tells CM that the nurse from the home care told her that her step father was not safe at home and should return to the ED. CM asked how he was unsafe. Ashely states that he was scratching his leg and has dementia. Ashely tells CM that she wants him to go to STR now. Pt is armenian speaking. Will interview pt when combining machine operator is available. PCP is Dr. Ross. Pt lives with . Step daughter helps in afternoon and brother stays overnight. They have a camera set up to monitor the patient. Pt uses a walker, but his balance is poor due to toe pain. [facility] feels he is a fall risk. Per medical record, pt has osteomyelitis and will need antibiotic therapy. If antibiotic therapy is unsuccessful, pt will need toe amputated. HCP on file. HCP/step-daughter Ashely Bass ([phone]). Ashely aware that patient will remain in the ED and is not admitted. Ashely requests [facility] as first choice, or any [facility] facility. Does not want [facility]. Referrals will be broadcast to facilities that accept [employer] insurance. Vax x2 [employer]. Dr. Jaylen Oh aware of above conversation. Will order PT evaluation. CM to follow for d/c needs.
[2022-01-30 22:40] LABS: Alanine Aminotransferase 21 U/L (0-40); Albumin Level 3.5 g/dL (3.5-5.0); Alkaline Phosphatase 111 U/L (39-117); Anion Gap 16 (12-20); Aspartate Amino Transferase 22 U/L (5-37); Bilirubin Total 0.3 mg/dL (0.0-1.0); Blood Urea Nitrogen 36 mg/dL (9-16); Calcium 8.9 mg/dL (8.4-10.2); Carbon Dioxide 24 mmol/L (22-29); Chloride 107 mmol/L (96-108); Creatinine Clr Calc Pharmacy 40.5; Estimated Glomerular Filt Rate 50; Glucose Random 177 mg/dL (60-115); Potassium 4.6 mmol/L (3.3-5.1); Sodium 142 mmol/L (135-145); Total Protein 6.8 g/dL (6.5-8.0)
[2022-01-30 22:43] LABS: COVID-19 Test Negative (Negative)
[2022-01-30 22:58] VITALS: BP 130/84; PULSE 64; RESP 16; TEMP 36.1; O2SAT 98
[2022-01-31] VITALS (7 sets, daily range): BP systolic 137–164; BP diastolic 51–72; PULSE 64–86; RESP 14–16; TEMP 36.1–36.9; O2SAT 94–98
--- NOTE | 2022-01-31 04:53 | PC.NURSE ---
Assumed care of pt. at 1900. Pt. was in the [facility]. Pt. complained of severe pain in the toe. Medicated with oxy per the AUG. Pain relief noted as pt. was able to sleep. Also re-bandaged the toe at pt. request and positioned on a pillow for comfort. Pt. eventually moved from the [facility]son into bed 19, where he was able to sleep for most of the night.
--- NOTE | 2022-01-31 04:57 | PC.NURSE ---
PATIENT REFUSED TO CHANGE INTO HOSPITAL ATTIRE ,RN AWARE .
--- NOTE | 2022-01-31 09:36 | MHC.CM.ED ---
Patient remains in ER. [facility] is not able to offer a bed. At this time, [facility] is only facility able to offer a bed. Spoke with Ashely via telephone at [phone]. Ashely accepts bed at [facility]. [facility] is in the process of obtaining insurance auth. Continue to monitor for d/c needs.
--- NOTE | 2022-01-31 10:18 | PC.NURSE ---
This nurse changed dressing on pts right toe, dressing is dry and intact, wound not draining. Pt states 2/10 pain when touching and moving foot.
--- NOTE | 2022-01-31 11:21 | PHA.MEDREC ---
Pharmacy Consult ? Medication Reconciliation Pharmacy has completed the medication reconciliation. Used dietetic assistant services. Patient was a poor historian of medications. Does not know when the last time they took their medications, report having brain fog . Patient was able to verify trulicity and lantus, however could not say when they last took it. All other meds were confirmed by [facility] to be current. Cross-referenced with claim history to verify as well.
--- NOTE | 2022-01-31 12:42 | MHC.CM.ED ---
[facility] has obtained insurance auth. Patient, Frdei Lund RN and Darlene WHARTON aware. [facility] booked for 3pm. Med nec with chart. Continue to monitor for d/c needs.
[2022-01-31] MEDS: Aspirin Enteric Coated 81 MG TABLET.DR PO (13:47)
[2022-01-31] MEDS: Cholecalciferol (Vitamin D3) 25 MCG TABLET PO (13:47)
[2022-01-31] MEDS: hydrALAZINE HCl 50 MG TABLET PO (13:48)
[2022-01-31] MEDS: Omeprazole 20 MG CAPSULE.DR PO (13:48)
[2022-01-31] MEDS: Metoprolol Succinate ER 50 MG TAB.ER.24H PO (13:48)
[2022-01-31] MEDS: Losartan Potassium 50 MG TABLET 100 MG PO (13:48)
[2022-01-31] MEDS: Empagliflozin 10 MG TABLET PO (14:02)
== END 2022-01-31 15:17 | disposition home or self-care (01) ==
PROVIDERS: Emergency Provider Internal Medicine
DX: E11.621 Type 2 diabetes mellitus with foot ulcer (principal); R26.2 Difficulty in walking, not elsewhere classified; Z20.822 Contact with and (suspected) exposure to COVID-19; Z79.899 Other long term (current) drug therapy
CPT/HCPCS: 80053; 85025; 87635; 97161; 99284; 99285

== ENCOUNTER → 2022-02-25 14:41 | Outpatient (BNVA) | payer OTHER, SELFPAY | PROVIDERS: Visit Provider Internal Medicine | DX: E11.621 Type 2 diabetes mellitus with foot ulcer (principal); L97.519 Non-pressure chronic ulcer of other part of right foot with unspecified severity | CPT/HCPCS: 99212 ==

== ENCOUNTER 2022-04-10 20:17 | Emergency (ER) | payer OTHER, SELFPAY ==
[2022-04-10 20:23] VITALS: BP 140/70; PULSE 87; O2SAT 96
[2022-04-10 22:46] VITALS: BP 125/82; PULSE 82; RESP 18; TEMP 36.6; O2SAT 97; BMI 33.4
[2022-04-10 23:07] LABS: MANUAL DIFF FLAG NO
[2022-04-10 23:08] LABS: Basophils Absolute Auto 0.1 X10*3/uL (0.0-0.2); Basophils Percent Auto 0.6 % (0-2); Eosinophils Absolute Auto 0.4 X10*3/uL (0.0-0.4); Eosinophils Percent Auto 3.9 % (0-4); Hematocrit 30.3 % (42.0-52.0); Hemoglobin 9.3 g/dl (14.0-18.0); Imm Gran Abs Auto 0.02 X10*3/uL (0.00-0.03); Imm Gran Pct Auto 0.2 % (0.0-0.4); Lymphocytes Absolute Auto 3.8 X10*3/uL (1.2-4.9); Lymphocytes Percent Auto 36.9 % (20-40); Mean Corpuscular HGB Conc 30.7 g/dl (31.0-36.0); Mean Corpuscular Hemoglobin 25.8 pg (27.0-33.0); Mean Corpuscular Volume 83.9 fL (80.0-98.0); Mean Platelet Volume 9.9 fL (9.4-12.4); Monocytes Absolute Auto 0.8 X10*3/uL (0.1-1.2); Neutrophils Absolute Auto 5.2 x10*3/uL (2.0-8.3); Neutrophils Percent Auto 50.4 % (45-73); Platelet Count 332 X10*3/uL (160-400); Red Blood Count 3.61 X10*6/uL (4.60-5.80); Red Cell Distribution Width 17.6 % (11.0-16.0); White Blood Count 10.3 X10*3/uL (4.8-10.8)
[2022-04-10 23:18] LABS: Lactic Acid 1.3 mmol/L (0.5-2.0)
[2022-04-10 23:28] LABS: Alanine Aminotransferase 12 U/L (0-40); Albumin Level 3.9 g/dL (3.5-5.0); Alkaline Phosphatase 111 U/L (39-117); Anion Gap 16 (12-20); Aspartate Amino Transferase 14 U/L (5-37); Bilirubin Total 0.3 mg/dL (0.0-1.0); Blood Urea Nitrogen 25 mg/dL (9-16); Calcium 9.5 mg/dL (8.4-10.2); Carbon Dioxide 30 mmol/L (22-29); Chloride 103 mmol/L (96-108); Creatinine Clr Calc Pharmacy 41.8; Estimated Glomerular Filt Rate 43; Glucose Random 182 mg/dL (60-115); Potassium 4.2 mmol/L (3.3-5.1); Sodium 145 mmol/L (135-145); Total Protein 7.3 g/dL (6.5-8.0)
[2022-04-11 01:51] VITALS: BP 128/74; PULSE 70; RESP 18; TEMP 36.9; O2SAT 98
--- NOTE | 2022-04-11 03:12 | ED.GENADULT ---
HPI - General Adult General Chief complaint: General Medical Stated complaint: RASH ALL OVER BODY PER EMS Time Seen by Provider: 04/11/22 03:07 History of Present Illness HPI narrative: This is an 81-year-old male complains of itching on his trunk and upper legs for a few days. The patient cannot think of any new exposures. He denies any new medications. He denies any shortness of breath, throat tightness. Related Data Home Medications Medication Instructions Recorded Confirmed amlodipine 10 mg tablet 10 mg PO BEDTIME 03/07/21 01/31/22 aspirin 81 mg tablet,delayed 81 mg PO DAILY 03/07/21 01/31/22 release atorvastatin 80 mg tablet 80 mg PO BEDTIME 03/07/21 01/31/22 omeprazole 20 mg capsule,delayed 20 mg PO DAILY@0630 03/07/21 01/31/22 release hydralazine 50 mg tablet 50 mg PO BID 07/07/21 01/31/22 metoprolol succinate 50 mg 50 mg PO DAILY 07/07/21 01/31/22 tablet,extended release 24 hr cholecalciferol (vitamin D3) 25 1 tab PO DAILY 01/17/22 01/31/22 mcg (1,000 unit) tablet dulaglutide 1.5 mg/0.5 mL 1.5 mg subcut QWEEK 01/17/22 01/31/22 subcutaneous pen injector (Trulicity) insulin glargine 100 unit/mL 15 unit subcut BEDTIME 01/17/22 01/31/22 subcutaneous solution (Lantus U-100 Insulin) empagliflozin 10 mg tablet 1 tab PO DAILY 01/31/22 01/31/22 (Jardiance) losartan 50 mg tablet 100 mg PO DAILY 01/31/22 01/31/22 Previous Rx's Medication Instructions Recorded compr.stocking,knee,long,large #12 ea 08/31/21 compress.stocking,knee,reg,lrg #2 ea 09/23/21 doxycycline hyclate 100 mg tablet 100 mg PO BID 30 days #60 tabs 02/25/22 hydroxyzine HCl 25 mg tablet 25 mg PO TID PRN itching #20 tabs 04/11/22 Allergies Allergy/AdvReac Type Severity Reaction Status Date / Time Penicillins [PENICILLINS] Allergy Intermediate RASH Verified 02/25/22 15:00 Review of Systems Review of Systems: As per HPI [facility] Past Medical History Medical History Adenocarcinoma of right lung (~2020) COPD (chronic obstructive pulmonary disease) Dementia Diabetes Former smoker, stopped smoking in distant past History of CVA (cerebrovascular accident) (~07/2020) HTN (hypertension) Hyperlipidemia Pneumonia Surgical History History of lung biopsy (~10/2020) Social History Social History Household Members: Spouse and Family Household Members Other:: step-son spends the night frequently Housing: Apartment Do you presently have visiting nurse or other home services: No Alcohol intake: never Patient Tobacco Use Status: Former Tobacco user Advance Directives: Yes Advance Directives on File: Yes Advance Directives Date on File: 05/24/21 service: No Current occupational status: retired Physical Exam ED Vital Signs: Vital Signs - 24 hr 04/10/22 22:46 04/11/22 01:51 Temperature 97.9 F 98.4 F Pulse Rate 82 70 Respiratory Rate 18 18 Blood Pressure 125/82 128/74 Pulse Oximetry 97 98 Oxygen Delivery Method Room Air Room Air BMI result Body Mass Index 33.4 Const General: no acute distress Orientation/consciousness: patient oriented x3 HENMT Head: Yes normal to inspection General nose exam: Normal external nose present Mouth: moist mucous membranes Throat: Yes posterior oropharynx normal, Yes tonsils normal and Yes uvula midline Eyes Eyelids: Yes eyelids normal Conjunctivae: conjunctivae normal Pupils: Equal, round and reactive pupils present Neck Neck: Yes supple Resp Effort & Inspection: normal respiratory effort Auscultation: clear to auscultation bilaterally Cardio Rate: regular rate Rhythm: regular rhythm Heart sounds: S1 normal heart sound present, S2 normal heart sound present, no gallops, no murmurs and no rubs GI Inspection: No distended Palpation (GI): Soft to palpation and nontender Auscultation: normal bowel sounds Skin Other: No diffuse acute appearing rash General skin exam: other (Warm and dry) Neuro General: patient oriented x3 and CN's II-XI intact bilaterally Cranial nerves: Yes Equal, round and reactive pupils present Extrem Other: Chronic pedal and ankle edema with venous stasis dermatitis bilaterally. No cellulitis. General: Yes no pedal edema Psych Affect: normal affect Attitude: cooperative Medical Decision Making [facility] Narrative Medical decision making narrative: Patient with a complaint of pruritus on his trunk and thighs. No evident rash. Patient unable to think of any new exposure, is not on any new medication. Will treat patient with hydroxyzine. Renal function stable, LFTs unremarkable Lab Data Result diagrams: 04/10/22 23:02 04/10/22 23:02 Labs: Lab Results 04/10/22 04/10/22 04/10/22 Range/Units 23:02 23: 23: WBC 10.3 (4.8-10.8) X10*3/uL RBC 3.61 L (4.60-5.80) X10*6/uL Hgb 9.3 L (14.0-18.0) g/dl Hct 30.3 L (42.0-52.0) % MCV 83.9 (80.0-98.0) fL MCH 25.8 L (27.0-33.0) pg MCHC 30.7 L (31.0-36.0) g/dl RDW 17.6 H (11.0-16.0) % Plt Count 332 (160-400) X10*3/uL MPV 9.9 (9.4-12.4) fL Immature Gran % (Auto) 0.2 (0.0-0.4) % Neut % (Auto) 50.4 (45-73) % Lymph % (Auto) 36.9 (20-40) % [place] % (Auto) 8.0 (2-11) % Eos % (Auto) 3.9 (0-4) % Baso % (Auto) 0.6 (0-2) % Lymph # (Auto) 3.8 (1.2-4.9) X10*3/uL [place] # (Auto) 0.8 (0.1-1.2) X10*3/uL Eos # (Auto) 0.4 (0.0-0.4) X10*3/uL Baso # (Auto) 0.1 (0.0-0.2) X10*3/uL Abs Immat Gran (auto) 0.02 (0.00-0.03) X10*3/uL Absolute Neuts (auto) 5.2 (2.0-8.3) x10*3/uL Absolute Nucleated RBC 0.000 (0.0-0.012) X10*3/uL Nucleated RBC % (auto) 0.0 (0.0-0.2) /100WBC Sodium 145 (135-145) mmol/L Potassium 4.2 (3.3-5.1) mmol/L Chloride 103 (96-108) mmol/L Carbon Dioxide 30 H (22-29) mmol/L Anion Gap 16 (12-20) BUN 25 H (9-16) mg/dL Creatinine 1.56 H (0.5-1.4) mg/dL Estim Creat Clear Calc 41.8 Estimated GFR 43 Random Glucose 182 H (60-115) mg/dL Lactic Acid 1.3 (0.5-2.0) mmol/L Calcium 9.5 D (8.4-10.2) mg/dL Total Bilirubin 0.3 (0.0-1.0) mg/dL AST 14 (5-37) U/L ALT 12 (0-40) U/L Alkaline Phosphatase 111 (39-117) U/L Total Protein 7.3 (6.5-8.0) g/dL Albumin 3.9 (3.5-5.0) g/dL Discharge Plan Discharge Clinical Impression: Pruritus Patient Disposition: Home, Self-Care Instructions: Itchy Skin (ED) Additional Instructions: Use hydroxyzine as prescribed. Follow up with your primary care physician. Prescriptions: New hydroxyzine HCl 25 mg tablet 25 mg PO TID PRN (Reason: itching) Qty: 20 0RF No Action insulin glargine [Lantus U-100 Insulin] 100 unit/mL solution 15 unit subcut BEDTIME atorvastatin 80 mg tablet 80 mg PO BEDTIME aspirin 81 mg tablet,delayed release (DR/EC) 81 mg PO DAILY amlodipine 10 mg tablet 10 mg PO BEDTIME omeprazole 20 mg capsule,delayed release(DR/EC) 20 mg PO DAILY@0630 hydralazine 50 mg Tablet 50 mg PO BID metoprolol succinate 50 mg Tablet Extended Release 24 Hr 50 mg PO DAILY cholecalciferol (vitamin D3) 25 mcg (1,000 unit) tablet 1 tab PO DAILY Trulicity 1.5 mg/0.5 mL pen injector 1.5 mg subcut QWEEK Jardiance 10 mg tablet 1 tab PO DAILY losartan 50 mg tablet 100 mg PO DAILY Rx Instructions: THIS WAS JUST RECENTLY INCREASED TO 100 MG (DME) compr.stocking,knee,long,large Misc See Rx Instructions .Route Qty: 12 0RF Rx Instructions: As directed (DME) compress.stocking,knee,reg,lrg Misc See Rx Instructions .Route Qty: 2 0RF Rx Instructions: As directed doxycycline hyclate 100 mg tablet 100 mg PO BID 30 Days Qty: 60 1RF Interventions: ED Discharge Assessment Last Done: 04/11/22 03:31 Discharge Date/Time: 04/11/22 03:32
[2022-04-11] MEDS: hydrOXYzine HCL 25 MG TABLET PO (03:26)
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
== END 2022-04-11 03:32 | disposition home or self-care (01) ==
PROVIDERS: Emergency Provider Emergency Medicine
DX: L29.9 Pruritus, unspecified (principal); I10 Essential (primary) hypertension; E78.5 Hyperlipidemia, unspecified; Z79.02 Long term (current) use of antithrombotics/antiplatelets; Z79.899 Other long term (current) drug therapy
CPT/HCPCS: 36415; 80053; 83605; 85025; 99282; 99283

== ENCOUNTER 2022-07-03 09:13 | Inpatient (IN) | payer OTHER, SELFPAY ==
[2022-07-03] VITALS (8 sets, daily range): BP systolic 101–162; BP diastolic 49–90; PULSE 54–120; RESP 14–20; TEMP 36.1–36.7; O2SAT 94–98; BMI 25.8
--- NOTE | ~2022-07-03 | XR_ITS ---
EXAMINATION: XR CHEST CLINICAL INFORMATION: Elevated BNP COMPARISON: 01/02/2022 TECHNIQUE: Frontal view of the chest was obtained. FINDINGS: Cardiac leads overlie the chest. The lungs are well expanded. Mild bronchial wall thickening. Patchy opacity at the right lower lung. No pleural effusion or pneumothorax. The cardiomediastinal silhouette is normal in size with a calcified aorta. XR/XR chest 1V IMPRESSION: Bronchial wall thickening can be seen with a small airways process such as asthma or atypical/viral infection. Right lower lung opacity may represent superimposed atelectasis or pneumonia.
--- NOTE | ~2022-07-03 | XR_ITS ---
EXAMINATION: XR FOOT, RIGHT CLINICAL INFORMATION: Rule out osteomyelitis COMPARISON: Radiograph right foot 01/17/[address] right foot 01/18/2022 TECHNIQUE: AP, lateral, and oblique views of the right foot. FINDINGS: There is marked generalized osteopenia and vascular calcifications are present. There is new loss of soft tissue overlying the distal phalanx of the first digit when compared to the prior plain film. There is new, when compared to the prior x-ray, loss of well-defined cortical margin suspicious for osteomyelitis. No fractures are seen. No other areas of bone destruction are identified. XR/XR foot RT min 3V IMPRESSION: Findings suspicious for osteomyelitis involving the distal phalanx of the first digit. MRI may be useful for further evaluation if clinically indicated.
--- NOTE | ~2022-07-03 | US_ITS ---
EXAMINATION: NONINVASIVE ASSESSMENT OF THE ARTERIES OF BOTH LOWER EXTREMITIES WITH PVR EXAM AND BILATERAL LOWER EXTREMITY DUPLEX Stephanie Terry MD CLINICAL INFORMATION: Nonhealing ulcer TECHNIQUE: Ankle pulse volume recordings, ankle pressure measurements and ankle brachial indices were obtained of the lower extremity arterial system bilaterally in addition to duplex Doppler techniques with wave form analysis and measurement of velocities in the common femoral, profunda femoral, superficial femoral, popliteal and tibial arteries. The study was performed only at rest. COMPARISON: None FINDINGS: a) AT REST: RIGHT LE. The right ankle-brachial index is: 1.36 * >0.97-1.25 = normal - no significant arterial disease * 0.75-0.96 = mild peripheral arterial disease * 0.5-0.74 = moderate peripheral arterial disease * <0.50 = severe peripheral arterial disease 2. Right ankle pressure: Elevated 3. Right ankle PVR waveform: Abnormal 4. Right direct duplex Doppler findings: Common femoral artery: 62 cm/s, Multiphasic Profunda femoris artery: 64 cm/s, Multiphasic Superficial femoral artery (proximal): 112 cm/s, Multiphasic Superficial femoral artery (mid): 127 cm/s, Multiphasic Superficial femoral artery (distal): 22 cm/s, Multiphasic Proximal Popliteal artery: 32 cm/s, Multiphasic Mid posterior tibial artery: 21 cm/s, Multiphasic Multiple right thigh collaterals. LEFT LE. The left ankle-brachial index is: 1.36 * >0.97-1.25 = normal - no significant arterial disease * 0.75-0.96 = mild peripheral arterial disease * 0.5-0.74 = moderate peripheral arterial disease * <0.50 = severe peripheral arterial disease 2. Left ankle pressure: normal. 3. Left ankle PVR waveform: normal. 4. Left direct duplex Doppler findings: Common femoral artery: 180 cm/s, Multiphasic Profunda femoris artery: 119 cm/s, Multiphasic Superficial femoral artery (proximal): 133 cm/s, Multiphasic Superficial femoral artery (mid): 215 cm/s, Multiphasic Superficial femoral artery (distal): 64 cm/s, Multiphasic Proximal Popliteal artery: 60 cm/s, Multiphasic Mid posterior tibial artery: 116 cm/s, Multiphasic US/US arterial duplex LE BI IMPRESSION: Bilateral elevated ABIs and diffuse bilateral atherosclerotic disease. RIGHT LEG: No hemodynamically significant stenoses in the right lower extremity. LEFT LEG: Multifocal moderate stenoses in the left mid SFA.
--- NOTE | ~2022-07-03 | XR_ITS ---
EXAMINATION: XR CHEST CLINICAL INFORMATION: Hypoxia COMPARISON: July 03, 2022, January 02, 2022, May 17, 2021, and CT scan of January 10, 2021 TECHNIQUE: AP portable view of the chest was obtained. FINDINGS: The image is rotated limiting evaluation of the right hemithorax. The known right lung densities are not well visualized on today's study with some density seen at the right lung base. There is question of a small pleural effusion. Heart upper limits of normal in size. No evidence of pulmonary edema. No pneumothorax. XR/XR chest 1V IMPRESSION: Question right base disease with small pleural effusion. Limited evaluation as described of known right lung nodules.
--- NOTE | 2022-07-03 09:51 | ECG_ITS ---
Test Reason : CHEST PAIN Blood Pressure : / mmHG Vent. Rate : 072 BPM Atrial Rate : 000 BPM P-R Int : 000 ms QRS Dur : 090 ms QT Int : 406 ms P-R-T Axes : 000 035 -25 degrees QTc Int : 444 ms Baseline artifact Normal sinus rhythm Premature ventricular complexes Abnormal ECG When compared with ECG of 23-SEP-2021 10:40, No significant changes seen Referred By: Lisa Zimmerman Electronically Signed By:JEFFERY PLUMMER
[2022-07-03 10:13] LABS: MANUAL DIFF FLAG NO
[2022-07-03 10:15] LABS: Basophils Absolute Auto 0.1 X10*3/uL (0.0-0.2); Basophils Percent Auto 0.9 % (0-2); Eosinophils Absolute Auto 0.4 X10*3/uL (0.0-0.4); Eosinophils Percent Auto 3.5 % (0-4); Hematocrit 30.9 % (42.0-52.0); Hemoglobin 9.5 g/dl (14.0-18.0); Imm Gran Abs Auto 0.04 X10*3/uL (0.00-0.03); Imm Gran Pct Auto 0.4 % (0.0-0.4); Lymphocytes Absolute Auto 2.9 X10*3/uL (1.2-4.9); Lymphocytes Percent Auto 28.6 % (20-40); Mean Corpuscular HGB Conc 30.7 g/dl (31.0-36.0); Mean Corpuscular Hemoglobin 25.7 pg (27.0-33.0); Mean Corpuscular Volume 83.5 fL (80.0-98.0); Mean Platelet Volume 9.9 fL (9.4-12.4); Monocytes Absolute Auto 0.9 X10*3/uL (0.1-1.2); Neutrophils Absolute Auto 5.8 x10*3/uL (2.0-8.3); Neutrophils Percent Auto 57.6 % (45-73); Platelet Count 336 X10*3/uL (160-400); Red Cell Distribution Width 15.5 % (11.0-16.0)
[2022-07-03] MEDS: cefTRIAXone sodium 1 GM in 0.9 % Sodium Chloride 50 ML IV (10:19)
[2022-07-03 10:20] LABS: Prothrombin Time 11.4 SEC (10.0-13.1)
[2022-07-03 10:28] LABS: COVID-19 Test Negative (Negative); IDNOW Serial# 16C4AD1C
[2022-07-03 10:36] LABS: Lactic Acid 0.9 mmol/L (0.5-2.0)
[2022-07-03 10:40] LABS: Alanine Aminotransferase 10 U/L (0-40); Albumin Level 3.9 g/dL (3.5-5.0); Alkaline Phosphatase 115 U/L (39-117); Anion Gap 16 (12-20); Aspartate Amino Transferase 15 U/L (5-37); Bilirubin Direct 0.2 mg/dL (0.0-0.5); Bilirubin Total 0.5 mg/dL (0.0-1.0); Blood Urea Nitrogen 28 mg/dL (9-16); C Reactive Protein 0.58 mg/dL (< or = 0.50); Calcium 9.7 mg/dL (8.4-10.2); Carbon Dioxide 31 mmol/L (22-29); Chloride 102 mmol/L (96-108); Creatinine Clr Calc Pharmacy 35.9; Estimated Glomerular Filt Rate 47; Glucose Random 131 mg/dL (60-115); Lipase 21 U/L (8-78); Magnesium 2.2 mg/dL (1.6-2.6); Potassium 3.7 mmol/L (3.3-5.1); Sodium 145 mmol/L (135-145); Total Protein 7.2 g/dL (6.5-8.0)
[2022-07-03 10:42] LABS: B Type Natriuretic Peptide 492 pg/mL (<100)
[2022-07-03 10:57] LABS: Erythrocyte Sedimentation Rate 88 MM/HR (0-15)
--- NOTE | 2022-07-03 11:17 | ED_ITS ---
HPI - General Adult General Chief complaint: Skin/Abscess/Foreign Body Stated complaint: rash on body Time Seen by Provider: 07/03/22 09:17 Source: patient Mode of arrival: ambulatory History of Present Illness HPI narrative: 81-year-old male with a past medical history of adenocarcinoma, COPD, dementia, diabetes, CVA, HTN, HLD, presenting to the ED c/o diffuse pruritus, myalgias, neck pain, and right great toe infection x days. Reports mild drainage from toe. Denies fever, chills, fall/ injury, headache, vision change/loss, back p ain, incontinence/ retention, CP/SOB, abdominal pain, paresthesias Onset (ago): day(s) Related Data Home Medications Medication Instructions Recorded Confirmed amlodipine 10 mg tablet 10 mg PO BEDTIME 03/07/21 07/03/22 aspirin 81 mg tablet,delayed 81 mg PO DAILY 03/07/21 07/03/22 release atorvastatin 80 mg tablet 80 mg PO BEDTIME 03/07/21 07/03/22 omeprazole 20 mg capsule,delayed 20 mg PO DAILY@0630 03/07/21 07/03/22 release hydralazine 50 mg tablet 50 mg PO BID 07/07/21 07/03/22 metoprolol succinate 50 mg 50 mg PO DAILY 07/07/21 07/03/22 tablet,extended release 24 hr cholecalciferol (vitamin D3) 25 1 tab PO DAILY 01/17/22 07/03/22 mcg (1,000 unit) tablet insulin glargine 100 unit/mL 15 unit subcut BEDTIME 01/17/22 07/03/22 subcutaneous solution (Lantus U-100 Insulin) empagliflozin 10 mg tablet 1 tab PO DAILY 01/31/22 07/03/22 (Jardiance) losartan 50 mg tablet 50 mg PO DAILY 01/31/22 07/03/22 furosemide 40 mg tablet 1 tab QAM 07/03/22 07/03/22 Previous Rx's Medication Instructions Recorded compr.stocking,knee,long,large #12 ea 08/31/21 compress.stocking,knee,reg,lrg #2 ea 09/23/21 doxycycline hyclate 100 mg tablet 100 mg PO BID 30 days #60 tabs 02/25/22 Allergies Allergy/AdvReac Type Severity Reaction Status Date / Time Penicillins [PENICILLINS] Allergy Intermediate RASH Verified 02/25/22 15:00 Review of Systems Review of Systems: Constitutional: No Fever, No Chills, No Fatigue, No Malaise ENT/Mouth: No Ear Pain, No Nasal Congestion, No sore throat, No Rhinorrhea, No Swallowing Difficulty Eyes: No Eye Pain, No Swelling, No Redness, No Vision Changes Cardiovascular: No Chest Pain, No SOB, +chronic Edema, No Palpitations Respiratory: No Cough, No Sputum, No Wheezing, No Smoke Exposure, No Dyspnea Gastrointestinal: No Nausea, No Vomiting, No Diarrhea, No Constipation, No Abdominal pain Genitourinary: No Dysuria, No Urinary Frequency, No Hematuria, No Urinary Incontinence/retention, No Flank Pain Musculoskeletal: + joint pain, + Myalgias, No Joint Swelling Skin: + Skin Lesions, No rash Neuro: No Weakness, No Numbness, No Paresthesias, No Dizziness, No Headache Yes all other systems are reviewed and are negative Constitutional: Constitutional: Reports as per [facility] Past Medical History Attestation statement: The following information was validated with the patient. Medical History Adenocarcinoma of right lung (~2020) COPD (chronic obstructive pulmonary disease) Dementia Diabetes Former smoker, stopped smoking in distant past History of CVA (cerebrovascular accident) (~07/2020) HTN (hypertension) Hyperlipidemia Pneumonia Surgical History History of lung biopsy (~10/2020) Social History Social History Household Members: Spouse and Family Household Members Other:: step-son spends the night frequently Housing: Apartment Do you presently have visiting nurse or other home services: No Alcohol intake: never Patient Tobacco Use Status: Former Tobacco user Advance Directives: Yes Advance Directives on File: Yes Advance Directives Date on File: 05/24/21 service: No Current occupational status: retired Physical Exam ED Vital Signs: Vital Signs - 24 hr 07/03/22 09:21 07/03/22 09:44 07/03/22 10:30 Temperature 97.8 F 98.0 F Pulse Rate 120 H 67 71 Respiratory Rate 16 18 14 Blood Pressure 150/49 H 123/73 145/56 H Pulse Oximetry 98 98 97 Oxygen Delivery Method Room Air Room Air Room Air 07/03/22 11:32 07/03/22 13:05 Temperature 98.0 F 97.7 F Pulse Rate 68 73 Respiratory Rate 14 18 Blood Pressure 101/59 L 150/62 H Pulse Oximetry 97 95 Oxygen Delivery Method Room Air Room Air BMI result Body Mass Index 25.8 Const General: cooperative and no acute distress Orientation/consciousness: patient oriented x3 Limitations: no limitations HENMT Head: Yes normal to inspection and Yes atraumatic Ears: hearing grossly normal bilaterally General nose exam: Normal external nose present Face and sinus: Yes normal facial exam Eyes General: appearance normal, both eyes and all related structures EOM: EOMs intact bilaterally Neck Other: no midline cervical spinous tenderness /step-off or deformity. Bilateral paraspinal/ trapezius muscle tenderness Neck: Yes normal visual inspection and Yes no meningeal signs Resp Effort & Inspection: normal respiratory effort and no respiratory distress Auscultation: clear to auscultation bilaterally Cardio Rate: regular rate Heart sounds: S1 normal heart sound present and S2 normal heart sound present GI Inspection: Yes normal to inspection Palpation (GI): Soft to palpation and nontender Skin Rashes: no rashes Neuro General: patient oriented x3, gait normal, tone normal, moves all extremities, no meningeal signs, no focal motor deficits and CN's II-XI intact bilaterally Gait exam (Neuro): Normal gait present Extrem Other: please refer to images above, bilateral LE pitting edema > RLE. +RLE erythema and warmth with malodorous wound to great toe. No expressible drainage. NV intact Course Course Course Narrative: -1142-- No leukocytosis, H/H stable, ESR/CRP elevated -Acute on chronic CKD. BNP acute on chronically elevated to 492 XR foot RT min 3V IMPRESSION: Findings suspicious for osteomyelitis involving the distal phalanx of the first digit. MRI may be useful for further evaluation if clinically indicated. >> plan to admit for further management Medications Administered Discontinued Medications Generic Name Dose Route Start Last Admin Trade Name Freq PRN Reason Stop Dose Admin Ceftriaxone Sodium 1 gm/ 50 mls @ 100 mls/hr 07/03/22 09:55 07/03/22 10:58 Sodium Chloride IV 07/03/22 10:24 Infused ONCE ONE Infusion Vancomycin HCl 1,000 mg/ 535 mls @ 267.5 mls/hr 07/03/22 11:00 07/03/22 14:20 Vancomycin HCl 750 mg/ Sodium IV 07/03/22 12:59 Infused Chloride ONCE ONE Infusion Medical Decision Making Medical Decision Making [facility] Narrative: 81-year-old male with a past medical history of adenocarcinoma, COPD, dementia, diabetes, CVA, HTN, HLD, presenting to the ED c/o diffuse pruritus, myalgias, neck pain, and right great toe infection x days. On exam initially tachycardic, NAD/nontoxic appearing, physical exam as above, please refer to images. no evidence of rash. Concern for cellulitis vs osteomyelitis vs CHF vs liver/ renal disease. lower suspicion for meningitis / encephalitis, DVT, ACS/PE Plan: EKG, labs, lactic/ blood cultures, x-ray, empiric IV antibiotics, admission Please refer to course for remaining clinical decision making, interpretation of labs/imaging results, and discussions with consultants and/or family members. Differential Diagnosis Differential Diagnoses: The differential diagnosis associated with the presentation includes as above Admission/Observation Consideration of admission/observation: Escalation of care including admission/observation considered Consult Healthcare Provider Management of the patient was discussed with: Hospitalist Lab Data [facility] Lab Attestation statement: I reviewed the patient's lab results. 07/03/22 10:07 07/03/22 10:07 Labs: Lab Results 07/03/22 07/03/22 07/03/22 Range/Units 10:07 10:07 10:07 WBC 10.0 (4.8-10.8) X10*3/uL RBC 3.70 L (4.60-5.80) X10*6/uL Hgb 9.5 L (14.0-18.0) g/dl Hct 30.9 L (42.0-52.0) % MCV 83.5 (80.0-98.0) fL MCH 25.7 L (27.0-33.0) pg MCHC 30.7 L (31.0-36.0) g/dl RDW 15.5 (11.0-16.0) % Plt Count 336 (160-400) X10*3/uL MPV 9.9 (9.4-12.4) fL Immature Gran % (Auto) 0.4 (0.0-0.4) % Neut % (Auto) 57.6 (45-73) % Lymph % (Auto) 28.6 (20-40) % [place] % (Auto) 9.0 (2-11) % Eos % (Auto) 3.5 (0-4) % Baso % (Auto) 0.9 (0-2) % Lymph # (Auto) 2.9 (1.2-4.9) X10*3/uL [place] # (Auto) 0.9 (0.1-1.2) X10*3/uL Eos # (Auto) 0.4 (0.0-0.4) X10*3/uL Baso # (Auto) 0.1 (0.0-0.2) X10*3/uL Abs Immat Gran (auto) 0.04 H (0.00-0.03) X10*3/uL Absolute Neuts (auto) 5.8 (2.0-8.3) x10*3/uL Absolute Nucleated RBC 0.000 (0.0-0.012) X10*3/uL Nucleated RBC % (auto) 0.0 (0.0-0.2) /100WBC ESR 88 H (0-15) MM/HR PT (10.0-13.1) SEC INR (0.9-1.1) Sodium (135-145) mmol/L Potassium (3.3-5.1) mmol/L Chloride (96-108) mmol/L Carbon Dioxide (22-29) mmol/L Anion Gap (12-20) BUN (9-16) mg/dL Creatinine (0.5-1.4) mg/dL Estim Creat Clear Calc Estimated GFR Random Glucose (60-115) mg/dL Lactic Acid (0.5-2.0) mmol/L Calcium (8.4-10.2) mg/dL Magnesium (1.6-2.6) mg/dL Total Bilirubin (0.0-1.0) mg/dL Direct Bilirubin (0.0-0.5) mg/dL AST (5-37) U/L ALT (0-40) U/L Alkaline Phosphatase (39-117) U/L C-Reactive Protein (< or = 0.50) mg/dL B-Natriuretic Peptide (<100) pg/mL Total Protein (6.5-8.0) g/dL Albumin (3.5-5.0) g/dL Lipase (8-78) U/L Urine Color Urine Appearance Urine pH (5.0-9.0) Ur Specific [place] (1.005-1.025) Urine Protein (Neg-Trace) mg/dL Urine Glucose (UA) (Negative) mg/dL Urine Ketones (Negative) mg/dL Urine Blood (Negative) Urine Nitrite (Negative) Ur Leukocyte Esterase (Negative) Urine RBC (0-2) /HPF Urine WBC (0-5) /HPF Ur Squamous Epith Cells (0-2) /HPF Urine Bacteria (None Seen) Hyaline Casts (0-2) /LPF COVID-19 (SHANA) Negative (Negative) COVID-19 Clin Com See Note 07/03/22 07/03/22 07/03/22 Range/Units 10:07 10:07 10:07 WBC (4.8-10.8) X10*3/uL RBC (4.60-5.80) X10*6/uL Hgb (14.0-18.0) g/dl Hct (42.0-52.0) % MCV (80.0-98.0) fL MCH (27.0-33.0) pg MCHC (31.0-36.0) g/dl RDW (11.0-16.0) % Plt Count (160-400) X10*3/uL MPV (9.4-12.4) fL Immature Gran % (Auto) (0.0-0.4) % Neut % (Auto) (45-73) % Lymph % (Auto) (20-40) % [place] % (Auto) (2-11) % Eos % (Auto) (0-4) % Baso % (Auto) (0-2) % Lymph # (Auto) (1.2-4.9) X10*3/uL [place] # (Auto) (0.1-1.2) X10*3/uL Eos # (Auto) (0.0-0.4) X10*3/uL Baso # (Auto) (0.0-0.2) X10*3/uL Abs Immat Gran (auto) (0.00-0.03) X10*3/uL Absolute Neuts (auto) (2.0-8.3) x10*3/uL Absolute Nucleated RBC (0.0-0.012) X10*3/uL Nucleated RBC % (auto) (0.0-0.2) /100WBC ESR (0-15) MM/HR PT 11.4 (10.0-13.1) SEC INR 1.0 (0.9-1.1) Sodium 145 (135-145) mmol/L Potassium 3.7 (3.3-5.1) mmol/L Chloride 102 (96-108) mmol/L Carbon Dioxide 31 H (22-29) mmol/L Anion Gap 16 (12-20) BUN 28 H (9-16) mg/dL Creatinine 1.43 H (0.5-1.4) mg/dL Estim Creat Clear Calc 35.9 Estimated GFR 47 Random Glucose 131 H (60-115) mg/dL Lactic Acid 0.9 (0.5-2.0) mmol/L Calcium 9.7 (8.4-10.2) mg/dL Magnesium 2.2 (1.6-2.6) mg/dL Total Bilirubin 0.5 (0.0-1.0) mg/dL Direct Bilirubin 0.2 (0.0-0.5) mg/dL AST 15 (5-37) U/L ALT 10 (0-40) U/L Alkaline Phosphatase 115 (39-117) U/L C-Reactive Protein 0.58 H (< or = 0.50) mg/dL B-Natriuretic Peptide (<100) pg/mL Total Protein 7.2 (6.5-8.0) g/dL Albumin 3.9 (3.5-5.0) g/dL Lipase 21 (8-78) U/L Urine Color Urine Appearance Urine pH (5.0-9.0) Ur Specific [place] (1.005-1.025) Urine Protein (Neg-Trace) mg/dL Urine Glucose (UA) (Negative) mg/dL Urine Ketones (Negative) mg/dL Urine Blood (Negative) Urine Nitrite (Negative) Ur Leukocyte Esterase (Negative) Urine RBC (0-2) /HPF Urine WBC (0-5) /HPF Ur Squamous Epith Cells (0-2) /HPF Urine Bacteria (None Seen) Hyaline Casts (0-2) /LPF COVID-19 (SHANA) (Negative) COVID-19 Clin Com 07/03/22 07/03/22 Range/Units 10:07 11:15 WBC (4.8-10.8) X10*3/uL RBC (4.60-5.80) X10*6/uL Hgb (14.0-18.0) g/dl Hct (42.0-52.0) % MCV (80.0-98.0) fL MCH (27.0-33.0) pg MCHC (31.0-36.0) g/dl RDW (11.0-16.0) % Plt Count (160-400) X10*3/uL MPV (9.4-12.4) fL Immature Gran % (Auto) (0.0-0.4) % Neut % (Auto) (45-73) % Lymph % (Auto) (20-40) % [place] % (Auto) (2-11) % Eos % (Auto) (0-4) % Baso % (Auto) (0-2) % Lymph # (Auto) (1.2-4.9) X10*3/uL [place] # (Auto) (0.1-1.2) X10*3/uL Eos # (Auto) (0.0-0.4) X10*3/uL Baso # (Auto) (0.0-0.2) X10*3/uL Abs Immat Gran (auto) (0.00-0.03) X10*3/uL Absolute Neuts (auto) (2.0-8.3) x10*3/uL Absolute Nucleated RBC (0.0-0.012) X10*3/uL Nucleated RBC % (auto) (0.0-0.2) /100WBC ESR (0-15) MM/HR PT (10.0-13.1) SEC INR (0.9-1.1) Sodium (135-145) mmol/L Potassium (3.3-5.1) mmol/L Chloride (96-108) mmol/L Carbon Dioxide (22-29) mmol/L Anion Gap (12-20) BUN (9-16) mg/dL Creatinine (0.5-1.4) mg/dL Estim Creat Clear Calc Estimated GFR Random Glucose (60-115) mg/dL Lactic Acid (0.5-2.0) mmol/L Calcium (8.4-10.2) mg/dL Magnesium (1.6-2.6) mg/dL Total Bilirubin (0.0-1.0) mg/dL Direct Bilirubin (0.0-0.5) mg/dL AST (5-37) U/L ALT (0-40) U/L Alkaline Phosphatase (39-117) U/L C-Reactive Protein (< or = 0.50) mg/dL B-Natriuretic Peptide 492 H (<100) pg/mL Total Protein (6.5-8.0) g/dL Albumin (3.5-5.0) g/dL Lipase (8-78) U/L Urine Color Yellow Urine Appearance Clear Urine pH 7.5 (5.0-9.0) Ur Specific [place] 1.015 (1.005-1.025) Urine Protein 30 (1+) H (Neg-Trace) mg/dL Urine Glucose (UA) >=1000 H (Negative) mg/dL Urine Ketones Negative (Negative) mg/dL Urine Blood Negative (Negative) Urine Nitrite Negative (Negative) Ur Leukocyte Esterase Negative (Negative) Urine RBC 0-2 (0-2) /HPF Urine WBC 0-5 (0-5) /HPF Ur Squamous Epith Cells 0-2 (0-2) /HPF Urine Bacteria None Seen (None Seen) Hyaline Casts 0-2 (0-2) /LPF COVID-19 (SHANA) (Negative) COVID-19 Clin Com Independent Interpretation I performed an independent interpretation of an: EKG ( My interpretation EKG is normal sinus rhythm with PVCs. Rate of 72. QTC 444. No STEMI.) and Plain X- Ray Radiology Impression Discussion of test interpretation with radiology: I have reviewed the radiologist's reading. External Record Review External record reviewed: Inpatient record, Office record and Outpatient record Prescription Management I considered prescription management with: Pain Medication and Antibiotic Chronic Conditions Patient?s care impacted by: Diabetes and Hypertension Critical Care Time Critical Care Time Critical Care Time: Yes Total Critical Care Time: 40 Attestation: I have personally provided critical care time exclusive of time spent on separately billable procedures. Time includes review of lab data, radiology results, discussion with consultants, and monitoring for potential decompensation. Intervention performed as documented. Discharge Plan Discharge Clinical Impression: Diabetic ulcer of toe Patient Disposition: Admitted As Inpatient
[2022-07-03] MEDS: vancomycin HCL 1,000 MG, vancomycin HCL 750 MG in 0.9 % Sodium Chloride 500 ML 267.5 MG IV (11:22)
[2022-07-03 11:33] LABS: Appearance Urine Clear; Color Urine Yellow; Glucose Urine UA >=1000 mg/dL (Negative); Leukocyte Esterase Urine Negative (Negative); Nitrite Urine Negative (Negative); PH 7.5 (5.0-9.0); Specific Gravity - Urine 1.015 (1.005-1.025); UMIC TRIGGER UACC YES; Urine Blood Negative (Negative); Urine Ketones Negative (Negative); Urine Protein 30 (1+) mg/dL (Neg-Trace)
[2022-07-03 11:36] LABS: Bacteria Urine None Seen (None Seen); Hyaline Casts Urine 0-2 /LPF (0-2); RBC Urine 0-2 /HPF (0-2); Squamous Epithelial Cell Urine 0-2 /HPF (0-2); WBC Urine 0-5 /HPF (0-5)
--- NOTE | 2022-07-03 11:38 | PC.NURSE ---
Pt brought from EM for ?sepsis. IV antibiotics infusing.
--- NOTE | 2022-07-03 12:06 | PHA.MEDREC ---
Pharmacy Consult ? Medication Reconciliation Pharmacy has completed the medication reconciliation. Patient did not know any of his medications. Reports he is on Lantus but does not know the amount per prescription patient use Lantus 15 units. Patient get mebox at [facility], there contact them for update list of medications in medbox. Patient also fills doxycyline from [facility] for a 30 day supply. Riri Camilo, CortneyD
--- NOTE | 2022-07-03 14:20 | PC.NURSE ---
Amena ro daughter [phone]
--- NOTE | 2022-07-03 15:29 | PM.IMHP ---
History of Present Illness Date of Service: 07/03/22 Chief Complaint: Right big toe ulcer An 81 years old male with PMH of COPD, CVA, HTN, diabetes, dementia, HLD among others who presented to the hospital with right toe nonhealing ulcer. The patient was treated previously it in January we need to to for osteomyelitis with IV antibiotics with no significant improvement. The patient did not provide much of history given his dementia. He reports that the toes bothering him much more than before with small amount of drainage. Denies any fever, chills, chest pain, palpitation, nausea, vomiting, change in bowel habit or urinary symptoms. An x-ray done in the emergency was concerning for us to this. Admitted for further evaluation and treatment. Review of Systems Review of Systems: No fever, chills or weakness No chest pain, palpitation No shortness of breath or coughing No abdominal pain, nausea or vomiting No urinary symptoms Right big toe wound PMFSH Medical History Adenocarcinoma of right lung (~2020) COPD (chronic obstructive pulmonary disease) Dementia Diabetes Former smoker, stopped smoking in distant past History of CVA (cerebrovascular accident) (~07/2020) HTN (hypertension) Hyperlipidemia Pneumonia Surgical History History of lung biopsy (~10/2020) Social History Household Members: Spouse and Family Household Members Other:: step-son spends the night frequently Housing: Apartment Do you presently have visiting nurse or other home services: No Alcohol intake: never Patient Tobacco Use Status: Former Tobacco user Advance Directives: Yes Advance Directives on File: Yes Advance Directives Date on File: 05/24/21 service: No Current occupational status: retired Meds Allergies Allergy/AdvReac Type Severity Reaction Status Date / Time Penicillins [PENICILLINS] Allergy Intermediate RASH Verified 02/25/22 15:00 Home Medications Medication Instructions Recorded Confirmed Last Taken Type amlodipine 10 mg tablet 10 mg PO BEDTIME 03/07/21 07/03/22 05/16/21 History aspirin 81 mg tablet,delayed 81 mg PO DAILY 03/07/21 07/03/2221 History release atorvastatin 80 mg tablet 80 mg PO BEDTIME 03/07/21 07/03/22 05/16/21 History omeprazole 20 mg capsule,delayed 20 mg PO DAILY@0630 03/07/21 07/03/22 05/16/21 History release hydralazine 50 mg tablet 50 mg PO BID 07/07/21 07/03/22 Unknown History metoprolol succinate 50 mg 50 mg PO DAILY 07/07/21 07/03/22 Unknown History tablet,extended release 24 hr cholecalciferol (vitamin D3) 25 1 tab PO DAILY 01/17/22 07/03/22 Unknown History mcg (1,000 unit) tablet insulin glargine 100 unit/mL 15 unit subcut BEDTIME 01/17/22 07/03/22 Unknown History subcutaneous solution (Lantus U-100 Insulin) empagliflozin 10 mg tablet 1 tab PO DAILY 01/31/22 07/03/22 Unknown History (Jardiance) losartan 50 mg tablet 50 mg PO DAILY 01/31/22 07/03/22 Unknown History furosemide 40 mg tablet 1 tab QAM 07/03/22 07/03/22 Unknown History Physical Exam Vital Signs and Narrative: Vital Signs: Last Vital Signs Temp 97.7 F 07/03/22 13:05 Pulse 73 07/03/22 13:05 Resp 18 07/03/22 13:05 BP 150/62 H 07/03/22 13:05 Pulse Ox 95 07/03/22 13:05 O2 Del Method 07/03/22 13:05 BMI result Body Mass Index 25.8 Const: Other: Constitutional : Awake, interactive, not in distress Neck : Normal inspection, Supple Cardiovascular : RRR, no JVP, no lower extremity edema Respiratory : good bilateral air entry, no crackles, wheezes or rhonchi Gastrointestinal: soft, lax, Normal bowel sounds, Non tender Skin : Warm, Dry, Rt big toe tip dry and open with small amt of drainage Neurological : Alert & oriented to self and place, No focal deficit Extrem: Other: please refer to images above, bilateral LE pitting edema > RLE. +RLE erythema and warmth with malodorous wound to great toe. No expressible drainage. NV intact Results Labs 07/03/22 10:07 07/03/22 10:07 Labs: Laboratory Results - last 24 hr 07/03/22 07/03/22 07/03/22 10:07 10:07 10:07 MCV 83.5 MCH 25.7 L MCHC 30.7 L RDW 15.5 Plt Count 336 MPV 9.9 Immature Gran % (Auto) 0.4 Neut % (Auto) 57.6 Lymph % (Auto) 28.6 [place] % (Auto) 9.0 Eos % (Auto) 3.5 Baso % (Auto) 0.9 Lymph # (Auto) 2.9 [place] # (Auto) 0.9 Eos # (Auto) 0.4 Baso # (Auto) 0.1 Abs Immat Gran (auto) 0.04 H Absolute Neuts (auto) 5.8 Absolute Nucleated RBC 0.000 Nucleated RBC % (auto) 0.0 ESR 88 H PT INR Anion Gap Estim Creat Clear Calc Estimated GFR Random Glucose Lactic Acid Calcium Magnesium Total Bilirubin Direct Bilirubin AST ALT Alkaline Phosphatase C-Reactive Protein B-Natriuretic Peptide Total Protein Albumin Lipase Urine Color Urine Appearance Urine pH Ur Specific [place] Urine Protein Urine Glucose (UA) Urine Ketones Urine Blood Urine Nitrite Ur Leukocyte Esterase Urine RBC Urine WBC Ur Squamous Epith Cells Urine Bacteria Hyaline Casts COVID-19 (SHANA) Negative COVID-19 Clin Com See Note 07/03/22 07/03/22 07/03/22 10:07 10:07 10:07 MCV MCH MCHC RDW Plt Count MPV Immature Gran % (Auto) Neut % (Auto) Lymph % (Auto) [place] % (Auto) Eos % (Auto) Baso % (Auto) Lymph # (Auto) [place] # (Auto) Eos # (Auto) Baso # (Auto) Abs Immat Gran (auto) Absolute Neuts (auto) Absolute Nucleated RBC Nucleated RBC % (auto) ESR PT 11.4 INR 1.0 Anion Gap 16 Estim Creat Clear Calc 35.9 Estimated GFR 47 Random Glucose 131 H Lactic Acid 0.9 Calcium 9.7 Magnesium 2.2 Total Bilirubin 0.5 Direct Bilirubin 0.2 AST 15 ALT 10 Alkaline Phosphatase 115 C-Reactive Protein 0.58 H B-Natriuretic Peptide Total Protein 7.2 Albumin 3.9 Lipase 21 Urine Color Urine Appearance Urine pH Ur Specific [place] Urine Protein Urine Glucose (UA) Urine Ketones Urine Blood Urine Nitrite Ur Leukocyte Esterase Urine RBC Urine WBC Ur Squamous Epith Cells Urine Bacteria Hyaline Casts COVID-19 (SHANA) COVID-19 Clin Com 07/03/22 07/03/22 10:07 11:15 MCV MCH MCHC RDW Plt Count MPV Immature Gran % (Auto) Neut % (Auto) Lymph % (Auto) [place] % (Auto) Eos % (Auto) Baso % (Auto) Lymph # (Auto) [place] # (Auto) Eos # (Auto) Baso # (Auto) Abs Immat Gran (auto) Absolute Neuts (auto) Absolute Nucleated RBC Nucleated RBC % (auto) ESR PT INR Anion Gap Estim Creat Clear Calc Estimated GFR Random Glucose Lactic Acid Calcium Magnesium Total Bilirubin Direct Bilirubin AST ALT Alkaline Phosphatase C-Reactive Protein B-Natriuretic Peptide 492 H Total Protein Albumin Lipase Urine Color Yellow Urine Appearance Clear Urine pH 7.5 Ur Specific [place] 1.015 Urine Protein 30 (1+) H Urine Glucose (UA) >=1000 H Urine Ketones Negative Urine Blood Negative Urine Nitrite Negative Ur Leukocyte Esterase Negative Urine RBC 0-2 Urine WBC 0-5 Ur Squamous Epith Cells 0-2 Urine Bacteria None Seen Hyaline Casts 0-2 COVID-19 (SHANA) COVID-19 Clin Com Imaging Radiologist's Impressions: Impressions Foot X-Ray 07/03/22 11:00 IMPRESSION: Findings suspicious for osteomyelitis involving the distal phalanx of the first digit. MRI may be useful for further evaluation if clinically indicated. Chest X-Ray 07/03/22 11:55 IMPRESSION: Bronchial wall thickening can be seen with a small airways process such as asthma or atypical/viral infection. Right lower lung opacity may represent superimposed atelectasis or pneumonia. Assessment and Plan (1) Osteomyelitis: Status: Acute (2) Diabetic ulcer of right great toe: Status: Acute Plan An 81 years old male with PMH of COPD, CVA, HTN, diabetes, dementia, HLD among others who presented to the hospital with right toe nonhealing ulcer. Right big toe ulcer an diabetic patient Not septic Elevated ESR XR consistent with osteomyelitis Broad-spectrum antibiotic of vancomycin and Levaquin Get surgery and ID evaluations Follow cultures Follow vancomycin trough Type 2 diabetes SSI, POC Continue Lantus Diabetic diet Hypertension Continue amlodipine, hydralazine and losartan HLD Continue statin DVT PPX Lovenox The patient will likely need at least it 2. Nights of hospital stay for evaluation and treatment of osteomyelitis pending safe discharge plan Time Spent With Patient Time: Total time managing care of this patient today ____ minutes. Quality Stroke Does the patient have a stroke diagnosis?: No VTE Prior VTE?: No VTE Risk Level:: Medical - moderate - high VTE Device Contraindication: Treatment Not Indicated VTE Drug Contraindication: N/A - Med Ordered
--- NOTE | 2022-07-03 15:51 | PM.CNGS ---
History of Present Illness Consult details Consult date: 07/03/22 Narrative: 81-year-old male patient presenting to the emergency department with complaints of right great toe pain. He has past medical history of COPD, CVA, hypertension, diabetes, dementia, and hyperlipidemia. He was previously admitted in January 2022 for similar problem and determined to have osteomyelitis of the right great toe. He was subsequently treated with prolonged IV antibiotics. Patient now reports severe pain in the great toe which has increased in severity and is now involving the 2nd toe as well. He previously underwent right arterial duplex scanning which revealed severe disease of the right superficial femoral artery with multiple areas of wall thickening and luminal narrowing. He has been admitted to the hospitalist service for IV antibiotics and further management of the osteomyelitis. He is currently on Levaquin and vancomycin. Review of Systems Review of Systems: Yes Unobtainable due to mental status PMFSH Past Medical History Medical History Adenocarcinoma of right lung (~2020) COPD (chronic obstructive pulmonary disease) Dementia Diabetes Former smoker, stopped smoking in distant past History of CVA (cerebrovascular accident) (~07/2020) HTN (hypertension) Hyperlipidemia Pneumonia Surgical History Surgical History History of lung biopsy (~10/2020) Social History Social History Household Members: Spouse and Family Household Members Other:: step-son spends the night frequently Housing: Apartment Do you presently have visiting nurse or other home services: No Alcohol intake: never Patient Tobacco Use Status: Former Tobacco user Advance Directives: Yes Advance Directives on File: Yes Advance Directives Date on File: 05/24/21 service: No Current occupational status: retired Meds Allergies Allergy/AdvReac Type Severity Reaction Status Date / Time Penicillins [PENICILLINS] Allergy Intermediate RASH Verified 02/25/22 15:00 Active Medications: Current Medications Acetaminophen (Acetaminophen 325 Mg Tablet) 650 mg PO Q6H PRN PRN Reason: Pain, Mild (Pain Scale 1-3) Amlodipine Besylate (Amlodipine Besylate 10 Mg Tablet) 10 mg PO BEDTIME [facility]; Protocol Aspirin (Aspirin Enteric Coated 81 Mg Tablet.Dr) 81 mg PO DAILY [facility] Atorvastatin Calcium (Atorvastatin Calcium 80 Mg Tablet) 80 mg PO BEDTIME [facility] Empagliflozin (Empagliflozin 10 Mg Tablet) 10 mg PO DAILY [facility] Enoxaparin Sodium (Enoxaparin Sodium 40 Mg/0.4 Ml Syringe) 40 mg SUBCUT Q24H [facility] Furosemide (Furosemide 40 Mg Tablet) 40 mg PO DAILY [facility]; Protocol Hydralazine HCl (Hydralazine Hcl 50 Mg Tablet) 50 mg PO BID [facility]; Protocol Levofloxacin (Levaquin) 500 mg in 100 mls @ 100 mls/hr IV Q24H [facility] Vancomycin HCl 1,000 mg/ (Sodium Chloride) 270 mls @ 270 mls/hr IV Q24H [facility] Insulin Glargine (Insulin Glargine,Hum.Rec.Anlog 100 Unit/Ml 10 Ml Vial) 15 unit SUBCUT BEDTIME [facility] Insulin Human Lispro (Insulin Lispro 100 Unit/Ml 3 Ml Vial) 0 unit SUBCUT QIDACHS [facility]; Protocol Losartan Potassium (Losartan Potassium 50 Mg Tablet) 50 mg PO DAILY [facility]; Protocol Metoprolol Succinate (Metoprolol Succinate Er 50 Mg Tab.Er.24h) 50 mg PO DAILY [facility]; Protocol Omeprazole (Omeprazole 20 Mg Capsule.) 20 mg PO DAILY@0630 [facility] Ondansetron HCl (Ondansetron Hcl 4 Mg/2 Ml Vial) 4 mg IVPUSH Q8H PRN PRN Reason: Nausea and Vomiting Pharmacy Consult (Consult Rx Vancomycin Dosing) 1 each MISCELLANE DAILY PRN PRN Reason: Consult order Sodium Chloride (0.9 % Sodium Chloride Flush 3 Ml Syringe) 3 ml IVFLUSH QSHIFT [facility] Vitamin D (Cholecalciferol (Vitamin D3) 25 Mcg Tablet) 25 mcg PO DAILY [facility] Home Medications Medication Instructions Recorded Confirmed Last Taken Type amlodipine 10 mg tablet 10 mg PO BEDTIME 03/07/21 07/03/22 05/16/21 History aspirin 81 mg tablet,delayed 81 mg PO DAILY 03/07/21 07/03/22 05/16/21 History release atorvastatin 80 mg tablet 80 mg PO BEDTIME 03/07/21 07/03/22 05/16/21 History omeprazole 20 mg capsule,delayed 20 mg PO DAILY@0630 03/07/21 07/03/22 05/16/21 History release hydralazine 50 mg tablet 50 mg PO BID 07/07/21 07/03/22 Unknown History metoprolol succinate 50 mg 50 mg PO DAILY 07/07/21 07/03/22 Unknown History tablet,extended release 24 hr cholecalciferol (vitamin D3) 25 1 tab PO DAILY 01/17/22 07/03/22 Unknown History mcg (1,000 unit) tablet insulin glargine 100 unit/mL 15 unit subcut BEDTIME 01/17/22 07/03/22 Unknown History subcutaneous solution (Lantus U-100 Insulin) empagliflozin 10 mg tablet 1 tab PO DAILY 01/31/22 07/03/22 Unknown History (Jardiance) losartan 50 mg tablet 50 mg PO DAILY 01/31/22 07/03/22 Unknown History furosemide 40 mg tablet 1 tab QAM 07/03/22 07/03/22 Unknown History Physical Exam Vital Signs: Vital Signs: Last Vital Signs Temp 97.7 F 07/03/22 13:05 Pulse 73 07/03/22 13:05 Resp 18 07/03/22 13:05 BP 150/62 H 07/03/22 13:05 Pulse Ox 95 07/03/22 13:05 O2 Del Method 07/03/22 13:05 BMI result Body Mass Index 25.8 Const: General: comfortable and no acute distress Nutritional Appearance: well nourished Orientation/consciousness: patient oriented x3 Limitations: no limitations Resp: Effort & Inspection: normal respiratory effort, no audible wheezes, no cough and no respiratory distress GI: Inspection: Yes normal to inspection Skin: General skin exam: no rashes or lesions noted Neuro: General: patient oriented x3 Extrem: Other: Right great toe with an area dry crusted eschar at the tip below the nail bed, tender to light palpation. Erythema is noted in the 2nd toe over the dorsal surface with a new blister noted over the distal phalanx just below the nail fold. Erythema extends to the proximal phalanx. No other ulceration is noted. No plantar ulceration could be identified. See photos below. Results Labs 07/03/22 10:07 07/03/22 10:07 Labs: Abnormal lab results 07/03/22 07/03/22 07/03/22 Range/Units 10:07 10:07 10:07 RBC 3.70 L (4.60-5.80) X10*6/uL Hgb 9.5 L (14.0-18.0) g/dl Hct 30.9 L (42.0-52.0) % MCH 25.7 L (27.0-33.0) pg MCHC 30.7 L (31.0-36.0) g/dl Abs Immat Gran (auto) 0.04 H (0.00-0.03) X10*3/uL ESR 88 H (0-15) MM/HR Carbon Dioxide 31 H (22-29) mmol/L BUN 28 H (9-16) mg/dL Creatinine 1.43 H (0.5-1.4) mg/dL Random Glucose 131 H (60-115) mg/dL C-Reactive Protein 0.58 H (< or = 0.50) mg/dL B-Natriuretic Peptide (<100) pg/mL Urine Protein (Neg-Trace) mg/dL Urine Glucose (UA) (Negative) mg/dL 07/03/22 07/03/22 Range/Units 10:07 11:15 RBC (4.60-5.80) X10*6/uL Hgb (14.0-18.0) g/dl Hct (42.0-52.0) % MCH (27.0-33.0) pg MCHC (31.0-36.0) g/dl Abs Immat Gran (auto) (0.00-0.03) X10*3/uL ESR (0-15) MM/HR Carbon Dioxide (22-29) mmol/L BUN (9-16) mg/dL Creatinine (0.5-1.4) mg/dL Random Glucose (60-115) mg/dL C-Reactive Protein (< or = 0.50) mg/dL B-Natriuretic Peptide 492 H (<100) pg/mL Urine Protein 30 (1+) H (Neg-Trace) mg/dL Urine Glucose (UA) >=1000 H (Negative) mg/dL Short CBC 07/03/22 Range/Units 10:07 WBC 10.0 (4.8-10.8) X10*3/uL Hgb 9.5 L (14.0-18.0) g/dl Hct 30.9 L (42.0-52.0) % Plt Count 336 (160-400) X10*3/uL BMP 07/03/22 10:07 Sodium 145 Potassium 3.7 Chloride 102 Carbon Dioxide 31 H BUN 28 H Creatinine 1.43 H Calcium 9.7 Liver Function 07/03/22 Range/Units 10:07 Total Bilirubin 0.5 (0.0-1.0) mg/dL Direct Bilirubin 0.2 (0.0-0.5) mg/dL AST 15 (5-37) U/L ALT 10 (0-40) U/L Alkaline Phosphatase 115 (39-117) U/L Albumin 3.9 (3.5-5.0) g/dL Urine 07/03/22 Range/Units 11:15 Urine Color Yellow Urine Appearance Clear Urine pH 7.5 (5.0-9.0) Ur Specific Winn 1.015 (1.005-1.025) Urine Protein 30 (1+) H (Neg-Trace) mg/dL Urine Glucose (UA) >=1000 H (Negative) mg/dL All other labs normal. Imaging Additional studies: EXAMINATION: ULTRASOUND ARTERIAL DUPLEX RIGHT LOWER EXTREMITY CLINICAL INFORMATION: Nonhealing wound. Question peripheral vascular disease.? COMPARISON: Previous exam March 2008 TECHNIQUE: Doppler color and grayscale evaluation of the arteries of the right lower extremity including waveform spectral analysis? FINDINGS: There is significant calcified plaque. The right common femoral artery is patent. Right common femoral artery peak systolic velocity is 107 cm/s. There is a mono to biphasic waveform.? The right proximal profunda is patent. Systolic velocity is 71 cm/s. There is a monophasic to biphasic waveform. There is severe disease of the right superficial femoral artery with multiple areas of wall thickening and luminal narrowing. Right superficial femoral systolic velocities measure 44, 44 and 25 cm/s proximally, in the midportion and distally. There is a monophasic waveform. There are collateral vessel arising from the proximal and mid right superficial femoral artery. The right popliteal artery is patent. Peak systolic velocity is 34 cm/s. There is a monophasic waveform. The right posterior tibial artery appears very small in caliber with segmental stenoses. Right superior tibial artery peak systolic velocity is 67 cm/s. There is a monophasic waveform. There is a collateral off the visualized right posterior tibial artery. 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 Assessment and Plan (1) Diabetic ulcer of right great toe: Status: Acute (2) Osteomyelitis: Status: Acute Plan Persistent right great toe ulcer associated with diabetes mellitus with underlying osteomyelitis. Patient has improved after antibiotics. Previous workup with arterial duplex scanning revealed severe right SFA arterial disease. Recommend vascular surgery consultation. Agree with antibiotics at this time. Time Spent With Patient Time: Total time managing care of this patient today ____ minutes. Procedures Date of Service Date of Service: 07/03/22
[2022-07-03] MEDS: levoFLOXacin/D5W 500 MG/100 ML PIGGYBACK 100 MG IV (17:10)
[2022-07-03] MEDS: Acetaminophen 325 MG TABLET 650 MG PO (17:10)
[2022-07-03 18:00] LABS: Glucose, Whole Blood 164 mg/dL (60-115)
[2022-07-03] MEDS: Insulin Lispro 100 UNIT/ML 3 ML VIAL SUBCUT ×2 (18:20→20:38)
[2022-07-03] MEDS: Enoxaparin Sodium 40 MG/0.4 ML SYRINGE SUBCUT (18:20)
[2022-07-03 20:30] LABS: Glucose, Whole Blood 186 mg/dL (60-115)
[2022-07-03] MEDS: hydrALAZINE HCl 50 MG TABLET PO (20:37)
[2022-07-03] MEDS: Atorvastatin Calcium 80 MG TABLET PO (20:38)
[2022-07-03] MEDS: amLODIPine Besylate 10 MG TABLET PO (20:38)
[2022-07-03] MEDS: Insulin Glargine,Hum.rec.anlog 100 UNIT/ML 10 ML VIAL 15 UNIT SUBCUT (20:38)
[2022-07-03] MEDS: 0.9 % Sodium Chloride Flush 3 ML SYRINGE IVFLUSH (20:39)
[2022-07-03] MEDS: oxyCODONE HCl Immed Release 5 MG TABLET PO (23:04)
[2022-07-04 03:59] VITALS: BP 139/65; PULSE 68; RESP 18; TEMP 36.7; O2SAT 94
[2022-07-04] MEDS: diphenhydrAMINE HCL 25 MG CAPSULE PO (05:02)
--- NOTE | 2022-07-04 06:00 | PC.NURSE ---
Pt's daughter Ashely (HCP) contact phone numer
--- NOTE | 2022-07-04 06:03 | PC.NURSE ---
At 23:04 this RN gave pt one time dose of Oxyccdone 5mg PO. A few hours later pt reported feeling itchy all over body. MD notified and one time dose of Benadryl was given. This RN reassess pt and pt stated his itchiness has gone down a little bit. Will continue to monitor pt's symptom.
[2022-07-04 06:16] LABS: MANUAL DIFF FLAG NO
[2022-07-04 06:21] LABS: Basophils Absolute Auto 0.1 X10*3/uL (0.0-0.2); Basophils Percent Auto 0.5 % (0-2); Eosinophils Absolute Auto 0.3 X10*3/uL (0.0-0.4); Eosinophils Percent Auto 3.1 % (0-4); Hematocrit 28.6 % (42.0-52.0); Hemoglobin 8.9 g/dl (14.0-18.0); Imm Gran Abs Auto 0.07 X10*3/uL (0.00-0.03); Imm Gran Pct Auto 0.7 % (0.0-0.4); Lymphocytes Absolute Auto 3.2 X10*3/uL (1.2-4.9); Lymphocytes Percent Auto 33.9 % (20-40); Mean Corpuscular HGB Conc 31.1 g/dl (31.0-36.0); Mean Corpuscular Hemoglobin 25.6 pg (27.0-33.0); Mean Corpuscular Volume 82.4 fL (80.0-98.0); Mean Platelet Volume 10.6 fL (9.4-12.4); Monocytes Absolute Auto 0.8 X10*3/uL (0.1-1.2); Monocytes Percent Auto 7.9 % (2-11); Neutrophils Absolute Auto 5.1 x10*3/uL (2.0-8.3); Neutrophils Percent Auto 53.9 % (45-73); Platelet Count 328 X10*3/uL (160-400); Red Blood Count 3.47 X10*6/uL (4.60-5.80); Red Cell Distribution Width 15.6 % (11.0-16.0); White Blood Count 9.5 X10*3/uL (4.8-10.8)
[2022-07-04 07:06] LABS: Glucose Random 53 mg/dL (60-115)
[2022-07-04 07:09] LABS: Anion Gap 14 (12-20); Blood Urea Nitrogen 22 mg/dL (9-16); Calcium 9.1 mg/dL (8.4-10.2); Carbon Dioxide 28 mmol/L (22-29); Chloride 103 mmol/L (96-108); Creatinine Clr Calc Pharmacy 45.4; Estimated Glomerular Filt Rate > 60; Potassium 3.5 mmol/L (3.3-5.1); Sodium 141 mmol/L (135-145)
[2022-07-04 07:42] LABS: Glucose, Whole Blood 62 mg/dL (60-115)
[2022-07-04 07:42] LABS: Glucose, Whole Blood 55 mg/dL (60-115)
--- NOTE | 2022-07-04 07:42 | HE.PHANOTE ---
Vancomycin Dosing Addendum Patient has only received a proper load at this time. will continue with 1 gram Q24H. predicted AUC 434 mg/L/hr. Next draw 07/05 @0900
--- NOTE | 2022-07-04 07:49 | P.CDIC_ITS ---
CDI Concurrent Query Documentation Clarification: PHYSICIAN'S DOCUMENTATION REQUEST Date of Query: 07/04/22 0749 Patient Name: Jerome Davis Admit Date: 07/03/22 Dear Doctor, A review of the medical record indicates additional documentation may be needed. Please review below and update the documentation accordingly. Clinical Indicators: Documentation on 07/03/22 indicates Osteomyelitis. Risk Factors/Clinical Indicators/Treatments per MD progress note: XR consistent with osteomyelitis Broad-spectrum antibiotic of vancomycin and Levaquin Based on the above, please clarify in the Progress Notes further specificity regarding the type of Osteomyelitis. Also include specific site with laterality and known or suspected infectious agent: * Acute osteomyelitis * Acute hematogenous osteomyelitis * Subacute osteomyelitis * Chronic osteomyelitis * Chronic hemotogenous osteomyelitis * Chronic multifocal osteomyelitis * Chronic osteomyelitis with draining sinus * Other (please specify) * Unable to determine Use of terms such as suspected, likely, concern for, or probable (associated with a specific diagnosis that is being evaluated, monitored, or treated as if it exists) are acceptable and can be coded in the inpatient setting, when documented at the time of discharge. Thank you, Aimee Anaya RN Extension: [phone] Please use your independent medical judgment in providing your response. THIS QUERY IS PART OF THE PERMANENT MEDICAL RECORD Provider Response: Other Other Diagnosis: acute on chronic osteomyelitis
[2022-07-04 08:00] VITALS: BP 139/65; PULSE 68; RESP 18; TEMP 36.4; O2SAT 90
[2022-07-04 08:12] LABS: Glucose, Whole Blood 88 mg/dL (60-115)
[2022-07-04] MEDS: Aspirin Enteric Coated 81 MG TABLET.DR PO (08:25)
[2022-07-04] MEDS: Empagliflozin 10 MG TABLET PO (08:25)
[2022-07-04] MEDS: Cholecalciferol (Vitamin D3) 25 MCG TABLET PO (08:25)
[2022-07-04] MEDS: Losartan Potassium 50 MG TABLET PO (08:25)
[2022-07-04] MEDS: 0.9 % Sodium Chloride Flush 3 ML SYRINGE IVFLUSH ×3 (08:25→21:08)
[2022-07-04] MEDS: hydrALAZINE HCl 50 MG TABLET PO ×2 (08:25→21:04)
[2022-07-04] MEDS: Metoprolol Succinate ER 50 MG TAB.ER.24H PO (08:25)
[2022-07-04] MEDS: Furosemide 40 MG TABLET PO (08:25)
[2022-07-04 11:45] LABS: Glucose, Whole Blood 152 mg/dL (60-115)
[2022-07-04] MEDS: vancomycin HCL 1,000 MG in 0.9 % Sodium Chloride 250 ML 270 MG IV (11:54)
[2022-07-04] MEDS: Insulin Lispro 100 UNIT/ML 3 ML VIAL SUBCUT ×2 (11:57→21:04)
--- NOTE | 2022-07-04 13:06 | P.PNIM_ITS ---
Subjective Subjective Date of Service: 07/04/22 Interval History: complaining of pain in rt big toe No fever or chills had reaction to Oxycodone with rash, resolved Review of Systems No fever, chills or weakness No chest pain, palpitation No shortness of breath or coughing No abdominal pain, nausea or vomiting No urinary symptoms Right big toe wound Constitutional Constitutional: Reports as per HPI Physical Exam Vital Signs: Vital Signs: Last Vital Signs Temp 97.6 F 07/04/22 08:00 Pulse 68 07/04/22 08:00 Resp 18 07/04/22 08:00 BP 139/65 07/04/22 08:00 Pulse Ox 90 L 07/04/22 08:00 O2 Del Method 07/04/22 08:00 O2 Flow Rate 22.0 07/03/22 19:42 BMI result Body Mass Index 25.8 Const: Other: Constitutional : Awake, interactive, not in distress Neck : Normal inspection, Supple Cardiovascular : RRR, no JVP, no lower extremity edema Respiratory : good bilateral air entry, no crackles, wheezes or rhonchi Gastrointestinal: soft, lax, Normal bowel sounds, Non tender Skin : Warm, Dry, Rt big toe tip dry and open with small amt of drainage Neurological : Alert & oriented to self and place, No focal deficit Objective Data Active Medications Acetaminophen (Acetaminophen 325 Mg Tablet) 650 mg PO Q6H PRN PRN Reason: Pain, Mild (Pain Scale 1-3) Last Admin: 07/03/22 17:10 Dose: 650 mg Documented By: JAKE Amlodipine Besylate (Amlodipine Besylate 10 Mg Tablet) 10 mg PO BEDTIME [facility]; Protocol Last Admin: 07/03/22 20:38 Dose: 10 mg Documented By: HERBIE Aspirin (Aspirin Enteric Coated 81 Mg Tablet.) 81 mg PO DAILY [facility] Last Admin: 07/04/22 08:25 Dose: 81 mg Documented By: DONALD Atorvastatin Calcium (Atorvastatin Calcium 80 Mg Tablet) 80 mg PO BEDTIME [facility] Last Admin: 07/03/22 20:38 Dose: 80 mg Documented By: HERBIE Empagliflozin (Empagliflozin 10 Mg Tablet) 10 mg PO DAILY [facility] Last Admin: 07/04/22 08:25 Dose: 10 mg Documented By: DONALD Enoxaparin Sodium (Enoxaparin Sodium 40 Mg/0.4 Ml Syringe) 40 mg SUBCUT Q24H [facility] Last Admin: 07/03/22 18:20 Dose: 40 mg Documented By: FREDDIE Furosemide (Furosemide 40 Mg Tablet) 40 mg PO DAILY [facility]; Protocol Last Admin: 07/04/22 08:25 Dose: 40 mg Documented By: DONALD Hydralazine HCl (Hydralazine Hcl 50 Mg Tablet) 50 mg PO BID [facility]; Protocol Last Admin: 07/04/22 08:25 Dose: 50 mg Documented By: DONALD Levofloxacin (Levaquin) 500 mg in 100 mls @ 100 mls/hr IV Q24H [facility] Last Infusion: 07/03/22 19:54 Dose: 0 mls/hr Documented By: HERBIE Vancomycin HCl 1,000 mg/ (Sodium Chloride) 270 mls @ 270 mls/hr IV Q24H [facility] Last Admin: 07/04/22 11:54 Dose: 270 mls/hr Documented By: DONALD Insulin Glargine (Insulin Glargine,Hum.Rec.Anlog 100 Unit/Ml 10 Ml Vial) 10 unit SUBCUT BEDTIME [facility] Insulin Human Lispro (Insulin Lispro 100 Unit/Ml 3 Ml Vial) 0 unit SUBCUT QIDACHS [facility]; Protocol Last Admin: 07/04/22 11:57 Dose: 2 unit Documented By: DONALD Losartan Potassium (Losartan Potassium 50 Mg Tablet) 50 mg PO DAILY [facility]; Protocol Last Admin: 07/04/22 08:25 Dose: 50 mg Documented By: DONALD Metoprolol Succinate (Metoprolol Succinate Er 50 Mg Tab.Er.24h) 50 mg PO DAILY [facility]; Protocol Last Admin: 07/04/22 08:25 Dose: 50 mg Documented By: DONALD Morphine Sulfate (Morphine Sulfate 2 Mg/Ml Cartridge) 2 mg IVPUSH Q4H PRN; Protocol PRN Reason: Pain, Severe (Pain Scale 7-10) Omeprazole (Omeprazole 20 Mg Capsule.Dr) 20 mg PO DAILY@0630 [facility] Last Admin: 07/04/22 06:27 Dose: Not Given Documented By: HERBIE Non-Admin Reason: Patient Refused Ondansetron HCl (Ondansetron Hcl 4 Mg/2 Ml Vial) 4 mg IVPUSH Q8H PRN PRN Reason: Nausea and Vomiting Pharmacy Consult (Consult Rx Vancomycin Dosing) 1 each MISCELLANE DAILY PRN PRN Reason: Consult order Sodium Chloride (0.9 % Sodium Chloride Flush 3 Ml Syringe) 3 ml IVFLUSH QSHIFT [facility] Last Admin: 07/04/22 08:25 Dose: 3 ml Documented By: DONALD Vitamin D (Cholecalciferol (Vitamin D3) 25 Mcg Tablet) 25 mcg PO DAILY [facility] Last Admin: 07/04/22 08:25 Dose: 25 mcg Documented By: DONALD Labs 07/04/22 05:47 07/04/22 05:47 Labs: Laboratory Results - last 24 hr 07/03/22 07/03/22 07/04/22 17:55 20:14 05:47 MCV 82.4 MCH 25.6 L MCHC 31.1 RDW 15.6 Plt Count 328 MPV 10.6 Immature Gran % (Auto) 0.7 H Neut % (Auto) 53.9 Lymph % (Auto) 33.9 [place] % (Auto) 7.9 Eos % (Auto) 3.1 Baso % (Auto) 0.5 Lymph # (Auto) 3.2 [place] # (Auto) 0.8 Eos # (Auto) 0.3 Baso # (Auto) 0.1 Abs Immat Gran (auto) 0.07 H Absolute Neuts (auto) 5.1 Absolute Nucleated RBC 0.000 Nucleated RBC % (auto) 0.0 Anion Gap Estim Creat Clear Calc Estimated GFR POC Glucose 164 H 186 H Random Glucose Calcium 07/04/22 07/04/22 07/04/22 05:47 07:10 07:35 MCV MCH MCHC RDW Plt Count MPV Immature Gran % (Auto) Neut % (Auto) Lymph % (Auto) [place] % (Auto) Eos % (Auto) Baso % (Auto) Lymph # (Auto) [place] # (Auto) Eos # (Auto) Baso # (Auto) Abs Immat Gran (auto) Absolute Neuts (auto) Absolute Nucleated RBC Nucleated RBC % (auto) Anion Gap 14 Estim Creat Clear Calc 45.4 Estimated GFR > 60 POC Glucose 55 L* 62 Random Glucose 53 L* Calcium 9.1 D 07/04/22 07/04/22 08:08 11:22 MCV MCH MCHC RDW Plt Count MPV Immature Gran % (Auto) Neut % (Auto) Lymph % (Auto) [place] % (Auto) Eos % (Auto) Baso % (Auto) Lymph # (Auto) [place] # (Auto) Eos # (Auto) Baso # (Auto) Abs Immat Gran (auto) Absolute Neuts (auto) Absolute Nucleated RBC Nucleated RBC % (auto) Anion Gap Estim Creat Clear Calc Estimated GFR POC Glucose 88 152 H Random Glucose Calcium Microbiology Microbiology Results: Microbiology 07/03/22 10:21 Blood Culture - Preliminary Blood - Venous No growth after 24 hours. 07/03/22 10:07 Blood Culture - Preliminary Blood - Venous No growth after 24 hours. 07/03/22 10:07 Gram Stain - Final Toe Routine Culture - Preliminary Culture in progress. Assessment and Plan (1) Diabetic ulcer of toe: Status: Acute (2) Osteomyelitis: Status: Acute Plan An 81 years old male with PMH of COPD, CVA, HTN, diabetes, dementia, HLD among others who presented to the hospital with right toe nonhealing ulcer. Persistent Right big toe osteomyelitis in DMII XR consistent with osteomyelitis Broad-spectrum antibiotic of vancomycin and Levaquin surgery input appreciated, needs vascular eval Pending Vascular & ID evaluations Follow cultures Follow vancomycin trough Type 2 diabetes SSI, POC Continue Lantus Diabetic diet Hypertension Continue amlodipine, hydralazine and losartan HLD Continue statin DVT PPX Lovenox The patient will likely need at least it overnight hospital stay for evaluation and treatment of osteomyelitis pending safe discharge plan Time Spent With Patient Time: Total time managing care of this patient today ____ minutes. Quality Stroke Does the patient have a stroke diagnosis?: No VTE Prior VTE?: No VTE Risk Level:: Medical - moderate - high VTE Device Contraindication: Treatment Not Indicated VTE Drug Contraindication: N/A - Med Ordered
--- NOTE | 2022-07-04 13:49 | MHC.CM.PN ---
PT REPORTS HE LIVES WITH HIS S/O AND HAS VNA AND [employer] DAILY HE REPORTS HIS VNA IS THROUGH HOME C[facility] HE SAYS HE USUALLY DOES NOT REQUIRE DME BUT USES A CANE PRN HIS PCP IS [facility] HE IS COVID [facility] HCP ON FILE IMM DELIVERED PT REPORTS HE HAS DONE IV ABX AT HOME IN THE PAST AND WOULD WANT TO DO THE SAME IF THEY ARE NEEDED AGAIN HE IS AWARE REFERRALS ARE OUT TO [facility] FAMILY WILL TRANSPORT AT [place]
[2022-07-04 15:25] VITALS: BP 126/60; PULSE 62; RESP 18; TEMP 36.7; O2SAT 96
--- NOTE | 2022-07-04 15:42 | PM.CNGS ---
History of Present Illness Consult details Consult date: 07/04/22 Reason for consult: wound care Narrative: Very pleasant 81-year-old gentleman presents for evaluation regarding nonhealing right great toe ulcer. He has a history of diabetes in actually was admitted towards the end of May for treatment. He was subsequently discharged. He presents for recurrent ulceration. He now presents to us for vascular evaluation. Review of Systems Review of Systems: Yes all other systems are reviewed and are negative Constitutional: Constitutional: Reports no additional constitutional complaints ENT: Reports Normal hearing present Cardiovascular: Cardiovascular: Denies chest pain, Denies chest pain at rest, Denies chest pain with activity and Denies pedal edema Respiratory: Respiratory: Denies cough Gastrointestinal: Gastrointestinal: Denies abdominal pain Musculoskeletal: Musculoskeletal: Denies abnormal gait, Denies muscle cramps and Denies radiating pain into limb Integumentary/Breasts: Skin/Breast: Denies skin ulcer and Denies wounds Neurologic: Reports Normal hearing present and Denies abnormal gait Psychiatric: Psychiatric: Reports no additional psychiatric complaints PMFSH Past Medical History Medical History Adenocarcinoma of right lung (~2020) COPD (chronic obstructive pulmonary disease) Dementia Diabetes Former smoker, stopped smoking in distant past History of CVA (cerebrovascular accident) (~07/2020) HTN (hypertension) Hyperlipidemia Pneumonia Surgical History Surgical History History of lung biopsy (~10/2020) Social History Social History Household Members: Family Household Members Other:: step-son spends the night frequently Housing: Apartment Do you presently have visiting nurse or other home services: No Alcohol intake: never Patient Tobacco Use Status: Former Tobacco user Advance Directives Date on File: 05/24/21 service: No Current occupational status: retired Meds Allergies Allergy/AdvReac Type Severity Reaction Status Date / Time Penicillins [PENICILLINS] Allergy Intermediate RASH Verified 02/25/22 15:00 Active Medications: Current Medications Acetaminophen (Acetaminophen 325 Mg Tablet) 650 mg PO Q6H PRN PRN Reason: Pain, Mild (Pain Scale 1-3) Last Admin: 07/03/22 17:10 Dose: 650 mg Amlodipine Besylate (Amlodipine Besylate 10 Mg Tablet) 10 mg PO BEDTIME [facility]; Protocol Last Admin: 07/03/22 20:38 Dose: 10 mg Aspirin (Aspirin Enteric Coated 81 Mg Tablet.Dr) 81 mg PO DAILY [facility] Last Admin: 07/04/22 08:25 Dose: 81 mg Atorvastatin Calcium (Atorvastatin Calcium 80 Mg Tablet) 80 mg PO BEDTIME [facility] Last Admin: 07/03/22 20:38 Dose: 80 mg Empagliflozin (Empagliflozin 10 Mg Tablet) 10 mg PO DAILY [facility] Last Admin: 07/04/22 08:25 Dose: 10 mg Enoxaparin Sodium (Enoxaparin Sodium 40 Mg/0.4 Ml Syringe) 40 mg SUBCUT Q24H [facility] Last Admin: 07/03/22 18:20 Dose: 40 mg Furosemide (Furosemide 40 Mg Tablet) 40 mg PO DAILY [facility]; Protocol Last Admin: 07/04/22 08:25 Dose: 40 mg Hydralazine HCl (Hydralazine Hcl 50 Mg Tablet) 50 mg PO BID [facility]; Protocol Last Admin: 07/04/22 08:25 Dose: 50 mg Levofloxacin (Levaquin) 500 mg in 100 mls @ 100 mls/hr IV Q24H [facility] Last Infusion: 07/03/22 19:54 Dose: Infused Vancomycin HCl 1,000 mg/ (Sodium Chloride) 270 mls @ 270 mls/hr IV Q24H [facility] Last Infusion: 07/04/22 13:34 Dose: Infused Insulin Glargine (Insulin Glargine,Hum.Rec.Anlog 100 Unit/Ml 10 Ml Vial) 10 unit SUBCUT BEDTIME [facility] Insulin Human Lispro (Insulin Lispro 100 Unit/Ml 3 Ml Vial) 0 unit SUBCUT QIDACHS [facility]; Protocol Last Admin: 07/04/22 11:57 Dose: 2 unit Losartan Potassium (Losartan Potassium 50 Mg Tablet) 50 mg PO DAILY [facility]; Protocol Last Admin: 07/04/22 08:25 Dose: 50 mg Metoprolol Succinate (Metoprolol Succinate Er 50 Mg Tab.Er.24h) 50 mg PO DAILY [facility]; Protocol Last Admin: 07/04/22 08:25 Dose: 50 mg Morphine Sulfate (Morphine Sulfate 2 Mg/Ml Cartridge) 2 mg IVPUSH Q4H PRN; Protocol PRN Reason: Pain, Severe (Pain Scale 7-10) Omeprazole (Omeprazole 20 Mg Capsule.) 20 mg PO DAILY@0630 [facility] Last Admin: 07/04/22 06:27 Dose: Not Given Ondansetron HCl (Ondansetron Hcl 4 Mg/2 Ml Vial) 4 mg IVPUSH Q8H PRN PRN Reason: Nausea and Vomiting Pharmacy Consult (Consult Rx Vancomycin Dosing) 1 each MISCELLANE DAILY PRN PRN Reason: Consult order Sodium Chloride (0.9 % Sodium Chloride Flush 3 Ml Syringe) 3 ml IVFLUSH QSHIFT [facility] Last Admin: 07/04/22 08:25 Dose: 3 ml Vitamin D (Cholecalciferol (Vitamin D3) 25 Mcg Tablet) 25 mcg PO DAILY [facility] Last Admin: 07/04/22 08:25 Dose: 25 mcg Home Medications Medication Instructions Recorded Confirmed Last Taken Type amlodipine 10 mg tablet 10 mg PO BEDTIME 03/07/21 07/03/22 05/16/21 History aspirin 81 mg tablet,delayed 81 mg PO DAILY 03/07/21 07/03/22 05/16/21 History release atorvastatin 80 mg tablet 80 mg PO BEDTIME 03/07/21 07/03/22 05/16/21 History omeprazole 20 mg capsule,delayed 20 mg PO DAILY@0630 03/07/21 07/03/22 05/16/21 History release hydralazine 50 mg tablet 50 mg PO BID 07/07/21 07/03/22 Unknown History metoprolol succinate 50 mg 50 mg PO DAILY 07/07/21 07/03/22 Unknown History tablet,extended release 24 hr cholecalciferol (vitamin D3) 25 1 tab PO DAILY 01/17/22 07/03/22 Unknown History mcg (1,000 unit) tablet insulin glargine 100 unit/mL 15 unit subcut BEDTIME 01/17/22 07/03/22 Unknown History subcutaneous solution (Lantus U-100 Insulin) empagliflozin 10 mg tablet 1 tab PO DAILY 01/31/22 07/03/22 Unknown History (Jardiance) losartan 50 mg tablet 50 mg PO DAILY 01/31/22 07/03/22 Unknown History furosemide 40 mg tablet 1 tab QAM 07/03/22 07/03/22 Unknown History Physical Exam Vital Signs: Vital Signs: Last Vital Signs Temp 98.1 F 07/04/22 15:25 Pulse 62 07/04/22 15:25 Resp 18 07/04/22 15:25 BP 126/60 07/04/22 15:25 Pulse Ox 96 07/04/22 15:25 O2 Del Method 07/04/22 15:25 O2 Flow Rate 22.0 07/03/22 19:42 BMI result Body Mass Index 25.8 Const: General: cooperative, healthy appearing and comfortable Orientation/consciousness: oriented to person, oriented to place and oriented to time HEENT: Head: Yes normal to inspection Neck: Neck: Yes normal visual inspection Carotids: no bruits Chest: Chest palpation & inspection: normal inspection of the chest Resp: Effort & Inspection: normal respiratory effort and able to speak in complete sentences Auscultation: clear to auscultation bilaterally, no crackles, no rales, no rhonchi and no wheezes Cardio: Rate: regular rate Rhythm: regular rhythm Heart sounds: S1 normal heart sound present and S2 normal heart sound present Bruits: no carotid bruits Peripheral pulses: dorsalis pedis present (Bilateral DP signals) GI: Inspection: Yes normal to inspection Skin: Other: Ulcer tip of right great toe and the dorsum of the 2nd toe. Wounds: no wounds and wounds noted Hair: normal Neuro: General: oriented to person, oriented to place and oriented to time Cranial nerves: Yes CN's II-XII intact bilaterally and Yes Normal hearing present Cognition (Neuro): normal cognition Motor exam (neuro): 5/5 motor strength present throughout Extrem: Other: venous exam: No significant superficial varicosities or spider telangiectasias, minimal edema General: No clubbing, No cyanosis and No edema Psych: Appearance: grossly normal Mental Status: mental status grossly normal Speech and movement: Normal speech and movement present Results Labs 07/04/22 05:47 07/04/22 05:47 Labs: Abnormal lab results 07/03/22 07/03/22 07/04/22 Range/Units 17:55 20:14 05:47 RBC 3.47 L (4.60-5.80) X10*6/uL Hgb 8.9 L (14.0-18.0) g/dl Hct 28.6 L (42.0-52.0) % MCH 25.6 L (27.0-33.0) pg Immature Gran % (Auto) 0.7 H (0.0-0.4) % Abs Immat Gran (auto) 0.07 H (0.00-0.03) X10*3/uL BUN (9-16) mg/dL POC Glucose 164 H 186 H (60-115) mg/dL Random Glucose (60-115) mg/dL 07/04/22 07/04/22 07/04/22 Range/Units 05:47 07:10 11:22 RBC (4.60-5.80) X10*6/uL Hgb (14.0-18.0) g/dl Hct (42.0-52.0) % MCH (27.0-33.0) pg Immature Gran % (Auto) (0.0-0.4) % Abs Immat Gran (auto) (0.00-0.03) X10*3/uL BUN 22 H (9-16) mg/dL POC Glucose 55 L* 152 H (60-115) mg/dL Random Glucose 53 L* (60-115) mg/dL Short CBC 07/04/22 Range/Units 05:47 WBC 9.5 (4.8-10.8) X10*3/uL Hgb 8.9 L (14.0-18.0) g/dl Hct 28.6 L (42.0-52.0) % Plt Count 328 (160-400) X10*3/uL BMP 07/04/22 05:47 Sodium 141 Potassium 3.5 Chloride 103 Carbon Dioxide 28 BUN 22 H Creatinine 1.13 Calcium 9.1 D Urine 07/03/22 Range/Units 11:15 Urine Color Yellow Urine Appearance Clear Urine pH 7.5 (5.0-9.0) Ur Specific [place] 1.015 (1.005-1.025) Urine Protein 30 (1+) H (Neg-Trace) mg/dL Urine Glucose (UA) >=1000 H (Negative) mg/dL All other labs normal. Assessment and Plan (1) PAD (peripheral artery disease): Status: Acute In short patient has an element of PA D. will get noninvasive arterial testing. Patient had prior testing which was positive for some arterial insufficiency. On 01/24/2022 arterial ultrasound was concerning for right SFA disease. Will plan for repeat testing. Should it be positive may require endovascular intervention. (2) Diabetic ulcer of toe: Status: Acute Plan Continue with local wound care. May require right great toe amputation. Time Spent With Patient Time: Total time managing care of this patient today ____ minutes. Procedures Date of Service Date of Service: 07/04/22
[2022-07-04 16:35] LABS: Glucose, Whole Blood 142 mg/dL (60-115)
[2022-07-04] MEDS: levoFLOXacin/D5W 500 MG/100 ML PIGGYBACK 100 MG IV (16:45)
[2022-07-04] MEDS: Enoxaparin Sodium 40 MG/0.4 ML SYRINGE SUBCUT (17:40)
[2022-07-04 19:18] VITALS: BP 150/67; PULSE 64; RESP 17; TEMP 36.4; O2SAT 93
[2022-07-04 20:35] LABS: Glucose, Whole Blood 171 mg/dL (60-115)
[2022-07-04] MEDS: Atorvastatin Calcium 80 MG TABLET PO (21:04)
[2022-07-04] MEDS: amLODIPine Besylate 10 MG TABLET PO (21:04)
[2022-07-04] MEDS: Insulin Glargine,Hum.rec.anlog 100 UNIT/ML 10 ML VIAL 10 UNIT SUBCUT (21:05)
[2022-07-05 03:04] VITALS: BP 144/65; PULSE 60; RESP 18; TEMP 37.1; O2SAT 94
[2022-07-05] MEDS: Omeprazole 20 MG CAPSULE.DR PO (05:11)
[2022-07-05 07:02] LABS: Anion Gap 14 (12-20); Blood Urea Nitrogen 25 mg/dL (9-16); Calcium 9.4 mg/dL (8.4-10.2); Carbon Dioxide 28 mmol/L (22-29); Chloride 101 mmol/L (96-108); Creatinine Clr Calc Pharmacy 35.6; Estimated Glomerular Filt Rate 47; Glucose Random 97 mg/dL (60-115); Sodium 139 mmol/L (135-145)
[2022-07-05 07:32] LABS: Glucose, Whole Blood 99 mg/dL (60-115)
[2022-07-05 07:46] VITALS: BP 156/69; PULSE 68; RESP 18; TEMP 36.6; O2SAT 94
[2022-07-05] MEDS: Cholecalciferol (Vitamin D3) 25 MCG TABLET PO (08:13)
[2022-07-05] MEDS: hydrALAZINE HCl 50 MG TABLET PO ×2 (08:13→20:12)
[2022-07-05] MEDS: Empagliflozin 10 MG TABLET PO (08:13)
[2022-07-05] MEDS: 0.9 % Sodium Chloride Flush 3 ML SYRINGE IVFLUSH ×3 (08:13→20:34)
[2022-07-05] MEDS: Losartan Potassium 50 MG TABLET PO (08:13)
[2022-07-05] MEDS: Metoprolol Succinate ER 50 MG TAB.ER.24H PO (08:14)
[2022-07-05] MEDS: Aspirin Enteric Coated 81 MG TABLET.DR PO (08:14)
[2022-07-05] MEDS: Furosemide 40 MG TABLET PO (08:14)
--- NOTE | 2022-07-05 10:01 | HE.PHANOTE ---
Vancomycin Dosing Addendum Patients level came back at 13 mg/L. Continuing dose of 1000 mg Q24H. next draw is 07/07 @0900. Will monitor renal as it is creepy up. Scr at 1.44 from 1.13
[2022-07-05] MEDS: vancomycin HCL 1,000 MG in 0.9 % Sodium Chloride 250 ML 270 MG IV (10:29)
--- NOTE | 2022-07-05 10:33 | MHC.CM.PN ---
PER MD ROUNDS, PT WITH VASCULAR CONSULT PENDING TO DETERMINE RECOMMENDED COURSE OF TREATMENT PT REPORTS HE WANTS TO DC HOME AND CAN MANAGE IV ABX IF NEEDED OF NOTE: PT HAS HAD IV ABX AT HOME IN THE RECENT PAST
--- NOTE | 2022-07-05 10:40 | HO.VASCPN ---
Subjective Subjective Date of Service: 07/05/22 Patient reports: no new complaints and feels better Interval history: Patient seen and examined. No significant events overnight. Appears to be doing relatively well in terms of pain control. He was up in a chair when I saw and examined him. Of note he has undergone noninvasive arterial testing yesterday. He now presents for routine follow-up or Physical Exam Vital Signs: Vital Signs: Last Vital Signs Temp 98 F 07/05/22 07:46 Pulse 68 07/05/22 07:46 Resp 18 07/05/22 07:46 BP 156/69 H 07/05/22 07:46 Pulse Ox 94 07/05/22 07:46 O2 Del Method 07/05/22 07:46 O2 Flow Rate 22.0 07/03/22 19:42 BMI result Body Mass Index 25.8 Const: General: cooperative, healthy appearing and no acute distress Orientation/consciousness: oriented to person, oriented to place and oriented to time HEENT: Head: Yes normal to inspection Neck: Carotids: no bruits Chest: Chest palpation & inspection: normal inspection of the chest Resp: Effort & Inspection: normal respiratory effort and able to speak in complete sentences Auscultation: clear to auscultation bilaterally Cardio: Rate: regular rate Heart sounds: S1 normal heart sound present and S2 normal heart sound present GI: Inspection: Yes normal to inspection Skin: Other: Right great toe penetrating to bone General skin exam: no rashes or lesions noted Wounds: wounds noted Neuro: General: oriented to person, oriented to place, oriented to time and CN's II-XI intact bilaterally Extrem: General: Yes normal to inspection, Yes full ROM and Yes no clubbing, cyanosis or edema Psych: Appearance: grossly normal and well kempt Speech and movement: Normal speech and movement present Affect: normal affect Progress Note: A&P Assessment and plan (1) Diabetic ulcer of right great toe: Status: Acute Assessment and Plan: In short patient has a nonhealing right great toe. He has had multiple trials of conservative management which have not resolved it. In addition he has had noninvasive arterial testing which is within normal limits. I did discuss the findings with the patient. The patient will require right great toe amputation. Risks benefits complications of the procedure were discussed in detail with the patient. The patient understood and consented. We will schedule him for Friday. This was discussed with the hospitalist team. Time Spent With Patient Time: Total time managing care of this patient today ____ minutes. Procedures Date of Service Date of Service: 07/05/22 Quality Stroke Does the patient have a stroke diagnosis?: No VTE Prior VTE?: No VTE Risk Level:: Medical - moderate - high VTE Device Contraindication: Treatment Not Indicated VTE Drug Contraindication: N/A - Med Ordered
--- NOTE | 2022-07-05 10:57 | HO.PM.IMPN ---
Subjective Subjective Date of Service: 07/05/22 Interval History: Seen and evaluated this morning reporting of pain in rt big toe Vascular studies looked Ok No fever or chills Review of Systems No fever, chills or weakness No chest pain, palpitation No shortness of breath or coughing No abdominal pain, nausea or vomiting No urinary symptoms Right big toe wound Constitutional Constitutional: Reports as per HPI and Reports no additional constitutional complaints ENT Ears, Nose, Mouth, and Throat: Reports Normal hearing present Cardiovascular Cardiovascular: Denies chest pain, Denies chest pain at rest, Denies chest pain with activity and Denies pedal edema Respiratory Respiratory: Denies cough Gastrointestinal Gastrointestinal: Denies abdominal pain Musculoskeletal Musculoskeletal: Denies abnormal gait, Denies muscle cramps and Denies radiating pain into limb Integumentary/Breasts Skin/Breast: Denies skin ulcer and Denies wounds Neurologic Neurologic: Reports Normal hearing present and Denies abnormal gait Psychiatric Psychiatric: Reports no additional psychiatric complaints Physical Exam Vital Signs: Vital Signs: Last Vital Signs Temp 98 F 07/05/22 07:46 Pulse 68 07/05/22 07:46 Resp 18 07/05/22 07:46 BP 156/69 H 07/05/22 07:46 Pulse Ox 94 07/05/22 07:46 O2 Del Method 07/05/22 07:46 O2 Flow Rate 22.0 07/03/22 19:42 BMI result Body Mass Index 25.8 Const: Other: Constitutional : Awake, interactive, not in distress Neck : Normal inspection, Supple Cardiovascular : RRR, no JVP, no lower extremity edema Respiratory : good bilateral air entry, no crackles, wheezes or rhonchi Gastrointestinal: soft, lax, Normal bowel sounds, Non tender Skin : Warm, Dry, Rt big toe tip dry and open with small amt of drainage Neurological : Alert & oriented to self and place, No focal deficit Neuro: Cranial nerves: Yes Normal hearing present Objective Data Active Medications Acetaminophen (Acetaminophen 325 Mg Tablet) 650 mg PO Q6H PRN PRN Reason: Pain, Mild (Pain Scale 1-3) Last Admin: 07/03/22 17:10 Dose: 650 mg Documented By: JAKE Amlodipine Besylate (Amlodipine Besylate 10 Mg Tablet) 10 mg PO BEDTIME [facility]; Protocol Last Admin: 07/04/22 21:04 Dose: 10 mg Documented By: BROOKE Aspirin (Aspirin Enteric Coated 81 Mg Tablet.) 81 mg PO DAILY [facility] Last Admin: 07/05/22 08:14 Dose: 81 mg Documented By: DONALD Atorvastatin Calcium (Atorvastatin Calcium 80 Mg Tablet) 80 mg PO BEDTIME [facility] Last Admin: 07/04/22 21:04 Dose: 80 mg Documented By: BROOKE Empagliflozin (Empagliflozin 10 Mg Tablet) 10 mg PO DAILY [facility] Last Admin: 07/05/22 08:13 Dose: 10 mg Documented By: DONALD Enoxaparin Sodium (Enoxaparin Sodium 40 Mg/0.4 Ml Syringe) 40 mg SUBCUT Q24H [facility] Last Admin: 07/04/22 17:40 Dose: 40 mg Documented By: DONALD Furosemide (Furosemide 40 Mg Tablet) 40 mg PO DAILY [facility]; Protocol Last Admin: 07/05/22 08:14 Dose: 40 mg Documented By: DONALD Hydralazine HCl (Hydralazine Hcl 50 Mg Tablet) 50 mg PO BID [facility]; Protocol Last Admin: 07/05/22 08:13 Dose: 50 mg Documented By: DONALD Levofloxacin (Levaquin) 500 mg in 100 mls @ 100 mls/hr IV Q24H [facility] Last Infusion: 07/04/22 17:48 Dose: 0 mls/hr Documented By: DONALD Vancomycin HCl 1,000 mg/ (Sodium Chloride) 270 mls @ 270 mls/hr IV Q24H [facility] Last Admin: 07/05/22 10:29 Dose: 270 mls/hr Documented By: DONALD Insulin Glargine (Insulin Glargine,Hum.Rec.Anlog 100 Unit/Ml 10 Ml Vial) 10 unit SUBCUT BEDTIME [facility] Last Admin: 07/04/22 21:05 Dose: 10 unit Documented By: BROOKE Insulin Human Lispro (Insulin Lispro 100 Unit/Ml 3 Ml Vial) 0 unit SUBCUT QIDACHS [facility]; Protocol Last Admin: 07/05/22 07:36 Dose: Not Given Documented By: DONALD Non-Admin Reason: No Insulin Coverage Losartan Potassium (Losartan Potassium 50 Mg Tablet) 50 mg PO DAILY [facility]; Protocol Last Admin: 07/05/22 08:13 Dose: 50 mg Documented By: DONALD Metoprolol Succinate (Metoprolol Succinate Er 50 Mg Tab.Er.24h) 50 mg PO DAILY [facility]; Protocol Last Admin: 07/05/22 08:14 Dose: 50 mg Documented By: DONALD Morphine Sulfate (Morphine Sulfate 2 Mg/Ml Cartridge) 2 mg IVPUSH Q4H PRN; Protocol PRN Reason: Pain, Severe (Pain Scale 7-10) Omeprazole (Omeprazole 20 Mg Capsule.Dr) 20 mg PO DAILY@0630 [facility] Last Admin: 07/05/22 05:11 Dose: 20 mg Documented By: BROOKE Ondansetron HCl (Ondansetron Hcl 4 Mg/2 Ml Vial) 4 mg IVPUSH Q8H PRN PRN Reason: Nausea and Vomiting Pharmacy Consult (Consult Rx Vancomycin Dosing) 1 each MISCELLANE DAILY PRN PRN Reason: Consult order Sodium Chloride (0.9 % Sodium Chloride Flush 3 Ml Syringe) 3 ml IVFLUSH QSHIFT [facility] Last Admin: 07/05/22 08:13 Dose: 3 ml Documented By: DONALD Vitamin D (Cholecalciferol (Vitamin D3) 25 Mcg Tablet) 25 mcg PO DAILY [facility] Last Admin: 07/05/22 08:13 Dose: 25 mcg Documented By: DONALD Labs 07/04/22 05:47 07/05/22 05:51 Labs: Laboratory Results - last 24 hr 07/04/22 07/04/22 07/04/22 11:22 16:32 20:24 Anion Gap Estim Creat Clear Calc Estimated GFR POC Glucose 152 H 142 H 171 H Random Glucose Calcium Random Vancomycin 07/05/22 07/05/22 07/05/22 05:51 07:01 08:52 Anion Gap 14 Estim Creat Clear Calc 35.6 Estimated GFR 47 POC Glucose 99 Random Glucose 97 Calcium 9.4 Random Vancomycin 13.0 L Microbiology Microbiology Results: Microbiology 07/03/22 10:07 Gram Stain - Final Toe Routine Culture - Preliminary Pseudomonas species 07/03/22 10:21 Blood Culture - Preliminary Blood - Venous No growth after 24 hours. 07/03/22 10:07 Blood Culture - Preliminary Blood - Venous No growth after 24 hours. Assessment and Plan (1) Diabetic ulcer of right great toe: Status: Acute Assessment and Plan: An 81 years old male with PMH of COPD, CVA, HTN, diabetes, dementia, HLD among others who presented to the hospital with right toe nonhealing ulcer. 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 XR consistent with osteomyelitis wound Cx growing Pseudomonas pending sensitivity Broad-spectrum antibiotic of vancomycin and Levaquin vascular surgery input appreciated, needs amputation of big toe by Friday Vascular studies (doppler) looked ok, no major obstruction or stenosis Pending ID evaluation Follow vancomycin trough Type 2 diabetes SSI, POC Continue Lantus Diabetic diet Hypertension Continue amlodipine, hydralazine and losartan HLD Continue statin DVT PPX Lovenox The patient will likely need at least overnight hospital stay for evaluation and treatment of osteomyelitis pending safe discharge plan Time Spent With Patient Time: Total time managing care of this patient today ____ minutes. Quality Stroke Does the patient have a stroke diagnosis?: No VTE Prior VTE?: No VTE Risk Level:: Medical - moderate - high VTE Device Contraindication: Treatment Not Indicated VTE Drug Contraindication: N/A - Med Ordered
[2022-07-05 11:53] LABS: Glucose, Whole Blood 178 mg/dL (60-115)
[2022-07-05] MEDS: Insulin Lispro 100 UNIT/ML 3 ML VIAL SUBCUT ×3 (12:22→20:13)
[2022-07-05 15:33] VITALS: BP 123/60; PULSE 59; RESP 20; TEMP 37.3; O2SAT 96
--- NOTE | 2022-07-05 16:21 | W.PM.IDCN ---
History of Present Illness Data of Consult Service Date: 07/05/22 Requesting physician: Douglas Yee Primary Care Provider: Unknown Physician HPI Reason for consult: right great toe erythema He presents with right foot erythema about a week. He has no fever or chills. He has OM on Xray. I did treat with six weeks IV Ertapenem in January. Review of Systems Review of Systems: Yes all other systems are reviewed and are negative PMFSH Past Medical History Medical History Adenocarcinoma of right lung (~2020) COPD (chronic obstructive pulmonary disease) Dementia Diabetes Former smoker, stopped smoking in distant past History of CVA (cerebrovascular accident) (~07/2020) HTN (hypertension) Hyperlipidemia Pneumonia Family History Family history: reviewed and not pertinent Surgical History Surgical History History of lung biopsy (~10/2020) Social History Social History Household Members: Family Household Members Other:: step-son spends the night frequently Housing: Apartment Do you presently have visiting nurse or other home services: No Alcohol intake: never Patient Tobacco Use Status: Former Tobacco user Advance Directives Date on File: 05/24/21 service: No Current occupational status: retired Meds Allergies Allergy/AdvReac Type Severity Reaction Status Date / Time Penicillins [PENICILLINS] Allergy Intermediate RASH Verified 02/25/22 15:00 Active Medications: Current Medications Acetaminophen (Acetaminophen 325 Mg Tablet) 650 mg PO Q6H PRN PRN Reason: Pain, Mild (Pain Scale 1-3) Last Admin: 07/03/22 17:10 Dose: 650 mg Amlodipine Besylate (Amlodipine Besylate 10 Mg Tablet) 10 mg PO BEDTIME [facility]; Protocol Last Admin: 07/04/22 21:04 Dose: 10 mg Aspirin (Aspirin Enteric Coated 81 Mg Tablet.) 81 mg PO DAILY [facility] Last Admin: 07/05/22 08:14 Dose: 81 mg Atorvastatin Calcium (Atorvastatin Calcium 80 Mg Tablet) 80 mg PO BEDTIME [facility] Last Admin: 07/04/22 21:04 Dose: 80 mg Empagliflozin (Empagliflozin 10 Mg Tablet) 10 mg PO DAILY [facility] Last Admin: 07/05/22 08:13 Dose: 10 mg Enoxaparin Sodium (Enoxaparin Sodium 40 Mg/0.4 Ml Syringe) 40 mg SUBCUT Q24H [facility] Last Admin: 07/04/22 17:40 Dose: 40 mg Furosemide (Furosemide 40 Mg Tablet) 40 mg PO DAILY [facility]; Protocol Last Admin: 07/05/22 08:14 Dose: 40 mg Hydralazine HCl (Hydralazine Hcl 50 Mg Tablet) 50 mg PO BID [facility]; Protocol Last Admin: 07/05/22 08:13 Dose: 50 mg Levofloxacin (Levaquin) 500 mg in 100 mls @ 100 mls/hr IV Q24H [facility] Last Infusion: 07/04/22 17:48 Dose: Infused Vancomycin HCl 1,000 mg/ (Sodium Chloride) 270 mls @ 270 mls/hr IV Q24H [facility] Last Infusion: 07/05/22 11:46 Dose: Infused Insulin Glargine (Insulin Glargine,Hum.Rec.Anlog 100 Unit/Ml 10 Ml Vial) 10 unit SUBCUT BEDTIME [facility] Last Admin: 07/04/22 21:05 Dose: 10 unit Insulin Human Lispro (Insulin Lispro 100 Unit/Ml 3 Ml Vial) 0 unit SUBCUT QIDACHS [facility]; Protocol Last Admin: 07/05/22 12:22 Dose: 2 unit Losartan Potassium (Losartan Potassium 50 Mg Tablet) 50 mg PO DAILY [facility]; Protocol Last Admin: 07/05/22 08:13 Dose: 50 mg Metoprolol Succinate (Metoprolol Succinate Er 50 Mg Tab.Er.24h) 50 mg PO DAILY [facility]; Protocol Last Admin: 07/05/22 08:14 Dose: 50 mg Morphine Sulfate (Morphine Sulfate 2 Mg/Ml Cartridge) 2 mg IVPUSH Q4H PRN; Protocol PRN Reason: Pain, Severe (Pain Scale 7-10) Omeprazole (Omeprazole 20 Mg Capsule.Dr) 20 mg PO DAILY@0630 [facility] Last Admin: 07/05/22 05:11 Dose: 20 mg Ondansetron HCl (Ondansetron Hcl 4 Mg/2 Ml Vial) 4 mg IVPUSH Q8H PRN PRN Reason: Nausea and Vomiting Pharmacy Consult (Consult Rx Vancomycin Dosing) 1 each MISCELLANE DAILY PRN PRN Reason: Consult order Sodium Chloride (0.9 % Sodium Chloride Flush 3 Ml Syringe) 3 ml IVFLUSH QSHIFT [facility] Last Admin: 07/05/22 08:13 Dose: 3 ml Vitamin D (Cholecalciferol (Vitamin D3) 25 Mcg Tablet) 25 mcg PO DAILY [facility] Last Admin: 07/05/22 08:13 Dose: 25 mcg Home Medications Medication Instructions Recorded Confirmed Last Taken Type amlodipine 10 mg tablet 10 mg PO BEDTIME 03/07/21 07/03/22 05/16/21 History aspirin 81 mg tablet,delayed 81 mg PO DAILY 03/07/21 07/03/22 05/16/21 History release atorvastatin 80 mg tablet 80 mg PO BEDTIME 03/07/21 07/03/22 05/16/21 History omeprazole 20 mg capsule,delayed 20 mg PO DAILY@0630 03/07/21 07/03/22 05/16/21 History release hydralazine 50 mg tablet 50 mg PO BID 07/07/21 07/03/22 Unknown History metoprolol succinate 50 mg 50 mg PO DAILY 07/07/21 07/03/22 Unknown History tablet,extended release 24 hr cholecalciferol (vitamin D3) 25 1 tab PO DAILY 01/17/22 07/03/22 Unknown History mcg (1,000 unit) tablet insulin glargine 100 unit/mL 15 unit subcut BEDTIME 01/17/22 07/03/22 Unknown History subcutaneous solution (Lantus U-100 Insulin) empagliflozin 10 mg tablet 1 tab PO DAILY 01/31/22 07/03/22 Unknown History (Jardiance) losartan 50 mg tablet 50 mg PO DAILY 01/31/22 07/03/22 Unknown History furosemide 40 mg tablet 1 tab QAM 07/03/22 07/03/22 Unknown History Physical Exam Vital Signs: Vital Signs: Last Vital Signs Temp 99.2 F 07/05/22 15:33 Pulse 59 07/05/22 15:33 Resp 20 07/05/22 15:33 BP 123/60 07/05/22 15:33 Pulse Ox 96 07/05/22 15:33 O2 Del Method 07/05/22 15:33 O2 Flow Rate 22.0 07/03/22 19:42 BMI result Body Mass Index 25.8 Const: General: cooperative HEENT: Head: Yes normal to inspection Face and sinus: Yes normal facial exam Mouth: Normal oral and palatal mucosa present Teeth and gingiva: dentition normal Eyes: General: appearance normal, both eyes and all related structures Pupils: Equal, round and reactive pupils present Resp: Effort & Inspection: normal respiratory effort Cardio: Rate: regular rate Rhythm: regular rhythm GI: Palpation (GI): Soft to palpation and nontender : General: Yes no CVA tenderness Back/Spine/Pelvis: Back: no CVA tenderness Skin: General skin exam: no rashes or lesions noted Neuro: General: moves all extremities Cranial nerves: Yes Equal, round and reactive pupils present Extrem: Other: right great toe erythema Psych: Appearance: grossly normal Results Labs 07/04/22 05:47 07/05/22 05:51 Labs: BMP 07/05/22 05:51 Sodium 139 Potassium 4.0 Chloride 101 Carbon Dioxide 28 BUN 25 H Creatinine 1.44 H Calcium 9.4 Microbiology Microbiology Results: Microbiology 07/03/22 10:21 Blood - Venous Blood Culture - Preliminary No growth after 48 hours. 07/03/22 10:07 Toe Gram Stain - Final 07/03/22 10:07 Toe Routine Culture - Preliminary Pseudomonas species 07/03/22 10:07 Blood - Venous Blood Culture - Preliminary No growth after 48 hours. Assessment and Plan (1) Diabetic ulcer of toe: Status: Acute Maybe related to Pseudomonas (2) Diabetic ulcer of right great toe: Status: Acute Plan await culture may do po Levaquin if sensitive for six weeks. Continue Vancomycin until gram positive results back Time Spent With Patient Time: Total time managing care of this patient today ____ minutes.
[2022-07-05 16:29] LABS: Glucose, Whole Blood 229 mg/dL (60-115)
[2022-07-05] MEDS: levoFLOXacin/D5W 500 MG/100 ML PIGGYBACK 100 MG IV (16:35)
[2022-07-05] MEDS: Enoxaparin Sodium 40 MG/0.4 ML SYRINGE SUBCUT (17:44)
[2022-07-05 19:32] VITALS: BP 136/63; PULSE 59; RESP 18; TEMP 36.8; O2SAT 97
[2022-07-05 19:35] LABS: Glucose, Whole Blood 214 mg/dL (60-115)
[2022-07-05] MEDS: Insulin Glargine,Hum.rec.anlog 100 UNIT/ML 10 ML VIAL 10 UNIT SUBCUT (20:12)
[2022-07-05] MEDS: Atorvastatin Calcium 80 MG TABLET PO (20:12)
[2022-07-05] MEDS: Acetaminophen 325 MG TABLET 650 MG PO (20:16)
[2022-07-05] MEDS: amLODIPine Besylate 10 MG TABLET PO (20:33)
[2022-07-06 03:01] VITALS: BP 128/85; PULSE 64; RESP 18; TEMP 36.5; O2SAT 99
--- NOTE | 2022-07-06 05:22 | PC.NURSE ---
pt was complaining about the itciness, provide cleaning, pt took a nap, but still itchy, notified, ordered benadrly once dose.
[2022-07-06] MEDS: diphenhydrAMINE HCL 25 MG CAPSULE PO (05:28)
[2022-07-06] MEDS: Omeprazole 20 MG CAPSULE.DR PO (05:28)
[2022-07-06 07:30] VITALS: BP 176/74; PULSE 66; RESP 16; TEMP 37; O2SAT 94
[2022-07-06 08:04] LABS: Glucose, Whole Blood 151 mg/dL (60-115)
[2022-07-06] MEDS: Insulin Lispro 100 UNIT/ML 3 ML VIAL SUBCUT ×3 (08:33→21:30)
[2022-07-06] MEDS: 0.9 % Sodium Chloride Flush 3 ML SYRINGE IVFLUSH ×3 (08:33→20:19)
[2022-07-06] MEDS: vancomycin HCL 1,000 MG in 0.9 % Sodium Chloride 250 ML 270 MG IV (10:31)
--- NOTE | 2022-07-06 11:31 | PC.NURSE ---
Patient refused all PO morning medications, Subq insulin given and IV antibiotic administered, Dr Yee made aware.
[2022-07-06 11:34] LABS: Glucose, Whole Blood 139 mg/dL (60-115)
--- NOTE | 2022-07-06 11:37 | P.PNIM_ITS ---
Subjective Subjective Date of Service: 07/06/22 Interval History: Seen and evaluated this morning isolated, refusing meds, not interested in talking No fever or chills Review of Systems No fever, chills or weakness No chest pain, palpitation No shortness of breath or coughing No abdominal pain, nausea or vomiting No urinary symptoms Right big toe wound Constitutional Constitutional: Reports as per HPI and Reports no additional constitutional complaints Cardiovascular Cardiovascular: Denies chest pain, Denies chest pain at rest, Denies chest pain with activity and Denies pedal edema Respiratory Respiratory: Denies cough Gastrointestinal Gastrointestinal: Denies abdominal pain Musculoskeletal Musculoskeletal: Denies abnormal gait, Denies muscle cramps and Denies radiating pain into limb Integumentary/Breasts Skin/Breast: Denies skin ulcer and Denies wounds Neurologic Neurologic: Denies abnormal gait Psychiatric Psychiatric: Reports no additional psychiatric complaints Physical Exam Vital Signs: Vital Signs: Last Vital Signs Temp 98.6 F 07/06/22 07:30 Pulse 66 07/06/22 07:30 Resp 16 07/06/22 07:30 BP 176/74 H 07/06/22 07:30 Pulse Ox 94 07/06/22 07:30 O2 Del Method 07/06/22 07:30 O2 Flow Rate 22.0 07/03/22 19:42 BMI result Body Mass Index 25.8 Const: Other: Constitutional : Awake, interactive, not in distress Neck : Normal inspection, Supple Cardiovascular : RRR, no JVP, no lower extremity edema Respiratory : good bilateral air entry, no crackles, wheezes or rhonchi Gastrointestinal: soft, lax, Normal bowel sounds, Non tender Skin : Warm, Dry, Rt big toe tip dry and open with small amt of drainage Neurological : Alert & oriented to self and place, No focal deficit Objective Data Active Medications Acetaminophen (Acetaminophen 325 Mg Tablet) 650 mg PO Q6H PRN PRN Reason: Pain, Mild (Pain Scale 1-3) Last Admin: 07/05/22 20:16 Dose: 650 mg Documented By: BROOKE Amlodipine Besylate (Amlodipine Besylate 10 Mg Tablet) 10 mg PO BEDTIME [facility]; Protocol Last Admin: 07/05/22 20:33 Dose: 10 mg Documented By: BROOKE Aspirin (Aspirin Enteric Coated 81 Mg Tablet.) 81 mg PO DAILY [facility] Last Admin: 07/06/22 11:21 Dose: Not Given Documented By: COLLEEN Non-Admin Reason: Patient Refused Atorvastatin Calcium (Atorvastatin Calcium 80 Mg Tablet) 80 mg PO BEDTIME [facility] Last Admin: 07/05/22 20:12 Dose: 80 mg Documented By: BROOKE Empagliflozin (Empagliflozin 10 Mg Tablet) 10 mg PO DAILY [facility] Last Admin: 07/06/22 11:21 Dose: Not Given Documented By: COLLEEN Non-Admin Reason: Patient Refused Enoxaparin Sodium (Enoxaparin Sodium 40 Mg/0.4 Ml Syringe) 40 mg SUBCUT Q24H [facility] Last Admin: 07/05/22 17:44 Dose: 40 mg Documented By: DONALD Furosemide (Furosemide 40 Mg Tablet) 40 mg PO DAILY [facility]; Protocol Last Admin: 07/06/22 11:21 Dose: Not Given Documented By: COLLEEN Non-Admin Reason: Patient Refused Hydralazine HCl (Hydralazine Hcl 50 Mg Tablet) 50 mg PO BID [facility]; Protocol Last Admin: 07/06/22 11:19 Dose: Not Given Documented By: COLLEEN Non-Admin Reason: Patient Refused Vancomycin HCl 1,000 mg/ (Sodium Chloride) 270 mls @ 270 mls/hr IV Q24H [facility] Last Admin: 07/06/22 10:31 Dose: 270 mls/hr Documented By: COLLEEN Levofloxacin (Levaquin) 500 mg in 100 mls @ 100 mls/hr IV Q48H [facility] Insulin Glargine (Insulin Glargine,Hum.Rec.Anlog 100 Unit/Ml 10 Ml Vial) 10 unit SUBCUT BEDTIME [facility] Last Admin: 07/05/22 20:12 Dose: 10 unit Documented By: BROOKE Insulin Human Lispro (Insulin Lispro 100 Unit/Ml 3 Ml Vial) 0 unit SUBCUT QIDACHS [facility]; Protocol Last Admin: 07/06/22 11:35 Dose: Not Given Documented By: COLLEEN Non-Admin Reason: No Insulin Coverage Losartan Potassium (Losartan Potassium 50 Mg Tablet) 50 mg PO DAILY [facility]; Protocol Last Admin: 07/06/22 11:21 Dose: Not Given Documented By: COLLEEN Non-Admin Reason: Patient Refused Metoprolol Succinate (Metoprolol Succinate Er 50 Mg Tab.Er.24h) 50 mg PO DAILY [facility]; Protocol Last Admin: 07/06/22 11:21 Dose: Not Given Documented By: COLLEEN Non-Admin Reason: Patient Refused Morphine Sulfate (Morphine Sulfate 2 Mg/Ml Cartridge) 2 mg IVPUSH Q4H PRN; Protocol PRN Reason: Pain, Severe (Pain Scale 7-10) Omeprazole (Omeprazole 20 Mg Capsule.) 20 mg PO DAILY@0630 [facility] Last Admin: 07/06/22 05:28 Dose: 20 mg Documented By: BROOKE Ondansetron HCl (Ondansetron Hcl 4 Mg/2 Ml Vial) 4 mg IVPUSH Q8H PRN PRN Reason: Nausea and Vomiting Pharmacy Consult (Consult Rx Vancomycin Dosing) 1 each MISCELLANE DAILY PRN PRN Reason: Consult order Sodium Chloride (0.9 % Sodium Chloride Flush 3 Ml Syringe) 3 ml IVFLUSH QSHIFT [facility] Last Admin: 07/06/22 08:33 Dose: 3 ml Documented By: COLLEEN Vitamin D (Cholecalciferol (Vitamin D3) 25 Mcg Tablet) 25 mcg PO DAILY [facility] Last Admin: 07/06/22 11:21 Dose: Not Given Documented By: COLLEEN Non-Admin Reason: Patient Refused Labs 07/04/22 05:47 07/05/22 05:51 Labs: Laboratory Results - last 24 hr 07/05/22 07/05/22 07/05/22 11:41 16:19 19:29 POC Glucose 178 H 229 H 214 H 07/06/22 07/06/22 07:36 11:21 POC Glucose 151 H 139 H Microbiology Microbiology Results: Microbiology 07/03/22 10:07 Gram Stain - Final Toe Routine Culture - Preliminary Pseudomonas aeruginosa 07/03/22 10:21 Blood Culture - Preliminary Blood - Venous No growth after 48 hours. 07/03/22 10:07 Blood Culture - Preliminary Blood - Venous No growth after 48 hours. Assessment and Plan (1) Diabetic ulcer of toe: Status: Acute (2) Diabetic ulcer of right great toe: Status: Acute Assessment and Plan: An 81 years old male with PMH of COPD, CVA, HTN, diabetes, dementia, HLD among o thers who presented to the hospital with right toe nonhealing ulcer. 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 XR consistent with osteomyelitis wound Cx growing Pseudomonas pending sensitivity, GPC pending Broad-spectrum antibiotic of vancomycin and Levaquin Vascular studies (doppler) looked ok, no major obstruction or stenosis vascular surgery input appreciated, needs amputation of big toe by Friday ID input appreciated Follow vancomycin trough Type 2 diabetes SSI, POC Continue Lantus Diabetic diet Hypertension Continue amlodipine, hydralazine and losartan HLD Continue statin DVT PPX Lovenox The patient will likely need at least overnight hospital stay for evaluation and treatment of osteomyelitis pending surgical intervention Time Spent With Patient Time: Total time managing care of this patient today ____ minutes. Quality Stroke Does the patient have a stroke diagnosis?: No VTE Prior VTE?: No VTE Risk Level:: Medical - moderate - high VTE Device Contraindication: Treatment Not Indicated VTE Drug Contraindication: N/A - Med Ordered
[2022-07-06] MEDS: diphenhydrAMINE HCL 50 MG/ML VIAL 25 MG IVPUSH (12:33)
[2022-07-06 15:32] LABS: Glucose, Whole Blood 227 mg/dL (60-115)
[2022-07-06 15:33] VITALS: BP 148/65; PULSE 66; RESP 19; TEMP 36.2; O2SAT 97
[2022-07-06 15:44] LABS: Creatinine Clr Calc Pharmacy 25.9; Estimated Glomerular Filt Rate 33
[2022-07-06 19:20] VITALS: BP 108/52; PULSE 73; RESP 19; TEMP 36.3; O2SAT 96
[2022-07-06 19:20] LABS: Glucose, Whole Blood 204 mg/dL (60-115)
[2022-07-06] MEDS: hydrALAZINE HCl 50 MG TABLET PO (20:15)
[2022-07-06] MEDS: amLODIPine Besylate 10 MG TABLET PO (20:15)
[2022-07-06] MEDS: Insulin Glargine,Hum.rec.anlog 100 UNIT/ML 10 ML VIAL 10 UNIT SUBCUT (20:16)
[2022-07-06] MEDS: Atorvastatin Calcium 80 MG TABLET PO (20:16)
[2022-07-07 04:00] VITALS: BP 144/65; PULSE 75; RESP 18; TEMP 36.8; O2SAT 92
[2022-07-07 07:10] VITALS: BP 149/67; PULSE 76; RESP 16; TEMP 37.4; O2SAT 96
[2022-07-07 07:51] LABS: Glucose, Whole Blood 155 mg/dL (60-115)
[2022-07-07] MEDS: Aspirin Enteric Coated 81 MG TABLET.DR PO (08:03)
[2022-07-07] MEDS: 0.9 % Sodium Chloride Flush 3 ML SYRINGE IVFLUSH ×2 (08:03→21:35)
[2022-07-07] MEDS: Insulin Lispro 100 UNIT/ML 3 ML VIAL SUBCUT ×4 (08:03→21:28)
[2022-07-07] MEDS: Metoprolol Succinate ER 50 MG TAB.ER.24H PO (08:03)
[2022-07-07] MEDS: Losartan Potassium 50 MG TABLET PO (08:04)
[2022-07-07] MEDS: Cholecalciferol (Vitamin D3) 25 MCG TABLET PO (08:04)
[2022-07-07] MEDS: hydrALAZINE HCl 50 MG TABLET PO ×2 (08:04→21:26)
[2022-07-07] MEDS: Furosemide 40 MG TABLET PO (08:04)
[2022-07-07] MEDS: Empagliflozin 10 MG TABLET PO (08:04)
[2022-07-07] MEDS: Morphine Sulfate 2 MG/ML CARTRIDGE IVPUSH ×3 (08:40→21:27)
[2022-07-07 09:18] LABS: Vancomycin Random 16.1 mcg/mL (15-20)
[2022-07-07 09:20] LABS: Creatinine Clr Calc Pharmacy 31.1; Estimated Glomerular Filt Rate 40
[2022-07-07] MEDS: vancomycin HCL 1,000 MG in 0.9 % Sodium Chloride 250 ML 270 MG IV (10:48)
[2022-07-07 12:10] LABS: Glucose, Whole Blood 272 mg/dL (60-115)
--- NOTE | 2022-07-07 14:01 | HO.PM.IMPN ---
Subjective Subjective Date of Service: 07/07/22 Interval History: Seen and evaluated this morning isolated, refusing meds, not interested in talking No fever or chills Review of Systems No fever, chills or weakness No chest pain, palpitation No shortness of breath or coughing No abdominal pain, nausea or vomiting No urinary symptoms Right big toe wound Physical Exam Vital Signs: Vital Signs: Last Vital Signs Temp 99.3 F 07/07/22 07:10 Pulse 76 07/07/22 07:10 Resp 16 07/07/22 07:10 BP 149/67 H 07/07/22 07:10 Pulse Ox 96 07/07/22 07:10 O2 Del Method 07/07/22 07:10 O2 Flow Rate 22.0 07/03/22 19:42 BMI result Body Mass Index 25.8 Const: Other: Constitutional : Awake, interactive, not in distress Neck : Normal inspection, Supple Cardiovascular : RRR, no JVP, no lower extremity edema Respiratory : good bilateral air entry, no crackles, wheezes or rhonchi Gastrointestinal: soft, lax, Normal bowel sounds, Non tender Skin : Warm, Dry, Rt big toe tip dry and open with small amt of drainage Neurological : Alert & oriented to self and place, No focal deficit Objective Data Active Medications Acetaminophen (Acetaminophen 325 Mg Tablet) 650 mg PO Q6H PRN PRN Reason: Pain, Mild (Pain Scale 1-3) Last Admin: 07/05/22 20:16 Dose: 650 mg Documented By: BROOKE Amlodipine Besylate (Amlodipine Besylate 10 Mg Tablet) 10 mg PO BEDTIME [facility]; Protocol Last Admin: 07/06/22 20:15 Dose: 10 mg Documented By: PHILL Aspirin (Aspirin Enteric Coated 81 Mg Tablet.) 81 mg PO DAILY [facility] Last Admin: 07/07/22 08:03 Dose: 81 mg Documented By: COLLEEN Atorvastatin Calcium (Atorvastatin Calcium 80 Mg Tablet) 80 mg PO BEDTIME [facility] Last Admin: 07/06/22 20:16 Dose: 80 mg Documented By: PHILL Diphenhydramine HCl (Diphenhydramine Hcl 50 Mg/Ml Vial) 25 mg IVPUSH Q6H PRN PRN Reason: Allergic Reaction Last Admin: 07/06/22 12:33 Dose: 25 mg Documented By: COLLEEN Empagliflozin (Empagliflozin 10 Mg Tablet) 10 mg PO DAILY [facility] Last Admin: 07/07/22 08:04 Dose: 10 mg Documented By: COLLEEN Enoxaparin Sodium (Enoxaparin Sodium 40 Mg/0.4 Ml Syringe) 40 mg SUBCUT Q24H [facility] Last Admin: 07/06/22 16:56 Dose: Not Given Documented By: COLLEEN Non-Admin Reason: Patient Refused Furosemide (Furosemide 40 Mg Tablet) 40 mg PO DAILY [facility]; Protocol Last Admin: 07/07/22 08:04 Dose: 40 mg Documented By: COLLEEN Hydralazine HCl (Hydralazine Hcl 50 Mg Tablet) 50 mg PO BID [facility]; Protocol Last Admin: 07/07/22 08:04 Dose: 50 mg Documented By: COLLEEN Vancomycin HCl 1,000 mg/ (Sodium Chloride) 270 mls @ 270 mls/hr IV Q24H [facility] Last Infusion: 07/07/22 12:19 Dose: 0 mls/hr Documented By: COLLEEN Levofloxacin (Levaquin) 500 mg in 100 mls @ 100 mls/hr IV Q48H [facility] Insulin Glargine (Insulin Glargine,Hum.Rec.Anlog 100 Unit/Ml 10 Ml Vial) 10 unit SUBCUT BEDTIME [facility] Last Admin: 07/06/22 20:16 Dose: 10 unit Documented By: PHILL Insulin Human Lispro (Insulin Lispro 100 Unit/Ml 3 Ml Vial) 0 unit SUBCUT QIDACHS [facility]; Protocol Last Admin: 07/07/22 12:14 Dose: 6 unit Documented By: COLLEEN Losartan Potassium (Losartan Potassium 50 Mg Tablet) 50 mg PO DAILY [facility]; Protocol Last Admin: 07/07/22 08:04 Dose: 50 mg Documented By: COLLEEN Metoprolol Succinate (Metoprolol Succinate Er 50 Mg Tab.Er.24h) 50 mg PO DAILY [facility]; Protocol Last Admin: 07/07/22 08:03 Dose: 50 mg Documented By: COLLEEN Morphine Sulfate (Morphine Sulfate 2 Mg/Ml Cartridge) 2 mg IVPUSH Q4H PRN; Protocol PRN Reason: Pain, Severe (Pain Scale 7-10) Last Admin: 07/07/22 08:40 Dose: 2 mg Documented By: COLLEEN Omeprazole (Omeprazole 20 Mg Capsule.Dr) 20 mg PO DAILY@0630 [facility] Last Admin: 07/07/22 05:14 Dose: Not Given Documented By: PHILL Non-Admin Reason: Patient Refused Ondansetron HCl (Ondansetron Hcl 4 Mg/2 Ml Vial) 4 mg IVPUSH Q8H PRN PRN Reason: Nausea and Vomiting Pharmacy Consult (Consult Rx Vancomycin Dosing) 1 each MISCELLANE DAILY PRN PRN Reason: Consult order Sodium Chloride (0.9 % Sodium Chloride Flush 3 Ml Syringe) 3 ml IVFLUSH QSHIFT [facility] Last Admin: 07/07/22 08:03 Dose: 3 ml Documented By: COLLEEN Vitamin D (Cholecalciferol (Vitamin D3) 25 Mcg Tablet) 25 mcg PO DAILY [facility] Last Admin: 07/07/22 08:04 Dose: 25 mcg Documented By: COLLEEN Labs 07/04/22 05:47 07/07/22 08:32 Labs: Laboratory Results - last 24 hr 07/06/22 07/06/22 07/06/22 15:11 15:23 19:12 Estim Creat Clear Calc 25.9 Estimated GFR 33 POC Glucose 227 H 204 H Random Vancomycin 07/07/22 07/07/22 07/07/22 07:14 08:32 08:32 Estim Creat Clear Calc 31.1 Estimated GFR 40 POC Glucose 155 H Random Vancomycin 16.1 07/07/22 10:59 Estim Creat Clear Calc Estimated GFR POC Glucose 272 H Random Vancomycin Microbiology Microbiology Results: Microbiology 07/03/22 10:07 Gram Stain - Final Toe Routine Culture - Final Pseudomonas aeruginosa Assessment and Plan (1) Diabetic ulcer of right great toe: Status: Acute Assessment and Plan: An 81 years old male with PMH of COPD, CVA, HTN, diabetes, dementia, HLD among others who presented to the hospital with right toe nonhealing ulcer. 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 XR consistent with osteomyelitis wound Cx growing Pseudomonas pending sensitivity, GPC pending Broad-spectrum antibiotic of vancomycin and Levaquin Vascular studies (doppler) looked ok, no major obstruction or stenosis vascular surgery input appreciated, needs amputation of big toe tomorrow ID input appreciated Follow vancomycin trough Type 2 diabetes SSI, POC Continue Lantus Diabetic diet Hypertension Continue amlodipine, hydralazine and losartan HLD Continue statin DVT PPX Lovenox The patient will likely need at least overnight hospital stay for evaluation and treatment of osteomyelitis pending surgical intervention Time Spent With Patient Time: Total time managing care of this patient today ____ minutes. Quality Stroke Does the patient have a stroke diagnosis?: No VTE Prior VTE?: No VTE Risk Level:: Medical - moderate - high VTE Device Contraindication: Treatment Not Indicated VTE Drug Contraindication: N/A - Med Ordered
[2022-07-07] MEDS: levoFLOXacin/D5W 500 MG/100 ML PIGGYBACK 100 MG IV (15:20)
[2022-07-07 15:45] VITALS: BP 125/60; PULSE 68; RESP 17; TEMP 36.3; O2SAT 95
[2022-07-07 16:21] LABS: Glucose, Whole Blood 224 mg/dL (60-115)
[2022-07-07 20:00] VITALS: BP 136/60; PULSE 77; RESP 18; TEMP 36.6; O2SAT 98
[2022-07-07 20:45] LABS: Glucose, Whole Blood 196 mg/dL (60-115)
[2022-07-07] MEDS: Atorvastatin Calcium 80 MG TABLET PO (21:26)
[2022-07-07] MEDS: amLODIPine Besylate 10 MG TABLET PO (21:26)
[2022-07-07] MEDS: Insulin Glargine,Hum.rec.anlog 100 UNIT/ML 10 ML VIAL 10 UNIT SUBCUT (21:28)
[2022-07-08] VITALS (11 sets, daily range): BP systolic 102–161; BP diastolic 34–66; PULSE 70–90; RESP 16–20; TEMP 36.1–37.9; O2SAT 94–100
[2022-07-08] MEDS: Omeprazole 20 MG CAPSULE.DR PO (05:40)
[2022-07-08] MEDS: Morphine Sulfate 2 MG/ML CARTRIDGE IVPUSH ×3 (05:57→21:26)
[2022-07-08 06:49] LABS: Creatinine Clr Calc Pharmacy 36.7; Estimated Glomerular Filt Rate 49
[2022-07-08 06:51] LABS: Anion Gap 19 (12-20); Blood Urea Nitrogen 36 mg/dL (9-16); Calcium 9.5 mg/dL (8.4-10.2); Carbon Dioxide 22 mmol/L (22-29); Chloride 102 mmol/L (96-108); Creatinine Clr Calc Pharmacy 37.2; Estimated Glomerular Filt Rate 49; Glucose Random 145 mg/dL (60-115); Potassium 4.3 mmol/L (3.3-5.1); Sodium 139 mmol/L (135-145)
[2022-07-08 07:50] LABS: Glucose, Whole Blood 168 mg/dL (60-115)
[2022-07-08] MEDS: 0.9 % Sodium Chloride Flush 3 ML SYRINGE IVFLUSH ×2 (08:53→20:48)
[2022-07-08] MEDS: Furosemide 40 MG TABLET PO (08:54)
[2022-07-08] MEDS: Cholecalciferol (Vitamin D3) 25 MCG TABLET PO (08:54)
[2022-07-08] MEDS: Losartan Potassium 50 MG TABLET PO (08:54)
[2022-07-08] MEDS: Empagliflozin 10 MG TABLET PO (08:54)
[2022-07-08] MEDS: Metoprolol Succinate ER 50 MG TAB.ER.24H PO (08:54)
[2022-07-08 11:37] LABS: Glucose, Whole Blood 169 mg/dL (60-115)
--- NOTE | 2022-07-08 13:27 | P.PNIM_ITS ---
Subjective Subjective Date of Service: 07/08/22 Interval History: Seen and evaluated this morning Feels better, ready for surgery No fever or chills Review of Systems Review of Systems: Yes all other systems are reviewed and are negative Physical Exam Vital Signs: Vital Signs: Last Vital Signs Temp 98.2 F 07/08/22 07:41 Pulse 80 07/08/22 07:41 Resp 18 07/08/22 07:41 BP 137/66 07/08/22 07:41 Pulse Ox 94 07/08/22 07:41 O2 Del Method 07/08/22 07:41 O2 Flow Rate 22.0 07/03/22 19:42 BMI result Body Mass Index 25.8 Const: Other: Constitutional : Awake, interactive, not in distress Neck : Normal inspection, Supple Cardiovascular : RRR, no JVP, no lower extremity edema Respiratory : good bilateral air entry, no crackles, wheezes or rhonchi Gastrointestinal: soft, lax, Normal bowel sounds, Non tender Skin : Warm, Dry, Rt big toe tip dry and open with small amt of drainage Neurological : Alert & oriented to self and place, No focal deficit Objective Data Active Medications Acetaminophen (Acetaminophen 325 Mg Tablet) 650 mg PO Q6H PRN PRN Reason: Pain, Mild (Pain Scale 1-3) Last Admin: 07/05/22 20:16 Dose: 650 mg Documented By: BROOKE Amlodipine Besylate (Amlodipine Besylate 10 Mg Tablet) 10 mg PO BEDTIME [facility]; Protocol Last Admin: 07/07/22 21:26 Dose: 10 mg Documented By: FAUSTINA Aspirin (Aspirin Enteric Coated 81 Mg Tablet.) 81 mg PO DAILY [facility] Last Admin: 07/08/22 08:55 Dose: Not Given Documented By: LOVELY Non-Admin Reason: surgery Atorvastatin Calcium (Atorvastatin Calcium 80 Mg Tablet) 80 mg PO BEDTIME [facility] Last Admin: 07/07/22 21:26 Dose: 80 mg Documented By: FAUSTINA Diphenhydramine HCl (Diphenhydramine Hcl 50 Mg/Ml Vial) 25 mg IVPUSH Q6H PRN PRN Reason: Allergic Reaction Last Admin: 07/06/22 12:33 Dose: 25 mg Documented By: COLLEEN Empagliflozin (Empagliflozin 10 Mg Tablet) 10 mg PO DAILY [facility] Last Admin: 01/30/23 08:54 Dose: 10 mg Documented By: LOVELY Enoxaparin Sodium (Enoxaparin Sodium 40 Mg/0.4 Ml Syringe) 40 mg SUBCUT Q24H [facility] Last Admin: 07/06/22 16:56 Dose: Not Given Documented By: COLLEEN Non-Admin Reason: Patient Refused Furosemide (Furosemide 40 Mg Tablet) 40 mg PO DAILY [facility]; Protocol Last Admin: 07/08/22 08:54 Dose: 40 mg Documented By: LOVELY Hydralazine HCl (Hydralazine Hcl 50 Mg Tablet) 50 mg PO BID [facility]; Protocol Last Admin: 07/08/22 08:59 Dose: Not Given Documented By: LOVELY Non-Admin Reason: surgery Levofloxacin (Levaquin) 500 mg in 100 mls @ 100 mls/hr IV Q48H [facility] Last Infusion: 07/07/22 16:31 Dose: 0 mls/hr Documented By: COLLEEN Insulin Glargine (Insulin Glargine,Hum.Rec.Anlog 100 Unit/Ml 10 Ml Vial) 10 unit SUBCUT BEDTIME [facility] Last Admin: 07/07/22 21:28 Dose: 10 unit Documented By: FAUSTINA Insulin Human Lispro (Insulin Lispro 100 Unit/Ml 3 Ml Vial) 0 unit SUBCUT QIDACHS [facility]; Protocol Last Admin: 07/08/22 11:43 Dose: Not Given Documented By: LOVELY Non-Admin Reason: NPO Losartan Potassium (Losartan Potassium 50 Mg Tablet) 50 mg PO DAILY [facility]; Protocol Last Admin: 07/08/22 08:54 Dose: 50 mg Documented By: LOVELY Metoprolol Succinate (Metoprolol Succinate Er 50 Mg Tab.Er.24h) 50 mg PO DAILY [facility]; Protocol Last Admin: 07/08/22 08:54 Dose: 50 mg Documented By: LOVELY Morphine Sulfate (Morphine Sulfate 2 Mg/Ml Cartridge) 2 mg IVPUSH Q4H PRN; Prot ocol PRN Reason: Pain, Severe (Pain Scale 7-10) Last Admin: 07/08/22 05:57 Dose: 2 mg Documented By: FAUSTINA Omeprazole (Omeprazole 20 Mg Capsule.Dr) 20 mg PO DAILY@0630 [facility] Last Admin: 07/08/22 05:40 Dose: 20 mg Documented By: FAUSTINA Ondansetron HCl (Ondansetron Hcl 4 Mg/2 Ml Vial) 4 mg IVPUSH Q8H PRN PRN Reason: Nausea and Vomiting Sodium Chloride (0.9 % Sodium Chloride Flush 3 Ml Syringe) 3 ml IVFLUSH QSHIFT [facility] Last Admin: 07/08/22 08:53 Dose: 3 ml Documented By: LOVELY Vitamin D (Cholecalciferol (Vitamin D3) 25 Mcg Tablet) 25 mcg PO DAILY [facility] Last Admin: 07/08/22 08:54 Dose: 25 mcg Documented By: LOVELY Labs 07/04/22 05:47 07/08/22 06:10 Labs: Laboratory Results - last 24 hr 07/07/22 07/07/22 07/08/22 15:48 20:04 06:10 Anion Gap Estim Creat Clear Calc 36.7 Estimated GFR 49 POC Glucose 224 H 196 H Random Glucose Calcium 07/08/22 07/08/22 07/08/22 06:10 07:42 11:29 Anion Gap 19 Estim Creat Clear Calc 37.2 Estimated GFR 49 POC Glucose 168 H 169 H Random Glucose 145 H Calcium 9.5 Microbiology Microbiology Results: Microbiology 07/03/22 10:21 Blood Culture - Final Blood - Venous No growth after 5 days. 07/03/22 10:07 Blood Culture - Final Blood - Venous No growth after 5 days. Assessment and Plan (1) Diabetic ulcer of right great toe: Status: Acute Assessment and Plan: An 81 years old male with PMH of COPD, CVA, HTN, diabetes, dementia, HLD among others who presented to the hospital with right toe nonhealing ulcer. 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 XR consistent with osteomyelitis wound Cx growing Pseudomonas Discontinue vancomycin Continue Levaquin Vascular studies (doppler) looked ok, no major obstruction or stenosis vascular surgery input appreciated, needs amputation of big toe ID input appreciated, Levaquin for 2 weeks Plan for surgery today Type 2 diabetes SSI, POC Continue Lantus Diabetic diet Hypertension Continue amlodipine, hydralazine and losartan HLD Continue statin DVT PPX Lovenox The patient will likely need at least overnight hospital stay for evaluation and treatment of osteomyelitis pending surgical intervention (2) PAD (peripheral artery disease): Status: Acute (3) Diabetic ulcer of toe: Status: Acute Time Spent With Patient Time: Total time managing care of this patient today ____ minutes. Quality Stroke Does the patient have a stroke diagnosis?: No VTE Prior VTE?: No VTE Risk Level:: Medical - moderate - high VTE Device Contraindication: Treatment Not Indicated VTE Drug Contraindication: N/A - Med Ordered
--- NOTE | 2022-07-08 13:41 | P.CDIC_ITS ---
CDI Concurrent Query Documentation Clarification: PHYSICIAN'S DOCUMENTATION REQUEST Date of Query: 07/08/22 1344 Patient Name: Jerome Davis Admit Date: 07/03/22 Dear Doctor, A review of the medical record indicates additional documentation may be indicated. Please review below and update the documentation accordingly. Clinical Indicators: Risk Factors/Clinical Indicators/Treatments per MD progress note 07/08/22: Rt big toe tip dry and open with small amt of drainage Diabetic ulcer right great toe OR planned Based on the above, could you please provide, in the Progress Notes, further information regarding the ulcer/wound: * For a non-pressure ulcer, please indicate the depth/severity: * Limited to the breakdown of skin * With fat layer exposed * With necrosis of muscle * With necrosis of bone * Other * Unable to determine *Source: National Pressure Ulcer Advisory Panel (NPUAP) Use of terms such as suspected, likely, concern for, or probable (associated with a specific diagnosis that is being evaluated, monitored, or treated as if it exists) are acceptable and can be coded in the inpatient setting, when documented at the time of discharge. Thank you, Aimee Anaya RN Extension: [phone] Please use your independent medical judgment in providing your response. THIS QUERY IS PART OF THE PERMANENT MEDICAL RECORD Provider Response: Other Other Diagnosis: non-healing Persistent Right big toe osteomyelitis with eschar
--- NOTE | 2022-07-08 14:02 | HO.ANESPROP2 ---
HPI - Anesthesia Eval Consult details Narrative: 81 yr old for left toe amp diabetic ulcer PMFSH Active Problems Active Problems: All Active Problems (Updated 07/04/22 @ 15:45 by Elmer Tee MD) PAD (peripheral artery disease) (Acute) Diabetic ulcer of toe (Acute) Osteomyelitis (Acute) Diabetic ulcer of right great toe (Acute) Cellulitis of left leg (Acute) Pneumonia (Acute) Acute on chronic heart failure with preserved ejection fraction (Acute) Volume overload (Acute) Lung nodules (Acute) COPD (chronic obstructive pulmonary disease) (Acute) Acute CVA (cerebrovascular accident) (Acute ~07/2020) Past Medical History Medical History Adenocarcinoma of right lung (~2020) COPD (chronic obstructive pulmonary disease) Dementia Diabetes Former smoker, stopped smoking in distant past History of CVA (cerebrovascular accident) (~07/2020) HTN (hypertension) Hyperlipidemia Pneumonia Family History Family history of problems with anesthesia: No Surgical History Surgical History History of lung biopsy (~10/2020) History of Problems with Anesthesia: Unobtainable Social History Social History Household Members: Family Household Members Other:: step-son spends the night frequently Housing: Apartment Do you presently have visiting nurse or other home services: No Alcohol intake: never Patient Tobacco Use Status: Former Tobacco user Advance Directives Date on File: 05/24/21 service: No Current occupational status: retired Meds Allergies Allergy/AdvReac Type Severity Reaction Status Date / Time Penicillins [PENICILLINS] Allergy Intermediate RASH Verified 07/08/22 13:23 Active Medications: Current Medications Acetaminophen (Acetaminophen 325 Mg Tablet) 650 mg PO Q6H PRN PRN Reason: Pain, Mild (Pain Scale 1-3) Last Admin: 07/05/22 20:16 Dose: 650 mg Amlodipine Besylate (Amlodipine Besylate 10 Mg Tablet) 10 mg PO BEDTIME EBER; Protocol Last Admin: 07/07/22 21:26 Dose: 10 mg Aspirin (Aspirin Enteric Coated 81 Mg Tablet.Dr) 81 mg PO DAILY EBER Last Admin: 07/08/22 08:55 Dose: Not Given Atorvastatin Calcium (Atorvastatin Calcium 80 Mg Tablet) 80 mg PO BEDTIME EBER Last Admin: 07/07/22 21:26 Dose: 80 mg Diphenhydramine HCl (Diphenhydramine Hcl 50 Mg/Ml Vial) 25 mg IVPUSH Q6H PRN PRN Reason: Allergic Reaction Last Admin: 07/06/22 12:33 Dose: 25 mg Empagliflozin (Empagliflozin 10 Mg Tablet) 10 mg PO DAILY [facility] Last Admin: 07/08/22 08:54 Dose: 10 mg Enoxaparin Sodium (Enoxaparin Sodium 40 Mg/0.4 Ml Syringe) 40 mg SUBCUT Q24H EBER Last Admin: 07/06/22 16:56 Dose: Not Given Furosemide (Furosemide 40 Mg Tablet) 40 mg PO DAILY [facility]; Protocol Last Admin: 07/08/22 08:54 Dose: 40 mg Hydralazine HCl (Hydralazine Hcl 50 Mg Tablet) 50 mg PO BID EBER; Protocol Last Admin: 07/08/22 08:59 Dose: Not Given Levofloxacin (Levaquin) 500 mg in 100 mls @ 100 mls/hr IV Q48H [facility] Last Infusion: 07/07/22 16:31 Dose: Infused Insulin Glargine (Insulin Glargine,Hum.Rec.Anlog 100 Unit/Ml 10 Ml Vial) 10 unit SUBCUT BEDTIME [facility] Last Admin: 07/07/22 21:28 Dose: 10 unit Insulin Human Lispro (Insulin Lispro 100 Unit/Ml 3 Ml Vial) 0 unit SUBCUT QIDACHS EBER; Protocol Last Admin: 07/08/22 11:43 Dose: Not Given Losartan Potassium (Losartan Potassium 50 Mg Tablet) 50 mg PO DAILY [facility]; Protocol Last Admin: 07/08/22 08:54 Dose: 50 mg Metoprolol Succinate (Metoprolol Succinate Er 50 Mg Tab.Er.24h) 50 mg PO DAILY [facility]; Protocol Last Admin: 07/08/22 08:54 Dose: 50 mg Morphine Sulfate (Morphine Sulfate 2 Mg/Ml Cartridge) 2 mg IVPUSH Q4H PRN; Protocol PRN Reason: Pain, Severe (Pain Scale 7-10) Last Admin: 07/08/22 05:57 Dose: 2 mg Omeprazole (Omeprazole 20 Mg Capsule.Dr) 20 mg PO DAILY@0630 [facility] Last Admin: 07/08/22 05:40 Dose: 20 mg Ondansetron HCl (Ondansetron Hcl 4 Mg/2 Ml Vial) 4 mg IVPUSH Q8H PRN PRN Reason: Nausea and Vomiting Sodium Chloride (0.9 % Sodium Chloride Flush 3 Ml Syringe) 3 ml IVFLUSH QSHIFT [facility] Last Admin: 07/08/22 08:53 Dose: 3 ml Vitamin D (Cholecalciferol (Vitamin D3) 25 Mcg Tablet) 25 mcg PO DAILY [facility] Last Admin: 07/08/22 08:54 Dose: 25 mcg Home Medications Medication Instructions Recorded Confirmed Last Taken Type amlodipine 10 mg tablet 10 mg PO BEDTIME 03/07/21 07/03/22 05/16/21 History aspirin 81 mg tablet,delayed 81 mg PO DAILY 03/07/21 07/03/22 05/16/21 History release atorvastatin 80 mg tablet 80 mg PO BEDTIME 03/07/21 07/03/22 05/16/21 History omeprazole 20 mg capsule,delayed 20 mg PO DAILY@0630 03/07/21 07/03/22 05/16/21 History release hydralazine 50 mg tablet 50 mg PO BID 07/07/21 07/03/22 Unknown History metoprolol succinate 50 mg 50 mg PO DAILY 07/07/21 07/03/22 Unknown History tablet,extended release 24 hr cholecalciferol (vitamin D3) 25 1 tab PO DAILY 01/17/22 07/03/22 Unknown History mcg (1,000 unit) tablet insulin glargine 100 unit/mL 15 unit subcut BEDTIME 01/17/22 07/03/22 Unknown History subcutaneous solution (Lantus U-100 Insulin) empagliflozin 10 mg tablet 1 tab PO DAILY 01/31/22 07/03/22 Unknown History (Jardiance) losartan 50 mg tablet 50 mg PO DAILY 01/31/22 07/03/22 Unknown History furosemide 40 mg tablet 1 tab QAM 07/03/22 07/03/22 Unknown History Exam Exam Date and Time: July 08, 2022 1402 Height,Weight and Vital Signs: Height 5 ft 6 in Weight 72.575 kg Last Vital Signs Temp 98.6 F 07/08/22 13:32 Pulse 79 07/08/22 13:32 Resp 18 07/08/22 13:32 BP 142/63 H 07/08/22 13:32 Pulse Ox 96 07/08/22 13:32 O2 Del Method 07/08/22 13:32 O2 Flow Rate 22.0 07/03/22 19:42 Pertinent Lab Results Pertinent Lab Results: Laboratory Tests 07/03/22 07/03/22 07/03/22 10:07 10:07 10:07 WBC 10.0 RBC 3.70 L Hgb 9.5 L Hct 30.9 L MCV 83.5 MCH 25.7 L MCHC 30.7 L RDW 15.5 Plt Count 336 MPV 9.9 Immature Gran % (Auto) 0.4 Neut % (Auto) 57.6 Lymph % (Auto) 28.6 [place] % (Auto) 9.0 Eos % (Auto) 3.5 Baso % (Auto) 0.9 Lymph # (Auto) 2.9 [place] # (Auto) 0.9 Eos # (Auto) 0.4 Baso # (Auto) 0.1 Abs Immat Gran (auto) 0.04 H Absolute Neuts (auto) 5.8 Absolute Nucleated RBC 0.000 Nucleated RBC % (auto) 0.0 ESR 88 H PT INR Sodium Potassium Chloride Carbon Dioxide Anion Gap BUN Creatinine Estim Creat Clear Calc Estimated GFR POC Glucose Random Glucose Lactic Acid Calcium Magnesium Total Bilirubin Direct Bilirubin AST ALT Alkaline Phosphatase C-Reactive Protein B-Natriuretic Peptide Total Protein Albumin Lipase Urine Color Urine Appearance Urine pH Ur Specific Marks Urine Protein Urine Glucose (UA) Urine Ketones Urine Blood Urine Nitrite Ur Leukocyte Esterase Urine RBC Urine WBC Ur Squamous Epith Cells Urine Bacteria Hyaline Casts Random Vancomycin COVID-19 (SHANA) Negative COVID-19 Clin Com See Note 07/03/22 07/03/22 07/03/22 10:07 10:07 10:07 WBC RBC Hgb Hct MCV MCH MCHC RDW Plt Count MPV Immature Gran % (Auto) Neut % (Auto) Lymph % (Auto) [place] % (Auto) Eos % (Auto) Baso % (Auto) Lymph # (Auto) [place] # (Auto) Eos # (Auto) Baso # (Auto) Abs Immat Gran (auto) Absolute Neuts (auto) Absolute Nucleated RBC Nucleated RBC % (auto) ESR PT 11.4 INR 1.0 Sodium 145 Potassium 3.7 Chloride 102 Carbon Dioxide 31 H Anion Gap 16 BUN 28 H Creatinine 1.43 H Estim Creat Clear Calc 35.9 Estimated GFR 47 POC Glucose Random Glucose 131 H Lactic Acid 0.9 Calcium 9.7 Magnesium 2.2 Total Bilirubin 0.5 Direct Bilirubin 0.2 AST 15 ALT 10 Alkaline Phosphatase 115 C-Reactive Protein 0.58 H B-Natriuretic Peptide Total Protein 7.2 Albumin 3.9 Lipase 21 Urine Color Urine Appearance Urine pH Ur Specific Marks Urine Protein Urine Glucose (UA) Urine Ketones Urine Blood Urine Nitrite Ur Leukocyte Esterase Urine RBC Urine WBC Ur Squamous Epith Cells Urine Bacteria Hyaline Casts Random Vancomycin COVID-19 (SHANA) COVID-19 Clin Com 07/03/22 07/03/22 07/03/22 10:07 11:15 17:55 WBC RBC Hgb Hct MCV MCH MCHC RDW Plt Count MPV Immature Gran % (Auto) Neut % (Auto) Lymph % (Auto) [place] % (Auto) Eos % (Auto) Baso % (Auto) Lymph # (Auto) [place] # (Auto) Eos # (Auto) Baso # (Auto) Abs Immat Gran (auto) Absolute Neuts (auto) Absolute Nucleated RBC Nucleated RBC % (auto) ESR PT INR Sodium Potassium Chloride Carbon Dioxide Anion Gap BUN Creatinine Estim Creat Clear Calc Estimated GFR POC Glucose 164 H Random Glucose Lactic Acid Calcium Magnesium Total Bilirubin Direct Bilirubin AST ALT Alkaline Phosphatase C-Reactive Protein B-Natriuretic Peptide 492 H Total Protein Albumin Lipase Urine Color Yellow Urine Appearance Clear Urine pH 7.5 Ur Specific Marks 1.015 Urine Protein 30 (1+) H Urine Glucose (UA) >=1000 H Urine Ketones Negative Urine Blood Negative Urine Nitrite Negative Ur Leukocyte Esterase Negative Urine RBC 0-2 Urine WBC 0-5 Ur Squamous Epith Cells 0-2 Urine Bacteria None Seen Hyaline Casts 0-2 Random Vancomycin COVID-19 (SHANA) COVID-19 Clin Com 07/03/22 07/04/22 07/04/22 20:14 05:47 05:47 WBC 9.5 RBC 3.47 L Hgb 8.9 L Hct 28.6 L MCV 82.4 MCH 25.6 L MCHC 31.1 RDW 15.6 Plt Count 328 MPV 10.6 Immature Gran % (Auto) 0.7 H Neut % (Auto) 53.9 Lymph % (Auto) 33.9 [place] % (Auto) 7.9 Eos % (Auto) 3.1 Baso % (Auto) 0.5 Lymph # (Auto) 3.2 [place] # (Auto) 0.8 Eos # (Auto) 0.3 Baso # (Auto) 0.1 Abs Immat Gran (auto) 0.07 H Absolute Neuts (auto) 5.1 Absolute Nucleated RBC 0.000 Nucleated RBC % (auto) 0.0 ESR PT INR Sodium 141 Potassium 3.5 Chloride 103 Carbon Dioxide 28 Anion Gap 14 BUN 22 H Creatinine 1.13 Estim Creat Clear Calc 45.4 Estimated GFR > 60 POC Glucose 186 H Random Glucose 53 L* Lactic Acid Calcium 9.1 D Magnesium Total Bilirubin Direct Bilirubin AST ALT Alkaline Phosphatase C-Reactive Protein B-Natriuretic Peptide Total Protein Albumin Lipase Urine Color Urine Appearance Urine pH Ur Specific Marks Urine Protein Urine Glucose (UA) Urine Ketones Urine Blood Urine Nitrite Ur Leukocyte Esterase Urine RBC Urine WBC Ur Squamous Epith Cells Urine Bacteria Hyaline Casts Random Vancomycin COVID-19 (SHANA) COVID-19 [facility] 07/04/22 07/04/22 07/04/22 07:10 07:35 08:08 WBC RBC Hgb Hct MCV MCH MCHC RDW Plt Count MPV Immature Gran % (Auto) Neut % (Auto) Lymph % (Auto) [place] % (Auto) Eos % (Auto) Baso % (Auto) Lymph # (Auto) [place] # (Auto) Eos # (Auto) Baso # (Auto) Abs Immat Gran (auto) Absolute Neuts (auto) Absolute Nucleated RBC Nucleated RBC % (auto) ESR PT INR Sodium Potassium Chloride Carbon Dioxide Anion Gap BUN Creatinine Estim Creat Clear Calc Estimated GFR POC Glucose 55 L* 62 88 Random Glucose Lactic Acid Calcium Magnesium Total Bilirubin Direct Bilirubin AST ALT Alkaline Phosphatase C-Reactive Protein B-Natriuretic Peptide Total Protein Albumin Lipase Urine Color Urine Appearance Urine pH Ur Specific Marks Urine Protein Urine Glucose (UA) Urine Ketones Urine Blood Urine Nitrite Ur Leukocyte Esterase Urine RBC Urine WBC Ur Squamous Epith Cells Urine Bacteria Hyaline Casts Random Vancomycin COVID-19 (SHANA) COVID-19 [facility] 07/04/22 07/04/22 07/04/22 11:22 16:32 20:24 WBC RBC Hgb Hct MCV MCH MCHC RDW Plt Count MPV Immature Gran % (Auto) Neut % (Auto) Lymph % (Auto) [place] % (Auto) Eos % (Auto) Baso % (Auto) Lymph # (Auto) [place] # (Auto) Eos # (Auto) Baso # (Auto) Abs Immat Gran (auto) Absolute Neuts (auto) Absolute Nucleated RBC Nucleated RBC % (auto) ESR PT INR Sodium Potassium Chloride Carbon Dioxide Anion Gap BUN Creatinine Estim Creat Clear Calc Estimated GFR POC Glucose 152 H 142 H 171 H Random Glucose Lactic Acid Calcium Magnesium Total Bilirubin Direct Bilirubin AST ALT Alkaline Phosphatase C-Reactive Protein B-Natriuretic Peptide Total Protein Albumin Lipase Urine Color Urine Appearance Urine pH Ur Specific Marks Urine Protein Urine Glucose (UA) Urine Ketones Urine Blood Urine Nitrite Ur Leukocyte Esterase Urine RBC Urine WBC Ur Squamous Epith Cells Urine Bacteria Hyaline Casts Random Vancomycin COVID-19 (SHANA) COVID-19 Clin Com 07/05/22 07/05/22 07/05/22 05:51 07:01 08:52 WBC RBC Hgb Hct MCV MCH MCHC RDW Plt Count MPV Immature Gran % (Auto) Neut % (Auto) Lymph % (Auto) [place] % (Auto) Eos % (Auto) Baso % (Auto) Lymph # (Auto) [place] # (Auto) Eos # (Auto) Baso # (Auto) Abs Immat Gran (auto) Absolute Neuts (auto) Absolute Nucleated RBC Nucleated RBC % (auto) ESR PT INR Sodium 139 Potassium 4.0 Chloride 101 Carbon Dioxide 28 Anion Gap 14 BUN 25 H Creatinine 1.44 H Estim Creat Clear Calc 35.6 Estimated GFR 47 POC Glucose 99 Random Glucose 97 Lactic Acid Calcium 9.4 Magnesium Total Bilirubin Direct Bilirubin AST ALT Alkaline Phosphatase C-Reactive Protein B-Natriuretic Peptide Total Protein Albumin Lipase Urine Color Urine Appearance Urine pH Ur Specific Marks Urine Protein Urine Glucose (UA) Urine Ketones Urine Blood Urine Nitrite Ur Leukocyte Esterase Urine RBC Urine WBC Ur Squamous Epith Cells Urine Bacteria Hyaline Casts Random Vancomycin 13.0 L COVID-19 (SHANA) COVID-19 Clin Com 07/05/22 07/05/22 07/05/22 11:41 16:19 19:29 WBC RBC Hgb Hct MCV MCH MCHC RDW Plt Count MPV Immature Gran % (Auto) Neut % (Auto) Lymph % (Auto) [place] % (Auto) Eos % (Auto) Baso % (Auto) Lymph # (Auto) [place] # (Auto) Eos # (Auto) Baso # (Auto) Abs Immat Gran (auto) Absolute Neuts (auto) Absolute Nucleated RBC Nucleated RBC % (auto) ESR PT INR Sodium Potassium Chloride Carbon Dioxide Anion Gap BUN Creatinine Estim Creat Clear Calc Estimated GFR POC Glucose 178 H 229 H 214 H Random Glucose Lactic Acid Calcium Magnesium Total Bilirubin Direct Bilirubin AST ALT Alkaline Phosphatase C-Reactive Protein B-Natriuretic Peptide Total Protein Albumin Lipase Urine Color Urine Appearance Urine pH Ur Specific Marks Urine Protein Urine Glucose (UA) Urine Ketones Urine Blood Urine Nitrite Ur Leukocyte Esterase Urine RBC Urine WBC Ur Squamous Epith Cells Urine Bacteria Hyaline Casts Random Vancomycin COVID-19 (SHANA) COVID-19 Clin Com 07/06/22 07/06/22 07/06/22 07:36 11:21 15:11 WBC RBC Hgb Hct MCV MCH MCHC RDW Plt Count MPV Immature Gran % (Auto) Neut % (Auto) Lymph % (Auto) [place] % (Auto) Eos % (Auto) Baso % (Auto) Lymph # (Auto) [place] # (Auto) Eos # (Auto) Baso # (Auto) Abs Immat Gran (auto) Absolute Neuts (auto) Absolute Nucleated RBC Nucleated RBC % (auto) ESR PT INR Sodium Potassium Chloride Carbon Dioxide Anion Gap BUN Creatinine 1.98 H Estim Creat Clear Calc 25.9 Estimated GFR 33 POC Glucose 151 H 139 H Random Glucose Lactic Acid Calcium Magnesium Total Bilirubin Direct Bilirubin AST ALT Alkaline Phosphatase C-Reactive Protein B-Natriuretic Peptide Total Protein Albumin Lipase Urine Color Urine Appearance Urine pH Ur Specific Marks Urine Protein Urine Glucose (UA) Urine Ketones Urine Blood Urine Nitrite Ur Leukocyte Esterase Urine RBC Urine WBC Ur Squamous Epith Cells Urine Bacteria Hyaline Casts Random Vancomycin COVID-19 (SHANA) COVID-19 Clin Com 07/06/22 07/06/22 07/07/22 15:23 19:12 07:14 WBC RBC Hgb Hct MCV MCH MCHC RDW Plt Count MPV Immature Gran % (Auto) Neut % (Auto) Lymph % (Auto) [place] % (Auto) Eos % (Auto) Baso % (Auto) Lymph # (Auto) [place] # (Auto) Eos # (Auto) Baso # (Auto) Abs Immat Gran (auto) Absolute Neuts (auto) Absolute Nucleated RBC Nucleated RBC % (auto) ESR PT INR Sodium Potassium Chloride Carbon Dioxide Anion Gap BUN Creatinine Estim Creat Clear Calc Estimated GFR POC Glucose 227 H 204 H 155 H Random Glucose Lactic Acid Calcium Magnesium Total Bilirubin Direct Bilirubin AST ALT Alkaline Phosphatase C-Reactive Protein B-Natriuretic Peptide Total Protein Albumin Lipase Urine Color Urine Appearance Urine pH Ur Specific Marks Urine Protein Urine Glucose (UA) Urine Ketones Urine Blood Urine Nitrite Ur Leukocyte Esterase Urine RBC Urine WBC Ur Squamous Epith Cells Urine Bacteria Hyaline Casts Random Vancomycin COVID-19 (SHANA) COVID-19 Clin Com 07/07/22 07/07/22 07/07/22 08:32 08:32 10:59 WBC RBC Hgb Hct MCV MCH MCHC RDW Plt Count MPV Immature Gran % (Auto) Neut % (Auto) Lymph % (Auto) [place] % (Auto) Eos % (Auto) Baso % (Auto) Lymph # (Auto) [place] # (Auto) Eos # (Auto) Baso # (Auto) Abs Immat Gran (auto) Absolute Neuts (auto) Absolute Nucleated RBC Nucleated RBC % (auto) ESR PT INR Sodium Potassium Chloride Carbon Dioxide Anion Gap BUN Creatinine 1.65 H Estim Creat Clear Calc 31.1 Estimated GFR 40 POC Glucose 272 H Random Glucose Lactic Acid Calcium Magnesium Total Bilirubin Direct Bilirubin AST ALT Alkaline Phosphatase C-Reactive Protein B-Natriuretic Peptide Total Protein Albumin Lipase Urine Color Urine Appearance Urine pH Ur Specific Marks Urine Protein Urine Glucose (UA) Urine Ketones Urine Blood Urine Nitrite Ur Leukocyte Esterase Urine RBC Urine WBC Ur Squamous Epith Cells Urine Bacteria Hyaline Casts Random Vancomycin 16.1 COVID-19 (SHANA) COVID-19 Clin [employer] 07/07/22 07/07/22 07/08/22 15:48 20:04 06:10 WBC RBC Hgb Hct MCV MCH MCHC RDW Plt Count MPV Immature Gran % (Auto) Neut % (Auto) Lymph % (Auto) [place] % (Auto) Eos % (Auto) Baso % (Auto) Lymph # (Auto) [place] # (Auto) Eos # (Auto) Baso # (Auto) Abs Immat Gran (auto) Absolute Neuts (auto) Absolute Nucleated RBC Nucleated RBC % (auto) ESR PT INR Sodium Potassium Chloride Carbon Dioxide Anion Gap BUN Creatinine 1.40 Estim Creat Clear Calc 36.7 Estimated GFR 49 POC Glucose 224 H 196 H Random Glucose Lactic Acid Calcium Magnesium Total Bilirubin Direct Bilirubin AST ALT Alkaline Phosphatase C-Reactive Protein B-Natriuretic Peptide Total Protein Albumin Lipase Urine Color Urine Appearance Urine pH Ur Specific Marks Urine Protein Urine Glucose (UA) Urine Ketones Urine Blood Urine Nitrite Ur Leukocyte Esterase Urine RBC Urine WBC Ur Squamous Epith Cells Urine Bacteria Hyaline Casts Random Vancomycin COVID-19 (SHANA) COVID-19 Clin Com 07/08/22 07/08/22 07/08/22 06:10 07:42 11:29 WBC RBC Hgb Hct MCV MCH MCHC RDW Plt Count MPV Immature Gran % (Auto) Neut % (Auto) Lymph % (Auto) [place] % (Auto) Eos % (Auto) Baso % (Auto) Lymph # (Auto) [place] # (Auto) Eos # (Auto) Baso # (Auto) Abs Immat Gran (auto) Absolute Neuts (auto) Absolute Nucleated RBC Nucleated RBC % (auto) ESR PT INR Sodium 139 Potassium 4.3 Chloride 102 Carbon Dioxide 22 Anion Gap 19 BUN 36 H Creatinine 1.38 Estim Creat Clear Calc 37.2 Estimated GFR 49 POC Glucose 168 H 169 H Random Glucose 145 H Lactic Acid Calcium 9.5 Magnesium Total Bilirubin Direct Bilirubin AST ALT Alkaline Phosphatase C-Reactive Protein B-Natriuretic Peptide Total Protein Albumin Lipase Urine Color Urine Appearance Urine pH Ur Specific Marks Urine Protein Urine Glucose (UA) Urine Ketones Urine Blood Urine Nitrite Ur Leukocyte Esterase Urine RBC Urine WBC Ur Squamous Epith Cells Urine Bacteria Hyaline Casts Random Vancomycin COVID-19 (SHANA) COVID-19 Clin Com Airway Mallampati Class: II TM Dist: >3cm Denture: Upper and Lower Heart: rrr Lungs: cta Assessment and Plan Assessment Anesthesia Assessment: Anesthesia Plan Discussed and Chart Reviewed Final Anesthetic Review Family History of Problems with Anesthesia: No History of Problems with Anesthesia: Unobtainable NPO: Yes ASA Class: III Final Preanesthetic Review: No Changes in Pt Med Stat, Meds/Allgs Chart Reviewed, Consent Obtained/Reviewed and Anes Risks/Benef Reviewed Patient Risk: Intermediate Procedure Risk: Low Anesthetic Plan Anesthetic Plan: MAC: Disposition: Standard PACU
--- NOTE | 2022-07-08 14:48 | P.OP_ITS ---
Operative Note Operative Note Date of Service: 07/08/22 Narrative: Operative note by [facility] Preoperative diagnosis: Right great toe diabetic ulcer Postoperative diagnosis: Same Procedure: Right great toe amputation Surgeon:Elmer Tee M.D. Activity Aide: None Anesthesia: General Specimens: 1 Drains: None Estimated blood loss: Minimal Indications: 81-year-old gentleman with history of diabetes nonhealing ulcer presents for great toe amputation. He has had multiple trials of conservative management has been nonhealing. He had noninvasive testing which demonstrated arterial supplies within normal limits. He now presents for operative intervention. The patient has signed the informed consent after reviewing risks, complications, benefits, and alternatives previously discussed with the patient. The patient was given the opportunity to ask any additional questions or voice any concerns. All questions were answered to the patient's satisfaction. Procedure in detail: Patient was brought to the operating room prior to which a time-out was called for patient identification site verification. Right foot was prepped and draped in standard surgical fashion. Curvilinear fishmouth incision was created over the great toe in taken down to the metatarsal head. The toe was removed in its entirety. Deep layer was irrigated out thoroughly. We then reapproximated you deep layer using 2-0 Polysorb and superficial layer with a 2-0 nylon in a mattress fashion Xeroform and a sterile dressing were applied. At the end the case sponge instrument counts were correct. Patient tolerated the procedure well. Returned to recovery with stable vitals. This note is constructed using voice recognition software. While every effort has been made to ensure accuracy, cargo and ramp services manager errors may have been included. Thank you for allowing me to participate in the care of your patient. Yours sincerely, Elmer Tee MD, FACS, R.P.V.I.
--- NOTE | 2022-07-08 14:51 | MHC.SHP ---
Pre-Procedural Eval Section A Date of Service: 07/08/22 The patient is an INPATIENT: Yes Changes since office visit: Yes Patient answered all questions The History & Physical has been completed within 30 days and I have reviewed it.: Yes Section B Chief Complaint: ostemyelitis Allergies: Allergies Allergy/AdvReac Type Severity Reaction Status Date / Time Penicillins [PENICILLINS] Allergy Intermediate RASH Verified 07/08/22 13:23 Plan I have reviewed the history and physical and performed a pertinent physical examination on my patient. No changes have occurred unless specified. Time Spent With Patient Time: Total time managing care of this patient today ____ minutes.
--- NOTE | 2022-07-08 14:58 | MHC.CM.PN ---
PT NOT YET MEDICALLY CLEARED GREAT TOE AMP TODAY WILL NEED PT EVAL AND FINAL ABX RECOMMENDATIONS TO DETERMINE DC PLAN PT WANTS TO GO HOME WITH [facility]ATE[facility] SERVICES ARE NEEDED REFERRALS MADE
[2022-07-08 16:54] LABS: Glucose, Whole Blood 203 mg/dL (60-115)
[2022-07-08 16:54] LABS: Glucose, Whole Blood 199 mg/dL (60-115)
[2022-07-08] MEDS: Insulin Lispro 100 UNIT/ML 3 ML VIAL SUBCUT ×2 (17:00→20:46)
[2022-07-08] MEDS: oxyCODONE HCl Immed Release 5 MG TABLET PO (17:44)
[2022-07-08 20:21] LABS: Glucose, Whole Blood 163 mg/dL (60-115)
[2022-07-08] MEDS: Atorvastatin Calcium 80 MG TABLET PO (20:44)
[2022-07-08] MEDS: amLODIPine Besylate 10 MG TABLET PO (20:45)
[2022-07-08] MEDS: Insulin Glargine,Hum.rec.anlog 100 UNIT/ML 10 ML VIAL 10 UNIT SUBCUT (20:47)
[2022-07-08] MEDS: hydrALAZINE HCl 50 MG TABLET PO (20:54)
[2022-07-09 03:16] VITALS: BP 148/58; PULSE 89; RESP 17; TEMP 36.6; O2SAT 95
[2022-07-09] MEDS: Morphine Sulfate 2 MG/ML CARTRIDGE IVPUSH ×2 (03:19→08:11)
[2022-07-09] MEDS: diphenhydrAMINE HCL 50 MG/ML VIAL 25 MG IVPUSH ×3 (03:21→20:56)
[2022-07-09 07:14] LABS: Hematocrit 29.1 % (42.0-52.0); Hemoglobin 8.9 g/dl (14.0-18.0); Mean Corpuscular HGB Conc 30.6 g/dl (31.0-36.0); Mean Corpuscular Hemoglobin 25.4 pg (27.0-33.0); Mean Corpuscular Volume 82.9 fL (80.0-98.0); Mean Platelet Volume 11.1 fL (9.4-12.4); Platelet Count 383 X10*3/uL (160-400); Red Blood Count 3.51 X10*6/uL (4.60-5.80); Red Cell Distribution Width 15.9 % (11.0-16.0); White Blood Count 13.5 X10*3/uL (4.8-10.8)
[2022-07-09 07:30] VITALS: BP 127/58; PULSE 96; RESP 18; TEMP 37.8; O2SAT 91
[2022-07-09 07:44] LABS: Creatinine Clr Calc Pharmacy 28.7; Estimated Glomerular Filt Rate 37
[2022-07-09 07:51] LABS: Glucose, Whole Blood 164 mg/dL (60-115)
[2022-07-09 07:52] LABS: Anion Gap 17 (12-20); Blood Urea Nitrogen 40 mg/dL (9-16); Calcium 9.4 mg/dL (8.4-10.2); Carbon Dioxide 29 mmol/L (22-29); Chloride 96 mmol/L (96-108); Creatinine Clr Calc Pharmacy 28.3; Estimated Glomerular Filt Rate 36; Glucose Random 164 mg/dL (60-115); Potassium 4.8 mmol/L (3.3-5.1); Sodium 137 mmol/L (135-145)
[2022-07-09] MEDS: 0.9 % Sodium Chloride Flush 3 ML SYRINGE IVFLUSH (08:11)
[2022-07-09] MEDS: Empagliflozin 10 MG TABLET PO (08:12)
[2022-07-09] MEDS: Acetaminophen 325 MG TABLET 650 MG PO ×2 (08:12→20:40)
[2022-07-09] MEDS: Furosemide 40 MG TABLET PO (08:12)
[2022-07-09] MEDS: Aspirin Enteric Coated 81 MG TABLET.DR PO (08:12)
[2022-07-09] MEDS: Insulin Lispro 100 UNIT/ML 3 ML VIAL SUBCUT ×2 (08:12→20:41)
[2022-07-09] MEDS: Metoprolol Succinate ER 50 MG TAB.ER.24H PO (08:12)
[2022-07-09] MEDS: Losartan Potassium 50 MG TABLET PO (08:13)
[2022-07-09] MEDS: Cholecalciferol (Vitamin D3) 25 MCG TABLET PO (08:13)
[2022-07-09 11:23] LABS: Glucose, Whole Blood 124 mg/dL (60-115)
[2022-07-09 11:27] VITALS: BP 121/60; PULSE 79; RESP 17; TEMP 37.3; O2SAT 93
[2022-07-09] MEDS: oxyCODONE HCl Immed Release 5 MG TABLET PO ×2 (11:30→20:40)
--- NOTE | 2022-07-09 12:44 | P.PNIM_ITS ---
Subjective Subjective Date of Service: 07/09/22 Interval History: Seen and evaluated this morning complaining of pain after surgery Cr worsening overnight No fever or chills Review of Systems No fever, chills or weakness No chest pain, palpitation No shortness of breath or coughing No abdominal pain, nausea or vomiting No urinary symptoms Right big toe wound Physical Exam Vital Signs: Vital Signs: Last Vital Signs Temp 99.1 F 07/09/22 11:27 Pulse 79 07/09/22 11:27 Resp 17 07/09/22 11:27 BP 121/60 07/09/22 11:27 Pulse Ox 93 07/09/22 11:27 O2 Del Method 07/09/22 11:27 O2 Flow Rate 8 07/08/22 15:03 BMI result Body Mass Index 25.8 Const: Other: Constitutional : Awake, interactive, not in distress Neck : Normal inspection, Supple Cardiovascular : RRR, no JVP, no lower extremity edema Respiratory : good bilateral air entry, no crackles, wheezes or rhonchi Gastrointestinal: soft, lax, Normal bowel sounds, Non tender Skin : Warm, Dry, foot covered with dressing with no erythema or drainage noted Neurological : Alert & oriented to self and place, No focal deficit Objective Data Active Medications Acetaminophen (Acetaminophen 325 Mg Tablet) 650 mg PO Q6H PRN PRN Reason: Pain, Mild (Pain Scale 1-3) Last Admin: 07/09/22 08:12 Dose: 650 mg Documented By: LOVELY Amlodipine Besylate (Amlodipine Besylate 10 Mg Tablet) 10 mg PO BEDTIME [facility]; Protocol Last Admin: 07/08/22 20:45 Dose: 10 mg Documented By: FAUSTINA Aspirin (Aspirin Enteric Coated 81 Mg Tablet.Dr) 81 mg PO DAILY [facility] Last Admin: 07/09/22 08:12 Dose: 81 mg Documented By: LOVELY Atorvastatin Calcium (Atorvastatin Calcium 80 Mg Tablet) 80 mg PO BEDTIME [facility] Last Admin: 07/08/22 20:44 Dose: 80 mg Documented By: FAUSTINA Diphenhydramine HCl (Diphenhydramine Hcl 50 Mg/Ml Vial) 25 mg IVPUSH Q6H PRN PRN Reason: Allergic Reaction Last Admin: 07/09/22 12:05 Dose: 25 mg Documented By: LOVELY Empagliflozin (Empagliflozin 10 Mg Tablet) 10 mg PO DAILY [facility] Last Admin: 07/09/22 08:12 Dose: 10 mg Documented By: LOVELY Enoxaparin Sodium (Enoxaparin Sodium 30 Mg/0.3 Ml Syringe) 30 mg SUBCUT Q24H [facility] Furosemide (Furosemide 40 Mg Tablet) 40 mg PO DAILY [facility]; Protocol Last Admin: 07/09/22 08:12 Dose: 40 mg Documented By: LOVELY Hydralazine HCl (Hydralazine Hcl 50 Mg Tablet) 50 mg PO BID [facility]; Protocol Last Admin: 07/09/22 09:05 Dose: Not Given Documented By: LOVELY Non-Admin Reason: Decreased Blood Pressure Levofloxacin (Levaquin) 500 mg in 100 mls @ 100 mls/hr IV Q48H [facility] Last Infusion: 07/07/22 16:31 Dose: 0 mls/hr Documented By: COLLEEN Insulin Glargine (Insulin Glargine,Hum.Rec.Anlog 100 Unit/Ml 10 Ml Vial) 10 unit SUBCUT BEDTIME [facility] Last Admin: 07/08/22 20:47 Dose: 10 unit Documented By: FAUSTINA Insulin Human Lispro (Insulin Lispro 100 Unit/Ml 3 Ml Vial) 0 unit SUBCUT QIDACHS [facility]; Protocol Last Admin: 07/09/22 11:37 Dose: Not Given Documented By: LOVELY Non-Admin Reason: No Insulin Coverage Losartan Potassium (Losartan Potassium 50 Mg Tablet) 50 mg PO DAILY [facility]; Protocol Last Admin: 07/09/22 08:13 Dose: 50 mg Documented By: LOVELY Metoprolol Succinate (Metoprolol Succinate Er 50 Mg Tab.Er.24h) 50 mg PO DAILY [facility]; Protocol Last Admin: 07/09/22 08:12 Dose: 50 mg Documented By: LOVELY Omeprazole (Omeprazole 20 Mg Capsule.Dr) 20 mg PO DAILY@0630 [facility] Last Admin: 07/09/22 05:39 Dose: Not Given Documented By: FAUSTINA Non-Admin Reason: Patient Refused Ondansetron HCl (Ondansetron Hcl 4 Mg/2 Ml Vial) 4 mg IVPUSH Q8H PRN PRN Reason: Nausea and Vomiting Ondansetron HCl (Ondansetron Hcl 4 Mg/2 Ml Vial) 4 mg IVPUSH ONCE PRN PRN Reason: Nausea and Vomiting Oxycodone HCl (Oxycodone Hcl Immed Release 5 Mg Tablet) 5 mg PO Q4H PRN PRN Reason: Pain, Severe (Pain Scale 7-10) Last Admin: 07/09/22 11:30 Dose: 5 mg Documented By: LOVELY Sodium Chloride (0.9 % Sodium Chloride Flush 3 Ml Syringe) 3 ml IVFLUSH QSHIFT [facility] Last Admin: 07/09/22 08:11 Dose: 3 ml Documented By: LOVELY Vitamin D (Cholecalciferol (Vitamin D3) 25 Mcg Tablet) 25 mcg PO DAILY [facility] Last Admin: 07/09/22 08:13 Dose: 25 mcg Documented By: LOVELY Labs 07/09/22 05:32 07/09/22 05:32 Labs: Laboratory Results - last 24 hr 07/08/22 07/08/22 07/08/22 16:40 16:42 20:10 MCV MCH MCHC RDW Plt Count MPV Absolute Nucleated RBC Nucleated RBC % (auto) Anion Gap Estim Creat Clear Calc Estimated GFR POC Glucose 203 H 199 H 163 H Random Glucose Calcium Vancomycin Trough 07/09/22 07/09/22 07/09/22 05:32 05:32 05:32 MCV 82.9 MCH 25.4 L MCHC 30.6 L RDW 15.9 Plt Count 383 MPV 11.1 Absolute Nucleated RBC 0.000 Nucleated RBC % (auto) 0.0 Anion Gap 17 Estim Creat Clear Calc 28.7 28.3 Estimated GFR 37 36 POC Glucose Random Glucose 164 H Calcium 9.4 Vancomycin Trough 07/09/22 07/09/22 07/09/22 07:21 08:35 11:12 MCV MCH MCHC RDW Plt Count MPV Absolute Nucleated RBC Nucleated RBC % (auto) Anion Gap Estim Creat Clear Calc Estimated GFR POC Glucose 164 H 124 H Random Glucose Calcium Vancomycin Trough 12.0 Microbiology Microbiology Results: Microbiology 07/03/22 10:21 Blood Culture - Final Blood - Venous No growth after 5 days. 07/03/22 10:07 Blood Culture - Final Blood - Venous No growth after 5 days. Assessment and Plan (1) Diabetic ulcer of right great toe: Status: Acute Assessment and Plan: An 81 years old male with PMH of COPD, CVA, HTN, diabetes, dementia, HLD among others who presented to the hospital with right toe nonhealing ulcer. 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 POD 1 wound Cx growing Pseudomonas Discontinue vancomycin Continue Levaquin Vascular studies (doppler) looked ok, no major obstruction or stenosis vascular surgery input appreciated, needs amputation of big toe ID input appreciated, Levaquin for 2 weeks Morphine, oxycodone prn for pain Vascular surgery planning on Angiogram, by worsening CKD3 Cr increased mildly with elevated BUN to give 1L of fluid To administer more IV fluids prior to angiogram the day of procedure Type 2 diabetes SSI, POC Continue Lantus Diabetic diet Hypertension Continue amlodipine, hydralazine and losartan HLD Continue statin DVT PPX Lovenox The patient will likely need at least overnight hospital stay for evaluation and treatment of osteomyelitis pending surgical intervention (2) PAD (peripheral artery disease): Status: Acute (3) Osteomyelitis: Status: Acute Time Spent With Patient Time: Total time managing care of this patient today ____ minutes. Quality Stroke Does the patient have a stroke diagnosis?: No VTE Prior VTE?: No VTE Risk Level:: Medical - moderate - high VTE Device Contraindication: Treatment Not Indicated VTE Drug Contraindication: N/A - Med Ordered
[2022-07-09] MEDS: 0.9 % Sodium Chloride 1,000 ML 125 ML IVCONT (13:15)
--- NOTE | 2022-07-09 13:23 | HO.POSTANES ---
Post Anesthesia Evaluation Post Anesthesia Evaluation Vital Signs: Vital Signs Temp Pulse Resp BP Pulse Ox O2 Del Method 07/09/22 11:27 99.1 F 79 17 121/60 93 Room Air 07/09/22 07:30 100.0 F 96 18 127/58 L 91 L Room Air 07/09/22 03:16 98 F 89 17 148/58 H 95 Room Air Anesthesia: General Mental Status: Awake Pain Control: Satisfactory (difficult controlling pain) Nausea/Vomiting: None Hydration: Adequate Anesthesia-Related Issues: No Anes. Related Issues
--- NOTE | 2022-07-09 13:42 | P.PNVS_ITS ---
Subjective Subjective Date of Service: 07/09/22 Patient reports: still having pain Interval history: Pleasant 81-year-old gentleman with prior history of diabetes underwent great toe amputation yesterday. Still complains of pain. He did have noninvasive testing prior to this. Physical Exam Vital Signs: Vital Signs: Last Vital Signs Temp 99.1 F 07/09/22 11:27 Pulse 79 07/09/22 11:27 Resp 17 07/09/22 11:27 BP 121/60 07/09/22 11:27 Pulse Ox 93 07/09/22 11:27 O2 Del Method 07/09/22 11:27 O2 Flow Rate 8 07/08/22 15:03 BMI result Body Mass Index 25.8 Const: General: cooperative, healthy appearing and comfortable Orientation/consciousness: oriented to person, oriented to place and oriented to time HEENT: Head: Yes normal to inspection Neck: Neck: Yes normal visual inspection Carotids: no bruits Chest: Chest palpation & inspection: normal inspection of the chest Resp: Effort & Inspection: normal respiratory effort and able to speak in complete sentences Auscultation: clear to auscultation bilaterally, no crackles, no rales, no rhonchi and no wheezes Cardio: Rate: regular rate Rhythm: regular rhythm Heart sounds: S1 normal heart sound present and S2 normal heart sound present Bruits: no carotid bruits Peripheral pulses: Peripheral pulses 2+ throughout GI: Inspection: Yes normal to inspection Skin: Other: Dressing clean dry intact Wounds: amputation site Hair: normal Neuro: General: oriented to person, oriented to place and oriented to time Cranial nerves: Yes CN's II-XII intact bilaterally and Yes Normal hearing presen t Cognition (Neuro): normal cognition Motor exam (neuro): 5/5 motor strength present throughout Extrem: Other: venous exam: No significant superficial varicosities or spider telangiectasias, minimal edema General: No clubbing, No cyanosis and No edema Psych: Appearance: grossly normal Mental Status: mental status grossly normal Speech and movement: Normal speech and movement present Progress Note: A&P Assessment and plan (1) PAD (peripheral artery disease): Status: Acute Assessment and Plan: In short patient has undergone toe amputation. Scheduled for dressing change tomorrow. The concern is that during amputation the wound bed did not bleed well. He may require endovascular intervention. His renal function has fluctuated quite a bit. Will plan for evaluation tomorrow and possible endovascular intervention on . Thank you for allowing us to assist in his care. If there are any questions or concerns please do not hesitate to contact us. Time Spent With Patient Time: Total time managing care of this patient today ____ minutes. Procedures Date of Service Date of Service: 07/09/22 Quality Stroke Does the patient have a stroke diagnosis?: No VTE Prior VTE?: No VTE Risk Level:: Medical - moderate - high VTE Device Contraindication: Treatment Not Indicated VTE Drug Contraindication: N/A - Med Ordered
--- NOTE | 2022-07-09 14:52 | MHC.CM.PN ---
option fdc infusion and homecare vna made aware that there are no plans for dc today or tomorrow. CM continuing to follow
[2022-07-09 15:10] VITALS: BP 121/56; PULSE 77; RESP 19; TEMP 36.5; O2SAT 93
[2022-07-09 15:44] LABS: Glucose, Whole Blood 133 mg/dL (60-115)
[2022-07-09] MEDS: levoFLOXacin/D5W 500 MG/100 ML PIGGYBACK 100 MG IV (16:32)
[2022-07-09] MEDS: Morphine Sulfate 4 MG/ML CARTRIDGE 3 MG IVPUSH (18:29)
[2022-07-09] MEDS: Enoxaparin Sodium 30 MG/0.3 ML SYRINGE SUBCUT (18:29)
[2022-07-09 19:29] VITALS: BP 127/60; PULSE 78; RESP 18; TEMP 37; O2SAT 92
[2022-07-09 19:52] LABS: Glucose, Whole Blood 199 mg/dL (60-115)
[2022-07-09] MEDS: amLODIPine Besylate 10 MG TABLET PO (20:39)
[2022-07-09] MEDS: Atorvastatin Calcium 80 MG TABLET PO (20:39)
[2022-07-09] MEDS: hydrALAZINE HCl 50 MG TABLET PO (20:39)
[2022-07-09] MEDS: Insulin Glargine,Hum.rec.anlog 100 UNIT/ML 10 ML VIAL 10 UNIT SUBCUT (20:41)
[2022-07-10] VITALS: BP 123/48; PULSE 78; RESP 17; TEMP 36.8; O2SAT 95
[2022-07-10] MEDS: oxyCODONE HCl Immed Release 5 MG TABLET PO ×3 (01:03→19:54)
[2022-07-10 03:24] VITALS: BP 153/60; PULSE 88; RESP 17; TEMP 36.9; O2SAT 95
[2022-07-10] MEDS: Omeprazole 20 MG CAPSULE.DR PO (05:57)
[2022-07-10] MEDS: Acetaminophen 325 MG TABLET 650 MG PO (06:01)
[2022-07-10 07:20] VITALS: BP 127/56; PULSE 95; RESP 17; TEMP 37.7
[2022-07-10 07:42] LABS: Glucose, Whole Blood 189 mg/dL (60-115)
[2022-07-10 07:50] LABS: Creatinine Clr Calc Pharmacy 29.7; Estimated Glomerular Filt Rate 38
[2022-07-10 07:53] LABS: Anion Gap 19 (12-20); Blood Urea Nitrogen 41 mg/dL (9-16); Calcium 9.3 mg/dL (8.4-10.2); Carbon Dioxide 24 mmol/L (22-29); Chloride 100 mmol/L (96-108); Creatinine Clr Calc Pharmacy 29.7; Estimated Glomerular Filt Rate 38; Glucose Random 110 mg/dL (60-115); Potassium 4.7 mmol/L (3.3-5.1); Sodium 138 mmol/L (135-145)
[2022-07-10] MEDS: hydrALAZINE HCl 50 MG TABLET PO ×2 (08:04→19:50)
[2022-07-10] MEDS: Cholecalciferol (Vitamin D3) 25 MCG TABLET PO (08:04)
[2022-07-10] MEDS: Metoprolol Succinate ER 50 MG TAB.ER.24H PO (08:04)
[2022-07-10] MEDS: Empagliflozin 10 MG TABLET PO (08:04)
[2022-07-10] MEDS: Losartan Potassium 50 MG TABLET PO (08:05)
[2022-07-10] MEDS: Aspirin Enteric Coated 81 MG TABLET.DR PO (08:05)
[2022-07-10] MEDS: Furosemide 40 MG TABLET PO (08:05)
[2022-07-10] MEDS: Insulin Lispro 100 UNIT/ML 3 ML VIAL SUBCUT ×3 (08:05→19:52)
[2022-07-10] MEDS: Morphine Sulfate 4 MG/ML CARTRIDGE 3 MG IVPUSH (08:06)
[2022-07-10] MEDS: 0.9 % Sodium Chloride Flush 3 ML SYRINGE IVFLUSH ×2 (08:07→17:07)
--- NOTE | 2022-07-10 08:07 | HO.VASCPN ---
Subjective Subjective Date of Service: 07/10/22 Patient reports: no new complaints and feels better Interval history: 81-year-old gentleman postop day 2 status post right great toe amp. Appears to be doing relatively well from the amputation standpoint. He does have generalized pain which is not typical. In addition he also has complaints of itching. He now presents for dressing change. Physical Exam Vital Signs: Vital Signs: Last Vital Signs Temp 99.9 F 07/10/22 07:20 Pulse 95 07/10/22 07:20 Resp 17 07/10/22 07:20 BP 127/56 L 07/10/22 07:20 Pulse Ox 95 07/10/22 03:24 O2 Del Method 07/10/22 03:24 O2 Flow Rate 8 07/08/22 15:03 BMI result Body Mass Index 25.8 Const: General: cooperative, healthy appearing and no acute distress Orientation/consciousness: oriented to person, oriented to place and oriented to time HEENT: Head: Yes normal to inspection Neck: Carotids: no bruits Chest: Chest palpation & inspection: normal inspection of the chest Resp: Effort & Inspection: normal respiratory effort and able to speak in complete sentences Auscultation: clear to auscultation bilaterally Cardio: Rate: regular rate Heart sounds: S1 normal heart sound present and S2 normal heart sound present GI: Inspection: Yes normal to inspection Skin: General skin exam: no rashes or lesions noted Wounds: amputation site (Amp site healing well) Neuro: General: oriented to person, oriented to place, oriented to time and CN's II-XI intact bilaterally Extrem: General: Yes normal to inspection, Yes full ROM and Yes no clubbing, cyanosis or edema Psych: Appearance: grossly normal and well kempt Speech and movement: Normal speech and movement present Affect: normal affect Progress Note: A&P Assessment and plan (1) PAD (peripheral artery disease): Status: Acute Assessment and Plan: In short doing well status post toe amp. The concern was that the amputation was not bleeding a fair amount during the operation. At the current time it does appear to be stable. Would hold off on angiogram. In addition his renal function has not reached optimal levels. Stable from my perspective for discharge. Will write wound orders. Can see me as an outpatient in approximately 2 weeks for suture removal thank you for allowing us to assist in his care. Time Spent With Patient Time: Total time managing care of this patient today ____ minutes. Procedures Date of Service Date of Service: 07/10/22 Quality Stroke Does the patient have a stroke diagnosis?: No VTE Prior VTE?: No VTE Risk Level:: Medical - moderate - high VTE Device Contraindication: Treatment Not Indicated VTE Drug Contraindication: N/A - Med Ordered
[2022-07-10 11:14] LABS: Glucose, Whole Blood 187 mg/dL (60-115)
[2022-07-10 11:28] VITALS: BP 114/51; PULSE 78; RESP 17; TEMP 37.6; O2SAT 89
--- NOTE | 2022-07-10 11:44 | P.DS_ITS ---
DS: Providers Provider Date of Service: 07/11/22 Date of admission: 07/03/22 15:27 Primary care physician: Gonzales Ross MD Consults: 07/03/22 15:24 Consult to General Surgery Routine Consulting Provider: Hu Eaton Reason for consultation: Rt big toe OM Consult to Infectious Diseases Routine Consulting Provider: Thuy Gale Reason for consultation: Rt big toe OM for eval and rec 07/03/22 16:07 Consult to Vascular Surgery Routine Consulting Provider: Elmer Rivera Reason for consultation: Right great toe ulcer, severe right SFA and PT ather osclerotic disease DS: Diagnosis Discharge Diagnosis (1) PAD (peripheral artery disease): Status: Acute DS: Summary Hospital Course Hospital Course: from initial hpi: An 81 years old male with PMH of COPD, CVA, HTN, diabetes, dementia, HLD among others who presented to the hospital with right toe nonhealing ulcer.? The patient was treated previously it in January we need to to for osteomyelitis with IV antibiotics with no significant improvement.? The patient did not provide much of history given his dementia.? He reports that the toes bothering him much more than before with small amount of drainage.? Denies any fever, chills, chest pain, palpitation, nausea, vomiting, change in bowel habit or urinary symptoms.? An x-ray done in the emergency was concerning for us to this.? Admitted for further evaluation and treatment. hospital course: Patient was admitted for right 1st toe osteomyelitis due to diabetes type 2. He was treated with vancomycin and levofloxacin. He underwent right 1st toe amputation with good margins. Antibiotics have been discontinued. Plan for angiogram has been deferred for now. For CKD 3, creatinine has been labile. Should be monitored outpatient. For diabetes type 2 is continue on insulin. For hypertension is continue on amlodipine, hydralazine, losartan. For hyperlipidemia was continued on statin. course was complicated by acute hypoixc respiratory failure due to acute on chronic diasotlic chf and possible pneumonia. was given some iv diuresis and completed course of levaquin, was weaned of o2. Patient has been feeling better will be discharged home. Time Spent with Patient Time attestation: Total time managing care of this patient today ____ minutes. Discharge coordination time: Greater than 30 minutes Quality: Safe Use of Opioids Does Pt have an Active Cancer Diagnosis on the Problem List?: No Quality: Stroke Does the patient have a stroke diagnosis?: No Physical Exam Vital Signs: Vital Signs: Last Vital Signs Temp 99.6 F 07/10/22 11:28 Pulse 78 07/10/22 11:28 Resp 17 07/10/22 11:28 BP 114/51 L 07/10/22 11:28 Pulse Ox 89 L 07/10/22 11:28 O2 Del Method 07/10/22 11:28 O2 Flow Rate 8 07/08/22 15:03 BMI result Body Mass Index 25.8 General: AO X 3, no acute distress Resp: CTA bilateral, no accessory muscles used CVS: S1,S2,RRR GI: soft, non tender, non distended Neuro: motor grossly intact, alert Psych: appropriate affect, appropriate insight DS: Data Data Completed and Pending Completed studies during hospitalization [Text1]: Procedures Insertion of Infusion Device into Superior Vena Cava, Percutaneous Approach (01/17/22) Ultrasonography of Superior Vena Cava, Guidance (01/17/22) Pending studies at discharge: Pending at discharge 07/08/22 14:21 Surgical [PTH] Routine Labs on day of discharge: Laboratory Results - last 24 hr 07/09/22 07/09/22 07/10/22 15:07 19:32 06:02 Sodium Potassium Chloride Carbon Dioxide Anion Gap BUN Creatinine 1.73 H Estim Creat Clear Calc 29.7 Estimated GFR 38 POC Glucose 133 H 199 H Random Glucose Calcium 07/10/22 07/10/22 07/10/22 06:02 07:28 11:08 Sodium 138 Potassium 4.7 Chloride 100 Carbon Dioxide 24 Anion Gap 19 BUN 41 H Creatinine 1.73 H Estim Creat Clear Calc 29.7 Estimated GFR 38 POC Glucose 189 H 187 H Random Glucose 110 Calcium 9.3 Discharge Plan Discharge Anticipated Discharge Date/Time: 07/10/22 11:40 Patient Disposition: Home Health Service Discharge Diagnosis: OM Referrals: Gonzales Ross MD [Primary Care Provider] - 1 Week Discharge Medications: New oxycodone 5 mg Tablet 5 mg PO Q4H PRN (Reason: Pain, Severe (Pain Scale 7-10)) Qty: 15 0RF Rx Instructions: Partial Fill upon patient request. Continued insulin glargine [Lantus U-100 Insulin] 100 unit/mL solution 15 unit subcut BEDTIME atorvastatin 80 mg tablet 80 mg PO BEDTIME aspirin 81 mg tablet,delayed release (DR/EC) 81 mg PO DAILY amlodipine 10 mg tablet 10 mg PO BEDTIME omeprazole 20 mg capsule,delayed release(DR/EC) 20 mg PO DAILY@0630 hydralazine 50 mg Tablet 50 mg PO BID metoprolol succinate 50 mg Tablet Extended Release 24 Hr 50 mg PO DAILY cholecalciferol (vitamin D3) 25 mcg (1,000 unit) tablet 1 tab PO DAILY Jardiance 10 mg tablet 1 tab PO DAILY losartan 50 mg tablet 50 mg PO DAILY furosemide 40 mg tablet 1 tab QAM (DME) compr.stocking,knee,long,large Misc See Rx Instructions .Route Qty: 12 0RF Rx Instructions: As directed (DME) compress.stocking,knee,reg,lrg Misc See Rx Instructions .Route Qty: 2 0RF Rx Instructions: As directed Discontinued doxycycline hyclate 100 mg tablet 100 mg PO BID 30 Days Qty: 60 1RF Discharge Orders: Discharge Order (Routine); Ordered 07/11/22 Ordered By: Xander Jacome Diet: Advance to usual diet Activity on Discharge: As tolerated Stand Alone Forms: Patient Portal Discharge page Activity Restrictions/Additional Instructions: Wound care upon discharge: xeroform, 4x4 and Kerlix wrap to be changed daily. Please call Dr. Rivera at [phone] for 2 week follow up for suture and staple removal Care Plan Goals: recovery Health Concerns: s/p toe amp Plan of Treatment: follow up with dr rivera Assessment: see above
--- NOTE | 2022-07-10 11:58 | MHC.CM.PN ---
Addendum entered by Nessa Ortega RN 07/10/22 12:08: DC CANCELLED SON, PIEDAD [phone] AWARE PATIENT WILL NEED BLS HOME UPON DC Original Note: PATIENT IS DC HOME TODAY WITH RESUMPTION OF HIS HOME CARE [facility] SERVICES. RN AWARE OF PLAN. IMM 07/09 IN CHART
--- NOTE | 2022-07-10 12:40 | HO.PM.IMPN ---
Subjective Subjective Date of Service: 07/10/22 Interval History: planned for dc today, but noted to be hypoxic to 89% on room air, denies sob Physical Exam Vital Signs: Vital Signs: Last Vital Signs Temp 99.6 F 07/10/22 11:28 Pulse 78 07/10/22 11:28 Resp 17 07/10/22 11:28 BP 114/51 L 07/10/22 11:28 Pulse Ox 89 L 07/10/22 11:28 O2 Del Method 07/10/22 11:28 O2 Flow Rate 8 07/08/22 15:03 BMI result Body Mass Index 25.8 General: AO X 3, no acute distress Resp: Crackles RLL, no accessory muscles used CVS: S1,S2,RRR GI: soft, non tender, non distended Neuro: motor grossly intact, alert Psych: appropriate affect, appropriate insight Objective Data Active Medications Acetaminophen (Acetaminophen 325 Mg Tablet) 650 mg PO Q6H PRN PRN Reason: Pain, Mild (Pain Scale 1-3) Last Admin: 07/10/22 06:01 Dose: 650 mg Documented By: IRON Amlodipine Besylate (Amlodipine Besylate 10 Mg Tablet) 10 mg PO BEDTIME [facility]; Protocol Last Admin: 07/09/22 20:39 Dose: 10 mg Documented By: COURTNEY Aspirin (Aspirin Enteric Coated 81 Mg Tablet.) 81 mg PO DAILY [facility] Last Admin: 07/10/22 08:05 Dose: 81 mg Documented By: FREDDIE Atorvastatin Calcium (Atorvastatin Calcium 80 Mg Tablet) 80 mg PO BEDTIME [facility] Last Admin: 07/09/22 20:39 Dose: 80 mg Documented By: COURTNEY Diphenhydramine HCl (Diphenhydramine Hcl 50 Mg/Ml Vial) 25 mg IVPUSH Q6H PRN PRN Reason: Allergic Reaction Last Admin: 07/09/22 20:56 Dose: 25 mg Documented By: COURTNEY Empagliflozin (Empagliflozin 10 Mg Tablet) 10 mg PO DAILY [facility] Last Admin: 07/10/22 08:04 Dose: 10 mg Documented By: FREDDIE Enoxaparin Sodium (Enoxaparin Sodium 30 Mg/0.3 Ml Syringe) 30 mg SUBCUT Q24H [facility] Last Admin: 07/09/22 18:29 Dose: 30 mg Documented By: LOVELY Furosemide (Furosemide 40 Mg Tablet) 40 mg PO DAILY [facility]; Protocol Last Admin: 07/10/22 08:05 Dose: 40 mg Documented By: FREDDIE Hydralazine HCl (Hydralazine Hcl 50 Mg Tablet) 50 mg PO BID [facility]; Protocol Last Admin: 07/10/22 08:04 Dose: 50 mg Documented By: FREDDIE Levofloxacin (Levaquin) 500 mg in 100 mls @ 100 mls/hr IV Q48H [facility] Last Infusion: 07/09/22 17:37 Dose: 0 mls/hr Documented By: LOVELY Insulin Glargine (Insulin Glargine,Hum.Rec.Anlog 100 Unit/Ml 10 Ml Vial) 10 unit SUBCUT BEDTIME [facility] Last Admin: 07/09/22 20:41 Dose: 10 unit Documented By: COURTNEY Insulin Human Lispro (Insulin Lispro 100 Unit/Ml 3 Ml Vial) 0 unit SUBCUT QIDACHS [facility]; Protocol Last Admin: 07/10/22 12:22 Dose: Not Given Documented By: FREDDIE Non-Admin Reason: Patient Refused Losartan Potassium (Losartan Potassium 50 Mg Tablet) 50 mg PO DAILY [facility]; Protocol Last Admin: 07/10/22 08:05 Dose: 50 mg Documented By: FREDDIE Metoprolol Succinate (Metoprolol Succinate Er 50 Mg Tab.Er.24h) 50 mg PO DAILY [facility]; Protocol Last Admin: 07/10/22 08:04 Dose: 50 mg Documented By: FREDDIE Morphine Sulfate (Morphine Sulfate 4 Mg/Ml Cartridge) 3 mg IVPUSH Q4H PRN; Protocol PRN Reason: Pain, Severe (Pain Scale 7-10) Last Admin: 07/10/22 08:06 Dose: 3 mg Documented By: FREDDIE Omeprazole (Omeprazole 20 Mg Capsule.Dr) 20 mg PO DAILY@0630 [facility] Last Admin: 07/10/22 05:57 Dose: 20 mg Documented By: IRON Ondansetron HCl (Ondansetron Hcl 4 Mg/2 Ml Vial) 4 mg IVPUSH Q8H PRN PRN Reason: Nausea and Vomiting Ondansetron HCl (Ondansetron Hcl 4 Mg/2 Ml Vial) 4 mg IVPUSH ONCE PRN PRN Reason: Nausea and Vomiting Oxycodone HCl (Oxycodone Hcl Immed Release 5 Mg Tablet) 5 mg PO Q4H PRN PRN Reason: Pain, Severe (Pain Scale 7-10) Last Admin: 07/10/22 06:01 Dose: 5 mg Documented By: IRON Sodium Chloride (0.9 % Sodium Chloride Flush 3 Ml Syringe) 3 ml IVFLUSH QSHIFT [facility] Last Admin: 07/10/22 08:07 Dose: 3 ml Documented By: FREDDIE Vitamin D (Cholecalciferol (Vitamin D3) 25 Mcg Tablet) 25 mcg PO DAILY [facility] Last Admin: 07/10/22 08:04 Dose: 25 mcg Documented By: FREDDIE Labs 07/09/22 05:32 07/10/22 06:02 Labs: Laboratory Results - last 24 hr 07/09/22 07/09/22 07/10/22 15:07 19:32 06:02 Anion Gap Estim Creat Clear Calc 29.7 Estimated GFR 38 POC Glucose 133 H 199 H Random Glucose Calcium 07/10/22 07/10/22 07/10/22 06:02 07:28 11:08 Anion Gap 19 Estim Creat Clear Calc 29.7 Estimated GFR 38 POC Glucose 189 H 187 H Random Glucose 110 Calcium 9.3 Assessment and Plan (1) Diabetic ulcer of right great toe: Status: Acute Assessment and Plan: An 81 years old male with PMH of COPD, CVA, HTN, diabetes, dementia, HLD among others who presented to the hospital with right toe nonhealing ulcer. 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 POD 2 no need for further abx acute hypoxic respiratory failure due to RLL pneumonia and acute on chronic diastolic chf iv lasix add rocephin, continue levaquin CKD III monitor Type 2 diabetes SSI, POC Continue Lantus Diabetic diet Hypertension Continue amlodipine, hydralazine and losartan HLD Continue statin DVT PPX Lovenox reason for continued hospitalization:hypoxia (2) PAD (peripheral artery disease): Status: Acute (3) Osteomyelitis: Status: Acute Time Spent With Patient Time: Total time managing care of this patient today ____ minutes. Quality Stroke Does the patient have a stroke diagnosis?: No VTE Prior VTE?: No VTE Risk Level:: Medical - moderate - high VTE Device Contraindication: Treatment Not Indicated VTE Drug Contraindication: N/A - Med Ordered
[2022-07-10] MEDS: Furosemide 40 MG/4 ML VIAL IVPUSH (13:27)
[2022-07-10] MEDS: cefTRIAXone sodium 1 GM in 0.9 % Sodium Chloride 50 ML IV (13:27)
[2022-07-10 16:00] VITALS: BP 114/56; PULSE 74; RESP 74; TEMP 36.9; O2SAT 97
[2022-07-10 17:05] LABS: Glucose, Whole Blood 197 mg/dL (60-115)
[2022-07-10] MEDS: Enoxaparin Sodium 30 MG/0.3 ML SYRINGE SUBCUT (17:06)
[2022-07-10 19:42] VITALS: BP 132/50; PULSE 82; RESP 18; TEMP 37.4; O2SAT 97
[2022-07-10 19:44] LABS: Glucose, Whole Blood 207 mg/dL (60-115)
[2022-07-10] MEDS: amLODIPine Besylate 10 MG TABLET PO (19:51)
[2022-07-10] MEDS: Atorvastatin Calcium 80 MG TABLET PO (19:51)
[2022-07-10] MEDS: Insulin Glargine,Hum.rec.anlog 100 UNIT/ML 10 ML VIAL 10 UNIT SUBCUT (19:54)
[2022-07-11] MEDS: oxyCODONE HCl Immed Release 5 MG TABLET PO ×2 (02:26→07:56)
[2022-07-11] MEDS: 0.9 % Sodium Chloride Flush 3 ML SYRINGE IVFLUSH ×2 (02:26→07:58)
[2022-07-11 03:31] VITALS: BP 118/49; PULSE 86; RESP 17; TEMP 37.1; O2SAT 95
[2022-07-11] MEDS: diphenhydrAMINE HCL 50 MG/ML VIAL 25 MG IVPUSH ×2 (04:59→10:41)
[2022-07-11] MEDS: Omeprazole 20 MG CAPSULE.DR PO (05:00)
[2022-07-11 07:40] LABS: Glucose, Whole Blood 148 mg/dL (60-115)
[2022-07-11 07:42] LABS: Hematocrit 26.1 % (42.0-52.0); Hemoglobin 8.1 g/dl (14.0-18.0); Mean Corpuscular Hemoglobin 25.6 pg (27.0-33.0); Mean Corpuscular Volume 82.3 fL (80.0-98.0); Mean Platelet Volume 10.7 fL (9.4-12.4); Platelet Count 413 X10*3/uL (160-400); Red Blood Count 3.17 X10*6/uL (4.60-5.80); Red Cell Distribution Width 15.6 % (11.0-16.0); White Blood Count 10.9 X10*3/uL (4.8-10.8)
[2022-07-11 07:43] VITALS: BP 110/52; PULSE 76; RESP 17; TEMP 37.3; O2SAT 90
[2022-07-11 07:53] LABS: Anion Gap 14 (12-20); Blood Urea Nitrogen 52 mg/dL (9-16); Calcium 8.8 mg/dL (8.4-10.2); Carbon Dioxide 27 mmol/L (22-29); Chloride 101 mmol/L (96-108); Estimated Glomerular Filt Rate 31; Glucose Fasting 155 mg/dL (60-99); Potassium 4.1 mmol/L (3.3-5.1); Sodium 138 mmol/L (135-145)
[2022-07-11] MEDS: Aspirin Enteric Coated 81 MG TABLET.DR PO (07:55)
[2022-07-11] MEDS: Empagliflozin 10 MG TABLET PO (07:56)
[2022-07-11] MEDS: Furosemide 40 MG TABLET PO (07:56)
[2022-07-11] MEDS: Metoprolol Succinate ER 50 MG TAB.ER.24H PO (07:56)
[2022-07-11] MEDS: hydrALAZINE HCl 50 MG TABLET PO (07:57)
[2022-07-11] MEDS: Losartan Potassium 50 MG TABLET PO (07:57)
[2022-07-11] MEDS: Cholecalciferol (Vitamin D3) 25 MCG TABLET PO (08:00)
[2022-07-11] MEDS: Morphine Sulfate 4 MG/ML CARTRIDGE 3 MG IVPUSH (10:36)
--- NOTE | 2022-07-11 11:19 | P.PNIM_ITS ---
Subjective Subjective Date of Service: 07/11/22 Interval History: feeling better Physical Exam Vital Signs: Vital Signs: Last Vital Signs Temp 99.1 F 07/11/22 07:43 Pulse 76 07/11/22 07:43 Resp 17 07/11/22 07:43 BP 110/52 L 07/11/22 07:43 Pulse Ox 90 L 07/11/22 07:43 O2 Del Method 07/11/22 07:43 O2 Flow Rate 8 07/08/22 15:03 BMI result Body Mass Index 25.8 General: AO X 3, no acute distress Resp: Crackles RLL, no accessory muscles used CVS: S1,S2,RRR GI: soft, non tender, non distended Neuro: motor grossly intact, alert Psych: appropriate affect, appropriate insight Objective Data Active Medications Acetaminophen (Acetaminophen 325 Mg Tablet) 650 mg PO Q6H PRN PRN Reason: Pain, Mild (Pain Scale 1-3) Last Admin: 07/10/22 06:01 Dose: 650 mg Documented By: IRON Amlodipine Besylate (Amlodipine Besylate 10 Mg Tablet) 10 mg PO BEDTIME [facility]; Protocol Last Admin: 07/10/22 19:51 Dose: 10 mg Documented By: HOUSTON Aspirin (Aspirin Enteric Coated 81 Mg Tablet.Dr) 81 mg PO DAILY [facility] Last Admin: 07/11/22 07:55 Dose: 81 mg Documented By: GIBRAN Atorvastatin Calcium (Atorvastatin Calcium 80 Mg Tablet) 80 mg PO BEDTIME [facility] Last Admin: 07/10/22 19:51 Dose: 80 mg Documented By: HOUSTON Diphenhydramine HCl (Diphenhydramine Hcl 50 Mg/Ml Vial) 25 mg IVPUSH Q6H PRN PRN Reason: Allergic Reaction Last Admin: 07/11/22 10:41 Dose: 25 mg Documented By: GIBRAN Empagliflozin (Empagliflozin 10 Mg Tablet) 10 mg PO DAILY [facility] Last Admin: 07/11/22 07:56 Dose: 10 mg Documented By: GIBRAN Enoxaparin Sodium (Enoxaparin Sodium 30 Mg/0.3 Ml Syringe) 30 mg SUBCUT Q24H [facility] Last Admin: 07/10/22 17:06 Dose: 30 mg Documented By: FREDDIE Furosemide (Furosemide 40 Mg Tablet) 40 mg PO DAILY [facility]; Protocol Last Admin: 07/11/22 07:56 Dose: 40 mg Documented By: GIBRAN Hydralazine HCl (Hydralazine Hcl 50 Mg Tablet) 50 mg PO BID [facility]; Protocol Last Admin: 07/11/22 07:57 Dose: 50 mg Documented By: GIBRAN Levofloxacin (Levaquin) 500 mg in 100 mls @ 100 mls/hr IV Q48H [facility] Last Infusion: 07/09/22 17:37 Dose: 0 mls/hr Documented By: LOVELY Ceftriaxone Sodium 1 gm/ (Sodium Chloride) 50 mls @ 100 mls/hr IV Q24H [facility] Last Infusion: 07/10/22 14:02 Dose: 0 mls/hr Documented By: FREDDIE Insulin Glargine (Insulin Glargine,Hum.Rec.Anlog 100 Unit/Ml 10 Ml Vial) 10 unit SUBCUT BEDTIME [facility] Last Admin: 07/10/22 19:54 Dose: 10 unit Documented By: HOUSTON Insulin Human Lispro (Insulin Lispro 100 Unit/Ml 3 Ml Vial) 0 unit SUBCUT QIDACHS [facility]; Protocol Last Admin: 07/11/22 08:04 Dose: Not Given Documented By: GIBRAN Non-Admin Reason: No Insulin Coverage Losartan Potassium (Losartan Potassium 50 Mg Tablet) 50 mg PO DAILY [facility]; Protocol Last Admin: 07/11/22 07:57 Dose: 50 mg Documented By: GIBRAN Metoprolol Succinate (Metoprolol Succinate Er 50 Mg Tab.Er.24h) 50 mg PO DAILY [facility]; Protocol Last Admin: 07/11/22 07:56 Dose: 50 mg Documented By: GIBRAN Morphine Sulfate (Morphine Sulfate 4 Mg/Ml Cartridge) 3 mg IVPUSH Q4H PRN; Protocol PRN Reason: Pain, Severe (Pain Scale 7-10) Last Admin: 07/11/22 10:36 Dose: 3 mg Documented By: GIBRAN Omeprazole (Omeprazole 20 Mg Capsule.) 20 mg PO DAILY@0630 [facility] Last Admin: 07/11/22 05:00 Dose: 20 mg Documented By: HOUSTON Ondansetron HCl (Ondansetron Hcl 4 Mg/2 Ml Vial) 4 mg IVPUSH Q8H PRN PRN Reason: Nausea and Vomiting Ondansetron HCl (Ondansetron Hcl 4 Mg/2 Ml Vial) 4 mg IVPUSH ONCE PRN PRN Reason: Nausea and Vomiting Oxycodone HCl (Oxycodone Hcl Immed Release 5 Mg Tablet) 5 mg PO Q4H PRN PRN Reason: Pain, Severe (Pain Scale 7-10) Last Admin: 07/11/22 07:56 Dose: 5 mg Documented By: GIBRAN Sodium Chloride (0.9 % Sodium Chloride Flush 3 Ml Syringe) 3 ml IVFLUSH QSHIFT [facility] Last Admin: 07/11/22 07:58 Dose: 3 ml Documented By: GIBRAN Vitamin D (Cholecalciferol (Vitamin D3) 25 Mcg Tablet) 25 mcg PO DAILY [facility] Last Admin: 07/11/22 08:00 Dose: 25 mcg Documented By: GIBRAN Labs 07/11/22 06:49 07/11/22 06:49 Labs: Laboratory Results - last 24 hr 07/10/22 07/10/22 07/11/22 17:01 19:39 06:49 MCV MCH MCHC RDW Plt Count MPV Absolute Nucleated RBC Nucleated RBC % (auto) Anion Gap 14 Estim Creat Clear Calc 25.0 Estimated GFR 31 POC Glucose 197 H 207 H Fasting Glucose 155 H Calcium 8.8 07/11/22 07/11/22 06:49 07:33 MCV 82.3 MCH 25.6 L MCHC 31.0 RDW 15.6 Plt Count 413 H MPV 10.7 Absolute Nucleated RBC 0.000 Nucleated RBC % (auto) 0.0 Anion Gap Estim Creat Clear Calc Estimated GFR POC Glucose 148 H Fasting Glucose Calcium Assessment and Plan (1) Diabetic ulcer of right great toe: Status: Acute Assessment and Plan: An 81 years old male with PMH of COPD, CVA, HTN, diabetes, dementia, HLD among o thers who presented to the hospital with right toe nonhealing ulcer. 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 POD 2 no need for further abx acute hypoxic respiratory failure due to RLL pneumonia and acute on chronic diastolic chf back on po lasix, on room air rocephin, levaquin CKD III monitor Type 2 diabetes SSI, POC Continue Lantus Diabetic diet Hypertension Continue amlodipine, hydralazine and losartan HLD Continue statin DVT PPX Lovenox reason for continued hospitalization:placement (2) PAD (peripheral artery disease): Status: Acute (3) Osteomyelitis: Status: Acute Time Spent With Patient Time: Total time managing care of this patient today ____ minutes. Quality Stroke Does the patient have a stroke diagnosis?: No VTE Prior VTE?: No VTE Risk Level:: Medical - moderate - high VTE Device Contraindication: Treatment Not Indicated VTE Drug Contraindication: N/A - Med Ordered
--- NOTE | 2022-07-11 11:25 | MHC.CM.PN ---
PT SON, PIEDAD CALLED TO SEE WHAT TIME PT WOULD BE DISCHARGING HE INDICATED HE WOULD NOT BE ABLE TO ASSIST PT AFTER 1300 HE THEN SAID HE WOULD BE HERE AT 1100 TO [place] [employer] PT AND WANTED HIM TO BE DOWNSTAIRS WHEN PT WAS BROUGHT TO CAR, HE C/O PAIN. SON THEN STATED HE COULD NOT BRING HIM HOME AND WANTS HIM TO GO TO STR CM EXPLAINED PT CANNOT GO TO STR FOR PAIN ALONE AND HIS FUNCTIONAL ABILITIES HAVE NOT CHANGED PTS SON INDICATED HE WILL BRING HIM TO THE ED FOR PLACEMENT ED CM MADE AWARE
[2022-07-12 11:51] LABS: Anion Gap 14 (12-20); Blood Urea Nitrogen 55 mg/dL (9-16); Calcium 8.9 mg/dL (8.4-10.2); Carbon Dioxide 28 mmol/L (22-29); Chloride 100 mmol/L (96-108); Creatinine Clr Calc Pharmacy 27.9; Estimated Glomerular Filt Rate 35; Glucose Fasting 215 mg/dL (60-99); Potassium 3.8 mmol/L (3.3-5.1); Sodium 138 mmol/L (135-145)
== END 2022-07-11 11:10 | disposition home health service (06) | DRG 616 ==
LOC: HO.ED 11:50 → HO.EDOVER 15:36 → HO.S3 16:02
PROVIDERS: Physician Assistant; Surgery Vascular Surgery; Admitting Provider Student in an Organized Health Care Education/Training Program; Emergency Provider Emergency Medicine; PCP Internal Medicine; Visit Provider Internal Medicine
PROC: 0Y6P0Z0 Detachment at Right 1st Toe, Complete, Open Approach (ICD-10-PCS; principal; 2022-07-08 14:30)
DX: E11.621 Type 2 diabetes mellitus with foot ulcer (principal); I50.33 Acute on chronic diastolic (congestive) heart failure; J18.9 Pneumonia, unspecified organism; J96.01 Acute respiratory failure with hypoxia; M86.171 Other acute osteomyelitis, right ankle and foot; M86.671 Other chronic osteomyelitis, right ankle and foot; I13.0 Hypertensive heart and chronic kidney disease with heart failure and stage 1 through stage 4 chronic kidney disease, or unspecified chronic kidney disease; E78.5 Hyperlipidemia, unspecified; N18.30 Chronic kidney disease, stage 3 unspecified; E11.22 Type 2 diabetes mellitus with diabetic chronic kidney disease; E11.69 Type 2 diabetes mellitus with other specified complication; L97.519 Non-pressure chronic ulcer of other part of right foot with unspecified severity; F03.90 Unspecified dementia, unspecified severity, without behavioral disturbance, psychotic disturbance, mood disturbance, and anxiety; B96.5 Pseudomonas (aeruginosa) (mallei) (pseudomallei) as the cause of diseases classified elsewhere; Z20.822 Contact with and (suspected) exposure to COVID-19; Z85.118 Personal history of other malignant neoplasm of bronchus and lung; E11.51 Type 2 diabetes mellitus with diabetic peripheral angiopathy without gangrene; Z86.73 Personal history of transient ischemic attack (TIA), and cerebral infarction without residual deficits; Z87.891 Personal history of nicotine dependence; Z79.4 Long term (current) use of insulin; Z79.82 Long term (current) use of aspirin; Z79.899 Other long term (current) drug therapy
CPT/HCPCS: 36415; 71045; 73630; 80048; 80076; 80202; 81001; 82565; 82947; 83605; 83690; 83735; 83880; 85025; 85027; 85610; 85652; 86140; 87040; 87070; 87077; 87186; 87205; 87635; 88305; 88311; 93005; 93923; 93925; 99285; J0131; J0696; J1170; J1200; J1650; J1940; J1956; J2270; J2370; J2405; J2795; J3370

== ENCOUNTER 2022-07-11 11:25 | Emergency (ER) | payer OTHER, SELFPAY ==
--- NOTE | ~2022-07-11 | XR_ITS ---
EXAMINATION: XR FOOT, RIGHT CLINICAL INFORMATION: Status post recent first digit amputation COMPARISON: 07/03/2022 TECHNIQUE: AP, lateral, and oblique views of the right foot. FINDINGS: Since the prior study, the phalanges of the first toe has been removed. The remaining metatarsal appears unremarkable without bony destructive changes. Gas is present in the soft tissues. Marked vascular calcifications. No fractures. XR/XR foot RT min 3V IMPRESSION: Interval removal of phalanges of the first toe. No evidence of osteomyelitis.
--- NOTE | 2022-07-11 12:27 | ED.EXTPRO ---
HPI - Extremity Problem General Chief complaint: General Medical <AKIKO Wheeler - Last Filed: 07/11/22 12:34> Stated complaint: pain in foot from recent surgery <AKIKO Wheeler - Last Filed: 07/11/22 12:34> Time Seen by Provider: 07/11/22 14:40 <AKIKO Wheeler - Last Filed: 07/11/22 12:34> History of Present Illness HPI Narrative: 81-year-old male with diabetes presents with severe right foot pain. Patient had a recent right great toe amputation. He was treated with antibiotics and discharged earlier today. Patient's pain is severe it does not radiate. Pain is sharp aching constant. It is worse with ambulation or palpation. Denies any fevers or chills. He was discharged earlier today to go home where they are unable to take care of him. He was brought back to the emergency department. Patient denies any new symptoms such as fever, chills nausea, vomiting, cough or shortness of breath. <Howard Caceres MD - Last Filed: 07/11/22 16:02> Related Data Home medications: Home Medications Medication Instructions Recorded Confirmed amlodipine 10 mg tablet 10 mg PO BEDTIME 03/07/21 07/11/22 aspirin 81 mg tablet,delayed 81 mg PO DAILY 03/07/21 07/11/22 release atorvastatin 80 mg tablet 80 mg PO BEDTIME 03/07/21 07/11/22 omeprazole 20 mg capsule,delayed 20 mg PO DAILY@0630 03/07/21 07/11/22 release hydralazine 50 mg tablet 50 mg PO BID 07/07/21 07/11/22 metoprolol succinate 50 mg 50 mg PO DAILY 07/07/21 07/11/22 tablet,extended release 24 hr cholecalciferol (vitamin D3) 25 1 tab PO DAILY 01/17/22 07/11/22 mcg (1,000 unit) tablet insulin glargine 100 unit/mL 15 unit subcut BEDTIME 01/17/22 07/11/22 subcutaneous solution (Lantus U-100 Insulin) empagliflozin 10 mg tablet 1 tab PO DAILY 01/31/22 07/11/22 (Jardiance) losartan 50 mg tablet 50 mg PO DAILY 01/31/22 07/11/22 furosemide 40 mg tablet 1 tab QAM 07/03/22 07/11/22 Previous Rx's Medication Instructions Recorded compr.stocking,knee,long,large #12 ea 08/31/21 compress.stocking,knee,reg,lrg #2 ea 09/23/21 oxycodone 5 mg tablet 5 mg PO Q4H PRN Pain, Severe (Pain 07/10/22 Scale 7-10) #15 tabs <AKIKO Wheeler - Last Filed: 07/11/22 12:34> Allergies/Adverse reactions: Allergies Allergy/AdvReac Type Severity Reaction Status Date / Time Penicillins [PENICILLINS] Allergy Intermediate RASH Verified 07/11/22 12:27 <AKIKO Wheeler - Last Filed: 07/11/22 12:34> Review of Systems Review of Systems: Yes all other systems are reviewed and are negative <Howard Caceres MD - Last Filed: 07/11/22 16:02> Constitutional: Constitutional: Reports no additional constitutional complaints <Howard Caceres MD - Last Filed: 07/11/22 16:02> Eyes: Eyes: Reports no additional eye complaints <Howard Caceres MD - Last Filed: 07/11/22 16:02> ENT: Reports system reviewed and no additional complaints, except as documented <Howard Caceres MD - Last Filed: 07/11/22 16:02> Cardiovascular: Cardiovascular: Reports no additional cardiovascular complaints <Howard Caceres MD - Last Filed: 07/11/22 16:02> Respiratory: Respiratory: Reports no additional respiratory complaints <Howard Caceres MD - Last Filed: 07/11/22 16:02> Gastrointestinal: Gastrointestinal: Reports no additional gastrointestinal complaints <Howard Caceres MD - Last Filed: 07/11/22 16:02> Genitourinary: Genitourinary: Reports no additional male genitourinary complaints <Howard Caceres MD - Last Filed: 07/11/22 16:02> Musculoskeletal: Musculoskeletal: Reports no additional musculoskeletal complaints and Reports arthralgias <Howard Caceres MD - Last Filed: 07/11/22 16:02> Integumentary/Breasts: Skin/Breast: Reports system reviewed and no additional complaints, except as docu <Howard Caceres MD - Last Filed: 07/11/22 16:02> Neurologic: Reports system reviewed and no additional complaints, except as documented <Howard Caceres MD - Last Filed: 07/11/22 16:02> Psychiatric: Psychiatric: Reports no additional psychiatric complaints <Howard Caceres MD - Last Filed: 07/11/22 16:02> Endocrine: Endocrine: Reports no additional endocrine complaints <Howard Caceres MD - Last Filed: 07/11/22 16:02> Hematologic/Lymphatic: Hematologic/Lymphatic: Reports no additional hematologic/lymphatic complaints <Howard Caceres MD - Last Filed: 07/11/22 16:02> Allergic/Immunologic: Allergic/Immunologic: Reports no additional allergic/immunologic complaints <Howard Caceres MD - Last Filed: 07/11/22 16:02> [facility] Past Medical History Medical History: Medical History Adenocarcinoma of right lung (~2020) COPD (chronic obstructive pulmonary disease) Dementia Diabetes Former smoker, stopped smoking in distant past History of CVA (cerebrovascular accident) (~07/2020) HTN (hypertension) Hyperlipidemia Pneumonia <AKIKO Wheeler - Last Filed: 07/11/22 12:34> Surgical History: Surgical History History of lung biopsy (~10/2020) <AKIKO Wheeler - Last Filed: 07/11/22 12:34> Social History Social History: Social History Household Members: Family Household Members Other:: step-son spends the night frequently Housing: Apartment Do you presently have visiting nurse or other home services: No Alcohol intake: never Patient Tobacco Use Status: Former Tobacco user Advance Directives: Yes Advance Directives on File: Yes Advance Directives Date on File: 05/24/21 service: No Current occupational status: retired <AKIKO Wheeler - Last Filed: 07/11/22 12:34> Physical Exam Vital Signs: Vital Signs: Last Vital Signs Temp 99.8 F 07/11/22 14:08 Pulse 70 07/11/22 14:08 Resp 18 07/11/22 14:08 BP 116/39 L 07/11/22 14:08 Pulse Ox 95 07/11/22 14:08 O2 Del Method 07/11/22 14:08 BMI result Body Mass Index 29.1 <AKIKO Wheeler - Last Filed: 07/11/22 12:34> Vital Signs: Last Vital Signs Temp 99.8 F 07/11/22 14:08 Pulse 70 07/11/22 14:08 Resp 18 07/11/22 14:08 BP 116/39 L 07/11/22 14:08 Pulse Ox 95 07/11/22 14:08 O2 Del Method 07/11/22 14:08 BMI result Body Mass Index 29.1 <Howard Caceres MD - Last Filed: 07/11/22 16:02> Const: General: cooperative, healthy appearing and comfortable <Howard Caceres MD - Last Filed: 07/11/22 16:02> HEENT: Head: Yes normal to inspection <Howard Caceres MD - Last Filed: 07/11/22 16:02> Eyes: General: appearance normal, both eyes and all related structures <Howard Caceres MD - Last Filed: 07/11/22 16:02> Resp: Effort & Inspection: normal respiratory effort <Howard Caceres MD - Last Filed: 07/11/22 16:02> Auscultation: clear to auscultation bilaterally <Howard Caceres MD - Last Filed: 07/11/22 16:02> Cardio: Rate: regular rate <Howard Caceres MD - Last Filed: 07/11/22 16:02> Rhythm: regular rhythm <Howard Caceres MD - Last Filed: 07/11/22 16:02> Skin: Other: Right great toe ray amputation, no purulent drainage, surrounding erythema <Howard Caceres MD - Last Filed: 07/11/22 16:02> Neuro: General: no focal motor deficits <Howard Caceres MD - Last Filed: 07/11/22 16:02> Course Course Course Narrative: RME - 81 yo Setswana speaking male with history of dementia, CKD, PAD, HFpEF, COPD, CVA, history of DM with diabetic ulcers, history of osteomyelitis who presents to the ER for evaluation of right foot pain s/p great toe amputation on 07/08 due to osteo and just discharged yesterday. He is on antibiotics currently. He is a poor historian. Denies fevers at home. Per review of d/c summary he was sent home with PRN oxycodone but [employer] review does not indicate he picked it up. His family dropped him off here and left. Wound is wrapped in kerlex. Given he is a poor historian will get XR and basic labs. No fever, tachycardia to suggest sepsis. <AKIKO Wheeler - Last Filed: 07/11/22 12:34> Reevaluation(s) Reevaluation #1: Patient was apparently discharged earlier today. Patient cannot safely go home at this time. Short-term rehabilitation has been recommended. I would still recommend intravenous antibiotics at this point however, patient has deferred this at this time. He would rather not get these medications. <Howard Caceres MD - Last Filed: 07/11/22 16:02> Time: 15:43 <Howard Caceres MD - Last Filed: 07/11/22 16:02> Reevaluation #2: Placing patient in for persistent observation pending case management. Patient will ultimately require short-term rehabilitation. Order doxycycline which he had been taken off as his lab work looks slightly worse than previous. <Howard Caceres MD - Last Filed: 07/11/22 16:02> Time: 15:56 <Howard Caceres MD - Last Filed: 07/11/22 16:02> Medications Administered Generic Name Dose Route Start Last Admin Trade Name Freq PRN Reason Stop Dose Admin Vancomycin HCl 2,000 mg in 520 mls @ 260 mls/hr 07/11/22 15:15 07/11/22 15:52 Vancomycin/Ns IV 07/11/22 17:14 Not Given ONCE ONE Discontinued Medications Generic Name Dose Route Start Last Admin Trade Name Freq PRN Reason Stop Dose Admin Cefepime HCl 1 gm/ Sodium 50 mls @ 100 mls/hr 07/11/22 15:07 07/11/22 15:51 Chloride IV 07/11/22 15:36 Not Given ONCE ONE <AKIKO Wheeler - Last Filed: 07/11/22 12:34> Medications Administered Generic Name Dose Route Start Last Admin Trade Name Freq PRN Reason Stop Dose Admin Vancomycin HCl 2,000 mg in 520 mls @ 260 mls/hr 07/11/22 15:15 07/11/22 15:52 Vancomycin/Ns IV 07/11/22 17:14 Not Given ONCE ONE Discontinued Medications Generic Name Dose Route Start Last Admin Trade Name Zheng PRN Reason Stop Dose Admin Cefepime HCl 1 gm/ Sodium 50 mls @ 100 mls/hr 07/11/22 15:07 07/11/22 15:51 Chloride IV 07/11/22 15:36 Not Given ONCE ONE <Howard Caceres MD - Last Filed: 07/11/22 16:02> Medical Decision Making Medical Decision Making [facility] Narrative: 81-year-old male presents for possible placement to short-term rehabilitation. Patient was discharged earlier today after ray amputation. Patient is unable to ambulate at home and family is unable to provide care for him. Today is examination revealed continued erythematous changes to the foot. Lab work will be ordered, x-ray, physical therapy and case management will get involved. <Howard Caceres MD - Last Filed: 07/11/22 16:02> Differential Diagnosis Differential Diagnoses: The differential diagnosis associated with the presentation includes (Neuropathic pain, cellulitis, abscess, musculoskeletal pain) <Howard Caceres MD - Last Filed: 07/11/22 16:02> Admission/Observation Consideration of admission/observation: Escalation of care including admission/observation considered <Howard Caceres MD - Last Filed: 07/11/22 16:02> Lab Data [facility] Lab Attestation statement: I reviewed the patient's lab results. <Howard Caceres MD - Last Filed: 07/11/22 16:02> Result Diagrams: 07/11/22 12:47 07/11/22 12:47 <AKIKO Wheeler - Last Filed: 07/11/22 12:34> Labs: Lab Results 07/11/22 07/11/22 07/11/22 Range/Units 12:41 12:47 12:47 WBC 12.6 H (4.8-10.8) X10*3/uL RBC 3.58 L (4.60-5.80) X10*6/uL Hgb 9.2 L (14.0-18.0) g/dl Hct 29.7 L (42.0-52.0) % MCV 83.0 (80.0-98.0) fL MCH 25.7 L (27.0-33.0) pg MCHC 31.0 (31.0-36.0) g/dl RDW 15.7 (11.0-16.0) % Plt Count 476 H (160-400) X10*3/uL MPV 10.2 (9.4-12.4) fL Immature Gran % (Auto) 0.4 (0.0-0.4) % Neut % (Auto) 68.1 (45-73) % Lymph % (Auto) 17.7 L (20-40) % [place] % (Auto) 11.6 H (2-11) % Eos % (Auto) 1.7 (0-4) % Baso % (Auto) 0.5 (0-2) % Lymph # (Auto) 2.2 (1.2-4.9) X10*3/uL [place] # (Auto) 1.5 H (0.1-1.2) X10*3/uL Eos # (Auto) 0.2 (0.0-0.4) X10*3/uL Baso # (Auto) 0.1 (0.0-0.2) X10*3/uL Abs Immat Gran (auto) 0.05 H (0.00-0.03) X10*3/uL Absolute Neuts (auto) 8.6 H (2.0-8.3) x10*3/uL Absolute Nucleated RBC 0.000 (0.0-0.012) X10*3/uL Nucleated RBC % (auto) 0.0 (0.0-0.2) /100WBC ESR 108 H (0-15) MM/HR Sodium 138 (135-145) mmol/L Potassium 4.5 (3.3-5.1) mmol/L Chloride 100 (96-108) mmol/L Carbon Dioxide 26 (22-29) mmol/L Anion Gap 17 (12-20) BUN 55 H (9-16) mg/dL Creatinine 2.21 H (0.5-1.4) mg/dL Estim Creat Clear Calc 25.0 Estimated GFR 29 Random Glucose 200 H (60-115) mg/dL Calcium 9.0 (8.4-10.2) mg/dL Magnesium 2.7 H (1.6-2.6) mg/dL Total Bilirubin 0.4 (0.0-1.0) mg/dL Direct Bilirubin < 0.2 (0.0-0.5) mg/dL AST 46 H (5-37) U/L ALT 18 (0-40) U/L Alkaline Phosphatase 133 H (39-117) U/L C-Reactive Protein 20.73 H (< or = 0.50) mg/dL Total Protein 7.2 (6.5-8.0) g/dL Albumin 3.4 L (3.5-5.0) g/dL Influenza Type A (PCR) (Negative) Influenza Type B (PCR) (Negative) RSV RNA Qual (PCR) (Negative) SARS-CoV-2 RNA (RT-PCR) (Negative) 07/11/22 Range/Units 14:17 WBC (4.8-10.8) X10*3/uL RBC (4.60-5.80) X10*6/uL Hgb (14.0-18.0) g/dl Hct (42.0-52.0) % MCV (80.0-98.0) fL MCH (27.0-33.0) pg MCHC (31.0-36.0) g/dl RDW (11.0-16.0) % Plt Count (160-400) X10*3/uL MPV (9.4-12.4) fL Immature Gran % (Auto) (0.0-0.4) % Neut % (Auto) (45-73) % Lymph % (Auto) (20-40) % [place] % (Auto) (2-11) % Eos % (Auto) (0-4) % Baso % (Auto) (0-2) % Lymph # (Auto) (1.2-4.9) X10*3/uL [place] # (Auto) (0.1-1.2) X10*3/uL Eos # (Auto) (0.0-0.4) X10*3/uL Baso # (Auto) (0.0-0.2) X10*3/uL Abs Immat Gran (auto) (0.00-0.03) X10*3/uL Absolute Neuts (auto) (2.0-8.3) x10*3/uL Absolute Nucleated RBC (0.0-0.012) X10*3/uL Nucleated RBC % (auto) (0.0-0.2) /100WBC ESR (0-15) MM/HR Sodium (135-145) mmol/L Potassium (3.3-5.1) mmol/L Chloride (96-108) mmol/L Carbon Dioxide (22-29) mmol/L Anion Gap (12-20) BUN (9-16) mg/dL Creatinine (0.5-1.4) mg/dL Estim Creat Clear Calc Estimated GFR Random Glucose (60-115) mg/dL Calcium (8.4-10.2) mg/dL Magnesium (1.6-2.6) mg/dL Total Bilirubin (0.0-1.0) mg/dL Direct Bilirubin (0.0-0.5) mg/dL AST (5-37) U/L ALT (0-40) U/L Alkaline Phosphatase (39-117) U/L C-Reactive Protein (< or = 0.50) mg/dL Total Protein (6.5-8.0) g/dL Albumin (3.5-5.0) g/dL Influenza Type A (PCR) NEGATIVE (Negative) Influenza Type B (PCR) NEGATIVE (Negative) RSV RNA Qual (PCR) NEGATIVE (Negative) SARS-CoV-2 RNA (RT-PCR) NEGATIVE (Negative) <AKIKO Wheeler - Last Filed: 07/11/22 12:34> Lab Results 07/11/22 07/11/22 07/11/22 Range/Units 12:41 12:47 12:47 WBC 12.6 H (4.8-10.8) X10*3/uL RBC 3.58 L (4.60-5.80) X10*6/uL Hgb 9.2 L (14.0-18.0) g/dl Hct 29.7 L (42.0-52.0) % MCV 83.0 (80.0-98.0) fL MCH 25.7 L (27.0-33.0) pg MCHC 31.0 (31.0-36.0) g/dl RDW 15.7 (11.0-16.0) % Plt Count 476 H (160-400) X10*3/uL MPV 10.2 (9.4-12.4) fL Immature Gran % (Auto) 0.4 (0.0-0.4) % Neut % (Auto) 68.1 (45-73) % Lymph % (Auto) 17.7 L (20-40) % [place] % (Auto) 11.6 H (2-11) % Eos % (Auto) 1.7 (0-4) % Baso % (Auto) 0.5 (0-2) % Lymph # (Auto) 2.2 (1.2-4.9) X10*3/uL [place] # (Auto) 1.5 H (0.1-1.2) X10*3/uL Eos # (Auto) 0.2 (0.0-0.4) X10*3/uL Baso # (Auto) 0.1 (0.0-0.2) X10*3/uL Abs Immat Gran (auto) 0.05 H (0.00-0.03) X10*3/uL Absolute Neuts (auto) 8.6 H (2.0-8.3) x10*3/uL Absolute Nucleated RBC 0.000 (0.0-0.012) X10*3/uL Nucleated RBC % (auto) 0.0 (0.0-0.2) /100WBC ESR 108 H (0-15) MM/HR Sodium 138 (135-145) mmol/L Potassium 4.5 (3.3-5.1) mmol/L Chloride 100 (96-108) mmol/L Carbon Dioxide 26 (22-29) mmol/L Anion Gap 17 (12-20) BUN 55 H (9-16) mg/dL Creatinine 2.21 H (0.5-1.4) mg/dL Estim Creat Clear Calc 25.0 Estimated GFR 29 Random Glucose 200 H (60-115) mg/dL Calcium 9.0 (8.4-10.2) mg/dL Magnesium 2.7 H (1.6-2.6) mg/dL Total Bilirubin 0.4 (0.0-1.0) mg/dL Direct Bilirubin < 0.2 (0.0-0.5) mg/dL AST 46 H (5-37) U/L ALT 18 (0-40) U/L Alkaline Phosphatase 133 H (39-117) U/L C-Reactive Protein 20.73 H (< or = 0.50) mg/dL Total Protein 7.2 (6.5-8.0) g/dL Albumin 3.4 L (3.5-5.0) g/dL Influenza Type A (PCR) (Negative) Influenza Type B (PCR) (Negative) RSV RNA Qual (PCR) (Negative) SARS-CoV-2 RNA (RT-PCR) (Negative) 07/11/22 Range/Units 14:17 WBC (4.8-10.8) X10*3/uL RBC (4.60-5.80) X10*6/uL Hgb (14.0-18.0) g/dl Hct (42.0-52.0) % MCV (80.0-98.0) fL MCH (27.0-33.0) pg MCHC (31.0-36.0) g/dl RDW (11.0-16.0) % Plt Count (160-400) X10*3/uL MPV (9.4-12.4) fL Immature Gran % (Auto) (0.0-0.4) % Neut % (Auto) (45-73) % Lymph % (Auto) (20-40) % [place] % (Auto) (2-11) % Eos % (Auto) (0-4) % Baso % (Auto) (0-2) % Lymph # (Auto) (1.2-4.9) X10*3/uL [place] # (Auto) (0.1-1.2) X10*3/uL Eos # (Auto) (0.0-0.4) X10*3/uL Baso # (Auto) (0.0-0.2) X10*3/uL Abs Immat Gran (auto) (0.00-0.03) X10*3/uL Absolute Neuts (auto) (2.0-8.3) x10*3/uL Absolute Nucleated RBC (0.0-0.012) X10*3/uL Nucleated RBC % (auto) (0.0-0.2) /100WBC ESR (0-15) MM/HR Sodium (135-145) mmol/L Potassium (3.3-5.1) mmol/L Chloride (96-108) mmol/L Carbon Dioxide (22-29) mmol/L Anion Gap (12-20) BUN (9-16) mg/dL Creatinine (0.5-1.4) mg/dL Estim Creat Clear Calc Estimated GFR Random Glucose (60-115) mg/dL Calcium (8.4-10.2) mg/dL Magnesium (1.6-2.6) mg/dL Total Bilirubin (0.0-1.0) mg/dL Direct Bilirubin (0.0-0.5) mg/dL AST (5-37) U/L ALT (0-40) U/L Alkaline Phosphatase (39-117) U/L C-Reactive Protein (< or = 0.50) mg/dL Total Protein (6.5-8.0) g/dL Albumin (3.5-5.0) g/dL Influenza Type A (PCR) NEGATIVE (Negative) Influenza Type B (PCR) NEGATIVE (Negative) RSV RNA Qual (PCR) NEGATIVE (Negative) SARS-CoV-2 RNA (RT-PCR) NEGATIVE (Negative) <Hwoard Caceres MD - Last Filed: 07/11/22 16:02> Independent Interpretation I performed an independent interpretation of an: Plain X-Ray (Right foot post ray amputation, no definitive evidence of osteomyelitis) <Howard Caceres MD - Last Filed: 07/11/22 16:02> External Record Review External record reviewed: Inpatient record <Howard Caceres MD - Last Filed: 07/11/22 16:02> Prescription Management I considered prescription management with: Pain Medication and Antibiotic <Howard Caceres MD - Last Filed: 07/11/22 16:02> Chronic Conditions Patient?s care impacted by: Diabetes <Howard Caceres MD - Last Filed: 07/11/22 16:02> Discharge Plan Discharge Clinical Impression: Cellulitis of foot, left, History of complete ray amputation of right great toe <AKIKO Wheeler - Last Filed: 07/11/22 12:34> Patient Disposition: Still a Patient <AKIKO Wheeler - Last Filed: 07/11/22 12:34> Prescriptions: No Action insulin glargine [Lantus U-100 Insulin] 100 unit/mL solution 15 unit subcut BEDTIME atorvastatin 80 mg tablet 80 mg PO BEDTIME aspirin 81 mg tablet,delayed release (DR/EC) 81 mg PO DAILY amlodipine 10 mg tablet 10 mg PO BEDTIME omeprazole 20 mg capsule,delayed release(DR/EC) 20 mg PO DAILY@0630 hydralazine 50 mg Tablet 50 mg PO BID metoprolol succinate 50 mg Tablet Extended Release 24 Hr 50 mg PO DAILY cholecalciferol (vitamin D3) 25 mcg (1,000 unit) tablet 1 tab PO DAILY Jardiance 10 mg tablet 1 tab PO DAILY losartan 50 mg tablet 50 mg PO DAILY furosemide 40 mg tablet 1 tab QAM oxycodone 5 mg Tablet 5 mg PO Q4H PRN (Reason: Pain, Severe (Pain Scale 7-10)) Qty: 15 0RF Rx Instructions: Partial Fill upon patient request. (DME) compr.stocking,knee,long,large Misc See Rx Instructions .Route Qty: 12 0RF Rx Instructions: As directed (DME) compress.stocking,knee,reg,lrg Misc See Rx Instructions .Route Qty: 2 0RF Rx Instructions: As directed <AKIKO Wheeler - Last Filed: 07/11/22 12:34>
[2022-07-11 12:28] VITALS: PULSE 73; RESP 18; TEMP 36.3; O2SAT 95; BMI 29.1
[2022-07-11 12:52] LABS: MANUAL DIFF FLAG NO
[2022-07-11 12:55] LABS: Basophils Absolute Auto 0.1 X10*3/uL (0.0-0.2); Basophils Percent Auto 0.5 % (0-2); Eosinophils Absolute Auto 0.2 X10*3/uL (0.0-0.4); Eosinophils Percent Auto 1.7 % (0-4); Hematocrit 29.7 % (42.0-52.0); Hemoglobin 9.2 g/dl (14.0-18.0); Imm Gran Abs Auto 0.05 X10*3/uL (0.00-0.03); Imm Gran Pct Auto 0.4 % (0.0-0.4); Lymphocytes Absolute Auto 2.2 X10*3/uL (1.2-4.9); Lymphocytes Percent Auto 17.7 % (20-40); Mean Corpuscular Hemoglobin 25.7 pg (27.0-33.0); Mean Platelet Volume 10.2 fL (9.4-12.4); Monocytes Absolute Auto 1.5 X10*3/uL (0.1-1.2); Monocytes Percent Auto 11.6 % (2-11); Neutrophils Absolute Auto 8.6 x10*3/uL (2.0-8.3); Neutrophils Percent Auto 68.1 % (45-73); Platelet Count 476 X10*3/uL (160-400); Red Blood Count 3.58 X10*6/uL (4.60-5.80); Red Cell Distribution Width 15.7 % (11.0-16.0); White Blood Count 12.6 X10*3/uL (4.8-10.8)
[2022-07-11 13:12] LABS: Alanine Aminotransferase 18 U/L (0-40); Albumin Level 3.4 g/dL (3.5-5.0); Alkaline Phosphatase 133 U/L (39-117); Anion Gap 17 (12-20); Aspartate Amino Transferase 46 U/L (5-37); Bilirubin Direct < 0.2 mg/dL (0.0-0.5); Bilirubin Total 0.4 mg/dL (0.0-1.0); Blood Urea Nitrogen 55 mg/dL (9-16); C Reactive Protein 20.73 mg/dL (< or = 0.50); Carbon Dioxide 26 mmol/L (22-29); Chloride 100 mmol/L (96-108); Estimated Glomerular Filt Rate 29; Glucose Random 200 mg/dL (60-115); Magnesium 2.7 mg/dL (1.6-2.6); Potassium 4.5 mmol/L (3.3-5.1); Sodium 138 mmol/L (135-145); Total Protein 7.2 g/dL (6.5-8.0)
[2022-07-11 13:47] LABS: Erythrocyte Sedimentation Rate 108 MM/HR (0-15)
[2022-07-11 14:08] VITALS: BP 116/39; PULSE 70; RESP 18; TEMP 37.7; O2SAT 95
[2022-07-11 15:02] LABS: Influenza A PCR NEGATIVE (Negative); Influenza B PCR NEGATIVE (Negative); Resp Syncy Virus RNA Qual PCR NEGATIVE (Negative); SARS COV2 PCR INHOUSE NEGATIVE (Negative)
--- NOTE | 2022-07-11 15:21 | PHA.MEDREC ---
Pharmacy Consult ? Medication Reconciliation Pharmacy has completed the medication reconciliation. Patient was discharged earlier today.
--- NOTE | 2022-07-11 15:23 | PC.NURSE ---
patient refusing IV placement/further lab draw at this time. explained to patient importance of need for IV antibiotics due to infection and need to be admitted to hospital. patient states I don't want to stay here and continues to refuse iv placement.
--- NOTE | 2022-07-11 15:28 | MHC.CM.ED ---
Received case management consult from Germania WHARTON. Patient was discharge from [facility] on 07/11 with step-son Flex. Patient was unable to ambulate. Flex brought patient to the ER to be placed in short term rehab. Work up essentially negative. Physical therapy is recommending short term rehab. Received telephone call from patient's step-daughter/HCP, Ashely. She can be reached via telephone at [phone]. Ashely is upset that she was not contacted in regards to discharge planning. T/W explained Flex stated he was patient's caregiver and would call [facility] case management at 9am to get clinical updates. Patient's HCP is not formally invoked. Ashely states Flex is her brother. He is not patient's caregiver. He lives with patient and his and helps keep an eye on the patient over night. Ashely would like all communication in regards to discharge planning to go through her. Ashely requesting referral to [facility]. Referral made. They are unable to offer a bed. [facility] is 2nd choice. Ashely aware referral will be broadcasted in [facility]. Continue to monitor for d/c needs.
--- NOTE | 2022-07-11 15:30 | MHC.EDTECH ---
I pct went in to draw labs from patient,patient stated everytime he comes to hospital they draw his blood,patients refused all labs and states nobody is taking his blood
[2022-07-11] MEDS: Doxycycline Monohydrate 100 MG CAPSULE PO (16:38)
--- NOTE | 2022-07-11 16:55 | MHC.EDTECH ---
Doctor aware pt refuse blood draw @16:55.
[2022-07-11 18:04] VITALS: BP 114/48; PULSE 78; RESP 20; TEMP 38; O2SAT 94
[2022-07-11] MEDS: Acetaminophen 325 MG TABLET 650 MG PO (18:13)
--- NOTE | 2022-07-11 19:30 | PC.NURSE ---
Assumed care of patient at 1900 - step son at bedside asking this RN what the plan is. This RN informed step son that according to the notes and report given to me by day shift RN, patient will be a PT/CM bed search for short term rehab. Step son is in agreement with this plan. Patient sleeping comfortably at this time in no apparent distress. Will continue to monitor.
[2022-07-11 19:57] VITALS: BP 109/46; PULSE 69; RESP 15; O2SAT 90
--- NOTE | 2022-07-11 20:23 | PC.NURSE ---
patient placed on 2L NC for O2 sats down to 87% while sleeping
[2022-07-11] MEDS: Atorvastatin Calcium 80 MG TABLET PO (21:40)
[2022-07-11] MEDS: Insulin Glargine,Hum.rec.anlog 100 UNIT/ML 10 ML VIAL 15 UNIT SUBCUT (21:40)
[2022-07-11 21:41] VITALS: BP 128/55; PULSE 69; RESP 18; O2SAT 95
[2022-07-11] MEDS: amLODIPine Besylate 10 MG TABLET PO (21:41)
[2022-07-11] MEDS: hydrALAZINE HCl 50 MG TABLET PO (21:41)
--- NOTE | 2022-07-11 21:47 | PC.NURSE ---
patient refusing to keep nasal cannula on. vitals updated, patient is 95% on room air while awake. bed time medications given. warm blanket provided. will continue to monitor closely
[2022-07-12] VITALS (9 sets, daily range): BP systolic 107–161; BP diastolic 46–84; PULSE 60–76; RESP 15–18; TEMP 36.3–36.9; O2SAT 95–98
[2022-07-12] MEDS: oxyCODONE HCl Immed Release 5 MG TABLET PO ×3 (02:03→21:41)
--- NOTE | 2022-07-12 05:51 | PC.NURSE ---
patient sleeping comfortably on stretcher. respirations even and unlabored, in no apparent distress. will continue to monitor
--- NOTE | 2022-07-12 07:26 | PC.NURSE ---
Patient refusing medications at this time.
[2022-07-12] MEDS: Losartan Potassium 50 MG TABLET PO (09:44)
[2022-07-12] MEDS: Aspirin Enteric Coated 81 MG TABLET.DR PO (09:44)
[2022-07-12] MEDS: hydrALAZINE HCl 50 MG TABLET PO (09:44)
[2022-07-12] MEDS: Omeprazole 20 MG CAPSULE.DR PO (09:44)
[2022-07-12] MEDS: Furosemide 40 MG TABLET PO (09:44)
[2022-07-12] MEDS: Metoprolol Succinate ER 50 MG TAB.ER.24H PO (09:44)
[2022-07-12] MEDS: Cholecalciferol (Vitamin D3) 25 MCG TABLET PO (09:44)
--- NOTE | 2022-07-12 12:10 | MHC.CM.PN ---
CM SPOKE TO PTS DAUGHTER, JOLYNN AND PROVIDED UPDATES SHE IS AWARE REFERRALS ARE OUT AND SEVERAL FACILITIES ARE FOLLOWING HOWEVER PT WAS UNABLE TO PARTICIPATE WITH PT YESTERDAY DUE TO PAIN CM WILL UPDATE HER ONCE THERE IS A BED OFFER REFERRAL WILL BE UPDATED ONCE Pt IS ABLE TO PARTICIPATE WITH PT
--- NOTE | 2022-07-12 13:40 | PC.NURSE ---
Patient reporting 10/10 pain to entire body, medicated with PRN 5mg oxycodone.
--- NOTE | 2022-07-12 15:12 | PC.NURSE ---
Dressing to left foot changed. Patient still reporting increased pain, refusing PT at this time.
--- NOTE | 2022-07-12 16:41 | MHC.EDTECH ---
pt refused to change into hospital attire ,vitals sign taken warm blanket given .
[2022-07-12 19:54] LABS: Glucose, Whole Blood 302 mg/dL (60-115)
--- NOTE | 2022-07-12 19:59 | MHC.EDTECH ---
Gave patient a urinal.
--- NOTE | 2022-07-12 21:05 | MHC.EDTECH ---
Put patient on a bedpan. Patient had a b/m. Wiped patient clean and removed bedpan.
--- NOTE | 2022-07-12 21:22 | MHC.EDTECH ---
Pt refuse to put on brad because he said its uncomfortable.
[2022-07-12] MEDS: Atorvastatin Calcium 80 MG TABLET PO (21:41)
[2022-07-12] MEDS: Insulin Glargine,Hum.rec.anlog 100 UNIT/ML 10 ML VIAL 15 UNIT SUBCUT (21:42)
--- NOTE | 2022-07-13 01:06 | PC.NURSE ---
Pt reporting itchiness to R upper extremity and face. rn noted redness, no hives or welts. Pt denies difficulty breathing or swelling to throat. Respirations even and non labored RR 18, pulse 74, oxygen saturation 95 % room air, BP 140/59. will notify .
[2022-07-13] MEDS: oxyCODONE HCl Immed Release 5 MG TABLET PO ×4 (02:11→20:44)
[2022-07-13 02:22] VITALS: TEMP 36.5
--- NOTE | 2022-07-13 02:22 | PC.NURSE ---
Pt Right upper arm noted to be warm to touch and red no fever at this time. Per ED provider pt to receive 25 mg po Benadryl. Site to be monitored.
[2022-07-13] MEDS: diphenhydrAMINE HCL 25 MG CAPSULE PO (02:26)
[2022-07-13 06:26] VITALS: BP 141/65; PULSE 65; RESP 14; TEMP 36.6; O2SAT 95
[2022-07-13 07:15] LABS: Glucose, Whole Blood 122 mg/dL (60-115)
[2022-07-13] MEDS: Omeprazole 20 MG CAPSULE.DR PO (07:41)
[2022-07-13 08:58] VITALS: BP 139/50; PULSE 75; RESP 14; TEMP 36.8; O2SAT 95
[2022-07-13] MEDS: Aspirin Enteric Coated 81 MG TABLET.DR PO (09:42)
[2022-07-13] MEDS: hydrALAZINE HCl 50 MG TABLET PO ×2 (09:42→20:44)
[2022-07-13] MEDS: Furosemide 40 MG TABLET PO (09:43)
[2022-07-13] MEDS: Cholecalciferol (Vitamin D3) 25 MCG TABLET PO (09:43)
[2022-07-13] MEDS: Losartan Potassium 50 MG TABLET PO (09:43)
[2022-07-13] MEDS: Empagliflozin 10 MG TABLET PO (09:43)
[2022-07-13] MEDS: Metoprolol Succinate ER 50 MG TAB.ER.24H PO (09:43)
--- NOTE | 2022-07-13 16:18 | MHC.EDTECH ---
this pct assumed care of pt at 1500 ,pt sleeping .
--- NOTE | 2022-07-13 19:26 | MHC.EDTECH ---
pt had dinner ,ate 100 % ,drank 480 ml fluids ,400 ml out put ,pt was assisted with sponge bath ,bedding change ,warm blanket given.
[2022-07-13 20:00] VITALS: BP 156/58; PULSE 72; RESP 16; TEMP 36.1; O2SAT 96
[2022-07-13] MEDS: Insulin Glargine,Hum.rec.anlog 100 UNIT/ML 10 ML VIAL 15 UNIT SUBCUT (20:44)
[2022-07-13] MEDS: Atorvastatin Calcium 80 MG TABLET PO (20:44)
[2022-07-13] MEDS: amLODIPine Besylate 10 MG TABLET PO (20:44)
--- NOTE | 2022-07-14 | MHC.EDTECH ---
0000 rounding done ,pt trying to get t out of bed ,i told him he is not able to walk ,he started to curse at me ,rn aware ,also his shirt is soiled he refused to change and wear Yifan .
[2022-07-14 06:10] VITALS: BP 123/60; PULSE 69; RESP 18; TEMP 36.9; O2SAT 94
[2022-07-14] MEDS: oxyCODONE HCl Immed Release 5 MG TABLET PO ×3 (06:14→21:31)
[2022-07-14] MEDS: Omeprazole 20 MG CAPSULE.DR PO (06:14)
--- NOTE | 2022-07-14 06:51 | PC.NURSE ---
report received from AMELIA Goodrich pt alert and oriented pt refuse to changed into hospital gown, only allowed me to put incontinent pads under him breathing equally unlabored report given to AMELIA Kincaid
[2022-07-14 07:30] LABS: Glucose, Whole Blood 159 mg/dL (60-115)
--- NOTE | 2022-07-14 07:36 | PC.NURSE ---
meal tray provided
[2022-07-14] MEDS: Metoprolol Succinate ER 50 MG TAB.ER.24H PO (09:39)
[2022-07-14] MEDS: Empagliflozin 10 MG TABLET PO (09:39)
[2022-07-14] MEDS: Losartan Potassium 50 MG TABLET PO (09:39)
[2022-07-14] MEDS: Aspirin Enteric Coated 81 MG TABLET.DR PO (09:39)
[2022-07-14] MEDS: hydrALAZINE HCl 50 MG TABLET PO ×2 (09:39→21:39)
[2022-07-14] MEDS: Cholecalciferol (Vitamin D3) 25 MCG TABLET PO (09:39)
[2022-07-14] MEDS: Furosemide 40 MG TABLET PO (09:40)
--- NOTE | 2022-07-14 10:24 | MHC.CM.ED ---
Patient remains in ER overflow. Facilities requesting additional physical therapy note showing patient is participating in PT. Physical therapy was asked to re-eval on 07/13. Re-eval was not done. Physical therapy will need to re-see on 07/15 in order to try to facilitate transfer to [facility]. Continue to monitor for d/c needs.
[2022-07-14 10:56] VITALS: BP 129/64; PULSE 70; RESP 16; TEMP 36.6; O2SAT 94
--- NOTE | 2022-07-14 11:46 | PC.NURSE ---
Pt asleep at this time, no complaints of pain yet today.
[2022-07-14 12:19] LABS: Glucose, Whole Blood 169 mg/dL (60-115)
--- NOTE | 2022-07-14 13:50 | PC.NURSE ---
Pt provided with lunch
--- NOTE | 2022-07-14 14:21 | PC.NURSE ---
Pt refusing most of meal tray. Drank sugar free lamar kurt with peanut butter and dharmesh crackers
[2022-07-14 15:00] VITALS: BP 110/52; PULSE 67; RESP 16; O2SAT 94
--- NOTE | 2022-07-14 15:01 | MHC.EDTECH ---
Pt was given a bed bath, and repositioned. Pt complained of leg pain when turning. I had informed him where he was and he didn't seem to know this was a hospital. Pt has been refusing meals, saying he isn't hungry. I sat with him to try to get him to eat atleast some. The nurse brought him dharmesh crackers with peanut butter which seemed to work. Pt drank 660cc's and ate about 2 dharmesh crakers.
--- NOTE | 2022-07-14 19:27 | PC.NURSE ---
report received from Roopa CISNEROS - assumed care of patient at 1900. patient is sitting up eating dinner. able to feed self with no issues. in no apparent distress. will continue to monitor
[2022-07-14 20:53] VITALS: BP 108/48; PULSE 64; RESP 12; TEMP 36.3; O2SAT 96
[2022-07-14] MEDS: Atorvastatin Calcium 80 MG TABLET PO (21:32)
[2022-07-14] MEDS: Insulin Glargine,Hum.rec.anlog 100 UNIT/ML 10 ML VIAL 15 UNIT SUBCUT (21:33)
--- NOTE | 2022-07-14 21:37 | PC.NURSE ---
patients BP becoming softer and softer throughout the day, giving oxycodone prn for pain, therefore holding amlodipine to prevent drop in BP . patient took po bedtime meds no issues. will continue to monitor
[2022-07-15] MEDS: oxyCODONE HCl Immed Release 5 MG TABLET PO ×4 (02:20→19:52)
[2022-07-15] MEDS: Omeprazole 20 MG CAPSULE.DR PO (06:20)
--- NOTE | 2022-07-15 06:21 | PC.NURSE ---
pt reporting 8/10 pain again, reports all over pain and cannot really specify an area. oxycodone administered as ordered. patient requiring q4 hr pain meds throughout this shift. calm and cooperative. will continue to monitor
[2022-07-15 06:22] VITALS: BP 134/52; PULSE 69; RESP 12; TEMP 37.1; O2SAT 94
[2022-07-15] MEDS: Furosemide 40 MG TABLET PO (08:20)
[2022-07-15] MEDS: Empagliflozin 10 MG TABLET PO (08:21)
[2022-07-15] MEDS: Metoprolol Succinate ER 50 MG TAB.ER.24H PO (08:21)
[2022-07-15] MEDS: Aspirin Enteric Coated 81 MG TABLET.DR PO (08:21)
[2022-07-15] MEDS: Losartan Potassium 50 MG TABLET PO (08:21)
[2022-07-15] MEDS: Cholecalciferol (Vitamin D3) 25 MCG TABLET PO (08:21)
[2022-07-15] MEDS: hydrALAZINE HCl 50 MG TABLET PO ×2 (09:20→20:58)
[2022-07-15 09:23] VITALS: BP 115/41; PULSE 69; RESP 20; TEMP 36.9; O2SAT 95
[2022-07-15 11:41] VITALS: BP 103/43; PULSE 66; O2SAT 94
--- NOTE | 2022-07-15 11:42 | PC.NURSE ---
ASSUMED CARE OF PT AT 0700. PT EATING BREAKFAST AT THE TIME OF ASSUMING CARE. PT REPORTED 04/18 FULL BODY PAIN, HE STATES THIS PAIN IS ALWAYS THERE . PRN PAIN MED GIVEN DOCUMENTED. PT REFUSED PHYSICAL THERAPIST, STATED I CAN'T MOVE, I'M FINE . PT ENCOURAGED TO DO EXERCISES, HOWEVER HE REFUSED.
[2022-07-15 13:30] LABS: Glucose, Whole Blood 126 mg/dL (60-115)
--- NOTE | 2022-07-15 16:20 | MHC.CM.PN ---
PT REFUSED TO PARTICIPATE IN PT EVAL AGAIN TODAY CM CALLED PTS DAUGHTER, JOLYNN [phone], SHE REQUESTED TO SPEAK TO PT CM BROUGHT CELL PHONE TO PT JOLYNN SPOKE WITH PT, HE NOW SAYS HE WILL PARTICIPATE JOLYNN ASKS THAT SHE BE CALLED PRIOR TO PT EVAL SO SHE CAN ENSURE HE PARTICIPATES
--- NOTE | 2022-07-15 17:30 | MHC.CM.ED ---
Referrals updated. PT re-eval pending tomorrow. CM to follow for d/c planning.
[2022-07-15 17:37] VITALS: BP 109/44; PULSE 71; RESP 16; TEMP 36.8; O2SAT 95
[2022-07-15 17:42] LABS: Glucose, Whole Blood 167 mg/dL (60-115)
[2022-07-15 20:11] VITALS: BP 117/43; PULSE 72; RESP 17; TEMP 36.8; O2SAT 93
[2022-07-15] MEDS: amLODIPine Besylate 10 MG TABLET PO (20:58)
[2022-07-15] MEDS: Atorvastatin Calcium 80 MG TABLET PO (20:58)
[2022-07-15] MEDS: Insulin Glargine,Hum.rec.anlog 100 UNIT/ML 10 ML VIAL 15 UNIT SUBCUT (21:06)
[2022-07-15 21:07] LABS: Glucose, Whole Blood 298 mg/dL (60-115)
[2022-07-15 22:45] VITALS: BP 124/51; PULSE 67; RESP 20; TEMP 36.1; O2SAT 96
--- NOTE | 2022-07-15 22:46 | PC.NURSE ---
Pt's V/S are soft, but stable. Pt has urinal at bedside who utilized as needed. pt is a/ox 4, pt meds were administered as order.
[2022-07-16] MEDS: oxyCODONE HCl Immed Release 5 MG TABLET PO ×2 (05:04→10:17)
[2022-07-16] MEDS: Omeprazole 20 MG CAPSULE.DR PO (05:55)
[2022-07-16 06:16] VITALS: BP 119/47; PULSE 80; RESP 17; TEMP 37; O2SAT 92
[2022-07-16 07:42] LABS: Glucose, Whole Blood 168 mg/dL (60-115)
[2022-07-16 07:44] VITALS: BP 111/53; PULSE 89; RESP 16; TEMP 36.8; O2SAT 96
[2022-07-16] MEDS: Metoprolol Succinate ER 50 MG TAB.ER.24H PO (08:13)
[2022-07-16] MEDS: Empagliflozin 10 MG TABLET PO (08:13)
[2022-07-16] MEDS: Furosemide 40 MG TABLET PO (08:13)
[2022-07-16] MEDS: Cholecalciferol (Vitamin D3) 25 MCG TABLET PO (08:14)
[2022-07-16] MEDS: Aspirin Enteric Coated 81 MG TABLET.DR PO (08:14)
[2022-07-16] MEDS: Losartan Potassium 50 MG TABLET PO (08:14)
[2022-07-16] MEDS: hydrALAZINE HCl 50 MG TABLET PO ×2 (10:11→20:50)
--- NOTE | 2022-07-16 15:42 | MHC.CM.ED ---
Addendum entered by Letty Snider 07/16/22 15:52: Received notification from [facility] that they can offer a bed. This info was given to [facility]. [facility] will accept this bed. [facility] aware and is in the process of obtaining insurance auth. Original Note: Patient remains in overflow ER. Repeat physical therapy eval completed. Short term rehab is recommended. [facility] doesn't have a bed. [facility] is able to offer a bed. Spoke with patient's daughter/HCP, Ashely. [facility] is hesitant to accept a bed at [facility] due to their reputation. T/W explaiend referral could be sent further out. [facility] not interested in sending referral further out. Will accept bed at [facility]. T/W notified [facility]. Waiting to hear from [facility] when patient can leave [facility]. Continue to monitor for d/c needs.
--- NOTE | 2022-07-16 19:05 | PC.NURSE ---
Addendum entered by Sarah Mathew RN 07/16/22 21:01: pt alert and oriented resting in bed no signs of acute distress notice close monitoring maintained breathing equally unlabored Original Note: Report received from AMELIA Martinez
[2022-07-16 20:36] VITALS: BP 128/58; PULSE 76; RESP 16; TEMP 37; O2SAT 96
[2022-07-16] MEDS: amLODIPine Besylate 10 MG TABLET PO (20:50)
[2022-07-16] MEDS: Insulin Glargine,Hum.rec.anlog 100 UNIT/ML 10 ML VIAL 15 UNIT SUBCUT (20:50)
[2022-07-16] MEDS: Atorvastatin Calcium 80 MG TABLET PO (20:50)
[2022-07-16 22:17] LABS: COVID-19 Test Negative (Negative); IDNOW Serial# 6674DD1D
[2022-07-17 05:32] VITALS: BP 117/49; PULSE 78; RESP 17; TEMP 37.1; O2SAT 96
[2022-07-17] MEDS: Omeprazole 20 MG CAPSULE.DR PO (05:43)
[2022-07-17] MEDS: Losartan Potassium 50 MG TABLET PO (08:43)
[2022-07-17] MEDS: Empagliflozin 10 MG TABLET PO (08:43)
[2022-07-17] MEDS: Aspirin Enteric Coated 81 MG TABLET.DR PO (08:43)
[2022-07-17] MEDS: Cholecalciferol (Vitamin D3) 25 MCG TABLET PO (08:44)
[2022-07-17] MEDS: hydrALAZINE HCl 50 MG TABLET PO (08:44)
[2022-07-17] MEDS: Furosemide 40 MG TABLET PO (08:44)
[2022-07-17] MEDS: Metoprolol Succinate ER 50 MG TAB.ER.24H PO (08:44)
--- NOTE | 2022-07-17 09:04 | PC.NURSE ---
Patient sleeping is easily aroused no distress noted primarily [place] speaking able to communicate and make needs known with slovenian. Drssing to Right foot intact small spot of blood noted no complaint of pain or repsiratory distress will CTM
[2022-07-17 10:06] VITALS: BP 144/65; PULSE 75; RESP 18; TEMP 37; O2SAT 95
--- NOTE | 2022-07-17 10:20 | MHC.CM.ED ---
Patient remains in ER overflow. Patient can leave for [facility] via BLS at 1pm. [facility] booked. Med nec with chart. Patient, daughter/HCP Renny Lund RN and Lisa WHARTON aware. Continue to monitor for d/c needs.
--- NOTE | 2022-07-17 12:49 | PC.NURSE ---
Patient continent of urine constantly wiping himself with warm wipes will CTM awaiting transfer.
== END 2022-07-17 13:13 | disposition skilled nursing facility (03) ==
PROVIDERS: Physician Assistant; Physician Assistant Medical; Emergency Provider Emergency Medicine; PCP Registered Nurse
DX: L03.115 Cellulitis of right lower limb (principal); Z89.411 Acquired absence of right great toe; Z20.822 Contact with and (suspected) exposure to COVID-19; Z20.828 Contact with and (suspected) exposure to other viral communicable diseases; E11.9 Type 2 diabetes mellitus without complications; I10 Essential (primary) hypertension; E78.5 Hyperlipidemia, unspecified; Z87.891 Personal history of nicotine dependence; Z86.73 Personal history of transient ischemic attack (TIA), and cerebral infarction without residual deficits; Z79.82 Long term (current) use of aspirin; Z79.02 Long term (current) use of antithrombotics/antiplatelets; Z79.4 Long term (current) use of insulin; Z79.899 Other long term (current) drug therapy
CPT/HCPCS: 0241U; 36415; 73630; 80048; 80076; 82947; 83735; 85025; 85652; 86140; 87635; 97162; 97530; 99285

== ENCOUNTER 2022-09-13 14:41 | Inpatient (IN) | payer OTHER, SELFPAY ==
--- NOTE | ~2022-09-13 | XR_ITS ---
EXAMINATION: XR FOOT, RIGHT CLINICAL INFORMATION: Pain. Rule out infection. COMPARISON: Previous x-ray most recent July 2022 TECHNIQUE: 3 views of the right foot FINDINGS: There is amputation of the great toe. There is increasing air seen in the soft tissues adjacent to the first metatarsal head. There is increasing lucency or cystic change in the first metatarsal tarsal head. Osteomyelitis of the first metatarsal head should be considered. No fracture or dislocation. There is generalized osteopenia. Joint spaces are normal. There is soft tissue arterial calcification. XR/XR foot RT 2V IMPRESSION: Increasing air in the soft tissues and lucency or cystic change in the first metatarsal head. Osteomyelitis of the first metatarsal head should be considered. Further evaluation with MRI or bone scan should be considered.
--- NOTE | ~2022-09-13 | CT_ITS ---
EXAMINATION: CT HEAD WITHOUT CONTRAST CLINICAL INFORMATION: Encephalopathy COMPARISON: Previous CT June 2021 TECHNIQUE: Contiguous axial imaging was performed from the skull base to vertex without intravenous administration of contrast. This CT examination was performed using dose optimization techniques as appropriate, variously including the following: *Automated exposure control *Adjustment of mA and/or kV according to patient size (this includes techniques or standardized protocols for targeted exams where dose is matched to indication/reason for exam; i.e. extremities or head) *Use of iterative reconstruction technique DLP: 6-7 mGy-cm FINDINGS: There is no evidence of an extra-axial collection. No evidence of intra-axial or extra-axial hemorrhage. The ventricles and extra-axial CSF spaces are prominent suggestive of generalized atrophy. There is nonspecific periventricular white matter disease. There is an old left occipital parietal infarct. No mass, mass effect or acute infarct. Atherosclerotic disease. Inflammatory changes in the right maxillary sinus. Visualized paranasal sinuses, mastoid air cells and middle ears are otherwise clear. CT/CT head/brain wo IV con IMPRESSION: No acute intracranial findings. 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 Right maxillary sinus disease.
[2022-09-13 14:52] VITALS: BP 112/38; PULSE 89; RESP 16; TEMP 37.2; O2SAT 98; BMI 26.6
[2022-09-13 15:40] VITALS: BP 105/46; PULSE 66; RESP 14; TEMP 36.9; O2SAT 94
[2022-09-13 16:05] LABS: MANUAL DIFF FLAG NO
[2022-09-13 16:07] LABS: Basophils Absolute Auto 0.1 X10*3/uL (0.0-0.2); Basophils Percent Auto 0.5 % (0-2); Eosinophils Absolute Auto 0.2 X10*3/uL (0.0-0.4); Eosinophils Percent Auto 2.3 % (0-4); Hematocrit 27.4 % (42.0-52.0); Hemoglobin 8.5 g/dl (14.0-18.0); Imm Gran Abs Auto 0.04 X10*3/uL (0.00-0.03); Imm Gran Pct Auto 0.4 % (0.0-0.4); Lymphocytes Absolute Auto 2.6 X10*3/uL (1.2-4.9); Lymphocytes Percent Auto 26.4 % (20-40); Mean Corpuscular Hemoglobin 24.7 pg (27.0-33.0); Mean Corpuscular Volume 79.7 fL (80.0-98.0); Mean Platelet Volume 10.2 fL (9.4-12.4); Monocytes Absolute Auto 0.7 X10*3/uL (0.1-1.2); Monocytes Percent Auto 7.4 % (2-11); Neutrophils Absolute Auto 6.3 x10*3/uL (2.0-8.3); Platelet Count 334 X10*3/uL (160-400); Red Blood Count 3.44 X10*6/uL (4.60-5.80); Red Cell Distribution Width 16.4 % (11.0-16.0)
[2022-09-13 16:21] LABS: Lactic Acid 1.5 mmol/L (0.5-2.0)
[2022-09-13 16:24] LABS: Alanine Aminotransferase 8 U/L (0-40); Albumin Level 2.9 g/dL (3.5-5.0); Alkaline Phosphatase 90 U/L (39-117); Anion Gap 13 (12-20); Aspartate Amino Transferase 10 U/L (5-37); Bilirubin Total 0.5 mg/dL (0.0-1.0); Blood Urea Nitrogen 58 mg/dL (9-16); C Reactive Protein 3.97 mg/dL (< or = 0.50); Calcium 8.6 mg/dL (8.4-10.2); Carbon Dioxide 30 mmol/L (22-29); Chloride 99 mmol/L (96-108); Estimated Glomerular Filt Rate 27; Glucose Random 235 mg/dL (60-115); Magnesium 2.5 mg/dL (1.6-2.6); Potassium 4.3 mmol/L (3.3-5.1); Sodium 138 mmol/L (135-145); Total Protein 6.6 g/dL (6.5-8.0)
--- NOTE | 2022-09-13 16:48 | ED_ITS ---
HPI - Extremity Injury (Lower) General Chief Complaint: Extremity Injury, Lower Stated Complaint: Pain at big toe amputation site per EMS Time Seen by Provider: 09/13/22 16:05 Source: patient and EMS Mode of arrival: EMS Limitations: other (Dementia) History of Present Illness HPI Narrative: Patient comes to the emergency room from a assisted facility complaining of pain at the amputation side foot by the right great toe. 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 Patient is unable to give significant history, patient has history of dementia. Patient complaining of localized pain, no URI or UTI symptoms. Related Data Home Medications Medication Instructions Recorded Confirmed amlodipine 10 mg tablet 10 mg PO BEDTIME 03/07/21 07/11/22 aspirin 81 mg tablet,delayed 81 mg PO DAILY 03/07/21 07/11/22 release atorvastatin 80 mg tablet 80 mg PO BEDTIME 03/07/21 07/11/22 omeprazole 20 mg capsule,delayed 20 mg PO DAILY@0630 03/07/21 07/11/22 release hydralazine 50 mg tablet 50 mg PO BID 07/07/21 07/11/22 metoprolol succinate 50 mg 50 mg PO DAILY 07/07/21 07/11/22 tablet,extended release 24 hr cholecalciferol (vitamin D3) 25 1 tab PO DAILY 01/17/22 07/11/22 mcg (1,000 unit) tablet insulin glargine 100 unit/mL 15 unit subcut BEDTIME 01/17/22 07/11/22 subcutaneous solution (Lantus U-100 Insulin) empagliflozin 10 mg tablet 1 tab PO DAILY 01/31/22 07/11/22 (Jardiance) losartan 50 mg tablet 50 mg PO DAILY 01/31/22 07/11/22 furosemide 40 mg tablet 1 tab QAM 07/03/22 07/11/22 Previous Rx's Medication Instructions Recorded compr.stocking,knee,long,large #12 ea 08/31/21 compress.stocking,knee,reg,lrg #2 ea 09/23/21 oxycodone 5 mg tablet 5 mg PO Q4H PRN Pain, Severe (Pain 07/10/22 Scale 7-10) #15 tabs oxycodone 5 mg capsule 5 mg PO Q6H PRN pain (scale score 02/08/23 7-10) 3 days #9 caps Allergies Allergy/AdvReac Type Severity Reaction Status Date / Time Penicillins [PENICILLINS] Allergy Intermediate RASH Verified 07/11/22 12:27 Review of Systems Review of Systems: Constitutional : No Weight loss, No Fever, No Chills, No Night Sweats, No Fatigue, No Malaise ENT/Mouth : No Hearing loss, No Ear Pain, No Nasal Congestion, No Sinus Pain, No Hoarseness, No sore throat, No Rhinorrhea, No Swallowing Difficulty Eyes: No Eye Pain, No Swelling, No Redness, No Foreign Body, No Discharge, No Vision Changes Cardiovascular : No Chest Pain, No SOB, No Dyspnea on Exertion, No Orthopnea, No Edema, No Palpitations Respiratory : No Cough, No Sputum, No Wheezing, No Smoke Exposure, No Dyspnea Gastrointestinal : No Nausea, No Vomiting, No Diarrhea, No Constipation, No abdominal Pain, No Hematochezia, No Melena Genitourinary : no irregular bleeding, No Dysuria, No Urinary Frequency, No Hematuria, No Urinary Incontinence, No Urgency, No Flank Pain, No Urinary Flow Changes, No Hesitancy Musculoskeletal : Complaining of right foot pain at the site of the amputation of the greater toe. No Myalgias, No Joint Swelling Skin : No Skin Lesions, No rash Neuro : No Weakness, No Numbness, No Paresthesias, No Loss of Consciousness, No Dizziness, No Headache Psych : No Anxiety/Panic, No Depression, No SI/HI/AH/VH, No Social Issues, Heme/Lymph: No Bruising, No Bleeding,No Lymphadenopathy Endocrine : No Polyuria, No Polydipsia, No Temperature Intolerance [facility] Past Medical History Medical History Adenocarcinoma of right lung (~2020) COPD (chronic obstructive pulmonary disease) Dementia Diabetes Former smoker, stopped smoking in distant past History of CVA (cerebrovascular accident) (~07/2020) HTN (hypertension) Hyperlipidemia Pneumonia Surgical History History of lung biopsy (~10/2020) Social History Social History Household Members: Family Household Members Other:: step-son spends the night frequently Housing: Apartment Do you presently have visiting nurse or other home services: No Alcohol intake: never Patient Tobacco Use Status: Former Tobacco user Advance Directives: Yes Advance Directives on File: Yes Advance Directives Date on File: 05/24/21 service: No Current occupational status: retired Physical Exam Vital Signs: Vital Signs: Last Vital Signs Temp 98.5 F 09/13/22 15:40 Pulse 66 09/13/22 15:40 Resp 14 09/13/22 15:40 BP 105/46 L 09/13/22 15:40 Pulse Ox 94 09/13/22 15:40 O2 Del Method Room Air 09/13/22 15:40 BMI result Body Mass Index 26.6 Const: Other: Appearance: Alert. Oriented X2. No acute distress. Eyes: Pupils equal, round and reactive to light. ENT: Pharynx normal. Neck: Normal inspection. Neck supple. No lymph nodes noted. No crepitus CVS: Normal heart rate and rhythm. Pulses normal. Normal S1 and S2 Respiratory: No respiratory distress. Breath sounds normal. No Wheezing. No rales Abdomen: Soft and nontender. No rigidity. No distention. Skin: Skin warm and dry. Normal skin color. See extremity below. Extremities: No lower extremity edema. No Lacerations. No Rash. Right foot, patient has sutures still present, malodorous discharge from the right great toe. Unstageable ulcer at the heel Neuro: Oriented X 2. No motor deficit. No sensory deficit. Moving all extremities. No slurred speech. CN 2 through 12 grossly intact Psych: calm, cooperative, normal affect Course Course Course Narrative: -patient's labs pending, blood pressure stable, no fever, sepsis not suspected. -x-rays pending Medications Administered Generic Name Dose Route Start Last Admin Trade Name Freq PRN Reason Stop Dose Admin Vancomycin HCl 2,000 mg in 520 mls @ 260 mls/hr 09/13/22 16:41 09/13/22 17:07 Vancomycin/Ns IV 09/13/22 18:40 260 mls/hr ONCE ONE Administration Ceftriaxone Sodium 1 gm/ 50 mls @ 100 mls/hr 09/13/22 16:45 09/13/22 16:58 Sodium Chloride IV 09/13/22 17:14 100 mls/hr ONCE ONE Administration Medical Decision Making Medical Decision Making MDM Narrative: -well as the tongue within normal limits, blood pressure 112/38, patient being started on empiric antibiotics, Zosyn and ceftriaxone, patient is allergic to penicillin. -x-ray shows possible osteomyelitis -I discussed the patient with Dr. uRsso, patient being admitted Differential Diagnosis Differential Diagnoses: The differential diagnosis associated with the presentation includes (Cellulitis, osteomyelitis) Admission/Observation Consideration of admission/observation: Escalation of care including admission/observation considered Consult Healthcare Provider Management of the patient was discussed with: Hospitalist Lab Data [facility] Lab Attestation statement: I reviewed the patient's lab results. 09/13/22 15:59 09/13/22 15:59 Labs: Lab Results 09/13/22 09/13/22 09/13/22 Range/Units 15:58 15:59 15:59 WBC 10.0 (4.8-10.8) X10*3/uL RBC 3.44 L (4.60-5.80) X10*6/uL Hgb 8.5 L (14.0-18.0) g/dl Hct 27.4 L (42.0-52.0) % MCV 79.7 L (80.0-98.0) fL MCH 24.7 L (27.0-33.0) pg MCHC 31.0 (31.0-36.0) g/dl RDW 16.4 H (11.0-16.0) % Plt Count 334 D (160-400) X10*3/uL MPV 10.2 (9.4-12.4) fL Immature Gran % (Auto) 0.4 (0.0-0.4) % Neut % (Auto) 63.0 (45-73) % Lymph % (Auto) 26.4 (20-40) % [place] % (Auto) 7.4 (2-11) % Eos % (Auto) 2.3 (0-4) % Baso % (Auto) 0.5 (0-2) % Lymph # (Auto) 2.6 (1.2-4.9) X10*3/uL [place] # (Auto) 0.7 (0.1-1.2) X10*3/uL Eos # (Auto) 0.2 (0.0-0.4) X10*3/uL Baso # (Auto) 0.1 (0.0-0.2) X10*3/uL Abs Immat Gran (auto) 0.04 H (0.00-0.03) X10*3/uL Absolute Neuts (auto) 6.3 (2.0-8.3) x10*3/uL Absolute Nucleated RBC 0.000 (0.0-0.012) X10*3/uL Nucleated RBC % (auto) 0.0 (0.0-0.2) /100WBC ESR (0-15) MM/HR Sodium 138 (135-145) mmol/L Potassium 4.3 (3.3-5.1) mmol/L Chloride 99 (96-108) mmol/L Carbon Dioxide 30 H (22-29) mmol/L Anion Gap 13 (12-20) BUN 58 H (9-16) mg/dL Creatinine 2.31 H (0.5-1.4) mg/dL Estim Creat Clear Calc 23.0 Estimated GFR 27 Random Glucose 235 H (60-115) mg/dL Lactic Acid 1.5 (0.5-2.0) mmol/L Calcium 8.6 (8.4-10.2) mg/dL Magnesium 2.5 (1.6-2.6) mg/dL Total Bilirubin 0.5 (0.0-1.0) mg/dL AST 10 (5-37) U/L ALT 8 (0-40) U/L Alkaline Phosphatase 90 (39-117) U/L C-Reactive Protein 3.97 H (< or = 0.50) mg/dL Total Protein 6.6 (6.5-8.0) g/dL Albumin 2.9 L (3.5-5.0) g/dL 09/13/22 Range/Units 15:59 WBC (4.8-10.8) X10*3/uL RBC (4.60-5.80) X10*6/uL Hgb (14.0-18.0) g/dl Hct (42.0-52.0) % MCV (80.0-98.0) fL MCH (27.0-33.0) pg MCHC (31.0-36.0) g/dl RDW (11.0-16.0) % Plt Count (160-400) X10*3/uL MPV (9.4-12.4) fL Immature Gran % (Auto) (0.0-0.4) % Neut % (Auto) (45-73) % Lymph % (Auto) (20-40) % [place] % (Auto) (2-11) % Eos % (Auto) (0-4) % Baso % (Auto) (0-2) % Lymph # (Auto) (1.2-4.9) X10*3/uL [place] # (Auto) (0.1-1.2) X10*3/uL Eos # (Auto) (0.0-0.4) X10*3/uL Baso # (Auto) (0.0-0.2) X10*3/uL Abs Immat Gran (auto) (0.00-0.03) X10*3/uL Absolute Neuts (auto) (2.0-8.3) x10*3/uL Absolute Nucleated RBC (0.0-0.012) X10*3/uL Nucleated RBC % (auto) (0.0-0.2) /100WBC ESR 95 H (0-15) MM/HR Sodium (135-145) mmol/L Potassium (3.3-5.1) mmol/L Chloride (96-108) mmol/L Carbon Dioxide (22-29) mmol/L Anion Gap (12-20) BUN (9-16) mg/dL Creatinine (0.5-1.4) mg/dL Estim Creat Clear Calc Estimated GFR Random Glucose (60-115) mg/dL Lactic Acid (0.5-2.0) mmol/L Calcium (8.4-10.2) mg/dL Magnesium (1.6-2.6) mg/dL Total Bilirubin (0.0-1.0) mg/dL AST (5-37) U/L ALT (0-40) U/L Alkaline Phosphatase (39-117) U/L C-Reactive Protein (< or = 0.50) mg/dL Total Protein (6.5-8.0) g/dL Albumin (3.5-5.0) g/dL Independent Interpretation I performed an independent interpretation of an: Plain X-Ray (X-ray of the right foot, suspicious for osteomyelitis on the 1st metatarsal) Radiology Impression Discussion of test interpretation with radiology: I have reviewed the radiologist's reading. Radiologist Impression: FINDINGS: There is amputation of the great toe. There is increasing air seen in the soft tissues adjacent to the first metatarsal head. There is increasing lucency or cystic change in the first metatarsal tarsal head. Osteomyelitis of the first metatarsal head should be considered. No fracture or dislocation. There is generalized osteopenia. Joint spaces are normal. There is soft tissue arterial calcification. XR/XR foot RT 2V IMPRESSION: Increasing air in the soft tissues and lucency or cystic change in the first metatarsal head. Osteomyelitis of the first metatarsal head should be considered. Further evaluation with MRI or bone scan should be considered. Discharge Plan Discharge Clinical Impression: Osteomyelitis Patient Disposition: Admitted As Inpatient
[2022-09-13] MEDS: cefTRIAXone sodium 1 GM in 0.9 % Sodium Chloride 50 ML IV (16:58)
[2022-09-13 17:05] LABS: Erythrocyte Sedimentation Rate 95 MM/HR (0-15)
--- NOTE | 2022-09-13 17:33 | P.HPHOSP_ITS ---
History of Present Illness Date of Service: 09/13/22 Attending physician on admission: Fadia Russo Chief Complaint: Right foot pain Pt is an 81-year-old male with a PMH significant for?COPD, CVA, HTN, insulin- dependent diabetes, dementia, and HLD who presents to the ED?from a SNF with adrianna n at the site of a recent amputation of the first digit of his right foot. Surgery was performed by Dr. Tee on 07/08/2022. Pt with baseline dementia, significant HPI thus difficult to obtain. Pt complains only of worsening right foot pain centered around surgical site and localized to the foot. Does not radiate to leg. Pt has no other complaints: no oozing or discharge from wound. Denies chest pain/pressure, palpitations. No shortness of breath. Denies fever, chills, nausea, vomiting, diarrhea, abdominal pain. No polyuria or dysuria. In the ED patient was afebrile but slightly hypotensive 105/46. Labs were significant for no leukocytosis, H&H of 8.5/27.4, ESR elevated 95, C-reactive protein of 3.97, elevated BUN of 58, and creatinine of 2.31. CXR showed increased air in the soft tissues and lucency or cystic change in the 1st metatarsal head, likely osteomyelitis. Pt was treated with ceftriaxone and vanco. Pt will be admitted to the hospital for treatment of osteomyelitis with IV antibiotics. [facility] Medical History Adenocarcinoma of right lung (~2020) COPD (chronic obstructive pulmonary disease) Dementia Diabetes Former smoker, stopped smoking in distant past History of CVA (cerebrovascular accident) (~07/2020) HTN (hypertension) Hyperlipidemia Pneumonia Surgical History History of lung biopsy (~10/2020) Social History Household Members: Family Household Members Other:: step-son spends the night frequently Housing: Apartment Do you presently have visiting nurse or other home services: No Alcohol intake: never Patient Tobacco Use Status: Former Tobacco user Advance Directives: Yes Advance Directives on File: Yes Advance Directives Date on File: 05/24/21 service: No Current occupational status: retired Meds Allergies Allergy/AdvReac Type Severity Reaction Status Date / Time Penicillins [PENICILLINS] Allergy Intermediate RASH Verified 07/11/22 12:27 Active Medications: Current Medications Vancomycin HCl (Vancomycin/Ns) 2,000 mg in 520 mls @ 260 mls/hr IV ONCE ONE Stop: 09/13/22 18:40 Last Admin: 09/13/22 17:07 Dose: 260 mls/hr Pharmacy Consult (Consult Rx Perform Med Rec) 1 each MISCELLANE ONCE PRN PRN Reason: Consult order Home Medications Medication Instructions Recorded Confirmed Last Taken Type amlodipine 10 mg tablet 10 mg PO BEDTIME 03/07/21 09/13/22 05/16/21 History atorvastatin 80 mg tablet 80 mg PO BEDTIME 03/07/21 09/13/22 05/16/21 History omeprazole 20 mg capsule,delayed 20 mg PO DAILY@0630 03/07/21 09/13/22 05/16/21 History release hydralazine 50 mg tablet 50 mg PO BID 07/07/21 09/13/22 Unknown History metoprolol succinate 50 mg 50 mg PO DAILY 07/07/21 09/13/22 Unknown History tablet,extended release 24 hr cholecalciferol (vitamin D3) 25 1 tab PO DAILY 01/17/22 09/13/22 Unknown History mcg (1,000 unit) tablet insulin glargine 100 unit/mL 15 unit subcut BEDTIME 01/17/22 09/13/22 Unknown History subcutaneous solution (Lantus U-100 Insulin) empagliflozin 10 mg tablet 10 mg PO DAILY 01/31/22 09/13/22 Unknown History (Jardiance) losartan 50 mg tablet 50 mg PO DAILY 01/31/22 09/13/22 Unknown History furosemide 40 mg tablet 40 mg BID 07/03/22 09/13/22 Unknown History aspirin 81 mg chewable tablet 81 mg PO DAILY 09/13/22 09/13/22 Unknown History hydroxyzine HCl 10 mg tablet 10 mg PO TID 09/13/22 09/13/22 Unknown History insulin lispro 100 unit/mL 1 sliding scale dose subcut 09/13/22 09/13/22 Unknown History subcutaneous cartridge [id number] Physical Exam Vital Signs and Narrative: Vital Signs: Last Vital Signs Temp 98.5 F 09/13/22 15:40 Pulse 66 09/13/22 15:40 Resp 14 09/13/22 15:40 BP 105/46 L 09/13/22 15:40 Pulse Ox 94 09/13/22 15:40 O2 Del Method Room Air 09/13/22 15:40 BMI result Body Mass Index 26.6 Constitutional: Dishelved, alert, in no acute distress. Mental Status: Oriented to person, place and time. Eyes: Pupils are equal, round, and reactive to light. Ear, Nose, and Throat: Oropharynx clear, mucous membranes moist. Ears and nose without deformities. Trachea midline. Respiratory: Clear to auscultation bilaterally. No wheezing, rales, or rhonchi. Cardiovascular: S1, S2 regular. No murmurs, rubs, or gallops. Gastrointestinal: Abdomen soft, non-tender, non-distended. Normal bowel sounds. Neurologic: Cranial nerves II-XII are grossly intact bilaterally. No focal neurological deficits. Moves all extremities spontaneously. Skin: Warm, dry. Extremities: Bilateral +1 pitting lower leg edema. Skin dry, peeling on plantar surface of feet bilaterally. Open sores at site of recent surgery and on proximal dorsal surface with mild erythema and no expressible drainage from wounds. Other wounds on back of heel, lateral aspect of fifth digit, and on dorsal surface of second digit. As pictured below. Psychiatric: Normal mood and affect. Results Labs 09/13/22 15:59 09/13/22 15:59 Labs: Laboratory Results - last 24 hr 09/13/22 09/13/22 09/13/22 15:58 15:59 15:59 MCV 79.7 L MCH 24.7 L MCHC 31.0 RDW 16.4 H Plt Count 334 D MPV 10.2 Immature Gran % (Auto) 0.4 Neut % (Auto) 63.0 Lymph % (Auto) 26.4 [place] % (Auto) 7.4 Eos % (Auto) 2.3 Baso % (Auto) 0.5 Lymph # (Auto) 2.6 [place] # (Auto) 0.7 Eos # (Auto) 0.2 Baso # (Auto) 0.1 Abs Immat Gran (auto) 0.04 H Absolute Neuts (auto) 6.3 Absolute Nucleated RBC 0.000 Nucleated RBC % (auto) 0.0 ESR Anion Gap 13 Estim Creat Clear Calc 23.0 Estimated GFR 27 Random Glucose 235 H Lactic Acid 1.5 Calcium 8.6 Magnesium 2.5 Total Bilirubin 0.5 AST 10 ALT 8 Alkaline Phosphatase 90 C-Reactive Protein 3.97 H Total Protein 6.6 Albumin 2.9 L 09/13/22 15:59 MCV MCH MCHC RDW Plt Count MPV Immature Gran % (Auto) Neut % (Auto) Lymph % (Auto) [place] % (Auto) Eos % (Auto) Baso % (Auto) Lymph # (Auto) [place] # (Auto) Eos # (Auto) Baso # (Auto) Abs Immat Gran (auto) Absolute Neuts (auto) Absolute Nucleated RBC Nucleated RBC % (auto) ESR 95 H Anion Gap Estim Creat Clear Calc Estimated GFR Random Glucose Lactic Acid Calcium Magnesium Total Bilirubin AST ALT Alkaline Phosphatase C-Reactive Protein Total Protein Albumin Imaging Radiologist's Impressions: Impressions Foot X-Ray 09/13/22 15:49 IMPRESSION: Increasing air in the soft tissues and lucency or cystic change in the first metatarsal head. Osteomyelitis of the first metatarsal head should be considered. Further evaluation with MRI or bone scan should be considered. Assessment and Plan (1) Osteomyelitis: Status: Acute (2) ELIZABETH (acute kidney injury): Status: Resolved Plan Pt is an 81-year-old male with a PMH significant for?COPD, CVA, HTN, insulin- dependent diabetes, dementia, and HLD who presents to the ED?from a SNF with pain at the site of a recent amputation of the first digit of his right foot. Pt was treated with ceftriaxone and vanco. Pt will be admitted to the hospital for treatment of osteomyelitis with IV antibiotics. Question of osteomyelitis of 1st digit of right foot At site of recent toe amputation on 07/08/2022 for osteomyelitis secondary to diabetic foot ulcer X-ray suggestive of osteomyelitis, elevated ESR and CRP, no leukocytosis Patient not septic IV ABX: Vanco and levofloxacin Infectious disease consult Vascular surgery consult Wound care consult Follow cultures ELIZABETH on CKD Creatinine elevated at 2.31, above baseline of around 1.7 Hold antihypertensives for now Hold off on IVF for now due to history of CHF Patient to receive albumin Follow BMP Low albumin Patient's albumin 2.9 Will receive albumin 25% q12hr HTN BP soft, hold losartan, furosemide, amlodipine, hydralazine, and metoprolol for now Monitor BP, resume home meds as warranted HFpEF Not in acute exacerbation Hold furosemide due to low BP Insulin-dependent diabetes Continue Jardiance, hold home insulin SSI, Lantus HLD Continue statin Full Code Attending:?Dr. Russo DVT Prophylaxis: Lovenox Pt will require a hospitalization of at least two nights for treatment of?likely osteomyelitis of the 1st digit of the right foot with IV antibiotics. Time Spent With Patient Time: Total time managing care of this patient today ____ minutes. Quality Stroke Does the patient have a stroke diagnosis?: No VTE Prior VTE?: No VTE Risk Level:: Medical - moderate - high VTE Device Contraindication: Treatment Not Indicated VTE Drug Contraindication: N/A - Med Ordered
--- NOTE | 2022-09-13 18:16 | PHA.MEDREC ---
Pharmacy Consult ? Medication Reconciliation Pharmacy has completed the medication reconciliation. MED LIST FROM MEDICATION REVIEW REPORT FROM [facility]
[2022-09-13 18:34] LABS: COVID-19 Test Negative (Negative); IDNOW Serial# BCCEAD1C
[2022-09-13 18:49] VITALS: BP 109/32; PULSE 73; RESP 13; TEMP 36.6; O2SAT 96
--- NOTE | 2022-09-13 19:02 | PM.EVENT ---
Event Note Date of Service: 09/14/22 Event Note: This patient is seen and examined with APC. Patient seen and examined-patient had recent amputation of the toe in : Came back with toe pain with some mild serous discharge and erythema around the toe mild. Lab imaging: CBC: No leukocytosis, BUN and creatinine is elevated from baseline. ESR is 95, CRP is 4. foot xray:XR/XR foot RT 2V IMPRESSION: Increasing air in the soft tissues and lucency or cystic change in the first metatarsal head. Osteomyelitis of the first metatarsal head should be considered. Further evaluation with MRI or bone scan should be considered. Physical exam and assessment and plan coordinated in APCs note, Agree with the plan in addition: Possible foot cellulitis at the [facility] site suspicion for possible acute osteo: Continue IV antibiotics, vanco, pharmacy consult for vanco. Hypoalbuminemia: Due to poor oral intake: Added albumin, boderline bp: hold all bp meds,lasix. Vascular evaluation, will consider ID also since patient has recurrent bout of foot infection. Blood culture pending. Time Spent With Patient Time: Total time managing care of this patient today ____ minutes.
[2022-09-13 20:16] VITALS: BP 139/63; PULSE 81; RESP 18; TEMP 36.5; O2SAT 96
[2022-09-13 20:49] LABS: Glucose, Whole Blood 188 mg/dL (60-115)
[2022-09-13] MEDS: levoFLOXacin/D5W 750 MG/150 ML PIGGYBACK 100 MG IV (21:18)
[2022-09-13] MEDS: Atorvastatin Calcium 80 MG TABLET PO (21:18)
[2022-09-13] MEDS: Insulin Glargine,Hum.rec.anlog 100 UNIT/ML 10 ML VIAL 10 UNIT SUBCUT (21:18)
[2022-09-13] MEDS: Enoxaparin Sodium 30 MG/0.3 ML SYRINGE SUBCUT (21:18)
[2022-09-13] MEDS: Insulin Lispro 100 UNIT/ML 3 ML VIAL SUBCUT (21:18)
[2022-09-13] MEDS: Albumin Human 25 % 100 ML IV (22:02)
[2022-09-13 23:34] VITALS: BP 156/65; PULSE 72; RESP 16; TEMP 36.7; O2SAT 98
[2022-09-13] MEDS: oxyCODONE HCl Immed Release 5 MG TABLET PO (23:49)
[2022-09-14 03:17] VITALS: BP 123/71; PULSE 85; RESP 16; TEMP 36.4; O2SAT 97
[2022-09-14 06:06] LABS: Hematocrit 28.2 % (42.0-52.0); Hemoglobin 8.7 g/dl (14.0-18.0); Mean Corpuscular HGB Conc 30.9 g/dl (31.0-36.0); Mean Corpuscular Hemoglobin 24.8 pg (27.0-33.0); Mean Corpuscular Volume 80.3 fL (80.0-98.0); Mean Platelet Volume 10.5 fL (9.4-12.4); Platelet Count 351 X10*3/uL (160-400); Red Blood Count 3.51 X10*6/uL (4.60-5.80); Red Cell Distribution Width 16.4 % (11.0-16.0); White Blood Count 11.5 X10*3/uL (4.8-10.8)
[2022-09-14 06:20] LABS: Anion Gap 12 (12-20); Blood Urea Nitrogen 45 mg/dL (9-16); Calcium 9.5 mg/dL (8.4-10.2); Carbon Dioxide 33 mmol/L (22-29); Chloride 102 mmol/L (96-108); Creatinine Clr Calc Pharmacy 29.9; Estimated Glomerular Filt Rate 37; Glucose Random 89 mg/dL (60-115); Potassium 4.2 mmol/L (3.3-5.1); Sodium 143 mmol/L (135-145)
[2022-09-14] MEDS: Omeprazole 20 MG CAPSULE.DR PO (06:23)
[2022-09-14] MEDS: oxyCODONE HCl Immed Release 5 MG TABLET PO ×4 (06:26→20:16)
[2022-09-14 07:21] VITALS: BP 159/70; PULSE 74; RESP 18; TEMP 36.9; O2SAT 90
[2022-09-14 07:36] LABS: Glucose, Whole Blood 78 mg/dL (60-115)
[2022-09-14] MEDS: Aspirin 81 MG TAB.CHEW PO (08:11)
[2022-09-14] MEDS: Empagliflozin 10 MG TABLET PO (08:12)
[2022-09-14] MEDS: Metoprolol Tartrate 12.5 MG HALFTAB PO ×3 (08:13→20:16)
[2022-09-14] MEDS: Albumin Human 25 % 100 ML IV ×4 (08:15→21:53)
[2022-09-14] MEDS: Cholecalciferol (Vitamin D3) 25 MCG TABLET PO (08:17)
[2022-09-14] MEDS: hydrOXYzine HCL 10 MG TABLET PO ×3 (08:17→20:16)
[2022-09-14] MEDS: 0.9 % Sodium Chloride Flush 3 ML SYRINGE IVFLUSH ×3 (08:18→20:16)
[2022-09-14] MEDS: Mineral Oil/Petrolatum,White 106 GM Tube 1 APPL TOPICAL ×2 (08:18→21:22)
--- NOTE | 2022-09-14 10:50 | HO.PM.IMPN ---
Subjective Subjective Date of Service: 09/14/22 Interval History: Possible foot cellulitis at the [facility] site suspicion for possible acute osteo. Review of Systems still has foot pain /erythema similar to yesterday. no fevers Physical Exam Vital Signs: Vital Signs: Last Vital Signs Temp 98.5 F 09/14/22 07:21 Pulse 74 09/14/22 07:21 Resp 18 09/14/22 07:21 BP 159/70 H 09/14/22 07:21 Pulse Ox 90 L 09/14/22 07:21 O2 Del Method Room Air 09/14/22 07:21 BMI result Body Mass Index 26.6 Appearance: Alert.? Oriented X3.? not in distress.? cvs: rrr, [id number] . res: clear to auscultation ,no rhonchii or wheezing abd: no rebound or guarding ,nt, bs present. ext pulses present , no cyanosis right foot -big toes area and foot seems similar to yesterday-mild erythema in foot /pain, no fluctuation or discharge-please see pictures (foot in h&p). neuro: axo3 , nonfocal. Objective Data Active Medications Acetaminophen (Acetaminophen 325 Mg Tablet) 650 mg PO Q6H PRN PRN Reason: Pain, Mild (Pain Scale 1-3) Aspirin (Aspirin 81 Mg Tab.Chew) 81 mg PO DAILY [facility] Last Admin: 09/14/22 08:11 Dose: 81 mg Documented By: GIBRAN Atorvastatin Calcium (Atorvastatin Calcium 80 Mg Tablet) 80 mg PO BEDTIME [facility] Last Admin: 09/13/22 21:18 Dose: 80 mg Documented By: PHILL Docusate Sodium (Docusate Sodium 100 Mg Capsule) 100 mg PO DAILY PRN PRN Reason: Constipation Empagliflozin (Empagliflozin 10 Mg Tablet) 10 mg PO DAILY [facility] Last Admin: 09/14/22 08:12 Dose: 10 mg Documented By: GIBRAN Enoxaparin Sodium (Enoxaparin Sodium 30 Mg/0.3 Ml Syringe) 30 mg SUBCUT Q24H [facility] Last Admin: 09/13/22 21:18 Dose: 30 mg Documented By: PHILL Glucose (Glucose Gel 15 Gm Gel..Gram.) 15 gm PO Q15M PRN; Protocol PRN Reason: per Hypoglycemia Standing Ord. Hydroxyzine HCl (Hydroxyzine Hcl 10 Mg Tablet) 10 mg PO TID [facility] Last Admin: 09/14/22 08:17 Dose: 10 mg Documented By: GIBRAN Dextrose (D10) 250 mls @ 750 mls/hr IV Q15M PRN; Protocol PRN Reason: per Hypoglycemia Standing Ord. Levofloxacin (Levaquin) 750 mg in 150 mls @ 100 mls/hr IV Q48H [facility] Last Infusion: 09/13/22 23:40 Dose: 0 mls/hr Documented By: PHILL Vancomycin HCl 750 mg/ Sodium (Chloride) 265 mls @ 265 mls/hr IV Q24H [facility] Albumin Human (Kedbumin 25 %) 100 mls @ 100 mls/hr IV Q12H [facility] Stop: 09/15/22 10:59 Last Infusion: 09/14/22 10:39 Dose: 0 mls/hr Documented By: GIBRAN Albumin Human (Kedbumin 25 %) 100 mls @ 100 mls/hr IV Q6H [facility] Stop: 09/14/22 14:14 Last Infusion: 09/14/22 09:18 Dose: 0 mls/hr Documented By: GIBRAN Insulin Glargine (Insulin Glargine,Hum.Rec.Anlog 100 Unit/Ml 10 Ml Vial) 10 unit SUBCUT BEDTIME [facility] Last Admin: 09/13/22 21:18 Dose: 10 unit Documented By: PHILL Insulin Human Lispro (Insulin Lispro 100 Unit/Ml 3 Ml Vial) 0 unit SUBCUT QIDACHS [facility]; Protocol Last Admin: 09/14/22 08:26 Dose: Not Given Documented By: GIBRAN Non-Admin Reason: No Insulin Coverage Metoprolol Tartrate (Metoprolol Tartrate 12.5 Mg Halftab) 12.5 mg PO TID EBER; Protocol Last Admin: 09/14/22 08:13 Dose: 12.5 mg Documented By: GIBRAN Multi-Ingred Cream/Lotion/Oil/Oint (Mineral Oil/Petrolatum,White 106 Gm Tube) 1 appl TOPICAL BID [facility]; Protocol Last Admin: 09/14/22 08:18 Dose: 1 appl Documented By: GIBRAN Omeprazole (Omeprazole 20 Mg Capsule.Dr) 20 mg PO DAILY@0630 [facility] Last Admin: 09/14/22 06:23 Dose: 20 mg Documented By: PHILL Oxycodone HCl (Oxycodone Hcl Immed Release 5 Mg Tablet) 5 mg PO Q4H PRN PRN Reason: Pain, Severe (Pain Scale 7-10) Last Admin: 09/14/22 06:26 Dose: 5 mg Documented By: PHILL Pharmacy Consult (Consult Rx Perform Med Rec) 1 each MISCELLANE ONCE PRN PRN Reason: Consult order Pharmacy Consult (Consult Rx Vancomycin Dosing) 1 each MISCELLANE DAILY PRN PRN Reason: Consult order Sodium Chloride (0.9 % Sodium Chloride Flush 3 Ml Syringe) 3 ml IVFLUSH QSHIFT [facility] Last Admin: 09/14/22 08:18 Dose: 3 ml Documented By: GIBRAN Vitamin D (Cholecalciferol (Vitamin D3) 25 Mcg Tablet) 25 mcg PO DAILY [facility] Last Admin: 09/14/22 08:17 Dose: 25 mcg Documented By: GIBRAN Labs 09/14/22 05:47 09/14/22 05:47 Labs: Laboratory Results - last 24 hr 09/13/22 09/13/22 09/13/22 15:58 15:59 15:59 MCV 79.7 L MCH 24.7 L MCHC 31.0 RDW 16.4 H Plt Count 334 D MPV 10.2 Immature Gran % (Auto) 0.4 Neut % (Auto) 63.0 Lymph % (Auto) 26.4 [place] % (Auto) 7.4 Eos % (Auto) 2.3 Baso % (Auto) 0.5 Lymph # (Auto) 2.6 [place] # (Auto) 0.7 Eos # (Auto) 0.2 Baso # (Auto) 0.1 Abs Immat Gran (auto) 0.04 H Absolute Neuts (auto) 6.3 Absolute Nucleated RBC 0.000 Nucleated RBC % (auto) 0.0 ESR Anion Gap 13 Estim Creat Clear Calc 23.0 Estimated GFR 27 POC Glucose Random Glucose 235 H Lactic Acid 1.5 Calcium 8.6 Magnesium 2.5 Total Bilirubin 0.5 AST 10 ALT 8 Alkaline Phosphatase 90 C-Reactive Protein 3.97 H Total Protein 6.6 Albumin 2.9 L COVID-19 (SHANA) COVID-19 Clin Com 09/13/22 09/13/22 09/13/22 15:59 18:10 20:26 MCV MCH MCHC RDW Plt Count MPV Immature Gran % (Auto) Neut % (Auto) Lymph % (Auto) [place] % (Auto) Eos % (Auto) Baso % (Auto) Lymph # (Auto) [place] # (Auto) Eos # (Auto) Baso # (Auto) Abs Immat Gran (auto) Absolute Neuts (auto) Absolute Nucleated RBC Nucleated RBC % (auto) ESR 95 H Anion Gap Estim Creat Clear Calc Estimated GFR POC Glucose 188 H Random Glucose Lactic Acid Calcium Magnesium Total Bilirubin AST ALT Alkaline Phosphatase C-Reactive Protein Total Protein Albumin COVID-19 (SHANA) Negative COVID-19 Clin Com See Note 09/14/22 09/14/22 09/14/22 05:47 05:47 07:27 MCV 80.3 MCH 24.8 L MCHC 30.9 L RDW 16.4 H Plt Count 351 MPV 10.5 Immature Gran % (Auto) Neut % (Auto) Lymph % (Auto) [place] % (Auto) Eos % (Auto) Baso % (Auto) Lymph # (Auto) [place] # (Auto) Eos # (Auto) Baso # (Auto) Abs Immat Gran (auto) Absolute Neuts (auto) Absolute Nucleated RBC 0.000 Nucleated RBC % (auto) 0.0 ESR Anion Gap 12 Estim Creat Clear Calc 29.9 Estimated GFR 37 POC Glucose 78 Random Glucose 89 Lactic Acid Calcium 9.5 D Magnesium Total Bilirubin AST ALT Alkaline Phosphatase C-Reactive Protein Total Protein Albumin COVID-19 (SHANA) COVID-19 Clin Com Assessment and Plan (1) Osteomyelitis: Status: Acute (2) PAD (peripheral artery disease): Status: Acute (3) Diabetic ulcer of toe: Status: Acute Plan 81-year-old male with a PMH significant for?COPD, CVA, HTN, insulin-dependent diabetes, dementia, and HLD who presents to the ED?from a SNF with pain at the site of a recent amputation of the first digit of his right foot. Pt was treated with ceftriaxone and vanco. Pt will be admitted to the hospital for treatment of osteomyelitis with IV antibiotics. possible acute osteomyelitis of 1st digit of right foot At site of recent toe amputation on 07/08/2022 for osteomyelitis secondary to diabetic foot ulcer X-ray suggestive of osteomyelitis, elevated ESR and CRP, no leukocytosis Patient not septic,Follow blood cultures IV ABX:? Vanco and levofloxacin Infectious disease consult, surgery consult/Wound care consult ELIZABETH on CKD Creatinine near baseline of around 1.7 Hold antihypertensives for now Hold off on IVF for now due to history of CHF Patient to receive albumin Follow BMP Low albumin Patient's albumin 2.9 continue albumin HTN BP soft, hold losartan, furosemide, amlodipine, hydralazine, and metoprolol for now Monitor BP, resume home meds as warranted HFpEF Not in acute exacerbation Hold furosemide due to low BP Insulin-dependent diabetes Continue Jardiance, hold home insulin SSI, Lantus HLD Continue statin Full Code DVT Prophylaxis: Lovenox inpatient need: osteomyelitis of the 1st digit of the right foot with IV antibiotics,moniter renal function and electrolytes for ELIZABETH, Vanco trough, also need infectious disease and surgery evaluation. Time Spent With Patient Time: Total time managing care of this patient today ____ minutes. Quality Stroke Does the patient have a stroke diagnosis?: No VTE Prior VTE?: No VTE Risk Level:: Medical - moderate - high VTE Device Contraindication: Treatment Not Indicated VTE Drug Contraindication: N/A - Med Ordered
[2022-09-14 11:26] LABS: Glucose, Whole Blood 304 mg/dL (60-115)
[2022-09-14] MEDS: Insulin Lispro 100 UNIT/ML 3 ML VIAL SUBCUT ×2 (11:29→21:20)
[2022-09-14 15:09] VITALS: BP 102/45; PULSE 77; RESP 18; TEMP 36.7; O2SAT 97
[2022-09-14 15:55] VITALS: BP 159/67; PULSE 73; RESP 16; TEMP 36.8; O2SAT 95
[2022-09-14 16:22] LABS: Glucose, Whole Blood 104 mg/dL (60-115)
[2022-09-14] MEDS: vancomycin HCL 750 MG in 0.9 % Sodium Chloride 250 ML 265 MG IV (17:53)
[2022-09-14 20:00] VITALS: BP 164/72; PULSE 83; RESP 20; TEMP 37.7; O2SAT 94
[2022-09-14] MEDS: Acetaminophen 325 MG TABLET 650 MG PO (20:15)
[2022-09-14] MEDS: Atorvastatin Calcium 80 MG TABLET PO (20:15)
[2022-09-14] MEDS: Enoxaparin Sodium 30 MG/0.3 ML SYRINGE SUBCUT (20:15)
[2022-09-14 20:21] LABS: Glucose, Whole Blood 220 mg/dL (60-115)
[2022-09-14] MEDS: Insulin Glargine,Hum.rec.anlog 100 UNIT/ML 10 ML VIAL 10 UNIT SUBCUT (21:20)
[2022-09-14 23:22] VITALS: BP 127/55; PULSE 74; RESP 16; TEMP 36.8; O2SAT 99
--- NOTE | 2022-09-14 23:32 | P.CNID_ITS ---
History of Present Illness Data of Consult Service Date: 09/14/22 Requesting physician: Fadia Russo Primary Care Provider: Tree aSha MD HPI Reason for consult: right foot infection He presents with right foot pain and swelling. He has had right 30 amputation first digit right foot. He has no fever or chills at this time. XR concern for osteomyelitis. Review of Systems Review of Systems: Yes all other systems are reviewed and are negative PMFSH Past Medical History Medical History Adenocarcinoma of right lung (~2020) COPD (chronic obstructive pulmonary disease) Dementia Diabetes Former smoker, stopped smoking in distant past History of CVA (cerebrovascular accident) (~07/2020) HTN (hypertension) Hyperlipidemia Pneumonia Family History Family history: reviewed and not pertinent Surgical History Surgical History History of lung biopsy (~10/2020) Social History Social History Household Members: Other Household Members Other:: senior living facility Housing: Other Housing Other:: senior living facility Do you presently have visiting nurse or other home services: No Alcohol intake: never Patient Tobacco Use Status: Former Tobacco user Use of substances other than those prescribed or required for medical reasons: No Currently Displaying Signs/Symptoms of Drug Intoxication Withdrawal: No Have you been hit, kicked, punched, or otherwise hurt by someone within the past year? If so, by whom?: No Do you feel safe in your current relationship?: No Current Relationship Is there a partner from a previous relationship who is making you feel unsafe now?: No Are you made to feel afraid or neglected: No Advance Directives: Yes Advance Directives on File: Yes Advance Directives Date on File: 05/24/21 Do you have thoughts of harming others: None Do you have a plan to hurt others: No Plan Recently lost weight without trying: No Nutrition Risks: No Nutritional Risk service: No Current occupational status: retired Meds Allergies Allergy/AdvReac Type Severity Reaction Status Date / Time Penicillins [PENICILLINS] Allergy Intermediate RASH Verified 07/11/22 12:27 Active Medications: Current Medications Acetaminophen (Acetaminophen 325 Mg Tablet) 650 mg PO Q6H PRN PRN Reason: Pain, Mild (Pain Scale 1-3) Last Admin: 09/14/22 20:15 Dose: 650 mg Aspirin (Aspirin 81 Mg Tab.Chew) 81 mg PO DAILY [facility] Last Admin: 09/14/22 08:11 Dose: 81 mg Atorvastatin Calcium (Atorvastatin Calcium 80 Mg Tablet) 80 mg PO BEDTIME [facility] Last Admin: 09/14/22 20:15 Dose: 80 mg Docusate Sodium (Docusate Sodium 100 Mg Capsule) 100 mg PO DAILY PRN PRN Reason: Constipation Empagliflozin (Empagliflozin 10 Mg Tablet) 10 mg PO DAILY [facility] Last Admin: 09/14/22 08:12 Dose: 10 mg Enoxaparin Sodium (Enoxaparin Sodium 30 Mg/0.3 Ml Syringe) 30 mg SUBCUT Q24H [facility] Last Admin: 09/14/22 20:15 Dose: 30 mg Glucose (Glucose Gel 15 Gm Gel..Gram.) 15 gm PO Q15M PRN; Protocol PRN Reason: per Hypoglycemia Standing Ord. Hydroxyzine HCl (Hydroxyzine Hcl 10 Mg Tablet) 10 mg PO TID [facility] Last Admin: 09/14/22 20:16 Dose: 10 mg Dextrose (D10) 250 mls @ 750 mls/hr IV Q15M PRN; Protocol PRN Reason: per Hypoglycemia Standing Ord. Levofloxacin (Levaquin) 750 mg in 150 mls @ 100 mls/hr IV Q48H [facility] Last Infusion: 09/13/22 23:40 Dose: Infused Vancomycin HCl 750 mg/ Sodium (Chloride) 265 mls @ 265 mls/hr IV Q24H [facility] Last Infusion: 09/14/22 18:50 Dose: Infused Albumin Human (Kedbumin 25 %) 100 mls @ 100 mls/hr IV Q12H [facility] Stop: 09/15/22 10:59 Last Admin: 09/14/22 21:53 Dose: 100 mls/hr Insulin Glargine (Insulin Glargine,Hum.Rec.Anlog 100 Unit/Ml 10 Ml Vial) 10 unit SUBCUT BEDTIME [facility] Last Admin: 09/14/22 21:20 Dose: 10 unit Insulin Human Lispro (Insulin Lispro 100 Unit/Ml 3 Ml Vial) 0 unit SUBCUT QIDACHS [facility]; Protocol Last Admin: 09/14/22 21:20 Dose: 4 unit Metoprolol Tartrate (Metoprolol Tartrate 12.5 Mg Halftab) 12.5 mg PO TID [facility]; Protocol Last Admin: 09/14/22 20:16 Dose: 12.5 mg Multi-Ingred Cream/Lotion/Oil/Oint (Mineral Oil/Petrolatum,White 106 Gm Tube) 1 appl TOPICAL BID [facility]; Protocol Last Admin: 09/14/22 21:22 Dose: 1 appl Omeprazole (Omeprazole 20 Mg Capsule.Dr) 20 mg PO DAILY@06 [facility] Last Admin: 09/14/22 06:23 Dose: 20 mg Oxycodone HCl (Oxycodone Hcl Immed Release 5 Mg Tablet) 5 mg PO Q4H PRN PRN Reason: Pain, Severe (Pain Scale 7-10) Last Admin: 09/14/22 20:16 Dose: 5 mg Pharmacy Consult (Consult Rx Perform Med Rec) 1 each MISCELLANE ONCE PRN PRN Reason: Consult order Pharmacy Consult (Consult Rx Vancomycin Dosing) 1 each MISCELLANE DAILY PRN PRN Reason: Consult order Sodium Chloride (0.9 % Sodium Chloride Flush 3 Ml Syringe) [facility] Admin: 09/14/22 20:16 Dose: 3 ml Vitamin D (Cholecalciferol (Vitamin D3) 25 Mcg Tablet) 25 mcg PO DAILY [facility] Last Admin: 09/14/22 08:17 Dose: 25 mcg Home Medications Medication Instructions Recorded Confirmed Last Taken Type amlodipine 10 mg tablet 10 mg PO BEDTIME 03/07/21 09/13/22 05/16/21 History atorvastatin 80 mg tablet 80 mg PO BEDTIME 03/07/21 09/13/22 05/16/21 History omeprazole 20 mg capsule,delayed 20 mg PO DAILY@0630 03/07/21 09/13/22 05/16/21 History release hydralazine 50 mg tablet 50 mg PO BID 07/07/21 09/13/22 Unknown History metoprolol succinate 50 mg 50 mg PO DAILY 07/07/21 09/13/22 Unknown History tablet,extended release 24 hr cholecalciferol (vitamin D3) 25 1 tab PO DAILY 01/17/22 09/13/22 Unknown History mcg (1,000 unit) tablet insulin glargine 100 unit/mL 15 unit subcut BEDTIME 01/17/22 09/13/22 Unknown History subcutaneous solution (Lantus U-100 Insulin) empagliflozin 10 mg tablet 10 mg PO DAILY 01/31/22 09/13/22 Unknown History (Jardiance) losartan 50 mg tablet 50 mg PO DAILY 01/31/22 09/13/22 Unknown History furosemide 40 mg tablet 40 mg BID 07/03/22 09/13/22 Unknown History aspirin 81 mg chewable tablet 81 mg PO DAILY 09/13/22 09/13/22 Unknown History hydroxyzine HCl 10 mg tablet 10 mg PO TID 09/13/22 09/13/22 Unknown History insulin lispro 100 unit/mL 1 sliding scale dose subcut 09/13/22 09/13/22 Unknown History subcutaneous cartridge USEASDIRECTD Physical Exam Vital Signs: Vital Signs: Last Vital Signs Temp 98.2 F 09/14/22 23:22 Pulse 74 09/14/22 23:22 Resp 16 09/14/22 23:22 BP 127/55 L 09/14/22 23:22 Pulse Ox 99 09/14/22 23:22 O2 Del Method Room Air 09/14/22 23:22 BMI result Body Mass Index 26.6 Const: General: cooperative HEENT: Head: Yes normal to inspection Face and sinus: Yes normal facial exam Mouth: Normal oral and palatal mucosa present Teeth and gingiva: dentition normal Eyes: General: appearance normal, both eyes and all related structures Pupils: Equal, round and reactive pupils present Resp: Effort & Inspection: normal respiratory effort Cardio: Rate: regular rate Rhythm: regular rhythm GI: Palpation (GI): Soft to palpation and nontender : General: Yes no CVA tenderness Back/Spine/Pelvis: Back: no CVA tenderness Skin: General skin exam: no rashes or lesions noted Neuro: General: moves all extremities Cranial nerves: Yes Equal, round and reactive pupils present Extrem: Other: right great toe area amputation site sutures still area reddened,swollen neuropathy Psych: Other: demented,confused Results Labs 09/14/22 05:47 09/14/22 05:47 Labs: Short CBC 09/14/22 Range/Units 05:47 WBC 11.5 H (4.8-10.8) X10*3/uL Hgb 8.7 L (14.0-18.0) g/dl Hct 28.2 L (42.0-52.0) % Plt Count 351 (160-400) X10*3/uL BMP 09/14/22 05:47 Sodium 143 Potassium 4.2 Chloride 102 Carbon Dioxide 33 H BUN 45 H Creatinine 1.78 H Calcium 9.5 D Microbiology Microbiology Results: Microbiology 09/13/22 16:08 Blood - Venous Blood Culture - Preliminary No growth after 24 hours. 09/13/22 15:59 Blood - Venous Blood Culture - Preliminary No growth after 24 hours. Assessment and Plan (1) Osteomyelitis: Status: Acute He has had Pseudomonas in June Levaquin covers this Vancomycin will cover gram positive ,staph /MRSA. (2) PAD (peripheral artery disease): Status: Acute (3) Diabetic ulcer of toe: Status: Acute Plan Would use Vancomycin and Levaquin Would likely give six weeks PICC line Vancomycin and po Levaquin. Follow Vascular Time Spent With Patient Time: Total time managing care of this patient today ____ minutes.
[2022-09-15 03:28] VITALS: BP 144/60; PULSE 73; RESP 16; TEMP 36.9; O2SAT 98
[2022-09-15] MEDS: Omeprazole 20 MG CAPSULE.DR PO (05:39)
[2022-09-15] MEDS: Acetaminophen 325 MG TABLET 650 MG PO ×2 (05:40→11:03)
[2022-09-15] MEDS: oxyCODONE HCl Immed Release 5 MG TABLET PO ×3 (05:40→16:59)
[2022-09-15 07:40] VITALS: BP 160/67; PULSE 80; RESP 18; TEMP 37.8; O2SAT 90
[2022-09-15 07:50] LABS: Glucose, Whole Blood 161 mg/dL (60-115)
[2022-09-15 08:00] VITALS: BP 138/64; PULSE 70; RESP 18; TEMP 37.8; O2SAT 90
[2022-09-15] MEDS: hydrOXYzine HCL 10 MG TABLET PO ×3 (09:06→20:11)
[2022-09-15] MEDS: Metoprolol Succinate ER 50 MG TAB.ER.24H PO (09:06)
[2022-09-15] MEDS: Aspirin 81 MG TAB.CHEW PO (09:06)
[2022-09-15] MEDS: Cholecalciferol (Vitamin D3) 25 MCG TABLET PO (09:06)
[2022-09-15] MEDS: Empagliflozin 10 MG TABLET PO (09:06)
[2022-09-15] MEDS: 0.9 % Sodium Chloride Flush 3 ML SYRINGE IVFLUSH ×2 (09:07→15:01)
[2022-09-15] MEDS: Insulin Lispro 100 UNIT/ML 3 ML VIAL SUBCUT ×3 (09:07→22:58)
[2022-09-15] MEDS: Albumin Human 25 % 100 ML IV (09:07)
--- NOTE | 2022-09-15 10:37 | P.PNIM_ITS ---
Subjective Subjective Date of Service: 09/15/22 Interval History: Possible foot cellulitis at the [facility] site suspicion for possible acute osteo. Review of Systems still has foot pain /erythema similar to yesterday. no fevers Physical Exam Vital Signs: Vital Signs: Last Vital Signs Temp 100.1 F 09/15/22 08:00 Pulse 70 09/15/22 08:00 Resp 18 09/15/22 08:00 BP 138/64 09/15/22 08:00 Pulse Ox 90 L 09/15/22 08:00 O2 Del Method Room Air 09/15/22 08:00 BMI result Body Mass Index 26.6 Appearance: Alert.? Oriented X3.? not in distress.? cvs: rrr, [id number] . res: clear to auscultation ,no rhonchii or wheezing abd: no rebound or guarding ,nt, bs present. ext pulses present , no cyanosis right foot -big toes area and foot seems similar to yesterday-mild erythema in foot /pain, no fluctuation or discharge-please see pictures (foot in h&p). neuro: axo3 , nonfocal. Objective Data Active Medications Acetaminophen (Acetaminophen 325 Mg Tablet) 650 mg PO Q6H PRN PRN Reason: Pain, Mild (Pain Scale 1-3) Last Admin: 09/15/22 05:40 Dose: 650 mg Documented By: JOSE FRANCISCO Aspirin (Aspirin 81 Mg Tab.Chew) 81 mg PO DAILY [facility] Last Admin: 09/15/22 09:06 Dose: 81 mg Documented By: GIBRAN Atorvastatin Calcium (Atorvastatin Calcium 80 Mg Tablet) 80 mg PO BEDTIME [facility] Last Admin: 09/14/22 20:15 Dose: 80 mg Documented By: JOSE FRANCISCO Docusate Sodium (Docusate Sodium 100 Mg Capsule) 100 mg PO DAILY PRN PRN Reason: Constipation Empagliflozin (Empagliflozin 10 Mg Tablet) 10 mg PO DAILY [facility] Last Admin: 09/15/22 09:06 Dose: 10 mg Documented By: GIBRAN Enoxaparin Sodium (Enoxaparin Sodium 30 Mg/0.3 Ml Syringe) 30 mg SUBCUT Q24H [facility] Last Admin: 09/14/22 20:15 Dose: 30 mg Documented By: JOSE FRANCISCO Glucose (Glucose Gel 15 Gm Gel..Gram.) 15 gm PO Q15M PRN; Protocol PRN Reason: per Hypoglycemia Standing Ord. Hydroxyzine HCl (Hydroxyzine Hcl 10 Mg Tablet) 10 mg PO TID [facility] Last Admin: 09/15/22 09:06 Dose: 10 mg Documented By: GIBRAN Dextrose (D10) 250 mls @ 750 mls/hr IV Q15M PRN; Protocol PRN Reason: per Hypoglycemia Standing Ord. Levofloxacin (Levaquin) 750 mg in 150 mls @ 100 mls/hr IV Q48H [facility] Last Infusion: 09/13/22 23:40 Dose: 0 mls/hr Documented By: PHILL Vancomycin HCl 750 mg/ Sodium (Chloride) 265 mls @ 265 mls/hr IV Q24H [facility] Last Infusion: 09/14/22 18:50 Dose: 0 mls/hr Documented By: GIBRAN Albumin Human (Kedbumin 25 %) 100 mls @ 100 mls/hr IV Q12H [facility] Stop: 09/15/22 10:59 Last Admin: 09/15/22 09:07 Dose: 100 mls/hr Documented By: GIBRAN Insulin Glargine (Insulin Glargine,Hum.Rec.Anlog 100 Unit/Ml 10 Ml Vial) 10 unit SUBCUT BEDTIME [facility] Last Admin: 09/14/22 21:20 Dose: 10 unit Documented By: JOSE FRANCISCO Insulin Human Lispro (Insulin Lispro 100 Unit/Ml 3 Ml Vial) 0 unit SUBCUT QIDACHS [facility]; Protocol Last Admin: 09/15/22 09:07 Dose: 2 unit Documented By: GIBRAN Metoprolol Succinate (Metoprolol Succinate Er 50 Mg Tab.Er.24h) 50 mg PO DAILY [facility]; Protocol Last Admin: 09/15/22 09:06 Dose: 50 mg Documented By: GIBRAN Multi-Ingred Cream/Lotion/Oil/Oint (Mineral Oil/Petrolatum,White 106 Gm Tube) 1 appl TOPICAL BID [facility]; Protocol Last Admin: 09/15/22 09:16 Dose: Not Given Documented By: GIBRAN Non-Admin Reason: Patient Refused Omeprazole (Omeprazole 20 Mg Darshan.) 20 mg PO DAILY@0630 [facility] Last Admin: 09/15/22 05:39 Dose: 20 mg Documented By: JOSE FRANCISCO Oxycodone HCl (Oxycodone Hcl Immed Release 5 Mg Tablet) 5 mg PO Q4H PRN PRN Reason: Pain, Severe (Pain Scale 7-10) Last Admin: 09/15/22 05:40 Dose: 5 mg Documented By: JOSE FRANCISCO Pharmacy Consult (Consult Rx Perform Med Rec) 1 each MISCELLANE ONCE PRN PRN Reason: Consult order Pharmacy Consult (Consult Rx Vancomycin Dosing) 1 each MISCELLANE DAILY PRN PRN Reason: Consult order Sodium Chloride (0.9 % Sodium Chloride Flush 3 Ml Syringe) 3 ml IVFLUSH QSHIFT [facility] Last Admin: 09/15/22 09:07 Dose: 3 ml Documented By: GIBRAN Vitamin D (Cholecalciferol (Vitamin D3) 25 Mcg Tablet) 25 mcg PO DAILY [facility] Last Admin: 09/15/22 09:06 Dose: 25 mcg Documented By: GIBRAN Labs 09/14/22 05:47 09/14/22 05:47 Labs: Laboratory Results - last 24 hr 09/14/22 09/14/22 09/14/22 11:10 16:17 19:42 POC Glucose 304 H 104 220 H 09/15/22 07:43 POC Glucose 161 H Microbiology Microbiology Results: Microbiology 09/13/22 16:08 Blood Culture - Preliminary Blood - Venous No growth after 24 hours. 09/13/22 15:59 Blood Culture - Preliminary Blood - Venous No growth after 24 hours. Assessment and Plan (1) Osteomyelitis: Status: Acute (2) PAD (peripheral artery disease): Status: Acute (3) Diabetic ulcer of toe: Status: Acute Plan 81-year-old male with a PMH significant for?COPD, CVA, HTN, insulin-dependent diabetes, dementia, and HLD who presents to the ED?from a SNF with pain at the site of a recent amputation of the first digit of his right foot. Pt was treated with ceftriaxone and vanco. Pt will be admitted to the hospital for treatment of osteomyelitis with IV antibiotics. possible acute osteomyelitis of 1st digit of right foot( stump area)due to dm 2. he was in the hospital in July that time had amputation of 5th toe due to osteomyelitis. At site of recent toe amputation on 07/08/2022 for osteomyelitis secondary to diabetic foot ulcer X-ray suggestive of osteomyelitis, elevated ESR and CRP, no leukocytosis Patient not septic,Follow blood cultures IV ABX:? Vanco and levofloxacin Infectious disease consult, surgery consult/Wound care consult ELIZABETH on CKD Creatinine near baseline of around 1.7 Hold antihypertensives for now Hold off on IVF for now due to history of CHF Patient to receive albumin Follow BMP Low albumin Patient's albumin 2.9 continue albumin HTN BP soft, hold losartan, furosemide, amlodipine, hydralazine, and metoprolol for now Monitor BP, resume home meds as warranted HFpEF Not in acute exacerbation Hold furosemide due to low BP Insulin-dependent diabetes Continue Jardiance, hold home insulin SSI, Lantus HLD Continue statin Full Code DVT Prophylaxis: Lovenox inpatient need: osteomyelitis of the 1st digit of the right foot with IV antibiotics,moniter renal function and electrolytes for ELIZABETH, Vanco trough, also need infectious disease and surgery evaluation. Time Spent With Patient Time: Total time managing care of this patient today ____ minutes. Quality Stroke Does the patient have a stroke diagnosis?: No VTE Prior VTE?: No VTE Risk Level:: Medical - moderate - high VTE Device Contraindication: Treatment Not Indicated VTE Drug Contraindication: N/A - Med Ordered
[2022-09-15 11:32] LABS: Glucose, Whole Blood 304 mg/dL (60-115)
[2022-09-15] MEDS: Morphine Sulfate 4 MG/ML CARTRIDGE IVPUSH (14:58)
[2022-09-15 15:44] LABS: Vancomycin Random 15.6 mcg/mL (15-20)
[2022-09-15 15:45] LABS: Anion Gap 13 (12-20); Blood Urea Nitrogen 31 mg/dL (9-16); Carbon Dioxide 32 mmol/L (22-29); Chloride 102 mmol/L (96-108); Creatinine Clr Calc Pharmacy 32.6; Estimated Glomerular Filt Rate 41; Glucose Random 206 mg/dL (60-115); Potassium 4.1 mmol/L (3.3-5.1); Sodium 143 mmol/L (135-145)
[2022-09-15 15:55] VITALS: BP 161/70; PULSE 71; RESP 18; TEMP 37.4; O2SAT 92
[2022-09-15 16:00] VITALS: TEMP 37.4
--- NOTE | 2022-09-15 16:06 | MHC.CM.PN ---
PT IN FROM [facility] [place] WHERE HE WAS RECEIVING STR HE TYPICALLY LIVES AT HOME WITH HIS S/O AND HAS DATA [employer] [facility] PT USES A CANE PRN HE IS SHERRY SCHAFERX PCP CELESTINA SINGLETON HCP ON FILE PTS HCP, JOLYNN [phone] REPORTS THE PT WAS SUPPOSED TO BE COMING HOME THIS FRIDAY HOWEVER SHE IS UNSURE BECAUSE PT MAY BE MORE DECONDITIONED AND HAVE MORE PAIN SO SHE IS UNSURE IF HE WILL STILL BE READY TO COME HOME THAT SOON. SHE REQUESTS A REFERRAL TO [facility] ALTHOUGH SHE KNOWS HE WILL LIKELY HAVE TO RETURN TO [facility]. PTS MEDICARE RIGHTS WERE REVIEWED WITH JOLYNN, COPY AT BEDSIDE PER DISCUSSION DCP TBD PENDING PT EVAL HOME WITH RESUMPTION OF CARE VS RETURN TO STR TRANSPORT TBD BY DISPO
[2022-09-15 16:23] LABS: Glucose, Whole Blood 199 mg/dL (60-115)
[2022-09-15] MEDS: vancomycin HCL 750 MG in 0.9 % Sodium Chloride 250 ML 265 MG IV (17:04)
[2022-09-15] MEDS: Atorvastatin Calcium 80 MG TABLET PO (20:11)
[2022-09-15] MEDS: Enoxaparin Sodium 30 MG/0.3 ML SYRINGE SUBCUT (20:11)
--- NOTE | 2022-09-15 21:29 | P.EN_ITS ---
Event Note Date of Service: 09/15/22 Event Note: Patient IV line infiltrated, he is restless, not following command, using electrician helper powerhouse to speak to the patient, his not cooperating. Not allowing nurses to place IV line. Will need IV line for IV antibiotics. He is complaining of pain in his foot. Will administer Haldol and morphine IM, an attempt IV line once patient is more calm Time Spent With Patient Time: Total time managing care of this patient today ____ minutes.
[2022-09-15] MEDS: Morphine Sulfate 4 MG/ML CARTRIDGE IM (21:42)
[2022-09-15] MEDS: Haloperidol Lactate 5 MG/ML VIAL IM (21:43)
[2022-09-15 22:41] LABS: Glucose, Whole Blood 199 mg/dL (60-115)
[2022-09-15] MEDS: levoFLOXacin/D5W 750 MG/150 ML PIGGYBACK 100 MG IV (22:57)
[2022-09-15] MEDS: Mineral Oil/Petrolatum,White 106 GM Tube 1 APPL TOPICAL (22:58)
[2022-09-15] MEDS: Insulin Glargine,Hum.rec.anlog 100 UNIT/ML 10 ML VIAL 10 UNIT SUBCUT (22:58)
[2022-09-15 23:10] VITALS: BP 114/65; PULSE 95; RESP 17; TEMP 38.1; O2SAT 92
[2022-09-16] MEDS: Acetaminophen Supp 650 MG SUPP.RECT PR
[2022-09-16 00:34] LABS: Lactic Acid 1.9 mmol/L (0.5-2.0)
[2022-09-16 01:00] VITALS: TEMP 38.1
[2022-09-16] MEDS: Morphine Sulfate 4 MG/ML CARTRIDGE IVPUSH ×2 (01:54→05:26)
[2022-09-16 03:54] VITALS: BP 149/66; PULSE 75; RESP 17; TEMP 36.8; O2SAT 94
[2022-09-16] MEDS: oxyCODONE HCl Immed Release 5 MG TABLET PO ×4 (03:59→21:10)
[2022-09-16] MEDS: Omeprazole 20 MG CAPSULE.DR PO (05:27)
[2022-09-16 07:32] VITALS: BP 157/73; PULSE 83; RESP 18; TEMP 36.6; TEMP 36.9; O2SAT 90
[2022-09-16 07:44] LABS: Glucose, Whole Blood 141 mg/dL (60-115)
[2022-09-16] MEDS: Aspirin 81 MG TAB.CHEW PO (08:24)
[2022-09-16] MEDS: Docusate Sodium 100 MG CAPSULE PO (08:24)
[2022-09-16] MEDS: hydrOXYzine HCL 10 MG TABLET PO ×2 (08:24→14:30)
[2022-09-16] MEDS: Cholecalciferol (Vitamin D3) 25 MCG TABLET PO (08:24)
[2022-09-16] MEDS: Empagliflozin 10 MG TABLET PO (08:24)
[2022-09-16] MEDS: Metoprolol Succinate ER 50 MG TAB.ER.24H PO (08:24)
[2022-09-16] MEDS: Acetaminophen 325 MG TABLET 650 MG PO ×3 (08:26→21:09)
[2022-09-16] MEDS: 0.9 % Sodium Chloride Flush 3 ML SYRINGE IVFLUSH ×3 (08:28→21:10)
[2022-09-16] MEDS: polyethylene glycoL 3350 17 GM POWD.PACK PO ×2 (08:28→21:09)
[2022-09-16] MEDS: Mineral Oil/Petrolatum,White 106 GM Tube 1 APPL TOPICAL ×2 (08:28→21:11)
--- NOTE | 2022-09-16 09:44 | P.CDIM_ITS ---
PROVIDER RESPONSE TEXT: To clarify, the appropriate diagnosis supported by the clinical indicators: Other (explain): elizabeth on ckd ( unable to determine since cr is labile) QUERY TEXT: PHYSICIAN'S DOCUMENTATION REQUEST Date of Query: 09/16/2022 09:08 AM EDT Patient Name: Jerome Ro Admit Date: 09/13/2022 Dear Fadia Russo, A review of the medical record indicates additional documentation may be needed. Please review below and update the documentation accordingly. Clinical Indicators: PN: 09/14 - ELIZABETH on CKD, creatinine near baseline of around 1.7. Hold antihypertensives for now. Please clarify which of the following accurately represents the patient's renal status: ELIZABETH on CKD Stage 1 ELIZABETH on CKD Stage 2 ELIZABETH on CKD Stage 3 Other stage of CKD if known Other (explain) Clinically unable to determine (explain) Thank you, Yessenia Larson, CCS, CDIS Use of terms such as suspected, likely, concern for, or probable (associated with a specific diagnosi s that is being evaluated, monitored, or treated as if it exists) are acceptable and can be coded in the inpatient se tting, when documented at the time of discharge. Please use your independent medical judgment in providing your response. THIS QUERY IS PART OF THE PERMANENT MEDICAL RECORD
--- NOTE | 2022-09-16 09:50 | MHC.CM.PN ---
ROSS DON (BEDHOLD) UPDATED IN [facility]. CASE MANAGEMENT FOLLOWING FOR HIS RETURN
[2022-09-16 10:22] LABS: Hematocrit 26.3 % (42.0-52.0); Hemoglobin 7.9 g/dl (14.0-18.0); Mean Corpuscular Hemoglobin 24.6 pg (27.0-33.0); Mean Corpuscular Volume 81.9 fL (80.0-98.0); Mean Platelet Volume 10.6 fL (9.4-12.4); Platelet Count 319 X10*3/uL (160-400); Red Blood Count 3.21 X10*6/uL (4.60-5.80); Red Cell Distribution Width 16.6 % (11.0-16.0); White Blood Count 14.1 X10*3/uL (4.8-10.8)
[2022-09-16 10:52] LABS: Anion Gap 13 (12-20); Blood Urea Nitrogen 29 mg/dL (9-16); Calcium 9.2 mg/dL (8.4-10.2); Carbon Dioxide 30 mmol/L (22-29); Chloride 101 mmol/L (96-108); Creatinine Clr Calc Pharmacy 31.3; Estimated Glomerular Filt Rate 39; Glucose Random 266 mg/dL (60-115); Potassium 3.9 mmol/L (3.3-5.1); Sodium 140 mmol/L (135-145)
--- NOTE | 2022-09-16 11:15 | P.CDIM_ITS ---
PROVIDER RESPONSE TEXT: To clarify, the appropriate diagnosis supported by the clinical indicators: Other (explain): hypoalbuminemia: possible due to decreased po inatke QUERY TEXT: PHYSICIAN'S DOCUMENTATION REQUEST Date of Query: 09/16/2022 10:36 AM EDT Patient Name: Jerome Ro Admit Date: 09/13/2022 Dear Fadia Russo, A review of the medical record indicates additional documentation may be needed. Please review below and update the documentation accordingly. Clinical Indicators: PN: Assessment and plan - Low albumin, patients albumin is at 2.9 Continue Albumin Based on the above, could you clarify the appropriate diagnosis, if significant, that supports the ab ove abnormalities and additional evaluation, monitoring, and/or treatment rendered: Hypoalbuminemia or other etiology of lab findings Other or unable to determine Other (explain) Clinically unable to determine (explain) Thank you, Yessenia Larson, CCS, CDIS Use of terms such as suspected, likely, concern for, or probable (associated with a specific diagnosi s that is being evaluated, monitored, or treated as if it exists) are acceptable and can be coded in the inpatient se tting, when documented at the time of discharge. Please use your independent medical judgment in providing your response. THIS QUERY IS PART OF THE PERMANENT MEDICAL RECORD
--- NOTE | 2022-09-16 11:17 | P.CONNP_ITS ---
History of Present Illness Reason for Consult Consult date: 09/16/22 Chief Complaint Chief complaint: Right foot soreness History of Present Illness Narrative: 81-year-old male with a PMH significant for?COPD, CVA, HTN, insulin-dependent diabetes, dementia, and HLD who presents to the ED?from a SNF with pain at the site of a recent amputation of the first digit of his right foot. Pt was treated with ceftriaxone and vanco. Pt was be admitted to the hospital for treatment of osteomyelitis with IV antibiotics. His serum creatinine has gone up to baseline. Nephrology has been consulted to assist in his clinical care during his current hospital stay Review of Systems Review of Systems Yes all other systems are reviewed and are negative PMFSH Past Medical History Medical History Adenocarcinoma of right lung (~2020) COPD (chronic obstructive pulmonary disease) Dementia Diabetes Former smoker, stopped smoking in distant past History of CVA (cerebrovascular accident) (~07/2020) HTN (hypertension) Hyperlipidemia Pneumonia Family History Family history: reviewed and not pertinent Surgical History Surgical History History of lung biopsy (~10/2020) Social History Social History Household Members: Other Household Members Other:: detention facility Housing: Other Housing Other:: detention facility Do you presently have visiting nurse or other home services: No Alcohol intake: never Patient Tobacco Use Status: Former Tobacco user Use of substances other than those prescribed or required for medical reasons: No Currently Displaying Signs/Symptoms of Drug Intoxication Withdrawal: No Have you been hit, kicked, punched, or otherwise hurt by someone within the past year? If so, by whom?: No Do you feel safe in your current relationship?: No Current Relationship Is there a partner from a previous relationship who is making you feel unsafe now?: No Are you made to feel afraid or neglected: No Advance Directives: Yes Advance Directives on File: Yes Advance Directives Date on File: 05/24/21 Do you have thoughts of harming others: None Do you have a plan to hurt others: No Plan Recently lost weight without trying: No Nutrition Risks: No Nutritional Risk service: No Current occupational status: retired Meds Allergies Allergy/AdvReac Type Severity Reaction Status Date / Time Penicillins [PENICILLINS] Allergy Intermediate RASH Verified 07/11/22 12:27 Active Medications: Current Medications Acetaminophen (Acetaminophen 325 Mg Tablet) 650 mg PO Q6H PRN PRN Reason: Pain, Mild (Pain Scale 1-3) Last Admin: 09/16/22 08:26 Dose: 650 mg Aspirin (Aspirin 81 Mg Tab.Chew) 81 mg PO DAILY [facility] Last Admin: 09/16/22 08:24 Dose: 81 mg Atorvastatin Calcium (Atorvastatin Calcium 80 Mg Tablet) 80 mg PO BEDTIME [facility] Last Admin: 09/15/22 20:11 Dose: 80 mg Docusate Sodium (Docusate Sodium 100 Mg Capsule) 100 mg PO DAILY [facility] Last Admin: 09/16/22 08:24 Dose: 100 mg Empagliflozin (Empagliflozin 10 Mg Tablet) 10 mg PO DAILY [facility] Last Admin: 09/16/22 08:24 Dose: 10 mg Enoxaparin Sodium (Enoxaparin Sodium 30 Mg/0.3 Ml Syringe) 30 mg SUBCUT Q24H [facility] Last Admin: 09/15/22 20:11 Dose: 30 mg Glucose (Glucose Gel 15 Gm Gel..Gram.) 15 gm PO Q15M PRN; Protocol PRN Reason: per Hypoglycemia Standing Ord. Hydromorphone HCl (Hydromorphone Hcl 1 Mg/Ml Syringe) 1 mg IVPUSH Q4H PRN; Protocol PRN Reason: Pain, Mild (Pain Scale 1-3) Hydroxyzine HCl (Hydroxyzine Hcl 10 Mg Tablet) 10 mg PO TID [facility] Last Admin: 09/16/22 08:24 Dose: 10 mg Dextrose (D10) 250 mls @ 750 mls/hr IV Q15M PRN; Protocol PRN Reason: per Hypoglycemia Standing Ord. Levofloxacin (Levaquin) 750 mg in 150 mls @ 100 mls/hr IV Q48H [facility] Last Infusion: 09/16/22 00:29 Dose: Infused Vancomycin HCl 750 mg/ Sodium (Chloride) 265 mls @ 265 mls/hr IV Q24H [facility] Last Infusion: 09/15/22 20:12 Dose: Infused Insulin Glargine (Insulin Glargine,Hum.Rec.Anlog 100 Unit/Ml 10 Ml Vial) 10 unit SUBCUT BEDTIME [facility] Last Admin: 09/15/22 22:58 Dose: 10 unit Insulin Human Lispro (Insulin Lispro 100 Unit/Ml 3 Ml Vial) 0 unit SUBCUT QIDACHS [facility]; Protocol Last Admin: 09/16/22 07:52 Dose: Not Given Metoprolol Succinate (Metoprolol Succinate Er 50 Mg Tab.Er.24h) 50 mg PO DAILY [facility]; Protocol Last Admin: 09/16/22 08:24 Dose: 50 mg Multi-Ingred Cream/Lotion/Oil/Oint (Mineral Oil/Petrolatum,White 106 Gm Tube) 1 appl TOPICAL BID [facility]; Protocol Last Admin: 09/16/22 08:28 Dose: 1 appl Omeprazole (Omeprazole 20 Mg Capsule.Dr) 20 mg PO DAILY@629 [facility] Last Admin: 09/16/22 05:27 Dose: 20 mg Oxycodone HCl (Oxycodone Hcl Immed Release 5 Mg Tablet) 5 mg PO Q4H PRN PRN Reason: Pain, Severe (Pain Scale 7-10) Last Admin: 09/16/22 08:27 Dose: 5 mg Pharmacy Consult (Consult Rx Perform Med Rec) 1 each MISCELLANE ONCE PRN PRN Reason: Consult order Pharmacy Consult (Consult Rx Vancomycin Dosing) 1 each MISCELLANE DAILY PRN PRN Reason: Consult order Polyethylene Glycol (Polyethylene Glycol 3350 17 Gm Powd.Pack) 17 gm PO DAILY [facility] Polyethylene Glycol (Polyethylene Glycol 3350 17 Gm Powd.Pack) 17 gm PO BID [facility] Sodium Chloride (0.9 % Sodium Chloride Flush 3 Ml Syringe) 3 ml IVFLUSH QSHIFT [facility] Last Admin: 09/16/22 08:28 Dose: 3 ml Vitamin D (Cholecalciferol (Vitamin D3) 25 Mcg Tablet) 25 mcg PO DAILY [facility] Last Admin: 09/16/22 08:24 Dose: 25 mcg Home Medications Medication Instructions Recorded Confirmed Last Taken Type amlodipine 10 mg tablet 10 mg PO BEDTIME 03/07/21 09/13/22 05/16/21 History atorvastatin 80 mg tablet 80 mg PO BEDTIME 03/07/21 09/13/22 05/16/21 History omeprazole 20 mg capsule,delayed 20 mg PO DAILY@0630 03/07/21 09/13/22 05/16/21 History release hydralazine 50 mg tablet 50 mg PO BID 07/07/21 09/13/22 Unknown History metoprolol succinate 50 mg 50 mg PO DAILY 07/07/21 09/13/22 Unknown History tablet,extended release 24 hr cholecalciferol (vitamin D3) 25 1 tab PO DAILY 01/17/22 09/13/22 Unknown History mcg (1,000 unit) tablet insulin glargine 100 unit/mL 15 unit subcut BEDTIME 01/17/22 09/13/22 Unknown History subcutaneous solution (Lantus U-100 Insulin) empagliflozin 10 mg tablet 10 mg PO DAILY 01/31/22 09/13/22 Unknown History (Jardiance) losartan 50 mg tablet 50 mg PO DAILY 01/31/22 09/13/22 Unknown History furosemide 40 mg tablet 40 mg BID 07/03/22 09/13/22 Unknown History aspirin 81 mg chewable tablet 81 mg PO DAILY 09/13/22 09/13/22 Unknown History hydroxyzine HCl 10 mg tablet 10 mg PO TID 09/13/22 09/13/22 Unknown History insulin lispro 100 unit/mL 1 sliding scale dose subcut 09/13/22 09/13/22 Unknown History subcutaneous cartridge [id number] Physical Exam Vital Signs: Last Vital Signs Temp 98.4 F 09/16/22 07:32 Pulse 83 09/16/22 07:32 Resp 18 09/16/22 07:32 BP 157/73 H 09/16/22 07:32 Pulse Ox 90 L 09/16/22 07:32 O2 Del Method Room Air 09/16/22 07:32 BMI result Body Mass Index 26.6 Const General: no acute distress Neck Neck: Yes supple Resp Auscultation: diminished lung sounds Cardio Rate: regular rate GI Palpation (GI): Soft to palpation Neuro General: moves all extremities Results Lab Results 09/16/22 10:10 09/16/22 10:10 Lab results: Chemistry 09/13/22 09/14/22 09/15/22 15:59 05:47 15:08 Sodium 138 143 143 Potassium 4.3 4.2 4.1 Carbon Dioxide 30 H 33 H 32 H BUN 58 H 45 H 31 H Creatinine 2.31 H 1.78 H 1.63 H Calcium 8.6 9.5 D 10.0 09/16/22 10:10 Sodium 140 Potassium 3.9 Carbon Dioxide 30 H BUN 29 H Creatinine 1.70 H Calcium 9.2 D Hematology 09/13/22 09/14/22 09/16/22 15:59 05:47 10:10 WBC 10.0 11.5 H 14.1 H Hgb 8.5 L 8.7 L 7.9 L Plt Count 334 D 351 319 Assessment and Plan (1) Chronic kidney disease, stage 3b: Status: Acute Plan Has CKD 3 at baseline CKD likely due to vascular disease Had been on ARB/Diuretics which has been on hold If serum creatinine goes up, Shall hold SGLT 2 inhibitor Is at risk for contrast nephropathy and will need hydration 6 hours prior to angio Avoid hypotension/ NSAIDs; C/W rest of current supportive management Procedures Date of Service Date of Service: 09/16/22
--- NOTE | 2022-09-16 11:36 | HO.PM.IMPN ---
Subjective Subjective Date of Service: 09/16/22 Interval History: Toxic metabolic encephalopathy, acute osteomyelitis. Review of Systems Patient seems somewhat confused than yesterday Overnight received: Haldokentrell overnight also has low grade fevers Seems more awake and alert knows his name and daytime, answers simple questions Physical Exam Vital Signs: Vital Signs: Last Vital Signs Temp 98.4 F 09/16/22 07:32 Pulse 83 09/16/22 07:32 Resp 18 09/16/22 07:32 BP 157/73 H 09/16/22 07:32 Pulse Ox 90 L 09/16/22 07:32 O2 Del Method Room Air 09/16/22 07:32 BMI result Body Mass Index 26.6 Appearance: Alert.? Oriented X2.? somwhat sleepy cvs: rrr, [id number] . res: clear to auscultation ,no rhonchii or wheezing abd: no rebound or guarding ,nt, bs present. ext pulses present , no cyanosis right foot -big toes area and foot seems similar to yesterday-mild erythema in foot /pain, no fluctuation or discharge-please see pictures (foot in h&p). neuro: axo3 , nonfocal. Objective Data Active Medications Acetaminophen (Acetaminophen 325 Mg Tablet) 650 mg PO Q6H PRN PRN Reason: Pain, Mild (Pain Scale 1-3) Last Admin: 09/16/22 08:26 Dose: 650 mg Documented By: EDGAR Aspirin (Aspirin 81 Mg Tab.Chew) 81 mg PO DAILY [facility] Last Admin: 09/16/22 08:24 Dose: 81 mg Documented By: EDGAR Atorvastatin Calcium (Atorvastatin Calcium 80 Mg Tablet) 80 mg PO BEDTIME [facility] Last Admin: 09/15/22 20:11 Dose: 80 mg Documented By: BROOKE Docusate Sodium (Docusate Sodium 100 Mg Capsule) 100 mg PO DAILY [facility] Last Admin: 09/16/22 08:24 Dose: 100 mg Documented By: EDGAR Empagliflozin (Empagliflozin 10 Mg Tablet) 10 mg PO DAILY [facility] Last Admin: 09/16/22 08:24 Dose: 10 mg Documented By: EDGAR Enoxaparin Sodium (Enoxaparin Sodium 30 Mg/0.3 Ml Syringe) 30 mg SUBCUT Q24H [facility] Last Admin: 09/15/22 20:11 Dose: 30 mg Documented By: BROOKE Glucose (Glucose Gel 15 Gm Gel..Gram.) 15 gm PO Q15M PRN; Protocol PRN Reason: per Hypoglycemia Standing Ord. Hydromorphone HCl (Hydromorphone Hcl 1 Mg/Ml Syringe) 1 mg IVPUSH Q4H PRN; Protocol PRN Reason: Pain, Mild (Pain Scale 1-3) Hydroxyzine HCl (Hydroxyzine Hcl 10 Mg Tablet) 10 mg PO TID [facility] Last Admin: 09/16/22 08:24 Dose: 10 mg Documented By: EDGAR Dextrose (D10) 250 mls @ 750 mls/hr IV Q15M PRN; Protocol PRN Reason: per Hypoglycemia Standing Ord. Levofloxacin (Levaquin) 750 mg in 150 mls @ 100 mls/hr IV Q48H [facility] Last Infusion: 09/16/22 00:29 Dose: 0 mls/hr Documented By: BROOKE Vancomycin HCl 750 mg/ Sodium (Chloride) 265 mls @ 265 mls/hr IV Q24H [facility] Last Infusion: 09/15/22 20:12 Dose: 0 mls/hr Documented By: BROOKE Insulin Glargine (Insulin Glargine,Hum.Rec.Anlog 100 Unit/Ml 10 Ml Vial) 10 unit SUBCUT BEDTIME [facility] Last Admin: 09/15/22 22:58 Dose: 10 unit Documented By: BROOKE Insulin Human Lispro (Insulin Lispro 100 Unit/Ml 3 Ml Vial) 0 unit SUBCUT QIDACHS [facility]; Protocol Last Admin: 09/16/22 07:52 Dose: Not Given Documented By: EDGAR Non-Admin Reason: No Insulin Coverage Metoprolol Succinate (Metoprolol Succinate Er 50 Mg Tab.Er.24h) 50 mg PO DAILY [facility]; Protocol Last Admin: 09/16/22 08:24 Dose: 50 mg Documented By: EDGAR Multi-Ingred Cream/Lotion/Oil/Oint (Mineral Oil/Petrolatum,White 106 Gm Tube) 1 appl TOPICAL BID [facility]; Protocol Last Admin: 09/16/22 08:28 Dose: 1 appl Documented By: EDGAR Omeprazole (Omeprazole 20 Mg Darshan.) 20 mg PO DAILY@0630 [facility] Last Admin: 09/16/22 05:27 Dose: 20 mg Documented By: BROOKE Oxycodone HCl (Oxycodone Hcl Immed Release 5 Mg Tablet) 5 mg PO Q4H PRN PRN Reason: Pain, Severe (Pain Scale 7-10) Last Admin: 09/16/22 08:27 Dose: 5 mg Documented By: EDGAR Pharmacy Consult (Consult Rx Perform Med Rec) 1 each MISCELLANE ONCE PRN PRN Reason: Consult order Pharmacy Consult (Consult Rx Vancomycin Dosing) 1 each MISCELLANE DAILY PRN PRN Reason: Consult order Polyethylene Glycol (Polyethylene Glycol 3350 17 Gm Powd.Pack) 17 gm PO DAILY [facility] Polyethylene Glycol (Polyethylene Glycol 3350 17 Gm Powd.Pack) 17 gm PO BID [facility] Sodium Chloride (0.9 % Sodium Chloride Flush 3 Ml Syringe) 3 ml IVFLUSH QSHIFT [facility] Last Admin: 09/16/22 08:28 Dose: 3 ml Documented By: EDGAR Vitamin D (Cholecalciferol (Vitamin D3) 25 Mcg Tablet) 25 mcg PO DAILY [facility] Last Admin: 09/16/22 08:24 Dose: 25 mcg Documented By: EDGAR Labs 09/16/22 10:10 09/16/22 10:10 Labs: Laboratory Results - last 24 hr 09/15/22 09/15/22 09/15/22 15:08 15:08 16:16 MCV MCH MCHC RDW Plt Count MPV Absolute Nucleated RBC Nucleated RBC % (auto) Anion Gap 13 Estim Creat Clear Calc 32.6 Estimated GFR 41 POC Glucose 199 H Random Glucose 206 H Lactic Acid Calcium 10.0 Random Vancomycin 15.6 09/15/22 09/16/22 09/16/22 22:34 00:01 07:30 MCV MCH MCHC RDW Plt Count MPV Absolute Nucleated RBC Nucleated RBC % (auto) Anion Gap Estim Creat Clear Calc Estimated GFR POC Glucose 199 H 141 H Random Glucose Lactic Acid 1.9 Calcium Random Vancomycin 09/16/22 09/16/22 10:10 10:10 MCV 81.9 MCH 24.6 L MCHC 30.0 L RDW 16.6 H Plt Count 319 MPV 10.6 Absolute Nucleated RBC 0.000 Nucleated RBC % (auto) 0.0 Anion Gap 13 Estim Creat Clear Calc 31.3 Estimated GFR 39 POC Glucose Random Glucose 266 H Lactic Acid Calcium 9.2 D Random Vancomycin Microbiology Microbiology Results: Microbiology 09/13/22 16:08 Blood Culture - Preliminary Blood - Venous No growth after 48 hours. 09/13/22 15:59 Blood Culture - Preliminary Blood - Venous No growth after 48 hours. Assessment and Plan (1) Encephalopathy: Status: Acute (2) Chronic kidney disease, stage 3b: Status: Acute (3) Osteomyelitis: Status: Acute Plan 81-year-old male with a PMH significant for?COPD, CVA, HTN, insulin-dependent diabetes, dementia, and HLD who presents to the ED?from a SNF with pain at the site of a recent amputation of the first digit of his right foot. Pt was treated with ceftriaxone and vanco. Pt will be admitted to the hospital for treatment of osteomyelitis with IV antibiotics. Toxic metabolic encpehalopathy: ? multifcatorial ( halodol, pain ,[place] on ckd) ct head -no new changes will continue supportive care ,neuro eval. possible acute osteomyelitis of 1st digit of right foot( stump area)due to dm 2. he was in the hospital in July that time had amputation of 5th toe due to osteomyelitis. At site of recent toe amputation on 07/08/2022 for osteomyelitis secondary to diabetic foot ulcer X-ray suggestive of osteomyelitis, elevated ESR and CRP, no leukocytosis Patient not septic,Follow blood cultures Infectious disease -IV ABX:? Vanco and levofloxacin, vanco trough vascular eval pending [place] on CKD Creatinine near baseline of around 1.7 Hold antihypertensives and diuretics for now received albumin Follow BMP Low albumin due to decreaed po intake. Patient's albumin 2.9 continue? albumin nutrionist eval HTN BP soft, hold losartan, furosemide, amlodipine, hydralazine, and metoprolol for now Monitor BP, resume home meds as warranted HFpEF: stable Not in acute exacerbation Hold furosemide due to low BP Insulin-dependent diabetes Continue Jardiance, hold home insulin SSI, Lantus HLD Continue statin Full Code DVT Prophylaxis: Lovenox inpatient need: osteomyelitis of the 1st digit of the right foot with IV antibiotics,moniter renal function and electrolytes for [place], Vanco trough, also need infectious disease and vascular surgery evaluation. Time Spent With Patient Time: Total time managing care of this patient today ____ minutes. Quality Stroke Does the patient have a stroke diagnosis?: No VTE Prior VTE?: No VTE Risk Level:: Medical - moderate - high VTE Device Contraindication: Treatment Not Indicated VTE Drug Contraindication: N/A - Med Ordered
[2022-09-16 12:08] LABS: Glucose, Whole Blood 248 mg/dL (60-115)
--- NOTE | 2022-09-16 14:06 | PM.NEUROCN ---
History of Present Illness Data of Consult Service Date: 09/16/22 Primary Care Provider: Tree Saha MD HPI Reason for consult: encephalopathy 81-year-old male with a PMH significant for?COPD, CVA, HTN, insulin-dependent diabetes, dementia, and HLD who presents to the ED?from a SNF with pain at the site of a recent amputation of the first digit of his right foot. Surgery was performed by Dr. Tee on 07/08/2022. Pt with baseline dementia, significant HPI thus difficult to obtain. this consultation was requested for explanation of confusion. He was noted by the nursing staff and the family that his mental status is changed and he was confused. No evidence of seizure-type activity. Review of Systems Review of Systems: Could not be done with him PMFSH Past Medical History Medical History Adenocarcinoma of right lung (~2020) COPD (chronic obstructive pulmonary disease) Dementia Diabetes Former smoker, stopped smoking in distant past History of CVA (cerebrovascular accident) (~07/2020) HTN (hypertension) Hyperlipidemia Pneumonia Family History Family history: reviewed and not pertinent Surgical History Surgical History History of lung biopsy (~10/2020) Social History Social History Household Members: Other [facility]hold Members [facility] Housing: Other Housing Other:: [facility] Do you presently have visiting nurse or other home services: No Alcohol intake: never Patient Tobacco Use Status: Former Tobacco user Use of substances other than those prescribed or required for medical reasons: No Currently Displaying Signs/Symptoms of Drug Intoxication Withdrawal: No Have you been hit, kicked, punched, or otherwise hurt by someone within the past year? If so, by whom?: No Do you feel safe in your current relationship?: No Current Relationship Is there a partner from a previous relationship who is making you feel unsafe now?: No Are you made to feel afraid or neglected: No Advance Directives: Yes Advance Directives on File: Yes Advance Directives Date on File: 05/24/21 Do you have thoughts of harming others: None Do you have a plan to hurt others: No Plan Recently lost weight without trying: No Nutrition Risks: No Nutritional Risk service: No Current occupational status: retired Meds Allergies Allergy/AdvReac Type Severity Reaction Status Date / Time Penicillins [PENICILLINS] Allergy Intermediate RASH Verified 07/11/22 12:27 Active Medications: Current Medications Acetaminophen (Acetaminophen 325 Mg Tablet) 650 mg PO Q6H PRN PRN Reason: Pain, Mild (Pain Scale 1-3) Last Admin: 09/16/22 08:26 Dose: 650 mg Aspirin (Aspirin 81 Mg Tab.Chew) 81 mg PO DAILY [facility] Last Admin: 09/16/22 08:24 Dose: 81 mg Atorvastatin Calcium (Atorvastatin Calcium 80 Mg Tablet) 80 mg PO BEDTIME [facility] Last Admin: 09/15/22 20:11 Dose: 80 mg Docusate Sodium (Docusate Sodium 100 Mg Capsule) 100 mg PO DAILY [facility] Last Admin: 09/16/22 08:24 Dose: 100 mg Empagliflozin (Empagliflozin 10 Mg Tablet) 10 mg PO DAILY [facility] Last Admin: 09/16/22 08:24 Dose: 10 mg Enoxaparin Sodium (Enoxaparin Sodium 30 Mg/0.3 Ml Syringe) 30 mg SUBCUT Q24H [facility] Last Admin: 09/15/22 20:11 Dose: 30 mg Glucose (Glucose Gel 15 Gm Gel..Gram.) 15 gm PO Q15M PRN; Protocol PRN Reason: per Hypoglycemia Standing Ord. Hydromorphone HCl (Hydromorphone Hcl 1 Mg/Ml Syringe) 0.5 mg IVPUSH Q4H PRN; Protocol PRN Reason: Pain, Mild (Pain Scale 1-3) Hydroxyzine HCl (Hydroxyzine Hcl 10 Mg Tablet) 10 mg PO TID [facility] Last Admin: 09/16/22 08:24 Dose: 10 mg Dextrose (D10) 250 mls @ 750 mls/hr IV Q15M PRN; Protocol PRN Reason: per Hypoglycemia Standing Ord. Levofloxacin (Levaquin) 750 mg in 150 mls @ 100 mls/hr IV Q48H [facility] Last Infusion: 09/16/22 00:29 Dose: Infused Vancomycin HCl 750 mg/ Sodium (Chloride) 265 mls @ 265 mls/hr IV Q24H [facility] Last Infusion: 09/15/22 20:12 Dose: Infused Insulin Glargine (Insulin Glargine,Hum.Rec.Anlog 100 Unit/Ml 10 Ml Vial) 10 unit SUBCUT BEDTIME [facility] Last Admin: 09/15/22 22:58 Dose: 10 unit Insulin Human Lispro (Insulin Lispro 100 Unit/Ml 3 Ml Vial) 0 unit SUBCUT QIDACHS [facility]; Protocol Last Admin: 09/16/22 12:32 Dose: Not Given Metoprolol Succinate (Metoprolol Succinate Er 50 Mg Tab.Er.24h) 50 mg PO DAILY [facility]; Protocol Last Admin: 09/16/22 08:24 Dose: 50 mg Multi-Ingred Cream/Lotion/Oil/Oint (Mineral Oil/Petrolatum,White 106 Gm Tube) 1 appl TOPICAL BID [facility]; Protocol Last Admin: 09/16/22 08:28 Dose: 1 appl Omeprazole (Omeprazole 20 Mg Capsule.Dr) 20 mg PO DAILY@06 [facility] Last Admin: 09/16/22 05:27 Dose: 20 mg Oxycodone HCl (Oxycodone Hcl Immed Release 5 Mg Tablet) 5 mg PO Q4H PRN PRN Reason: Pain, Severe (Pain Scale 7-10) Last Admin: 09/16/22 08:27 Dose: 5 mg Pharmacy Consult (Consult Rx Perform Med Rec) 1 each MISCELLANE ONCE PRN PRN Reason: Consult order Pharmacy Consult (Consult Rx Vancomycin Dosing) 1 each MISCELLANE DAILY PRN PRN Reason: Consult order Polyethylene Glycol (Polyethylene Glycol 3350 17 Gm Powd.Pack) 17 gm PO BID [facility] Sodium Chloride (0.9 % Sodium Chloride Flush 3 Ml Syringe) 3 ml IVFLUSH QSHIFT [facility] Last Admin: 09/16/22 08:28 Dose: 3 ml Vitamin D (Cholecalciferol (Vitamin D3) 25 Mcg Tablet) 25 mcg PO DAILY [facility] Last Admin: 09/16/22 08:24 Dose: 25 mcg Home Medications Medication Instructions Recorded Confirmed Last Taken Type amlodipine 10 mg tablet 10 mg PO BEDTIME 03/07/21 09/13/22 05/16/21 History atorvastatin 80 mg tablet 80 mg PO BEDTIME 03/07/21 09/13/22 05/16/21 History omeprazole 20 mg capsule,delayed 20 mg PO DAILY@0630 03/07/21 09/13/22 05/16/21 History release hydralazine 50 mg tablet 50 mg PO BID 07/07/21 09/13/22 Unknown History metoprolol succinate 50 mg 50 mg PO DAILY 07/07/21 09/13/22 Unknown History tablet,extended release 24 hr cholecalciferol (vitamin D3) 25 1 tab PO DAILY 01/17/22 09/13/22 Unknown History mcg (1,000 unit) tablet insulin glargine 100 unit/mL 15 unit subcut BEDTIME 01/17/22 09/13/22 Unknown History subcutaneous solution (Lantus U-100 Insulin) empagliflozin 10 mg tablet 10 mg PO DAILY 01/31/22 09/13/22 Unknown History (Jardiance) losartan 50 mg tablet 50 mg PO DAILY 01/31/22 09/13/22 Unknown History furosemide 40 mg tablet 40 mg BID 07/03/22 09/13/22 Unknown History aspirin 81 mg chewable tablet 81 mg PO DAILY 09/13/22 09/13/22 Unknown History hydroxyzine HCl 10 mg tablet 10 mg PO TID 09/13/22 09/13/22 Unknown History insulin lispro 100 unit/mL 1 sliding scale dose subcut 09/13/22 09/13/22 Unknown History subcutaneous cartridge USEASDIRECTD Physical Exam Vital Signs: Vital Signs: Last Vital Signs Temp 98.4 F 09/16/22 07:32 Pulse 83 09/16/22 07:32 Resp 18 09/16/22 07:32 BP 157/73 H 09/16/22 07:32 Pulse Ox 90 L 09/16/22 07:32 O2 Del Method Room Air 09/16/22 07:32 BMI result Body Mass Index 26.6 Neuro: Other: alert and awake somewhat restless and confused. Not fully understanding that part of the reason could be language. Nursing stated that he was intermittently confused. Spontaneity and fluency of speech were intact. Face was symmetrical. Visual chambers were difficult to test. There was no obvious arm or hand weakness. Right foot was partly amputated. Reflexes could not be tested. Examination was limited. Results Labs 09/16/22 10:10 09/16/22 10:10 Labs: Short CBC 09/16/22 Range/Units 10:10 WBC 14.1 H (4.8-10.8) X10*3/uL Hgb 7.9 L (14.0-18.0) g/dl Hct 26.3 L (42.0-52.0) % Plt Count 319 (160-400) X10*3/uL BMP 09/15/22 09/16/22 15:08 10:10 Sodium 143 140 Potassium 4.1 3.9 Chloride 102 101 Carbon Dioxide 32 H 30 H BUN 31 H 29 H Creatinine 1.63 H 1.70 H Calcium 10.[address] revealed moderately severe diffuse cerebral atrophy and a large left parieto-occipital chronic ischemic infarction. Microbiology Microbiology Results: Microbiology 09/13/22 16:08 Blood - Venous Blood Culture - Preliminary No growth after 48 hours. 09/13/22 15:59 Blood - Venous Blood Culture - Preliminary No growth after 48 hours. Assessment and Plan (1) Encephalopathy: Status: Acute 81 years old man with underlying moderate cerebral atrophy and a large left chronic parieto-occipital ischemic infarction likely resulting in moderate dementia of multifactorial type, presently being treated for possible infection status post left foot surgery. He recently had mild fever. His overall neuropsychiatric situation is consistent with moderately severe multifactorial dementia and encephalopathy related to infection/metabolic etiologies. Appropriate treatment is recommended Time Spent With Patient Time: Total time managing care of this patient today ____ minutes. Procedures Date of Service Date of Service: 09/16/22
--- NOTE | 2022-09-16 14:34 | MHC.CLN ---
NUTRITION CONSULT FOR POOR PO AND LOW ALBUMIN. VISITED PATIENT WITH NURSE PRESENT. PATIENT REPORTS THAT EATING OK. HAD NOT YET EATEN LUNCH AT TIME OF AFTERNOON VISIT. ADDING ENSURE BID TO PROVIDE ADDITIONAL 700 KCALS, 40 G PROTEIN. SUPPLEMENT TO IMPROVE CALORIE AND PROTEIN INTAKE.
--- NOTE | 2022-09-16 15:19 | HO.WOUNDCONS ---
History of Present Illness Data of Consult Service Date: 09/16/22 Requesting physician: Anne Palmer Primary Care Provider: Tree Saha MD [facility] Reason for consult: right dorsal foot wounds [id number]: 81-year-old male who entered the face of the T in July and reported to the emergency department on September 13 with a red foot. He was admitted for sepsis. He has COPD, stroke history, diabetes and dementia. He has high blood pressure. X-ray showed osteomyelitis of the 1st metatarsal head. His blood cultures are pending. He is getting IV antibiotics. We are asked to provide an opinion of foot wounds. He is not able to answer questions accurately. Tells me has pain when I touch his foot. Review of Systems Review of Systems: Yes Unobtainable due to mental condition [facility] Medical History Adenocarcinoma of right lung (~2020) COPD (chronic obstructive pulmonary disease) Dementia Diabetes Former smoker, stopped smoking in distant past History of CVA (cerebrovascular accident) (~07/2020) HTN (hypertension) Hyperlipidemia Pneumonia Surgical History History of lung biopsy (~10/2020) Social History Household Members: Other Household Members [facility]:: [facility] Housing: Other Housing Other:: [facility] Do you presently have visiting nurse or other home services: No Alcohol intake: never Patient Tobacco Use Status: Former Tobacco user Use of substances other than those prescribed or required for medical reasons: No Currently Displaying Signs/Symptoms of Drug Intoxication Withdrawal: No Have you been hit, kicked, punched, or otherwise hurt by someone within the past year? If so, by whom?: No Do you feel safe in your current relationship?: No Current Relationship Is there a partner from a previous relationship who is making you feel unsafe now?: No Are you made to feel afraid or neglected: No Advance Directives: Yes Advance Directives on File: Yes Advance Directives Date on File: 05/24/21 Do you have thoughts of harming others: None Do you have a plan to hurt others: No Plan Recently lost weight without trying: No Nutrition Risks: No Nutritional Risk service: No Current occupational status: retired Meds Allergies Allergy/AdvReac Type Severity Reaction Status Date / Time Penicillins [PENICILLINS] Allergy Intermediate RASH Verified 07/11/22 12:27 Active Medications: Current Medications Acetaminophen (Acetaminophen 325 Mg Tablet) 650 mg PO Q6H PRN PRN Reason: Pain, Mild (Pain Scale 1-3) Last Admin: 09/16/22 14:28 Dose: 650 mg Aspirin (Aspirin 81 Mg Tab.Chew) 81 mg PO DAILY [facility] Last Admin: 09/16/22 08:24 Dose: 81 mg Atorvastatin Calcium (Atorvastatin Calcium 80 Mg Tablet) 80 mg PO BEDTIME [facility] Last Admin: 09/15/22 20:11 Dose: 80 mg Docusate Sodium (Docusate Sodium 100 Mg Capsule) 100 mg PO DAILY [facility] Last Admin: 09/16/22 08:24 Dose: 100 mg Empagliflozin (Empagliflozin 10 Mg Tablet) 10 mg PO DAILY [facility] Last Admin: 09/16/22 08:24 Dose: 10 mg Enoxaparin Sodium (Enoxaparin Sodium 30 Mg/0.3 Ml Syringe) 30 mg SUBCUT Q24H [facility] Last Admin: 09/15/22 20:11 Dose: 30 mg Glucose (Glucose Gel 15 Gm Gel..Gram.) 15 gm PO Q15M PRN; Protocol PRN Reason: per Hypoglycemia Standing Ord. Hydromorphone HCl (Hydromorphone Hcl 1 Mg/Ml Syringe) 0.5 mg IVPUSH Q4H PRN; Protocol PRN Reason: Pain, Mild (Pain Scale 1-3) Hydroxyzine HCl (Hydroxyzine Hcl 10 Mg Tablet) 10 mg PO TID [facility] Last Admin: 09/16/22 14:30 Dose: 10 mg Dextrose (D10) 250 mls @ 750 mls/hr IV Q15M PRN; Protocol PRN Reason: per Hypoglycemia Standing Ord. Levofloxacin (Levaquin) 750 mg in 150 mls @ 100 mls/hr IV Q48H [facility] Last Infusion: 09/16/22 00:29 Dose: Infused Vancomycin HCl 750 mg/ Sodium (Chloride) 265 mls @ 265 mls/hr IV Q24H [facility] Last Infusion: 09/15/22 20:12 Dose: Infused Insulin Glargine (Insulin Glargine,Hum.Rec.Anlog 100 Unit/Ml 10 Ml Vial) 10 unit SUBCUT BEDTIME [facility] Last Admin: 09/15/22 22:58 Dose: 10 unit Insulin Human Lispro (Insulin Lispro 100 Unit/Ml 3 Ml Vial) 0 unit SUBCUT QIDACHS [facility]; Protocol Last Admin: 09/16/22 12:32 Dose: Not Given Metoprolol Succinate (Metoprolol Succinate Er 50 Mg Tab.Er.24h) 50 mg PO DAILY [facility]; Protocol Last Admin: 09/16/22 08:24 Dose: 50 mg Multi-Ingred Cream/Lotion/Oil/Oint (Mineral Oil/Petrolatum,White 106 Gm Tube) 1 appl TOPICAL BID [facility]; Protocol Last Admin: 09/16/22 08:28 Dose: 1 appl Omeprazole (Omeprazole 20 Mg Capsule.Dr) 20 mg PO DAILY@629 [facility] Last Admin: 09/16/22 05:27 Dose: 20 mg Oxycodone HCl (Oxycodone Hcl Immed Release 5 Mg Tablet) 5 mg PO Q4H PRN PRN Reason: Pain, Severe (Pain Scale 7-10) Last Admin: 09/16/22 14:29 Dose: 5 mg Pharmacy Consult (Consult Rx Perform Med Rec) 1 each MISCELLANE ONCE PRN PRN Reason: Consult order Pharmacy Consult (Consult Rx Vancomycin Dosing) 1 each MISCELLANE DAILY PRN PRN Reason: Consult order Polyethylene Glycol (Polyethylene Glycol 3350 17 Gm Powd.Pack) 17 gm PO BID [facility] Sodium Chloride (0.9 % Sodium Chloride Flush 3 Ml Syringe) 3 ml IVFLUSH QSHIFT [facility] Last Admin: 09/16/22 08:28 Dose: 3 ml Vitamin D (Cholecalciferol (Vitamin D3) 25 Mcg Tablet) 25 mcg PO DAILY [facility] Last Admin: 09/16/22 08:24 Dose: 25 mcg Home Medications Medication Instructions Recorded Confirmed Last Taken Type amlodipine 10 mg tablet 10 mg PO BEDTIME 03/07/21 09/13/22 05/16/21 History atorvastatin 80 mg tablet 80 mg PO BEDTIME 03/07/21 09/13/22 05/16/21 History omeprazole 20 mg capsule,delayed 20 mg PO DAILY@0630 03/07/21 09/13/22 05/16/21 History release hydralazine 50 mg tablet 50 mg PO BID 07/07/21 09/13/22 Unknown History metoprolol succinate 50 mg 50 mg PO DAILY 07/07/21 09/13/22 Unknown History tablet,extended release 24 hr cholecalciferol (vitamin D3) 25 1 tab PO DAILY 01/17/22 09/13/22 Unknown History mcg (1,000 unit) tablet insulin glargine 100 unit/mL 15 unit subcut BEDTIME 01/17/22 09/13/22 Unknown History subcutaneous solution (Lantus U-100 Insulin) empagliflozin 10 mg tablet 10 mg PO DAILY 01/31/22 09/13/22 Unknown History (Jardiance) losartan 50 mg tablet 50 mg PO DAILY 01/31/22 09/13/22 Unknown History furosemide 40 mg tablet 40 mg BID 07/03/22 09/13/22 Unknown History aspirin 81 mg chewable tablet 81 mg PO DAILY 09/13/22 09/13/22 Unknown History hydroxyzine HCl 10 mg tablet 10 mg PO TID 09/13/22 09/13/22 Unknown History insulin lispro 100 unit/mL 1 sliding scale dose subcut 09/13/22 09/13/22 Unknown History subcutaneous cartridge USEASDIRECTD Physical Exam Vital Signs and Narrative: Vital Signs: Last Vital Signs Temp 98.4 F 09/16/22 07:32 Pulse 83 09/16/22 07:32 Resp 18 09/16/22 07:32 BP 157/73 H 09/16/22 07:32 Pulse Ox 90 L 09/16/22 07:32 O2 Del Method Room Air 09/16/22 07:32 BMI result Body Mass Index 26.6 He is not 100% cooperative with the exam and a dorsalis pedis pulse is not palpable he was unable to hold still for this. Sutures are in place over a seemingly surgical site which is covered in black eschar. More proximally, black eschar over the dorsum foot is observed without associated erythema or edema. Flaking epithelium is also observed. Results Labs 09/16/22 10:10 09/16/22 10:10 Labs: Laboratory Results - last 24 hr 09/15/22 09/15/22 09/15/22 15:08 15:08 16:16 MCV MCH MCHC RDW Plt Count MPV Absolute Nucleated RBC Nucleated RBC % (auto) Anion Gap 13 Estim Creat Clear Calc 32.6 Estimated GFR 41 POC Glucose 199 H Random Glucose 206 H Lactic Acid Calcium 10.0 Random Vancomycin 15.6 09/15/22 09/16/22 09/16/22 22:34 00:01 07:30 MCV MCH MCHC RDW Plt Count MPV Absolute Nucleated RBC Nucleated RBC % (auto) Anion Gap Estim Creat Clear Calc Estimated GFR POC Glucose 199 H 141 H Random Glucose Lactic Acid 1.9 Calcium Random Vancomycin 09/16/22 09/16/22 09/16/22 10:10 10:10 12:00 MCV 81.9 MCH 24.6 L MCHC 30.0 L RDW 16.6 H Plt Count 319 MPV 10.6 Absolute Nucleated RBC 0.000 Nucleated RBC % (auto) 0.0 Anion Gap 13 Estim Creat Clear Calc 31.3 Estimated GFR 39 POC Glucose 248 H Random Glucose 266 H Lactic Acid Calcium 9.2 D Random Vancomycin Imaging Radiologist's Impressions: Impressions Head CT 09/16/22 10:00 IMPRESSION: No acute intracranial findings. 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 Right maxillary sinus disease. 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 We had initially seen this patient in October of 2021 but he was not compliant with visits. Now that he is in a facility, it is not clear what his wound care support is. Would recommend surgical consultation for suture removal and further assessment of debridement. For happy to see him in the clinic but cannot provide recommendations other than topical Betadine paint to keep things clean and dry. Time Spent With Patient Time: Total time managing care of this patient today ____ minutes.
[2022-09-16 16:00] VITALS: BP 115/56; PULSE 69; RESP 15; TEMP 37.6; O2SAT 91
[2022-09-16 16:44] LABS: Vancomycin Random 13.7 mcg/mL (15-20)
[2022-09-16 16:59] LABS: Glucose, Whole Blood 221 mg/dL (60-115)
--- NOTE | 2022-09-16 17:08 | HE.PHANOTE ---
RE VANCO INCREASE IN DOSE TO 1000MG Q24H. PATIENT HAS OSTEO AND TROUGH OF 13.7 CORRELATES TO AUC OF 416. NEW TROUGH DUE 09/18 @1600
[2022-09-16] MEDS: Insulin Lispro 100 UNIT/ML 3 ML VIAL SUBCUT ×2 (17:25→21:09)
[2022-09-16] MEDS: vancomycin HCL 1,000 MG in 0.9 % Sodium Chloride 250 ML 270 MG IV (17:26)
[2022-09-16 20:57] LABS: Glucose, Whole Blood 153 mg/dL (60-115)
[2022-09-16] MEDS: Enoxaparin Sodium 30 MG/0.3 ML SYRINGE SUBCUT (21:09)
[2022-09-16] MEDS: Insulin Glargine,Hum.rec.anlog 100 UNIT/ML 10 ML VIAL 10 UNIT SUBCUT (21:09)
[2022-09-16] MEDS: Atorvastatin Calcium 80 MG TABLET PO (21:10)
[2022-09-16 21:35] LABS: Creatinine Clr Calc Pharmacy 27.3; Estimated Glomerular Filt Rate 33
[2022-09-17] MEDS: HYDROmorphone HCl 1 MG/ML SYRINGE 0.5 MG IVPUSH ×2 (01:49→22:26)
[2022-09-17 03:58] VITALS: BP 169/75; PULSE 81; RESP 19; TEMP 37.3; O2SAT 92
[2022-09-17 06:34] LABS: Anion Gap 19 (12-20); Blood Urea Nitrogen 29 mg/dL (9-16); Calcium 9.5 mg/dL (8.4-10.2); Carbon Dioxide 25 mmol/L (22-29); Chloride 105 mmol/L (96-108); Creatinine Clr Calc Pharmacy 32.6; Estimated Glomerular Filt Rate 41; Glucose Random 141 mg/dL (60-115); Potassium 4.6 mmol/L (3.3-5.1); Sodium 144 mmol/L (135-145)
--- NOTE | 2022-09-17 07:13 | HE.PHANOTE ---
Vancomycin Dosing Renal function stable. Continue current regimen. next level 09/18 @ 1600. Cortney RobertsD
[2022-09-17] MEDS: Metoprolol Succinate ER 50 MG TAB.ER.24H PO (07:39)
[2022-09-17] MEDS: Acetaminophen 325 MG TABLET 650 MG PO ×2 (07:39→16:20)
[2022-09-17] MEDS: Docusate Sodium 100 MG CAPSULE PO (07:39)
[2022-09-17] MEDS: Aspirin 81 MG TAB.CHEW PO (07:39)
[2022-09-17] MEDS: 0.9 % Sodium Chloride Flush 3 ML SYRINGE IVFLUSH ×3 (07:40→23:39)
[2022-09-17] MEDS: oxyCODONE HCl Immed Release 5 MG TABLET PO ×3 (07:40→20:41)
[2022-09-17] MEDS: Cholecalciferol (Vitamin D3) 25 MCG TABLET PO (07:40)
[2022-09-17] MEDS: hydrOXYzine HCL 10 MG TABLET PO ×3 (07:40→20:42)
[2022-09-17] MEDS: Empagliflozin 10 MG TABLET PO (07:40)
[2022-09-17] MEDS: Mineral Oil/Petrolatum,White 106 GM Tube 1 APPL TOPICAL (07:41)
[2022-09-17 07:50] LABS: Glucose, Whole Blood 160 mg/dL (60-115)
[2022-09-17 08:00] VITALS: BP 150/67; PULSE 90; RESP 18; TEMP 36.8; O2SAT 91
[2022-09-17 08:08] LABS: Hematocrit 29.6 % (42.0-52.0); Hemoglobin 9.1 g/dl (14.0-18.0); Mean Corpuscular HGB Conc 30.7 g/dl (31.0-36.0); Mean Corpuscular Hemoglobin 24.9 pg (27.0-33.0); Mean Corpuscular Volume 81.1 fL (80.0-98.0); Platelet Count 359 X10*3/uL (160-400); Red Blood Count 3.65 X10*6/uL (4.60-5.80); Red Cell Distribution Width 16.7 % (11.0-16.0); White Blood Count 16.2 X10*3/uL (4.8-10.8)
[2022-09-17] MEDS: Insulin Lispro 100 UNIT/ML 3 ML VIAL SUBCUT ×2 (08:28→20:42)
[2022-09-17 11:34] LABS: Glucose, Whole Blood 135 mg/dL (60-115)
--- NOTE | 2022-09-17 11:55 | PM.PNNEP ---
Subjective Subjective Date of Service: 09/17/22 Interval history: Events noted. All recent data reviewed Physical Exam Vital Signs: Vital Signs: Last Vital Signs Temp 98.2 F 09/17/22 08:00 Pulse 90 09/17/22 08:00 Resp 18 09/17/22 08:00 BP 150/67 H 09/17/22 08:00 Pulse Ox 91 L 09/17/22 08:00 O2 Del Method Room Air 09/17/22 08:00 BMI result Body Mass Index 26.6 Const: General: no acute distress Neck: Neck: Yes supple Resp: Auscultation: diminished lung sounds Cardio: Rate: regular rate GI: Palpation (GI): Soft to palpation Skin: General skin exam: no rashes or lesions noted Neuro: General: moves all extremities Objective Data Labs 09/17/22 07:59 09/17/22 06:04 Labs: Laboratory Results - last 24 hr 09/16/22 09/16/22 09/16/22 12:00 15:59 15:59 WBC RBC Hgb Hct MCV MCH MCHC RDW Plt Count MPV Absolute Nucleated RBC Nucleated RBC % (auto) Sodium Potassium Chloride Carbon Dioxide Anion Gap BUN Creatinine 1.95 H Estim Creat Clear Calc 27.3 Estimated GFR 33 POC Glucose 248 H Random Glucose Calcium Random Vancomycin 13.7 L 09/16/22 09/16/22 09/17/22 16:52 20:52 06:04 WBC RBC Hgb Hct MCV MCH MCHC RDW Plt Count MPV Absolute Nucleated RBC Nucleated RBC % (auto) Sodium 144 Potassium 4.6 Chloride 105 Carbon Dioxide 25 Anion Gap 19 BUN 29 H Creatinine 1.63 H Estim Creat Clear Calc 32.6 Estimated GFR 41 POC Glucose 221 H 153 H Random Glucose 141 H Calcium 9.5 Random Vancomycin 09/17/22 09/17/22 09/17/22 07:43 07:59 11:22 WBC 16.2 H RBC 3.65 L Hgb 9.1 L Hct 29.6 L MCV 81.1 MCH 24.9 L MCHC 30.7 L RDW 16.7 H Plt Count 359 MPV 10.0 Absolute Nucleated RBC 0.000 Nucleated RBC % (auto) 0.0 Sodium Potassium Chloride Carbon Dioxide Anion Gap BUN Creatinine Estim Creat Clear Calc Estimated GFR POC Glucose 160 H 135 H Random Glucose Calcium Random Vancomycin Microbiology Microbiology Results: Microbiology 09/16/22 00:16 Blood - Venous Blood Culture - Preliminary No growth after 24 hours. 09/16/22 00:16 Blood - Venous Blood Culture - Preliminary No growth after 24 hours. 09/13/22 16:08 Blood - Venous Blood Culture - Preliminary No growth after 48 hours. 09/13/22 15:59 Blood - Venous Blood Culture - Preliminary No growth after 48 hours. Procedures Date of Service Date of Service: 09/17/22 Assessment & Plan Assessment and plan (1) Chronic kidney disease, stage 3b: Status: Acute Assessment and Plan: Has CKD 3 at baseline, likely due to vascular disease Had been on ARB/Diuretics which has been on hold If serum creatinine goes up, Shall hold SGLT 2 inhibitor Is at risk for contrast nephropathy and will need hydration 6 hours prior to angio Avoid hypotension/ NSAIDs; C/W rest of current supportive management Progress Note: Quality Stroke Does the patient have a stroke diagnosis?: No
--- NOTE | 2022-09-17 12:46 | P.CDIM_ITS ---
PROVIDER RESPONSE TEXT: To clarify, the appropriate diagnosis supported by the clinical indicators: Other (explain): hypoalbuminemia sec to decresed po inatke QUERY TEXT: PHYSICIAN'S DOCUMENTATION REQUEST Date of Query: 09/17/2022 09:37 AM EDT Patient Name: Jerome Ro Admit Date: 09/13/2022 Dear Fadia Russo, A review of the medical record indicates additional documentation may be needed. Please review below and update the documentation accordingly. Clinical Indicators: LABS: Albumin 2.9 due to decreased po intake Received albumin Based on the above, could you clarify the appropriate diagnosis, if significant, that supports the ab ove abnormalities and additional evaluation, monitoring, and/or treatment rendered: Hypoalbuminemia or other etiology of lab findings Labs indicate a diagnosis of (please specify) Other Other (explain) Clinically unable to determine (explain) Thank you, Yessenia Larson, CCS, CDIS Use of terms such as suspected, likely, concern for, or probable (associated with a specific diagnosi s that is being evaluated, monitored, or treated as if it exists) are acceptable and can be coded in the inpatient se tting, when documented at the time of discharge. Please use your independent medical judgment in providing your response. THIS QUERY IS PART OF THE PERMANENT MEDICAL RECORD
--- NOTE | 2022-09-17 12:46 | P.CDIM_ITS ---
PROVIDER RESPONSE TEXT: To clarify, the appropriate diagnosis supported by the clinical indicators: Other (explain): unable to determine QUERY TEXT: PHYSICIAN'S DOCUMENTATION REQUEST Date of Query: 09/17/2022 09:28 AM EDT Patient Name: Jerome Ro Admit Date: 09/13/2022 Dear Fadia Russo, Clinical indicators: Wound care consult note 09/16 - Patient reported to the emergency department on September 13 with a red f oot. He was admitted for Sepsis. IV Antibiotics WBC 16.2 Temp 98.9/100.6 HR 89 LA 1.5 Sepsis Systemic manifestations of infection, with 2 or more SIRS criteria which include: Fever > 100.4?F or hypothermia < 96.8?F Leukocytosis WBC > 12,000 or leukopenia, WBC < 4,000, or > 10% bands Tachycardia- > 90 beats/minute Tachypnea- RR > 20 breaths/minute or PaCO2 < 32mmHg Based on the above information and the recognized standard for sepsis, could you please clarify if th is diagnoses is still accurate and reflective of the patient's condition to ensure quality of the medical record. Sepsis is/was present and is a clinical diagnosis based on After study (the condition) has been ruled out Other (explain) Clinically unable to determine (explain) Thank you, Yessenia Larson, CCS, CDIS Use of terms such as suspected, likely, concern for, or probable (associated with a specific diagnosi s that is being evaluated, monitored, or treated as if it exists) are acceptable and can be coded in the inpatient se tting, when documented at the time of discharge. Please use your independent medical judgment in providing your response. THIS QUERY IS PART OF THE PERMANENT MEDICAL RECORD
--- NOTE | 2022-09-17 12:54 | HO.PM.IMPN ---
Subjective Subjective Date of Service: 09/17/22 Interval History: Toxic metabolic encephalopathy, osteomyelitis of foot. Review of Systems Still has foot cellulitis pain, denies any chest pain or shortness of breath or abdominal pain or fever chills. Physical Exam Vital Signs: Vital Signs: Last Vital Signs Temp 98.2 F 09/17/22 08:00 Pulse 90 09/17/22 08:00 Resp 18 09/17/22 08:00 BP 150/67 H 09/17/22 08:00 Pulse Ox 91 L 09/17/22 08:00 O2 Del Method Room Air 09/17/22 08:00 BMI result Body Mass Index 26.6 Appearance: Alert.? Oriented X2.? more awake. cvs: rrr, [id number] . res: clear to auscultation ,no rhonchii or wheezing abd: no rebound or guarding ,nt, bs present. ext pulses present , no cyanosis right foot -big toes area and foot seems similar to yesterday-mild erythema in foot /pain -slightly improving , no flacuatation or significant discharge. neuro: nonfocal. Objective Data Active Medications Acetaminophen (Acetaminophen 325 Mg Tablet) 650 mg PO Q6H PRN PRN Reason: Pain, Mild (Pain Scale 1-3) Last Admin: 09/17/22 07:39 Dose: 650 mg Documented By: EDGAR Aspirin (Aspirin 81 Mg Tab.Chew) 81 mg PO DAILY [facility] Last Admin: 09/17/22 07:39 Dose: 81 mg Documented By: EDGAR Atorvastatin Calcium (Atorvastatin Calcium 80 Mg Tablet) 80 mg PO BEDTIME [facility] Last Admin: 09/16/22 21:10 Dose: 80 mg Documented By: TOM Docusate Sodium (Docusate Sodium 100 Mg Capsule) 100 mg PO DAILY [facility] Last Admin: 09/17/22 07:39 Dose: 100 mg Documented By: EDGAR Empagliflozin (Empagliflozin 10 Mg Tablet) 10 mg PO DAILY [facility] Last Admin: 09/17/22 07:40 Dose: 10 mg Documented By: EDGAR Enoxaparin Sodium (Enoxaparin Sodium 30 Mg/0.3 Ml Syringe) 30 mg SUBCUT Q24H [facility] Last Admin: 09/16/22 21:09 Dose: 30 mg Documented By: TOM Glucose (Glucose Gel 15 Gm Gel..Gram.) 15 gm PO Q15M PRN; Protocol PRN Reason: per Hypoglycemia Standing Ord. Hydromorphone HCl (Hydromorphone Hcl 1 Mg/Ml Syringe) 0.5 mg IVPUSH Q4H PRN; Protocol PRN Reason: Pain, Mild (Pain Scale 1-3) Last Admin: 09/17/22 01:49 Dose: 0.5 mg Documented By: TOM Hydroxyzine HCl (Hydroxyzine Hcl 10 Mg Tablet) 10 mg PO TID [facility] Last Admin: 09/17/22 07:40 Dose: 10 mg Documented By: EDGAR Dextrose (D10) 250 mls @ 750 mls/hr IV Q15M PRN; Protocol PRN Reason: per Hypoglycemia Standing Ord. Levofloxacin (Levaquin) 750 mg in 150 mls @ 100 mls/hr IV Q48H [facility] Last Infusion: 09/16/22 00:29 Dose: 0 mls/hr Documented By: BROOKE Vancomycin HCl 1,000 mg/ (Sodium Chloride) 270 mls @ 270 mls/hr IV Q24H [facility] Last Infusion: 09/16/22 19:41 Dose: 0 mls/hr Documented By: TOM Insulin Glargine (Insulin Glargine,Hum.Rec.Anlog 100 Unit/Ml 10 Ml Vial) 10 unit SUBCUT BEDTIME [facility] Last Admin: 09/16/22 21:09 Dose: 10 unit Documented By: TOM Insulin Human Lispro (Insulin Lispro 100 Unit/Ml 3 Ml Vial) 0 unit SUBCUT QIDACHS [facility]; Protocol Last Admin: 09/17/22 11:35 Dose: Not Given Documented By: EDGAR Non-Admin Reason: No Insulin Coverage Metoprolol Succinate (Metoprolol Succinate Er 50 Mg Tab.Er.24h) 50 mg PO DAILY [facility]; Protocol Last Admin: 09/17/22 07:39 Dose: 50 mg Documented By: EDGAR Multi-Ingred Cream/Lotion/Oil/Oint (Mineral Oil/Petrolatum,White 106 Gm Tube) 1 appl TOPICAL BID [facility]; Protocol Last Admin: 09/17/22 07:41 Dose: 1 appl Documented By: EDGAR Omeprazole (Omeprazole 20 Mg Darshan.) 20 mg PO DAILY@0630 [facility] Last Admin: 09/17/22 05:56 Dose: Not Given Documented By: TOM Non-Admin Reason: Patient Refused Oxycodone HCl (Oxycodone Hcl Immed Release 5 Mg Tablet) 5 mg PO Q4H PRN PRN Reason: Pain, Severe (Pain Scale 7-10) Last Admin: 09/17/22 07:40 Dose: 5 mg Documented By: EDGAR Pharmacy Consult (Consult Rx Perform Med Rec) 1 each MISCELLANE ONCE PRN PRN Reason: Consult order Pharmacy Consult (Consult Rx Vancomycin Dosing) 1 each MISCELLANE DAILY PRN PRN Reason: Consult order Polyethylene Glycol (Polyethylene Glycol 3350 17 Gm Powd.Pack) 17 gm PO BID [facility] Last Admin: 09/17/22 07:42 Dose: Not Given Documented By: EDGAR Non-Admin Reason: Patient Refused Sodium Chloride (0.9 % Sodium Chloride Flush 3 Ml Syringe) 3 ml IVFLUSH QSHIFT [facility] Last Admin: 09/17/22 07:40 Dose: 3 ml Documented By: EDGAR Vitamin D (Cholecalciferol (Vitamin D3) 25 Mcg Tablet) 25 mcg PO DAILY [facility] Last Admin: 09/17/22 07:40 Dose: 25 mcg Documented By: EDGAR Labs 09/17/22 07:59 09/17/22 06:04 Labs: Laboratory Results - last 24 hr 09/16/22 09/16/22 09/16/22 15:59 15:59 16:52 MCV MCH MCHC RDW Plt Count MPV Absolute Nucleated RBC Nucleated RBC % (auto) Anion Gap Estim Creat Clear Calc 27.3 Estimated GFR 33 POC Glucose 221 H Random Glucose Calcium Random Vancomycin 13.7 L 09/16/22 09/17/22 09/17/22 20:52 06:04 07:43 MCV MCH MCHC RDW Plt Count MPV Absolute Nucleated RBC Nucleated RBC % (auto) Anion Gap 19 Estim Creat Clear Calc 32.6 Estimated GFR 41 POC Glucose 153 H 160 H Random Glucose 141 H Calcium 9.5 Random Vancomycin 09/17/22 09/17/22 07:59 11:22 MCV 81.1 MCH 24.9 L MCHC 30.7 L RDW 16.7 H Plt Count 359 MPV 10.0 Absolute Nucleated RBC 0.000 Nucleated RBC % (auto) 0.0 Anion Gap Estim Creat Clear Calc Estimated GFR POC Glucose 135 H Random Glucose Calcium Random Vancomycin Microbiology Microbiology Results: Microbiology 09/16/22 00:16 Blood Culture - Preliminary Blood - Venous No growth after 24 hours. 09/16/22 00:16 Blood Culture - Preliminary Blood - Venous No growth after 24 hours. Assessment and Plan (1) Encephalopathy: Status: Acute (2) Chronic kidney disease, stage 3b: Status: Acute (3) Osteomyelitis: Status: Acute Plan 81-year-old male with a PMH significant for?COPD, CVA, HTN, insulin-dependent diabetes, dementia, and HLD who presents to the ED?from a SNF with pain at the site of a recent amputation of the first digit of his right foot. Pt was treated with ceftriaxone and vanco. Pt will be admitted to the hospital for treatment of osteomyelitis with IV antibiotics. Toxic metabolic encpehalopathy: ? multifcatorial ( halodol, pain ,elizabeth on ckd) ct head -no new changes will continue supportive care ,neuro eval. sepsis sec acute osteomyelitis of 1st digit of right foot( stump area)due to dm 2. he was in the hospital in July that time had amputation of 5th toe due to osteomyelitis. At site of recent toe amputation on 07/08/2022 for osteomyelitis secondary to diabetic foot ulcer X-ray suggestive of osteomyelitis, elevated ESR and CRP. last fevers was 4/10 ( around 1 am ) wbc slowly trending up ,no fevers yesterday lactic acid normal, blood culture also sent Patient not septic,intial blood culture @48hrs ,repeat blood cultures @24hrs Infectious disease -IV ABX:? Vanco and levofloxacin day3: vanco trough 13.7 today vascular eval noted -continue iv antibiotics ,wound care, please consider follow up if not improving ELIZABETH on CKD Creatinine near baseline of around 1.7 Hold antihypertensives and diuretics for now received albumin Follow BMP Low albumin due to decreaed po intake. Patient's albumin 2.9 continue? albumin nutrionist eval HTN BP soft, hold losartan, furosemide, amlodipine, hydralazine, and metoprolol for now Monitor BP, resume home meds as warranted HFpEF: stable Not in acute exacerbation Hold furosemide due to low BP Insulin-dependent diabetes Continue Jardiance, hold home insulin SSI, Lantus HLD Continue statin Full Code DVT Prophylaxis: Lovenox inpatient need: osteomyelitis of the 1st digit of the right foot with IV antibiotics,moniter renal function and electrolytes for ELIZABETH, Vanco trough, also need infectious disease and vascular surgery evaluation. Time Spent With Patient Time: Total time managing care of this patient today ____ minutes. Quality Stroke Does the patient have a stroke diagnosis?: No VTE Prior VTE?: No VTE Risk Level:: Medical - moderate - high VTE Device Contraindication: Treatment Not Indicated VTE Drug Contraindication: N/A - Med Ordered
[2022-09-17 15:25] VITALS: BP 154/77; RESP 20; TEMP 36.8; O2SAT 92
[2022-09-17 16:16] LABS: Glucose, Whole Blood 124 mg/dL (60-115)
[2022-09-17] MEDS: vancomycin HCL 1,000 MG in 0.9 % Sodium Chloride 250 ML 270 MG IV (17:34)
[2022-09-17 19:35] VITALS: BP 155/74; PULSE 83; RESP 20; TEMP 36.8; O2SAT 95
[2022-09-17 20:31] LABS: Glucose, Whole Blood 166 mg/dL (60-115)
[2022-09-17] MEDS: Atorvastatin Calcium 80 MG TABLET PO (20:41)
[2022-09-17] MEDS: Enoxaparin Sodium 30 MG/0.3 ML SYRINGE SUBCUT (20:42)
[2022-09-17] MEDS: levoFLOXacin/D5W 750 MG/150 ML PIGGYBACK 100 MG IV (20:42)
[2022-09-17] MEDS: Insulin Glargine,Hum.rec.anlog 100 UNIT/ML 10 ML VIAL 10 UNIT SUBCUT (20:42)
[2022-09-18 03:50] VITALS: BP 153/68; PULSE 75; RESP 17; TEMP 37.3; O2SAT 93
[2022-09-18] MEDS: Omeprazole 20 MG CAPSULE.DR PO (06:27)
[2022-09-18 07:16] VITALS: BP 149/68; PULSE 83; RESP 18; TEMP 38.4; O2SAT 93
[2022-09-18 07:25] LABS: Glucose, Whole Blood 129 mg/dL (60-115)
[2022-09-18] MEDS: Aspirin 81 MG TAB.CHEW PO (08:46)
[2022-09-18] MEDS: Acetaminophen 325 MG TABLET 650 MG PO ×2 (08:46→19:09)
[2022-09-18] MEDS: Cholecalciferol (Vitamin D3) 25 MCG TABLET PO (08:47)
[2022-09-18] MEDS: polyethylene glycoL 3350 17 GM POWD.PACK PO (08:47)
[2022-09-18] MEDS: Empagliflozin 10 MG TABLET PO (08:47)
[2022-09-18] MEDS: Metoprolol Succinate ER 50 MG TAB.ER.24H PO (08:47)
[2022-09-18] MEDS: Mineral Oil/Petrolatum,White 106 GM Tube 1 APPL TOPICAL (08:47)
[2022-09-18] MEDS: Docusate Sodium 100 MG CAPSULE PO (08:47)
[2022-09-18] MEDS: oxyCODONE HCl Immed Release 5 MG TABLET PO ×3 (08:47→21:43)
[2022-09-18] MEDS: hydrOXYzine HCL 10 MG TABLET PO ×2 (08:47→21:30)
[2022-09-18] MEDS: 0.9 % Sodium Chloride Flush 3 ML SYRINGE IVFLUSH ×3 (08:48→23:55)
--- NOTE | 2022-09-18 11:06 | P.CONGS_ITS ---
History of Present Illness Consult details Consult date: 09/18/22 Reason for consult: wound care Narrative: Complex 81-year-old gentleman presents for evaluation regarding nonhealing right lower extremity foot ulcers. He had originally seen me earlier this year and in July had undergone a right great toe amputation. He has not followed up since that time. He had sutures remaining in that site. In addition he has a heel ulcer on that right foot. It has been quite painful. There has been pain and drainage from that. He now presents to us for vascular evaluation Review of Systems Review of Systems: Yes all other systems are reviewed and are negative Constitutional: Constitutional: Reports no additional constitutional complaints ENT: Reports Normal hearing present Cardiovascular: Cardiovascular: Denies chest pain, Denies chest pain at rest, Denies chest pain with activity and Denies pedal edema Respiratory: Respiratory: Denies cough Gastrointestinal: Gastrointestinal: Denies abdominal pain Musculoskeletal: Musculoskeletal: Denies abnormal gait, Denies muscle cramps and Denies radiating pain into limb Integumentary/Breasts: Skin/Breast: Denies skin ulcer and Denies wounds Neurologic: Reports Normal hearing present and Denies abnormal gait Psychiatric: Psychiatric: Reports no additional psychiatric complaints [facility] Past Medical History Medical History Adenocarcinoma of right lung (~2020) COPD (chronic obstructive pulmonary disease) Dementia Diabetes Former smoker, stopped smoking in distant past History of CVA (cerebrovascular accident) (~07/2020) HTN (hypertension) Hyperlipidemia Pneumonia Family History Family history: reviewed and not pertinent Surgical History Surgical History History of lung biopsy (~10/2020) Social History Social History Household Members: Other Household Members Other:: custodial facility Housing: Other Housing Other:: custodial facility Do you presently have visiting nurse or other home services: No Alcohol intake: never Patient Tobacco Use Status: Former Tobacco user Use of substances other than those prescribed or required for medical reasons: No Currently Displaying Signs/Symptoms of Drug Intoxication Withdrawal: No Have you been hit, kicked, punched, or otherwise hurt by someone within the past year? If so, by whom?: No Do you feel safe in your current relationship?: No Current Relationship Is there a partner from a previous relationship who is making you feel unsafe now?: No Are you made to feel afraid or neglected: No Advance Directives: Yes Advance Directives on File: Yes Advance Directives Date on File: 05/24/21 Do you have thoughts of harming others: None Do you have a plan to hurt others: No Plan Recently lost weight without trying: No Nutrition Risks: No Nutritional Risk service: No Current occupational status: retired Meds Allergies Allergy/AdvReac Type Severity Reaction Status Date / Time Penicillins [PENICILLINS] Allergy Intermediate RASH Verified 07/11/22 12:27 Active Medications: Current Medications Acetaminophen (Acetaminophen 325 Mg Tablet) 650 mg PO Q6H PRN PRN Reason: Pain, Mild (Pain Scale 1-3) Last Admin: 09/18/22 08:46 Dose: 650 mg Aspirin (Aspirin 81 Mg Tab.Chew) 81 mg PO DAILY [facility] Last Admin: 09/18/22 08:46 Dose: 81 mg Atorvastatin Calcium (Atorvastatin Calcium 80 Mg Tablet) 80 mg PO BEDTIME [facility] Last Admin: 09/17/22 20:41 Dose: 80 mg Docusate Sodium (Docusate Sodium 100 Mg Capsule) 100 mg PO DAILY [facility] Last Admin: 09/18/22 08:47 Dose: 100 mg Empagliflozin (Empagliflozin 10 Mg Tablet) 10 mg PO DAILY [facility] Last Admin: 09/18/22 08:47 Dose: 10 mg Enoxaparin Sodium (Enoxaparin Sodium 30 Mg/0.3 Ml Syringe) 30 mg SUBCUT Q24H [facility] Last Admin: 09/17/22 20:42 Dose: 30 mg Glucose (Glucose Gel 15 Gm Gel..Gram.) 15 gm PO Q15M PRN; Protocol PRN Reason: per Hypoglycemia Standing Ord. Hydromorphone HCl (Hydromorphone Hcl 1 Mg/Ml Syringe) 0.5 mg IVPUSH Q4H PRN; Protocol PRN Reason: Pain, Mild (Pain Scale 1-3) Last Admin: 09/17/22 22:26 Dose: 0.5 mg Hydroxyzine HCl (Hydroxyzine Hcl 10 Mg Tablet) 10 mg PO TID [facility] Last Admin: 09/18/22 08:47 Dose: 10 mg Dextrose (D10) 250 mls @ 750 mls/hr IV Q15M PRN; Protocol PRN Reason: per Hypoglycemia Standing Ord. Levofloxacin (Levaquin) 750 mg in 150 mls @ 100 mls/hr IV Q48H [facility] Last Infusion: 09/17/22 22:22 Dose: Infused Vancomycin HCl 1,000 mg/ (Sodium Chloride) 270 mls @ 270 mls/hr IV Q24H [facility] Last Infusion: 09/17/22 18:42 Dose: Infused Insulin Glargine (Insulin Glargine,Hum.Rec.Anlog 100 Unit/Ml 10 Ml Vial) 10 unit SUBCUT BEDTIME [facility] Last Admin: 09/17/22 20:42 Dose: 10 unit Insulin Human Lispro (Insulin Lispro 100 Unit/Ml 3 Ml Vial) 0 unit SUBCUT QIDACHS [facility]; Protocol Last Admin: 09/18/22 07:48 Dose: Not Given Metoprolol Succinate (Metoprolol Succinate Er 50 Mg Tab.Er.24h) 50 mg PO DAILY [facility]; Protocol Last Admin: 09/18/22 08:47 Dose: 50 mg Multi-Ingred Cream/Lotion/Oil/Oint (Mineral Oil/Petrolatum,White 106 Gm Tube) 1 appl TOPICAL BID [facility]; Protocol Last Admin: 09/18/22 08:47 Dose: 1 appl Omeprazole (Omeprazole 20 Mg Capsule.Dr) 20 mg PO DAILY@0630 [facility] Last Admin: 09/18/22 06:27 Dose: 20 mg Oxycodone HCl (Oxycodone Hcl Immed Release 5 Mg Tablet) 5 mg PO Q4H PRN PRN Reason: Pain, Severe (Pain Scale 7-10) Last Admin: 09/18/22 08:47 Dose: 5 mg Pharmacy Consult (Consult Rx Perform Med Rec) 1 each MISCELLANE ONCE PRN PRN Reason: Consult order Pharmacy Consult (Consult Rx Vancomycin Dosing) 1 each MISCELLANE DAILY PRN PRN Reason: Consult order Polyethylene Glycol (Polyethylene Glycol 3350 17 Gm Powd.Pack) 17 gm PO BID [facility] Last Admin: 09/18/22 08:47 Dose: 17 gm Sodium Chloride (0.9 % Sodium Chloride Flush 3 Ml Syringe) 3 ml IVFLUSH QSHIFT [facility] Last Admin: 09/18/22 08:48 Dose: 3 ml Vitamin D (Cholecalciferol (Vitamin D3) 25 Mcg Tablet) 25 mcg PO DAILY [facility] Last Admin: 09/18/22 08:47 Dose: 25 mcg Home Medications Medication Instructions Recorded Confirmed Last Taken Type amlodipine 10 mg tablet 10 mg PO BEDTIME 03/07/21 09/13/22 05/16/21 History atorvastatin 80 mg tablet 80 mg PO BEDTIME 03/07/21 09/13/22 05/16/21 History omeprazole 20 mg capsule,delayed 20 mg PO DAILY@0630 03/07/21 09/13/22 05/16/21 History release hydralazine 50 mg tablet 50 mg PO BID 07/07/21 09/13/22 Unknown History metoprolol succinate 50 mg 50 mg PO DAILY 07/07/21 09/13/22 Unknown History tablet,extended release 24 hr cholecalciferol (vitamin D3) 25 1 tab PO DAILY 01/17/22 09/13/22 Unknown History mcg (1,000 unit) tablet insulin glargine 100 unit/mL 15 unit subcut BEDTIME 01/17/22 09/13/22 Unknown History subcutaneous solution (Lantus U-100 Insulin) empagliflozin 10 mg tablet 10 mg PO DAILY 01/31/22 09/13/22 Unknown History (Jardiance) losartan 50 mg tablet 50 mg PO DAILY 01/31/22 09/13/22 Unknown History furosemide 40 mg tablet 40 mg BID 07/03/22 09/13/22 Unknown History aspirin 81 mg chewable tablet 81 mg PO DAILY 09/13/22 09/13/22 Unknown History hydroxyzine HCl 10 mg tablet 10 mg PO TID 09/13/22 09/13/22 Unknown History insulin lispro 100 unit/mL 1 sliding scale dose subcut 09/13/22 09/13/22 Unknown History subcutaneous cartridge [id number] Physical Exam Vital Signs: Vital Signs: Last Vital Signs Temp 101.2 F H 09/18/22 07:16 Pulse 83 09/18/22 07:16 Resp 18 09/18/22 07:16 BP 149/68 H 09/18/22 07:16 Pulse Ox 93 09/18/22 07:16 O2 Del Method Room Air 09/18/22 07:16 BMI result Body Mass Index 26.6 Const: General: cooperative, healthy appearing and comfortable Orientation/consciousness: oriented to person, oriented to place and oriented to time HEENT: Head: Yes normal to inspection Neck: Neck: Yes normal visual inspection Carotids: no bruits Chest: Chest palpation & inspection: normal inspection of the chest Resp: Effort & Inspection: normal respiratory effort and able to speak in complete sentences Auscultation: clear to auscultation bilaterally, no crackles, no rales, no rhonchi and no wheezes Cardio: Rate: regular rate Rhythm: regular rhythm Heart sounds: S1 normal heart sound present and S2 normal heart sound present Bruits: no carotid bruits Peripheral pulses: Peripheral pulses 2+ throughout GI: Inspection: Yes normal to inspection Skin: Other: Right great toe sutures removed dry eschar removed nonhealing penetrating down to bone. Heel has a dry eschar that also is penetrating to calcaneus. Wounds: wounds noted Hair: normal Neuro: General: oriented to person, oriented to place and oriented to time Cranial nerves: Yes CN's II-XII intact bilaterally and Yes Normal hearing present Cognition (Neuro): normal cognition Motor exam (neuro): 5/5 motor strength present throughout Extrem: Other: venous exam: No significant superficial varicosities or spider telangiectasias, minimal edema General: No clubbing, No cyanosis and No edema Psych: Appearance: grossly normal Mental Status: mental status grossly normal Speech and movement: Normal speech and movement present Results Labs 09/17/22 07:59 09/17/22 06:04 Labs: Abnormal lab results 09/17/22 09/17/22 09/17/22 Range/Units 11:22 16:10 20:27 POC Glucose 135 H 124 H 166 H (60-115) mg/dL 09/18/22 Range/Units 07:11 POC Glucose 129 H (60-115) mg/dL All other labs normal. Assessment and Plan (1) Diabetic ulcer of right foot: Status: Acute Unfortunately patient has a nonhealing right foot diabetic ulcer and amputation site. The concern is that he has 2 separate ulcers which her penetrating down to bone. There is a concern of underlying osteomyelitis. I do not think this would be a situation where he will be able to heal that. He will most likely require below-knee amputation. We did discuss these findings with the hospital ist team. Will have to have a discussion with the family and the patient regarding this. If they are agreeable will move forward with the amputation. Thank you for allowing us to assist in his care. (2) PAD (peripheral artery disease): Status: Acute Time Spent With Patient Time: Total time managing care of this patient today ____ minutes. Procedures Date of Service Date of Service: 09/18/22
--- NOTE | 2022-09-18 11:10 | MHC.CM.PN ---
[facility] CASE MANAGEMENT FOLLOWING. DELFINO [facility]
[2022-09-18 11:22] LABS: Glucose, Whole Blood 202 mg/dL (60-115)
[2022-09-18] MEDS: Insulin Lispro 100 UNIT/ML 3 ML VIAL SUBCUT ×2 (11:46→21:44)
[2022-09-18 12:25] VITALS: TEMP 37.2
--- NOTE | 2022-09-18 12:35 | HO.PM.IMPN ---
Subjective Subjective Date of Service: 09/18/22 Interval History: Continue to have pain; declining pain management Review of Systems Denies chest pain Denies shortness of breath Denies nausea vomiting diarrhea Denies fever chills Physical Exam Vital Signs: Vital Signs: Last Vital Signs Temp 98.9 F 09/18/22 12:25 Pulse 83 09/18/22 07:16 Resp 18 09/18/22 07:16 BP 149/68 H 09/18/22 07:16 Pulse Ox 93 09/18/22 07:16 O2 Del Method Room Air 09/18/22 07:16 BMI result Body Mass Index 26.6 Const: Other: No acute distress Resp: Other: Clear to auscultation bilaterally no rales rhonchi wheezes Cardio: Other: No S4; positive S1-S2; no S3 murmurs rubs or gallops GI: Other: Soft nontender nondistended normoactive bowel sounds Extrem: Other: See initial ER photos Objective Data Active Medications Acetaminophen (Acetaminophen 325 Mg Tablet) 650 mg PO Q6H PRN PRN Reason: Pain, Mild (Pain Scale 1-3) Last Admin: 09/18/22 08:46 Dose: 650 mg Documented By: SHEILA Aspirin (Aspirin 81 Mg Tab.Chew) 81 mg PO DAILY [facility] Last Admin: 09/18/22 08:46 Dose: 81 mg Documented By: SHEILA Atorvastatin Calcium (Atorvastatin Calcium 80 Mg Tablet) 80 mg PO BEDTIME [facility] Last Admin: 09/17/22 20:41 Dose: 80 mg Documented By: EDGAR Docusate Sodium (Docusate Sodium 100 Mg Capsule) 100 mg PO DAILY [facility] Last Admin: 09/18/22 08:47 Dose: 100 mg Documented By: SHEILA Empagliflozin (Empagliflozin 10 Mg Tablet) 10 mg PO DAILY [facility] Last Admin: 09/18/22 08:47 Dose: 10 mg Documented By: SHEILA Enoxaparin Sodium (Enoxaparin Sodium 30 Mg/0.3 Ml Syringe) 30 mg SUBCUT Q24H [facility] Last Admin: 09/17/22 20:42 Dose: 30 mg Documented By: EDGAR Glucose (Glucose Gel 15 Gm Gel..Gram.) 15 gm PO Q15M PRN; Protocol PRN Reason: per Hypoglycemia Standing Ord. Hydromorphone HCl (Hydromorphone Hcl 1 Mg/Ml Syringe) 0.5 mg IVPUSH Q4H PRN; Protocol PRN Reason: Pain, Mild (Pain Scale 1-3) Last Admin: 09/17/22 22:26 Dose: 0.5 mg Documented By: EDGAR Hydroxyzine HCl (Hydroxyzine Hcl 10 Mg Tablet) 10 mg PO TID [facility] Last Admin: 09/18/22 08:47 Dose: 10 mg Documented By: SHEILA Dextrose (D10) 250 mls @ 750 mls/hr IV Q15M PRN; Protocol PRN Reason: per Hypoglycemia Standing Ord. Levofloxacin (Levaquin) 750 mg in 150 mls @ 100 mls/hr IV Q48H [facility] Last Infusion: 09/17/22 22:22 Dose: 0 mls/hr Documented By: EDGAR Vancomycin HCl 1,000 mg/ (Sodium Chloride) 270 mls @ 270 mls/hr IV Q24H [facility] Last Infusion: 09/17/22 18:42 Dose: 0 mls/hr Documented By: EDGAR Insulin Glargine (Insulin Glargine,Hum.Rec.Anlog 100 Unit/Ml 10 Ml Vial) 10 unit SUBCUT BEDTIME [facility] Last Admin: 09/17/22 20:42 Dose: 10 unit Documented By: EDGAR Insulin Human Lispro (Insulin Lispro 100 Unit/Ml 3 Ml Vial) 0 unit SUBCUT QIDACHS [facility]; Protocol Last Admin: 09/18/22 11:46 Dose: 4 unit Documented By: SHEILA Metoprolol Succinate (Metoprolol Succinate Er 50 Mg Tab.Er.24h) 50 mg PO DAILY [facility]; Protocol Last Admin: 09/18/22 08:47 Dose: 50 mg Documented By: SHEILA Multi-Ingred Cream/Lotion/Oil/Oint (Mineral Oil/Petrolatum,White 106 Gm Tube) 1 appl TOPICAL BID [facility]; Protocol Last Admin: 09/18/22 08:47 Dose: 1 appl Documented By: SHEILA Omeprazole (Omeprazole 20 Mg Capsule.) 20 mg PO DAILY@0630 [facility] Last Admin: 09/18/22 06:27 Dose: 20 mg Documented By: IRON Oxycodone HCl (Oxycodone Hcl Immed Release 5 Mg Tablet) 5 mg PO Q4H PRN PRN Reason: Pain, Severe (Pain Scale 7-10) Last Admin: 09/18/22 08:47 Dose: 5 mg Documented By: SHEILA Pharmacy Consult (Consult Rx Perform Med Rec) 1 each MISCELLANE ONCE PRN PRN Reason: Consult order Pharmacy Consult (Consult Rx Vancomycin Dosing) 1 each MISCELLANE DAILY PRN PRN Reason: Consult order Polyethylene Glycol (Polyethylene Glycol 3350 17 Gm Powd.Pack) 17 gm PO BID [facility] Last Admin: 09/18/22 08:47 Dose: 17 gm Documented By: SHEILA Sodium Chloride (0.9 % Sodium Chloride Flush 3 Ml Syringe) 3 ml IVFLUSH QSHIFT [facility] Last Admin: 09/18/22 08:48 Dose: 3 ml Documented By: SHEILA Vitamin D (Cholecalciferol (Vitamin D3) 25 Mcg Tablet) 25 mcg PO DAILY [facility] Last Admin: 09/18/22 08:47 Dose: 25 mcg Documented By: SHEILA Labs 09/17/22 07:59 09/17/22 06:04 Labs: Laboratory Results - last 24 hr 09/17/22 09/17/22 09/18/22 16:10 20:27 07:11 POC Glucose 124 H 166 H 129 H 09/18/22 11:18 POC Glucose 202 H Microbiology Microbiology Results: Microbiology 09/16/22 00:16 Blood Culture - Preliminary Blood - Venous No growth after 48 hours. 09/16/22 00:16 Blood Culture - Preliminary Blood - Venous No growth after 48 hours. 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 Pt was treated with ceftriaxone and vanco. Pt will be admitted to the hospital for treatment of osteomyelitis with IV antibiotics. 1.Toxic metabolic encpehalopathy (likely multifactorial) -Aggressively treat right foot wound -follow clinically 2. Osteomyelitis right foot -Vanco/levofloxacin (4) -appreciate vascular input; will likely need right BKA -will discuss with family 3.ELIZABETH on CKD -back to baseline -follow-up renals/divalents 3.HTN -acceptable control of therapies -add back as appropriate 4.Insulin-dependent diabetes -acceptable control with basal and sliding scale -continue Jardiance -adjust as indicated Full Code Jennifer Will need ongoing hospitalization for IV antibiotics to treat osteomyelitis right foot pending BKA on right Time Spent With Patient Time: Total time managing care of this patient today ____ minutes. Quality Stroke Does the patient have a stroke diagnosis?: No VTE Prior VTE?: No VTE Risk Level:: Medical - moderate - high VTE Device Contraindication: Treatment Not Indicated VTE Drug Contraindication: N/A - Med Ordered
[2022-09-18 15:29] VITALS: BP 156/67; PULSE 66; RESP 17; TEMP 36.5; O2SAT 93
[2022-09-18 17:04] LABS: Hematocrit 29.8 % (42.0-52.0); Hemoglobin 9.5 g/dl (14.0-18.0); Mean Corpuscular HGB Conc 31.9 g/dl (31.0-36.0); Mean Corpuscular Hemoglobin 24.9 pg (27.0-33.0); Mean Corpuscular Volume 78.2 fL (80.0-98.0); PLT CLUMP 1; Red Blood Count 3.81 X10*6/uL (4.60-5.80); Red Cell Distribution Width 16.9 % (11.0-16.0)
[2022-09-18 17:14] LABS: White Blood Count 16.6 X10*3/uL (4.8-10.8)
[2022-09-18 17:15] LABS: Platelet Count 238 X10*3/uL (160-400)
[2022-09-18 17:18] LABS: Vancomycin Random 14.7 mcg/mL (15-20)
[2022-09-18] MEDS: vancomycin HCL 1,000 MG in 0.9 % Sodium Chloride 250 ML 270 MG IV (19:10)
[2022-09-18 19:32] VITALS: BP 166/74; PULSE 74; RESP 17; TEMP 36.7; O2SAT 92
[2022-09-18 20:04] LABS: Glucose, Whole Blood 78 mg/dL (60-115)
--- NOTE | 2022-09-18 21:03 | PM.PNNEP ---
Subjective Subjective Date of Service: 09/18/22 Interval history: Events noted. All recent data reviewed Physical Exam Vital Signs: Vital Signs: Last Vital Signs Temp 98.1 F 09/18/22 19:32 Pulse 74 09/18/22 19:32 Resp 17 09/18/22 19:32 BP 166/74 H 09/18/22 19:32 Pulse Ox 92 09/18/22 19:32 O2 Del Method Room Air 09/18/22 19:32 BMI result Body Mass Index 26.6 Const: General: no acute distress Eyes: EOM: EOMs intact bilaterally Neck: Neck: Yes supple Resp: Auscultation: diminished lung sounds Cardio: Rate: regular rate GI: Palpation (GI): Soft to palpation Skin: General skin exam: no rashes or lesions noted Neuro: General: moves all extremities Objective Data Labs 09/18/22 16:47 09/18/22 16:47 Labs: Laboratory Results - last 24 hr 09/18/22 09/18/22 09/18/22 07:11 11:18 16:40 WBC RBC Hgb Hct MCV MCH MCHC RDW Plt Count MPV Absolute Nucleated RBC Nucleated RBC % (auto) Sodium Potassium Chloride Carbon Dioxide Anion Gap BUN Creatinine Estim Creat Clear Calc Estimated GFR POC Glucose 129 H 202 H 78 Random Glucose Calcium Random Vancomycin 09/18/22 09/18/22 09/18/22 16:47 16:47 16:47 WBC 16.6 H RBC 3.81 L Hgb 9.5 L Hct 29.8 L MCV 78.2 L MCH 24.9 L MCHC 31.9 RDW 16.9 H Plt Count 238 D MPV 11.0 Absolute Nucleated RBC 0.000 Nucleated RBC % (auto) 0.0 Sodium Potassium Chloride Carbon Dioxide Anion Gap BUN Creatinine Cancelled Estim Creat Clear Calc Cancelled Estimated GFR Cancelled POC Glucose Random Glucose Calcium Random Vancomycin 14.7 L 09/18/22 16:47 WBC RBC Hgb Hct MCV MCH MCHC RDW Plt Count MPV Absolute Nucleated RBC Nucleated RBC % (auto) Sodium TNP Potassium TNP Chloride TNP Carbon Dioxide TNP Anion Gap TNP BUN TNP Creatinine TNP Estim Creat Clear Calc TNP Estimated GFR TNP POC Glucose Random Glucose TNP Calcium TNP Random Vancomycin Microbiology Microbiology Results: Microbiology 09/13/22 16:08 Blood - Venous Blood Culture - Final No growth after 5 days. 09/13/22 15:59 Blood - Venous Blood Culture - Final No growth after 5 days. 09/16/22 00:16 Blood - Venous Blood Culture - Preliminary No growth after 48 hours. 09/16/22 00:16 Blood - Venous Blood Culture - Preliminary No growth after 48 hours. Procedures Date of Service Date of Service: 09/18/22 Assessment & Plan Assessment and plan (1) Chronic kidney disease, stage 3b: Status: Acute Assessment and Plan: Has CKD 3 at baseline, likely due to vascular disease Had been on ARB/Diuretics which has been on hold Avoid hypotension/ NSAIDs; C/W rest of current supportive management Progress Note: Quality Stroke Does the patient have a stroke diagnosis?: No
[2022-09-18 21:04] LABS: Glucose, Whole Blood 213 mg/dL (60-115)
[2022-09-18] MEDS: Insulin Glargine,Hum.rec.anlog 100 UNIT/ML 10 ML VIAL 10 UNIT SUBCUT (21:30)
[2022-09-18] MEDS: Atorvastatin Calcium 80 MG TABLET PO (21:30)
[2022-09-19 04:00] VITALS: BP 178/78; PULSE 89; RESP 16; TEMP 37.4; O2SAT 91
[2022-09-19] MEDS: Acetaminophen 325 MG TABLET 650 MG PO ×2 (04:48→16:35)
[2022-09-19] MEDS: oxyCODONE HCl Immed Release 5 MG TABLET PO ×2 (04:49→16:35)
[2022-09-19] MEDS: Omeprazole 20 MG CAPSULE.DR PO (06:12)
[2022-09-19 06:16] VITALS: BP 143/68
[2022-09-19 07:28] VITALS: BP 152/72; PULSE 70; RESP 18; TEMP 37.3; O2SAT 90
[2022-09-19 07:46] LABS: Glucose, Whole Blood 160 mg/dL (60-115)
[2022-09-19] MEDS: polyethylene glycoL 3350 17 GM POWD.PACK PO (08:14)
[2022-09-19] MEDS: Insulin Lispro 100 UNIT/ML 3 ML VIAL SUBCUT ×3 (08:14→20:54)
[2022-09-19] MEDS: Cholecalciferol (Vitamin D3) 25 MCG TABLET PO (08:15)
[2022-09-19] MEDS: hydrOXYzine HCL 10 MG TABLET PO ×3 (08:15→20:45)
[2022-09-19] MEDS: Docusate Sodium 100 MG CAPSULE PO (08:15)
[2022-09-19] MEDS: Aspirin 81 MG TAB.CHEW PO (08:15)
[2022-09-19] MEDS: Mineral Oil/Petrolatum,White 106 GM Tube 1 APPL TOPICAL ×2 (08:15→20:55)
[2022-09-19] MEDS: 0.9 % Sodium Chloride Flush 3 ML SYRINGE IVFLUSH ×3 (08:15→20:55)
[2022-09-19] MEDS: Metoprolol Succinate ER 50 MG TAB.ER.24H PO (08:15)
[2022-09-19] MEDS: Empagliflozin 10 MG TABLET PO (08:15)
[2022-09-19 09:20] LABS: MANUAL DIFF FLAG NO
[2022-09-19 09:23] LABS: Basophils Absolute Auto 0.1 X10*3/uL (0.0-0.2); Basophils Percent Auto 0.5 % (0-2); Eosinophils Absolute Auto 0.1 X10*3/uL (0.0-0.4); Hematocrit 28.3 % (42.0-52.0); Hemoglobin 8.6 g/dl (14.0-18.0); Imm Gran Abs Auto 0.07 X10*3/uL (0.00-0.03); Imm Gran Pct Auto 0.5 % (0.0-0.4); Lymphocytes Absolute Auto 1.6 X10*3/uL (1.2-4.9); Lymphocytes Percent Auto 12.3 % (20-40); Mean Corpuscular HGB Conc 30.4 g/dl (31.0-36.0); Mean Corpuscular Hemoglobin 24.3 pg (27.0-33.0); Mean Corpuscular Volume 79.9 fL (80.0-98.0); Mean Platelet Volume 10.1 fL (9.4-12.4); Monocytes Absolute Auto 0.8 X10*3/uL (0.1-1.2); Monocytes Percent Auto 5.8 % (2-11); Neutrophils Absolute Auto 10.5 x10*3/uL (2.0-8.3); Neutrophils Percent Auto 79.9 % (45-73); Platelet Count 344 X10*3/uL (160-400); Red Blood Count 3.54 X10*6/uL (4.60-5.80); Red Cell Distribution Width 16.8 % (11.0-16.0); White Blood Count 13.2 X10*3/uL (4.8-10.8)
[2022-09-19 09:43] LABS: Alanine Aminotransferase 12 U/L (0-40); Albumin Level 3.3 g/dL (3.5-5.0); Alkaline Phosphatase 86 U/L (39-117); Anion Gap 12 (12-20); Aspartate Amino Transferase 29 U/L (5-37); Bilirubin Total 0.7 mg/dL (0.0-1.0); Blood Urea Nitrogen 23 mg/dL (9-16); Carbon Dioxide 28 mmol/L (22-29); Chloride 106 mmol/L (96-108); Creatinine Clr Calc Pharmacy 35.9; Estimated Glomerular Filt Rate 46; Glucose Fasting 219 mg/dL (60-99); Potassium 3.7 mmol/L (3.3-5.1); Sodium 142 mmol/L (135-145); Total Protein 6.7 g/dL (6.5-8.0)
--- NOTE | 2022-09-19 09:56 | P.PNNP_ITS ---
Subjective Subjective Date of Service: 09/19/22 Interval history: Events noted. All recent data reviewed Physical Exam Vital Signs: Vital Signs: Last Vital Signs Temp 99.1 F 09/19/22 07:28 Pulse 70 09/19/22 07:28 Resp 18 09/19/22 07:28 BP 152/72 H 09/19/22 07:28 Pulse Ox 90 L 09/19/22 07:28 O2 Del Method Room Air 09/19/22 07:28 BMI result Body Mass Index 26.6 Const: General: no acute distress Neck: Neck: Yes supple Resp: Auscultation: diminished lung sounds Cardio: Rate: regular rate GI: Palpation (GI): Soft to palpation Neuro: General: moves all extremities Objective Data Labs 09/19/22 09:10 09/19/22 09:10 Labs: Laboratory Results - last 24 hr 09/18/22 09/18/22 09/18/22 11:18 16:40 16:47 WBC RBC Hgb Hct MCV MCH MCHC RDW Plt Count MPV Immature Gran % (Auto) Neut % (Auto) Lymph % (Auto) [place] % (Auto) Eos % (Auto) Baso % (Auto) Lymph # (Auto) [place] # (Auto) Eos # (Auto) Baso # (Auto) Abs Immat Gran (auto) Absolute Neuts (auto) Absolute Nucleated RBC Nucleated RBC % (auto) Sodium Potassium Chloride Carbon Dioxide Anion Gap BUN Creatinine Estim Creat Clear Calc Estimated GFR POC Glucose 202 H 78 Random Glucose Fasting Glucose Calcium Total Bilirubin AST ALT Alkaline Phosphatase Total Protein Albumin Random Vancomycin 14.7 L 09/18/22 09/18/22 09/18/22 16:47 16:47 16:47 WBC 16.6 H RBC 3.81 L Hgb 9.5 L Hct 29.8 L MCV 78.2 L MCH 24.9 L MCHC 31.9 RDW 16.9 H Plt Count 238 D MPV 11.0 Immature Gran % (Auto) Neut % (Auto) Lymph % (Auto) [place] % (Auto) Eos % (Auto) Baso % (Auto) Lymph # (Auto) [place] # (Auto) Eos # (Auto) Baso # (Auto) Abs Immat Gran (auto) Absolute Neuts (auto) Absolute Nucleated RBC 0.000 Nucleated RBC % (auto) 0.0 Sodium TNP Potassium TNP Chloride TNP Carbon Dioxide TNP Anion Gap TNP BUN TNP Creatinine Cancelled TNP Estim Creat Clear Calc Cancelled TNP Estimated GFR Cancelled TNP POC Glucose Random Glucose TNP Fasting Glucose Calcium TNP Total Bilirubin AST ALT Alkaline Phosphatase Total Protein Albumin Random Vancomycin 09/18/22 09/19/22 09/19/22 21:00 07:26 09:10 WBC RBC Hgb Hct MCV MCH MCHC RDW Plt Count MPV Immature Gran % (Auto) Neut % (Auto) Lymph % (Auto) [place] % (Auto) Eos % (Auto) Baso % (Auto) Lymph # (Auto) [place] # (Auto) Eos # (Auto) Baso # (Auto) Abs Immat Gran (auto) Absolute Neuts (auto) Absolute Nucleated RBC Nucleated RBC % (auto) Sodium 142 Potassium 3.7 Chloride 106 Carbon Dioxide 28 Anion Gap 12 BUN 23 H Creatinine 1.48 H Estim Creat Clear Calc 35.9 Estimated GFR 46 POC Glucose 213 H 160 H Random Glucose Fasting Glucose 219 H Calcium 9.0 Total Bilirubin 0.7 AST 29 ALT 12 Alkaline Phosphatase 86 Total Protein 6.7 Albumin 3.3 L Random Vancomycin 09/19/22 09:10 WBC 13.2 H RBC 3.54 L Hgb 8.6 L Hct 28.3 L MCV 79.9 L MCH 24.3 L MCHC 30.4 L RDW 16.8 H Plt Count 344 D MPV 10.1 Immature Gran % (Auto) 0.5 H Neut % (Auto) 79.9 H Lymph % (Auto) 12.3 L [place] % (Auto) 5.8 Eos % (Auto) 1.0 Baso % (Auto) 0.5 Lymph # (Auto) 1.6 [place] # (Auto) 0.8 Eos # (Auto) 0.1 Baso # (Auto) 0.1 Abs Immat Gran (auto) 0.07 H Absolute Neuts (auto) 10.5 H Absolute Nucleated RBC 0.000 Nucleated RBC % (auto) 0.0 Sodium Potassium Chloride Carbon Dioxide Anion Gap BUN Creatinine Estim Creat Clear Calc Estimated GFR POC Glucose Random Glucose Fasting Glucose Calcium Total Bilirubin AST ALT Alkaline Phosphatase Total Protein Albumin Random Vancomycin Microbiology Microbiology Results: Microbiology 09/13/22 16:08 Blood - Venous Blood Culture - Final No growth after 5 days. 09/13/22 15:59 Blood - Venous Blood Culture - Final No growth after 5 days. 09/16/22 00:16 Blood - Venous Blood Culture - Preliminary No growth after 48 hours. 09/16/22 00:16 Blood - Venous Blood Culture - Preliminary No growth after 48 hours. Procedures Date of Service Date of Service: 09/19/22 Assessment & Plan Assessment and plan (1) Chronic kidney disease, stage 3b: Status: Acute Assessment and Plan: Has CKD 3 at baseline, likely due to vascular disease Had been on ARB/Diuretics which has been on hold Renal function back to baseline now Avoid hypotension/ NSAIDs C/W rest of current supportive management Progress Note: Quality Stroke Does the patient have a stroke diagnosis?: No
[2022-09-19 11:44] LABS: Glucose, Whole Blood 282 mg/dL (60-115)
--- NOTE | 2022-09-19 12:50 | P.PNIM_ITS ---
Subjective Subjective Date of Service: 09/19/22 Interval History: No acute issues overnight. Using pain meds sporadically Review of Systems Denies chest pain Denies shortness of breath Denies nausea vomiting diarrhea Denies fever chills Physical Exam Vital Signs: Vital Signs: Last Vital Signs Temp 99.1 F 09/19/22 07:28 Pulse 70 09/19/22 07:28 Resp 18 09/19/22 07:28 BP 152/72 H 09/19/22 07:28 Pulse Ox 90 L 09/19/22 07:28 O2 Del Method Room Air 09/19/22 07:28 BMI result Body Mass Index 26.6 Const: Other: No acute distress Resp: Other: Clear to auscultation bilaterally no rales rhonchi wheezes Cardio: Other: No S4; positive S1-S2; no S3 murmurs rubs or gallops GI: Other: Soft nontender nondistended normoactive bowel sounds Extrem: Other: See initial ER photos Objective Data Active Medications Acetaminophen (Acetaminophen 325 Mg Tablet) 650 mg PO Q6H PRN PRN Reason: Pain, Mild (Pain Scale 1-3) Last Admin: 09/19/22 04:48 Dose: 650 mg Documented By: DEE DEE Aspirin (Aspirin 81 Mg Tab.Chew) 81 mg PO DAILY [facility] Last Admin: 09/19/22 08:15 Dose: 81 mg Documented By: CARLENE Atorvastatin Calcium (Atorvastatin Calcium 80 Mg Tablet) 80 mg PO BEDTIME [facility] Last Admin: 09/18/22 21:30 Dose: 80 mg Documented By: DEE DEE Docusate Sodium (Docusate Sodium 100 Mg Capsule) 100 mg PO DAILY [facility] Last Admin: 09/19/22 08:15 Dose: 100 mg Documented By: CARLENE Empagliflozin (Empagliflozin 10 Mg Tablet) 10 mg PO DAILY [facility] Last Admin: 09/19/22 08:15 Dose: 10 mg Documented By: CARLENE Enoxaparin Sodium (Enoxaparin Sodium 30 Mg/0.3 Ml Syringe) 30 mg SUBCUT Q24H [facility] Last Admin: 09/18/22 22:45 Dose: Not Given Documented By: DEE DEE Non-Admin Reason: Patient Refused Glucose (Glucose Gel 15 Gm Gel..Gram.) 15 gm PO Q15M PRN; Protocol PRN Reason: per Hypoglycemia Standing Ord. Hydromorphone HCl (Hydromorphone Hcl 1 Mg/Ml Syringe) 0.5 mg IVPUSH Q4H PRN; Protocol PRN Reason: Pain, Mild (Pain Scale 1-3) Last Admin: 09/17/22 22:26 Dose: 0.5 mg Documented By: EDGAR Hydroxyzine HCl (Hydroxyzine Hcl 10 Mg Tablet) 10 mg PO TID [facility] Last Admin: 09/19/22 08:15 Dose: 10 mg Documented By: CARLENE Dextrose (D10) 250 mls @ 750 mls/hr IV Q15M PRN; Protocol PRN Reason: per Hypoglycemia Standing Ord. Levofloxacin (Levaquin) 750 mg in 150 mls @ 100 mls/hr IV Q48H [facility] Last Infusion: 09/17/22 22:22 Dose: 0 mls/hr Documented By: EDGAR Vancomycin HCl 1,000 mg/ (Sodium Chloride) 270 mls @ 270 mls/hr IV Q24H [facility] Last Infusion: 09/18/22 21:33 Dose: 270 mls/hr Documented By: DEE DEE Insulin Glargine (Insulin Glargine,Hum.Rec.Anlog 100 Unit/Ml 10 Ml Vial) 10 unit SUBCUT BEDTIME [facility] Last Admin: 09/18/22 21:30 Dose: 10 unit Documented By: DEE DEE Insulin Human Lispro (Insulin Lispro 100 Unit/Ml 3 Ml Vial) 0 unit SUBCUT QIDACHS [facility]; Protocol Last Admin: 09/19/22 12:00 Dose: 6 unit Documented By: CARLENE Metoprolol Succinate (Metoprolol Succinate Er 50 Mg Tab.Er.24h) 50 mg PO DAILY [facility]; Protocol Last Admin: 09/19/22 08:15 Dose: 50 mg Documented By: CARLENE Multi-Ingred Cream/Lotion/Oil/Oint (Mineral Oil/Petrolatum,White 106 Gm Tube) 1 appl TOPICAL BID [facility]; Protocol Last Admin: 09/19/22 08:15 Dose: 1 appl Documented By: CARLENE Omeprazole (Omeprazole 20 Mg Capsule.) 20 mg PO DAILY@0630 [facility] Last Admin: 09/19/22 06:12 Dose: 20 mg Documented By: DEE DEE Oxycodone HCl (Oxycodone Hcl Immed Release 5 Mg Tablet) 5 mg PO Q4H PRN PRN Reason: Pain, Severe (Pain Scale 7-10) Last Admin: 09/19/22 04:49 Dose: 5 mg Documented By: DEE DEE Pharmacy Consult (Consult Rx Perform Med Rec) 1 each MISCELLANE ONCE PRN PRN Reason: Consult order Pharmacy Consult (Consult Rx Vancomycin Dosing) 1 each MISCELLANE DAILY PRN PRN Reason: Consult order Polyethylene Glycol (Polyethylene Glycol 3350 17 Gm Powd.Pack) 17 gm PO BID [facility] Last Admin: 09/19/22 08:14 Dose: 17 gm Documented By: CARLENE Sodium Chloride (0.9 % Sodium Chloride Flush 3 Ml Syringe) 3 ml IVFLUSH QSHIFT [facility] Last Admin: 09/19/22 08:15 Dose: 3 ml Documented By: CARLENE Vitamin D (Cholecalciferol (Vitamin D3) 25 Mcg Tablet) 25 mcg PO DAILY [facility] Last Admin: 09/19/22 08:15 Dose: 25 mcg Documented By: CARLENE Labs 09/19/22 09:10 09/19/22 09:10 Labs: Laboratory Results - last 24 hr 09/18/22 09/18/22 09/18/22 16:40 16:47 16:47 MCV MCH MCHC RDW Plt Count MPV Immature Gran % (Auto) Neut % (Auto) Lymph % (Auto) [place] % (Auto) Eos % (Auto) Baso % (Auto) Lymph # (Auto) [place] # (Auto) Eos # (Auto) Baso # (Auto) Abs Immat Gran (auto) Absolute Neuts (auto) Absolute Nucleated RBC Nucleated RBC % (auto) Anion Gap Estim Creat Clear Calc Cancelled Estimated GFR Cancelled POC Glucose 78 Random Glucose Fasting Glucose Calcium Total Bilirubin AST ALT Alkaline Phosphatase Total Protein Albumin Random Vancomycin 14.7 L 09/18/22 09/18/22 09/18/22 16:47 16:47 21:00 MCV 78.2 L MCH 24.9 L MCHC 31.9 RDW 16.9 H Plt Count 238 D MPV 11.0 Immature Gran % (Auto) Neut % (Auto) Lymph % (Auto) [place] % (Auto) Eos % (Auto) Baso % (Auto) Lymph # (Auto) [place] # (Auto) Eos # (Auto) Baso # (Auto) Abs Immat Gran (auto) Absolute Neuts (auto) Absolute Nucleated RBC 0.000 Nucleated RBC % (auto) 0.0 Anion Gap TNP Estim Creat Clear Calc TNP Estimated GFR TNP POC Glucose 213 H Random Glucose TNP Fasting Glucose Calcium TNP Total Bilirubin AST ALT Alkaline Phosphatase Total Protein Albumin Random Vancomycin 09/19/22 09/19/22 09/19/22 07:26 09:10 09:10 MCV 79.9 L MCH 24.3 L MCHC 30.4 L RDW 16.8 H Plt Count 344 D MPV 10.1 Immature Gran % (Auto) 0.5 H Neut % (Auto) 79.9 H Lymph % (Auto) 12.3 L [place] % (Auto) 5.8 Eos % (Auto) 1.0 Baso % (Auto) 0.5 Lymph # (Auto) 1.6 [place] # (Auto) 0.8 Eos # (Auto) 0.1 Baso # (Auto) 0.1 Abs Immat Gran (auto) 0.07 H Absolute Neuts (auto) 10.5 H Absolute Nucleated RBC 0.000 Nucleated RBC % (auto) 0.0 Anion Gap 12 Estim Creat Clear Calc 35.9 Estimated GFR 46 POC Glucose 160 H Random Glucose Fasting Glucose 219 H Calcium 9.0 Total Bilirubin 0.7 AST 29 ALT 12 Alkaline Phosphatase 86 Total Protein 6.7 Albumin 3.3 L Random Vancomycin 09/19/22 11:17 MCV MCH MCHC RDW Plt Count MPV Immature Gran % (Auto) Neut % (Auto) Lymph % (Auto) [place] % (Auto) Eos % (Auto) Baso % (Auto) Lymph # (Auto) [place] # (Auto) Eos # (Auto) Baso # (Auto) Abs Immat Gran (auto) Absolute Neuts (auto) Absolute Nucleated RBC Nucleated RBC % (auto) Anion Gap Estim Creat Clear Calc Estimated GFR POC Glucose 282 H Random Glucose Fasting Glucose Calcium Total Bilirubin AST ALT Alkaline Phosphatase Total Protein Albumin Random Vancomycin Microbiology Microbiology Results: Microbiology 09/13/22 16:08 Blood Culture - Final Blood - Venous No growth after 5 days. 09/13/22 15:59 Blood Culture - Final Blood - Venous No growth after 5 days. 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 Pt was treated with ceftriaxone and vanco. Pt will be admitted to the hospital for treatment of osteomyelitis with IV antibiotics. 1.Toxic metabolic encpehalopathy (likely multifactorial) -Aggressively treat right foot wound... Will likely need amputation -follow clinically 2. Osteomyelitis right foot -Vanco/levofloxacin (5) -appreciate vascular input; will likely need right BKA... Timing as per vascular surgery -will discuss with family 3.ELIZABETH on CKD -back to baseline -follow-up renals/divalents 3.HTN -acceptable control of therapies -add back as appropriate 4.Insulin-dependent diabetes -acceptable control with basal and sliding scale -continue Jardiance -adjust as indicated Full Code Jennifer Will need ongoing hospitalization for IV antibiotics to treat osteomyelitis right foot pending BKA on right Time Spent With Patient Time: Total time managing care of this patient today ____ minutes. Quality Stroke Does the patient have a stroke diagnosis?: No VTE Prior VTE?: No VTE Risk Level:: Medical - moderate - high VTE Device Contraindication: Treatment Not Indicated VTE Drug Contraindication: N/A - Med Ordered
--- NOTE | 2022-09-19 14:53 | P.PNVS_ITS ---
Subjective Subjective Date of Service: 09/19/22 Patient reports: no new complaints Interval history: 81-year-old gentleman presents for follow-up evaluation regarding nonhealing right lower extremity ulcers. Of note he has had a prior right great toe amputation he has a heel ulcer which continues to be a source of problems for him. He now presents for vascular follow-up. Of note his dementia has progressed. Physical Exam Vital Signs: Vital Signs: Last Vital Signs Temp 99.1 F 09/19/22 07:28 Pulse 70 09/19/22 07:28 Resp 18 09/19/22 07:28 BP 152/72 H 09/19/22 07:28 Pulse Ox 90 L 09/19/22 07:28 O2 Del Method Room Air 09/19/22 07:28 BMI result Body Mass Index 26.6 Const: General: cooperative, healthy appearing and no acute distress Orientation/consciousness: oriented to person, oriented to place and oriented to time HEENT: Head: Yes normal to inspection Neck: Carotids: no bruits Chest: Chest palpation & inspection: normal inspection of the chest Resp: Effort & Inspection: normal respiratory effort and able to speak in complete sentences Auscultation: clear to auscultation bilaterally Cardio: Rate: regular rate Heart sounds: S1 normal heart sound present and S2 normal heart sound present GI: Inspection: Yes normal to inspection Skin: Other: Right great toe amputation site penetrating to bone. Dry eschar on heel which is nonhealing. General skin exam: no rashes or lesions noted Wounds: no wounds Neuro: General: oriented to person, oriented to place, oriented to time and CN's II-XI intact bilaterally Extrem: General: Yes normal to inspection, Yes full ROM and Yes no clubbing, cyanosis or edema Psych: Appearance: grossly normal and well kempt Speech and movement: Normal speech and movement present Affect: normal affect Progress Note: A&P Assessment and plan (1) Diabetic ulcer of right foot: Status: Acute Assessment and Plan: In short patient has nonhealing right foot diabetic ulcers. He has had multiple attempts at conservative management including toe amputation IV antibiotic t herapy and has had recurrent bouts of cellulitis. It has been nonhealing. In light of his overall condition and situation along with his dementia I do believe a an amputation would be the best for him. Would not try any other aggressive intervention at the current time. He will require a right below-knee amputation. This was discussed with his daughter Ashely at telephone [phone]. She is in agreement and would like to move forward. We will schedule for tomorrow. Thank you for allowing us to assist in his care. If there are any questions or concerns please do not hesitate to contact us Time Spent With Patient Time: Total time managing care of this patient today ____ minutes. Procedures Date of Service Date of Service: 09/19/22 Quality Stroke Does the patient have a stroke diagnosis?: No VTE Prior VTE?: No VTE Risk Level:: Medical - moderate - high VTE Device Contraindication: Treatment Not Indicated VTE Drug Contraindication: N/A - Med Ordered
[2022-09-19 15:37] VITALS: BP 177/81; PULSE 78; RESP 18; TEMP 36.7; O2SAT 93
[2022-09-19 16:31] LABS: Glucose, Whole Blood 105 mg/dL (60-115)
[2022-09-19] MEDS: vancomycin HCL 1,000 MG in 0.9 % Sodium Chloride 250 ML 270 MG IV (17:27)
[2022-09-19 19:50] VITALS: BP 149/70; PULSE 63; RESP 14; TEMP 36.3; O2SAT 93
[2022-09-19 20:09] LABS: Glucose, Whole Blood 173 mg/dL (60-115)
[2022-09-19] MEDS: Atorvastatin Calcium 80 MG TABLET PO (20:45)
[2022-09-19] MEDS: Insulin Glargine,Hum.rec.anlog 100 UNIT/ML 10 ML VIAL 10 UNIT SUBCUT (20:53)
[2022-09-19] MEDS: levoFLOXacin/D5W 750 MG/150 ML PIGGYBACK 100 MG IV (20:53)
[2022-09-19] MEDS: Enoxaparin Sodium 30 MG/0.3 ML SYRINGE SUBCUT (20:54)
[2022-09-20] VITALS (9 sets, daily range): BP systolic 137–190; BP diastolic 22–88; PULSE 59–81; RESP 16–20; TEMP 36.1–37.1; O2SAT 90–96
[2022-09-20] MEDS: oxyCODONE HCl Immed Release 5 MG TABLET PO ×2 (00:33→07:42)
[2022-09-20] MEDS: Acetaminophen 325 MG TABLET 650 MG PO (00:34)
[2022-09-20] MEDS: HYDROmorphone HCl 1 MG/ML SYRINGE 0.5 MG IVPUSH ×2 (06:31→10:37)
[2022-09-20 06:52] LABS: MANUAL DIFF FLAG NO
[2022-09-20 06:58] LABS: Basophils Absolute Auto 0.1 X10*3/uL (0.0-0.2); Basophils Percent Auto 0.4 % (0-2); Eosinophils Absolute Auto 0.4 X10*3/uL (0.0-0.4); Eosinophils Percent Auto 3.6 % (0-4); Hematocrit 26.3 % (42.0-52.0); Imm Gran Abs Auto 0.06 X10*3/uL (0.00-0.03); Imm Gran Pct Auto 0.5 % (0.0-0.4); Lymphocytes Absolute Auto 2.3 X10*3/uL (1.2-4.9); Lymphocytes Percent Auto 18.6 % (20-40); Mean Corpuscular HGB Conc 30.4 g/dl (31.0-36.0); Mean Corpuscular Hemoglobin 24.5 pg (27.0-33.0); Mean Corpuscular Volume 80.4 fL (80.0-98.0); Monocytes Absolute Auto 0.8 X10*3/uL (0.1-1.2); Monocytes Percent Auto 6.7 % (2-11); Neutrophils Absolute Auto 8.5 x10*3/uL (2.0-8.3); Neutrophils Percent Auto 70.2 % (45-73); Platelet Count 357 X10*3/uL (160-400); Red Blood Count 3.27 X10*6/uL (4.60-5.80); Red Cell Distribution Width 17.1 % (11.0-16.0); White Blood Count 12.2 X10*3/uL (4.8-10.8)
[2022-09-20 07:00] LABS: Hematocrit 25.7 % (42.0-52.0); Hemoglobin 7.8 g/dl (14.0-18.0); Mean Corpuscular HGB Conc 30.4 g/dl (31.0-36.0); Mean Corpuscular Hemoglobin 24.5 pg (27.0-33.0); Mean Corpuscular Volume 80.6 fL (80.0-98.0); Mean Platelet Volume 10.4 fL (9.4-12.4); Platelet Count 356 X10*3/uL (160-400); Red Blood Count 3.19 X10*6/uL (4.60-5.80); Red Cell Distribution Width 16.9 % (11.0-16.0); White Blood Count 11.9 X10*3/uL (4.8-10.8)
[2022-09-20 07:17] LABS: Alanine Aminotransferase 12 U/L (0-40); Albumin Level 3.1 g/dL (3.5-5.0); Alkaline Phosphatase 76 U/L (39-117); Anion Gap 12 (12-20); Aspartate Amino Transferase 28 U/L (5-37); Bilirubin Total 0.6 mg/dL (0.0-1.0); Blood Urea Nitrogen 22 mg/dL (9-16); Calcium 8.6 mg/dL (8.4-10.2); Carbon Dioxide 29 mmol/L (22-29); Chloride 107 mmol/L (96-108); Creatinine Clr Calc Pharmacy 35.7; Estimated Glomerular Filt Rate 45; Glucose Fasting 104 mg/dL (60-99); Potassium 3.9 mmol/L (3.3-5.1); Sodium 144 mmol/L (135-145); Total Protein 6.3 g/dL (6.5-8.0)
[2022-09-20 07:49] LABS: Glucose, Whole Blood 115 mg/dL (60-115)
--- NOTE | 2022-09-20 08:07 | P.CDIM_ITS ---
PROVIDER RESPONSE TEXT: To clarify, the appropriate diagnosis supported by the clinical indicators: Clinically unable to determine (explain): Multifactorial QUERY TEXT: PHYSICIAN'S DOCUMENTATION REQUEST Date of Query: 09/19/2022 08:37 AM EDT Patient Name: Jerome Ro Admit Date: 09/13/2022 Dear Feliberto Bills, A review of the medical record indicates additional documentation may be needed. Please review below and update the documentation accordingly. Clinical Indicators: Dementia: not allowing nurses to place IV line, not cooperating, not following commands, restless. Haldol Wound care noted patient not cooperating with exam. If possible, please further clarify type of Dementia: Dementia, Vascular, Frontal, Presenile, Senile etc. with behavioral disturbances/without behavioral disturbances Other or unknown Other (explain) Clinically unable to determine (explain) Thank you, Yessenia Larson, CCS, CDIS Use of terms such as suspected, likely, concern for, or probable (associated with a specific diagnosi s that is being evaluated, monitored, or treated as if it exists) are acceptable and can be coded in the inpatient se tting, when documented at the time of discharge. Please use your independent medical judgment in providing your response. THIS QUERY IS PART OF THE PERMANENT MEDICAL RECORD
--- NOTE | 2022-09-20 09:19 | PC.NURSE ---
pre op report given to short stay surgery AMELIA Cotton
[2022-09-20] MEDS: Docusate Sodium 100 MG CAPSULE PO (10:38)
[2022-09-20] MEDS: Cholecalciferol (Vitamin D3) 25 MCG TABLET PO (10:38)
[2022-09-20] MEDS: 0.9 % Sodium Chloride Flush 3 ML SYRINGE IVFLUSH ×2 (10:38→23:44)
[2022-09-20] MEDS: Metoprolol Succinate ER 50 MG TAB.ER.24H PO (10:39)
[2022-09-20] MEDS: Empagliflozin 10 MG TABLET PO (10:39)
[2022-09-20] MEDS: hydrOXYzine HCL 10 MG TABLET PO ×2 (10:39→20:31)
[2022-09-20] MEDS: Aspirin 81 MG TAB.CHEW PO (10:44)
[2022-09-20 11:34] LABS: Glucose, Whole Blood 118 mg/dL (60-115)
--- NOTE | 2022-09-20 11:43 | MHC.CM.PN ---
Per MD rounds no discharge today. Patient is scheduled for a BKA today. DP return to [facility] via BLS.
[2022-09-20 13:24] LABS: Glucose, Whole Blood 107 mg/dL (60-115)
--- NOTE | 2022-09-20 13:47 | PC.NURSE ---
called healthcare proxy daughter jake for consent with dr rivera and limb disposal also okay by daughter
--- NOTE | 2022-09-20 15:03 | HO.PM.IMPN ---
Subjective Subjective Date of Service: 09/20/22 Interval History: No acute issues overnight. Remains NPO for below the knee amputation (right) Review of Systems Denies chest pain Denies shortness of breath Denies nausea vomiting diarrhea Denies fever chills Physical Exam Vital Signs: Vital Signs: Last Vital Signs Temp 98 F 09/20/22 13:25 Pulse 73 09/20/22 13:25 Resp 20 09/20/22 13:25 BP 156/70 H 09/20/22 13:25 Pulse Ox 96 09/20/22 13:25 O2 Del Method Nasal Cannula 09/20/22 13:25 O2 Flow Rate 2 09/20/22 13:25 BMI result Body Mass Index 26.6 Const: Other: No acute distress Resp: Other: Clear to auscultation bilaterally no rales rhonchi wheezes Cardio: Other: No S4; positive S1-S2; no S3 murmurs rubs or gallops GI: Other: Soft nontender nondistended normoactive bowel sounds Extrem: Other: See initial ER photos Objective Data Active Medications Acetaminophen (Acetaminophen 325 Mg Tablet) 650 mg PO Q6H PRN PRN Reason: Pain, Mild (Pain Scale 1-3) Last Admin: 09/20/22 00:34 Dose: 650 mg Documented By: JOANNE Aspirin (Aspirin 81 Mg Tab.Chew) 81 mg PO DAILY [facility] Last Admin: 09/20/22 10:44 Dose: 81 mg Documented By: JULIETTE Atorvastatin Calcium (Atorvastatin Calcium 80 Mg Tablet) 80 mg PO BEDTIME [facility] Last Admin: 09/19/22 20:45 Dose: 80 mg Documented By: JOANNE Docusate Sodium (Docusate Sodium 100 Mg Capsule) 100 mg PO DAILY [facility] Last Admin: 09/20/22 10:38 Dose: 100 mg Documented By: JULIETTE Empagliflozin (Empagliflozin 10 Mg Tablet) 10 mg PO DAILY [facility] Last Admin: 09/20/22 10:39 Dose: 10 mg Documented By: JULIETTE Enoxaparin Sodium (Enoxaparin Sodium 30 Mg/0.3 Ml Syringe) 30 mg SUBCUT Q24H [facility] Last Admin: 09/19/22 20:54 Dose: 30 mg Documented By: JOANNE Fentanyl (Fentanyl Citrate/Pf 100 Mcg/2 Ml Vial) 25 mcg IVPUSH Q5M PRN; Protocol PRN Reason: Pain, Moderate (Pain Scale 4-6 Glucose (Glucose Gel 15 Gm Gel..Gram.) 15 gm PO Q15M PRN; Protocol PRN Reason: per Hypoglycemia Standing Ord. Hydromorphone HCl (Hydromorphone Hcl 1 Mg/Ml Syringe) 0.5 mg IVPUSH Q4H PRN; Protocol PRN Reason: Pain, Mild (Pain Scale 1-3) Last Admin: 09/20/22 10:37 Dose: 0.5 mg Documented By: JULIETTE Hydroxyzine HCl (Hydroxyzine Hcl 10 Mg Tablet) 10 mg PO TID [facility] Last Admin: 09/20/22 14:25 Dose: Not Given Documented By: NICKI Non-Admin Reason: Off Unit: Surgery Dextrose (D10) 250 mls @ 750 mls/hr IV Q15M PRN; Protocol PRN Reason: per Hypoglycemia Standing Ord. Levofloxacin (Levaquin) 750 mg in 150 mls @ 100 mls/hr IV Q48H [facility] Last Infusion: 09/19/22 22:27 Dose: 0 mls/hr Documented By: JOANNE Vancomycin HCl 1,000 mg/ (Sodium Chloride) 270 mls @ 270 mls/hr IV Q24H [facility] Last Infusion: 09/19/22 18:52 Dose: 0 mls/hr Documented By: CARLENE Insulin Glargine (Insulin Glargine,Hum.Rec.Anlog 100 Unit/Ml 10 Ml Vial) 10 unit SUBCUT BEDTIME [facility] Last Admin: 09/19/22 20:53 Dose: 10 unit Documented By: JOANNE Insulin Human Lispro (Insulin Lispro 100 Unit/Ml 3 Ml Vial) 0 unit SUBCUT QIDACHS [facility]; Protocol Last Admin: 09/20/22 11:22 Dose: Not Given Documented By: CARLENE Non-Admin Reason: No Insulin Coverage Metoprolol Succinate (Metoprolol Succinate Er 50 Mg Tab.Er.24h) 50 mg PO DAILY [facility]; Protocol Last Admin: 09/20/22 10:39 Dose: 50 mg Documented By: JULIETTE Multi-Ingred Cream/Lotion/Oil/Oint (Mineral Oil/Petrolatum,White 106 Gm Tube) 1 appl TOPICAL BID [facility]; Protocol Last Admin: 09/20/22 10:40 Dose: Not Given Documented By: JULIETTE Non-Admin Reason: Patient Refused Omeprazole (Omeprazole 20 Mg Darshan.) 20 mg PO DAILY@0630 [facility] Last Admin: 09/20/22 06:19 Dose: Not Given Documented By: JOANNE Non-Admin Reason: Pre- op/ NPO Oxycodone HCl (Oxycodone Hcl Immed Release 5 Mg Tablet) 5 mg PO Q4H PRN PRN Reason: Pain, Severe (Pain Scale 7-10) Last Admin: 09/20/22 07:42 Dose: 5 mg Documented By: JULIETTE Pharmacy Consult (Consult Rx Perform Med Rec) 1 each MISCELLANE ONCE PRN PRN Reason: Consult order Pharmacy Consult (Consult Rx Vancomycin Dosing) 1 each MISCELLANE DAILY PRN PRN Reason: Consult order Polyethylene Glycol (Polyethylene Glycol 3350 17 Gm Powd.Pack) 17 gm PO BID [facility] Last Admin: 09/20/22 10:40 Dose: Not Given Documented By: JULIETTE Non-Admin Reason: NPO Sodium Chloride (0.9 % Sodium Chloride Flush 3 Ml Syringe) 3 ml IVFLUSH QSHIFT [facility] Last Admin: 09/20/22 10:38 Dose: 3 ml Documented By: JULIETTE Vitamin D (Cholecalciferol (Vitamin D3) 25 Mcg Tablet) 25 mcg PO DAILY [facility] Last Admin: 09/20/22 10:38 Dose: 25 mcg Documented By: JULIETTE Labs 09/20/22 06:21 09/20/22 06:21 Labs: Laboratory Results - last 24 hr 09/19/22 09/19/22 09/19/22 15:43 16:25 19:54 MCV MCH MCHC RDW Plt Count MPV Immature Gran % (Auto) Neut % (Auto) Lymph % (Auto) [place] % (Auto) Eos % (Auto) Baso % (Auto) Lymph # (Auto) [place] # (Auto) Eos # (Auto) Baso # (Auto) Abs Immat Gran (auto) Absolute Neuts (auto) Absolute Nucleated RBC Nucleated RBC % (auto) Anion Gap Estim Creat Clear Calc Estimated GFR POC Glucose 105 173 H Fasting Glucose Calcium Total Bilirubin AST ALT Alkaline Phosphatase Total Protein Albumin Blood Type A Positive Antibody Screen NEGATIVE 09/20/22 09/20/22 09/20/22 06:21 06:21 06:21 MCV 80.4 80.6 MCH 24.5 L 24.5 L MCHC 30.4 L 30.4 L RDW 17.1 H 16.9 H Plt Count 357 356 MPV 10.0 10.4 Immature Gran % (Auto) 0.5 H Neut % (Auto) 70.2 Lymph % (Auto) 18.6 L [place] % (Auto) 6.7 Eos % (Auto) 3.6 Baso % (Auto) 0.4 Lymph # (Auto) 2.3 [place] # (Auto) 0.8 Eos # (Auto) 0.4 Baso # (Auto) 0.1 Abs Immat Gran (auto) 0.06 H Absolute Neuts (auto) 8.5 H Absolute Nucleated RBC 0.000 0.000 Nucleated RBC % (auto) 0.0 0.0 Anion Gap 12 Estim Creat Clear Calc 35.7 Estimated GFR 45 POC Glucose Fasting Glucose 104 H Calcium 8.6 Total Bilirubin 0.6 AST 28 ALT 12 Alkaline Phosphatase 76 Total Protein 6.3 L Albumin 3.1 L Blood Type Antibody Screen 09/20/22 09/20/22 09/20/22 07:19 11:16 13:18 MCV MCH MCHC RDW Plt Count MPV Immature Gran % (Auto) Neut % (Auto) Lymph % (Auto) [place] % (Auto) Eos % (Auto) Baso % (Auto) Lymph # (Auto) [place] # (Auto) Eos # (Auto) Baso # (Auto) Abs Immat Gran (auto) Absolute Neuts (auto) Absolute Nucleated RBC Nucleated RBC % (auto) Anion Gap Estim Creat Clear Calc Estimated GFR POC Glucose 115 118 H 107 Fasting Glucose Calcium Total Bilirubin AST ALT Alkaline Phosphatase Total Protein Albumin Blood Type Antibody Screen Assessment and Plan (1) Encephalopathy: Status: Acute (2) Osteomyelitis: Status: Acute (3) Chronic kidney disease, stage 3b: Status: Acute Plan 81-year-old male with a PMH significant for?COPD, CVA, HTN, insulin-dependent diabetes, dementia, and HLD who presents to the ED?from a SNF with pain at the site of a recent amputation of the first digit of his right foot. Pt was treated with ceftriaxone and vanco. Pt will be admitted to the hospital for treatment of osteomyelitis with IV antibiotics. 1.Toxic metabolic encpehalopathy (likely multifactorial) -follow clinically 2. Osteomyelitis right foot -Vanco/levofloxacin (6) -right BKA this afternoon 3.ELIZABETH on CKD -back to baseline -follow-up renals/divalents 3.HTN -acceptable control of therapies -add back as appropriate 4.Insulin-dependent diabetes -acceptable control with basal and sliding scale -continue Jardiance -adjust as indicated Full Code Jennifer Will need ongoing hospitalization for IV antibiotics to treat osteomyelitis right foot pending BKA on right Time Spent With Patient Time: Total time managing care of this patient today ____ minutes. Quality Stroke Does the patient have a stroke diagnosis?: No VTE Prior VTE?: No VTE Risk Level:: Medical - moderate - high VTE Device Contraindication: Treatment Not Indicated VTE Drug Contraindication: N/A - Med Ordered
--- NOTE | 2022-09-20 15:39 | W.PM.OPN ---
Operative Note Operative Note Date of Service: 09/20/22 Narrative: Operative note by [facility] Preoperative diagnosis:1. 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 Osteomyelitis Postoperative diagnosis: Same Procedure:1. Right below-knee amputation 2. Myodesis Surgeon:Elmer Tee M.D. Pullman Car Repairer: None Anesthesia: Block with sedation Specimens: 1 Drains: None Estimated blood loss: 100 mL Indications: 81-year-old diabetic gentleman with history of right great toe amputation that is nonhealing in addition to significant heel ulceration which penetrates to bone. It addition he has a significant amount pain. He now presents for right below-knee amputation. The patient has signed the informed consent after reviewing risks, complications, benefits, and alternatives previously discussed with the patient. The patient was given the opportunity to ask any additional questions or voice any concerns. We also reviewed all of this with the daughter who gives consent as the patient does have confusion. This was discussed with the patient's daughter yesterday and telephone consent was obtained today All questions were answered to the patient's satisfaction. Procedure in detail: Patient was brought to the operating room prior to which a time-out was called for patient identification site verification right leg was prepped and draped in standard surgical fashion curvilinear incision was carried out through the anterior portion approximately 10 cm below the tibial tuberosity. Once this was accomplished we did posterior curvilinear incision to create a flap. Went down through the subcu fascia. We then used a [place] elevator to retract the muscle off the bone the tibia. A reverse hockey stick incision was created on the bone using a power saw. In addition week cut a cost the fibula approximately 2-3 inches above that. Once this was all accomplished bleeding vessels were tied off with 2-0 silk ties. We filed down the bone. Using a drill we then went across the tibia. Using 2 0 silk stitches we tied this and brought the muscle to the bone. An performed a myodesis. Once this was accomplished we then brought the fascial layers from the posterior flap up to the anterior portion. An interrupted fashion we used 2.20 poly Sorb tear of bring together the fascia. Superficial layer was brought together with 3-0 poly Sorb finally skin was closed using a 2 0 nylon in a mattress fashion. In addition skin clips was used. Sterile dressing was applied. At the end the case sponge instrument counts were correct. Patient tolerated the procedure well. Returned to recovery with stable vitals. This note is constructed using voice recognition software. While every effort has been made to ensure accuracy, turkey farmer errors may have been included. Thank you for allowing me to participate in the care of your patient. Yours sincerely, Elmer Tee MD, FACS, R.P.V.I.
[2022-09-20 16:35] LABS: Glucose, Whole Blood 101 mg/dL (60-115)
[2022-09-20 17:04] LABS: Vancomycin Random 13.9 mcg/mL (15-20)
--- NOTE | 2022-09-20 17:27 | HE.PHANOTE ---
Vancomycin Dosing Addendum Vancomycin Trough 13.9, continue with current regimen. Auc approximately 465, Creatinine stable
[2022-09-20] MEDS: vancomycin HCL 1,000 MG in 0.9 % Sodium Chloride 250 ML 270 MG IV (17:40)
[2022-09-20] MEDS: Enoxaparin Sodium 30 MG/0.3 ML SYRINGE SUBCUT (20:14)
[2022-09-20] MEDS: polyethylene glycoL 3350 17 GM POWD.PACK PO (20:31)
[2022-09-20] MEDS: Atorvastatin Calcium 80 MG TABLET PO (20:31)
[2022-09-20 20:50] LABS: Glucose, Whole Blood 121 mg/dL (60-115)
[2022-09-20] MEDS: Insulin Glargine,Hum.rec.anlog 100 UNIT/ML 10 ML VIAL 10 UNIT SUBCUT (21:42)
[2022-09-21] MEDS: HYDROmorphone HCl 1 MG/ML SYRINGE 0.5 MG IVPUSH (00:55)
[2022-09-21 02:15] VITALS: BP 126/71; PULSE 100; RESP 16; TEMP 37.4; O2SAT 96
[2022-09-21] MEDS: oxyCODONE HCl Immed Release 5 MG TABLET PO ×3 (02:58→20:34)
[2022-09-21] MEDS: Acetaminophen 325 MG TABLET 650 MG PO ×3 (02:58→20:34)
[2022-09-21 05:57] LABS: MANUAL DIFF FLAG NO
[2022-09-21] MEDS: Omeprazole 20 MG CAPSULE.DR PO (05:57)
[2022-09-21 06:00] LABS: Basophils Percent Auto 0.3 % (0-2); Hematocrit 23.7 % (42.0-52.0); Hemoglobin 7.4 g/dl (14.0-18.0); Imm Gran Abs Auto 0.08 X10*3/uL (0.00-0.03); Imm Gran Pct Auto 0.6 % (0.0-0.4); Lymphocytes Absolute Auto 1.3 X10*3/uL (1.2-4.9); Lymphocytes Percent Auto 8.7 % (20-40); Mean Corpuscular HGB Conc 31.2 g/dl (31.0-36.0); Mean Corpuscular Hemoglobin 25.1 pg (27.0-33.0); Mean Corpuscular Volume 80.3 fL (80.0-98.0); Mean Platelet Volume 10.3 fL (9.4-12.4); Monocytes Absolute Auto 1.2 X10*3/uL (0.1-1.2); Neutrophils Absolute Auto 11.9 x10*3/uL (2.0-8.3); Neutrophils Percent Auto 82.4 % (45-73); Platelet Count 349 X10*3/uL (160-400); Red Blood Count 2.95 X10*6/uL (4.60-5.80); White Blood Count 14.4 X10*3/uL (4.8-10.8)
[2022-09-21 06:18] LABS: Alanine Aminotransferase 14 U/L (0-40); Albumin Level 3.1 g/dL (3.5-5.0); Alkaline Phosphatase 79 U/L (39-117); Anion Gap 14 (12-20); Aspartate Amino Transferase 45 U/L (5-37); Bilirubin Total 0.8 mg/dL (0.0-1.0); Blood Urea Nitrogen 22 mg/dL (9-16); Calcium 8.6 mg/dL (8.4-10.2); Carbon Dioxide 26 mmol/L (22-29); Chloride 106 mmol/L (96-108); Creatinine Clr Calc Pharmacy 36.9; Estimated Glomerular Filt Rate 47; Glucose Fasting 187 mg/dL (60-99); Potassium 3.9 mmol/L (3.3-5.1); Sodium 142 mmol/L (135-145); Total Protein 6.4 g/dL (6.5-8.0)
[2022-09-21 07:39] LABS: Glucose, Whole Blood 191 mg/dL (60-115)
[2022-09-21] MEDS: Insulin Lispro 100 UNIT/ML 3 ML VIAL SUBCUT ×3 (07:50→20:32)
[2022-09-21 08:00] VITALS: BP 155/76; PULSE 80; RESP 16; TEMP 36.6; O2SAT 95
--- NOTE | 2022-09-21 08:58 | HO.POSTANES ---
Post Anesthesia Evaluation Post Anesthesia Evaluation Vital Signs: Vital Signs Temp Pulse Resp BP Pulse Ox O2 Del Method O2 Flow Rate 09/21/22 08:00 97.8 F 80 16 155/76 H 95 Nasal Cannula 2 09/21/22 02:15 99.3 F 100 16 126/71 96 Room Air Anesthesia: Monitored Mental Status: Awake Pain Control: Satisfactory Nausea/Vomiting: None Hydration: Adequate Anesthesia-Related Issues: No Anes. Related Issues
[2022-09-21 09:25] VITALS: BP 137/66; PULSE 83
[2022-09-21] MEDS: Aspirin 81 MG TAB.CHEW PO (09:35)
[2022-09-21] MEDS: Docusate Sodium 100 MG CAPSULE PO (09:35)
[2022-09-21] MEDS: Metoprolol Succinate ER 50 MG TAB.ER.24H PO (09:35)
[2022-09-21] MEDS: Empagliflozin 10 MG TABLET PO (09:35)
[2022-09-21] MEDS: hydrOXYzine HCL 10 MG TABLET PO ×3 (09:36→20:31)
[2022-09-21] MEDS: polyethylene glycoL 3350 17 GM POWD.PACK PO ×2 (09:36→20:31)
[2022-09-21] MEDS: Cholecalciferol (Vitamin D3) 25 MCG TABLET PO (09:36)
[2022-09-21] MEDS: Mineral Oil/Petrolatum,White 106 GM Tube 1 APPL TOPICAL ×2 (09:37→20:43)
[2022-09-21] MEDS: 0.9 % Sodium Chloride Flush 3 ML SYRINGE IVFLUSH ×3 (10:49→20:43)
--- NOTE | 2022-09-21 11:18 | HO.PM.IMPN ---
Subjective Subjective Date of Service: 09/21/22 Interval History: No acute issues overnight. Pain control adequate Review of Systems Denies chest pain Denies shortness of breath Denies nausea vomiting diarrhea Denies fever chills Physical Exam Vital Signs: Vital Signs: Last Vital Signs Temp 97.8 F 09/21/22 08:00 Pulse 83 09/21/22 09:25 Resp 16 09/21/22 08:00 BP 137/66 09/21/22 09:25 Pulse Ox 95 09/21/22 08:00 O2 Del Method Nasal Cannula 09/21/22 08:00 O2 Flow Rate 2 09/21/22 08:00 BMI result Body Mass Index 26.6 Const: Other: No acute distress Resp: Other: Clear to auscultation bilaterally no rales rhonchi wheezes Cardio: Other: No S4; positive S1-S2; no S3 murmurs rubs or gallops GI: Other: Soft nontender nondistended normoactive bowel sounds Extrem: Other: See initial ER photos Objective Data Active Medications Acetaminophen (Acetaminophen 325 Mg Tablet) 650 mg PO Q6H PRN PRN Reason: Pain, Mild (Pain Scale 1-3) Last Admin: 09/21/22 02:58 Dose: 650 mg Documented By: FAUSTINA Aspirin (Aspirin 81 Mg Tab.Chew) 81 mg PO DAILY [facility] Last Admin: 09/21/22 09:35 Dose: 81 mg Documented By: DURGA Atorvastatin Calcium (Atorvastatin Calcium 80 Mg Tablet) 80 mg PO BEDTIME [facility] Last Admin: 09/20/22 20:31 Dose: 80 mg Documented By: FAUSTINA Docusate Sodium (Docusate Sodium 100 Mg Capsule) 100 mg PO DAILY [facility] Last Admin: 09/21/22 09:35 Dose: 100 mg Documented By: DURGA Empagliflozin (Empagliflozin 10 Mg Tablet) 10 mg PO DAILY [facility] Last Admin: 09/21/22 09:35 Dose: 10 mg Documented By: DURGA Enoxaparin Sodium (Enoxaparin Sodium 30 Mg/0.3 Ml Syringe) 30 mg SUBCUT Q24H [facility] Last Admin: 09/20/22 20:14 Dose: 30 mg Documented By: FAUSTINA Glucose (Glucose Gel 15 Gm Gel..Gram.) 15 gm PO Q15M PRN; Protocol PRN Reason: per Hypoglycemia Standing Ord. Hydromorphone HCl (Hydromorphone Hcl 1 Mg/Ml Syringe) 0.5 mg IVPUSH Q4H PRN; Protocol PRN Reason: Pain, Mild (Pain Scale 1-3) Last Admin: 09/21/22 00:55 Dose: 0.5 mg Documented By: JOANNE Hydroxyzine HCl (Hydroxyzine Hcl 10 Mg Tablet) 10 mg PO TID [facility] Last Admin: 09/21/22 09:36 Dose: 10 mg Documented By: DURGA Dextrose (D10) 250 mls @ 750 mls/hr IV Q15M PRN; Protocol PRN Reason: per Hypoglycemia Standing Ord. Levofloxacin (Levaquin) 750 mg in 150 mls @ 100 mls/hr IV Q48H [facility] Last Infusion: 09/19/22 22:27 Dose: 0 mls/hr Documented By: JOANNE Vancomycin HCl 1,000 mg/ (Sodium Chloride) 270 mls @ 270 mls/hr IV Q24H [facility] Last Infusion: 09/20/22 20:27 Dose: 0 mls/hr Documented By: FAUSTINA Insulin Glargine (Insulin Glargine,Hum.Rec.Anlog 100 Unit/Ml 10 Ml Vial) 10 unit SUBCUT BEDTIME [facility] Last Admin: 09/20/22 21:42 Dose: 10 unit Documented By: FAUSTINA Insulin Human Lispro (Insulin Lispro 100 Unit/Ml 3 Ml Vial) 0 unit SUBCUT QIDACHS [facility]; Protocol Last Admin: 09/21/22 08:25 Dose: 2 unit Documented By: DURGA Metoprolol Succinate (Metoprolol Succinate Er 50 Mg Tab.Er.24h) 50 mg PO DAILY [facility]; Protocol Last Admin: 09/21/22 09:35 Dose: 50 mg Documented By: DURGA Multi-Ingred Cream/Lotion/Oil/Oint (Mineral Oil/Petrolatum,White 106 Gm Tube) 1 appl TOPICAL BID [facility]; Protocol Last Admin: 09/21/22 09:37 Dose: 1 appl Documented By: DURGA Omeprazole (Omeprazole 20 Mg Capsule.) 20 mg PO DAILY@0630 [facility] Last Admin: 09/21/22 05:57 Dose: 20 mg Documented By: JOANNE Oxycodone HCl (Oxycodone Hcl Immed Release 5 Mg Tablet) 5 mg PO Q4H PRN PRN Reason: Pain, Severe (Pain Scale 7-10) Last Admin: 09/21/22 09:35 Dose: 5 mg Documented By: DURGA Pharmacy Consult (Consult Rx Perform Med Rec) 1 each MISCELLANE ONCE PRN PRN Reason: Consult order Pharmacy Consult (Consult Rx Vancomycin Dosing) 1 each MISCELLANE DAILY PRN PRN Reason: Consult order Polyethylene Glycol (Polyethylene Glycol 3350 17 Gm Powd.Pack) 17 gm PO BID [facility] Last Admin: 09/21/22 09:36 Dose: 17 gm Documented By: DURGA Sodium Chloride (0.9 % Sodium Chloride Flush 3 Ml Syringe) 3 ml IVFLUSH QSHIFT [facility] Last Admin: 09/21/22 10:49 Dose: 3 ml Documented By: VERONICA Vitamin D (Cholecalciferol (Vitamin D3) 25 Mcg Tablet) 25 mcg PO DAILY [facility] Last Admin: 09/21/22 09:36 Dose: 25 mcg Documented By: DURGA Labs 09/21/22 05:37 09/21/22 05:37 Labs: Laboratory Results - last 24 hr 09/20/22 09/20/22 09/20/22 11:16 13:18 16:22 MCV MCH MCHC RDW Plt Count MPV Immature Gran % (Auto) Neut % (Auto) Lymph % (Auto) [place] % (Auto) Eos % (Auto) Baso % (Auto) Lymph # (Auto) [place] # (Auto) Eos # (Auto) Baso # (Auto) Abs Immat Gran (auto) Absolute Neuts (auto) Absolute Nucleated RBC Nucleated RBC % (auto) Anion Gap Estim Creat Clear Calc Estimated GFR POC Glucose 118 H 107 Fasting Glucose Calcium Total Bilirubin AST ALT Alkaline Phosphatase Total Protein Albumin Random Vancomycin 13.9 L 09/20/22 09/20/22 09/21/22 16:25 20:46 05:37 MCV MCH MCHC RDW Plt Count MPV Immature Gran % (Auto) Neut % (Auto) Lymph % (Auto) [place] % (Auto) Eos % (Auto) Baso % (Auto) Lymph # (Auto) [place] # (Auto) Eos # (Auto) Baso # (Auto) Abs Immat Gran (auto) Absolute Neuts (auto) Absolute Nucleated RBC Nucleated RBC % (auto) Anion Gap 14 Estim Creat Clear Calc 36.9 Estimated GFR 47 POC Glucose 101 121 H Fasting Glucose 187 H Calcium 8.6 Total Bilirubin 0.8 AST 45 H ALT 14 Alkaline Phosphatase 79 Total Protein 6.4 L Albumin 3.1 L Random Vancomycin 09/21/22 09/21/22 05:37 07:35 MCV 80.3 MCH 25.1 L MCHC 31.2 RDW 17.0 H Plt Count 349 MPV 10.3 Immature Gran % (Auto) 0.6 H Neut % (Auto) 82.4 H Lymph % (Auto) 8.7 L [place] % (Auto) 8.0 Eos % (Auto) 0.0 Baso % (Auto) 0.3 Lymph # (Auto) 1.3 [place] # (Auto) 1.2 Eos # (Auto) 0.0 Baso # (Auto) 0.0 Abs Immat Gran (auto) 0.08 H Absolute Neuts (auto) 11.9 H Absolute Nucleated RBC 0.000 Nucleated RBC % (auto) 0.0 Anion Gap Estim Creat Clear Calc Estimated GFR POC Glucose 191 H Fasting Glucose Calcium Total Bilirubin AST ALT Alkaline Phosphatase Total Protein Albumin Random Vancomycin Microbiology Microbiology Results: Microbiology 09/16/22 00:16 Blood Culture - Final Blood - Venous No growth after 5 days. 09/16/22 00:16 Blood Culture - Final Blood - Venous No growth after 5 days. Assessment and Plan (1) Osteomyelitis: Status: Acute (2) Right below-knee amputee: Status: Acute (3) HTN (hypertension): Status: Acute Plan 81-year-old male with a PMH significant for?COPD, CVA, HTN, insulin-dependent diabetes, dementia, and HLD who presents to the ED?from a SNF with pain at the site of a recent amputation of the first digit of his right foot. Pt was treated with ceftriaxone and vanco. Pt will be admitted to the hospital for treatment of osteomyelitis with IV antibiotics. 1. Osteomyelitis right foot s/p RBKA -Vanco/levofloxacin (7) -will likely need rehab 2.ELIZABETH on CKD -back to baseline -follow-up renals/divalents 3.HTN -acceptable control of therapies -add back as appropriate 4.Insulin-dependent diabetes -acceptable control with basal and sliding scale -continue Jardiance -adjust as indicated Full Code Jennifer Will need ongoing hospitalization for IV antibiotics to treat osteomyelitis right foot pending BKA on right Time Spent With Patient Time: Total time managing care of this patient today ____ minutes. Quality Stroke Does the patient have a stroke diagnosis?: No VTE Prior VTE?: No VTE Risk Level:: Medical - moderate - high VTE Device Contraindication: Treatment Not Indicated VTE Drug Contraindication: N/A - Med Ordered
[2022-09-21 11:40] LABS: Glucose, Whole Blood 151 mg/dL (60-115)
[2022-09-21 16:17] VITALS: BP 137/65; PULSE 64; RESP 18; TEMP 36; O2SAT 93
[2022-09-21 17:05] LABS: Glucose, Whole Blood 215 mg/dL (60-115)
[2022-09-21] MEDS: vancomycin HCL 1,000 MG in 0.9 % Sodium Chloride 250 ML 270 MG IV (17:25)
[2022-09-21] MEDS: levoFLOXacin/D5W 750 MG/150 ML PIGGYBACK 100 MG IV (19:33)
[2022-09-21] MEDS: Enoxaparin Sodium 30 MG/0.3 ML SYRINGE SUBCUT (19:34)
[2022-09-21 19:58] VITALS: BP 173/74; PULSE 71; RESP 16; TEMP 36.2; O2SAT 93
[2022-09-21 20:12] LABS: Glucose, Whole Blood 157 mg/dL (60-115)
[2022-09-21] MEDS: Atorvastatin Calcium 80 MG TABLET PO (20:31)
[2022-09-21] MEDS: Insulin Glargine,Hum.rec.anlog 100 UNIT/ML 10 ML VIAL 10 UNIT SUBCUT (20:31)
[2022-09-22] MEDS: oxyCODONE HCl Immed Release 5 MG TABLET PO ×4 (00:09→20:18)
[2022-09-22 04:00] VITALS: BP 132/66; PULSE 65; RESP 16; TEMP 36.3; O2SAT 98
[2022-09-22] MEDS: Acetaminophen 325 MG TABLET 650 MG PO (04:32)
[2022-09-22] MEDS: Omeprazole 20 MG CAPSULE.DR PO (06:46)
[2022-09-22 07:16] VITALS: BP 153/68; PULSE 67; RESP 18; TEMP 36.8; O2SAT 94
[2022-09-22 07:47] LABS: Glucose, Whole Blood 139 mg/dL (60-115)
[2022-09-22 08:17] LABS: MANUAL DIFF FLAG NO
[2022-09-22 08:18] LABS: Basophils Percent Auto 0.3 % (0-2); Eosinophils Absolute Auto 0.2 X10*3/uL (0.0-0.4); Eosinophils Percent Auto 1.4 % (0-4); Hematocrit 24.4 % (42.0-52.0); Hemoglobin 7.5 g/dl (14.0-18.0); Imm Gran Abs Auto 0.07 X10*3/uL (0.00-0.03); Imm Gran Pct Auto 0.5 % (0.0-0.4); Lymphocytes Absolute Auto 2.2 X10*3/uL (1.2-4.9); Lymphocytes Percent Auto 15.9 % (20-40); Mean Corpuscular HGB Conc 30.7 g/dl (31.0-36.0); Mean Corpuscular Hemoglobin 24.6 pg (27.0-33.0); Monocytes Absolute Auto 1.2 X10*3/uL (0.1-1.2); Monocytes Percent Auto 8.5 % (2-11); Neutrophils Absolute Auto 10.2 x10*3/uL (2.0-8.3); Neutrophils Percent Auto 73.4 % (45-73); Platelet Count 345 X10*3/uL (160-400); Red Blood Count 3.05 X10*6/uL (4.60-5.80); Red Cell Distribution Width 17.2 % (11.0-16.0)
[2022-09-22] MEDS: polyethylene glycoL 3350 17 GM POWD.PACK PO ×2 (08:52→20:19)
[2022-09-22] MEDS: Mineral Oil/Petrolatum,White 106 GM Tube 1 APPL TOPICAL ×2 (08:53→20:29)
[2022-09-22] MEDS: Metoprolol Succinate ER 50 MG TAB.ER.24H PO (08:53)
[2022-09-22] MEDS: 0.9 % Sodium Chloride Flush 3 ML SYRINGE IVFLUSH ×3 (08:53→20:27)
[2022-09-22] MEDS: Aspirin 81 MG TAB.CHEW PO (08:53)
[2022-09-22] MEDS: Empagliflozin 10 MG TABLET PO (08:53)
[2022-09-22] MEDS: hydrOXYzine HCL 10 MG TABLET PO ×3 (08:53→20:18)
[2022-09-22] MEDS: Cholecalciferol (Vitamin D3) 25 MCG TABLET PO (08:53)
[2022-09-22 08:56] LABS: Alanine Aminotransferase 13 U/L (0-40); Albumin Level 2.8 g/dL (3.5-5.0); Alkaline Phosphatase 73 U/L (39-117); Anion Gap 13 (12-20); Aspartate Amino Transferase 40 U/L (5-37); Bilirubin Total 0.6 mg/dL (0.0-1.0); Blood Urea Nitrogen 19 mg/dL (9-16); Calcium 8.3 mg/dL (8.4-10.2); Carbon Dioxide 27 mmol/L (22-29); Chloride 107 mmol/L (96-108); Creatinine Clr Calc Pharmacy 42.5; Estimated Glomerular Filt Rate 55; Glucose Fasting 137 mg/dL (60-99); Potassium 3.7 mmol/L (3.3-5.1); Sodium 143 mmol/L (135-145); Total Protein 5.9 g/dL (6.5-8.0)
--- NOTE | 2022-09-22 10:54 | P.PNIM_ITS ---
Subjective Subjective Date of Service: 09/22/22 Interval History: Seen and evaluated Pain under fair control No reported fever or chills no other overnight events Review of Systems Review of Systems: Yes all other systems are reviewed and are negative Physical Exam Vital Signs: Vital Signs: Last Vital Signs Temp 98.2 F 09/22/22 07:16 Pulse 67 09/22/22 07:16 Resp 18 09/22/22 07:16 BP 153/68 H 09/22/22 07:16 Pulse Ox 94 09/22/22 07:16 O2 Del Method Room Air 09/22/22 07:16 O2 Flow Rate 2 09/21/22 08:00 BMI result Body Mass Index 26.6 Const: Other: Constitutional : Awake, not in distress Neck : Normal inspection, Supple Cardiovascular : RRR, no JVP, no lower extremity edema Respiratory : good bilateral air entry, no crackles, wheezes or rhonchi Gastrointestinal: soft, lax, Normal bowel sounds, Non tender Skin : Warm, Dry Skeletal: Right below knee amputation covered with dressing Neurological : Alert & oriented x3, No focal deficit Objective Data Active Medications Acetaminophen (Acetaminophen 325 Mg Tablet) 650 mg PO Q6H PRN PRN Reason: Pain, Mild (Pain Scale 1-3) Last Admin: 09/22/22 04:32 Dose: 650 mg Documented By: IRON Aspirin (Aspirin 81 Mg Tab.Chew) 81 mg PO DAILY [facility] Last Admin: 09/22/22 08:53 Dose: 81 mg Documented By: DONALD Atorvastatin Calcium (Atorvastatin Calcium 80 Mg Tablet) 80 mg PO BEDTIME [facility] Last Admin: 09/21/22 20:31 Dose: 80 mg Documented By: FAUSTINA Docusate Sodium (Docusate Sodium 100 Mg Capsule) 100 mg PO DAILY [facility] Last Admin: 09/22/22 08:55 Dose: Not Given Documented By: DONALD Non-Admin Reason: Patient Refused Empagliflozin (Empagliflozin 10 Mg Tablet) 10 mg PO DAILY [facility] Last Admin: 09/22/22 08:53 Dose: 10 mg Documented By: DONALD Enoxaparin Sodium (Enoxaparin Sodium 30 Mg/0.3 Ml Syringe) 30 mg SUBCUT Q24H [facility] Last Admin: 09/21/22 19:34 Dose: 30 mg Documented By: FAUSTINA Glucose (Glucose Gel 15 Gm Gel..Gram.) 15 gm PO Q15M PRN; Protocol PRN Reason: per Hypoglycemia Standing Ord. Hydroxyzine HCl (Hydroxyzine Hcl 10 Mg Tablet) 10 mg PO TID [facility] Last Admin: 09/22/22 08:53 Dose: 10 mg Documented By: DONALD Dextrose (D10) 250 mls @ 750 mls/hr IV Q15M PRN; Protocol PRN Reason: per Hypoglycemia Standing Ord. Levofloxacin (Levaquin) 750 mg in 150 mls @ 100 mls/hr IV Q48H [facility] Last Infusion: 09/21/22 21:53 Dose: 0 mls/hr Documented By: FAUSTINA Vancomycin HCl 1,000 mg/ (Sodium Chloride) 270 mls @ 270 mls/hr IV Q24H [facility] Last Infusion: 09/21/22 18:44 Dose: 0 mls/hr Documented By: VERONICA Insulin Glargine (Insulin Glargine,Hum.Rec.Anlog 100 Unit/Ml 10 Ml Vial) 10 unit SUBCUT BEDTIME [facility] Last Admin: 09/21/22 20:31 Dose: 10 unit Documented By: FAUSTINA Insulin Human Lispro (Insulin Lispro 100 Unit/Ml 3 Ml Vial) 0 unit SUBCUT QIDACHS [facility]; Protocol Last Admin: 09/22/22 08:17 Dose: Not Given Documented By: DONALD Non-Admin Reason: No Insulin Coverage Metoprolol Succinate (Metoprolol Succinate Er 50 Mg Tab.Er.24h) 50 mg PO DAILY [facility]; Protocol Last Admin: 09/22/22 08:53 Dose: 50 mg Documented By: DONALD Multi-Ingred Cream/Lotion/Oil/Oint (Mineral Oil/Petrolatum,White 106 Gm Tube) 1 appl TOPICAL BID [facility]; Protocol Last Admin: 09/22/22 08:53 Dose: 1 appl Documented By: DONALD Omeprazole (Omeprazole 20 Mg Capsule.) 20 mg PO DAILY@0630 [facility] Last Admin: 09/22/22 06:46 Dose: 20 mg Documented By: IRON Oxycodone HCl (Oxycodone Hcl Immed Release 5 Mg Tablet) 5 mg PO Q4H PRN PRN Reason: Pain, Severe (Pain Scale 7-10) Last Admin: 09/22/22 07:13 Dose: 5 mg Documented By: IRON Pharmacy Consult (Consult Rx Perform Med Rec) 1 each MISCELLANE ONCE PRN PRN Reason: Consult order Pharmacy Consult (Consult Rx Vancomycin Dosing) 1 each MISCELLANE DAILY PRN PRN Reason: Consult order Polyethylene Glycol (Polyethylene Glycol 3350 17 Gm Powd.Pack) 17 gm PO BID [facility] Last Admin: 09/22/22 08:52 Dose: 17 gm Documented By: DONALD Sodium Chloride (0.9 % Sodium Chloride Flush 3 Ml Syringe) 3 ml IVFLUSH QSHIFT [facility] Last Admin: 09/22/22 08:53 Dose: 3 ml Documented By: DONALD Vitamin D (Cholecalciferol (Vitamin D3) 25 Mcg Tablet) 25 mcg PO DAILY [facility] Last Admin: 09/22/22 08:53 Dose: 25 mcg Documented By: DONALD Labs 09/22/22 08:12 09/22/22 08:12 Labs: Laboratory Results - last 24 hr 09/21/22 09/21/22 09/21/22 11:32 16:19 19:59 MCV MCH MCHC RDW Plt Count MPV Immature Gran % (Auto) Neut % (Auto) Lymph % (Auto) Davie % (Auto) Eos % (Auto) Baso % (Auto) Lymph # (Auto) Davie # (Auto) Eos # (Auto) Baso # (Auto) Abs Immat Gran (auto) Absolute Neuts (auto) Absolute Nucleated RBC Nucleated RBC % (auto) Anion Gap Estim Creat Clear Calc Estimated GFR POC Glucose 151 H 215 H 157 H Fasting Glucose Calcium Total Bilirubin AST ALT Alkaline Phosphatase Total Protein Albumin 09/22/22 09/22/22 09/22/22 07:14 08:12 08:12 MCV 80.0 MCH 24.6 L MCHC 30.7 L RDW 17.2 H Plt Count 345 MPV 10.0 Immature Gran % (Auto) 0.5 H Neut % (Auto) 73.4 H Lymph % (Auto) 15.9 L Davie % (Auto) 8.5 Eos % (Auto) 1.4 Baso % (Auto) 0.3 Lymph # (Auto) 2.2 Davie # (Auto) 1.2 Eos # (Auto) 0.2 Baso # (Auto) 0.0 Abs Immat Gran (auto) 0.07 H Absolute Neuts (auto) 10.2 H Absolute Nucleated RBC 0.000 Nucleated RBC % (auto) 0.0 Anion Gap 13 Estim Creat Clear Calc 42.5 Estimated GFR 55 POC Glucose 139 H Fasting Glucose 137 H Calcium 8.3 L Total Bilirubin 0.6 AST 40 H ALT 13 Alkaline Phosphatase 73 Total Protein 5.9 L Albumin 2.8 L Assessment and Plan (1) Right below-knee amputee: Status: Acute (2) Diabetic ulcer of right foot: Status: Acute (3) Osteomyelitis: Status: Acute Plan 81-year-old male with a PMH significant for?COPD, CVA, HTN, insulin-dependent diabetes, dementia, and HLD who presents to the ED?from a SNF with pain at the site of a recent amputation of the first digit of his right foot. Pt was treated with ceftriaxone and vanco. Pt will be admitted to the hospital for treatment of osteomyelitis with IV antibiotics. 1. Osteomyelitis right foot s/p RBKA POD 2 change to PO Abx of Doxycycline Vascular surgery following Pain meds will need rehab 2.ELIZABETH on CKD back to baseline follow-up BMP 3.HTN fairly controlled 4.Insulin-dependent diabetes controlled with basal and sliding scale continue Jardiance adjust as indicated Full Code Jennifer Will need ongoing hospitalization for IV antibiotics post BKA on right pending safe discharge plan Time Spent With Patient Time: Total time managing care of this patient today ____ minutes. Quality Stroke Does the patient have a stroke diagnosis?: No VTE Prior VTE?: No VTE Risk Level:: Medical - moderate - high VTE Device Contraindication: Treatment Not Indicated VTE Drug Contraindication: N/A - Med Ordered
[2022-09-22 11:18] LABS: Glucose, Whole Blood 198 mg/dL (60-115)
[2022-09-22] MEDS: Doxycycline Monohydrate 100 MG CAPSULE PO ×2 (12:05→20:17)
[2022-09-22] MEDS: Insulin Lispro 100 UNIT/ML 3 ML VIAL SUBCUT ×2 (12:05→20:23)
[2022-09-22 15:16] VITALS: BP 153/65; PULSE 74; RESP 16; TEMP 36.1; O2SAT 94
[2022-09-22 16:20] LABS: Glucose, Whole Blood 141 mg/dL (60-115)
[2022-09-22 19:55] VITALS: BP 150/56; PULSE 74; RESP 17; TEMP 36.6; O2SAT 92
[2022-09-22] MEDS: Atorvastatin Calcium 80 MG TABLET PO (20:17)
[2022-09-22] MEDS: Insulin Glargine,Hum.rec.anlog 100 UNIT/ML 10 ML VIAL 10 UNIT SUBCUT (20:24)
[2022-09-22 20:27] LABS: Glucose, Whole Blood 188 mg/dL (60-115)
--- NOTE | 2022-09-23 | PC.NURSE ---
Approximately around 20:25, pt refused his Lovenox medication. This RN educated the pt about the importance of the medication but still refused it. MD Hong notified of the refusal of medication.
[2022-09-23 03:35] VITALS: BP 167/73; PULSE 73; RESP 17; TEMP 36.5; O2SAT 93
[2022-09-23] MEDS: Omeprazole 20 MG CAPSULE.DR PO (06:06)
[2022-09-23] MEDS: oxyCODONE HCl Immed Release 5 MG TABLET PO ×2 (06:07→11:57)
[2022-09-23 07:40] VITALS: BP 179/77; PULSE 73; RESP 18; TEMP 37; O2SAT 95
[2022-09-23 07:58] LABS: Glucose, Whole Blood 116 mg/dL (60-115)
[2022-09-23] MEDS: Empagliflozin 10 MG TABLET PO (09:09)
[2022-09-23] MEDS: polyethylene glycoL 3350 17 GM POWD.PACK PO (09:09)
[2022-09-23] MEDS: Doxycycline Monohydrate 100 MG CAPSULE PO (09:09)
[2022-09-23] MEDS: Aspirin 81 MG TAB.CHEW PO (09:09)
[2022-09-23] MEDS: Metoprolol Succinate ER 50 MG TAB.ER.24H PO (09:09)
[2022-09-23] MEDS: Cholecalciferol (Vitamin D3) 25 MCG TABLET PO (09:10)
[2022-09-23] MEDS: Ferrous Sulfate 324 MG TABLET.DR PO (09:10)
[2022-09-23] MEDS: hydrOXYzine HCL 10 MG TABLET PO ×2 (09:10→15:07)
[2022-09-23] MEDS: Mineral Oil/Petrolatum,White 106 GM Tube 1 APPL TOPICAL (09:14)
[2022-09-23] MEDS: 0.9 % Sodium Chloride Flush 3 ML SYRINGE IVFLUSH ×2 (09:14→15:08)
--- NOTE | 2022-09-23 09:21 | HO.VASCPN ---
Subjective Subjective Date of Service: 09/23/22 Patient reports: no new complaints and feels better Interval history: Is postop day 3 status post right below-knee amputation. Overall doing fairly well. Pain well controlled Physical Exam Vital Signs: Vital Signs: Last Vital Signs Temp 98.6 F 09/23/22 07:40 Pulse 73 09/23/22 07:40 Resp 18 09/23/22 07:40 BP 179/77 H 09/23/22 07:40 Pulse Ox 95 09/23/22 07:40 O2 Del Method Room Air 09/23/22 07:40 O2 Flow Rate 2 09/21/22 08:00 BMI result Body Mass Index 26.6 Const: General: cooperative, healthy appearing and no acute distress Orientation/consciousness: oriented to person, oriented to place and oriented to time HEENT: Head: Yes normal to inspection Neck: Carotids: no bruits Chest: Chest palpation & inspection: normal inspection of the chest Resp: Effort & Inspection: normal respiratory effort and able to speak in complete sentences Auscultation: clear to auscultation bilaterally Cardio: Rate: regular rate Heart sounds: S1 normal heart sound present and S2 normal heart sound present GI: Inspection: Yes normal to inspection Skin: Other: incision healing well General skin exam: no rashes or lesions noted Wounds: no wounds Neuro: General: oriented to person, oriented to place, oriented to time and CN's II-XI intact bilaterally Extrem: General: Yes normal to inspection, Yes full ROM and Yes no clubbing, cyanosis or edema Psych: Appearance: grossly normal and well kempt Speech and movement: Normal speech and movement present Affect: normal affect Progress Note: A&P Assessment and plan (1) Right below-knee amputee: Status: Acute Assessment and Plan: stable status post right BKA. Dressing changed. Stable from my perspective for transfer to rehab facility. Dressing orders a written. Thank you for allowing me to participate in his care. Time Spent With Patient Time: Total time managing care of this patient today ____ minutes. Procedures Date of Service Date of Service: 09/23/22 Quality Stroke Does the patient have a stroke diagnosis?: No VTE Prior VTE?: No VTE Risk Level:: Medical - moderate - high VTE Device Contraindication: Treatment Not Indicated VTE Drug Contraindication: N/A - Med Ordered
[2022-09-23 10:41] LABS: Hematocrit 24.4 % (42.0-52.0); Hemoglobin 7.6 g/dl (14.0-18.0); Mean Corpuscular HGB Conc 31.1 g/dl (31.0-36.0); Mean Corpuscular Hemoglobin 24.8 pg (27.0-33.0); Mean Corpuscular Volume 79.7 fL (80.0-98.0); Mean Platelet Volume 10.1 fL (9.4-12.4); Platelet Count 392 X10*3/uL (160-400); Red Blood Count 3.06 X10*6/uL (4.60-5.80); Red Cell Distribution Width 17.3 % (11.0-16.0); White Blood Count 14.9 X10*3/uL (4.8-10.8)
[2022-09-23 10:59] LABS: Alanine Aminotransferase 13 U/L (0-40); Albumin Level 2.8 g/dL (3.5-5.0); Alkaline Phosphatase 78 U/L (39-117); Anion Gap 13 (12-20); Aspartate Amino Transferase 34 U/L (5-37); Bilirubin Total 0.7 mg/dL (0.0-1.0); Blood Urea Nitrogen 20 mg/dL (9-16); Calcium 8.3 mg/dL (8.4-10.2); Carbon Dioxide 26 mmol/L (22-29); Chloride 107 mmol/L (96-108); Creatinine Clr Calc Pharmacy 44.3; Estimated Glomerular Filt Rate 58; Glucose Fasting 180 mg/dL (60-99); Iron 13 mcg/dL (45-160); Percent Iron Saturation 8 % (15-50); Sodium 142 mmol/L (135-145); Total Iron Binding Capacity 165 mcg/dL (228-428); Total Protein 6.1 g/dL (6.5-8.0); Unsaturated Iron Binding 152 ug/dL
--- NOTE | 2022-09-23 11:33 | PM.PNNEP ---
Subjective Subjective Date of Service: 09/25/22 Interval history: Seen and evaluated Physical Exam Vital Signs: Vital Signs: Last Vital Signs Temp 98.6 F 09/23/22 07:40 Pulse 73 09/23/22 07:40 Resp 18 09/23/22 07:40 BP 179/77 H 09/23/22 07:40 Pulse Ox 95 09/23/22 07:40 O2 Del Method Room Air 09/23/22 07:40 O2 Flow Rate 2 09/21/22 08:00 BMI result Body Mass Index 26.6 Const: General: no acute distress Eyes: EOM: EOMs intact bilaterally Neck: Neck: Yes supple Resp: Auscultation: diminished lung sounds Cardio: Rate: regular rate GI: Palpation (GI): Soft to palpation Skin: General skin exam: no rashes or lesions noted Neuro: General: moves all extremities Objective Data Labs 09/23/22 10:05 09/23/22 10:05 Labs: Laboratory Results - last 24 hr 09/22/22 09/22/22 09/23/22 16:17 20:00 07:45 WBC RBC Hgb Hct MCV MCH MCHC RDW Plt Count MPV Absolute Nucleated RBC Nucleated RBC % (auto) Sodium Potassium Chloride Carbon Dioxide Anion Gap BUN Creatinine Estim Creat Clear Calc Estimated GFR POC Glucose 141 H 188 H 116 H Fasting Glucose Calcium Iron TIBC % Saturation Unsat Iron Binding Total Bilirubin AST ALT Alkaline Phosphatase Total Protein Albumin 09/23/22 09/23/22 09/23/22 10:05 10:05 10:05 WBC 14.9 H RBC 3.06 L Hgb 7.6 L Hct 24.4 L MCV 79.7 L MCH 24.8 L MCHC 31.1 RDW 17.3 H Plt Count 392 MPV 10.1 Absolute Nucleated RBC 0.000 Nucleated RBC % (auto) 0.0 Sodium 142 Potassium 4.0 Chloride 107 Carbon Dioxide 26 Anion Gap 13 BUN 20 H Creatinine 1.20 Estim Creat Clear Calc 44.3 Estimated GFR 58 POC Glucose Fasting Glucose 180 H Calcium 8.3 L Iron 13 L TIBC 165 L % Saturation 8 L Unsat Iron Binding 152 Total Bilirubin 0.7 AST 34 ALT 13 Alkaline Phosphatase 78 Total Protein 6.1 L Albumin 2.8 L Microbiology Microbiology Results: Microbiology 09/16/22 00:16 Blood - Venous Blood Culture - Final No growth after 5 days. 09/16/22 00:16 Blood - Venous Blood Culture - Final No growth after 5 days. 09/13/22 16:08 Blood - Venous Blood Culture - Final No growth after 5 days. 09/13/22 15:59 Blood - Venous Blood Culture - Final No growth after 5 days. Procedures Date of Service Date of Service: 09/23/22 Assessment & Plan Assessment and plan (1) Chronic kidney disease, stage 3b: Status: Acute Assessment and Plan: Has CKD 3 at baseline, likely due to vascular disease Had been on ARB/Diuretics which has been on hold Renal function back to baseline now Avoid hypotension/ NSAIDs C/W rest of current supportive management Time Spent With Patient Time: Total time managing care of this patient today ____ minutes. Progress Note: Quality Stroke Does the patient have a stroke diagnosis?: No
[2022-09-23 11:36] LABS: Glucose, Whole Blood 181 mg/dL (60-115)
[2022-09-23] MEDS: Acetaminophen 325 MG TABLET 650 MG PO (11:56)
[2022-09-23] MEDS: Insulin Lispro 100 UNIT/ML 3 ML VIAL SUBCUT (11:56)
--- NOTE | 2022-09-23 12:20 | MHC.CM.PN ---
pt to be dcd back to [facility] today at 3;30 via alex message left for family re same
--- NOTE | 2022-09-23 12:32 | PM.DS ---
DS: Providers Provider Date of Service: 09/23/22 Date of admission: 09/13/22 18:27 Primary care physician: Tree Saha MD Consults: 09/13/22 18:55 Consult to Infectious Diseases Routine Consulting Provider: [facility] [place] Infectious Disease Reason for consultation: Osteomyelitis of 1st digit of right foot Consult to Vascular Surgery Routine Consulting Provider: [facility] [place] Vascular Services Reason for consultation: Osteomyelitis of 1st digit of right foot 09/13/22 19:10 Consult to Wound Care Routine Consulting Provider: [facility] [place] Wound Care Management Reason for consultation: Right foot wounds 09/14/22 10:53 Consult to General Surgery Routine Consulting Provider: [facility] [place] General Surgeons Reason for consultation: foot osteo at stump site /on iv antibiotics Has provider been notified: No 09/16/22 09:07 Consult to Neurology Routine Consulting Provider: [facility] Reason for consultation: encpehalopathy-unclear etiology 09/16/22 15:17 Consult to Psychiatry Routine Consulting Provider: [facility] Reason for consultation: dementia with behavioural disturbances Has provider been notified: No DS: Diagnosis Discharge Diagnosis (1) Chronic kidney disease, stage 3b: Status: Acute (2) Right below-knee amputee: Status: Acute (3) Diabetic ulcer of right foot: Status: Acute (4) Osteomyelitis: Status: Acute (5) PAD (peripheral artery disease): Status: Acute (6) TRUPTI (iron deficiency anemia): Status: Acute DS: Summary Hospital Course Hospital Course: Admission note HPI Pt is an 81-year-old male with a PMH significant for?COPD, CVA, HTN, insulin-dependent diabetes, dementia, and HLD who presents to the ED?from a SNF with pain at the site of a recent amputation of the first digit of his right foot. Surgery was performed by Dr. Tee on 07/08/2022. Pt with baseline dementia, significant HPI thus difficult to obtain. Pt complains only of worsening right foot pain centered around surgical site and localized to the foot. Does not radiate to leg. Pt has no other complaints: no oozing or discharge from wound. Denies chest pain/pressure, palpitations.? No shortness of breath.? Denies fever, chills, nausea, vomiting, diarrhea, abdominal pain.? No polyuria or dysuria. In the ED patient was afebrile but slightly hypotensive 105/46. Labs were significant for no leukocytosis, H&H of 8.5/27.4, ESR elevated 95, C-reactive protein of 3.97, elevated BUN of 58, and creatinine of 2.31. CXR showed increased air in the soft tissues and lucency or cystic change in the 1st metatarsal head, likely osteomyelitis. Pt was treated with ceftriaxone and vanco. Pt will be admitted to the hospital for treatment of osteomyelitis with IV antibiotics. Hospital course The patient was admitted for treatment of Osteomyelitis right foot. started on broad spectrum antibiotics as blood cultures remained negative. evaluated by vascular surgeon dr Tee who did right below knee amputation with good results. pain fairly controlled on Oxycodone. antibiotics changed to PO Doxycycline. Noted to have acute on chronic anemia with low iron stores likely from blood loss related to surgery and CKD. given IV iron and will be discharged on PO iron pills twice daily with a plan to follow up with nephrology as outpatient. Continue Doxycycline as prescribed Oxycodone as needed for pain start Iron supplement for anemia Follow with dr Tee in 2 weeks for suture and vitor removal Time Spent with Patient Time attestation: Total time managing care of this patient today ____ minutes. Discharge coordination time: Greater than 30 minutes Quality: Safe Use of Opioids Does Pt have an Active Cancer Diagnosis on the Problem List?: No Quality: Stroke Does the patient have a stroke diagnosis?: No Physical Exam Vital Signs: Vital Signs: Last Vital Signs Temp 98.6 F 09/23/22 07:40 Pulse 73 09/23/22 07:40 Resp 18 09/23/22 07:40 BP 179/77 H 09/23/22 07:40 Pulse Ox 95 09/23/22 07:40 O2 Del Method Room Air 09/23/22 07:40 O2 Flow Rate 2 09/21/22 08:00 BMI result Body Mass Index 26.6 Const: Other: Constitutional : Awake, not in distress Neck : Normal inspection, Supple Cardiovascular : RRR, no JVP, no lower extremity edema Respiratory : good bilateral air entry, no crackles, wheezes or rhonchi Gastrointestinal: soft, lax, Normal bowel sounds, Non tender Skin : Warm, Dry Skeletal: Right below knee amputation covered with dressing Neurological : Alert & oriented x3, No focal deficit DS: Data Data Completed and Pending Completed studies during hospitalization [Text1]: Procedures Detachment at Right 1st Toe, Complete, Open Approach (07/03/22) Insertion of Infusion Device into Superior Vena Cava, Percutaneous Approach (01/17/22) Ultrasonography of Superior Vena Cava, Guidance (01/17/22) Pending studies at discharge: Pending at discharge 09/20/22 14:52 Surgical [PTH] Routine Labs on day of discharge: Laboratory Results - last 24 hr 09/22/22 09/22/22 09/23/22 16:17 20:00 07:45 WBC RBC Hgb Hct MCV MCH MCHC RDW Plt Count MPV Absolute Nucleated RBC Nucleated RBC % (auto) Sodium Potassium Chloride Carbon Dioxide Anion Gap BUN Creatinine Estim Creat Clear Calc Estimated GFR POC Glucose 141 H 188 H 116 H Fasting Glucose Calcium Iron TIBC % Saturation Unsat Iron Binding Total Bilirubin AST ALT Alkaline Phosphatase Total Protein Albumin 09/23/22 09/23/22 09/23/22 10:05 10:05 10:05 WBC 14.9 H RBC 3.06 L Hgb 7.6 L Hct 24.4 L MCV 79.7 L MCH 24.8 L MCHC 31.1 RDW 17.3 H Plt Count 392 MPV 10.1 Absolute Nucleated RBC 0.000 Nucleated RBC % (auto) 0.0 Sodium 142 Potassium 4.0 Chloride 107 Carbon Dioxide 26 Anion Gap 13 BUN 20 H Creatinine 1.20 Estim Creat Clear Calc 44.3 Estimated GFR 58 POC Glucose Fasting Glucose 180 H Calcium 8.3 L Iron 13 L TIBC 165 L % Saturation 8 L Unsat Iron Binding 152 Total Bilirubin 0.7 AST 34 ALT 13 Alkaline Phosphatase 78 Total Protein 6.1 L Albumin 2.8 L 09/23/22 11:30 WBC RBC Hgb Hct MCV MCH MCHC RDW Plt Count MPV Absolute Nucleated RBC Nucleated RBC % (auto) Sodium Potassium Chloride Carbon Dioxide Anion Gap BUN Creatinine Estim Creat Clear Calc Estimated GFR POC Glucose 181 H Fasting Glucose Calcium Iron TIBC % Saturation Unsat Iron Binding Total Bilirubin AST ALT Alkaline Phosphatase Total Protein Albumin Imaging Chest x-ray: Radiologist's impression: ITS Impressions Foot X-Ray 09/13/22 15:49 IMPRESSION: Increasing air in the soft tissues and lucency or cystic change in the first metatarsal head. Osteomyelitis of the first metatarsal head should be considered. Further evaluation with MRI or bone scan should be considered. Head CT 09/16/22 10:00 IMPRESSION: No acute intracranial findings. 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 Right maxillary sinus disease. Discharge Plan Discharge Anticipated Discharge Date/Time: 09/23/22 12:12 Patient Disposition: [facility] Discharge Diagnosis: Right below knee amputation Right foot osteomyelitis Referrals: [facility] [Other] - 1 Week Tree Saha MD [Primary Care Provider] - 1 Week Discharge Medications: New doxycycline monohydrate 100 mg Capsule 100 mg PO BID Qty: 10 0RF ferrous sulfate 324 mg (65 mg iron) Tablet,Delayed Release (Dr/Ec) 324 mg PO BIDWM Qty: 60 0RF docusate sodium 100 mg Capsule 100 mg PO DAILY Qty: 30 0RF oxycodone 5 mg Tablet 5 mg PO Q4H PRN (Reason: Pain, Severe (Pain Scale 7-10)) Qty: 20 0RF Rx Instructions: Partial Fill upon patient request. polyethylene glycol 3350 17 gram Powder In Packet 17 g PO DAILY Qty: 30 0RF Continued insulin glargine [Lantus U-100 Insulin] 100 unit/mL solution 15 unit subcut BEDTIME atorvastatin 80 mg tablet 80 mg PO BEDTIME amlodipine 10 mg tablet 10 mg PO BEDTIME omeprazole 20 mg capsule,delayed release(DR/EC) 20 mg PO DAILY@0630 hydralazine 50 mg Tablet 50 mg PO BID metoprolol succinate 50 mg Tablet Extended Release 24 Hr 50 mg PO DAILY cholecalciferol (vitamin D3) 25 mcg (1,000 unit) tablet 1 tab PO DAILY Jardiance 10 mg tablet 10 mg PO DAILY losartan 50 mg tablet 50 mg PO DAILY furosemide 40 mg tablet 40 mg BID oxycodone 5 mg Tablet 5 mg PO Q4H PRN (Reason: Pain, Severe (Pain Scale 7-10)) Qty: 15 0RF Rx Instructions: Partial Fill upon patient request. (DME) compr.stocking,knee,long,large Misc See Rx Instructions .Route Qty: 12 0RF Rx Instructions: As directed (DME) compress.stocking,knee,reg,lrg Misc See Rx Instructions .Route Qty: 2 0RF Rx Instructions: As directed aspirin 81 mg Tablet,Chewable 81 mg PO DAILY hydroxyzine HCl 10 mg tablet 10 mg PO TID insulin lispro 100 unit/mL Cartridge 1 sliding scale dose SUBCUT USEASDIRECTD Discharge Orders: Discharge Order (Routine); Ordered 09/23/22 Ordered By: Douglas Yee Diet: Advance to usual diet Activity on Discharge: As tolerated Stand Alone Forms: Patient Portal Discharge page Activity Restrictions/Additional Instructions: Wound care upon discharge: xeroform, 4x4 and Kerlix wrap to be changed daily. Please call Dr. Tee at [phone] for 2 week follow up for suture and staple removal Care Plan Goals: Read below Health Concerns: Read below Plan of Treatment: Read below Assessment: You were admitted to the hospital for treatment of bone infection of right foot. evaluated by dr Tee from surgery who decided to do below knee amputation which went well. evaluated by physical therapy team who recommended short term rehablitation. Kidney function improved to baseline as you were evaluated by nephrology team. Continue Doxycycline as prescribed Oxycodone as needed for pain start Iron supplement for anemia Follow with dr Tee in 2 weeks for suture and vitor removal
[2022-09-23 13:32] LABS: COVID-19 Test Negative (Negative); IDNOW Serial# 08D9AD1C
[2022-09-23] MEDS: Iron Sucrose Complex 200 MG in 0.9 % Sodium Chloride 100 ML 440 MG IV (14:36)
== END 2022-09-23 16:02 | disposition skilled nursing facility (03) | DRG 474 ==
LOC: HO.ED 17:01 → HO.EDOVER 18:56 → HO.S3 19:01
PROVIDERS: Hospitalist; Internal Medicine; Physician Assistant Medical; Surgery Vascular Surgery; Admitting Provider Student in an Organized Health Care Education/Training Program; Emergency Provider Emergency Medicine; PCP Family Medicine; Visit Provider Student in an Organized Health Care Education/Training Program
PROC: 0Y6H0Z1 Detachment at Right Lower Leg, High, Open Approach (ICD-10-PCS; CPT 27880; principal; 2022-09-20 14:00)
DX: T87.43 Infection of amputation stump, right lower extremity (principal); G92.8 Other toxic encephalopathy; I13.0 Hypertensive heart and chronic kidney disease with heart failure and stage 1 through stage 4 chronic kidney disease, or unspecified chronic kidney disease; I50.32 Chronic diastolic (congestive) heart failure; M86.171 Other acute osteomyelitis, right ankle and foot; N17.9 Acute kidney failure, unspecified; E11.52 Type 2 diabetes mellitus with diabetic peripheral angiopathy with gangrene; L97.416 Non-pressure chronic ulcer of right heel and midfoot with bone involvement without evidence of necrosis; D62 Acute posthemorrhagic anemia; E11.69 Type 2 diabetes mellitus with other specified complication; E11.22 Type 2 diabetes mellitus with diabetic chronic kidney disease; F03.90 Unspecified dementia, unspecified severity, without behavioral disturbance, psychotic disturbance, mood disturbance, and anxiety; J44.9 Chronic obstructive pulmonary disease, unspecified; N18.32 Chronic kidney disease, stage 3b; E88.09 Other disorders of plasma-protein metabolism, not elsewhere classified; F01.50 Vascular dementia, unspecified severity, without behavioral disturbance, psychotic disturbance, mood disturbance, and anxiety; I69.398 Other sequelae of cerebral infarction; E11.621 Type 2 diabetes mellitus with foot ulcer; D63.1 Anemia in chronic kidney disease; H53.461 Homonymous bilateral field defects, right side; Z91.199 Patient's noncompliance with other medical treatment and regimen due to unspecified reason; Z20.822 Contact with and (suspected) exposure to COVID-19; Z87.891 Personal history of nicotine dependence; Z88.0 Allergy status to penicillin; Z79.4 Long term (current) use of insulin; Z79.82 Long term (current) use of aspirin; Z79.899 Other long term (current) drug therapy
CPT/HCPCS: 36415; 70450; 73620; 80048; 80053; 80202; 82565; 82947; 83540; 83605; 83735; 85025; 85027; 85652; 86140; 86850; 86900; 86901; 87040; 87635; 88307; 88311; 99285; J0696; J1170; J1650; J1756; J1956; J2270; J2795; J3370; P9047

== ENCOUNTER → 2022-10-08 08:50 | Outpatient (BNVA) | payer OTHER, SELFPAY | PROVIDERS: PCP Family Medicine; Visit Provider Surgery Vascular Surgery | DX: Z47.81 Encounter for orthopedic aftercare following surgical amputation (principal); Z89.511 Acquired absence of right leg below knee | CPT/HCPCS: 99212 ==

== ENCOUNTER → 2022-10-22 09:36 | Outpatient (BNVA) | payer OTHER, SELFPAY | PROVIDERS: PCP Family Medicine; Visit Provider Surgery Vascular Surgery | DX: Z89.511 Acquired absence of right leg below knee (principal) | CPT/HCPCS: 99212 ==

== ENCOUNTER → 2022-11-12 10:53 | Outpatient (BNVA) | payer OTHER, SELFPAY | PROVIDERS: PCP Family Medicine; Visit Provider Surgery Vascular Surgery | DX: Z47.81 Encounter for orthopedic aftercare following surgical amputation (principal); I73.9 Peripheral vascular disease, unspecified; Z89.511 Acquired absence of right leg below knee | CPT/HCPCS: 99212 ==

== ENCOUNTER → 2024-02-17 10:16 | Outpatient (RCR) | payer MEDICARE, MEDICAID, SELFPAY ==
[2020-09-12 14:26] VITALS: BP 159/71; PULSE 66; RESP 12; TEMP 36.4; O2SAT 96; BMI 29.8
--- NOTE | 2020-09-12 15:09 | P.CNHO_ITS ---
Subjective - Subjective Chief complaint: Lung nodule Patient: new to practice Consult date: 09/12/20 Requesting Physician: ER physician Medical Summary: Diagnosis: Multiple lung masses Chest x-ray showed lung nodule, follow-up CT chest 08/31/2020 revealed 1. A 2.3 cm spiculated, lobulated right pulmonary nodule with an adjacent satellite lesion, most concerning for a primary pulmonary neoplasm. 2. A 1 cm spiculated nodule in the right upper lobe which may correspond to a metastatic or metachronous lesion. 3. A 1 cm spiculated subpleural focus at the left lung apex not significantly changed from 2016, most likely corresponding to pleural parenchymal scarring. HPI - Consult Narrative Reason for consult: Lung nodules Narrative: Jerome Davis is a 79 year old male referred from the ED for evaluation of lung nodules. He is accompanied by his son today. Patient is currently residing in a rehabilitation center after having suffered a stroke in July. He has recovered well and is slated to be discharged home in the next couple of days. Patient denies any complaints such as cough, shortness of lars ath, fever or chills. His appetite is good. His weight is stable. He quit smoking 30 years ago. He went to the emergency room on the day of CT scan because of a fall. It appears to have been a mechanical fall, rest of workup was negative. Review of Systems - Constitutional Reports as per HPI, Reports no additional constitutional complaints - Cardiovascular Reports no additional cardiovascular complaints - Respiratory Reports no additional respiratory complaints - Gastrointestinal Reports no additional gastrointestinal complaints Oncology Screenings - ECOG Performance Status ECOG Performance Status: 2 [facility] Medical History: Medical History (Last Reviewed 08/31/20 @ 13:18 by Blanca Dela Cruz NP) COPD (chronic obstructive pulmonary disease) Diabetes HTN (hypertension) Hyperlipidemia Pneumonia Stroke Social History: Social History (Last Updated 09/12/20 @ 14:35 by Krystyna Contreras) Living Situation History: Household Members: Spouse Housing: House Alcohol History: Alcohol intake: never Alcohol History Details: Alcohol intake frequency: does not drink Tobacco History: Packs Per Day: 1 Advance Directives: Advance Directives Date on File: 08/31/20 Occupation Assessmet: service: No Current occupational status: retired Smoking status: Former smoker Home Medications and Allergies Home Medications Medication Instructions Recorded Confirmed Type amlodipine 10 mg PO BEDTIME 07/27/20 09/12/20 History aspirin 81 mg PO DAILY 07/27/20 09/12/20 History atorvastatin 80 mg PO BEDTIME 07/27/20 09/12/20 History cholecalciferol (vitamin D3) 25 mcg PO DAILY 07/27/20 09/12/20 History furosemide 40 mg PO DAILY 07/27/20 09/12/20 History glimepiride 4 mg PO DAILY 07/27/20 09/12/20 History insulin asp prt-insulin aspart 37 unit SUBCUT BEDTIME 07/27/20 09/12/20 History [Novolog Mix 70-30FlexPen U-100] insulin asp prt-insulin aspart 48 unit SUBCUT DAILY 07/27/20 09/12/20 History [Novolog Mix 70-30FlexPen U-100] losartan 100 mg PO DAILY 07/27/20 09/12/20 History metoprolol succinate 150 mg PO DAILY 07/27/20 09/12/20 History omeprazole 20 mg PO DAILY@0630 07/27/20 09/12/20 History ascorbic acid (vitamin C) 500 mg PO DAILY 08/31/20 09/12/20 History docusate sodium 1 cap PO BID 08/31/20 09/12/20 History gabapentin 1 cap PO BID 08/31/20 09/12/20 History hydralazine 1 tab PO BID 08/31/20 09/12/20 History hydrocodone-acetaminophen 1 tab PO Q12H PRN 08/31/20 09/12/20 History polyethylene glycol 3350 [Miralax] 17 g PO DAILY 08/31/20 09/12/20 History Allergies Allergy/AdvReac Type Severity Reaction Status Date / Time Penicillins [PENICILLINS] Allergy Intermediate RASH Verified 08/31/20 12:51 Physical Exam Vital signs: Vital Signs Temp 97.5 F 09/12/20 14:26 Pulse 66 09/12/20 14:26 Resp 12 09/12/20 14:26 BP 159/71 H 09/12/20 14:26 Pulse Ox 96 09/12/20 14:26 Intake & Output 09/11/20 09/12/20 09/12/20 18:59 06:59 18:59 Other: Weight 83.9 kg Weight in Grams 97785 Weight 83.9 kg - Constitutional Present: no acute distress - Routine HEENT Exam Head: Present: normal inspection Eye: Present: EOMI, PERRL - Routine Neck Exam Present: supple. Absent: lymphadenopathy - Routine Respiratory Exam Present: CTAB - Routine Cardiovascular Exam Cardiovascular: Present: S1, S2 - Routine Extremities Exam Absent: calf tenderness, pedal edema - Routine Skin Exam Absent: cyanosis, erythema - Routine Neurological Exam Present: alert, oriented X3 Hem/Onc Consult Result - Labs CBC & Chem 7: 09/12/20 15:19 Assessment and Plan (1) Lung nodules Status: Acute 1. This is a 79-year-old male, previous smoker who is presenting with multiple lung nodules. Lung nodule/mass in the right lower lobe which is the largest, spiculated and suspicious for primary lung neoplasm. This is amenable for CT- guided biopsy, this is being scheduled with [facility]. I have asked patient to stop aspirin 5 days before procedure starting today. I have explained to patient and his son that further workup in order to a set in malignancy is warranted. Blood work today shows normal LDH and CEA levels. The left lung nodule has been present since 2016 and is stable. Once diagnosis is established, PET-CT and brain MRI for staging will be ordered. Recommendations about treatment depending on pathological diagnosis. All their questions were answered. Follow-up in 2 weeks.
[2020-09-12 15:25] LABS: MANUAL DIFF FLAG NO
[2020-09-12 15:29] LABS: Basophils Absolute Auto 0.1 X10*3/uL (0.0-0.2); Basophils Percent Auto 0.5 % (0-2); Eosinophils Absolute Auto 0.5 X10*3/uL (0.0-0.4); Hematocrit 36.3 % (42-52); Hemoglobin 11.5 g/dl (14.0-18.0); Imm Gran Abs Auto 0.05 X10*3/uL (0.00-0.03); Imm Gran Pct Auto 0.4 % (0.0-0.4); Lymphocytes Absolute Auto 3.5 X10*3/uL (1.2-4.9); Lymphocytes Percent Auto 29.3 % (20-40); Mean Corpuscular HGB Conc 31.7 g/dl (31.0-36.0); Mean Corpuscular Hemoglobin 28.4 pg (27.0-33.0); Mean Corpuscular Volume 89.6 fL (80-98); Mean Platelet Volume 10.1 fL (9.4-12.4); Monocytes Absolute Auto 0.9 X10*3/uL (0.1-1.2); Monocytes Percent Auto 7.3 % (2-11); Neutrophils Percent Auto 58.5 % (45-73); Platelet Count 429 X10*3/uL (160-400); Red Blood Count 4.05 X10*6/uL (4.60-5.80); Red Cell Distribution Width 15.2 % (11.0-16.0)
[2020-09-12 15:37] LABS: INTERNATIONAL NORM RATIO 1.1 (0.9-1.1); Prothrombin Time 12.8 SEC (10.8-13.0)
[2020-09-12 15:53] LABS: Lactate Dehydrogenase 162 U/L (118-273)
--- NOTE | 2020-09-13 08:48 | MHC.HEMONCMA ---
Patient came in for a consult yesterday for possible lung cancer, patient had a CT which shows a suspicious lung mass. Clinical summary was reviewed and updated. Patient had labs. Dr Dsouza ordered a CT guided lung biopsy for the mass, and he will see Dr Dsouza 5 days after the biopsy. I called and spoke with Swathi from Radiology to book this. I asked her if there was a way to expedite booking, she states she will talk to Angelina and call me back. The patient is in [facility] until tomorrow and then he is being discharged.
--- NOTE | 2020-09-15 09:36 | MHC.HEMONCMA ---
Patient is scheduled for 09/19/2020 at 12:30pm for biopsy. He has to stop the aspirin 3 days prior to biopsy. I called and spoke with Ashely, the patient's step daughter. I told her the date and time and that he needs to stop the aspirin, and that a nurse will be calling to go over more details with her. She is aware and all questions were answered.
--- NOTE | 2020-09-29 16:06 | MHC.HEMONCMA ---
Pts daughter Ashely called inquiring about pt's biopsy. Swathi from x-ray called and gave AMELIA Frank the message that it was rescheduled for 10/12/20 @ 12:30pm. This information was then left on daughters voice mail.
--- NOTE | 2020-10-24 10:57 | P.PNHO_ITS ---
Medical Summary - Medical Summary Date of Service: 10/24/20 Chief complaint: Follow-up Medical Summary: Diagnosis: Multiple lung masses Chest x-ray showed lung nodule, follow-up CT chest 08/31/2020 revealed 1. A 2.3 cm spiculated, lobulated right pulmonary nodule with an adjacent satellite lesion, most concerning for a primary pulmonary neoplasm. 2. A 1 cm spiculated nodule in the right upper lobe which may correspond to a metastatic or metachronous lesion. 3. A 1 cm spiculated subpleural focus at the left lung apex not significantly changed from 2016, most likely corresponding to pleural parenchymal scarring. Interval History Interval history: Patient is here to discuss results of recent lung biopsy. He offers no c omplaints. Specifically, he denies cough, pleuritic chest pain or shortness of breath. No loss of appetite, fatigue or weight loss. Review of Systems - Constitutional Reports as per HPI, Reports no additional constitutional complaints PENDING SALE TO [facility] Medical History: Medical History (Last Reviewed 08/31/20 @ 13:18 by Blanca Dela Cruz NP) COPD (chronic obstructive pulmonary disease) Diabetes HTN (hypertension) Hyperlipidemia Pneumonia Stroke Social History: Social History (Last Updated 09/12/20 @ 14:35 by Krystyna Contreras) Living Situation History: Household Members: Spouse Housing: House Alcohol History: Alcohol intake: never Alcohol History Details: Alcohol intake frequency: does not drink Tobacco History: Smoking Status: Former smoker Packs Per Day: 1 Smoking Quit Date: 2000 Substance Use History: Use of substances other than those prescribed or required for medical reasons : No Advance Directives: Advance Directives Date on File: 08/31/20 Occupation Assessmet: service: No Current occupational status: retired Smoking status: Former smoker Oncology Screenings - ECOG Performance Status ECOG Performance Status: 2 Home Medications and Allergies Home Medications Medication Instructions Recorded Confirmed Type amlodipine 10 mg PO BEDTIME 07/27/20 09/12/20 History aspirin 81 mg PO DAILY 07/27/20 09/12/20 History atorvastatin 80 mg PO BEDTIME 07/27/20 09/12/20 History cholecalciferol (vitamin D3) 25 mcg PO DAILY 07/27/20 09/12/20 History furosemide 40 mg PO DAILY 07/27/20 09/12/20 History glimepiride 4 mg PO DAILY 07/27/20 09/12/20 History insulin asp prt-insulin aspart 37 unit SUBCUT BEDTIME 07/27/20 09/12/20 History [Novolog Mix 70-30FlexPen U-100] insulin asp prt-insulin aspart 48 unit SUBCUT DAILY 07/27/20 09/12/20 History [Novolog Mix 70-30FlexPen U-100] losartan 100 mg PO DAILY 07/27/20 09/12/20 History metoprolol succinate 150 mg PO DAILY 07/27/20 09/12/20 History omeprazole 20 mg PO DAILY@0630 07/27/20 09/12/20 History ascorbic acid (vitamin C) 500 mg PO DAILY 08/31/20 09/12/20 History docusate sodium 1 cap PO BID 08/31/20 09/12/20 History gabapentin 1 cap PO BID 08/31/20 09/12/20 History hydralazine 1 tab PO BID 08/31/20 09/12/20 History hydrocodone-acetaminophen 1 tab PO Q12H PRN 08/31/20 09/12/20 History polyethylene glycol 3350 [Miralax] 17 g PO DAILY 08/31/20 09/12/20 History Allergies Allergy/AdvReac Type Severity Reaction Status Date / Time Penicillins [PENICILLINS] Allergy Intermediate RASH Verified 09/19/20 10:13 Exam Vital signs: Vital Signs Temp 97.5 F 09/12/20 14:26 Pulse 66 09/12/20 14:26 Resp 12 09/12/20 14:26 BP 159/71 H 09/12/20 14:26 Pulse Ox 96 09/12/20 14:26 Weight 83.9 kg Body Mass Index 29.8 - Constitutional Present: no acute distress - Routine HEENT Exam Head: Present: normal inspection - Routine Respiratory Exam Present: CTAB - Routine Cardiovascular Exam Cardiovascular: Present: S1, S2 - Routine Extremities Exam Absent: calf tenderness, pedal edema - Routine Skin Exam Absent: cyanosis, erythema - Routine Neurological Exam Present: alert, oriented X3 Data - Labs CBC & Chem 7: 09/12/20 15:19 Labs: 09/12/20 15:19 Carcinoembryonic Antigen Routine Complete Blood Count Auto Diff Routine Lactate Dehydrogenase Routine PT with INR [Prothrombin Time INR] Routine Laboratory Last Values WBC 12.0 X10*3/uL (4.8-10.8) H 09/12/20 15:19 RBC 4.05 X10*6/uL (4.60-5.80) L 09/12/20 15:19 Hgb 11.5 g/dl (14.0-18.0) L 09/12/20 15:19 Hct 36.3 % (42-52) L 09/12/20 15:19 MCV 89.6 fL (80-98) 09/12/20 15:19 MCH 28.4 pg (27.0-33.0) 09/12/20 15:19 MCHC 31.7 g/dl (31.0-36.0) 09/12/20 15:19 RDW 15.2 % (11.0-16.0) 09/12/20 15:19 Plt Count 429 X10*3/uL (160-400) H D 09/12/20 15:19 MPV 10.1 fL (9.4-12.4) 09/12/20 15:19 Immature Gran % (Auto) 0.4 % (0.0-0.4) 09/12/20 15:19 Neut % (Auto) 58.5 % (45-73) 09/12/20 15:19 Lymph % (Auto) 29.3 % (20-40) 09/12/20 15:19 [place] % (Auto) 7.3 % (2-11) 09/12/20 15:19 Eos % (Auto) 4.0 % (0-4) 09/12/20 15:19 Baso % (Auto) 0.5 % (0-2) 09/12/20 15:19 Lymph # (Auto) 3.5 X10*3/uL (1.2-4.9) 09/12/20 15:19 [place] # (Auto) 0.9 X10*3/uL (0.1-1.2) 09/12/20 15:19 Eos # (Auto) 0.5 X10*3/uL (0.0-0.4) H 09/12/20 15:19 Baso # (Auto) 0.1 X10*3/uL (0.0-0.2) 09/12/20 15:19 Abs Immat Gran (auto) 0.05 X10*3/uL (0.00-0.03) H 09/12/20 15:19 Absolute Neuts (auto) 7.0 X10*3/uL (2.0-8.3) 09/12/20 15:19 Absolute Nucleated RBC 0.000 X10*3/uL (0.0-0.012) 09/12/20 15:19 Nucleated RBC % (auto) 0.0 /100WBC (0.0-0.2) 09/12/20 15:19 PT 12.8 SEC (10.8-13.0) 09/12/20 15:19 INR 1.1 (0.9-1.1) 09/12/20 15:19 Lactate Dehydrogenase 162 U/L (118-273) 09/12/20 15:19 Carcinoembryonic Ag 1.40 ng/mL 09/12/20 15:19 Progress Note: A/P (1) Lung nodules Status: Acute Assessment and plan: 1. This is a 79-year-old male presenting with multiple lung nodules. Lung nodule/mass in the right lower lobe which is the largest, spiculated and suspicious for primary lung neoplasm. FNA of this mass performed 10/13/2020 revealed lung adenocarcinoma. Molecular markers are pending. I discussed above diagnosis with patient and his son in the presence of interpreter for the deaf. They are willing to proceed with further workup including staging. Whole-body PET-CT and brain MRI with contrast has been ordered. Depending on this and results of molecular markers, further recommendations about treatment will be made. Follow-up in 2 weeks. - Time Spent With Patient Total time spent is greater than 50% in coordination of care (as documented) at patient's floor/unit and/or counseling patient: 15 - 24 minutes
[2020-10-24 11:05] VITALS: BP 152/67; PULSE 70; RESP 14; TEMP 36.9; O2SAT 96; BMI 32.3
--- NOTE | 2020-10-24 14:20 | MHC.HEMONCMA ---
Patient came in for a follow up of test results, biopsy is positive for cancer. Clinical summary was reviewed and updated. Patient had labs and will return in 2 weeks for a follow up. Brain MRI and PET scan have been ordered and in the process of being scheduled.
--- NOTE | 2020-10-24 16:03 | MHC.HEMONCSW ---
PATIENT IS A 79 YEAR OLD MALE. INDEPENDENT BUT NEEDS SUPERVISION DUE TO STROKE RELATED DEMENTIA. SON PIEDAD ACCOMPANIED HIM TODAY. DIAGNOSIS IS LUNG CANCER. [facility] IS ARRANGING FURTHER WORK UP FOR MRI AND PET SCAN. ALERT BUT CONFUSED. REASSURANCE, GUIDANCE, EDUCATION AND SUPPORT PROVIDED.
--- NOTE | 2020-11-07 07:56 | MHC.HEMONCMA ---
Filled out [facility] imaging form, printed all imaging and path results pertinent to this test and faxed it over, awaiting for a date.
[2020-11-13 10:33] VITALS: BP 160/72; PULSE 68; RESP 14; TEMP 36.6; O2SAT 97; BMI 32.8
--- NOTE | 2020-11-13 10:52 | P.PNHO_ITS ---
Medical Summary - Medical Summary Date of Service: 11/13/20 Chief complaint: Follow-up Medical Summary: Diagnosis: Multiple lung masses Chest x-ray showed lung nodule, follow-up CT chest 08/31/2020 revealed 1. A 2.3 cm spiculated, lobulated right pulmonary nodule with an adjacent satellite lesion, most concerning for a primary pulmonary neoplasm. 2. A 1 cm spiculated nodule in the right upper lobe which may correspond to a metastatic or metachronous lesion. 3. A 1 cm spiculated subpleural focus at the left lung apex not significantly changed from 2016, most likely corresponding to pleural parenchymal scarring. Interval History Interval history: Patient is here in follow-up. He is accompanied by his son today. He underwent brain imaging but not the PET scan yet. He denies any new complaints such as cough or shortness of breath. He did reports no loss of appetite or weight loss. Review of Systems - Constitutional Reports as per HPI, Reports no additional constitutional complaints PMFSH Medical History: Medical History (Last Reviewed 08/31/20 @ 13:18 by Blanca Dela Cruz NP) COPD (chronic obstructive pulmonary disease) Diabetes HTN (hypertension) Hyperlipidemia Pneumonia Stroke Social History: Social History (Last Updated 09/12/20 @ 14:35 by Krystyna Contreras) Living Situation History: Household Members: Spouse Housing: House Alcohol History: Alcohol intake: never Alcohol History Details: Alcohol intake frequency: does not drink Tobacco History: Cigarette Packs Per Day: 1 Advance Directives: Advance Directives Date on File: 08/31/20 Occupation Assessmet: service: No Current occupational status: retired Home Medications and Allergies Home Medications Medication Instructions Recorded Confirmed Type amlodipine 10 mg PO BEDTIME 07/27/20 09/12/20 History aspirin 81 mg PO DAILY 07/27/20 09/12/20 History atorvastatin 80 mg PO BEDTIME 07/27/20 09/12/20 History cholecalciferol (vitamin D3) 25 mcg PO DAILY 07/27/20 09/12/20 History furosemide 40 mg PO DAILY 07/27/20 09/12/20 History glimepiride 4 mg PO DAILY 07/27/20 09/12/20 History insulin asp prt-insulin aspart 37 unit SUBCUT BEDTIME 07/27/20 09/12/20 History [Novolog Mix 70-30FlexPen U-100] insulin asp prt-insulin aspart 48 unit SUBCUT DAILY 07/27/20 09/12/20 History [Novolog Mix 70-30FlexPen U-100] losartan 100 mg PO DAILY 07/27/20 09/12/20 History metoprolol succinate 150 mg PO DAILY 07/27/20 09/12/20 History omeprazole 20 mg PO DAILY@0630 07/27/20 09/12/20 History ascorbic acid (vitamin C) 500 mg PO DAILY 08/31/20 09/12/20 History docusate sodium 1 cap PO BID 08/31/20 09/12/20 History gabapentin 1 cap PO BID 08/31/20 09/12/20 History hydralazine 1 tab PO BID 08/31/20 09/12/20 History hydrocodone-acetaminophen 1 tab PO Q12H PRN 08/31/20 09/12/20 History polyethylene glycol 3350 [Miralax] 17 g PO DAILY 08/31/20 09/12/20 History Allergies Allergy/AdvReac Type Severity Reaction Status Date / Time Penicillins [PENICILLINS] Allergy Intermediate RASH Verified 09/19/20 10:13 Exam Vital signs: Vital Signs Temp 97.8 F 11/13/20 10:33 Pulse 68 11/13/20 10:33 Resp 14 11/13/20 10:33 BP 160/72 H 11/13/20 10:33 Pulse Ox 97 11/13/20 10:33 Intake & Output 11/12/20 11/13/20 11/13/20 18:59 06:59 18:59 Other: Weight 92.1 kg Weight in Grams 54191 Weight 92.1 kg Body Mass Index 32.8 - Constitutional Present: no acute distress - Routine HEENT Exam Head: Present: normal inspection - Routine Respiratory Exam Present: CTAB - Routine Cardiovascular Exam Cardiovascular: Present: S1, S2 - Routine Extremities Exam Absent: calf tenderness, pedal edema - Routine Skin Exam Absent: cyanosis, erythema - Routine Neurological Exam Present: alert, oriented X3 Data - Labs CBC & Chem 7: 09/12/20 15:19 Labs: 09/12/20 15:19 Carcinoembryonic Antigen Routine Complete Blood Count Auto Diff Routine Lactate Dehydrogenase Routine PT with INR [Prothrombin Time INR] Routine Laboratory Last Values WBC 12.0 X10*3/uL (4.8-10.8) H 09/12/20 15:19 RBC 4.05 X10*6/uL (4.60-5.80) L 09/12/20 15:19 Hgb 11.5 g/dl (14.0-18.0) L 09/12/20 15:19 Hct 36.3 % (42-52) L 09/12/20 15:19 MCV 89.6 fL (80-98) 09/12/20 15:19 MCH 28.4 pg (27.0-33.0) 09/12/20 15:19 MCHC 31.7 g/dl (31.0-36.0) 09/12/20 15:19 RDW 15.2 % (11.0-16.0) 09/12/20 15:19 Plt Count 429 X10*3/uL (160-400) H D 09/12/20 15:19 MPV 10.1 fL (9.4-12.4) 09/12/20 15:19 Immature Gran % (Auto) 0.4 % (0.0-0.4) 09/12/20 15:19 Neut % (Auto) 58.5 % (45-73) 09/12/20 15:19 Lymph % (Auto) 29.3 % (20-40) 09/12/20 15:19 [place] % (Auto) 7.3 % (2-11) 09/12/20 15:19 Eos % (Auto) 4.0 % (0-4) 09/12/20 15:19 Baso % (Auto) 0.5 % (0-2) 09/12/20 15:19 Lymph # (Auto) 3.5 X10*3/uL (1.2-4.9) 09/12/20 15:19 [place] # (Auto) 0.9 X10*3/uL (0.1-1.2) 09/12/20 15:19 Eos # (Auto) 0.5 X10*3/uL (0.0-0.4) H 09/12/20 15:19 Baso # (Auto) 0.1 X10*3/uL (0.0-0.2) 09/12/20 15:19 Abs Immat Gran (auto) 0.05 X10*3/uL (0.00-0.03) H 09/12/20 15:19 Absolute Neuts (auto) 7.0 X10*3/uL (2.0-8.3) 09/12/20 15:19 Absolute Nucleated RBC 0.000 X10*3/uL (0.0-0.012) 09/12/20 15:19 Nucleated RBC % (auto) 0.0 /100WBC (0.0-0.2) 09/12/20 15:19 PT 12.8 SEC (10.8-13.0) 09/12/20 15:19 INR 1.1 (0.9-1.1) 09/12/20 15:19 Lactate Dehydrogenase 162 U/L (118-273) 09/12/20 15:19 Carcinoembryonic Ag 1.40 ng/mL 09/12/20 15:19 Progress Note: A/P (1) Lung nodules Status: Acute Assessment and plan: 1. This is a 79-year-old male presenting with multiple lung nodules. Lung mass in the right lower lobe which is the largest, spiculated and suspicious for primary lung neoplasm. FNA of this mass performed 10/13/2020 revealed lung adenocarcinoma. Molecular markers, EGFR and alk mutations negative, remaining tests are pending. Staging brain MRI negative for metastasis. PET-CT scheduled for tomorrow. Depending on staging workup, further recommendations to be made. Follow-up in 1 week. - Time Spent With Patient Total time spent is greater than 50% in coordination of care (as documented) at patient's floor/unit and/or counseling patient: less than 15 minutes
--- NOTE | 2020-11-13 14:39 | MHC.HEMONCMA ---
Patient had a follow up today, we booked his PET scan for tomorrow at 10:15am. Patient is aware of time and date. Clinical summary was reviewed and updated. Patient did not have labs, and will return 1 week after today.
--- NOTE | 2020-11-14 11:37 | MHC.HEMONC ---
Pt here for blood sugar check. POC blood sugar via finger stick 198. Results reported to Dr Dsouza. Plan for family to contact [facility] for regular scheduled insulin dose at home to be administered by [facility]. Family instructed to call if there is a problem. PET scan for today cancelled per department secondary to elevated AM blood sugar of 218 and no insulin taken at home. Pt discharged home.
[2020-11-14 13:12] LABS: Glucose, Whole Blood 198 mg/dL (60-115)
[2020-11-20 09:54] LABS: Hematocrit 34.5 % (42-52); Hemoglobin 10.9 g/dl (14.0-18.0); Mean Corpuscular HGB Conc 31.6 g/dl (31.0-36.0); Mean Corpuscular Hemoglobin 28.6 pg (27.0-33.0); Mean Corpuscular Volume 90.6 fL (80-98); Mean Platelet Volume 11.3 fL (9.4-12.4); Platelet Count 272 X10*3/uL (160-400); Red Blood Count 3.81 X10*6/uL (4.60-5.80); Red Cell Distribution Width 14.4 % (11.0-16.0); White Blood Count 10.8 X10*3/uL (4.8-10.8)
[2020-11-20 10:17] LABS: Alanine Aminotransferase 13 U/L (0-40); Albumin Level 3.8 g/dL (3.5-5.0); Alkaline Phosphatase 113 U/L (39-117); Anion Gap 15 (12-20); Aspartate Amino Transferase 16 U/L (5-37); Bilirubin Total 0.5 mg/dL (0.0-1.0); Blood Urea Nitrogen 24 mg/dL (9-16); Calcium 9.5 mg/dL (8.4-10.2); Carbon Dioxide 29 mmol/L (22-29); Chloride 101 mmol/L (96-108); Creatinine Clr Calc Pharmacy 36.1; Estimated Glomerular Filt Rate 38; Glucose Random 253 mg/dL (60-115); Potassium 4.6 mmol/L (3.3-5.1); Sodium 140 mmol/L (135-145)
--- NOTE | 2020-11-21 15:49 | HE.ONCSEC ---
Call from [facility]- PET Scan appointment cancelled. Pt was instructed to be NPO by mouth 3 hours prior to scan, but pt had a bowl of icecream an hour prior to the appointment. At 4:05 pm I spoke with Ashely the patient's healthcare proxy, and I informed her to call [facility] to reschedule the scan.
--- NOTE | 2020-12-05 16:07 | HE.ONCSEC ---
Called pt's daughter to schedule a follow-up visit with Dr. Dsouza per Dr. Dsouza's request. Daughter informed me that she was on vacation but was going to call back with a date and time.
[2020-12-22 10:39] VITALS: BP 183/78; PULSE 72; RESP 14; TEMP 36.5; O2SAT 95; BMI 32.3
--- NOTE | 2020-12-22 10:39 | PM.HEMONCPN ---
Medical Summary - Medical Summary Date of Service: 12/22/20 Chief complaint: Scheduled follow-up Medical Summary: Diagnosis: Multiple lung masses Chest x-ray showed lung nodule, follow-up CT chest 08/31/2020 revealed 1. A 2.3 cm spiculated, lobulated right pulmonary nodule with an adjacent satellite lesion, most concerning for a primary pulmonary neoplasm. 2. A 1 cm spiculated nodule in the right upper lobe which may correspond to a metastatic or metachronous lesion. 3. A 1 cm spiculated subpleural focus at the left lung apex not significantly changed from 2016, most likely corresponding to pleural parenchymal scarring. Interval History Interval history: Patient was brought in by his stepson who did not stay for the interview. Patient does not know why he is here or that he has lung cancer. A mixer blender was present further interview. He denies any complaints today. [facility] Medical History: Medical History (Last Reviewed 08/31/20 @ 13:18 by Blanca Dela Cruz NP) COPD (chronic obstructive pulmonary disease) Diabetes HTN (hypertension) Hyperlipidemia Pneumonia Stroke Social History: Social History (Last Updated 09/12/20 @ 14:35 by Krystyna Contreras) Living Situation History: Household Members: Spouse Housing: House Alcohol History: Alcohol intake: never Alcohol History Details: Alcohol intake frequency: does not drink Tobacco History: Cigarette Packs Per Day: 1 Advance Directives: Advance Directives Date on File: 08/31/20 Occupation Assessmet: service: No Current occupational status: retired Home Medications and Allergies Home Medications Medication Instructions Recorded Confirmed Type amlodipine 10 mg PO BEDTIME 07/27/20 09/12/20 History aspirin 81 mg PO DAILY 07/27/20 09/12/20 History atorvastatin 80 mg PO BEDTIME 07/27/20 09/12/20 History cholecalciferol (vitamin D3) 25 mcg PO DAILY 07/27/20 09/12/20 History furosemide 40 mg PO DAILY 07/27/20 09/12/20 History glimepiride 4 mg PO DAILY 07/27/20 09/12/20 History insulin asp prt-insulin aspart 37 unit SUBCUT BEDTIME 07/27/20 09/12/20 History [Novolog Mix 70-30FlexPen U-100] insulin asp prt-insulin aspart 48 unit SUBCUT DAILY 07/27/20 09/12/20 History [Novolog Mix 70-30FlexPen U-100] losartan 100 mg PO DAILY 07/27/20 09/12/20 History metoprolol succinate 150 mg PO DAILY 07/27/20 09/12/20 History omeprazole 20 mg PO DAILY@0630 07/27/20 09/12/20 History ascorbic acid (vitamin C) 500 mg PO DAILY 08/31/20 09/12/20 History docusate sodium 1 cap PO BID 08/31/20 09/12/20 History gabapentin 1 cap PO BID 08/31/20 09/12/20 History hydralazine 1 tab PO BID 08/31/20 09/12/20 History hydrocodone-acetaminophen 1 tab PO Q12H PRN 08/31/20 09/12/20 History polyethylene glycol 3350 [Miralax] 17 g PO DAILY 08/31/20 09/12/20 History Allergies Allergy/AdvReac Type Severity Reaction Status Date / Time Penicillins [PENICILLINS] Allergy Intermediate RASH Verified 09/19/20 10:13 Exam Vital signs: Vital Signs Temp 97.8 F 11/13/20 10:33 Pulse 68 11/13/20 10:33 Resp 14 11/13/20 10:33 BP 160/72 H 11/13/20 10:33 Pulse Ox 97 11/13/20 10:33 Weight 92.1 kg Body Mass Index 32.8 - Constitutional Present: no acute distress - Routine HEENT Exam Head: Present: normal inspection - Routine Respiratory Exam Present: CTAB - Routine Cardiovascular Exam Cardiovascular: Present: S1, S2 - Routine Extremities Exam Absent: calf tenderness, pedal edema - Routine Skin Exam Absent: cyanosis, erythema - Routine Neurological Exam Present: alert, oriented X3 Data - Labs CBC & Chem 7: 11/20/20 09:42 11/20/20 09:42 Labs: 09/12/20 15:19 Carcinoembryonic Antigen Routine Complete Blood Count Auto Diff Routine Lactate Dehydrogenase Routine PT with INR [Prothrombin Time INR] Routine Laboratory Last Values WBC 12.0 X10*3/uL (4.8-10.8) H 09/12/20 15:19 RBC 4.05 X10*6/uL (4.60-5.80) L 09/12/20 15:19 Hgb 11.5 g/dl (14.0-18.0) L 09/12/20 15:19 Hct 36.3 % (42-52) L 09/12/20 15:19 MCV 89.6 fL (80-98) 09/12/20 15:19 MCH 28.4 pg (27.0-33.0) 09/12/20 15:19 MCHC 31.7 g/dl (31.0-36.0) 09/12/20 15:19 RDW 15.2 % (11.0-16.0) 09/12/20 15:19 Plt Count 429 X10*3/uL (160-400) H D 09/12/20 15:19 MPV 10.1 fL (9.4-12.4) 09/12/20 15:19 Immature Gran % (Auto) 0.4 % (0.0-0.4) 09/12/20 15:19 Neut % (Auto) 58.5 % (45-73) 09/12/20 15:19 Lymph % (Auto) 29.3 % (20-40) 09/12/20 15:19 [place] % (Auto) 7.3 % (2-11) 09/12/20 15:19 Eos % (Auto) 4.0 % (0-4) 09/12/20 15:19 Baso % (Auto) 0.5 % (0-2) 09/12/20 15:19 Lymph # (Auto) 3.5 X10*3/uL (1.2-4.9) 09/12/20 15:19 [place] # (Auto) 0.9 X10*3/uL (0.1-1.2) 09/12/20 15:19 Eos # (Auto) 0.5 X10*3/uL (0.0-0.4) H 09/12/20 15:19 Baso # (Auto) 0.1 X10*3/uL (0.0-0.2) 09/12/20 15:19 Abs Immat Gran (auto) 0.05 X10*3/uL (0.00-0.03) H 09/12/20 15:19 Absolute Neuts (auto) 7.0 X10*3/uL (2.0-8.3) 09/12/20 15:19 Absolute Nucleated RBC 0.000 X10*3/uL (0.0-0.012) 09/12/20 15:19 Nucleated RBC % (auto) 0.0 /100WBC (0.0-0.2) 09/12/20 15:19 PT 12.8 SEC (10.8-13.0) 09/12/20 15:19 INR 1.1 (0.9-1.1) 09/12/20 15:19 Lactate Dehydrogenase 162 U/L (118-273) 09/12/20 15:19 Carcinoembryonic Ag 1.40 ng/mL 09/12/20 15:19 Progress Note: A/P (1) Lung nodules Status: Acute Assessment and plan: 1. This is a 79-year-old male with advanced dementia diagnosed with lung adenocarcinoma. Lung mass in the right lower lobe which is the largest, spiculated and suspicious for primary lung neoplasm. FNA of this mass performed 10/13/2020 revealed lung adenocarcinoma. Molecular markers, EGFR and alk mutations, NTRK negative, PDL1 positive 80% Staging brain MRI negative for metastasis. PET-CT was scheduled 3 times but his family did not take him for this appointment. I have had multiple discussions with patient's rm Mccord and his healthcare proxy Dat. They have repeatedly stated that they were unable to bring patient for his appointments. His PET-CT was scheduled 3 times but he did not go for any of those appointments. Patient's rm Mccord now states that he does not want to be in charge of patient's care. He would like to put the patient in a snf. I have told the family to make a joint decision. [facility] are calling at different times and making different comments to healthcare providers. For now they have agreed to to bring patient for staging CT chest/abdomen and pelvis which had already been scheduled. Further discussion to follow. - Time Spent With Patient Time Spent with Patient (in minutes): 25 Comment: Over 20 minutes spent discussing with patient's caregivers about management and treatment.
--- NOTE | 2020-12-22 15:06 | MHC.HEMONCMA ---
Patient came in today for a follow up, he was dropped off by [facility] and left alone for this appointment. Alayna was present for interpretation. Clinical summary was reviewed and updated, patient does not remember what he takes for medication. Patient did not have labs. Patient has CT of abdomen/pelvis and chest ordered, once those tests come back the patient will be called for a follow up.
--- NOTE | 2021-01-01 15:54 | MHC.HEMONCMA ---
Patient no showed his CT scans today. I called and spoke with Ashely, she states that she wrote it down for the wrong date. I let her know that we can reschedule for her but if he does not show up for this appt we will have to have a meeting with Dr Dsouza and see what we are going to do. I let her know that i rescheduled him for 01/03/2021 at 3:15pm. She states that she will have him there.
--- NOTE | 2021-01-29 11:20 | HO.HEMONCTE1 ---
[facility] Telehealth - Telehealth Location of Provider rendering services: Office Location of Patient: Home Patient Identification confirmed using: Name, : Yes Telehealth Method: Telephone Patient verbally consented to treatment: Yes Patient verbally consented to billing insurance company: Yes Patient informed of any privacy concerns related to visit: Yes Medical Summary - Medical Summary Date of Service: 01/29/21 Chief complaint: Scheduled follow-up Medical Summary: Diagnosis: Multiple lung masses Chest x-ray showed lung nodule, follow-up CT chest 08/31/2020 revealed 1. A 2.3 cm spiculated, lobulated right pulmonary nodule with an adjacent satellite lesion, most concerning for a primary pulmonary neoplasm. 2. A 1 cm spiculated nodule in the right upper lobe which may correspond to a metastatic or metachronous lesion. 3. A 1 cm spiculated subpleural focus at the left lung apex not significantly changed from 2016, most likely corresponding to pleural parenchymal scarring. Interval History Interval history: This is scheduled tele visit for patient. Patient's stepdaughter Lavern is the historian. Patient is doing well, he has no complaints. This visit was to discuss results of imaging study and further plan of care. Home Medications and Allergies Home Medications Medication Instructions Recorded Confirmed Type amlodipine 10 mg tablet 10 mg PO BEDTIME 07/27/20 09/12/20 History aspirin 81 mg tablet,delayed 81 mg PO DAILY 07/27/20 09/12/20 History release atorvastatin 80 mg tablet 80 mg PO BEDTIME 07/27/20 09/12/20 History cholecalciferol (vitamin D3) 25 25 mcg PO DAILY 07/27/20 09/12/20 History mcg (1,000 unit) tablet furosemide 40 mg tablet 40 mg PO DAILY 07/27/20 09/12/20 History glimepiride 4 mg tablet 4 mg PO DAILY 07/27/20 09/12/20 History insulin aspar prot-insulin aspart 37 unit SUBCUT BEDTIME 07/27/20 09/12/20 History 100 unit/mL (70-30) subcutaneous pen (Novolog Mix 70-30FlexPen U-100) insulin aspar prot-insulin aspart 48 unit SUBCUT DAILY 07/27/20 09/12/20 History 100 unit/mL (70-30) subcutaneous pen (Novolog Mix 70-30FlexPen U-100) losartan 100 mg tablet 100 mg PO DAILY 07/27/20 09/12/20 History metoprolol succinate 100 mg 150 mg PO DAILY 07/27/20 09/12/20 History tablet,extended release 24 hr omeprazole 20 mg capsule,delayed 20 mg PO DAILY@0630 07/27/20 09/12/20 History release ascorbic acid (vitamin C) 500 mg 500 mg PO DAILY 08/31/20 09/12/20 History tablet docusate sodium 100 mg capsule 1 cap PO BID 08/31/20 09/12/20 History gabapentin 100 mg capsule 1 cap PO BID 08/31/20 09/12/20 History hydralazine 50 mg tablet 1 tab PO BID 08/31/20 09/12/20 History hydrocodone 7.5 mg-acetaminophen 1 tab PO Q12H PRN 08/31/20 09/12/20 History 325 mg tablet polyethylene glycol 3350 17 gram 17 g PO DAILY 08/31/20 09/12/20 History oral powder packet (Miralax) Allergies Allergy/AdvReac Type Severity Reaction Status Date / Time Penicillins [PENICILLINS] Allergy Intermediate RASH Verified 09/19/20 10:13 Exam Vital signs: Vital Signs Temp 97.7 F 12/22/20 10:39 Pulse 72 12/22/20 10:39 Resp 14 12/22/20 10:39 BP 183/78 H 12/22/20 10:39 Pulse Ox 95 12/22/20 10:39 Weight 90.8 kg Body Mass Index 32.3 Narrative: Pt not examined today - Constitutional Present: no acute distress - Routine HEENT Exam Head: Present: normal inspection - Routine Respiratory Exam Present: CTAB - Routine Cardiovascular Exam Cardiovascular: Present: S1, S2 - Routine Extremities Exam Absent: calf tenderness, pedal edema - Routine Skin Exam Absent: cyanosis, erythema - Routine Neurological Exam Present: alert, oriented X3 Data - Labs CBC & Chem 7: 11/20/20 09:42 11/20/20 09:42 Labs: 09/12/20 15:19 Carcinoembryonic Antigen Routine Complete Blood Count Auto Diff Routine Lactate Dehydrogenase Routine PT with INR [Prothrombin Time INR] Routine Laboratory Last Values WBC 12.0 X10*3/uL (4.8-10.8) H 09/12/20 15:19 RBC 4.05 X10*6/uL (4.60-5.80) L 09/12/20 15:19 Hgb 11.5 g/dl (14.0-18.0) L 09/12/20 15:19 Hct 36.3 % (42-52) L 09/12/20 15:19 MCV 89.6 fL (80-98) 09/12/20 15:19 MCH 28.4 pg (27.0-33.0) 09/12/20 15:19 MCHC 31.7 g/dl (31.0-36.0) 09/12/20 15:19 RDW 15.2 % (11.0-16.0) 09/12/20 15:19 Plt Count 429 X10*3/uL (160-400) H D 09/12/20 15:19 MPV 10.1 fL (9.4-12.4) 09/12/20 15:19 Immature Gran % (Auto) 0.4 % (0.0-0.4) 09/12/20 15:19 Neut % (Auto) 58.5 % (45-73) 09/12/20 15:19 Lymph % (Auto) 29.3 % (20-40) 09/12/20 15:19 [place] % (Auto) 7.3 % (2-11) 09/12/20 15:19 Eos % (Auto) 4.0 % (0-4) 09/12/20 15:19 Baso % (Auto) 0.5 % (0-2) 09/12/20 15:19 Lymph # (Auto) 3.5 X10*3/uL (1.2-4.9) 09/12/20 15:19 [place] # (Auto) 0.9 X10*3/uL (0.1-1.2) 09/12/20 15:19 Eos # (Auto) 0.5 X10*3/uL (0.0-0.4) H 09/12/20 15:19 Baso # (Auto) 0.1 X10*3/uL (0.0-0.2) 09/12/20 15:19 Abs Immat Gran (auto) 0.05 X10*3/uL (0.00-0.03) H 09/12/20 15:19 Absolute Neuts (auto) 7.0 X10*3/uL (2.0-8.3) 09/12/20 15:19 Absolute Nucleated RBC 0.000 X10*3/uL (0.0-0.012) 09/12/20 15:19 Nucleated RBC % (auto) 0.0 /100WBC (0.0-0.2) 09/12/20 15:19 PT 12.8 SEC (10.8-13.0) 09/12/20 15:19 INR 1.1 (0.9-1.1) 09/12/20 15:19 Lactate Dehydrogenase 162 U/L (118-273) 09/12/20 15:19 Carcinoembryonic Ag 1.40 ng/mL 09/12/20 15:19 Progress Note: A/P (1) Lung nodules Status: Acute Assessment and plan: 1. This is a 79-year-old male with advanced dementia diagnosed with lung adenocarcinoma. Lung mass in the right lower lobe which is the largest, spiculated and suspicious for primary lung neoplasm. FNA of this mass performed 10/13/2020 revealed lung adenocarcinoma. Molecular markers, EGFR and alk mutations, NTRK negative, PDL1 positive 80% Staging brain MRI negative for metastasis. PET-CT was scheduled 3 times but his family did not take him for this appointment. I have had multiple discussions with patient's rm Mccord and his healthcare proxy Dat. They have repeatedly stated that they were unable to bring patient for his appointments. His PET-CT was scheduled 3 times but he did not go for any of those appointments. Staging CT chest/abdomen/pelvis performed in January 2021 showed stable right upper and right lower lobe lung nodules. No evidence of metastatic disease. I discussed this with patient's stepdaughter. They are being referred to CT surgeon. I spent there is than 10 minutes explaining this to the patient and his daughter via telephone. - Time Spent With Patient Time Spent with Patient (in minutes): 10
--- NOTE | 2021-02-09 11:44 | MHC.HEMONCMA ---
Referral created in the tasks tab for Dr Chino for surgery consult.
--- NOTE | 2021-02-13 09:48 | MHC.HEMONC ---
PA WAS REFERRED TO [facility]. [facility] ([id number]) CALLED & LVM. [facility] IS UNABLE TO TAKE ON PT. AT THIS POINT IN TIME BECAUSE HE IS RECEIVING AT HOME SERVICES THRU ANOTHER FACILITY. DR STINSON & SHELLY([facility]) NOTIFIED.
--- NOTE | 2021-03-23 11:25 | MHC.HEMONC ---
Message from Ashely, patient's step daughter that she hasn't heard anything from Dr Chino's office on Dr Dsouza's referral. Call to Katlyn at Dr Chino's office. She reported that they called the patient at on 02/09, 02/23, 03/08 with no response and then sent a letter. A new patient appointment has been scheduled for 04/06@10:30 am. A message was left for Ashely at to contact the Oncology Department to give her an update.
--- NOTE | 2021-09-06 12:41 | HE.ONCSEC ---
GENO FROM [facility] CALLED TO MAKE AN APPT FOR PT. I WILL LET DOCTOR KNOW OF THIS .
--- NOTE | 2021-09-21 10:05 | HE.ONCSEC ---
CALLED PT DUE TO N/S YESTERDAY , PT DID NOT ANSWER , I LEFT A DETAILED MESSAGE INFORMING PT TO CALL BACK TO RESCHEDULE . A N/S LETTER WILL BE MAILED WELL .
== END | disposition home or self-care (01) ==
LOC: HO.ONC 09-12 14:14
PROVIDERS: Visit Provider Internal Medicine
DX: C34.31 Malignant neoplasm of lower lobe, right bronchus or lung (principal); E11.9 Type 2 diabetes mellitus without complications; Z86.73 Personal history of transient ischemic attack (TIA), and cerebral infarction without residual deficits; Z87.891 Personal history of nicotine dependence
CPT/HCPCS: 36415; 80053; 82378; 82947; 83615; 85025; 85027; 85610; 99204; 99212; 99213; 99214; Q3014